=== PATIENT | male | born 1990 | race Caucasian/White ===

== ENCOUNTER 2017-03-06 11:57 | Inpatient (IN) | payer OTHER ==
[~2017-03-06] VITALS: Ht 200.7 cm; Wt 78.2 kg
[2017-03-06] VITALS (8 sets, daily range): BP systolic 107–143; BP diastolic 66–80; PULSE 58–114; RESP 14–22; O2SAT 94–100
--- NOTE | 2017-03-06 13:01 | ED.REPORT ---
HPI-General Illness Date of Service Mar 06, 2017 ED Provider: Nathan Paz DO 27 y/o male with no pertinent hx presents to the ED complaining of 3 episodes of hematemesis about a week ago. The pt was seen at the urgent care for the same complaint and was discharged with antacids, iron and muscle relaxers. Associated sx include melena for a couple of days that gradually resolved, epigastric pain, lower extremity edema, dizziness and fatigue. The pt has been taking Ibuprofen due to his "aggravated back".The pt states "I feel like I'm missing blood. I lost a lot of it and I need a blood transfusion". Nursing Notes Stated Complaint: VOMITING BLOOD/BLOOD IN STOOL Chief Complaint: Male Abdominal Pain Nursing Notes Reviewed: Yes Allergies: Coded Allergies: No Known Allergies (Unverified , 03/06/17) General Time Seen by MD: 13:00 Chief Complaint Vomiting (hematemesis) Hx Obtained From: Patient Arrived By: Walk-in Sudden in Onset?: Yes Onset Occurred: 1 week ago Symptom Duration: 1 day Location: : Abdomen Quality: Painful Radiation: : Does not radiate Severity: Current: Mild Severity: Maximum: Mild Recent Healthcare: Recent doctor visit Similar Sx Previous: No Past Medical History Past Medical History none reported Past Surgical History none reported Smoking History Never Smoker Social History Alcohol Use: Denies alcohol use Drug Use: Denies drug use Ambulatory Status Independent Review of Systems Full Review of Systems Constitutional: Reports: Fatigue Cardiovascular: Reports: Edema GI: Reports: Abdominal pain (epigastric pain), Hematemesis (resolved), Melena ( resolved) Musculoskeletal: Reports: Back pain Neurologic: Reports: Dizziness Complete sys rev & neg: except as marked. Physical Exam Vital Signs Vital Signs Date Time Temp Pulse Resp B/P Pulse Ox O2 Delivery O2 Flow Rate FiO2 03/06/17 13:47 143/67 03/06/17 13:47 136/76 03/06/17 13:47 126/69 03/06/17 13:46 94 22 118/77 100 Room Air 03/06/17 12:03 36.8 114 18 116/72 100 Room Air Initial VS: Reviewed Head / Eyes: Atraumatic, Normocephalic Neck: Supple, Non-tender, Full range of motion Respiratory: Breath sounds normal, Clear to auscultation, No respiratory distress Abdomen / GI: Soft, Non-tender Extremities: Vascular intact, Neuro intact, No swelling, No tenderness Skin: Warm, Dry, No cyanosis Neurologic: Alert, Oriented, Nonfocal General/Constitutional: Awake, Alert Thin Cardiovascular: Heart rate NL, Regular rhythm, Heart sounds NL, No gallop, No murmurs, No rubs Upper Ext Edema: Positive: Bilateral 1+ Rectum / Perineum: Atraumatic Stool is light brown Guaiac positive Interpretation & Diagnostics Lab Results Interpretation Result Diagram: 03/06/17 1451 03/06/17 1320 Test 03/06/17 13:20 03/06/17 14:40 03/06/17 14:51 White Blood Count 9.8th/mm3 (3.8-10.1) Red Blood Count 3.07mil/mm3 (4.40-5.80) Mean Corpuscular Volume 76.9fL (81-100) Mean Corpuscular Hemoglobin 23.8pg (27.0-35.0) Mean Corpuscular Hemoglobin Concent 30.9% (32.0-37.0) Red Cell Distribution Width 14.9% (12.3-15.4) Platelet Count 333bil/L (150-400) Neutrophils (%) (Auto) 76.2% (40-74) Lymphocytes (%) (Auto) 12.7% (14-46) Monocytes (%) (Auto) 9.1% (4-12) Eosinophils (%) (Auto) 1.4% (0-5) Basophils (%) (Auto) 0.2% (0-3) Prothrombin Time 11.7sec (8.1-12.5) Prothromb Time International Ratio 1.09ratio Sodium Level 137mEq/L (134-144) Potassium Level 4.4mEq/L (3.5-5.2) Chloride Level 94mEq/L (97-108) Carbon Dioxide Level 29mmol/L (18-29) Blood Urea Nitrogen 14mg/dL (6-20) Creatinine 0.67mg/dL (0.76-1.27) Estimat Glomerular Filtration Rate 151mL/min (>59) Glucose Level 116mg/dL (60-99) Calcium Level 9.0mg/dL (8.5-10.1) Total Bilirubin 0.2mg/dL (0.0-1.2) Aspartate Amino Transf (AST/SGOT) 65U/L (0-50) Alanine Aminotransferase (ALT/SGPT) 77U/L (0-44) Alkaline Phosphatase 377U/L (25-150) Total Protein 6.1g/dL (6.4-8.4) Albumin 3.1g/dL (3.4-5.0) Hepatitis C Comment . Hemoglobin 6.8g/dL (13.8-17.2) Hematocrit 22.0% (41.0-50.0) X-Ray Chest Interpretation Chest Xray Interpretation: IMPRESSION: No acute cardiopulmonary abnormality Dictated by: David Greer M.D. on 03/06/2017 at 13:24 Approved by: David Greer M.D. on 03/06/2017 at 13:26 View: Portable, 1 view Interpretation / Wet Read by: Interpret - Radiologist Re-Eval/Medical Decision Med Decision/Clinical Course Symptomatic anemia likely due to upper GI bleeding although the patient does not seem to be actively hemorrhaging at this point. We will plan to transfuse in the ER, IV Protonix given, will admit. Time of Eval: 13:50 Re-Evaluation/Progress Note: Rechecked pt. Discussed lab results, imaging results, diagnosis and plan to admit. Pt understands and agrees with the plan for admission. All questions addressed. Consultation #1: Referral / Consult Name: Wild Green MD Call Returned at: 14:01 Orthodontic Treatment Coordinator: Will see patient, Agrees with eval, Agrees with plan Note: Dr. Green will scope the pt tomorrow morning. Consultation #2: Referral / Consult Name: Sravan Marina MD Consulted With: Hospitalist Call Returned at: 14:19 Orthodontic Treatment Coordinator: Will see patient, Agrees with eval, Agrees with plan, Accepts admit Counseled Regarding: Diagnosis, Lab results, Need for admission Discharge & Departure Primary Impression: GI bleed Additional Impression: Symptomatic anemia Disposition: ADMITTED TO HOSPITAL Discharge Condition All VS Reviewed: Yes Referrals: NOPCP (PCP) Crit Care Except Billable Proc Time Spent: 30-74 minutes Services Performed: Patient management by me, Time spent at bedside, Reviewing test results Critical Care Notes: See MDM Scribe Attestation Portions of this note were transcribed by Soni Davison. I,, personally performed the history, physical exam and medical decision-making;I reviewed and confirmed the accuracy of the information in the transcribed note. Signed by Arabella Pinto. 03/06/17 15:54 Nathan Paz DO Mar 06, 2017 13:01 Soni Davison Mar 06, 2017 13:28
[2017-03-06] MEDS ORDERED: 0.9% Sodium Chloride 1,000 ML IV ONE (13:05)
--- NOTE | 2017-03-06 13:28 | DRSVH ---
PROCEDURE: X-RAY CHEST ONE VIEW, PORTABLE ([id number]) INDICATIONS: sob TECHNIQUE: One view of the chest was acquired. COMPARISON: None. FINDINGS: Surgical changes and devices: None. Lungs and pleura: No pleural effusions or pneumothorax. Lungs are clear. Mediastinum: Mediastinal contours appear normal. Heart size is normal. Bones and chest wall: No suspicious bony lesions. Right first rib is mildly hypoplastic. Healed rib fractures left seventh, eighth, ninth and 10th. Overlying soft tissues appear unremarkable. IMPRESSION: No acute cardiopulmonary abnormality Dictated by: David Greer M.D. on 03/06/2017 at 13:24 Approved by: David Greer M.D. on 03/06/2017 at 13:26
[2017-03-06] MEDS ORDERED: LidocaineVisc 2%:Antacid 1:1 10 mL Syringe PO ONE (13:30)
[2017-03-06 13:36] LABS: BASOPHILS % (AUTO) 0.2 % (0-3); EOSINOPHILS % (AUTO) 1.4 % (0-5); MONOCYTES % (AUTO) 9.1 % (4-12); Mean Corpuscular Hemoglobin 23.8 pg (27.0-35.0); Mean Corpuscular Volume 76.9 fL (81-100); NEUTROPHILS % (AUTO) 76.2 % (40-74); Platelet Count 333 bil/L (150-400)
[2017-03-06] MEDS ORDERED: Pantoprazole 4 mg/mL 10 mL Inj IVPUSH ONE (13:55)
[2017-03-06 14:10] LABS: INR 1.09 ratio
[2017-03-06] MEDS ORDERED: Alum-Mag Hydrox-Simeth 30 mL Suspension PO PRN (15:00)
[2017-03-06] MEDS ORDERED: Polyethylene Glycol (PEG) 17 Gm Powder PO PRN (15:00)
[2017-03-06] MEDS ORDERED: Ondansetron 2 mg/mL 2 mL Inj IVPUSH PRN (15:00)
--- NOTE | 2017-03-06 15:25 | PCM.HPMED ---
Subjective Date of Service Mar 06, 2017 Primary Provider: Admitting Physician: Primary Care Physician: Griselda Attending Physician: Chief Complaint: Vomiting blood History of Present Illness: Curtis Malloy is a 27-year-old man without significant past medical history who presented to the [facility] emergency department today due to 3 episodes of hematemesis on Sunday. Patient also notes that he passed some "maki pie filling" appearing stools. The patient has not had any further episodes of hematemesis or melena or hematochezia since Sunday however he has noted that he is quite fatigued and becomes very tachycardic with any exertion. Patient also noticed lower extremity edema for the last 2 days. Patient states that his hematemesis was abrupt in onset and was not preceded by any retching or other emesis. He has previously had a gastric ulcer which was attributed to stress. The patient apparently was seen at urgent care for this complaint and was discharged home with some antacids iron and muscle relaxants. The patient has also noted some epigastric pain. The patient does admit to taking some ibuprofen recently however he states that he took about 600 mg maybe every third day the last several weeks due to back pain. Patient does note that he feels very fatigued and previously in this situation did receive blood and felt significant better. She denies any fevers, chills, nausea. In the emergency department his vital signs were notable for a heart rate of 119 and a blood pressure 116/72. His stool was guaiac positive but brown in appearance per ER documentation. A blood transfusion is pending at this time. Dr. Green of gastroenterology was consulted and has agreed to see the patient. Patient will likely undergo EGD tomorrow morning. Review of Systems: A comprehensive review of systems was performed and is negative except as noted above in history present illness. Allergies Coded Allergies: No Known Allergies (Unverified , 03/06/17) Home Medications Patient denies taking any medications chronically. PMH Patient denies any chronic health problems. Surgical History Patient denies any surgeries. Family History No family history of gastrointestinal problems. Social History Hx Alcohol Use: No Hx Substance Use: Yes (occasional marijuana) Hx Tobacco Use: No Smoking Status: Never Smoker Exam Vital Signs Vital Sign - Last Date Time Temp Pulse Resp B/P Pulse Ox O2 Delivery O2 Flow Rate FiO2 03/06/17 13:47 143/67 03/06/17 13:46 94 22 100 Room Air 03/06/17 12:03 36.8 Exam General: No acute distress, well-developed, well-nourished, appropriately interactive. Marfanoid in appearance. HEENT: Normocephalic, atraumatic. External ears without defect. Pupils equal, round, and reactive to light and accommodation. Anicteric sclerae, moist conjunctivae, and no lid lag. Oropharynx free of erythema and cobble stoning with moist mucosa. Neck: Supple with full range of motion. No jugular venous distension. No lymphadenopathy or thyromegaly. Cardiovascular: Regular rate and rhythm with no murmurs, rubs, or gallops appreciated Pulmonary: Clear to auscultation bilaterally with no crackles, wheezes, or rhonchi. Normal respiratory effort with no use of accessory muscles. Abdomen: Bowel tones present. Soft, mild epigastric tenderness, nondistended. No hepatosplenomegaly or masses appreciated. Extremities: No clubbing, cyanosis. Bilateral nonpitting edema of feet and ankles. Skin: Normal temperature, turgor, and texture; no rash, ulcers, or subcutaneous nodules appreciated. Neurological: Cranial nerves grossly intact. Normal muscle strength, tone, and bulk. Reflexes, coordination, and sensory function within normal limits. No known gait impairment. Psychiatric: Normal mood and affect. Alert and oriented to person, place, and time. Lab and Diagnostics Result Diagram: 03/06/17 1320 03/06/17 1320 X-Rays, CTs and MRIs X-RAY CHEST ONE VIEW, PORTABLE IMPRESSION: No acute cardiopulmonary abnormality Dictated by: David Greer M.D. on 03/06/2017 at 13:24 Assessment & Plan Curtis Malloy is a 27-year-old man without significant past medical history who presented to the [facility] emergency department today due to 3 episodes of hematemesis on Sunday. Patient also notes that he passed some "maki pie filling" appearing stools. The patient has not had any further episodes of hematemesis or melena or hematochezia since Sunday however he has noted that he is quite fatigued and becomes very tachycardic with any exertion. Acute gastrointestinal bleed, likely upper, with associated acute blood loss anemia, present on admission, active - Etiology of gastric chest no bleed is unclear at this time. Patient has had prior EGDs however these were not performed here and no records are available. - Patient does admit to using some NSAIDs however this is not seen to be a very significant amount. - Differential includes AVM associated with connective tissue disorder - Patient has been initiated on a Protonix drip will continue. - Nothing by mouth - IV fluid resuscitation - We will track H&H - Blood transfusion as ordered in the emergency department. - Telemetry monitoring - Gastroneurology consulted, appreciate time and recommendations. Patient will likely undergo EGD tomorrow. Elevated LFTs, hepatocellular patern, present on admission, active -Patient denies any alcohol use or IV drug use -Hepatitis panel pending Marfinoid appearance -Recommend outpatient workup Code Status: Full code Patient is admitted under inpatient status with expected length of stay greater than 2 midnights due to severity of presenting symptoms, risk of adverse event, and complexity of treatment plan. VTE Prophylaxis: SCDs Resuscitation Status: CPR: Attempt Resuscitation Ankita Mariano DO Mar 06, 2017 15:02
[2017-03-06] MEDS ORDERED: Heparin 5,000 Unit/mL Inj SUBQ SCH (16:30)
[2017-03-06] MEDS: 0.9% Sodium Chloride 1,000 ML IV SCH (16:55)
[2017-03-06] MEDS: Pantoprazole 8 mg/Hr Infusion IV SCH ×2 (16:56)
--- NOTE | 2017-03-06 23:11 | CONS ---
[address] [address] CONSULTATION REPORT PATIENT: DREA PELAYO : 1990 MR#: [id number] ADMIT: 03/06/2017 JOB ID: [id number] DATE OF SERVICE: 03/06/2017 REQUESTING PROVIDER: Nathan Paz MD. REASON FOR CONSULTATION: Anemia and GI bleeding. HISTORY OF PRESENT ILLNESS: This is a 27-year-old male who was basically in his usual state of health up until about nine or 10 days ago. He had been taking ibuprofen regularly but not every day for a number of musculoskeletal issues. He developed both hematemesis and melena several times for a short period of time, going from Sunday night through Sunday. Since then, he has not had any further GI bleeding but has been quite pale and felt fatigued and weak. He was seen in urgent care a few days ago, and they recommended he use a little omeprazole, iron and gave him a muscle relaxer. He started to have some symptoms of lower extremity edema along with a little bit of epigastric discomfort and has really had, in essence, early satiety. He came in for further evaluation and was found to be profoundly anemic. ALLERGIES: No known medical allergies MEDICATIONS: Ibuprofen PRN PAST MEDICAL HISTORY: Unremarkable. PAST SURGICAL HISTORY: Unremarkable. FAMILY HISTORY: No GI issues. SOCIAL HISTORY: Denies any substance abuse. Does not use alcohol or tobacco. He is very active and enjoys long boarding. REVIEW OF SYSTEMS: The patient believes that he has probably lost around 30 pounds although he does not really know just how long it has taken for him to drop weight. He denies any problems with dysphagia, heartburn, and currently has no problems with nausea, has not vomited, although weak, as mentioned above. He did have an element of some night sweats but that was around 9-10 days ago and was very short-lived. Otherwise, his review is as per HPI. PHYSICAL EXAMINATION: Blood pressure 121/80, pulse 58, breathing 16, temperature 36.8, 94% on room air. The patient is in no distress. Alert, oriented, appropriate, cooperative, conversational. Family members were at the bedside with him. Lungs clear bilaterally. Good respiratory effort. Heart regular. No significant peripheral pitting edema, perhaps trace bilaterally. Abdomen was soft. There was a minimal amount of discomfort right at the xiphoid process region. No guarding. LABORATORIES: Hemoglobin this morning was 7.3, on the recheck 6.8, white count is normal at 9.8, low MCV at 76.9, platelet count was 333. His INR was 1.09. He has an elevated alkaline phosphatase of 377. AST was 65, ALT 77, bilirubin 0.2, albumin is 3.1. Sodium 137, potassium 4.4, chloride 94, bicarb 29, BUN 14, creatinine 0.67, glucose 116. Hepatitis serologies are pending. IMAGING: Chest x-ray shows no acute cardiopulmonary abnormality. ASSESSMENT AND RECOMMENDATIONS: This is a 27-year-old male with severe anemia and a very brief period of upper gastrointestinal bleeding. He has had weight loss and presentation demonstrates a microcytic picture concerning for a much more chronic underlying GI blood loss. He has been using NSAIDs frequently over the last months. Liver chemistry abnormalities are certainly concerning as well. I think the patient can be on a clear liquid diet this evening, n.p.o. after 9-10 in the morning and we plan to proceed with a diagnostic upper endoscopy. I agree with the proton pump inhibitor placed on as of admission. I agree with hepatitis serology, but in light of his liver chemistries and his presentation with weight loss, I think that abdominal imaging would be appropriate as well and would recommended at least starting out with an abdominal ultrasound. EMIR
[2017-03-07] VITALS (11 sets, daily range): BP systolic 109–127; BP diastolic 67–83; PULSE 62–99; RESP 14–18; O2SAT 96–100
[2017-03-07] MEDS: 0.9% Sodium Chloride 1,000 ML IV SCH ×3 (02:31→23:40)
[2017-03-07] MEDS: Pantoprazole 8 mg/Hr Infusion IV SCH ×4 (02:47→11:56)
[2017-03-07 03:09] LABS: Hepatitis A Antibody IgM Negative (Negative); Hepatitis B Core Antibody IgM Negative (Negative)
--- NOTE | 2017-03-07 04:06 | NUR ---
Comfort At the beginning of shift, patient stated he was having difficulty getting comfortable in his bed because he is fairly tall. Patient asked if it would be possible to get a larger bed. Patient was given a bed that extended out and stated it was much more comfortable for him. Patient has no complaints of pain but states he has difficulty sleeping baseline, because he has a hard time getting comfortable even when he has more options at home. Patient was asked if he would be interested in trying to take medication to help him sleep, but the patient stated he was not interested. Patient A&OX3. Order's for patient to be NPO after 10am on 03/07. Care continues.
[2017-03-07 06:15] LABS: BASOPHILS % (AUTO) 0.2 % (0-3); MONOCYTES % (AUTO) 9.4 % (4-12); Mean Corpuscular Hemoglobin 24.5 pg (27.0-35.0); Mean Corpuscular Volume 78.2 fL (81-100); NEUTROPHILS % (AUTO) 75.2 % (40-74); Platelet Count 328 bil/L (150-400)
[2017-03-07] MEDS ORDERED: Propofol 10,000 mCg/mL 20 mL Inj ONE (09:24)
--- NOTE | 2017-03-07 11:56 | DRSVH ---
PROCEDURE: US ABDOMEN INDICATIONS: ABNORMAL LIVER FUNCTION TEST TECHNIQUE: Real-time scanning was performed of the abdominal and retroperitoneal organs, with image documentatio n. COMPARISON: None. FINDINGS: Liver length: 19.69 cm Gallbladder Wall Thickness: 2-3 mm CHD: Nonvisualized CBD: Nonvisualized Spleen length: 11.86 cm Right kidney length: 14.33 cm Left kidney length: Nonvisualized Aorta(Proximal): 1.98 cm Aorta(Mid): 2.12 cm Aorta(Distal): 1.81 cm RCIA: Nonvisualized LCIA: Nonvisualized Liver: Multiple hypoechoic masses measuring up to 3.6 x 2.8 x 2.4 CM in the left hepatic lobe and 3. 6 x 2.7 x 2.8 CM in the right hepatic lobe.. Gallbladder: Normal gallbladder wall thickness. No cholelithiasis. Biliary ducts: Intrahepatic bile ducts are non-dilated. Extrahepatic bile duct caliber is not well seen. Pancreas: Visualized portions of the pancreas are sonographically normal. Spleen: Spleen is normal in size and homogeneous in echotexture. Kidneys: Right kidney measures 14.3 CM with mildly increased echogenicity. No hydronephrosis. No leah d masses. The left kidney is not identified and cannot be evaluated. Aorta: Visualized aorta is normal in caliber at less than 3 cm. Iliacs: Proximal common iliac arteries are normal in caliber at less than 2.5 cm. IVC: Intrahepatic inferior vena cava is patent. Miscellaneous: No free abdominal fluid. IMPRESSION: 1. Multiple hepatic masses are indeterminate. Recommend CT or MRI with and without contrast for furth er evaluation. 2. The left kidney is not identified. Please correlate with clinical history. Dictated by: New Powers M.D. on 03/07/2017 at 11:49 Approved by: New Powers M.D. on 03/07/2017 at 11:54
[2017-03-07] MEDS ORDERED: Lactated Ringer's 1,000 ML IV ONE (14:34)
[2017-03-07] MEDS: Lactated Ringer's 1,000 ML IV SCH ×3 (15:32→16:14)
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
[2017-03-07] MEDS ORDERED: Ondansetron 2 mg/mL 2 mL Inj IVPUSH PRN (15:35)
[2017-03-07] MEDS ORDERED: MetoCLOpramide 5 mg/mL 2 mL Inj IVPUSH PRN (15:35)
--- NOTE | 2017-03-07 16:15 | PCM.ANEP1 ---
Post Anesthesia PACU Phase 1 Assessment Date of Service: Mar 07, 2017 Vital Signs Vital Signs Date Time Temp Pulse Resp B/P Pulse Ox O2 Delivery O2 Flow Rate FiO2 03/07/17 16:12 36.7 99 16 109/83 100 Room Air 03/07/17 14:08 36.4 73 16 127/76 98 Room Air 03/07/17 12:30 36.5 62 18 124/75 97 Room Air 03/07/17 10:43 86 Anesthetic Administered: GA Level of Alertness: Sleeping, hard to arouse RAHMAN's with Equal Strength: Yes Pain: No Nausea or Vomiting: No CV Function & Hydration Stable: Yes Airway Device: Oxygen Delivery: Room Air Lungs: Normal Air Movement Dermatome Level: Full Sensation PACU Phase 2 Assessment Complications: No Follow up Care: N/A Patient Instructions Provided: N/A Ronald Moore MD Mar 07, 2017 16:15
--- NOTE | 2017-03-07 17:23 | ENDO ---
[address] [address] ENDOSCOPY PROCEDURE PATIENT: DREA PELAYO : 1990 MR#: [id number] ADMIT: 03/06/2017 JOB ID: [id number] DATE OF SERVICE: 03/07/2017 PROCEDURE: Esophagogastroduodenoscopy with biopsies. INDICATIONS: A 27-year-old male with microcytic severe anemia and subacute upper GI bleeding from about 10 or 11 days ago. He has stabilized since then but has lost 30 pounds over an unknown period of time. He had an ultrasound today for abnormal liver chemistries and there were several mass lesions seen. Diagnostic EGD is pursued. EQUIPMENT: [id number]-180J SEDATION: Monitored anesthesia as provided by Dr. Ronald Moore. COMPLICATIONS: None identified. PROCEDURE INFORMATION: After the risks and benefits were explained, written and verbal informed consent was obtained. The patient was brought into the endoscopy suite and placed into the left lateral decubitus position. Sedation was achieved using the above-stated medications with the addition of oxygen via nasal cannula. The scope was introduced into the mouth through the bite block, and advanced under direct visualization ultimately to the second portion of the duodenum. The scope was slowly withdrawn to carefully examine the mucosa for any defects or lesions. Retroflexed views were accomplished in the stomach. The stomach was decompressed. The scope removed from the patient who tolerated the procedure well. FINDINGS: 1. Esophagus: The squamocolumnar junction correlated with the top of the gastric folds. The GEJ was at 46 cm from the incisors. Right at the GE junction was evidence of irregular polypoid structures that prolapsed up and down into the distal esophagus. One of these areas was targeted for biopsy. 2. Stomach: The patient had diffuse gastric polyposis and a large well excavated mass that was quite polypoid in the mid body of the stomach. Multiple photographs were taken of the deep well excavated ulcer with surrounding polypoid appearing mucosa. This was targeted for biopsy. A separate biopsy was taken from more proximal gastric polyp. I was able to navigate the scope past the ulcerated mass effect into the antrum. The pyloric channel appeared to be wide open. 3. Duodenum: There were some scattered diminutive polypoid structures in the duodenum. One of these was sampled for histopathology as well. ENDOSCOPIC DIAGNOSES: 1. Ulcerated highly polypoid mass effect in the gastric body - biopsied. 2. Gastric and duodenal polyposis - biopsied. RECOMMENDATIONS: 1. Await histopathology. 2. Full liquid diet can be commenced today. 3. Continue PPI drip for now. 4. Hepatic protocol MRI is ordered. 5. I would recommend Oncology consultation. Obviously will see what the histopathology reveals but I am concerned about the possibility of some form of gastric lymphoma. 6. If Helicobacter is found, it will certainly need to be eradicated with standard triple therapy.
--- NOTE | 2017-03-07 18:01 | PCM.PNMED ---
Subjective Date of Service Mar 07, 2017 Subjective Patient denies any continued hematemesis or melena. Denies any current abdominal pain. Exam Vital Signs Vital Sign - Last Date Time Temp Pulse Resp B/P Pulse Ox O2 Delivery O2 Flow Rate FiO2 03/07/17 17:03 36.8 63 16 125/79 98 Room Air Intake and Output 03/06/17 03/06/17 03/07/17 Cumulative From/Thru 15:00 23:00 07:00 03/06/17 12:03 - 03/07/17 06:41 Intake Total 1000 ml 1000 ml 1761 ml 3761 ml Balance 1000 ml 1000 ml 1761 ml 3761 ml Intake Oral 440 ml 440 ml IV Total 1000 ml 1000 ml 1321 ml 3321 ml # Voids 6 6 # Bowel Movements 0 0 Exam General: No acute distress, well-developed, well-nourished, appropriately interactive. Marfanoid in appearance. HEENT: Normocephalic, atraumatic. External ears without defect. Pupils equal, round, and reactive to light and accommodation. Anicteric sclerae, moist conjunctivae, and no lid lag. Oropharynx free of erythema and cobble stoning with moist mucosa. Neck: Supple with full range of motion. No jugular venous distension. No lymphadenopathy or thyromegaly. Cardiovascular: Regular rate and rhythm with no murmurs, rubs, or gallops appreciated Pulmonary: Clear to auscultation bilaterally with no crackles, wheezes, or rhonchi. Normal respiratory effort with no use of accessory muscles. Abdomen: Bowel tones present. Soft, mild epigastric tenderness, nondistended. No hepatosplenomegaly or masses appreciated. Extremities: No clubbing, cyanosis. Bilateral nonpitting edema of feet and ankles. Skin: Normal temperature, turgor, and texture; no rash, ulcers, or subcutaneous nodules appreciated. Neurological: Cranial nerves grossly intact. Normal muscle strength, tone, and bulk. Reflexes, coordination, and sensory function within normal limits. No known gait impairment. Psychiatric: Alert and oriented to person, place, and time. Agitated and anxious IVs and Medications Medications Reviewed: Medications were reviewed in detail Lab and Diagnostics Laboratory Tests Test 03/07/17 05:35 White Blood Count 10.3th/mm3 (3.8-10.1) Red Blood Count 3.35mil/mm3 (4.40-5.80) Hemoglobin 8.2g/dL (13.8-17.2) Hematocrit 26.2% (41.0-50.0) Mean Corpuscular Volume 78.2fL (81-100) Mean Corpuscular Hemoglobin 24.5pg (27.0-35.0) Mean Corpuscular Hemoglobin Concent 31.3% (32.0-37.0) Red Cell Distribution Width 15.0% (12.3-15.4) Platelet Count 328bil/L (150-400) Neutrophils (%) (Auto) 75.2% (40-74) Lymphocytes (%) (Auto) 12.8% (14-46) Monocytes (%) (Auto) 9.4% (4-12) Eosinophils (%) (Auto) 2.0% (0-5) Basophils (%) (Auto) 0.2% (0-3) Sodium Level 139mEq/L (134-144) Potassium Level 4.2mEq/L (3.5-5.2) Chloride Level 98mEq/L (97-108) Carbon Dioxide Level 27mmol/L (18-29) Blood Urea Nitrogen 10mg/dL (6-20) Creatinine 0.69mg/dL (0.76-1.27) Estimat Glomerular Filtration Rate 146mL/min (>59) Glucose Level 108mg/dL (60-99) Calcium Level 9.1mg/dL (8.5-10.1) Total Bilirubin 0.5mg/dL (0.0-1.2) Aspartate Amino Transf (AST/SGOT) 58U/L (0-50) Alanine Aminotransferase (ALT/SGPT) 73U/L (0-44) Alkaline Phosphatase 381U/L (25-150) Total Protein 5.7g/dL (6.4-8.4) Albumin 3.2g/dL (3.4-5.0) Result Diagram: 03/07/17 0535 03/07/17 0535 X-Rays, CTs and MRIs X-RAY CHEST ONE VIEW, PORTABLE IMPRESSION: No acute cardiopulmonary abnormality Dictated by: David Greer M.D. on 03/06/2017 at 13:24 Date of Service: 03/07/17 0859 US ABDOMEN IMPRESSION: 1. Multiple hepatic masses are indeterminate. Recommend CT or MRI with and without contrast for further evaluation. 2. The left kidney is not identified. Please correlate with clinical history. Additional Diagnostics DATE OF SERVICE: 03/07/2017 PROCEDURE: Esophagogastroduodenoscopy with biopsies. FINDINGS: 1. Esophagus: The squamocolumnar junction correlated with the top of the gastric folds. The GEJ was at 46 cm from the incisors. Right at the GE junction was evidence of irregular polypoid structures that prolapsed up and down into the distal esophagus. One of these areas was targeted for biopsy. 2. Stomach: The patient had diffuse gastric polyposis and a large well excavated mass that was quite polypoid in the mid body of the stomach. Multiple photographs were taken of the deep well excavated ulcer with surrounding polypoid appearing mucosa. This was targeted for biopsy. A separate biopsy was taken from more proximal gastric polyp. I was able to navigate the scope past the ulcerated mass effect into the antrum. The pyloric channel appeared to be wide open. 3. Duodenum: There were some scattered diminutive polypoid structures in the duodenum. One of these was sampled for histopathology as well. ENDOSCOPIC DIAGNOSES: 1. Ulcerated highly polypoid mass effect in the gastric body - biopsied. 2. Gastric and duodenal polyposis - biopsied. Assessment & Plan Curtis Malloy is a 27-year-old man without significant past medical history who presented to the [facility] emergency department today due to 3 episodes of hematemesis on Sunday. Patient also notes that he passed some "maki pie filling" appearing stools. The patient has not had any further episodes of hematemesis or melena or hematochezia since Sunday however he has noted that he is quite fatigued and becomes very tachycardic with any exertion. 03/07-EGD Findings of Ulcerated highly polypoid mass effect in the gastric body and Gastric and duodenal polyposis #Acute Upper gastrointestinal bleed with associated acute blood loss anemia, present on admission, active - 03/07-EGD Findings of Ulcerated highly polypoid mass effect in the gastric body and Gastric and duodenal polyposis. NSAID use may have contributed. Last episode of melena or hematemesis was over 1 week ago. - Patient has been initiated on a Protonix drip will continue. - IV fluid resuscitation - We will track H&H - Blood transfusion with hemoglobin transfusion threshold of less than 7. #Ulcerated highly polypoid mass effect in the gastric body and Gastric and duodenal polyposis found on EGD 03/07. Concern for Malignancy. - Gastroenterology Following- Dr. [place]. appreciate time and recommendations. Performed EGD with above findings. Multiple indeterminate hepatic masses found on US. GI Recs- - Await histopathology. - Full liquid diet can be commenced today. - Continue PPI drip for now. - Hepatic protocol MRI is ordered. - If Helicobacter is found treat with standard triple therapy. -consult to oncology. # Elevated LFTs, present on admission, active. Multiple indeterminate hepatic masses found on US. Concern for Malignancy given EGD findings. -Patient denies any alcohol use or IV drug use -Hepatitis panel was negative -GI Following, will consult Oncology. - Hepatic MRI is ordered. #Marfinoid appearance -Recommend outpatient workup Code Status: Full code Patient is admitted under inpatient status with expected length of stay greater than 2 midnights due to severity of presenting symptoms, risk of adverse event, and complexity of treatment plan. Pain Evaluation: Adequate Pain Control GI Prophylaxis: Proton Pump Inhibitor VTE Prophylaxis: SCDs VTE Mechanical Devices: Intermittant Pneumatic CD Resuscitation Status: CPR: Attempt Resuscitation Nadeem Richards MD Mar 07, 2017 17:44
--- NOTE | 2017-03-07 18:29 | NUR ---
Heart Rate, Activity Patient alert and oriented this shift. 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 Patient denies nausea, pain, emesis or blood in stool. Care is ongoing.
[2017-03-08] VITALS (8 sets, daily range): BP systolic 102–127; BP diastolic 60–85; PULSE 66–100; RESP 16–19; O2SAT 95–100
[2017-03-08] MEDS: Pantoprazole 8 mg/Hr Infusion IV SCH ×6 (00:54→17:35)
--- NOTE | 2017-03-08 04:52 | NUR ---
Pain/anxiety Pt reports some generalized body pain but has a difficult time communicating the exact nature of his discomfort or what can be done to relieve it. Also has a difficult time sleeping, has been anxious per family report although pt is appropriate and calm with all staff. Obtained new order for pain medication and sleep aid. Pt reports still only sleeping a limited amount but states it is adequate. Tolerating full liquid diet without nausea. Hourly rounding ongoing.
--- NOTE | 2017-03-08 08:37 | DRSVH ---
PROCEDURE: MRI ABDOMEN WITH AND WITHOUT CONTRAST ([id number]) INDICATIONS: Abnormal u/s. Needs to be hepatic protocol. TECHNIQUE: Coronal HASTE, axial 2D FLASH in- and [id number]; axial breath-hold T2 FSE. Dynamic axial VIBE dur ing the administration of contrast; post-contrast coronal VIBE or 2D FLASH with fat saturation from t he hepatic dome to the iliac crests. Optional diffusion weighted imaging and ADC may be performed. COMPARISON: [facility], CR, XR CHEST 1VW (PORTABLE), 03/06/2017, 12:58. [facility], US, US ABDOMEN, 03/07/2017, 9:38. FINDINGS: Image quality: Excellent. Lung bases: No basal pleural effusions. Heart size is normal. Solid organs: There are innumerable hepatic masses demonstrating hypointense T1 and hyperintense T2 signal. On Eovist enhanced images, hepatic lesions demonstrate hypointense signal compared to liver o n arterial, portal venous and delayed (hepatocellular phase) images. A physician relations representative lesion in the p osterior segment of the right hepatic lobe (segment 5) measures 3.6 cm (series 4 image 37). A represe ntative lesion in the left hepatic lobe (segment 2) measures 3.0 cm. There is no intrahepatic biliary dilation. Portal vein is patent. Spleen is normal in size and enhancement. Gallbladder is normal. Biliary system is non dilated. Pa ncreas is normal in morphology. No adrenal nodules. The left kidney is absent. There is compensatory hypertrophy of the right kidney. No hydronephrosis. Nodes and vessels: There is a 1.5 cm periportal lymph node. Aorta is normal in size. Inferior vena cava is left of the aorta below the renal vein. Bowel and peritoneum: Unenhanced bowel loops are normal in caliber. No free fluid. Bones and soft tissues: No ventral hernias. Bone marrow is normal in overall signal. IMPRESSION: 1. Innumerable hepatic masses highly suspicious for malignant neoplasms such as lymphoma or metastase s. CT of the chest, abdomen and pelvis is recommended if clinically indicated. Percutaneous biopsy m ay be feasible under ultrasound guidance. 2. Mild periportal lymphadenopathy. 3. Absence of left kidney. There is compensatory hypertrophy of right kidney. 4. Left IVC. Dictated by: Paul Nieves M.D. on 03/08/2017 at 8:11 Transcribed by: RAMO on 03/08/2017 at 8:35 Approved by: Paul Nieves M.D. on 03/08/2017 at 22:34
[2017-03-08] MEDS: 0.9% Sodium Chloride 1,000 ML IV SCH ×2 (09:41→19:55)
[2017-03-08 11:23] LABS: BASOPHILS % (AUTO) 0.3 % (0-3); EOSINOPHILS % (AUTO) 1.8 % (0-5); MONOCYTES % (AUTO) 9.5 % (4-12); Mean Corpuscular Volume 78.5 fL (81-100); NEUTROPHILS % (AUTO) 77.8 % (40-74); Platelet Count 351 bil/L (150-400)
--- NOTE | 2017-03-08 12:44 | PCM.PNMED ---
Subjective Date of Service Mar 08, 2017 Subjective Patient currently has no pain. Tolerated diet well. Overnight events. Exam Vital Signs Vital Sign - Last Date Time Temp Pulse Resp B/P Pulse Ox O2 Delivery O2 Flow Rate FiO2 03/08/17 10:52 36.7 82 19 102/62 100 Room Air Intake and Output 03/07/17 03/07/17 03/08/17 Cumulative From/Thru 15:00 23:00 07:00 03/06/17 12:03 - 03/08/17 06:03 Intake Total 1896 ml 2992 ml 8649 ml Output Total 2200 ml 2240 ml 4440 ml Balance -304 ml 752 ml 4209 ml Intake Oral 1896 ml 826 ml 3162 ml IV Total 0 ml 2166 ml 5487 ml Output Urine Total 2200 ml 2240 ml 4440 ml # Voids 6 # Bowel Movements 2 0 2 Exam General: No acute distress, well-developed, well-nourished, appropriately interactive. Marfanoid in appearance. HEENT: Normocephalic, atraumatic. External ears without defect. Pupils equal, round, and reactive to light and accommodation. Anicteric sclerae, moist conjunctivae, and no lid lag. Oropharynx free of erythema and cobble stoning with moist mucosa. Neck: Supple with full range of motion. No jugular venous distension. No lymphadenopathy or thyromegaly. Cardiovascular: Regular rate and rhythm with no murmurs, rubs, or gallops appreciated Pulmonary: Clear to auscultation bilaterally with no crackles, wheezes, or rhonchi. Normal respiratory effort with no use of accessory muscles. Abdomen: Bowel tones present. Soft, mild epigastric tenderness, nondistended. No hepatosplenomegaly or masses appreciated. Extremities: No clubbing, cyanosis. Bilateral nonpitting edema of feet and ankles. Skin: Normal temperature, turgor, and texture; no rash, ulcers, or subcutaneous nodules appreciated. Neurological: Cranial nerves grossly intact. Normal muscle strength, tone, and bulk. Reflexes, coordination, and sensory function within normal limits. No known gait impairment. Psychiatric: Alert and oriented to person, place, and time. Pleasant IVs and Medications Medications Reviewed: Medications were reviewed in detail Lab and Diagnostics Result Diagram: 03/08/17 0725 03/08/17 0725 X-Rays, CTs and MRIs 02/18-MRI ABDOMEN WITH AND WITHOUT CONTRAST ([id number]) Solid organs: There are innumerable hepatic masses demonstrating hypointense T1 and hyperintense T2 signal. On Eovist enhanced images, hepatic lesions demonstrate hypointense signal compared to liver on arterial, portal venous and delayed (hepatocellular phase) images. A wire rope sales representative lesion in the posterior segment of the right hepatic lobe (segment 5) measures 3.6 cm (series 4 image 37 ). A wire rope sales representative lesion in the left hepatic lobe (segment 2) measures 3.0 cm. There is no intrahepatic biliary dilation. Portal vein is patent. Spleen is normal in size and enhancement. Gallbladder is normal. Biliary system is non dilated. Pancreas is normal in morphology. No adrenal nodules. The left kidney is absent. There is compensatory hypertrophy of the right kidney. No hydronephrosis. Nodes and vessels: No retroperitoneal or mesenteric adenopathy by size criteria. Aorta is normal in size. Inferior vena cava is left of the aorta below the renal vein. Bowel and peritoneum: Unenhanced bowel loops are normal in caliber. No free fluid. Bones and soft tissues: No ventral hernias. Bone marrow is normal in overall signal. IMPRESSION: 1. Innumerable hepatic masses highly suspicious for malignant neoplasm such as lymphoma or metastases. CT of the chest, abdomen and pelvis is recommended if clinically indicated. Percutaneous biopsy may be feasible under ultrasound guidance. 2. Absence of left kidney. There is compensatory hypertrophy of right kidney. 3. Left IVC. US ABDOMEN IMPRESSION: 1. Multiple hepatic masses are indeterminate. Recommend CT or MRI with and without contrast for further evaluation. 2. The left kidney is not identified. Please correlate with clinical history. X-RAY CHEST ONE VIEW, PORTABLE IMPRESSION: No acute cardiopulmonary abnormality Dictated by: David Greer M.D. on 03/06/2017 at 13:24 Date of Service: 03/07/17 0859 Additional Diagnostics DATE OF SERVICE: 03/07/2017 PROCEDURE: Esophagogastroduodenoscopy with biopsies. FINDINGS: 1. Esophagus: The squamocolumnar junction correlated with the top of the gastric folds. The GEJ was at 46 cm from the incisors. Right at the GE junction was evidence of irregular polypoid structures that prolapsed up and down into the distal esophagus. One of these areas was targeted for biopsy. 2. Stomach: The patient had diffuse gastric polyposis and a large well excavated mass that was quite polypoid in the mid body of the stomach. Multiple photographs were taken of the deep well excavated ulcer with surrounding polypoid appearing mucosa. This was targeted for biopsy. A separate biopsy was taken from more proximal gastric polyp. I was able to navigate the scope past the ulcerated mass effect into the antrum. The pyloric channel appeared to be wide open. 3. Duodenum: There were some scattered diminutive polypoid structures in the duodenum. One of these was sampled for histopathology as well. ENDOSCOPIC DIAGNOSES: 1. Ulcerated highly polypoid mass effect in the gastric body - biopsied. 2. Gastric and duodenal polyposis - biopsied. Assessment & Plan Curtis Malloy is a 27-year-old man without significant past medical history who presented to the [facility] emergency department today due to 3 episodes of hematemesis on Sunday. Patient also notes that he passed some "maki pie filling" appearing stools. The patient has not had any further episodes of hematemesis or melena or hematochezia since Sunday however he has noted that he is quite fatigued and becomes very tachycardic with any exertion. 03/07-EGD Findings of Ulcerated highly polypoid mass effect in the gastric body and Gastric and duodenal polyposis #Acute Upper gastrointestinal bleed with associated acute blood loss anemia, present on admission, active - 03/07-EGD Findings of Ulcerated highly polypoid mass effect in the gastric body and Gastric and duodenal polyposis. Last episode of melena or hematemesis was over 1 week ago. -Continue with IV fluids. Continue with Protonix drip. -Hemoglobin has been stable climbing since transfusion on 03/06. -Blood transfusion with hemoglobin transfusion threshold of less than 7. -Follow-up GI recommendations. #Ulcerated highly polypoid mass effect in the gastric body and Gastric and duodenal polyposis found on EGD 03/07. Concern for Malignancy. EGD with above findings. 03/08 MRI Abd- Innumerable hepatic masses highly suspicious for malignant neoplasm such as lymphoma or metastases. family history polyps-mother, brother , grandmother. Gastroenterology Following- Dr. Wild Green. appreciate time and recommendations. - Await histopathology. - Full liquid diet can be commenced today. - Continue PPI drip for now. - If Helicobacter is found treat with standard triple therapy. - He malignancy, patient will need further staging. Oncology consulted- appreciate time and recommendations. Will follow-up recommendations. Chronic Issues- #Absence of left kidney. Per MRI There is compensatory hypertrophy of right kidney. No hx of known Nephrectomy or injuries. 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 Renal function appears to be normal with Scr is 0.67 and GFR 151. - Will avoid nephrotoxic agents. #Marfinoid appearance -Recommend outpatient workup, likely related to single kidney and left IVC. Code Status: Full code Patient is admitted under inpatient status with expected length of stay greater than 2 midnights due to severity of presenting symptoms, risk of adverse event, and complexity of treatment plan. GI Prophylaxis: Proton Pump Inhibitor VTE Prophylaxis: SCDs VTE Mechanical Devices: Intermittant Pneumatic CD Resuscitation Status: CPR: Attempt Resuscitation Nadeem Richards MD Mar 08, 2017 12:44
--- NOTE | 2017-03-08 14:18 | NUR ---
Social Work: Initial Assessment/Multi-Disciplinary Rounds D: EMR reviewed. Please see initial assessment linked to this note for additional details. Pt has a readmit risk score of 1. Pt is a 27 y/o male admitted inpatient for GI bleed symptomatic anemia per H&P. SAMI met with pt and at bedside to conduct initial assessment. Pt was alert and oriented x3. SW explained role and wrote phone number on white board. SW provided "Your Discharge Planning Checklist" and encouraged pt to contact SW for any discharge planning needs that may arise after review of checklist. Pt screened in because he does not have insurance. Per RCA review, pt was seen by RCA and approved for Medicaid. SW met with pt to update pt on Medicaid coverage and discussed PCP. Pt does not have a PCP but would like to schedule a new PCP at [facility]. SW to update MD regarding PCP and will schedule PCP appointment once SW receives PCP order. Pt stated that he lives in a hammock outside. Per MD in rounds, pt's EGD showed multiple polyps and MD has consulted oncology to review for malignancy. Based on rounds, SW discussed pt's housing. Pt stated he chooses to live outside in a hammock because he would rather save money for other more important things. Pt states he has money to have housing but likes to live outside. Pt stated he bathes at his parents, friends, or the gym. Pt states he can go to his parents to live with them at any time. SW asked if pt would be willing to stay with his father (listed as NOK) for continued/safe care after he discharges. Pt agreeable and stated "if I am sick, I will do whatever the doctor recommends." SW asked pt if it was okay to discuss pt's discharge plan/health care with pt's father. Pt agreeable. SW will contact pt's father to determine if he can provide transportation and continued care once pt discharges from the hospital. Pt is independent with all ADLS and self-care at baseline. Pt has a license but does not drive because he would rather use public transportation. Pt does not own or use any DME. Pt's father lives in a single-story, level home in [facility]. Pt states he can go there if needed. Pt's capacity for self-care assessed - SW will contact pt's father to determine if he is able to provide transportation and housing when pt discharges. A: Pt who is independent at baseline. Pt's capacity for self-care assessed - SW to follow-up with pt's father. Pt gave verbal consent for SW to discuss pt's care with his father. P: SW to contact pt's father to determine if he can provide pt transport and temporary housing after pt discharges. Pt to be seen by oncology - SW will continue to follow. MILAGROS Montgomery Addendum: 03/08/17 at 1431 by PENELOPE JOSHI Amended: Links added.
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
--- NOTE | 2017-03-08 22:10 | PCM.PNMED ---
Subjective Date of Service Mar 08, 2017 Subjective patient is feeling well today. He has occasional sharp epigastric pain that is worse with food. He has general abdominal discomfort as well. no headache, fever , chills, nausea, vomiting. Exam Vital Signs Vital Sign - Last Date Time Temp Pulse Resp B/P Pulse Ox O2 Delivery O2 Flow Rate FiO2 03/08/17 10:52 36.7 82 19 102/62 100 Room Air Intake and Output 03/07/17 03/07/17 03/08/17 Cumulative From/Thru 15:00 23:00 07:00 03/06/17 12:03 - 03/08/17 06:03 Intake Total 1896 ml 2992 ml 8649 ml Output Total 2200 ml 2240 ml 4440 ml Balance -304 ml 752 ml 4209 ml Intake Oral 1896 ml 826 ml 3162 ml IV Total 0 ml 2166 ml 5487 ml Output Urine Total 2200 ml 2240 ml 4440 ml # Voids 6 # Bowel Movements 2 0 2 Exam General: No acute distress, well-developed, appropriately interactive, marfanoid in appearance HEENT: Normocephalic, atraumatic. External ears without defect. Pupils equal, round, and reactive to light and accommodation. Anicteric sclerae, moist conjunctivae, and no lid lag. Oropharynx free of erythema with moist mucosa. Neck: Supple with full range of motion.No lymphadenopathy or thyromegaly. Cardiovascular: Regular rate and rhythm with no murmurs, rubs, or gallops appreciated Pulmonary: Clear to auscultation bilaterally with no crackles, wheezes, or rhonchi. Normal respiratory effort with no use of accessory muscles. Abdomen: Bowel tones present. Soft, mildly tender in epigastric area, nondistended. Mild pectus excavatum Extremities: No clubbing, cyanosis, edema, or lymphadenopathy appreciated. Skin: Normal temperature, turgor, and texture; no rash, ulcers, or subcutaneous nodules appreciated. Neurological: Cranial nerves grossly intact. No known gait impairment. Psychiatric: Normal mood and affect. Alert and oriented to person, place, and time. Lab and Diagnostics AST 62, ALT 75, alkaline phosphatase increasing to 435 INR is 1.09 Result Diagram: 03/08/17 0725 03/08/17724 X-Rays, CTs and MRIs 02/18-MRI ABDOMEN WITH AND WITHOUT CONTRAST ([id number]) Solid organs: There are innumerable hepatic masses demonstrating hypointense T1 and hyperintense T2 signal. On Eovist enhanced images, hepatic lesions demonstrate hypointense signal compared to liver on arterial, portal venous and delayed (hepatocellular phase) images. A hospital sales representative lesion in the posterior segment of the right hepatic lobe (segment 5) measures 3.6 cm (series 4 image 37 ). A hospital sales representative lesion in the left hepatic lobe (segment 2) measures 3.0 cm. There is no intrahepatic biliary dilation. Portal vein is patent. Spleen is normal in size and enhancement. Gallbladder is normal. Biliary system is non dilated. Pancreas is normal in morphology. No adrenal nodules. The left kidney is absent. There is compensatory hypertrophy of the right kidney. No hydronephrosis. Nodes and vessels: No retroperitoneal or mesenteric adenopathy by size criteria. Aorta is normal in size. Inferior vena cava is left of the aorta below the renal vein. Bowel and peritoneum: Unenhanced bowel loops are normal in caliber. No free fluid. Bones and soft tissues: No ventral hernias. Bone marrow is normal in overall signal. IMPRESSION: 1. Innumerable hepatic masses highly suspicious for malignant neoplasm such as lymphoma or metastases. CT of the chest, abdomen and pelvis is recommended if clinically indicated. Percutaneous biopsy may be feasible under ultrasound guidance. 2. Absence of left kidney. There is compensatory hypertrophy of right kidney. 3. Left IVC. US ABDOMEN IMPRESSION: 1. Multiple hepatic masses are indeterminate. Recommend CT or MRI with and without contrast for further evaluation. 2. The left kidney is not identified. Please correlate with clinical history. X-RAY CHEST ONE VIEW, PORTABLE IMPRESSION: No acute cardiopulmonary abnormality Dictated by: David Greer M.D. on 03/06/2017 at 13:24 Date of Service: 03/07/17 0859 Additional Diagnostics DATE OF SERVICE: 03/07/2017 PROCEDURE: Esophagogastroduodenoscopy with biopsies. FINDINGS: 1. Esophagus: The squamocolumnar junction correlated with the top of the gastric folds. The GEJ was at 46 cm from the incisors. Right at the GE junction was evidence of irregular polypoid structures that prolapsed up and down into the distal esophagus. One of these areas was targeted for biopsy. 2. Stomach: The patient had diffuse gastric polyposis and a large well excavated mass that was quite polypoid in the mid body of the stomach. Multiple photographs were taken of the deep well excavated ulcer with surrounding polypoid appearing mucosa. This was targeted for biopsy. A separate biopsy was taken from more proximal gastric polyp. I was able to navigate the scope past the ulcerated mass effect into the antrum. The pyloric channel appeared to be wide open. 3. Duodenum: There were some scattered diminutive polypoid structures in the duodenum. One of these was sampled for histopathology as well. ENDOSCOPIC DIAGNOSES: 1. Ulcerated highly polypoid mass effect in the gastric body - biopsied. 2. Gastric and duodenal polyposis - biopsied. Assessment & Plan Curtis Malloy is a 27-year-old man without significant past medical history who presented to the [facility] emergency department today due to 3 episodes of hematemesis on Sunday. Patient also notes that he passed some "maki pie filling" appearing stools. The patient has not had any further episodes of hematemesis or melena or hematochezia since Sunday however he has noted that he is quite fatigued and becomes very tachycardic with any exertion. 03/07-EGD Findings of Ulcerated highly polypoid mass effect in the gastric body and Gastric and duodenal polyposis. Patient has family history of PeutzJeghers syndrome which is associated with intestinal polyposis, predisposition for gastric cancers, and hyperpigmented macules on the lips and oral mucosa which do not appear present in this patient. RECOMMENDATIONS: 1. Await histopathology from endoscopy. 2. Soft diet as tolerated 3. Continue PPI drip for now. 4. Oncology has consulted, we appreciate their care and expertise for this patient 5. If Helicobacter is found, it will certainly need to be eradicated with standard triple therapy. We will continue to follow GI Prophylaxis: Proton Pump Inhibitor VTE Prophylaxis: SCDs VTE Mechanical Devices: Intermittant Pneumatic CD Resuscitation Status: CPR: Attempt Resuscitation Attending Statement Patient seen and examined. Agree with assessment and plan as described by Dr Piña. Starting on soft diet this evening. I think he can be converted over to oral PPI tomorrow. copies to: Wild Green MD, Erika R DO Mar 08, 2017 14:00 Wild Green MD Mar 08, 2017 22:39
[2017-03-09] VITALS (8 sets, daily range): BP systolic 108–132; BP diastolic 48–88; PULSE 74–98; RESP 16–18; O2SAT 98–99
--- NOTE | 2017-03-09 02:16 | NUR ---
Pain Patient c/o generalized abdomen pain at HS, rating it about 8/10. Requesting Trazodone and Tylenol for comfort and to help sleep. Noted to be resting with eyes closed upon reassessment. No further c/o pain or discomfort. Will continue hourly rounding.
[2017-03-09] MEDS: Pantoprazole 8 mg/Hr Infusion IV SCH ×4 (04:14→16:21)
[2017-03-09] MEDS: 0.9% Sodium Chloride 1,000 ML IV SCH ×2 (05:38→16:21)
[2017-03-09 05:49] LABS: BASOPHILS % (AUTO) 0.3 % (0-3); EOSINOPHILS % (AUTO) 1.9 % (0-5); MONOCYTES % (AUTO) 11.1 % (4-12); Mean Corpuscular Hemoglobin 24.3 pg (27.0-35.0); Mean Corpuscular Volume 77.5 fL (81-100); NEUTROPHILS % (AUTO) 71.7 % (40-74); Platelet Count 348 bil/L (150-400)
--- NOTE | 2017-03-09 14:27 | PCM.PNMED ---
Subjective Date of Service Mar 09, 2017 Subjective Patient is feeling well today, he continues to have intermittent abdominal pain. He feels best when he is full but his pain is aggrivated when he starts to eat. He is having no nausea, vomiting, fever, or chills. Exam Vital Signs Vital Sign - Last Date Time Temp Pulse Resp B/P Pulse Ox O2 Delivery O2 Flow Rate FiO2 03/09/17 06:22 36.4 74 16 119/77 98 Room Air Intake and Output 03/08/17 03/08/17 03/09/17 Cumulative From/Thru 14:59 22:59 06:59 03/06/17 12:03 - 03/09/17 06:22 Intake Total 2758 ml 3251 ml 53058 ml Output Total 1200 ml 3650 ml 9290 ml Balance 1558 ml -399 ml 5368 ml Intake Oral 1400 ml 2000 ml 6562 ml IV Total 1358 ml 1251 ml 8096 ml Output Urine Total 1200 ml 3650 ml 9290 ml # Voids 6 # Bowel Movements 1 3 Exam General: No acute distress, well-developed, appropriately interactive, marfanoid in appearance HEENT: Normocephalic, atraumatic. External ears without defect. Pupils equal, round, and reactive to light and accommodation. Anicteric sclerae, moist conjunctivae, and no lid lag. Oropharynx free of erythema or lesions with moist mucosa. Neck: Supple with full range of motion.No lymphadenopathy or thyromegaly. Cardiovascular: Regular rate and rhythm with no murmurs, rubs, or gallops appreciated Pulmonary: Clear to auscultation bilaterally with no crackles, wheezes, or rhonchi. Normal respiratory effort with no use of accessory muscles. Abdomen: Bowel tones present. Soft, mildly tender in epigastric area, nondistended. Mild pectus excavatum Extremities: No clubbing, cyanosis, edema, or lymphadenopathy appreciated. Skin: Normal temperature, turgor, and texture; no rash, ulcers, or subcutaneous nodules appreciated. Neurological: Cranial nerves grossly intact. No known gait impairment. Psychiatric: Normal mood and affect. Alert and oriented to person, place, and time. Lab and Diagnostics Result Diagram: 03/09/17 0529 03/09/17 0529 X-Rays, CTs and MRIs 02/18-MRI ABDOMEN WITH AND WITHOUT CONTRAST ([id number]) Solid organs: There are innumerable hepatic masses demonstrating hypointense T1 and hyperintense T2 signal. On Eovist enhanced images, hepatic lesions demonstrate hypointense signal compared to liver on arterial, portal venous and delayed (hepatocellular phase) images. A sales representative supervisor lesion in the posterior segment of the right hepatic lobe (segment 5) measures 3.6 cm (series 4 image 37 ). A sales representative supervisor lesion in the left hepatic lobe (segment 2) measures 3.0 cm. There is no intrahepatic biliary dilation. Portal vein is patent. Spleen is normal in size and enhancement. Gallbladder is normal. Biliary system is non dilated. Pancreas is normal in morphology. No adrenal nodules. The left kidney is absent. There is compensatory hypertrophy of the right kidney. No hydronephrosis. Nodes and vessels: No retroperitoneal or mesenteric adenopathy by size criteria. Aorta is normal in size. Inferior vena cava is left of the aorta below the renal vein. Bowel and peritoneum: Unenhanced bowel loops are normal in caliber. No free fluid. Bones and soft tissues: No ventral hernias. Bone marrow is normal in overall signal. IMPRESSION: 1. Innumerable hepatic masses highly suspicious for malignant neoplasm such as lymphoma or metastases. CT of the chest, abdomen and pelvis is recommended if clinically indicated. Percutaneous biopsy may be feasible under ultrasound guidance. 2. Absence of left kidney. There is compensatory hypertrophy of right kidney. 3. Left IVC. US ABDOMEN IMPRESSION: 1. Multiple hepatic masses are indeterminate. Recommend CT or MRI with and without contrast for further evaluation. 2. The left kidney is not identified. Please correlate with clinical history. X-RAY CHEST ONE VIEW, PORTABLE IMPRESSION: No acute cardiopulmonary abnormality Dictated by: David Greer M.D. on 03/06/2017 at 13:24 Date of Service: 03/07/17 0859 Additional Diagnostics DATE OF SERVICE: 03/07/2017 PROCEDURE: Esophagogastroduodenoscopy with biopsies. FINDINGS: 1. Esophagus: The squamocolumnar junction correlated with the top of the gastric folds. The GEJ was at 46 cm from the incisors. Right at the GE junction was evidence of irregular polypoid structures that prolapsed up and down into the distal esophagus. One of these areas was targeted for biopsy. 2. Stomach: The patient had diffuse gastric polyposis and a large well excavated mass that was quite polypoid in the mid body of the stomach. Multiple photographs were taken of the deep well excavated ulcer with surrounding polypoid appearing mucosa. This was targeted for biopsy. A separate biopsy was taken from more proximal gastric polyp. I was able to navigate the scope past the ulcerated mass effect into the antrum. The pyloric channel appeared to be wide open. 3. Duodenum: There were some scattered diminutive polypoid structures in the duodenum. One of these was sampled for histopathology as well. ENDOSCOPIC DIAGNOSES: 1. Ulcerated highly polypoid mass effect in the gastric body - biopsied. 2. Gastric and duodenal polyposis - biopsied. Assessment & Plan Curtis Malloy is a 27-year-old man without significant past medical history who presented to the emergency department today due to 3 episodes of hematemesis on Sunday. Patient also notes that he passed some "maki pie filling" appearing stools. The patient has not had any further episodes of hematemesis or melena or hematochezia since Sunday however he has noted that he is quite fatigued and becomes very tachycardic with any exertion. 03/07-EGD Findings of Ulcerated highly polypoid mass effect in the gastric body and Gastric and duodenal polyposis. Patient has family history of PeutzJeghers syndrome which is associated with intestinal polyposis, predisposition for gastric cancers, and hyperpigmented macules on the lips and oral mucosa which do not appear present in this patient. RECOMMENDATIONS: 1. Await histopathology from endoscopy. 2. General diet as tolerated 3. Switch to oral PPI 40mg BID, discontinue drip 4. Oncology has consulted, we appreciate their care and expertise for this patient 5. Sucralfate TID We will continue to follow while in hospital, from a GI perspective he is okay to discharge home once patient is medically stable. GI Prophylaxis: Proton Pump Inhibitor VTE Prophylaxis: SCDs VTE Mechanical Devices: Intermittant Pneumatic CD Resuscitation Status: CPR: Attempt Resuscitation Attending Statement Patient seen and examined. Agree with assessment and plan as described by Dr Piña. copies to: Wild Green MD, Erika R DO Mar 09, 2017 09:04 Wild Green MD Mar 09, 2017 19:31
--- NOTE | 2017-03-09 15:49 | NUR ---
Social Work: Multi-Disciplinary Rounds Per rounds, oncology to follow pt. Possible malignancy. Pt will remain at least one more day, pending results from biopsy. MILAGROS Montgomery
[2017-03-09] MEDS: Pantoprazole 40 mg ER24 Tablet PO SCH (16:59)
[2017-03-09] MEDS: Sucralfate 1,000 mg Tablet PO SCH (16:59)
--- NOTE | 2017-03-09 18:14 | PCM.PNMED ---
Subjective Date of Service Mar 09, 2017 Subjective Patient tolerated advanced diet today. Denied any pain. Exam Vital Signs Vital Sign - Last Date Time Temp Pulse Resp B/P Pulse Ox O2 Delivery O2 Flow Rate FiO2 03/09/17 17:04 36.7 95 16 132/88 98 Room Air Intake and Output 03/08/17 03/08/17 03/09/17 Cumulative From/Thru 15:00 23:00 07:00 03/06/17 12:03 - 03/09/17 06:22 Intake Total 2758 ml 3251 ml 36978 ml Output Total 1200 ml 3650 ml 9290 ml Balance 1558 ml -399 ml 5368 ml Intake Oral 1400 ml 2000 ml 6562 ml IV Total 1358 ml 1251 ml 8096 ml Output Urine Total 1200 ml 3650 ml 9290 ml # Voids 6 # Bowel Movements 1 3 Exam General: No acute distress, well-developed, well-nourished, appropriately interactive. Marfanoid in appearance. HEENT: Normocephalic, atraumatic. External ears without defect. Pupils equal, round, and reactive to light and accommodation. Anicteric sclerae, moist conjunctivae, and no lid lag. Oropharynx free of erythema and cobble stoning with moist mucosa. Neck: Supple with full range of motion. No jugular venous distension. No lymphadenopathy or thyromegaly. Cardiovascular: Regular rate and rhythm with no murmurs, rubs, or gallops appreciated Pulmonary: Clear to auscultation bilaterally with no crackles, wheezes, or rhonchi. Normal respiratory effort with no use of accessory muscles. Abdomen: Bowel tones present. Soft, mild epigastric tenderness, nondistended. No hepatosplenomegaly or masses appreciated. Extremities: No clubbing, cyanosis. Bilateral nonpitting edema of feet and ankles. Skin: Normal temperature, turgor, and texture; no rash, ulcers, or subcutaneous nodules appreciated. Neurological: Cranial nerves grossly intact. Normal muscle strength, tone, and bulk. Reflexes, coordination, and sensory function within normal limits. No known gait impairment. Psychiatric: Alert and oriented to person, place, and time. Pleasant Lab and Diagnostics Result Diagram: 03/09/17 0529 03/09/17 0529 X-Rays, CTs and MRIs 02/18-MRI ABDOMEN WITH AND WITHOUT CONTRAST ([id number]) Solid organs: There are innumerable hepatic masses demonstrating hypointense T1 and hyperintense T2 signal. On Eovist enhanced images, hepatic lesions demonstrate hypointense signal compared to liver on arterial, portal venous and delayed (hepatocellular phase) images. A floor representative lesion in the posterior segment of the right hepatic lobe (segment 5) measures 3.6 cm (series 4 image 37 ). A floor representative lesion in the left hepatic lobe (segment 2) measures 3.0 cm. There is no intrahepatic biliary dilation. Portal vein is patent. Spleen is normal in size and enhancement. Gallbladder is normal. Biliary system is non dilated. Pancreas is normal in morphology. No adrenal nodules. The left kidney is absent. There is compensatory hypertrophy of the right kidney. No hydronephrosis. Nodes and vessels: No retroperitoneal or mesenteric adenopathy by size criteria. Aorta is normal in size. Inferior vena cava is left of the aorta below the renal vein. Bowel and peritoneum: Unenhanced bowel loops are normal in caliber. No free fluid. Bones and soft tissues: No ventral hernias. Bone marrow is normal in overall signal. IMPRESSION: 1. Innumerable hepatic masses highly suspicious for malignant neoplasm such as lymphoma or metastases. CT of the chest, abdomen and pelvis is recommended if clinically indicated. Percutaneous biopsy may be feasible under ultrasound guidance. 2. Absence of left kidney. There is compensatory hypertrophy of right kidney. 3. Left IVC. US ABDOMEN IMPRESSION: 1. Multiple hepatic masses are indeterminate. Recommend CT or MRI with and without contrast for further evaluation. 2. The left kidney is not identified. Please correlate with clinical history. X-RAY CHEST ONE VIEW, PORTABLE IMPRESSION: No acute cardiopulmonary abnormality Dictated by: David Greer M.D. on 03/06/2017 at 13:24 Date of Service: 03/07/17 0859 Additional Diagnostics DATE OF SERVICE: 03/07/2017 PROCEDURE: Esophagogastroduodenoscopy with biopsies. FINDINGS: 1. Esophagus: The squamocolumnar junction correlated with the top of the gastric folds. The GEJ was at 46 cm from the incisors. Right at the GE junction was evidence of irregular polypoid structures that prolapsed up and down into the distal esophagus. One of these areas was targeted for biopsy. 2. Stomach: The patient had diffuse gastric polyposis and a large well excavated mass that was quite polypoid in the mid body of the stomach. Multiple photographs were taken of the deep well excavated ulcer with surrounding polypoid appearing mucosa. This was targeted for biopsy. A separate biopsy was taken from more proximal gastric polyp. I was able to navigate the scope past the ulcerated mass effect into the antrum. The pyloric channel appeared to be wide open. 3. Duodenum: There were some scattered diminutive polypoid structures in the duodenum. One of these was sampled for histopathology as well. ENDOSCOPIC DIAGNOSES: 1. Ulcerated highly polypoid mass effect in the gastric body - biopsied. 2. Gastric and duodenal polyposis - biopsied. Assessment & Plan Curtis Malloy is a 27-year-old man without significant past medical history who presented to the [facility] emergency department today due to 3 episodes of hematemesis on Sunday. Patient also notes that he passed some "maki pie filling" appearing stools. The patient has not had any further episodes of hematemesis or melena or hematochezia since Sunday however he has noted that he is quite fatigued and becomes very tachycardic with any exertion. 03/07-EGD Findings of Ulcerated highly polypoid mass effect in the gastric body and Gastric and duodenal polyposis #Acute Upper gastrointestinal bleed with associated acute blood loss anemia, present on admission, active - 03/07-EGD Findings of Ulcerated highly polypoid mass effect in the gastric body and Gastric and duodenal polyposis. Last episode of melena or hematemesis was over 1 week ago. -Continue with IV fluids. Change Protonix to 40 mg by mouth twice a day -Hemoglobin has been stable since transfusion #Ulcerated highly polypoid mass effect in the gastric body and Gastric and duodenal polyposis found on EGD 03/07. Concern for Malignancy. EGD with above findings. 03/08 MRI Abd- Innumerable hepatic masses highly suspicious for malignant neoplasm such as lymphoma or metastases. family history polyps-mother, brother , grandmother. Gastroenterology Following- Dr. Wild Green. appreciate time and recommendations. - Await histopathology. - Full liquid diet can be commenced today. - Continue PPI drip for now. - If Helicobacter is found treat with standard triple therapy. - Likely malignancy, patient will need further staging. -Oncology consulted- appreciate time and recommendations. Recommend liver biopsy and will aid in locating the path results from the EGD. Will follow recommendations. Chronic Issues- #Absence of left kidney. Per MRI There is compensatory hypertrophy of right kidney. No hx of known Nephrectomy or injuries. 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 Renal function appears to be normal with Scr is 0.67 and GFR 151. - Will avoid nephrotoxic agents. #Marfinoid appearance -Recommend outpatient workup, likely related to single kidney and left IVC. Pain Evaluation: Adequate Pain Control GI Prophylaxis: Proton Pump Inhibitor VTE Prophylaxis: SCDs VTE Mechanical Devices: Intermittant Pneumatic CD Resuscitation Status: CPR: Attempt Resuscitation Nadeem Richards MD Mar 09, 2017 18:14
--- NOTE | 2017-03-09 18:18 | NUR ---
Activity/Heart Pt in bed or chair for most of day, stating he has back pain 8/10 at one point, Tylenol given. Pt is agreeable and declines offers for additional care, wanting his door closed and is independent in room. Pt was in junctional rhythm per telemetry and stat EKG done, but pt was SR at that time. Strips from telemetry when pt was in junctional rhythm obtained and are in chart. Pt was asymptomatic during this time. Per tele pt's heart rate was up into 150's with activity.
[2017-03-10] VITALS: BP 124/78; PULSE 91; RESP 15; O2SAT 97
[2017-03-10] MEDS: 0.9% Sodium Chloride 1,000 ML IV SCH ×2 (01:20→08:58)
--- NOTE | 2017-03-10 03:13 | NUR ---
Diet/Appetite/Pain Patient currently has a soft diet ordered, but signed a dietary waiver to eat a general diet a couple days ago. No complaints of N/V. Tolerates his current diet well. Patient states he is to be NPO at midnight in preparation for a liver biopsy later today. No orders/notes in chart stating biopsy will happen today, but patient made NPO @ midnight per his request, "just in case". Remains pleasant and cooperative with care. Received 650 mg of Acetaminophen for c/o neck and back pain. Results effective- resting with eyes closed upon reassessment.
[2017-03-10 05:50] VITALS: PULSE 91
[2017-03-10 06:02] VITALS: BP 148/62; PULSE 98; RESP 16; O2SAT 97
[2017-03-10 06:26] LABS: BASOPHILS % (AUTO) 0.3 % (0-3); EOSINOPHILS % (AUTO) 1.8 % (0-5); Mean Corpuscular Hemoglobin 24.1 pg (27.0-35.0); Mean Corpuscular Volume 77.5 fL (81-100); NEUTROPHILS % (AUTO) 74.8 % (40-74); Platelet Count 360 bil/L (150-400)
[2017-03-10 08:40] VITALS: BP 150/91; PULSE 81; RESP 18; O2SAT 98
[2017-03-10 08:46] VITALS: PULSE 123
[2017-03-10] MEDS: Pantoprazole 40 mg ER24 Tablet PO SCH (09:06)
[2017-03-10] MEDS: Sucralfate 1,000 mg Tablet PO SCH (09:06)
--- NOTE | 2017-03-10 11:01 | PROG NOTE ---
[address] [address] PROGRESS NOTE PATIENT: DREA PELAYO : 1990 MR#: [id number] ADMIT: 03/06/2017 JOB ID: [id number] DATE: 03/10/2017 SUBJECTIVE: The patient is ambulatory, doing well, seems to be tolerating nutrition. He is on oral Protonix and sucralfate. Histology is still pending. OBJECTIVE: Vital signs stable this morning. Temperature 36.6, pulse 81, breathing 18, blood pressure 150/91, 98% on room air. The patient was in no distress. Alert, oriented, appropriate, cooperative, conversational. LABORATORIES: Hemoglobin 9.5, hematocrit 30.6, white count 10.7, platelets 360. Hepatitis serology negative. ASSESSMENT AND RECOMMENDATIONS: A 27-year-old male with an ulcerated, excavated gastric mass affect in the context of gastric polyposis. This would appear to possibly be a metastatic process based on subsequent abdominal imaging including the most recent hepatic protocol MR. From a GI perspective at present, the patient appears stable to be allowed discharge home and continue outpatient oncology evaluation and therapy this week. I see that Dr. Suazo is interested in pursuing a liver biopsy and I see no reason why this could not be accomplished urgently as an outpatient this week at his discretion after the pathology is (hopefully) finalized on Sunday. I will sign off for now from an inpatient perspective. COMMENT: This is a no charge physician visit today. Today is the Sabbath. Please do not submit a physician charge for this particular note.
--- NOTE | 2017-03-10 11:42 | PCM.PNMED ---
Subjective Date of Service Mar 10, 2017 Subjective Pt tolerated diet well. No abd pain. No fevers. No melena. Exam Vital Signs Vital Sign - Last Date Time Temp Pulse Resp B/P Pulse Ox O2 Delivery O2 Flow Rate FiO2 03/10/17 08:46 123 03/10/17 08:40 36.6 18 150/91 98 Room Air Intake and Output 03/09/17 03/09/17 03/10/17 Cumulative From/Thru 15:00 23:00 07:00 03/06/17 12:03 - 03/10/17 06:02 Intake Total 1120 ml 2394 ml 45711 ml Output Total 1670 ml 3800 ml 64314 ml Balance -550 ml -1406 ml 3412 ml Intake Oral 1120 ml 1272 ml 8954 ml IV Total 1122 ml 9218 ml Output Urine Total 1670 ml 3800 ml 76709 ml # Voids 6 # Bowel Movements 0 3 Exam General: No acute distress, well-developed, well-nourished, appropriately interactive. Marfanoid in appearance. HEENT: Normocephalic, atraumatic. External ears without defect. Pupils equal, round, and reactive to light and accommodation. Anicteric sclerae, moist conjunctivae, and no lid lag. Oropharynx free of erythema and cobble stoning with moist mucosa. Neck: Supple with full range of motion. No jugular venous distension. No lymphadenopathy or thyromegaly. Cardiovascular: Regular rate and rhythm with no murmurs, rubs, or gallops appreciated Pulmonary: Clear to auscultation bilaterally with no crackles, wheezes, or rhonchi. Normal respiratory effort with no use of accessory muscles. Abdomen: Bowel tones present. Soft, mild epigastric tenderness, nondistended. No hepatosplenomegaly or masses appreciated. Extremities: No clubbing, cyanosis. Bilateral nonpitting edema of feet and ankles. Skin: Normal temperature, turgor, and texture; no rash, ulcers, or subcutaneous nodules appreciated. Neurological: Cranial nerves grossly intact. Normal muscle strength, tone, and bulk. Reflexes, coordination, and sensory function within normal limits. No known gait impairment. Psychiatric: Alert and oriented to person, place, and time. Pleasant IVs and Medications Medications Reviewed: Medications were reviewed in detail Lab and Diagnostics Result Diagram: 03/10/17 0530 03/09/17 8184 X-Rays, CTs and MRIs 02/18-MRI ABDOMEN WITH AND WITHOUT CONTRAST ([id number]) Solid organs: There are innumerable hepatic masses demonstrating hypointense T1 and hyperintense T2 signal. On Eovist enhanced images, hepatic lesions demonstrate hypointense signal compared to liver on arterial, portal venous and delayed (hepatocellular phase) images. A sales representative rural power lesion in the posterior segment of the right hepatic lobe (segment 5) measures 3.6 cm (series 4 image 37 ). A sales representative rural power lesion in the left hepatic lobe (segment 2) measures 3.0 cm. There is no intrahepatic biliary dilation. Portal vein is patent. Spleen is normal in size and enhancement. Gallbladder is normal. Biliary system is non dilated. Pancreas is normal in morphology. No adrenal nodules. The left kidney is absent. There is compensatory hypertrophy of the right kidney. No hydronephrosis. Nodes and vessels: No retroperitoneal or mesenteric adenopathy by size criteria. Aorta is normal in size. Inferior vena cava is left of the aorta below the renal vein. Bowel and peritoneum: Unenhanced bowel loops are normal in caliber. No free fluid. Bones and soft tissues: No ventral hernias. Bone marrow is normal in overall signal. IMPRESSION: 1. Innumerable hepatic masses highly suspicious for malignant neoplasm such as lymphoma or metastases. CT of the chest, abdomen and pelvis is recommended if clinically indicated. Percutaneous biopsy may be feasible under ultrasound guidance. 2. Absence of left kidney. There is compensatory hypertrophy of right kidney. 3. Left IVC. US ABDOMEN IMPRESSION: 1. Multiple hepatic masses are indeterminate. Recommend CT or MRI with and without contrast for further evaluation. 2. The left kidney is not identified. Please correlate with clinical history. X-RAY CHEST ONE VIEW, PORTABLE IMPRESSION: No acute cardiopulmonary abnormality Dictated by: David Greer M.D. on 03/06/2017 at 13:24 Date of Service: 03/07/17 0859 Additional Diagnostics DATE OF SERVICE: 03/07/2017 PROCEDURE: Esophagogastroduodenoscopy with biopsies. FINDINGS: 1. Esophagus: The squamocolumnar junction correlated with the top of the gastric folds. The GEJ was at 46 cm from the incisors. Right at the GE junction was evidence of irregular polypoid structures that prolapsed up and down into the distal esophagus. One of these areas was targeted for biopsy. 2. Stomach: The patient had diffuse gastric polyposis and a large well excavated mass that was quite polypoid in the mid body of the stomach. Multiple photographs were taken of the deep well excavated ulcer with surrounding polypoid appearing mucosa. This was targeted for biopsy. A separate biopsy was taken from more proximal gastric polyp. I was able to navigate the scope past the ulcerated mass effect into the antrum. The pyloric channel appeared to be wide open. 3. Duodenum: There were some scattered diminutive polypoid structures in the duodenum. One of these was sampled for histopathology as well. ENDOSCOPIC DIAGNOSES: 1. Ulcerated highly polypoid mass effect in the gastric body - biopsied. 2. Gastric and duodenal polyposis - biopsied. Assessment & Plan Curtis Malloy is a 27-year-old man without significant past medical history who presented to the [facility] emergency department today due to 3 episodes of hematemesis on Sunday. Patient also notes that he passed some "maki pie filling" appearing stools. The patient has not had any further episodes of hematemesis or melena or hematochezia since Sunday however he has noted that he is quite fatigued and becomes very tachycardic with any exertion. 03/07-EGD Findings of Ulcerated highly polypoid mass effect in the gastric body and Gastric and duodenal polyposis #Acute Upper gastrointestinal bleed with associated acute blood loss anemia, present on admission, active - 03/07-EGD Findings of Ulcerated highly polypoid mass effect in the gastric body and Gastric and duodenal polyposis. Last episode of melena or hematemesis was over 1 week ago. -Continue with IV fluids. Change Protonix to 40 mg by mouth twice a day -Hemoglobin has been stable since transfusion #Ulcerated highly polypoid mass effect in the gastric body and Gastric and duodenal polyposis found on EGD 03/07. Concern for Malignancy. EGD with above findings. 03/08 MRI Abd- Innumerable hepatic masses highly suspicious for malignant neoplasm such as lymphoma or metastases. family history polyps-mother, brother , grandmother. Gastroenterology Following- Dr. Wild Green. appreciate time and recommendations. - Await histopathology. - Full liquid diet can be commenced today. - Continue PPI drip for now. - If Helicobacter is found treat with standard triple therapy. - Likely malignancy, patient will need further staging. -Oncology consulted Dr. Suazo- appreciate time and recommendations. Recommend liver biopsy to confirm EGD biopsy path results oncae back. Pt wishes to do this as outpatient. He will follow up with Dr. Suazo's office this week to arrange the Liver Biopsy once initial path results from EGD are back. Chronic Issues- #Absence of left kidney. Per MRI There is compensatory hypertrophy of right kidney. No hx of known Nephrectomy or injuries. 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 Renal function appears to be normal with Scr is 0.67 and GFR 151. - Will avoid nephrotoxic agents. #Marfinoid appearance -Recommend outpatient workup, likely related to single kidney and left IVC. Dispo- discharge to . - Dr. Suazo-Oncology Consulted- Recommend liver biopsy to confirm EGD biopsy path results oncae back. Pt wishes to do this as outpatient. He will follow up with Dr. Suazo's office this week to arrange the Liver Biopsy once initial path results from EGD are back likely Sunday. - Take Protonix twice daily for ulcer. Pain Evaluation: Adequate Pain Control GI Prophylaxis: Proton Pump Inhibitor VTE Prophylaxis: SCDs VTE Mechanical Devices: Intermittant Pneumatic CD Resuscitation Status: CPR: Attempt Resuscitation Nadeem Richards MD Mar 10, 2017 11:42
--- NOTE | 2017-03-10 11:45 | PCM.DIMED ---
Discharge Instructions Date of Service Mar 10, 2017 Dates of Hospitalization Mar 06, 2017 at 17:59 Discharge Diagnosis Discharge Diagnosis #Acute Upper gastrointestinal bleed with associated acute blood loss anemia, present on admission, active #Ulcerated highly polypoid mass effect in the gastric body and Gastric and duodenal polyposis found on EGD 03/07. # Innumerable hepatic masses highly suspicious for malignant neoplasm such as lymphoma or metastases. #Absence of left kidney, likely congenital #Marfinoid appearance Medication Instructions Additional med instructions - Take Protonix twice daily for ulcer. Diet Discharge Diet: No restrictions, Other (GI Soft ) Activity Discharge Activity: No restrictions Call your provider Call your provider for: Bleeding, Vomitting Patient Instructions Patient Instructions - Dr. Suazo-Oncology Consulted- Recommend liver biopsy to confirm EGD biopsy path results oncae back. Pt wishes to do this as outpatient. He will follow up with Dr. Suazo's office this week to arrange the Liver Biopsy once initial path results from EGD are back likely Sunday. Provider: Wilmar Suazo MD Follow-up in: 1 week Nadeem Richards MD Mar 10, 2017 11:45
[2017-03-10] MEDS ORDERED: PANT40TA3 PO (11:46)
[2017-03-10] MEDS ORDERED: SUCR1TAB30 PO (11:46)
[2017-03-10] MEDS ORDERED: Al Hydrox/Mg Hydrox/Simeth PO (11:46)
--- NOTE | 2017-03-10 11:49 | NUR ---
Social Work- Readiness for Discharge/Multidisciplinary Rounds Data: EMR reviewed. Pt discussed in rounds, pt is likely to discharge today if pt is able to obtain his biopsy as an outpt. SW placed T/C to pt's father to confirm discharge plan and safe housing. Pt's father was seen in pt's room and [employer] spoke with him at bedside. Pt and father confirmed that pt is able to stay with his father at discharge and father will provide transportation home. No discharge concerns identified. SW will continue to follow. Assessment: Pt who is independent at baseline. Plan: Pt will stay with his father at discharge, father to transport via POV. No discharge needs identified. SW will continue to follow. MILAGROS Jiménez
--- NOTE | 2017-03-10 11:49 | PCM.DC.MED ---
Discharge Summary Date of Service Mar 10, 2017 Dates of Hospitalization Date of Hospital Admission Mar 06, 2017 at 17:59 Date of Discharge: Mar 10, 2017 Providers: Admitting Physician: Ankita Mariano DO Primary Care Physician: Griselda Attending Physician: Linh Richards MD Diagnosis at Time of Discharge Diagnosis at Time of Discharge #Acute Upper gastrointestinal bleed with associated acute blood loss anemia, present on admission, active #Ulcerated highly polypoid mass effect in the gastric body and Gastric and duodenal polyposis found on EGD 03/07. # Innumerable hepatic masses highly suspicious for malignant neoplasm such as lymphoma or metastases. #Absence of left kidney, likely congenital #Marfinoid appearance Consultations Dr. Suazo-Oncology GI- Dr. Green Procedures XRay, CTs & MRIs 02/18-MRI ABDOMEN WITH AND WITHOUT CONTRAST ([id number]) Solid organs: There are innumerable hepatic masses demonstrating hypointense T1 and hyperintense T2 signal. On Eovist enhanced images, hepatic lesions demonstrate hypointense signal compared to liver on arterial, portal venous and delayed (hepatocellular phase) images. A abrasives sales representative lesion in the posterior segment of the right hepatic lobe (segment 5) measures 3.6 cm (series 4 image 37 ). A abrasives sales representative lesion in the left hepatic lobe (segment 2) measures 3.0 cm. There is no intrahepatic biliary dilation. Portal vein is patent. Spleen is normal in size and enhancement. Gallbladder is normal. Biliary system is non dilated. Pancreas is normal in morphology. No adrenal nodules. The left kidney is absent. There is compensatory hypertrophy of the right kidney. No hydronephrosis. Nodes and vessels: No retroperitoneal or mesenteric adenopathy by size criteria. Aorta is normal in size. Inferior vena cava is left of the aorta below the renal vein. Bowel and peritoneum: Unenhanced bowel loops are normal in caliber. No free fluid. Bones and soft tissues: No ventral hernias. Bone marrow is normal in overall signal. IMPRESSION: 1. Innumerable hepatic masses highly suspicious for malignant neoplasm such as lymphoma or metastases. CT of the chest, abdomen and pelvis is recommended if clinically indicated. Percutaneous biopsy may be feasible under ultrasound guidance. 2. Absence of left kidney. There is compensatory hypertrophy of right kidney. 3. Left IVC. US ABDOMEN IMPRESSION: 1. Multiple hepatic masses are indeterminate. Recommend CT or MRI with and without contrast for further evaluation. 2. The left kidney is not identified. Please correlate with clinical history. X-RAY CHEST ONE VIEW, PORTABLE IMPRESSION: No acute cardiopulmonary abnormality Dictated by: David Greer M.D. on 03/06/2017 at 13:24 Date of Service: 03/07/17 0859 Other Diagnostics DATE OF SERVICE: 03/07/2017 PROCEDURE: Esophagogastroduodenoscopy with biopsies. FINDINGS: 1. Esophagus: The squamocolumnar junction correlated with the top of the gastric folds. The GEJ was at 46 cm from the incisors. Right at the GE junction was evidence of irregular polypoid structures that prolapsed up and down into the distal esophagus. One of these areas was targeted for biopsy. 2. Stomach: The patient had diffuse gastric polyposis and a large well excavated mass that was quite polypoid in the mid body of the stomach. Multiple photographs were taken of the deep well excavated ulcer with surrounding polypoid appearing mucosa. This was targeted for biopsy. A separate biopsy was taken from more proximal gastric polyp. I was able to navigate the scope past the ulcerated mass effect into the antrum. The pyloric channel appeared to be wide open. 3. Duodenum: There were some scattered diminutive polypoid structures in the duodenum. One of these was sampled for histopathology as well. ENDOSCOPIC DIAGNOSES: 1. Ulcerated highly polypoid mass effect in the gastric body - biopsied. 2. Gastric and duodenal polyposis - biopsied. Brief History Per admission HPI below Curtis Malloy is a 27-year-old man without significant past medical history who presented to the [facility] emergency department today due to 3 episodes of hematemesis on Sunday. Patient also notes that he passed some "maki pie filling" appearing stools. The patient has not had any further episodes of hematemesis or melena or hematochezia since Sunday however he has noted that he is quite fatigued and becomes very tachycardic with any exertion. Patient also noticed lower extremity edema for the last 2 days. Patient states that his hematemesis was abrupt in onset and was not preceded by any retching or other emesis. He has previously had a gastric ulcer which was attributed to stress. The patient apparently was seen at urgent care for this complaint and was discharged home with some antacids iron and muscle relaxants. The patient has also noted some epigastric pain. The patient does admit to taking some ibuprofen recently however he states that he took about 600 mg maybe every third day the last several weeks due to back pain. Patient does note that he feels very fatigued and previously in this situation did receive blood and felt significant better. She denies any fevers, chills, nausea. In the emergency department his vital signs were notable for a heart rate of 119 and a blood pressure 116/72. His stool was guaiac positive but brown in appearance per ER documentation. A blood transfusion is pending at this time. Dr. Green of gastroenterology was consulted and has agreed to see the patient. Patient will likely undergo EGD tomorrow morning. Hospital Course Curtis Malloy is a 27-year-old man without significant past medical history who presented to the [facility] emergency department today due to 3 episodes of hematemesis on Sunday. Patient also notes that he passed some "maki pie filling" appearing stools. The patient has not had any further episodes of hematemesis or melena or hematochezia since Sunday however he has noted that he is quite fatigued and becomes very tachycardic with any exertion. 03/07-EGD Findings of Ulcerated highly polypoid mass effect in the gastric body and Gastric and duodenal polyposis #Acute Upper gastrointestinal bleed with associated acute blood loss anemia, present on admission, active - 03/07-EGD Findings of Ulcerated highly polypoid mass effect in the gastric body and Gastric and duodenal polyposis. Last episode of melena or hematemesis was over 1 week ago. -Continue with IV fluids. Change Protonix to 40 mg by mouth twice a day -Hemoglobin has been stable since transfusion #Ulcerated highly polypoid mass effect in the gastric body and Gastric and duodenal polyposis found on EGD 03/07. Concern for Malignancy. EGD with above findings. 03/08 MRI Abd- Innumerable hepatic masses highly suspicious for malignant neoplasm such as lymphoma or metastases. family history polyps-mother, brother , grandmother. Gastroenterology Following- Dr. Wild Green. appreciate time and recommendations. - Await histopathology. - Full liquid diet can be commenced today. - Continue PPI drip for now. - If Helicobacter is found treat with standard triple therapy. - Likely malignancy, patient will need further staging. -Oncology consulted Dr. Suazo- appreciate time and recommendations. Recommend liver biopsy to confirm EGD biopsy path results oncae back. Pt wishes to do this as outpatient. He will follow up with Dr. Suazo's office this week to arrange the Liver Biopsy once initial path results from EGD are back. Chronic Issues- #Absence of left kidney. Per MRI There is compensatory hypertrophy of right kidney. No hx of known Nephrectomy or injuries. 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 Renal function appears to be normal with Scr is 0.67 and GFR 151. - Will avoid nephrotoxic agents. #Marfinoid appearance -Recommend outpatient workup, likely related to single kidney and left IVC. Dispo- discharge to . - Dr. Suazo-Oncology Consulted- Recommend liver biopsy to confirm EGD biopsy path results oncae back. Pt wishes to do this as outpatient. He will follow up with Dr. Suazo's office this week to arrange the Liver Biopsy once initial path results from EGD are back likely Sunday. - Take Protonix twice daily for ulcer. Exam Vital Signs (Last) Date Time Temp Pulse Resp B/P Pulse Ox O2 Delivery O2 Flow Rate FiO2 03/10/17 08:46 123 03/10/17 08:40 36.6 18 150/91 98 Room Air Test 03/06/17 13:20 03/06/17 14:40 03/09/17 05:29 03/10/17 05:30 Prothrombin Time 11.7sec (8.1-12.5) Prothromb Time International Ratio 1.09ratio Hepatitis A IgM Antibody Negative (Negative) Hepatitis B Surface Antigen Negative (Negative) Hepatitis B Core IgM Antibody Negative (Negative) Hepatitis C Antibody <0.1s/co ratio (0.0-0.9) Hepatitis C Comment Comment (.) Sodium Level 138mEq/L (134-144) Potassium Level 4.6mEq/L (3.5-5.2) Chloride Level 100mEq/L (97-108) Carbon Dioxide Level 25mmol/L (18-29) Blood Urea Nitrogen 9mg/dL (6-20) Creatinine 0.73mg/dL (0.76-1.27) Estimat Glomerular Filtration Rate 137mL/min (>59) Glucose Level 107mg/dL (60-99) Calcium Level 9.1mg/dL (8.5-10.1) Total Bilirubin 0.4mg/dL (0.0-1.2) Aspartate Amino Transf (AST/SGOT) 88U/L (0-50) Alanine Aminotransferase (ALT/SGPT) 85U/L (0-44) Alkaline Phosphatase 452U/L (25-150) Total Protein 5.9g/dL (6.4-8.4) Albumin 3.1g/dL (3.4-5.0) White Blood Count 10.7th/mm3 (3.8-10.1) Red Blood Count 3.95mil/mm3 (4.40-5.80) Hemoglobin 9.5g/dL (13.8-17.2) Hematocrit 30.6% (41.0-50.0) Mean Corpuscular Volume 77.5fL (81-100) Mean Corpuscular Hemoglobin 24.1pg (27.0-35.0) Mean Corpuscular Hemoglobin Concent 31.0% (32.0-37.0) Red Cell Distribution Width 15.8% (12.3-15.4) Platelet Count 360bil/L (150-400) Neutrophils (%) (Auto) 74.8% (40-74) Lymphocytes (%) (Auto) 13.7% (14-46) Monocytes (%) (Auto) 9.0% (4-12) Eosinophils (%) (Auto) 1.8% (0-5) Basophils (%) (Auto) 0.3% (0-3) Discharge Medications Discharge Medications Pantoprazole DR (Pantoprazole DR) 40 Mg Tablet.dr 40 MG PO BIDAC Prescribed by: LINH RICHARDS MD Sucralfate (Carafate) 1 Gm Tablet 1,000 MG PO TIDAC Prescribed by: LINH RICHARDS MD As needed ([Al Hydrox/Mg Hydrox/Simeth]) 30 ML SUSP 30 ML PO Q6H PRN PRN For Dyspepsia or Heartburn Prescribed by: LINH RICHARDS MD Additional med instructions - Take Protonix twice daily for ulcer. Followup Plan Disposition: Dispo- discharge to . - Dr. Suazo-Oncology Consulted- Recommend liver biopsy to confirm EGD biopsy path results oncae back. Pt wishes to do this as outpatient. He will follow up with Dr. Suazo's office this week to arrange the Liver Biopsy once initial path results from EGD are back likely Sunday. - Take Protonix twice daily for ulcer. Discharge Diet: No restrictions, Other (GI Soft ) Discharge Activity: No restrictions Patient Instructions - Dr. Suazo-Oncology Consulted- Recommend liver biopsy to confirm EGD biopsy path results oncae back. Pt wishes to do this as outpatient. He will follow up with Dr. Suazo's office this week to arrange the Liver Biopsy once initial path results from EGD are back likely Sunday. Provider: Wilmar Suazo MD Follow-up in: 1 week Linh Richards MD Mar 10, 2017 11:49
--- NOTE | 2017-03-10 15:43 | NUR ---
Discharge Patient discharged home. IV DC'd and intact. Discharge instructions given with no questions. RX sent with patient. Patient educated on new medications and to follow up with oncology this week. Patient gathered all belongings. SECOND FLOOR OPERATOR escorted patient out via walking.
--- NOTE | 2017-03-13 15:14 | PATH ---
SURGICAL PATHOLOGY Attending Physician:Joan Weinstein CASE STATUS: Signed Out PATIENT NAME: DREA PELAYO PID: [id number] : 1990 DATE COLLECTED:03/07/2017 00:00 SPECIMEN: 1: Duodenum, Biopsy 2: Gastric, Biopsy 3: Stomach, Polyp, Biopsy 4: Esophagus, Biopsy CLINICAL HISTORY: 1). DUODENAL POLYP BIOPSY 2). GASTRIC MASS BIOPSY 3). GASTRIC POLYP BIOPSY 4). GASTRO-ESOPHAGEAL JUNCTION BIOPSY FINAL DIAGNOSIS: 1. Duodenum, Polyp, Biopsy: Polypoid duodenal mucosa with no significant diagnostic abnormality. Negative for intraepithelial lymphocytosis or villous blunting. Negative for dysplasia and malignancy. 2. Stomach, Mass, Biopsy: Gastric hyperplastic polyp. See comment. Negative for Helicobacter organisms. Negative for intestinal metaplasia. Negative for dysplasia and malignancy. 3. Stomach, Polyp, Biopsy: Gastric hyperplastic polyp. See comment. Negative for Helicobacter organisms. Negative for intestinal metaplasia. Negative for dysplasia and malignancy. 4. Gastroesophageal Junction, Biopsy: Hyperplastic polyp. See comment. Negative for intestinal metaplasia. Negative for dysplasia and malignancy. ICD10: R11 NOTE: The endoscopic appearance of multiple polyps and possible mass are noted as well as the family history of Peutz-Jeghers syndrome. The current biopsies show predominantly hyperplastic polyps without hamartomatous features; however, typical arborizing smooth muscle in polyps is not always seen in the gastric polyps in patients with Peutz-Jeghers. Overall the features are not sufficient for a diagnosis of Peutz-Jeghers syndrome by major or minor criterion. Correlation with other stigmata of Peutz-Jeghers syndrome is recommended. As part of routine air quality technician, Dr. Luis also reviewed part 2 and agrees with the diagnosis. GROSS DESCRIPTION: Received are four formalin-filled containers, each labeled with the patient' s name. 1. Received in formalin, labeled with the patient' s name and "duodenal polyp", is one fragment of sandoval, soft tissue measuring 0.2 x 0.2 x 0.2 cm. The fragment is totally submitted in cassette 1A. 2. Received in formalin, labeled with the patient' s name and "gastric mass BX", are multiple fragments of sandoval, soft tissue ranging in size from less than 0.1 cm by less than 0.1 cm by less than 0.1 cm to 0.2 x 0.2 x 0.1 cm. All fragments are totally submitted in cassette 2A. 3. Received in formalin, labeled with the patient' s name and "gastric polyp BX", are two fragments of sandoval, soft tissue ranging in size from 0.1 x 0.1 x 0.1 cm to 0.2 x 0.1 x 0.1 cm. All fragments are totally submitted in cassette 3A. 4. Received in formalin, labeled with the patient' s name and "GE junction BX", is one fragment of sandoval, soft tissue measuring 0.3 x 0.2 x 0.2 cm. The fragment is totally submitted in cassette 4A. ([id number]) MICRO DESCRIPTION: See diagnosis. ICD-9 CODES: CPT CODES: 1: 99620 2: 60736 3: 04877 4: 41099 Electronically Signed Out Alisia Thibodeaux MD [facility] Pathology [facility] [address], [place] [address] Technical component performed at [employer], [facility] [address], [place], [address]
[2017-03-15] MEDS ORDERED: ACET-2605 PO (15:54)
== END 2017-03-10 12:50 | disposition home or self-care (01) | DRG 378 ==
LOC: SED 11:57 → OSC 17:59
PROVIDERS: ADMIT Internal Medicine; ATTEND Internal Medicine
PROC: 0DB98ZX Excision of Duodenum, Via Natural or Artificial Opening Endoscopic, Diagnostic (ICD-10-PCS; 2017-03-07)
PROC: 0DB68ZX Excision of Stomach, Via Natural or Artificial Opening Endoscopic, Diagnostic (ICD-10-PCS; 2017-03-07)
PROC: 0DB38ZX Excision of Lower Esophagus, Via Natural or Artificial Opening Endoscopic, Diagnostic (ICD-10-PCS; principal; 2017-03-07 14:30)
DX: K92.2 Gastrointestinal hemorrhage, unspecified (principal); C22.9 Malignant neoplasm of liver, not specified as primary or secondary; Q87.43 Marfan syndrome with skeletal manifestation; K22.8 Other specified diseases of esophagus; K31.7 Polyp of stomach and duodenum; Z90.5 Acquired absence of kidney

== ENCOUNTER 2017-03-23 01:32 | Day surgery (SDC) | payer OTHER ==
[~2017-03-23 01:32] MED LIST: ACET-2605 PO; Al Hydrox/Mg Hydrox/Simeth PO; IRON PO; MUSCLE RELAXER PO; OXYC5CAP4 PO; PANT40TA3 PO; SUCR1TAB30 PO
[2017-03-23] MEDS ORDERED: HYDROmorphone 1 mg/mL Inj ONE (01:33)
[2017-03-23] MEDS ORDERED: Propofol 10,000 mCg/mL 20 mL Inj ONE (01:33)
[2017-03-23 10:47] VITALS: BP 109/74; PULSE 108; RESP 12; O2SAT 98
[2017-03-23 11:05] VITALS: O2SAT 100
[2017-03-23] MEDS ORDERED: Lactated Ringer's 500 ML IV PRN (12:23)
[2017-03-23] MEDS ORDERED: Lactated Ringer's 1,000 ML IV SCH (12:23)
[2017-03-23] MEDS ORDERED: HYDROmorphone 1 mg/mL Inj IVPUSH PRN (12:25)
[2017-03-23] MEDS ORDERED: fentaNYL-PF 50 mCg/mL 2 mL Inj IVPUSH PRN (12:25)
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
[2017-03-23 13:30] VITALS: BP 128/85; PULSE 99; RESP 16; O2SAT 100
--- NOTE | 2017-03-23 13:30 | DRSVH ---
PROCEDURE: US-GUIDED LIVER BIOPSY ([id number]) INDICATIONS: LIVER MASS TECHNIQUE: The indications, alternatives, benefits, risks, and complications of the procedure were e xplained to the patient. Written informed consent was obtained and placed in the chart. Continuous EKG and hemodynamic monitoring was started by trained personnel. Real-time sonography was utilized to choose the site for percutaneous hepatic biopsy. The skin was p repped and draped in the usual sterile fashion. 1% lidocaine was infiltrated down to the hepatic cap nasra. A coaxial needle was then advanced into the liver under direct sonographic visualization. A b iopsy apparatus was then utilized, and core biopsies were obtained. The needle was then withdrawn; a bandage and overlying weight were applied to the biopsy site. The attending physician was present, and personally performed the procedure. COMPARISON: [facility], US, US ABDOMEN, 03/07/2017, 9:38. FINDINGS: Biopsy site(s): Predominant left hepatic lobe mass. Needle: Pressino biopsy needle set. Number of passes: 3 Medications: 1% lidocaine for local anaesthesia. Complications: None. IMPRESSION: Successful ultrasound-guided liver biopsy, with pathology results pending. Dictated by: Jak JOHNSON Interpreted: Louisa Jones MD on 03/23/2017 at 13:27 Transcribed by: REVA on 03/23/2017 at 13:29 Approved by: Louisa Jones MD, PhD on 03/23/2017 at 13:49
[2017-03-23 13:45] VITALS: BP 124/80; PULSE 105; RESP 16; O2SAT 100
[2017-03-23 14:00] VITALS: BP 125/83; PULSE 94; RESP 16; O2SAT 100
[2017-03-23 14:02] VITALS: BP 124/80; PULSE 94; O2SAT 100
[2017-03-23] MEDS ORDERED: PANT40TA3 PO (14:29)
[2017-03-23] MEDS ORDERED: SUCR1TAB PO (14:29)
[2017-03-23] MEDS ORDERED: ENOX40DI8 SUBQ (14:31)
--- NOTE | 2017-03-23 15:09 | NUR ---
Liver Biopsy recovery Pt VSS and WNL on RA, puncture site soft non tender. orthostatics negative for significant changes, HCT didn't show a significant changes per MD. Pt and family stated verbal understanding of discharge instructions regarding use of home medications and signs of worsening condition. Pt left with personal belongings, discharge paperwork, IV dc'd intact at approximately 1510.
--- NOTE | 2017-03-27 15:42 | PATH ---
SURGICAL PATHOLOGY Attending Physician:Wilmar Suazo M.D. CASE STATUS: Signed Out PATIENT NAME: DREA PELAYO PID: [id number] : 1990 DATE COLLECTED:03/23/2017 20:50 SPECIMEN: Liver, Needle Biopsy CLINICAL HISTORY: PEUTZ-JEGHERS SYNDROME, LIVER MASSES 1). FOCAL MASS LEFT LIVER FINAL DIAGNOSIS: 1.LIVER, LEFT MASS, CORE NEEDLE BIOPSIES: POORLY-DIFFERENTIATED ADENOCARCINOMA, SEE COMMENT. [id number] NOTE: Poorly-differentiated adenocarcinoma involves 5 of 5 core biopsy fragments. Minimal residual groups of hepatocytes are present in the background tissue. Immunohistochemical stains were performed and show a nonspecific immunophenotype with uniform cytokeratin 7 expression and rare cells expressing cytokeratin 20. CDX-2, villin, TTF-1, ALEXANDRE-3, and Hep-Par1 are negative. The differential diagnosis includes gastrointestinal malignancy, favor upper gastrointestinal/pancreaticobiliary. A lung adenocarcinoma with an enteric phenotype cannot be completely excluded. A SATB2 immunohistochemical stain is pending, and the results will be reported as an addendum. Correlation with radiographic findings is the best way to determine the primary site of malignancy in this patient. Dr. Thibodeaux discussed preliminary findings with Dr. Suazo on 03/27/17. As part of a routine quality control microbiologist, Dr. Marilu Montesinos and Dr. Josue Luis have also reviewed this case and agree with the diagnosis of adenocarcinoma. GROSS DESCRIPTION: The specimen is received in one formalin filled container labeled with the patient's name, sublabeled "focal mass L. liver" and consists of 3 cylindrical shaped portions of tissue which aggregate to 0.9 x 0.2 x 0.1 CM. The specimen is entirely submitted in one cassette. 03/23/2017DC MICRO DESCRIPTION: Immunohistochemical stains were performed to characterize the cells of interest. Control stains showed appropriate reactivity. Results CK7:Strongly uniformly positive CK20:Rare positive cells TTF-1:Negative CDX-2:Negative ALEXANDRE-3:Negative Hep-Par1:Negative Villin:Negative Interpretation: The overall immunophenotype is nonspecific, but favors an upper gastrointestinal/pancreaticobiliary phenotype. A primary lung adenocarcinoma with an enteric phenotype cannot be completely excluded. This test was developed and its performance characteristics determined by [facility]. It has not been cleared or approved by the U. S. Food and Drug Administration. The FDA has determined that such clearance or approval is not necessary. This test is used for clinical purposes. It should not be regarded as investigational or for research. ICD-9 CODES: CPT CODES: 1: 18901, 09576, 29624, 71463, 78237, 51918, 53719 PROCEDURE/ADDENDA: Immunohistochemistry SPI Interpretation {Not Entered} Results-Comments This is an addendum to report the results of additional immunohistochemistry. An immunohistochemical stain for SATB-2 was performed. A control stain showed appropriate reactivity. Results: Variable moderate staining of neoplastic cells. Interpretation: SATB-2 has a high sensitivity and moderate specificity in determining colorectal carcinoma, but upper gastrointestinal and pancreaticobiliary carcinoma still can not be completely excluded. Correlation with radiology and colonoscopy, if clinically indicated, is recommended. *This test was developed and its performance characteristics determined by [facility]. It has not been cleared or approved by the [place]. S. Food and Drug Administration. The FDA has determined that such clearance or approval is not necessary. This test is used for clinical purposes. It should not be regarded as investigational or for research. Electronically Signed Out Alisia Thibodeaux MD Electronically Signed Out Alisia Thibodeaux MD [facility] Pathology [facility] [address], [place] [address] Technical component performed at [facility], [facility] [address], [address]
== END 2017-03-23 23:59 | disposition home or self-care (01) ==
LOC: ORA 01:32 → SOUO 23:59
PROVIDERS: ATTEND Radiology Diagnostic Radiology
DX: C22.7 Other specified carcinomas of liver (principal)
CPT/HCPCS: 36415; 47000; 76942; 85014; 88307; 88341; 88342; J1170; J2250; J2704

== ENCOUNTER 2017-04-03 07:23 | Inpatient (IN) | payer OTHER ==
[~2017-04-03] VITALS: Ht 200.7 cm; Wt 76.9 kg
[2017-04-03] VITALS (14 sets, daily range): BP systolic 84–104; BP diastolic 43–68; PULSE 114–128; RESP 16–31; O2SAT 93–100
[~2017-04-03 07:23] MED LIST changes: +ENOX40DI8 SUBQ; +SUCR1TAB PO; -SUCR1TAB30 PO
--- NOTE | 2017-04-03 07:31 | ED.REPORT ---
HPI-Dyspnea / Wheezing Date of Service Apr 03, 2017 ED Provider: Dr. 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 Associated symptoms include palpitations, dyspnea on minimal exertion and chest pain. Denies fever, cough, sputum, vomiting, hematemesis, or bloody diarrhea. Pt has not been taking his Lovenox for 2 days because has was scheduled for liver biopsies. Nursing Notes Stated Complaint: SOB/ RAPID HEART Chief Complaint: SOB Nursing Notes Reviewed: Yes Allergies: Coded Allergies: No Known Allergies (Unverified , 03/23/17) Scheduled ([Iron]) 150 MG PO BID PT UNSURE OF DOSE ([Muscle Relaxer]) PO DAILY PT UNSURE OF DOSE Acetaminophen/Diphenhydramine (Tylenol Pm Ex-Strength Caplet) 500 Mg-25 Mg Tablet 1 EACH PO HS Enoxaparin Sodium (Enoxaparin Sodium) 40 Mg/0.4 Ml Syringe 40 MG SUBQ DAILY Pantoprazole DR (Pantoprazole DR) 40 Mg Tablet.dr 40 MG PO BID Sucralfate (Sucralfate) 1 Gm Tablet 1 GM PO TIDAC Scheduled PRN ([Al Hydrox/Mg Hydrox/Simeth]) 30 ML SUSP 30 ML PO Q6H PRN PRN For Dyspepsia or Heartburn oxyCODONE (oxyCODONE) 5 Mg Capsule 10 MG PO BID PRN PRN For Pain General Time Seen by MD: 07:36 Chief Complaint Shortness of breath Hx Obtained From: Patient Arrived By: Wheelchair Sudden in Onset?: Yes Onset Occurred: Yesterday Symptom Duration: Since onset Quality: Painful Severity: Current: Moderate Severity: Maximum: Severe Recent Healthcare: Recent doctor visit, Recent hospitalization Similar Sx Previous: No Past Medical History Past Medical History Metastatic gastric cancer Adenocarcinoma DVT bilateral knees GI bleed February 2017 Past Surgical History none reported Smoking History Never Smoker Social History Alcohol Use: Denies alcohol use Drug Use: Denies drug use Ambulatory Status Independent Review of Systems Constitutional: Denies: Fever Respiratory: Reports: Shortness of breath, Denies: Non-productive cough, Prod cough, clear Cardiovascular: Reports: Chest pain, Dyspnea on exertion, Palpitations Complete sys rev & neg: except as marked. GI: Denies: Bloody/tarry stool, Diarrhea, Hematemesis, Hematochezia, Nausea, Vomiting Physical Exam Initial Vital Signs Vital Signs (First) Date Time Temp Pulse Resp B/P Pulse Ox O2 Delivery O2 Flow Rate FiO2 04/03/17 07:34 128 21 93/66 94 Room Air 04/03/17 08:08 4 Initial VS: Reviewed Head / Eyes: Atraumatic, Normocephalic, PERRL ENT: Mucous membranes moist, Conjunctiva normal, No scleral icterus Abdomen / GI: Soft, Non-tender, No guarding, No rebound, No distention Extremities: Vascular intact, Neuro intact, No tenderness Neurologic: Alert, Oriented, Nonfocal Psychiatric: Mood/affect normal, Behavior normal, Normal thought content General/Constitutional: Awake, Alert Distress / Hydration: Positive: Distress moderate Appearance / Presentation: Positive: Pale Respiratory / Chest: Atraumatic, Breath sounds NL, Breath sounds = bilat Resp Distress / Stridor: Positive: Resp distress mild Cardiovascular: Regular rhythm Heart Rate / Rhythm: Positive: Tachycardia BP borderline low Lower Extremity / Pelvis / MS: Atraumatic, No deformity, Neurologic intact, Vascular intact Bilateral LE edema Interpretation & Diagnostics Lab Results Interpretation Result Diagram: 04/03/17 0745 04/03/17 0745 Test 04/03/17 07:45 White Blood Count 20.8th/mm3 (3.8-10.1) Red Blood Count 5.00mil/mm3 (4.40-5.80) Hemoglobin 11.7g/dL (13.8-17.2) Hematocrit 35.0% (41.0-50.0) Mean Corpuscular Volume 70.0fL (81-100) Mean Corpuscular Hemoglobin 23.4pg (27.0-35.0) Mean Corpuscular Hemoglobin Concent 33.4% (32.0-37.0) Red Cell Distribution Width 19.6% (12.3-15.4) Platelet Count 290bil/L (150-400) Neutrophils (%) (Auto) 86.1% (40-74) Lymphocytes (%) (Auto) 6.1% (14-46) Monocytes (%) (Auto) 7.0% (4-12) Eosinophils (%) (Auto) 0.1% (0-5) Basophils (%) (Auto) 0.1% (0-3) Prothrombin Time 14.9sec (8.1-12.5) Prothromb Time International Ratio 1.38ratio Activated Partial Thromboplast Time 29.9sec (22.8-33.0) D-Dimer 14.76mg/L FEU (<0.50) Sodium Level 124mEq/L (134-144) Potassium Level 5.0mEq/L (3.5-5.2) Chloride Level 82mEq/L (97-108) Carbon Dioxide Level 23mmol/L (18-29) Blood Urea Nitrogen 22mg/dL (6-20) Creatinine 0.78mg/dL (0.76-1.27) Estimat Glomerular Filtration Rate 127mL/min (>59) Glucose Level 115mg/dL (60-99) Calcium Level 9.1mg/dL (8.5-10.1) Magnesium Level 2.4mg/dL (1.6-2.6) Total Bilirubin 2.2mg/dL (0.0-1.2) Aspartate Amino Transf (AST/SGOT) 251U/L (0-50) Alanine Aminotransferase (ALT/SGPT) 99U/L (0-44) Alkaline Phosphatase 543U/L (25-150) Troponin T 0.010ug/L (0.0-0.011) Total Protein 6.5g/dL (6.4-8.4) Albumin 3.4g/dL (3.4-5.0) Procalcitonin 5.22ng/mL (0.00-0.08) ECG Interpretation ECG Interpretation: Sinus tachycardia with a rate of 123. Otherwise normal. Time: 08:34 Interpreted by: ED physician X-Ray Chest Interpretation Chest Xray Interpretation: IMPRESSION: Stable pulmonary venous engorgement and support devices. Dictated by: New Powers M.D. on 04/03/2017 at 11:01 IMPRESSION: 1. Endotracheal tube and nasogastric tube positioned as described. 2. Mild cardiomegaly and moderate vascular congestion. Dictated by: Tristin Mckenzie M.D. on 04/03/2017 at 9:55 IMPRESSION: 1. Endotracheal tube is positioned at the thoracic inlet. 2. Mild cardiomegaly and vascular congestion is similar to the prior study. Dictated by: Tristin Mckenzie M.D. on 04/03/2017 at 10:03 View: Portable, 1 view Interpretation / Wet Read by: Interpret - Radiologist CT Chest Interpretation IMPRESSION: 1. Multiple, bilateral large pulmonary emboli. 2. Flattening of the cardiac interventricular septum suggesting right heart strain. 3. Hepatic metastatic disease. 4. Findings telephoned to Dr. Nathan Paz on 04/03/17 at 0817 hrs. Dictated by: Louisa Jones MD, PhD on 04/03/2017 at 8:13 Study type: CT pulm angiogram Interpretation / Wet Read by: Interpret - Radiologist Procedures Intubation Time: 10:22 Procedure Performed by: ED physician Consent / Setup / Site Prep: Informed consent provided, Time-out performed, Oxygen administered, Pulse oximeter applied, environmental monitoring specialist applied, Hand hygiene observed, Stand sterile technique Patient Position: Neutral position Blade / ET Tube / Route: [place] scope Procedural Sedation/Analgesia: Sedation: Etomidate (20) Neuromuscular Agent: Succinylcholine ET Confirmation: Direct visualization, BS equal, End tidal CO2 device, CXR, Rising O2 sat Secured / Marked: ET tube device, Adhesive tape, Tube marked at ___ cm (27) , Tube marked at teeth (27) Complications: None Post-Procedure: Condition improved, Tolerated procedure well, Patient stable Re-Eval/Medical Decision Med Decision/Clinical Course Patient presents to the ER tachycardic hypoxic with a borderline blood pressure, known history of active cancer, known history of bilateral lower extremity DVTs, not currently on anticoagulation due to a recent biopsy. Sudden onset of shortness of breath. This presentation is highly suspicious for PE. Upon initial examination, IV access, supplemental oxygen, and close monitoring is initiated. Patient is sent almost immediately over to the CT scanner for confirmation of suspected pulmonary embolism. Upon my personal review of the CT, heparin was initiated and interventional cardiology was contacted for catheter directed TPA. Given his history of GI bleeding in the last month as well as active cancer, it is felt that at this time catheter directed TPA would be overall less risk than systemic TPA. Additionally it is felt that given the instability of his vital signs and requirement of supplemental oxygen at such young age, IV heparin would be inadequate at this time. Patient is stabilized with IV morphine and supplemental IV fluids. He is made more comfortable with supplemental oxygen. Unfortunately, because of the severity of his clinical status he is unable to lie flat. He is intubated in order to adequately secure adequate ventilation and ability to perform invasive procedures. Once intubated given the patient's large size it was rather difficult to ultimately appropriately sedate him. He was given a combination of IV Versed, IV fentanyl, IV rocuronium, and IV ketamine. Propofol was held given the concern for hemodynamic instability. The patient was in the emergency department approximately 2 hours after intubation awaiting transfer to the [facility]. During the course of his ER stay he required multiple re-evaluations of his hemodynamics, oxygenation, and subsequently once he was intubated evaluation of his sedation. He required titration of multiple IV sedative medications. Re-Evaluation/Progress #1: Time of Eval: 07:43 Patient Status: Condition improved Re-Evaluation/Progress Note: Discussed plan for CT. Spoke to pt's father about likely diagnosis of PE. Pt last took Lovenox 2 days ago. Re-Evaluation/Progress #2: Time of Eval: 08:10 Patient Status: Condition improved Re-Evaluation/Progress Note: Discussed CT results and diagnosis of multiple PEs. Discussed plan for consultation with cardiology. Pt understands and agrees with plan. Re-Evaluation/Progress #3: Time of Eval: 08:17 Patient Status: Condition improved Re-Evaluation/Progress Note: Discussed CT results and plan for admission. Pt understands and agrees with plan. Re-Evaluation/Progress #4: Time of Eval: 08:26 Patient Status: Condition improved Re-Evaluation/Progress Note: Discussed plan for echo. Pt reports that a week and a half ago he had blood transfusion for anemia. Re-Evaluation/Progress #5: Time of Eval: 10:18 Patient Status: Condition unchanged Re-Evaluation/Progress Note: Discussed plan for intubation. Pt understands and consents. Re-Evaluation/Progress #6: Time of Eval: 10:22 Patient Status: Condition improved Re-Evaluation/Progress Note: Performed intubation. Pt tolerated procedure well. Re-Evaluation/Progress #7: Time of Eval: 10:35 Patient Status: Condition improved Re-Evaluation/Progress Note: All family questions addressed. X ray in the room. Advanced the tube 1 cm. X ray shows well aerated lungs. Re-Evaluation/Progress #8: Time of Eval: 10:40 Patient Status: Condition improved Re-Evaluation/Progress Note: Advanced the tube 1 more centimeter to 27 at the teeth. Re-Evaluation/Progress #9: Time of Eval: 10:50 Patient Status: Condition improved Re-Evaluation/Progress Note: BP 119. Resp rate 15. O2 100. BP 138/104. CO2 22. Re-Evaluation/Progress #10: Time of Eval: 11:02 Patient Status: Condition improved Re-Evaluation/Progress Note: Pt seems adequately sedated. HR: 115. BP: 93/57. O2: 100 on the ventilator. Re-Evaluation/Progress #11: Time of Eval: 12:18 Patient Status: Condition improved Re-Evaluation/Progress Note: Pt is getting packaged to go the the cathode maker. Consultation #1: Referral / Consult Name: Karishma Lundberg MD Consulted With: Cardiology Call Returned at: 08:17 Surface Room Shop Optician: Will see patient Note: Discussed possibility of catheter and TPA for PEs. He will come see the patient and get a stat echo. Consultation #2: Referral / Consult Name: Corey Sheffield MD Consulted With: Hospitalist Call Returned at: 08:51 Surface Room Shop Optician: Will see patient, Agrees with plan, Accepts admit Consultation #3: Referral / Consult Name: Karishma Lundberg MD Consulted With: Cardiology Call Returned at: 10:14 Note: Intubate the pt and then take to cathode maker. Consultation #4: Referral / Consult Name: Karishma Lundberg MD Consulted With: Cardiology Call Returned at: 10:52 Note: 45 minutes until the pt will go to cathode maker. Counseled Regarding: Diagnosis, Lab results, Need for admission Discharge & Departure Impression: Primary Impression: Pulmonary emboli Pulmonary embolism type: other Chronicity: acute Acute cor pulmonale presence: without acute cor pulmonale Qualified Code: I26.99 - Other pulmonary embolism without acute cor pulmonale Additional Impression: Respiratory failure Disposition: ADMITTED TO HOSPITAL Discharge Condition All VS Reviewed: Yes Condition: Improved Referrals: Wilmar Suazo MD Crit Care Except Billable Proc Time Spent: 105-134 minutes Services Performed: Patient management by me, Time spent at bedside, Reviewing test results, Reviewing imaging, Discussing patient care, Documentation in record, Time with fam/surrogate Critical Care Notes: 120 minutes, See MDM Scribe Attestation Portions of this note were transcribed by Grace Lantigua. I, Dr. Paz personally performed the history, physical exam and medical decision-making; I reviewed and confirmed the accuracy of the information in the transcribed note. Signed by: Arabella Patricia, 04/03/2017. copies to: Wilmar Suazo MD, Timothy S DO Apr 03, 2017 07:31 GRACE LANTIGUA Apr 03, 2017 07:39
[2017-04-03] MEDS ORDERED: 0.9% Sodium Chloride 1,000 ML IV ONE (07:38)
[2017-04-03] MEDS ORDERED: Ondansetron 2 mg/mL 2 mL Inj IVPUSH ONE (07:40)
[2017-04-03 08:01] LABS: BASOPHILS % (AUTO) 0.1 % (0-3); EOSINOPHILS % (AUTO) 0.1 % (0-5); Mean Corpuscular Hemoglobin 23.4 pg (27.0-35.0); NEUTROPHILS % (AUTO) 86.1 % (40-74); Platelet Count 290 bil/L (150-400)
[2017-04-03] MEDS ORDERED: Heparin 5,000 Unit/mL Inj IVPUSH ONE (08:15)
[2017-04-03] MEDS ORDERED: Heparin 25K Unit/500mL 0.45 NS 25,000 UNIT in IV Premix 1 EACH IV ONE (08:15)
[2017-04-03 08:20] LABS: INR 1.38 ratio
[2017-04-03 08:25] LABS: TROPONIN T 0.01 ug/L (0.0-0.011)
--- NOTE | 2017-04-03 08:27 | DRSVH ---
PROCEDURE: CT ANGIO CHEST PULMONARY EMBOLISM ([id number]) INDICATIONS: h/o dvt, CA, sudden SOB TECHNIQUE: After the administration of intravenous contrast, 2 mm thick sections acquired from the pulmonary api mao to the posterior costophrenic angles. 3-dimensional maximum intensity projection (MIP) coronal a nd sagittal reformats were then acquired through the thorax. For radiation dose reduction, the follo wing was used: automated exposure control, adjustment of mA and/or kV according to patient size. COMPARISON: [facility], [place], US GUIDED BX LIVER, 03/23/2017, 11:45. FINDINGS: Image quality: Excellent. Pulmonary arteries: Multiple, large central and peripheral pulmonary emboli are noted involving the m ain pulmonary arteries, upper lower and middle lobe segmental arteries as well as subsegmental arteri es. Lungs and pleura: Lungs are clear. No pleural effusions or pneumothorax. Central and peripheral ai rways are patent. Mediastinum: Heart size is normal, without pericardial effusion. There is flattening of the cardiac interventricular septum suggesting right heart strain. No mediastinal or hilar adenopathy. Thoracic aorta is normal in caliber and enhancement. Esophagus is normal in caliber, without hiatal hernia. Bones and chest wall: No suspicious bony lesions. Ribs and thoracic spine appear intact throughout. Thyroid gland is within normal limits. No axillary or supraclavicular adenopathy. Abdomen: Numerous heterogeneous enhancing masses scattered throughout the liver compatible with know n adenocarcinoma metastatic disease. Visualized upper abdominal solid organs appear normal in the ear ly arterial phase of enhancement. IMPRESSION: 1. Multiple, bilateral large pulmonary emboli. 2. Flattening of the cardiac interventricular septum suggesting right heart strain. 3. Hepatic metastatic disease. 4. Findings telephoned to Dr. Nathan Paz on 04/03/17 at 0817 hrs. Dictated by: Louisa Jones MD, PhD on 04/03/2017 at 8:13 Approved by: Louisa Jones MD, PhD on 04/03/2017 at 8:26
[2017-04-03 08:28] LABS: D-Dimer 14.76 mg/L FEU (<0.50)
[2017-04-03 08:36] LABS: Magnesium 2.3 mg/dL (1.6-2.6)
[2017-04-03] MEDS ORDERED: Heparin 10,000 Unit/1,000 mL NS Premix IV ONE (09:36)
[2017-04-03] MEDS ORDERED: Heparin 1,000 Unit/mL 10 mL Inj ONE ×3 (09:36→12:46)
[2017-04-03] MEDS ORDERED: 0.9% Sodium Chloride 2,000 ML ONE (09:36)
[2017-04-03] MEDS ORDERED: Heparin 1,000 Units/500 mL NS Premix IV ONE ×3 (09:36→12:38)
--- NOTE | 2017-04-03 10:09 | DRSVH ---
[facility] [address] [place] [address] Echocardiogram Report Name: DREA PELAYO WStudy Chuy e: 04/03/2017 Height: 79 in Hospital Exam Location: [facility] Weight: 175 lb Gender: Male BSA: 2.2 m2 : 1990 Age: 27 yrs BP: 104/66 mmHg Reason For Study: Pulmonary Embolism Ordering Physician: HOSPITALIST [facility] Performed By: Rhoda Mcmullen Referring Physician: HOSPITALIST [facility] Interpretation Summary Normal left ventricle size with ejection fraction 50-55%. Flattened septum is consistent with RV pressure/volume overload. Severely dilated right ventricle with moderate to severely reduced systolic function. Severely dilated right atrium. Right ventricle thrombus visualized. No valvular abnormality. Procedure: A two-dimensional transthoracic echocardiogram with color flow and Doppler was performed. The study quality was technically limited. There is no prior echocardiogram noted for this patient. The patient was imaged in an upright position. The patient was in sinus tachycardia with heart rates between 120-122 bpm during the exam. Left Ventricle: The left ventricle is normal in size. There is normal left ventricular wall thickness. The ejection fraction is estimated to be 50-55%. Flattened septum is consistent with RV pressure/volume overload. There are no other obvious focal wall motion abnormalities. Right Ventricle: The right ventricle is severely dilated. RV thrombus visualized. Right ventricular systolic function is moderate to severely reduced. Atria: The left atrial size is normal. The right atrium is severely dilated. Mitral Valve: The mitral valve leaflets appear mildly thickened, but open well. There is trace mitral regurgitation. Aortic Valve: The aortic valve is trileaflet. The aortic valve opens well. No aortic regurgitation is present. Tricuspid Valve: Tricuspid leaflets are thickened. Pulmonic Valve: The pulmonic valve is normal in structure and function. Great Vessels: The aortic root is normal size. The ascending aorta could not be visualized. Pericardium/ Pleura There is a small pericardial effusion noted. There is no pleural effusion. MMode/2D Measurements & Calculations LVIDd: 4.3 cm LVOT diam: 2.3 cm LV mena. diameter/BSA (cm/m^2): 2.0 IVSd: 1.0 cm LVPWd: 0.72 cm Electronically signed by: Karishma Morrow on Reading Physician:04/03/2017 10:08 AM
[2017-04-03] MEDS ORDERED: Senna-Docusate 8.6-50 mg Tablet PO PRN (10:15)
[2017-04-03] MEDS ORDERED: Alum-Mag Hydrox-Simeth 30 mL Suspension PO PRN (10:15)
[2017-04-03] MEDS ORDERED: Polyethylene Glycol (PEG) 17 Gm Powder PO PRN (10:15)
--- NOTE | 2017-04-03 10:22 | CONS ---
[address] [address] CONSULTATION REPORT PATIENT: DREA PELAYO : 1990 MR#: [id number] ADMIT: 04/03/2017 JOB ID: [id number] DATE OF SERVICE: 04/03/2017 CARDIOLOGY CONSULTATION: REQUESTED BY: Nathan Lau D.O. and Jak Sheffield M.D. REASON FOR EVALUATION: Massive bilateral pulmonary emboli. HISTORY: The patient is a 27-year-old male who was in his usual state of health until six weeks ago when he had bleeding peptic ulcer. Endoscopy was performed and show ulcerated polyps. Biopsy was done with an ultrasound of the abdomen which showed liver metastasis. He had liver biopsy done 1-1/2 weeks ago. The patient was diagnosed with metastatic gastric cancer. He has blood clot to his knees three weeks ago and he was started on Lovenox. The Lovenox was withheld temporarily for liver biopsy. The patient developed sudden onset shortness of breath two days ago. He denies coughing, orthopnea or PND. The patient presented to [facility]. CT scan showed massive bilateral pulmonary emboli with evidence of right heart strain. A stat echocardiogram showed markedly dilated right ventricle with depressed right ventricular function. PAST MEDICAL HISTORY: 1. Metastatic gastric cancer. 2. Upper GI bleed 6 weeks ago. 3. Liver biopsy 1-1/2 weeks ago. 4. Peutz-Jeghers syndrome. 5. Deep venous thrombosis of the lower extremities. CURRENT MEDICATION: Oxycodone and cyclobenzaprine. ALLERGIES: No known allergies. SOCIAL HISTORY: The patient smokes weed. He denies cigarettes or alcohol. FAMILY HISTORY: His mother had breast cancer. REVIEW OF SYSTEMS: All 10 systems are reviewed and pertinent for rib fracture on December 02, 2016 from [employer]. Dislocated right hip on January 05, 2017. He lost 20 pounds in the past year. PHYSICAL EXAMINATION: Reveals a thin young male, appearing in acute respiratory distress. Temperature is 36.4. Blood pressure is 102/60. Pulse 122. Respiration is 26. Skin is warm and dry. Head and face have normal configuration. Anicteric sclerae. Dry mucosa. Neck supple. No jugular venous distention or carotid bruits. Chest normal expansion. Lungs: Diminished breath sounds. Heart: The first heart sound is normal. P2 is prominent. No murmur. Abdomen: Soft. Nontender. Extremities: No clubbing, cyanosis or edema. Muscle wasting. Neurologic: Grossly intact. EKG shows sinus tachycardia. Nonspecific ST abnormality. CT scan and echocardiogram were reviewed. IMPRESSION: 1. Acute massive bilateral pulmonary emboli with right heart strain. 2. Metastatic gastric cancer. 3. History of gastrointestinal bleed six weeks ago. 4. Liver biopsy 1-1/2 weeks ago. 5. Deep venous thrombosis of the lower extremity. PLAN: I discussed with the patient, his father and his sister. His risk of dying is quite high with conservative management with heparin and warfarin. However, he has contraindication to systemic thrombolysis with recent GI bleed and liver biopsy. The patient's only option would be catheter directed thrombolysis. The risk of bleeding is there but would be lower than systemic thrombolysis. The risks and benefits of the procedure have been explained to the patient. He understands and agreed to proceed with the procedure. EMIR
[2017-04-03] MEDS ORDERED: Etomidate 2 mg/mL 20 mL Inj IV ONE (10:30)
[2017-04-03] MEDS ORDERED: Succinylcholine Chloride 20 mg/mL 5 mL Inj ONE (10:30)
[2017-04-03] MEDS ORDERED: Rocuronium 10 mg/mL 5 mL Inj ONE (10:30)
[2017-04-03] MEDS ORDERED: fentaNYL-PF 50 mCg/mL 2 mL Inj IVPUSH ONE (10:40)
[2017-04-03 10:41] LABS: Magnesium 2.4 mg/dL (1.6-2.6)
[2017-04-03] MEDS ORDERED: fentaNYL-PF 50 mCg/mL 2 mL Inj ONE (10:41)
--- NOTE | 2017-04-03 10:59 | DRSVH ---
PROCEDURE: X-RAY CHEST ONE VIEW, PORTABLE ([id number]) INDICATIONS: intubation TECHNIQUE: One view of the chest was acquired. COMPARISON: [facility], CR, XR CHEST 1VW (PORTABLE), 03/06/2017, 12:58. FINDINGS: Surgical changes and devices: An endotracheal tube is identified with the tip positioned approximatel y 5-6 cm above the level of the alen. A nasogastric tube is seen extending below the diaphragm. Lungs and pleura: The pulmonary vasculature is increased, particularly within the perihilar regions. No lobar consolidation, effusion, or definite pneumothorax is evident. Mediastinum: Mediastinal contours appear normal. The heart appears to be enlarged. Bones and chest wall: No suspicious bony lesions. Overlying soft tissues appear unremarkable. IMPRESSION: 1. Endotracheal tube and nasogastric tube positioned as described. 2. Mild cardiomegaly and moderate vascular congestion. Dictated by: Tristin Mckenzie M.D. on 04/03/2017 at 9:55 Approved by: Tristin Mckenzie M.D. on 04/03/2017 at 9:56
--- NOTE | 2017-04-03 11:04 | DRSVH ---
PROCEDURE: X-RAY CHEST ONE VIEW, PORTABLE ([id number]) INDICATIONS: ET TUBE PLACEMENT TECHNIQUE: One view of the chest was acquired. COMPARISON: [facility], CR, XR CHEST 1VW (PORTABLE), 03/06/2017, 12:58. FINDINGS: Surgical changes and devices: New ET tube with tip 5 single the alen. Enteric tube with tip below t he diaphragm. Lungs and pleura: No pleural effusions or pneumothorax. Mild perihilar pulmonary opacities most cons istent with vascular engorgement. Otherwise lungs are clear. Mediastinum: Mediastinal contours appear normal. Heart size is normal. Bones and chest wall: No suspicious bony lesions. Overlying soft tissues appear unremarkable. IMPRESSION: Stable pulmonary venous engorgement and support devices. Dictated by: New Powers M.D. on 04/03/2017 at 11:01 Approved by: New Powers M.D. on 04/03/2017 at 11:03
--- NOTE | 2017-04-03 11:05 | DRSVH ---
PROCEDURE: X-RAY CHEST ONE VIEW, PORTABLE ([id number]) INDICATIONS: ET TUBE PLACEMENT TECHNIQUE: One view of the chest was acquired. COMPARISON: [facility], CR, XR CHEST 1VW (PORTABLE), 04/03/2017, 10:25. FINDINGS: Surgical changes and devices: The endotracheal tube has been advanced in the interim and now is posit ioned approximately 3 or 4 cm above the level of the alen at the level of the thoracic inlet. The nasogastric tube is again seen extending below the diaphragm. Lungs and pleura: Aeration of the lungs is similar to the prior study with moderate increased vascula rity within the perihilar regions. No lobar consolidation, large effusion, or pneumothorax is eviden t. Mediastinum: Mediastinal contours appear normal. Heart size is mildly enlarged. Bones and chest wall: No suspicious bony lesions. Overlying soft tissues appear unremarkable. IMPRESSION: 1. Endotracheal tube is positioned at the thoracic inlet. 2. Mild cardiomegaly and vascular congestion is similar to the prior study. Dictated by: Tristin Mckenzie M.D. on 04/03/2017 at 10:03 Approved by: Tristin Mckenzie M.D. on 04/03/2017 at 10:04
[2017-04-03] MEDS ORDERED: Midazolam Inj 100 MG in IV Premix 1 EACH IV SCH (11:09)
[2017-04-03] MEDS: fentaNYL 2,500 mCg/250 mL 2,500 MCG in IV Premix 1 EACH IV SCH (11:31)
[2017-04-03 11:46] LABS: APPEARANCE,URINE CLEAR (CLEAR,HAZY); COLOR,URINE STRAW (YELLOW); OCCULT BLOOD,URINE NEGATIVE (NEGATIVE); UROBILINOGEN,URINE NORMAL (NORMAL)
[2017-04-03] MEDS ORDERED: Ketamine 10 mg/mL 20 mL Inj IV ONE (11:55)
--- NOTE | 2017-04-03 12:02 | ABG ---
DateTimeAnalyzed 11:55:00 -_ pH ____7.426 - 7.350 7.450 pCO2 ___35.0__ -mmHg 35.0 45.0 pO2 207 -mmHg 69.0 116 HCO3- ___22.6__ -mmol/L 22.0 26.0 ABE ___-0.9__ -mmol/L -2.0 2.0 tHb ____9.4__ -g/dL 12.0 18.0 O2Hb ___97.6__ -% COHb ____1.4__ -% 0.0 1.5 MetHb ____0.7__ -% 0.4 1.5 sO2 ___99.7__ -% 25.0 FIO2 ___50.0__ -% PRVC 650 - PEEP ____5.0__ -cmH2O Set_RR ___16.0__ -b/min Drawn By JJ - Date/Time Notified____ 12:01:00 -_ Spontaneous_RR ___18.0__ -b/min Oxygen Device 1 VENTILATOR - Notified By JJ - Notified Whom DR OKELLEY - B 757 -mmHg tO2 ___13.4__ -Vol% Yaakov test _Positive -
[2017-04-03] MEDS: Alteplase (Cathflo) Inj 10 MG in 0.9% Sodium Chloride 250 ML IV SCH (12:45)
[2017-04-03] MEDS ORDERED: Alteplase (Cathflo) Inj 10 MG in 0.9% Sodium Chloride 250 ML IV SCH (12:45)
[2017-04-03] MEDS ORDERED: HYDROmorphone 1 mg/mL Inj IV PRN (13:05)
[2017-04-03] MEDS ORDERED: LORazepam 0.5 mg Tablet PO PRN (13:05)
[2017-04-03] MEDS ORDERED: Heparin 25K Unit/500mL 0.45 NS 25,000 UNIT in IV Premix 1 EACH IV SCH (13:05)
--- NOTE | 2017-04-03 13:27 | DI96 ---
[address] [address] PERIPHERAL CATHETERIZATION/INTERVENTION REPORT PATIENT: DREA PELAYO : 1990 MR#: [id number] ADMIT: 04/03/2017 JOB ID: [id number] DATE: 04/03/2017 PATIENT PROFILE: The patient is a 27-year-old male with history of metastatic gastric cancer, upper GI bleed and deep venous thromboses. He presented with massive bilateral pulmonary emboli. There is right ventricle thrombus. PROCEDURE: 1. Conscious sedation for 24 minutes. 2. Central venous access from the right groin under ultrasound guidance. 3. EKOS catheter placement in the left lower lobe branch under fluoroscopy. 4. Catheter-directed thrombolysis to the right ventricle and left pulmonary artery. COMPLICATION: None. METHOD: Conscious sedation was achieved with IV Versed, IV fentanyl and ketamine. Central venous access was obtained from the right groin under 1% lidocaine local anesthesia using a 6-[place] sheath. This was performed under ultrasound guidance. A 5-[place] 3DRC catheter was used to direct a Glidewire into the left main pulmonary artery. It was exchanged to a [place] Advantage wire. An EKOS catheter with a treatment length of 18 cm was then placed in the left lower lobe branch. This was secured in situ. The patient was then transferred to intensive care unit in stable condition. TPA will be infused at 1 mg/hour for 10 hours. FLUOROSCOPY TIME: 1.1 minutes. RESULTS: 1. Successful EKOS catheter placement in the left lower lobe branch. 2. Catheter-directed thrombolysis to the right ventricle and left pulmonary artery initiated. It will be infused at 1 mg/hour for 10 hours. MTDD
[2017-04-03] MEDS ORDERED: Norepineph 8,000 mCg/250 mL NS 8,000 MCG in IV Premix 1 EACH IV SCH (13:35)
--- NOTE | 2017-04-03 13:55 | NUR ---
Patient intubated in the ER at 1030. Patient placed on a Servo I. VT 650 patient exhaled VT was 778. Rate set at 16 patient rate was 12. 50% saturation was 99% on this. Trip to quality assurance qa lab technician time spent 1hour. Patient now in room 2010
[2017-04-03] MEDS: Propofol Inj 1,000,000 MCG in IV Premix 1 EACH IV PRN (14:10)
[2017-04-03] MEDS ORDERED: Sodium Chloride LOK Flush 10 mL Syringe IVFLUSH PRN ×2 (15:25)
[2017-04-03] MEDS ORDERED: 0.9% Sodium Chloride 250 ML IV ONE (15:35)
[2017-04-03] MEDS ORDERED: Pantoprazole Inj 80 MG in 0.9% Sodium Chloride 100 ML IV STA (16:20)
[2017-04-03] MEDS ORDERED: ALTEPLASE INTRACATH ONE ×3 (16:30)
[2017-04-03] MEDS ORDERED: SODIUM CHLORIDE 0.9% INTRACATH ONE ×3 (16:30)
[2017-04-03] MEDS ORDERED: Pantoprazole 4 mg/mL 10 mL Inj IVPUSH ONE (16:40)
--- NOTE | 2017-04-03 16:45 | DRSVH ---
PROCEDURE: X-RAY PICC LINE PLACEMENT BY NURSE ([id number]) INDICATIONS: hypotension COMPARISON: None. FINDINGS: PICC was placed by the intravenous therapy team from the left side. Fluoroscopic spot monica m demonstrates tip of PICC projected over the cavoatrial junction. IMPRESSION: Tip of PICC is projected over the cavoatrial junction. Dictated by: Mayela Chavez M.D. on 04/03/2017 at 16:43 Approved by: Mayela Chavez M.D. on 04/03/2017 at 16:44
[2017-04-03] MEDS: Pantoprazole Inj 80 MG in 0.9% Sodium Chloride 80 ML IV STA ×2 (17:00→17:07)
--- NOTE | 2017-04-03 17:18 | PCM.HPMED ---
Subjective Date of Service Apr 03, 2017 Primary Provider: Admitting Physician: Corey Sheffield MD Primary Care Physician: Noplelo Attending Physician: Corey Sheffield MD Chief Complaint: Shortness of breath History of Present Illness: Unfortunate 27-year-old male with a family history of Peutz-Jeghers syndrome with recent GI bleed and metastatic adenocarcinoma to the liver who presents to the emergency department today due to shortness of breath that began yesterday afternoon. History is obtained from the family who report that the patient has had a steady decline over the last couple of months. Yesterday, while they were out shopping, the patient became very short of breath, diaphoretic, stated that he felt like he was going to . He has to come to the hospital and on approach the patient stated he began to feel better and was to just go home. Prior to going to sleep the patient had an additional episode and stated that if his breathing did not improve by the morning he would come to the emergency department. On presentation the patient underwent CT of the chest was diagnosed with bilateral pulmonary embolisms and a flattened interventricular septum, likely due to recent occlusive DVTs.. Follow-up echo showed severe dilation of the right ventricle and atrium, with flattening of the intraventricular septum, consistent with severe right heart strain. Patient was taken to the [facility] and underwent EKOS with Dr. Olguin. Patient was intubated and sedated on Versed and fentanyl. He arrived to the floor with a map of 65. Patient's blood pressure dropped nearly 10 points with the initiation of propofol and this was immediately discontinued. The patient received 500 mL of normal saline and PRBCs were ordered. After the fluid cessation of propofol the patient's blood pressures rebounded to a map of proximally 60. Discussion was had with Dr. Yuki muro and Dr. Olguin on the best course of action to sustain the patient's vitals. Additional 5 mg TPA was given by push through the EKOS catheter by Dr. Olguin. Currently awaiting transfusion. Patient's recent history: Demonstrates a back in July the patient started complaining of abdominal pain but was stable until March 06 when he had a upper GI bleed. The patient underwent EGD which identified ulcerated and highly polyploid mass effect in the gastric body which was biopsied. Initial biopsies revealed gastric hyperplastic polyp negative for dysplasia or malignancy. Due to the concern for Peutz-Jeghers syndrome the patient underwent MRI which demonstrated innumerable hepatic metastases with high suspicion for malignancy. Patient was started on Lovenox after ultrasound identified bilateral occlusive DVTs in the popliteal veins on March 20. Patient had been taking this up until the time of the biopsy and it is unclear whether the patient was on Lovenox when he presented today. Patient followed up with Dr. Suazo who ordered a CT-guided biopsy of the liver. Biopsy of the liver mass on March 27 revealed poorly differentiated adenocarcinoma in 5 of 5 core biopsies. Review of Systems: Complete review of systems performed was discussed with family and are included in the history of present illness Allergies Coded Allergies: lactose-reduced food (Verified Allergy, Severe, Throat swelling , 04/04/17) Pt sister reports pt was given Ensure supplements to trial, pt noted throat swelling/tightening with ensure intake. Dietary notified. nutritional supplement,special formulas (Verified Allergy, Severe, Throat swelling , 04/04/17) Pt sister reports pt was given Ensure supplements to trial, pt noted throat swelling/tightening with ensure intake. Dietary notified. Home Medications Acetaminophen/Diphenhydramine (Tylenol Pm Ex-Strength Caplet) 500 Mg-25 Mg Tablet 1 EACH PO HS Enoxaparin Sodium (Enoxaparin Sodium) 40 Mg/0.4 Ml Syringe 40 MG SUBQ DAILY Pantoprazole DR (Pantoprazole DR) 40 Mg Tablet.dr 40 MG PO BID Sucralfate (Sucralfate) 1 Gm Tablet 1 GM PO TIDAC ([Al Hydrox/Mg Hydrox/Simeth]) 30 ML SUSP 30 ML PO Q6H PRN PRN For Dyspepsia or Heartburn oxyCODONE (oxyCODONE) 5 Mg Capsule 10 MG PO BID PRN PRN For Pain PMH Metastatic gastric cancer Adenocarcinoma DVT bilateral knees GI bleed February 2017 Surgical History Liver biopsy Family History Mother's family has confirmed Peutz-Jeghers syndrome Social History Hx Alcohol Use: No Hx Substance Use: Yes (smokes pot) Hx Tobacco Use: No Smoking Status: Never Smoker Living Arrangement: with Family Exam Vital Signs Vital Sign - Last Date Time Temp Pulse Resp B/P Pulse Ox O2 Delivery O2 Flow Rate FiO2 04/03/17 15:58 114 97 30 04/03/17 15:26 36.8 16 100/58 Mechanical Ventilator 04/03/17 10:17 4 Exam General: Sedated age-appropriate male HEENT: JVD noted with patient lying flat Lymph: No lymphadenopathy Cardio: Tachycardia with regular rhythm no murmurs rubs or gallops Respiratory: CTA bilaterally Abdomen: Soft, positive bowel sounds, no injection sites identified Extremities: Bilateral pitting edema, dorsal pulses intact Psych: Sedated Neuro: Sedated Skin: No rash Lab and Diagnostics Result Diagram: 04/03/17 1631 04/03/17 0745 X-Rays, CTs and MRIs Chest x-ray Stable pulmonary venous engorgement and support devices. Dictated by: New Powers M.D. on 04/03/2017 at 11:01 CT angiogram 1. Multiple, bilateral large pulmonary emboli. 2. Flattening of the cardiac interventricular septum suggesting right heart strain. 3. Hepatic metastatic disease. 4. Findings telephoned to Dr. Nahtan Paz on 04/03/17 at 0817 hrs. Dictated by: Louisa Jones MD, PhD on 04/03/2017 at 8:13 Chest x-ray 1. Endotracheal tube and nasogastric tube positioned as described. 2. Mild cardiomegaly and moderate vascular congestion. Dictated by: Tristin Mckenzie M.D. on 04/03/2017 at 9:55 Chest x-ray 1. Endotracheal tube is positioned at the thoracic inlet. 2. Mild cardiomegaly and vascular congestion is similar to the prior study. Dictated by: Tristin Mckenzie M.D. 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 Obstructive shock secondary to pulmonary embolism from bilateral popliteal DVT' s with high clot burden and right ventricular failure; present on admission; ongoing -Recent ultrasound shows bilateral popliteal DVTs which are the likely primary source; unsure patient was on Lovenox prior to his shortness of breath -Echo demonstrated right ventricular and atrial dilation -EKOS initiated by Dr. Olguin; additional 5 mg TPA push given through a catheter -We will consider additional TPA -[facility] was contacted for possible transfer for surgical clot removal -Continue on heparin at current settings; cardiology will change if necessary -Patient given 500 mL bolus without much effect -PRBC 1 unit pending transfusion -We will not use propofol as this previously decreased his blood pressure -The patient declines may consider use of dopamine 5mcg/kg/min infusion through PICC line or phenylephrine -Some discussion about cardiology re-situating in the catheter tomorrow; currently catheter is in the left pulmonary artery -If any decline overnight pulmonology and cardiology are to be contacted immediately -Currently sedated on Ativan and fentanyl Acute hypoxic respiratory failure; present on admission; ongoing -Patient is currently intubated and then will be managed by pulmonology -Initial blood gas showed mixed alkalosis Acute blood loss anemia with possible GI bleed; present on admission; ongoing -Patient's hematocrit dropped 10 points and 7 hours -Recent GI bleed second to gastric ulceration -Patient started on protonics drip -Hemoccult ordered -H&H every 4 hour through the night and CBC in a.m. -Pending transfusion -4 units PRBCs on hold Acute leukocytosis; present on admission; ongoing -There is no recent complaints per family of infectious symptoms -White count was elevated greater than 20,000 and elevation of procalcitonin to 5.22 -In this setting unsure what to make of the procalcitonin, a white count could be due to stress reactions from above -Monitor for fevers or other signs of infection -We will withhold antibiotics at this time Stage IV poorly differentiated adenocarcinoma; present admission; ongoing -Peripheral reports the patient's activity has declined severely -Patient is on high-dose opiates to control severe pain -Patient was to have a port placed this is obviously being deferred for the moment -Dr. Suazo's office was contacted Disposition: Patient is being admitted to inpatient status with expected length of stay greater than two midnights due to to severity of presentation, duration of treatment, and risks of adverse events disposition Full code Pain Evaluation: Adequate Pain Control Resuscitation Status: CPR: Attempt Resuscitation Time spent 65 minutes Attending Statement I examined the patient at time of admission. Personally reviewed imaging data. Review dated with consultants. Counseled family at bedside. I agree with the assessment and plan as stated above. Adrian Qiu DO Apr 03, 2017 17:18 Corey Sheffield MD Apr 05, 2017 07:42
[2017-04-03] MEDS ORDERED: LORazepam 100 mg/100 mL Drip IV PRN ×2 (17:35)
--- NOTE | 2017-04-03 17:35 | CONS ---
[address] [address] CONSULTATION REPORT PATIENT: DREA PELAYO : 1990 MR#: [id number] ADMIT: 04/03/2017 JOB ID: [id number] PULMONARY CRITICAL CARE CONSULTATION: DATE OF SERVICE: 04/03/2017 REASON FOR CONSULTATION: This patient is a 27-year-old man with recently diagnosed gastric adenocarcinoma, GI bleed, liver metastases, status post recent liver biopsy, presenting with massive pulmonary emboli. He is seen in consultation at the request of Dr. Jak Sheffield for acute respiratory failure and massive PE. The patient was seen and evaluated with resident physician, Chavez Mahajan DO. Please refer to separate detailed note for additional information. HISTORY OF PRESENT ILLNESS: The patient is currently intubated and therefore all of the history is obtained per review of medical records. He is a 27-year-old who had no prior medical history or problems before a recent hospitalization on March 06, 2017, for a GI bleed when he presented with hematemesis. The workup during that hospitalization revealed a gastric mass, biopsies confirming adenocarcinoma with evidence of liver lesions most likely consistent with metastases. During this presentation, he was also diagnosed with bilateral lower extremity popliteal DVTs that were occlusive. He was started on Lovenox during this admission. Following discharge, he has been followed by Dr. Suazo in Oncology and had his Lovenox held for two days for a liver biopsy on March 23. This was uneventful, and the biopsy confirmed adenocarcinoma and he resumed Lovenox subsequently. He was asked to hold his Lovenox for one dose prior to placement of a PICC line on April 04, but according to his family, he held dose since yesterday, i.e., April 02. He presented to the hospital today in the morning with acute onset shortness of breath, palpitations and chest pain. Workup in the ER included a chest CT which revealed massive pulmonary embolism involving the main pulmonary arteries. He was taken immediately for EKOS catheter directed thrombolytic therapy. Because of his recent liver biopsy and GI bleed, he would not be considered a candidate for systemic thrombolytics or higher dose thrombolytics via EKOS and has been getting 1 mg of alteplase per hour without a bolus dosing. He remains borderline with regards to the blood pressure and intermittently hypotensive. We attempted a fluid challenge and with this his blood pressure did not show any improvement. He is currently sedated with midazolam and fentanyl, and trying to switch to propofol understandably resulted in hypotension, so the propofol as been stopped as well. He is not currently on any pressors and these are not really expected to help anyway. PAST MEDICAL HISTORY: 1. Metastatic gastric adenocarcinoma diagnosed following a GI bleed in February 2017 - polypoid gastric mass, liver lesions confirmed adenocarcinoma based on liver biopsy March 23. 2. Bilateral popliteal DVTs diagnosed on March 20, 2017 on ultrasound, on Lovenox except for brief interruption for the liver biopsy and plan for PICC line placement tomorrow. 3. Diagnosis of Peutz-Jeghers syndrome. SOCIAL HISTORY, FAMILY HISTORY, REVIEW OF SYSTEMS: Could not be obtained since patient is intubated. PHYSICAL EXAMINATION: Complete physical examination is per resident's separate note. He is afebrile, pulse 114, respirations 16, BP 100/58, sats 96% on 30% FiO2 and 5 cm of PEEP. General: Thin, tall young man. Neck: No cervical lymphadenopathy. Pupils small 2-3 mm and symmetric. Chest clear to auscultation bilaterally but he has pectus excavatum. Heart: Regular rate, rhythm. No murmurs. Abdomen is soft, nontender. No organomegaly. Extremities: No cyanosis or clubbing but bilateral lower extremities have significant 2+ symmetric edema. Skin: No rashes. LABORATORY AND IMAGING DATA: Labs reviewed. WBC 20.8, hemoglobin 11.7, platelets 290. Chemistry reviewed. Sodium 124, potassium 5.0, chloride 82, bicarb 23, BUN 22, and creatinine 0.78. LFTs reviewed. Bilirubin 2.2, AST 251, ALT 99, alk phos is 543. Procalcitonin is 5.2. CT of the chest, PE protocol, was reviewed and shows massive clot burden with pulmonary emboli most notably in the right main pulmonary artery as well as bilateral lobar pulmonary arteries. Flattening of interventricular septum consistent with right heart strain, evidence of mets in the liver as seen before. Arterial blood gas: Most recent gas on the ventilator shows pH of 7.42, pCO2 of 35, pO2 of 207 and bicarb 22.6. ASSESSMENT AND RECOMMENDATIONS: 1. Massive/submassive pulmonary emboli. 2. Metastatic gastric adenocarcinoma diagnosed February 2017 with liver mets. 3. Bilateral popliteal deep vein thrombosis. 4. Peutz-Jeghers syndrome. 5. Acute hypoxic respiratory failure. 6. Hypotension/cardiogenic shock. 7. Acute anemia -? blood loss. This unfortunate 27-year-old man with very recent diagnosis of metastatic adenocarcinoma is presenting with submassive to massive bilateral pulmonary emboli in the setting of a brief hiatus in anticoagulation for PICC line placement. He underwent EKOS catheter directed therapy. The catheter is currently in his right main pulmonary artery and he is receiving 1 mg of tPA an hour without a bolus. His blood pressure is alternating between MAP of 50s to MAP of 60s. Fluid bolus did not result in any significant improvement in hemodynamics. We are trying to minimize sedation as much as possible. His hemoglobin has dropped significantly and whether this is due to fluid resuscitation is not clear. There is no active sign of bleeding at this time but we are going to go ahead and transfuse him and have additional blood in-house. We are also going to start a proton pump inhibitor drip given his recent history of gastrointestinal bleed and now thrombolytics being added to the picture. Will continue to the follow his hemoglobins closely. After discussion with Dr. Lundberg, we decided to go ahead with a bolus of tPA through the EKOS catheter and he has just received 5 mg. Systemic tPA obviously carries a much higher risk of bleeding in him with his GI and recent hepatic biopsy, so I would like to hold off on this if possible. If he continues to be unstable, I think another option to consider is pulmonary thrombectomy and I have a call out to the [facility] Department to further discuss this possibility especially if he worsens. I also spoke with Dr. Lundberg about putting in an IVC filter to prevent any further life-threatening clots given that he still has his lower extremity deep vein thrombosis. He has a heparin drip going as well for what that is worth. He is a FULL CODE. Family has been updated. CRITICAL CARE TIME: 100 minutes.
--- NOTE | 2017-04-03 17:42 | ABG ---
DateTimeAnalyzed 17:33:30 -_ pH ____7.456 - 7.350 7.450 pCO2 ___37.0__ -mmHg 35.0 45.0 pO2 ___89.7__ -mmHg 69.0 116 HCO3- ___26.0__ -mmol/L 22.0 26.0 ABE ____1.9__ -mmol/L -2.0 2.0 tHb ____9.0__ -g/dL 12.0 18.0 O2Hb ___96.5__ -% COHb ____2.3__ -% 0.0 1.5 MetHb ____0.0__ -% 0.4 1.5 sO2 ___98.4__ -% FIO2 ___30.0__ -% Drawn By rs - Date/Time Notified____ 17:41:00 -_ Notified By rs - Notified Whom Qiu, Adrian - K+ ____4.6__ -mmol/L 3.5 5.0 tO2 ___12.3__ -Vol%
[2017-04-03] MEDS: LORazepam 100 mg/100 mL NS 100 MG in IV Premix 1 EACH IV SCH (17:55)
--- NOTE | 2017-04-03 18:18 | NUR ---
P: Hypotension I: Went to the cardiac cath lab radiology technologist after pt arrived from ED. Pt was hard to sedate and versed gtt 6mg/hr and fentanyl 200mcqs/hr. Pt received Ketamine and NIYA in ED in cardiac cath lab radiology technologist. Pt brought back with venous sheath and EKOS started. Propofol gtt started but BP too low. NS 250cc x2 given but BP did not respond to fluid bolus. Protonix bolus given and gtt started at 10cc/hr. PICC placed left arm. Norepinephrine on stand by at this time. consulted and he doesn't feel that norepinephrine will help. Heparin gtt infusing peripherally at 1000 units/hr set rate. H & H done and one unit PRBC's infusing via PICC without difficulty. Lowery patent and drained 1500 akin urine. OGT with brown fluid 150cc. Rt venous sheath site without any signs of bleeding. Pedal pulses 1+ palpable and feet warm. Groin check Q 1 hour. at bedside and an extra dose TPA infused by through TPA catheter. No BM's. Family was at bedside and updated on pt's condition and plan of care. Pt will wake up and does not yes and no appropriately. Pt was using a lot of opiods at home for the last couple of months due to severe back pain. NPO. Observing for any signs of bleeding. E: Guarded. S: Restraints on for pt safety. Frequent rounding.
--- NOTE | 2017-04-03 18:37 | PCM.CHPMED ---
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 He also reports palpitations and chest pain. He denies fever, cough, sputum production, N/V/D, hematemesis, orthopnea, or PND. He had been in his usual state of health until 6 weeks ago when he had a bleeding peptic ulcer. Endoscopy showed ulcerated polyps. A biopsy of the polyps showed hamartoma, and an ultrasound of his liver showed numerous metastases. During this time, he was placed on Lovenox due to bilateral DVTs. His Lovenox was held for 2 days for a liver biopsy about 2 weeks ago, and again yesterday for PICC line placement for chemotherapy. On admission, CT scan showed massive bilateral pulmonary emboli. A stat echocardiogram showed markedly dilated right ventricle with depressed right ventricular function. The patient was intubated for acute respiratory failure and all history was obtained from medical records. He was immediately taken for EKOS catheter directed thrombolytic therapy. Review of Systems: ROS could not be completed due to patient status. PMH Past Medical History Metastatic gastric cancer Adenocarcinoma DVT bilateral knees GI bleed February 2017 Surgical History None reported Allergies: Coded Allergies: No Known Allergies (Unverified , 04/03/17) Family History Family History Peutz-Jeger syndrome Social History Hx Alcohol Use: NoHx Substance Use: Yes (marijuana)Hx Tobacco Use: No Smoking Status: Never Smoker Exam Vital Signs Vital Sign - Last Date Time Temp Pulse Resp B/P Pulse Ox O2 Delivery O2 Flow Rate FiO2 04/03/17 15:58 114 97 30 04/03/17 15:26 36.8 16 100/58 Mechanical Ventilator 04/03/17 10:17 4 Additional Information: General: Sedated and intubated. No acute distress Head: Normocephalic, atraumatic. External ears normal. Eyes: PERRLA, EOMI. Anicteric sclerae. Mouth: Mouth normal, Mucous membranes moist/pink Neck: Neck supple with full range of motion. Chest& Lungs: Regular rate and rhythm. No murmurs, rubs, gallops. Cardiovascular: Clear to auscultation bilaterally. No wheezes, rales, rhonchi. Abdomen: Nontender, Non-distended, No masses, Normoactive bowel tones, Soft Extremities: Bilateral lower extremity moderate-severe edema. Neuro: Sedated and intubated. 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 Massive bilateral pulmonary emboli, acute. - Patient presents with massive bilateral PE in the context of metastatic gastric cancer and bilateral DVTs, on Lovenox for 3 weeks. He had only had 2 instances that family was aware of where he held Lovenox, both for 2 days. His pulmonary emboli are causing significant right heart strain, with flatting of the interventricular septum on echo, as well as hemodynamic instability. He is at significant risk for acute GI bleed given his recent history of GI bleed from malignant ulcers. For these reasons, he is not a candidate for systemic thrombolytic therapy, so we will proceed with localized thrombolytic therapy via EKOS. - Continue thrombolytic therapy via EKOS. - Continue heparin gtt - Dr. Lundberg is following. We appreciate his expertise. - Discussed possible pulmonary thrombectomy with [facility] Cardiothoracic Surgery Department Acute hypoxic respiratory failure. - Secondary to PE. Patient is sedated and intubated. - Continue mechanical ventilation. - Sedation with fentanyl and midazolam. Avoid propofol due to hypotension. Hypotension, acute. - His blood pressure is borderline hypotensive with intermittently worsening hypotension, due to acute right heart failure from massive PE. He worsened with a fluid challenge. Per Dr. Lundberg, he would not benefit from further fluids given the nature of his heart failure. - Will consider inotropic support with dopamine if his blood pressure does not improve. - Minimize sedation as much as possible Acute iron deficiency anemia. - Secondary to hemodilution from aggressive fluid resuscitation. Possibly secondary to GI bleed from malignant gastric ulcers, but no sign of acute bleed at this time. He is at risk for further bleeding as he is receiving alteplase via EKOS. Hb dropped from 11.7 to 9 on admission. - PRBCs 5 U on hold. Transfuse for HB <8. - Check H&H q4h - PPI drip - Monitor for signs of acute bleeding Bilateral popliteal DVT - Pt diagnosed with bilateral large DVTs 3 weeks ago, placed on Lovenox. Whether his bilateral PEs on Lovenox should be considered failure of Lovenox is uncertain, as he had held Lovenox twice during the 3 weeks. Will discuss anticoagulation options with Dr. Suazo - Consult Dr. Suazo of Oncology - Continue heparin gtt Problems: Attending Statement I have seen and examined this patient with the resident physician. Vital signs , labs, imaging have been reviewed. I agree with the assessment and plan above. Please refer to my separately dictated progress note for any modifications to above. Rosa Mirza M.D. Pulmonary and Critical Care medicine Pager [phone] Chavez Mahajan Apr 03, 2017 17:24 Rosa Mirza MD Apr 04, 2017 07:31
--- NOTE | 2017-04-03 23:45 | NUR ---
Cardiac Pt has ekos to rt fem with tpa, heparin (1000 units/ml concentration) and NS coolant infusing, RT DP pulse faint, palpable, no s/s of bleeding, heparin gtt @ 600 units/hr infusing via PIV. HR 122 ST slowly going up to 128-130 ST, sbp mid 80's, Map>59. Dr. Ortiz notified of low BP with no new order. Report given to incoming RN (Daniel Lincoln) at midnight.
[2017-04-04] VITALS (15 sets, daily range): BP systolic 73–110; BP diastolic 40–67; PULSE 117–127; RESP 13–25; O2SAT 92–99
[2017-04-04] MEDS: fentaNYL 2,500 mCg/250 mL 2,500 MCG in IV Premix 1 EACH IV SCH ×3 (00:24→23:13)
[2017-04-04] MEDS: Alteplase (Cathflo) Inj 10 MG in 0.9% Sodium Chloride 250 ML IV SCH (00:34)
--- NOTE | 2017-04-04 01:10 | PROG NOTE ---
[address] [address] PROGRESS NOTE PATIENT: DREA PELAYO : 1990 MR#: [id number] ADMIT: 04/03/2017 JOB ID: [id number] DATE: 04/03/2017 HOSPITAL ROUNDS: This is a 27-year-old man who has been under evaluation by Oncology for the unusual development of multiple liver metastases from presumed primary gastric cancer and possibly associated with Peutz-Jeghers syndrome. He had been slated to start chemotherapy on . He had been under treatment with Lovenox for bilateral DVTs and unfortunately developed severe bilateral pulmonary emboli requiring the current hospitalization which happened this morning. Dr. Lundberg performed a procedure including an EKOS catheter placement in left lower lobe branch under fluoroscopy and catheter directed thrombolysis. It was considered too unsafe to do systemic thrombolysis as he has had a history of GI bleed and liver metastases, and considered the current method the most appropriate approach. The patient has not had an IVC filter placed. The thrombosis may be related to the fact the patient had held his Lovenox in anticipation of placement of a PICC line. IMAGING: CT angio today showing multiple large bilateral pulmonary emboli, flattening of the cardiac intraventricular septum suggesting right heart strain, and hepatic metastatic disease. Dr. Lundberg reports that a stat echocardiogram showed a markedly dilated right ventricle with depressed right ventricular function. Previous venous duplex on March 20, 2017, showed occlusive bilateral deep venous thrombosis involving the popliteal vein. The timeline for his original diagnosis of malignancy is as follows: Hospitalized March 06, 2017, for three episodes of hematemesis and some "maki pie filling appearing stools." He reported a previous history of a gastric ulcer and was previously seen at Urgent Care as noted in the H and P. At the time of hospitalization, he had hemoglobin 7.3 and hematocrit 23.6. EGD with biopsies on March 07, 2017, by Dr. Green showed an ulcerated highly polypoid mass in the gastric body and gastric and duodenal polyposis. There were irregular polypoid structures starting right at the GE junction that prolapsed up and down into the distal esophagus. Elevated liver enzymes led to an ultrasound on March 07 showing multiple hypoechoic masses in the liver, and hepatic protocol MRI on March 16 showed innumerable hepatic masses consistent with malignant neoplasm. Patient reported a family history of Peutz-Jeghers disease. He states his mother, with whom he is not in contact, has the condition, and that a maternal uncle also has the condition. We do not know whether they have been genetically tested, however. An STK11 genetic test was also ordered to test for Peutz-Jeghers and this is not back yet. On exam the patient did not have any of the typical melanotic lesions around the mouth or gingicva that would be seen with Peutz-Jeghers syndrome. The pathology from the EGD showed four separate lesions, none of which showed malignancy and none of which looked like the typical Peutz-Jeghers polyps as well. These were predominately hyperplastic polyps without any hematomatous features, but it was commented that the typical changes in polyps are not always seen in gastric polyps in patients with Peutz-Jeghers, but they felt that the features were not sufficient to make a diagnosis of Peutz-Jeghers. Subsequent to this hospitalization, the patient was stabilized and additional workup was attempted. He had significant pain making it difficult to perform procedures, and ultimately was able to have a liver biopsy but only under anesthesia because of his inability to lie flat. The liver biopsy was performed on March 23 under ultrasound guidance and showed poorly differentiated adenocarcinoma. Uniform cytokeratin 7 with rare cells cytokeratin 20 positive. CDX2, villin, TTF-1, ALEXANDRE-3 and Hep Par 1 were negative, so the differential diagnosis favored upper gastrointestinal or pancreatobiliary carcinoma, and SATB2 immunochemical stain was pending. The patient developed DVT of both lower extremities with edema. This was confirmed by Doppler on March 20, 2017, and he was placed on Lovenox without a filter being placed. A PET-CT scan was requested but not yet authorized by insurance; a CT was ultimately authorized to further characterize the chest, abdomen and pelvis for metastatic disease and this was to be performed the day before admission, but he was too sick to go to the CT scan. The patient is being consulted on by Dr. Michelle at [facility]. He was to go to that appointment at 08:30 this morning but was too sick having developed PE. I spoke with Dr. Michelle and indicated to her the events of the day and she is happy to see him when he is stabilized. The purpose of having a consultation at [facility] is that this is a very unusual case and even for Peutz-Jeghers, if that is what he has, developing cancer and metastatic cancer at this early age would be unusual. The consensus was that the patient should be started on systemic chemotherapy with oxaliplatin based regimen and he was to start on FOLFOX chemotherapy in two days. Subjectively, the patient is intubated now having developed respiratory failure due to his pulmonary emboli and is sedated. Further physical exam is also not performed. Some of this 30 minute visit was engaged in review of his case with Dr. Lundberg and conversation with his father who has been following the patient. The patient had refused to go to the hospital yesterday despite the fact the imploring by both his father and his sister who is a nurse. OBJECTIVE: His vital signs are stable with a temp of 37.2, pulse 121, respiratory rate 16, blood pressure 84/50, pulse ox 97%. LABORATORY VALUES: Show a white count of 20.8 with 86% neutrophils, hemoglobin 11.7, hematocrit 35.0, MCV 70, the patient has been on iron replacement, and platelets of 90. His chemistries show a sodium 124, potassium 5.0, chloride 82, CO2 22, BUN 22, creatinine 0.8, glucose 115. Bilirubin is 2.2, AST 251, ALT 99, alkaline phosphatase 543. These have been elevated since presentation and presumably related to his liver metastases. The CEA is elevated at 9.3 and CA19-9 is elevated at 71, normal being 35. Procalcitonin is elevated at 5.22 and the prealbumin is very low at 4. ASSESSMENT AND RECOMMENDATIONS: This is a 27-year-old man with metastatic adenocarcinoma presumably from stomach, who has developed a critical illness related to multiple bilateral pulmonary emboli, he is hypotensive with right heart strain, and he is currently under Dr. Lundberg's care for lysis by catheterization of bilateral emboli. It is likely that Dr. Lundberg will be successful and that the patient will improve, but he has severe illness related to his metastatic cancer. In terms of Peutz-Jeghers, it is not certain that he has this autosomal dominant condition. He does not have the typical hyperpigmented lesions that are seen in Peutz-Jeghers and the polyps were not pathognomonic of Peutz-Jeghers so we are waiting for the STK11 genetic testing to see if he has this condition. Even if he has this condition, the rate of cancer in patients with Peutz-Jeghers syndrome by age 40 is only about 20% and is very unusual to develop primary cancer, let alone metastatic cancer in the 20s, particularly with very little prior history except for possibility of a prior gastric ulcer. I did consult with Dr. Michlele and she indicated that as far as she knows that the response rates to chemotherapy and the type of chemotherapy that are used for metastatic adenocarcinoma in Peutz-Jeghers are not any different than that for other patients; and therefore, we elected to initiate chemotherapy with FOLFOX. We would certainly have to wait until the patient becomes stable and the patient will be presented to Tumor Board in the morning for further multidisciplinary input. I think that as sick as he is, he is young and very strong and he will recover from this event, and that the bigger issue is whether or not we can provide him with a meaningful treatment plan for his metastatic cancer that would afford him quality of life and a response. There is a clinical trial at [facility] which initiates with FOLFOX chemotherapy; it is called the Eligio (sic)ADDENDUM: trial and then randomizes patients to continue FOLFOX versus immune therapy. He is not eligible to initiate that now because he needs to start therapy sooner than would be appropriate for waiting for entering into that trial. I will follow this patient closely. ADDENDUM: patient was discussed at Tumor Board this morning, The pathologic specimens from the stomach and liver are being revciewed by Hematopathology. We also discussed the prois and cons of a filter; Dr. Rosa Mirza indicated that he only stopped one dose of lovenox, not four doses, and thus he is an anticoagulation failure and it would make sense to have a filter temporarily placed. [facility]
[2017-04-04] MEDS: Pantoprazole Inj 80 MG, Pharmacy To Mix 1 EA in 0.9% Sodium Chloride 80 ML IV SCH ×6 (03:00→23:13)
--- NOTE | 2017-04-04 05:09 | ABG ---
DateTimeAnalyzed 05:01:00 -_ pH ____7.431 - 7.350 7.450 pCO2 ___36.7__ -mmHg 35.0 45.0 pO2 ___71.5__ -mmHg 69.0 116 HCO3- ___24.0__ -mmol/L 22.0 26.0 ABE ____0.3__ -mmol/L -2.0 2.0 tHb ___10.2__ -g/dL 12.0 18.0 O2Hb ___91.3__ -% COHb ____1.5__ -% 0.0 1.5 MetHb ____1.0__ -% 0.4 1.5 sO2 ___93.6__ -% 25.0 FIO2 ___30.0__ -% PEEP ____5.0__ -cmH2O Set_RR ___12.0__ -b/min Vt __650.0__ -L Drawn By MK - Date/Time Notified____ 05:09:00 -_ Spontaneous_RR ___17.0__ -b/min Oxygen Device 1 VENTILATOR - Notified Whom DR BEUNING - B 759 -mmHg tO2 ___13.1__ -Vol% Yaakov test N/A -
[2017-04-04 05:54] LABS: BASOPHILS % (AUTO) 0.1 % (0-3); EOSINOPHILS % (AUTO) 0.1 % (0-5); MONOCYTES % (AUTO) 9.4 % (4-12); Mean Corpuscular Hemoglobin 23.2 pg (27.0-35.0); Mean Corpuscular Volume 72.9 fL (81-100); NEUTROPHILS % (AUTO) 83.4 % (40-74); Platelet Count 254 bil/L (150-400)
[2017-04-04 06:23] LABS: Magnesium 2.3 mg/dL (1.6-2.6); Phosphorus 2.6 mg/dL (2.5-4.9)
--- NOTE | 2017-04-04 07:16 | NUR ---
Sedation Assumed care of patient at 0015 from Zora Whiting RN. Pt anxious/agitated, sitting up in bed and moving legs around. Pt started on Propofol gtt at 15mcg/kg/minute for sedation. Ativan decreased from 5 to 4mg/hour. Fentanyl remains on at 200mcg/hour. Pt's RASS score -1 to -2 after adding propofol. Pt is still able to shake his head that yes he is in pain but that no it is not too much pain. Safe patient bedside RN-RN handoff performed.
--- NOTE | 2017-04-04 07:25 | OP ---
[address] [address] OPERATIVE REPORT PATIENT: DREA PELAYO : 1990 MR#: [id number] ADMIT: 04/03/2017 JOB ID: [id number] DATE OF SURGERY: 04/03/2017 SURGEON: Karishma Lundberg MD PREOPERATIVE DIAGNOSIS(ES): Massive bilateral pulmonary emboli with persistent hypotension. POSTOPERATIVE DIAGNOSIS(ES): Massive bilateral pulmonary emboli with persistent hypotension. PROCEDURE: Intrapulmonary artery thrombolysis via EKOS catheter. The patient remains hypotensive despite receiving catheter-directed thrombolysis to his left lung. tPA 5 mg bolus was then given via the EKOS catheter into the left pulmonary artery. MTDD
--- NOTE | 2017-04-04 08:57 | DRSVH ---
PROCEDURE: X-RAY CHEST ONE VIEW, PORTABLE ([id number]) INDICATIONS: intubated TECHNIQUE: One view of the chest was acquired. COMPARISON: [facility], CR, XR CHEST 1VW (PORTABLE), 04/03/2017, 10:25. FINDINGS: Surgical changes and devices: Left PICC tip at the RA/SVC junction. Stable ET and enteric tubes. Lungs and pleura: No pleural effusions or pneumothorax. Improving mild perihilar interstitial pulmon estefany opacities. Otherwise the lungs are clear. Mediastinum: Mediastinal contours appear normal. Heart size is normal. Bones and chest wall: No suspicious bony lesions. Overlying soft tissues appear unremarkable. IMPRESSION: Improving mild perihilar opacities. Stable support devices. Dictated by: New Powers M.D. on 04/04/2017 at 8:55 Approved by: New Powers M.D. on 04/04/2017 at 8:56
[2017-04-04 10:11] LABS: BASOPHILS % (AUTO) 0.2 % (0-3); EOSINOPHILS % (AUTO) 0.3 % (0-5); MONOCYTES % (AUTO) 9.6 % (4-12); Mean Corpuscular Hemoglobin 23.5 pg (27.0-35.0); Mean Corpuscular Volume 73.1 fL (81-100); Platelet Count 236 bil/L (150-400)
[2017-04-04] MEDS: Heparin 25K Unit/500mL 0.45 NS 25,000 UNIT in IV Premix 1 EACH IV SCH (10:13)
[2017-04-04] MEDS: Heparin Protocol Boluses IVPUSH PRN (10:14)
[2017-04-04] MEDS: Propofol Inj 1,000,000 MCG in IV Premix 1 EACH IV PRN ×3 (10:40→23:14)
--- NOTE | 2017-04-04 10:55 | PCM.PNMED ---
Subjective Date of Service Apr 04, 2017 Subjective ICU Progress Note Pt is a 27 year old male with a hx of metastatic gastric cancer with family history of Peutz-Jeghers syndrome, and adenocarcinoma of the stomach, bilateral DVTs and GI bleed 1 month ago who presented to the ED complaining of sudden onset shortness of breath with minimal exertion onset yesterday. Admitted for bilateral massive PE. Overnight, he maintained MAP in high 50s-60s without requiring further fluid or pressor support. Continued to receive TPA through EKOS and heparin gtt. Today he is sedated and intubated, on ativan gtt @ 4, fentanyl gtt @ 200. Exam Vital Signs Vital Sign - Last Date Time Temp Pulse Resp B/P Pulse Ox O2 Delivery O2 Flow Rate FiO2 04/04/17 08:28 Ventilator 04/04/17 07:22 37.1 122 18 104/65 96 30 04/04/17 04:23 4.00 Intake and Output 04/03/17 04/03/17 04/04/17 Cumulative From/Thru 15:00 23:00 07:00 04/03/17 07:34 - 04/04/17 06:00 Intake Total 2000 ml 2050 ml 1357 ml 5407 ml Output Total 1650 ml 1000 ml 2650 ml Balance 2000 ml 400 ml 357 ml 2757 ml Intake Oral 0 ml 0 ml IV Total 2000 ml 1699 ml 1357 ml 5056 ml Packed Cells 351 ml 351 ml Output Urine Total 1500 ml 750 ml 2250 ml Gastric Drainage Total 150 ml 250 ml 400 ml # Bowel Movements 0 0 Exam General: Sedated and intubated. No acute distress Head: Normocephalic, atraumatic. External ears normal. Eyes: PERRLA, EOMI. Anicteric sclerae. Mouth: Mouth normal, Mucous membranes moist/pink Neck: Neck supple with full range of motion. Chest& Lungs: Tachycardic. No murmurs, rubs, gallops. Cardiovascular: Clear to auscultation bilaterally. No wheezes, rales, rhonchi. Abdomen: Nontender, Somewhat firm but non-distended and not rigid, No masses, hypoactive bowel tones, Soft Extremities: Bilateral lower extremity moderate-severe edema. Neuro: Sedated and intubated. Lab and Diagnostics Result Diagram: 04/04/17 0938 04/04/17 0545 X-Rays, CTs and MRIs Chest x-ray Stable pulmonary venous engorgement and support devices. Dictated by: New Powers M.D. on 04/03/2017 at 11:01 CT angiogram 1. Multiple, bilateral large pulmonary emboli. 2. Flattening of the cardiac interventricular septum suggesting right heart strain. 3. Hepatic metastatic disease. 4. Findings telephoned to Dr. Nathan Paz on 04/03/17 at 0817 hrs. Dictated by: Louisa Jones MD, PhD on 04/03/2017 at 8:13 Chest x-ray 1. Endotracheal tube and nasogastric tube positioned as described. 2. Mild cardiomegaly and moderate vascular congestion. Dictated by: Tristin Mckenzie M.D. on 04/03/2017 at 9:55 Chest x-ray 1. Endotracheal tube is positioned at the thoracic inlet. 2. Mild cardiomegaly and vascular congestion is similar to the prior study. Dictated by: Tristin Mckenzie M.D. on 04/03/2017 at 10:03 Assessment & Plan Pt is a 27 year old male with a hx of metastatic gastric cancer with family history of Peutz-Jeghers syndrome, and adenocarcinoma of the stomach, bilateral DVTs and GI bleed 1 month ago who presented to the ED complaining of sudden onset shortness of breath with minimal exertion onset yesterday. Admitted for bilateral massive PE. Massive bilateral pulmonary emboli, acute. - Patient presents with massive bilateral PE in the context of metastatic gastric cancer and bilateral DVTs, on Lovenox for 3 weeks. His pulmonary emboli are causing significant right heart strain, with flatting of the interventricular septum on echo, as well as hemodynamic instability. He is at significant risk for acute GI bleed given his recent history of GI bleed from malignant ulcers. For these reasons, he is not a candidate for systemic thrombolytic therapy, so we will proceed with localized thrombolytic therapy via EKOS. He had only had 2 instances that family was aware of where he held Lovenox, both for 2 days, and is on a lower dose of Lovenox than would be considered a full prophylactic dose. Thus, this should not be considered a failure of Lovenox at this point. He will likely require a full dose of Lovenox on discharge. He may still benefit from an IVC given the large emboli that he has been throwing, but discussion of the risks and benefits is still in progress with Dr. Lundberg. - Continue thrombolytic therapy via EKOS. - Continue heparin gtt - Dr. Lundberg is following. We appreciate his expertise. - Pt taken to bottle labeler to switch EKOS to right pulmonary artery. - Considering possible IVC filter - will discuss with Dr. Lundberg - Will likely need to increase dose of Lovenox by discharge Obstructive shock secondary to right heart strain, acute. - Secondary to bilateral PE. He is hypotensive due to acute right heart failure from massive PE. He worsened with a fluid challenge. Per Dr. Lundberg, he would not benefit from further fluids given the nature of his heart failure. BP initially dropped on propofol, but then tolerated restarting propofol later in the night. - Will consider inotropic support with dopamine if his blood pressure does not improve. - Minimize sedation as much as possible Acute hypoxic respiratory failure. - Secondary to PE. Patient is sedated and intubated. Midazolam in short supply. Sedated with fentanyl and propofol, but previously became hypotensive with propofol. If hypotension is a further issue, wean off propofol. - Continue mechanical ventilation. - Sedation with fentanyl and propofol. Acute iron deficiency anemia. Stable. - Secondary to hemodilution from aggressive fluid resuscitation. Possibly secondary to GI bleed from malignant gastric ulcers, but no sign of acute bleed at this time. He is at risk for further bleeding as he is receiving alteplase via EKOS, but Hb has been stable at around 10 overnight. - PRBCs 5 U on hold. Transfuse for HB <8. - Check H&H q6h - PPI drip - Monitor for signs of acute bleeding Bilateral popliteal DVT - Pt diagnosed with bilateral large DVTs 3 weeks ago, placed on Lovenox. See above discussion on Lovenox. - Continue heparin gtt Metastatic liver cancer due to poorly differentiated adenocarcinoma. - Diagnosed 6 weeks ago. Biopsy of liver mets revealed poorly differentiated adenocarcinoma. Likely secondary to gastric carcinoma vs pancreatobiliary carcinoma. Possibly related to family history of Peutz-Jeghers syndrome, although less likely given pathology, per Dr. Suazo. - Dr. Suazo of Oncology Resuscitation Status: CPR: Attempt Resuscitation Attending Statement I have seen and examined this patient with the resident physician. Vital signs , labs, imaging have been reviewed. I agree with the assessment and plan above. Please refer to my separately dictated progress note for any modifications to above. Rosa Mirza M.D. Pulmonary and Critical Care medicine Pager [phone] Chavez Mahajan Apr 04, 2017 10:55 Rosa Mirza MD Apr 06, 2017 08:10
--- NOTE | 2017-04-04 11:32 | NUR ---
NUTRITION ASSESSMENT: ASSESS:27 YO male with a hx of metastatic gastric cancer with family history of Peutz-Jeghers syndrome, and adenocarcinoma of the stomach, bilateral DVTs and GI bleed 1 month ago presented to the ED complaining of sudden onset shortness of breath with minimal exertion onset yesterday. Admitted to CCU with bilateral massive PE. Overnight, he maintained MAP in high 50s-60s without requiring further fluid or pressor support. Continued to receive TPA through EKOS and heparin gtt. Today he is sedated and intubated, on ativan, fentanyl and propofol. PMHx:Metastatic gastric cancer, upper GI bleed 6 weeks ago, liver biopsy 1-1/2 weeks ago, Peutz-Jeghers syndrome, deep venous thrombosis of the lower extremities. DIET:NPO. LABS: Reviewed. Na 131, chloride 95, Cr 0.73, Glu 108, Ca 7.8, Total Bili 2.2, AST 196, ALT 85, Alk Phos 454, PAB 4, Procalcitonin 3.98. MEDICATIONS: Reviewed. TPA, ativan, fentanyl. Propofol restarted this morning related to agitation. NUTRITION FOCUSED PHYSICAL ASSESSMENT: GI symptoms / stool: No stool reported.Karlos: 13. Skin Integrity: No issues reported. ANTHROPOMETRICS: Current Wt: 81.0 kgBMI: 20.0 kg/m2. There has been no weight since his diagnosis was verified. IBW: 100 kg (81% IBW) ESTIMATED NEEDS (CANCER, UNDERWEIGHT): Calories: 2835 - 3240 kcal (30 - 35 kcal / kg BW) Protein: 122 - 146 g protein (1.5 - 1.8 g / kg BW) Fluid: Approx. 2835 mL (35 mL / kg BW) NUTRITION DIAGNOSIS: 1)Inadequate oral intake related to inability to consume sufficient energy, as evidenced by NPO / vent status. 2)Increased nutrient needs related to cancer and underweight status, as evidenced by 81% IBW. INTERVENTION: 1) In the event pt. unable to be extubated today, strongly recommend initiation of nutrition support. I am unable to ascertain from progress notes GI status due to gastric cancer; unable to recommend route of nutrition support until this information is documented. MONITOR/EVALUATE: NPO / vent status, labs, weight, nutritional status. Follow up per high nutrition risk guidelines. Addendum: 04/04/17 at [address] Mirza recommending initiation of enteral feeding. RN mentioned that patient's sister reported that the patient had throat swelling after supplementation with Ensure dietary supplement that he received from the [facility]. She reported that he is lactose intolerant; Ensure is generally suitable for patients with lactose intolerance. Other ingredients include CaHMB, plant based omega-3 ALA, vitamins C, E and selenium, prebiotic, vitamin D, calcium. Enteral formula recommendation is Jevity 1.5, which includes prebiotic but not the other ingredients mentioned above. In addition, it is suitable for patients with lactose intolerance. Recommend trophic feeding only for the first 24 hours, with close monitoring for signs of anaphylaxis. Recommend Jevity 1.5 at 10 mL/hr x 24 hr. Once tolerance and safety established, recommend advance 5 ml every 4 hr. to goal rate 85 mL/hr. Goal rate enteral feeding will provide 2805 kcal, 119 g protein, sufficient to meet approx. 100% kcal / 92% protein needs. Once enteral feeding tolerated, recommend add 1 packet ProSource liquid protein two times per day to meet 100% protein needs.
[2017-04-04] MEDS ORDERED: Heparin 10,000 Unit/1,000 mL NS Premix IV ONE (11:53)
[2017-04-04] MEDS ORDERED: 0.9% Sodium Chloride 1,000 ML ONE (11:55)
[2017-04-04] MEDS ORDERED: Heparin 1,000 Units/500 mL NS Premix IV ONE (11:55)
[2017-04-04] MEDS ORDERED: SODIUM CHLORIDE 0.9% IV SCH ×2 (12:05→12:40)
[2017-04-04] MEDS ORDERED: ALTEPLASE IV SCH ×2 (12:05→12:40)
--- NOTE | 2017-04-04 12:14 | NUR ---
Pt to powerhouse laborer for EKOS procedure. ST per court monitor. Pressure stable, MAP >65.
--- NOTE | 2017-04-04 12:26 | NUR ---
Inpatient Wound Nurse Patient seen for Pressure Injury Protocol. Patient was active, ambulatory prior to admit with no active wounds. Patient's primary nurse stated that no posterior open areas or evidence of skin breakdown noted. Mild erythema of lateral heels is blanchable. CWON floated heels and will reassess posterior planes and sacrum when patient is stable for turning. He is on P500. CWON will follow.
[2017-04-04] MEDS ORDERED: Heparin 1,000 Unit/mL 10 mL Inj ONE (12:36)
--- NOTE | 2017-04-04 12:50 | PROG NOTE ---
[address] [address] PROGRESS NOTE PATIENT: DREA PELAYO : 1990 MR#: [id number] ADMIT: 04/03/2017 JOB ID: [id number] DATE: 04/04/2017 PULMONARY CRITICAL CARE PROGRESS NOTE: The patient is a 27-year-old man with recently diagnosed metastatic gastric adenocarcinoma, bilateral lower extremity DVT, presenting with submassive pulmonary emboli. The patient was seen and evaluated with resident physician Chavez Mahajan DO. Please refer to his separate detailed note for additional information. The following is an attending note. INTERVAL HISTORY: Hemodynamically stable overnight, but agitated and difficult to sedate, so propofol was added to his current regimen of lorazepam and fentanyl for sedation. REVIEW OF SYSTEMS: Could not be obtained. PHYSICAL EXAMINATION: Vital signs reviewed. He is on minimal vent settings FiO2 of 35%, PEEP is 5. No fevers. General: Intubated sedated. Tall thin young man in no acute distress. Chest: Clear to auscultation. Heart: Regular rate, rhythm. Lower extremities have bilateral 2+ edema that is symmetric. LABORATORIES: Reviewed. WBC down to 14.9 from 16.4, hemoglobin 10.4, platelets 236. Chemistry also reviewed. Chest x-ray is normal. Arterial blood gas this morning shows pH of 7.43, pCO2 of 36, pO2 of 71, bicarb is 24. ASSESSMENT: 1. Acute submassive pulmonary emboli. 2. Acute hypoxic respiratory failure on mechanical ventilation since April 03. 3. Cardiogenic shock -- resolved. 4. Gastric adenocarcinoma stage 4 with liver metastases diagnosed February 2017, not yet on treatment. 5. Bilateral popliteal deep venous thrombosis. 6. A family history of Peutz-Jeghers syndrome. 7. History of GI bleed February 2017. RECOMMENDATIONS: This complex 27-year-old man with recent diagnosis of multiple medical issues as listed above presented with acute submassive pulmonary emboli yesterday for which he underwent EKOS catheter infusion of tPA yesterday. He had a period of hypotension yesterday evening which fortunately stabilized after an additional 5 mg of tPA was administered as a bolus. From a hemodynamic standpoint, he seems okay today. He is on three separate medications for sedation -- fentanyl, lorazepam, and propofol infusions, and I would like to get him off lorazepam and on propofol alone if his blood pressure tolerates this. He is going to have repeat EKOS procedure today with the catheter to the other pulmonary artery. I was informed by Dr. Lundberg that the catheter has multiple proximal ports which allow infusion directly into the right ventricle, so they will also be addressing the right ventricular thrombus. I did discuss this case with Dr. Bhagat at the [facility], who recommended against pulmonary embolectomy and continuing current therapy with EKOS, and considering systemic lytics if necessary if the patient becomes hypotensive again. With regards to the etiology of this pulmonary embolism, the best we can tell is that he was receiving 40 mg of Lovenox twice daily for his DVT. Likely this dose was reduced from therapeutic dose because of his recent GI bleed. Also there is some history of the patient being noncompliant with his Lovenox. All this might have resulted in his massive PE despite supposedly being on therapeutic anticoagulation. We need to discuss whether an IVC filter is appropriate before leaving the hospital as well. He is currently on heparin drip, PPI drip to prevent GI bleed while on anticoagulation, and lytics. CRITICAL CARE TIME: 50 minutes.
--- NOTE | 2017-04-04 13:43 | NUR ---
EKOS/cardiac/respiratory Pt returned from procedure. Continues in ST per extractor filler, HR 120s. Pressure stable, MAP maintained >65. Rt groin catheter secure, no sign of bleeding or hematoma. TPA verified with second RN at bedside. EKOS treatment initiated. TPA, heparin (1000 units/500cc) and NS coolant infsuing into rt groin site. Palpable, but weak bilateral pedal pulses. Heparin gtt infusing at 600 units/hr into left PICC line. Lowery to DD with pink tinged urine output. OG to CWS with clear green output. PRVC with 30% fi02 and peep of 5. Sp02 >92%. Will continue to monitor.
--- NOTE | 2017-04-04 14:03 | DI96 ---
[address] [address] PERIPHERAL CATHETERIZATION/INTERVENTION REPORT PATIENT: DREA PELAYO : 1990 MR#: [id number] ADMIT: 04/03/2017 JOB ID: [id number] PATIENT PROFILE: The patient is a 27-year-old male who has stage 4 metastatic gastric cancer. He presented with massive bilateral pulmonary emboli. PROCEDURE: EKOS catheter placement in the right main pulmonary artery. VASCULAR CLOSURE DEVICE: None. COMPLICATIONS: None. METHOD: The right groin was prepped and draped under standard sterile technique. The venous sheath was exchanged to a new sheath. A 5-German 3DRC catheter was used to direct a Glidewire into the main pulmonary artery. It was then exchanged to a [employer] Advantage wire and this wire was directed into the right main pulmonary artery. It was exchanged to an EKOS catheter with a treatment length of 12 cm. This was secured in situ. The patient was transferred to the intensive care unit in stable condition. FLUOROSCOPY TIME: 2.4 minutes. RESULTS: 1. Successful EKOS catheter placement in the right main pulmonary artery. 2. Catheter-directed thrombolysis to the right coronary artery was initiated.
[2017-04-04] MEDS: LORazepam 100 mg/100 mL NS 100 MG in IV Premix 1 EACH IV SCH (14:38)
--- NOTE | 2017-04-04 16:23 | PCM.PNMED ---
Subjective Date of Service Apr 04, 2017 Subjective Overnight the patient stabilized with 1 unit of PRBCs. His map remained in the 60-70 region. Versed was taken off as we are out of this medication in the hospital. It is temporally switched to Ativan which did not sedate the patient sufficiently. He was then switched to propofol remains on this morning along with fentanyl. Exam Vital Signs Vital Sign - Last Date Time Temp Pulse Resp B/P Pulse Ox O2 Delivery O2 Flow Rate FiO2 04/04/17 15:57 Ventilator 04/04/17 15:55 37.5 118 18 100/52 95 04/04/17 15:15 30 04/04/17 04:23 4.00 Intake and Output 04/03/17 04/03/17 04/04/17 Cumulative From/Thru 15:00 23:00 07:00 04/03/17 07:34 - 04/04/17 06:00 Intake Total 2000 ml 2050 ml 1357 ml 5407 ml Output Total 1650 ml 1000 ml 2650 ml Balance 2000 ml 400 ml 357 ml 2757 ml Intake Oral 0 ml 0 ml IV Total 2000 ml 1699 ml 1357 ml 5056 ml Packed Cells 351 ml 351 ml Output Urine Total 1500 ml 750 ml 2250 ml Gastric Drainage Total 150 ml 250 ml 400 ml # Bowel Movements 0 0 Exam General: Sedated age-appropriate male HEENT: JVD noted with patient lying flat Lymph: No lymphadenopathy Cardio: Tachycardia with regular rhythm no murmurs rubs or gallops Respiratory: CTA bilaterally Abdomen: Soft, positive bowel sounds, no injection sites identified Extremities: Bilateral pitting edema, dorsal pulses intact Psych: Sedated Neuro: Sedated Skin: No rash IVs and Medications Medications Reviewed: Medications were reviewed in detail Lab and Diagnostics Result Diagram: 04/04/17 1430 04/04/17 0545 X-Rays, CTs and MRIs Chest x-ray Stable pulmonary venous engorgement and support devices. Dictated by: New Powers M.D. on 04/03/2017 at 11:01 CT angiogram 1. Multiple, bilateral large pulmonary emboli. 2. Flattening of the cardiac interventricular septum suggesting right heart strain. 3. Hepatic metastatic disease. 4. Findings telephoned to Dr. Nathan Paz on 04/03/17 at 0817 hrs. Dictated by: Louisa Jones MD, PhD on 04/03/2017 at 8:13 Chest x-ray 1. Endotracheal tube and nasogastric tube positioned as described. 2. Mild cardiomegaly and moderate vascular congestion. Dictated by: Tristin Mckenzie M.D. on 04/03/2017 at 9:55 Chest x-ray 1. Endotracheal tube is positioned at the thoracic inlet. 2. Mild cardiomegaly and vascular congestion is similar to the prior study. Dictated by: Tristin Mckenzie M.D. 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 pulmonary embolism from bilateral popliteal DVT's with high clot burden and right ventricular failure; present on admission; ongoing -Recent ultrasound shows bilateral popliteal DVTs which are the likely primary source; unsure patient was on Lovenox prior to his shortness of breath -Echo demonstrated right ventricular and atrial dilation -EKOS initiated by Dr. Olguin; additional 5 mg TPA push given through a catheter on 04/03/17 -Heparin increased PE treatment -Catheter will be re-situated into the right pulmonary artery -Currently sedated on Ativan and fentanyl Obstructive shock; stable -Patient is currently stable -We will likely improve as the clot was broken up by EKOS -Patient initially given 500 mL bolus without much effect and 1 unit PRBC -The patient declines may consider use of dopamine 5mcg/kg/min infusion through PICC line or phenylephrine Acute hypoxic respiratory failure; present on admission; ongoing -Patient is currently intubated and then will be managed by pulmonology -Initial blood gas showed mixed alkalosis; resolved Acute blood loss anemia with possible GI bleed; present on admission; ongoing -Patient's hematocrit dropped 10 points and 7 hours -Recent GI bleed second to gastric ulceration -Patient started on protonics drip -H/H holding steady with a crit of greater than 30 -4 units PRBCs on hold Acute leukocytosis; present on admission; resolving -There is no recent complaints per family of infectious symptoms -White count was elevated greater than 20,000 and elevation of procalcitonin to 5.22 -White count and focal stone or trending down without antibiotics Stage IV poorly differentiated adenocarcinoma; present admission; ongoing -Peripheral reports the patient's activity has declined severely -Patient is on high-dose opiates to control severe pain -Patient was to have a port placed this is obviously being deferred for the moment -Dr. Suazo's office has seen the patient and left a very detailed and informed of note -After patient is discharged he will likely be placed on FOLFOX Status: pt is stable for most of the day and undergoing additional EKOS treatment for his PE. There was a question about lovenox compliance as well as being subtherapeutic.This will all be worked out prior to discharge. For the current time, it is anticipated that the patient will remain sedated until EKOS is completed., Full code Pain Evaluation: Adequate Pain Control Resuscitation Status: CPR: Attempt Resuscitation Attending Statement The patient was seen and examined together with on April 04 and I agree with the history, exam findings, and plan as outlined in the note above. I did participate in all aspects of the services provided today, including documentation and the plan of care. The patient continues EKOS today. We will then resume a heparin drip per protocol after EKOS infusion is complete. Met with patient's father explaining the situation. We will also confirm his outpatient dose of Lovenox which appears to be unclear at this time. Adrian Qiu DO Apr 04, 2017 16:23 Yaakov Fabian MD Apr 05, 2017 13:32
--- NOTE | 2017-04-04 17:23 | NUR ---
Cardiac/sedation Ativan off, Propofol infusing at 15mcg/
--- NOTE | 2017-04-04 17:24 | NUR ---
Cardiac/sedation Ativan off. Propofol infusing at 10mcg/kg/min and fentanyl 175mcg/hr for pain management and ventilator tolerance. Blood pressure trending down despite decrease in sedation, MAPs low 60s. ST per equipment monitor phototypesetting, HR 120s. Lowery to DD with approx 500cc out this shift. EKOS procedure continued. No sign of active bleeding at groin site. Trickle tube feedings initiated, Jevity 1.5 running at 10cc/hr with 40cc H20 flushes q 4hrs. Dr Qiu notified of patient pressure and urine output, awaiting new orders.
[2017-04-04] MEDS ORDERED: Chlorhexidine 0.12% 15 mL Oral Solution MT PRN (17:45)
[2017-04-04] MEDS ORDERED: 0.9% Sodium Chloride 250 ML IV ONE (17:50)
[2017-04-04 21:39] LABS: APPEARANCE,URINE TURBID (CLEAR,HAZY); COLOR,URINE DARK YELLOW (YELLOW); OCCULT BLOOD,URINE NEGATIVE (NEGATIVE); PH,URINE 5.5 (5.0-8.0); UROBILINOGEN,URINE NORMAL (NORMAL)
[2017-04-04 21:40] LABS: ICTOTEST,URINE POSITIVE (Negative)
[2017-04-05] VITALS (16 sets, daily range): BP systolic 81–110; BP diastolic 38–64; PULSE 114–123; RESP 21–29; O2SAT 92–100
--- NOTE | 2017-04-05 00:01 | PROG NOTE ---
[address] [address] PROGRESS NOTE PATIENT: DREA PELAYO : 1990 MR#: [id number] ADMIT: 04/03/2017 JOB ID: [id number] DATE: 04/04/2017 HOSPITAL ROUNDS: This is a 27-year-old man in the hospital for bilateral pulmonary emboli with cardiogenic shock, now improved after EKOS catheter treatment; the treatment on the left side was completed and the catheter was repositioned in the right pulmonary artery, and he is being treated today with local catheter directed thrombolysis. I note that Dr. Mirza also saw the patient and his managing his pulmonary status, and indicated that in the conversation with Dr. Bhagat at [facility] that if the patient goes back into cardiogenic shock he may need systemic thrombolysis, but that the current plan is in place for the time being. Two important points are that his father reports that the patient had missed a whole day of Lovenox on Sunday, the day before he developed a pulmonary embolism. In other words, his last dose of Lovenox was Sunday. On Sunday, he did not take Lovenox, and in the early hours of Sunday morning he was admitted for his pulmonary embolism. The other issue is that he was only on 40 mg twice daily of Lovenox, this was half the dose that I had originally prescribed him, and we I will have to find out when he changed the dose. This was presumably reduced due to his GI bleeding, but it should be noted that between the time he started Lovenox on March 20 and the time he was admitted, he did do reasonably well maintaining hematocrit, although likely continuing to have low-grade GI bleeding. His underlying disease is multiple liver metastases, biopsy proven adenocarcinoma likely from a stomach primary. The full extent of his disease has not been identified, but he clearly has a hypercoagulable state. Due to his own patient issues he has been unable to have a CT or PET-CT scan to define the extent of his disease. Subjectively, he is appearing comfortable on the respirator. He does understand what the conversation between myself and his father is about; for example, when I mentioned PET-CT scan he shook his hand in disapproval, understandably because he has severe back and side pain when he has to lie down for a scan, and had to be anesthetized for the scan for liver biopsy. Other than that, he appears reasonably comfortable, opens his eyes periodically, seemingly understanding conversation, and seemingly reasonably comfortable. OBJECTIVE: His ventilator settings are said be minimal by Dr. Mirza. His vital signs show a temperature of 37.5, pulse 118, respiratory rate 18, blood pressure 100/52 which is improved, pulse ox 95% on mechanical ventilator with FiO2 to 30%. Head and neck: He has no obvious oral mucosal lesions. He has no conjunctivitis. No icterus. Lung irwin are clear, auscultated anteriorly. Cardiac: Somewhat bounding precordium. Regular rate and rhythm. Abdomen: Soft, nontender with active bowel sounds. Extremities: 2 to 3+ edema. IMAGING: Chest x-ray shows improving mild perihilar opacities. LABORATORY VALUES: White count is improved to 14.9 with a neutrophilic leukocytosis with 82%, hemoglobin 10.4, hematocrit 32.4, MCV still microcytic at 73.1, platelets 236. BUN and creatinine are 18 and 0.73, sodium 131 improved, potassium 4.5, chloride 95, CO2 23, calcium 7.8, albumin 2.5, prealbumin of 4 extremely low. ALT is slightly improved at 85, AST slightly improved at 196, alkaline phosphatase slightly improved at 454, bilirubin stable at 2.2. ASSESSMENT AND RECOMMENDATIONS: Clearly this is a very complicated patient with major cardiovascular and pulmonary complications that are being managed by Dr. Lundberg and Dr. Mirza. From an Oncology standpoint, the goal of initiating him on systemic therapy for metastatic adenocarcinoma will have to wait until he is more stable; as long as he has extensive metastatic disease, which is apparently aggressive disease, he will continue to be hypercoagulable. The issue of a filter was discussed at [facility] this morning; the argument for a filter is that there is probably very little downside if it can be removed as long as it can be placed safely after the thrombolysis catheter is removed. Dr. Chavez indicated that she prefers to introduce it through the jugular vein rather than through the groin. The downside is that the patient was not therapeutically anticoagulated with Lovenox, at some point he changed his dose from 80, which was the original dose that I recommended and prescribed, to 40 mg twice daily, so it was not a full therapeutic doses, and he was off Lovenox for more than 24 hours, no doses since Sunday according to his father whom I discussed with him today. So the pulmonary embolism occurred in the setting of stopping Lovenox and having been on a 40 rather than 80 mg dose for at least several days. Nonetheless, he has a large fungating GI lesion which bled significantly and he is likely to bleed again. Nonetheless, given the fact that he was relatively stable on Lovenox initially and the fact that he also has extensive peripheral edema which will simply be worsened with a filter, I think that we need to be very cautious about my previous recommendation to introduce a filter, and I think that Dr. Mirza's and Dr. Lundberg's opinions are important in this, but at this point, I would be very cautious about introducing a filter given that history. I will follow him on a daily basis. Hopefully, he will reach a point of stability where he can receive cancer treatments. This is a very young individual who has never been treated for cancer and has the potential of a significant response to treatment.
--- NOTE | 2017-04-05 01:00 | NUR ---
Walked toward patient room I heard the vent alarm start to go off, the nursed stepped out before i reached the room and said the patient was breathing "weird". I notice the patient was disconnected and immediately reconnected the patient. His sats did not drop his RR went down to 20 from 28. No distress was noted. Patient restraints were tied tighter so he was unable to reach the tubing. Addendum: 04/06/17 at 0101 by BALWINDER MONTES [facility] Late entry for 04/05/2017. Amend
--- NOTE | 2017-04-05 01:54 | ABG ---
DateTimeAnalyzed 01:45:45 -_ pH ____7.483 - 7.350 7.450 pCO2 ___33.1__ -mmHg 35.0 45.0 pO2 ___52.0__ -mmHg 69.0 116 HCO3- ___24.8__ -mmol/L 22.0 26.0 ABE ____1.2__ -mmol/L -2.0 2.0 tHb ___10.3__ -g/dL 12.0 18.0 O2Hb ___86.7__ -% COHb ____2.4__ -% 0.0 1.5 MetHb ____0.0__ -% 0.4 1.5 sO2 ___88.7__ -% FIO2 ___30.0__ -% PEEP ____5.0__ -cmH2O Set_RR 12 -b/min Vt __600.0__ -L Drawn By MK - Date/Time Notified____ 01:54:00 -_ Spontaneous_RR 16 -b/min Oxygen Device 1 VENTILATOR - Notified By MK - Notified Whom Daniel Luna RN - K+ ____4.5__ -mmol/L 3.5 5.0 tO2 ___12.5__ -Vol% Yaakov test _Positive -
--- NOTE | 2017-04-05 04:33 | ABG ---
DateTimeAnalyzed 04:25:23 -_ pH ____7.473 - 7.350 7.450 pCO2 ___34.1__ -mmHg 35.0 45.0 pO2 ___71.3__ -mmHg 69.0 116 HCO3- ___25.0__ -mmol/L 22.0 26.0 ABE ____1.3__ -mmol/L -2.0 2.0 tHb ___10.0__ -g/dL 12.0 18.0 O2Hb ___93.9__ -% COHb ____1.7__ -% 0.0 1.5 MetHb ____0.0__ -% 0.4 1.5 sO2 ___95.2__ -% FIO2 ___50.0__ -% PEEP ____8.0__ -cmH2O Set_RR 12 -b/min Vt __580.0__ -L Drawn By AF - Date/Time Notified____ 04:33:00 -_ Oxygen Device 1 VENTILATOR - K+ ____4.5__ -mmol/L 3.5 5.0 tO2 ___13.2__ -Vol% Yaakov test _Positive -
[2017-04-05 04:43] LABS: BASOPHILS % (AUTO) 0.3 % (0-3); EOSINOPHILS % (AUTO) 0.3 % (0-5); MONOCYTES % (AUTO) 8.8 % (4-12); Mean Corpuscular Hemoglobin 23.8 pg (27.0-35.0); NEUTROPHILS % (AUTO) 82.1 % (40-74); Platelet Count 212 bil/L (150-400)
--- NOTE | 2017-04-05 06:13 | NUR ---
Sedation/Vent Settings Pt continues to be difficult to maintain a RASS of -1 to -2. Propofol at 13mcg/kg/minute, and Fentanyl at 250mcg/hour. Pt's BP has been borderline between a MAP of 55 and 65. Pt maintained a SpO2 of 87-89% for a few hours during the night; ABG ordered/done showing low pO2. Order received from Dr. Ortiz to increase FiO2 to 50%, increase Peep from +5 to +8, and to decrease vT from 600 to 580. Repeat ABG showed improvement. SpO2 maintaining at 93%. The patient's father (Roberto) stayed at the bedside the entire night. Roberto increasingly anxious everytime the patient moves, coughs, the ventilator chimes or a pump beeps.
--- NOTE | 2017-04-05 07:29 | NUR ---
Status/cardiac/respiratory Rt venous sheath secure, no sign of active bleeding. Pulses intact. Heparin gtt infusing per DVT protocol. 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 MAP > 60. Pt nodding to questions asked. Restless, moving BLE in bed. Propofol and fentanyl gtt continued for sedation and pain management. Continues on PRVC. Sp02 93 to 95%. Overbreathing ventilator, RR mid 20s. Family remains at bedside. Will continue to monitor.
[2017-04-05 08:24] LABS: INR 1.16 ratio
[2017-04-05] MEDS ORDERED: Albumin 25% 25 GM in IV Premix 1 EACH IV ONE ×2 (08:25→15:25)
--- NOTE | 2017-04-05 08:58 | DRSVH ---
PROCEDURE: X-RAY CHEST ONE VIEW, PORTABLE ([id number]) INDICATIONS: intubated TECHNIQUE: One view of the chest was acquired. COMPARISON: [facility], CR, XR CHEST 1VW (PORTABLE), 04/04/2017, 3:59. [facility], CR, XR CHEST 1VW (PORTABLE), 04/03/2017, 10:25. [facility], CR, XR CHEST 1VW (PORT ABLE), 04/03/2017, 10:25. FINDINGS: Surgical changes and devices: Tubes and catheters are in stable and expected position. Lungs and pleura: No pleural effusions or pneumothorax. Increased mild patchy bibasilar opacity is p resent. Mediastinum: Mediastinal contours appear normal. Heart size is normal. Bones and chest wall: No suspicious bony lesions. Overlying soft tissues appear unremarkable. IMPRESSION: Increased bibasilar atelectasis versus pneumonia. Dictated by: Landon Noel M.D. on 04/05/2017 at 8:56 Approved by: Landon Noel M.D. on 04/05/2017 at 8:56
[2017-04-05] MEDS ORDERED: Chlorhexidine 0.12% 473 mL Oral Solution MUC_MEMBRM PRN (09:30)
--- NOTE | 2017-04-05 09:40 | ABG ---
DateTimeAnalyzed 09:30:39 -_ pH ____7.374 - 7.320 7.420 pCO2 ___43.4__ -mmHg 41.0 51.0 pO2 ___33.2__ -mmHg 24.0 40.0 HCO3- ___25.3__ -mmol/L 22.0 26.0 ABE ____0.1__ -mmol/L -2.0 2.0 tHb ____9.7__ -g/dL 12.0 18.0 O2Hb ___55.9__ -% COHb ____1.7__ -% 0.0 1.5 MetHb ____0.4__ -% 0.4 1.5 sO2 ___57.1__ -% FIO2 ___80.0__ -% Drawn By NSG - Date/Time Notified____ 09:40:00 -_ Spontaneous_RR 25 -b/min Oxygen Device 1 VENTILATOR - Notified By RC - Notified Whom ___PARIMI - K+ ____4.2__ -mmol/L 3.5 5.0 tO2 ____7.6__ -Vol% Yaakov test N/A -
--- NOTE | 2017-04-05 09:54 | NUR ---
NUTRITION FOLLOW-UP: ASSESS:27 YO male with a recent hx of metastatic gastric cancer with family history of Peutz-Jeghers syndrome, and adenocarcinoma of the stomach, bilateral DVTs and GI bleed 1 month ago presented to the ED complaining of sudden onset shortness of breath with minimal exertion onset yesterday. Admitted to CCU with bilateral submassive PE. Today he remains sedated and intubated, on fentanyl and propofol, status post EKOS. He was briefly hypotensive, which resolved without pressor support. Trophic enteral feeding initiated yesterday, with no issues reported; advancement will begin late morning. PMHx:Metastatic gastric cancer, upper GI bleed 6 weeks ago, liver biopsy 1-1/2 weeks ago, Peutz-Jeghers syndrome, deep venous thrombosis of the lower extremities. DIET:NPO. ENTERAL FEEDING: Jevity 1.5 rate currently 10 mL/hr; will be advanced late morning 5 ml every 4 hr. to goal rate 85 mL/hr. Goal rate enteral feeding will provide 2805 kcal, 119 g protein, sufficient to meet approx. 100% kcal / 92% protein needs. Once enteral feeding tolerated, recommend add 1 packet [employer] liquid protein two times per day to meet 100% protein needs. LABS: Reviewed. Na 133, Cr 0.62, Glu 108, A1c 5.5, Ca 7.7, Total Bili 2.5, AST 343, ALT 113, Alk Phos 434, PAB 4. MEDICATIONS: Reviewed. Albumin, fentanyl. Propofol rate currently 7.3 mL/hr, providing 193 lipid kcal. NUTRITION FOCUSED PHYSICAL ASSESSMENT: GI symptoms / stool: No stool reported.Karlos: 13. Skin Integrity: No issues reported. ANTHROPOMETRICS: Current Wt: 81.0 kgBMI: 20.0 kg/m2. Pt. has not been reweighed since admission. There has been no weight loss since his diagnosis was verified. IBW: 100 kg (81% IBW) ESTIMATED NEEDS (CANCER, UNDERWEIGHT): Calories: 2835 - 3240 kcal (30 - 35 kcal / kg BW) Protein: 122 - 146 g protein (1.5 - 1.8 g / kg BW) Fluid: Approx. 2835 mL (35 mL / kg BW) NUTRITION DIAGNOSIS: 1)Inadequate oral intake related to inability to consume sufficient energy, as evidenced by NPO / vent status - PERSISTS. 2)Increased nutrient needs related to cancer and underweight status, as evidenced by 81% IBW - PERSISTS. INTERVENTION: 1) No further interventions at this time. MONITOR/EVALUATE: NPO / vent status, enteral feeding tolerance, labs, weight, nutritional status. Follow up per high nutrition risk guidelines.
--- NOTE | 2017-04-05 10:55 | PCM.PNMED ---
Subjective Date of Service Apr 05, 2017 Subjective ICU Progress Note Pt is a 27 year old male with a hx of metastatic gastric cancer with family history of Peutz-Jeghers syndrome, and adenocarcinoma of the stomach, bilateral DVTs and GI bleed 1 month ago who presented to the ED complaining of sudden onset shortness of breath with minimal exertion onset yesterday. Admitted for bilateral massive PE. Overnight he was hypotensive, with MAP 55-65. pO2 decreased to about 88% overnight, but improved to low 90s once FiO2 and PEEP were increased. Today he is awake, follows, commands, and answers questions, although he keeps his eyes closed. He does not have any complaints at this time. Exam Vital Signs Vital Sign - Last Date Time Temp Pulse Resp B/P Pulse Ox O2 Delivery O2 Flow Rate FiO2 04/05/17 07:41 37.1 123 23 97/63 93 50 04/05/17 04:47 Mechanical Ventilator 04/04/17 04:23 4.00 Intake and Output 04/04/17 04/04/17 04/05/17 Cumulative From/Thru 15:00 23:00 07:00 04/03/17 07:34 - 04/05/17 06:00 Intake Total 1033 ml 1661 ml 8101 ml Output Total 750 ml 450 ml 3850 ml Balance 283 ml 1211 ml 4251 ml Intake Oral 0 ml 0 ml IV Total 1033 ml 1403 ml 7492 ml Tube Feeding 138 ml 138 ml Packed Cells 351 ml Tube Irrigant 120 ml 120 ml Output Urine Total 550 ml 450 ml 3250 ml Gastric Drainage Total 200 ml 600 ml # Bowel Movements 0 0 Exam General: Alert and oriented. No acute distress Head: Normocephalic, atraumatic. External ears normal. Eyes: PERRLA, EOMI. Anicteric sclerae. Mouth: Mouth normal, Mucous membranes moist/pink Neck: Neck supple with full range of motion. Chest& Lungs: Tachycardic. No murmurs, rubs, gallops. Cardiovascular: Clear to auscultation bilaterally. No wheezes, rales, rhonchi. Abdomen: Nontender, Somewhat firm but non-distended and not rigid, No masses, hypoactive bowel tones, Soft Extremities: Bilateral lower extremity moderate-severe edema. Neuro: Alert and oriented. Does not open eyes but responds appropriately by nodding his head. Lab and Diagnostics Result Diagram: 04/05/17 0815 04/05/17 0430 X-Rays, CTs and MRIs Chest x-ray Stable pulmonary venous engorgement and support devices. Dictated by: New Powers M.D. on 04/03/2017 at 11:01 CT angiogram 1. Multiple, bilateral large pulmonary emboli. 2. Flattening of the cardiac interventricular septum suggesting right heart strain. 3. Hepatic metastatic disease. 4. Findings telephoned to Dr. Nathan Paz on 04/03/17 at 0817 hrs. Dictated by: Louisa Jones MD, PhD on 04/03/2017 at 8:13 Chest x-ray 1. Endotracheal tube and nasogastric tube positioned as described. 2. Mild cardiomegaly and moderate vascular congestion. Dictated by: Tristin Mckenzie M.D. on 04/03/2017 at 9:55 Chest x-ray 1. Endotracheal tube is positioned at the thoracic inlet. 2. Mild cardiomegaly and vascular congestion is similar to the prior study. Dictated by: Tristin Mckenzie M.D. on 04/03/2017 at 10:03 Assessment & Plan Pt is a 27 year old male with a hx of metastatic gastric cancer with family history of Peutz-Jeghers syndrome, and adenocarcinoma of the stomach, bilateral DVTs and GI bleed 1 month ago who presented to the ED complaining of sudden onset shortness of breath with minimal exertion onset yesterday. Admitted for bilateral massive PE. Massive bilateral pulmonary emboli with obstructive shock, acute. Improving. - Patient presents with massive bilateral PE in the context of metastatic gastric cancer and bilateral DVTs, on subtherapeutic Lovenox for 3 weeks. He was hypotensive due to acute right heart failure from massive PE. He is no longer hemodynamically unstable, although he has been somewhat hypotensive overnight. Will repeat echo s/p EKOS to evaluate for change in RV strain. - Treatment with EKOS complete - Continue heparin gtt - switching to PE/DVT protocol - Echocardiogram ordered - Will consider inotropic support with dopamine if his blood pressure does not improve. - Minimize sedation as much as possible - Considering possible IVC filter - will discuss with Dr. Lundberg - Will eventually transition to full dose (80 mg BID) Lovenox - Dr. Lundberg is following. We appreciate his expertise. Acute hypoxic respiratory failure. - Secondary to PE. Sedated with fentanyl and propofol. If hypotension is a further issue, wean off propofol. Anxiety is a significant issue at this time, so it is difficult to wean from sedation. His oxygen requirements increased overnight, which may be due to evolving V/Q mismatch with lysis of the pulmonary emboli and movement of clot into smaller vessels. Will continue to monitor. - Continue mechanical ventilation. - Sedation with fentanyl and propofol. Acute iron deficiency anemia. Stable. - Secondary to hemodilution from aggressive fluid resuscitation. Possibly secondary to GI bleed from malignant gastric ulcers, but no sign of acute bleed at this time. Hb has been stable, so will switch from PPI drip to BID. - PRBCs on hold. Transfuse for HB <8. - Check H&H daily - Protonix 40 mg IV BID - Monitor for signs of acute bleeding Bilateral popliteal DVT - Pt diagnosed with bilateral large DVTs 3 weeks ago, placed on Lovenox. See above discussion on Lovenox. - Continue heparin gtt Metastatic liver cancer due to poorly differentiated adenocarcinoma. - Diagnosed 6 weeks ago. Biopsy of liver mets revealed poorly differentiated adenocarcinoma. Likely secondary to gastric carcinoma vs pancreatobiliary carcinoma. Possibly related to family history of Peutz-Jeghers syndrome, although less likely given pathology, per Dr. Suazo. - Dr. Suazo of Oncology is following. We appreciate his input. Chronic back pain - Patient has severe cancer-related back pain that is exacerbated with laying flat. His family reports it is to the point that he becomes severely agitated and combative if forced into a flat supine position without adequate pain coverage, and as such he would have severe difficulty with any procedure without adequate sedation. The family's main concern is adequate opiate coverage when the patient is weaned off of fentanyl gtt and extubated eventually. We assured the family that we would continue to update them closely with any changes in care. He will need larger doses of opiates given his tolerance. Per his sister, he requires at least 10-15 morphine equivalents to control his pain (eg Dilaudid 1-2 mg). - Will need to treat pain aggressively after weaning fentanyl - Continue to update family regularly regarding medical plan. Resuscitation Status: CPR: Attempt Resuscitation Attending Statement I have seen and examined this patient with the resident physician. Vital signs , labs, imaging have been reviewed. I agree with the assessment and plan above. Please refer to my separately dictated progress note for any modifications to above. Rosa Mirza M.D. Pulmonary and Critical Care medicine Pager [phone] Chavez Mahajan Apr 05, 2017 10:55 Rosa Mirza MD Apr 06, 2017 08:16
[2017-04-05] MEDS: Polyethylene Glycol (PEG) 17 Gm Powder PO SCH (11:04)
[2017-04-05] MEDS: fentaNYL 2,500 mCg/250 mL 2,500 MCG in IV Premix 1 EACH IV SCH ×2 (11:44→19:50)
[2017-04-05] MEDS: Propofol Inj 1,000,000 MCG in IV Premix 1 EACH IV PRN ×2 (11:45→19:53)
[2017-04-05] MEDS ORDERED: 0.9% Sodium Chloride 500 ML IV ONE (11:55)
--- NOTE | 2017-04-05 12:03 | PROG NOTE ---
[address] [address] PROGRESS NOTE PATIENT: DREA PELAYO : 1990 MR#: [id number] ADMIT: 04/03/2017 JOB ID: [id number] DATE: 04/05/2017 PULMONARY CRITICAL CARE PROGRESS NOTE: The patient is a 27-year-old man with recently diagnosed metastatic gastric adenocarcinoma, bilateral lower extremity DVT presenting with submassive pulmonary emboli. The patient was seen and evaluated with resident physician, Chavez Mahajan. Please refer to his separate detailed note for additional information. The following is a brief attending note. INTERVAL HISTORY: He had finished a second round of EKOS with lytic therapy last night. His PTT has been subtherapeutic in the 30s despite ongoing heparin drip. REVIEW OF SYSTEMS: Unable to obtain since he is intubated. PHYSICAL EXAMINATION: Vital signs reviewed. T-max 38. Oxygenation worsened overnight and he is currently on 80% FiO2 and 10 cm of PEEP. General: Intubated, sedated moving a little but not following commands. Chest clear to auscultation. LABORATORIES: Reviewed. WBC 13.8, down from 14.9, hemoglobin stable. Chemistry also reviewed. LFTs continue to rise. Chest x-ray relatively clear pulmonary parenchyma. ET tube is in appropriate position. Arterial blood gas shows pH of 7.47, pCO2 of 34, pO2 of 71, bicarbonate 25. ASSESSMENT AND RECOMMENDATIONS: 1. Acute submassive pulmonary emboli status post EKOS therapy x2. 2. Acute hypoxic respiratory failure on mechanical ventilation since April 03. 3. Cardiogenic shock -- resolved. 4. Gastric adenocarcinoma stage IV with liver metastases diagnosed February 2017, not yet on treatment. 5. Bilateral popliteal deep venous thrombosis diagnosed February 2017. 6. Family history of Peutz-Jeghers syndrome. 7. History of GI bleed February 2017. A complex 27-year-old man with recently diagnosed metastatic gastric adenocarcinoma, with liver lesions who initially presented in February with a GI bleed and bilateral DVTs, now readmitted with submassive pulmonary emboli. He is intubated and has received two days of EKOS therapy and the plan is to take him back for a third day now with Dr. Olguin. He remains intubated on propofol and very high dose fentanyl 275 mcg. On speaking with his family today, it appears he was having significant issues with pain management for some time and lying down seems to make his pain significantly worse so he will probably continue to need a lot of fentanyl as long as he is intubated. With regards to his hypoxia, chest x-ray certainly shows no acute worsening but it is possible that the lytic therapy has led to breakdown of the large clots with further distal smaller pulmonary emboli. This could explain the worsening hypoxia. He is on heparin drip which is subtherapeutic. So, we will need to be more aggressive about getting this therapeutic today. He is getting PPI drip which we switched to PPI b.i.d. today. I spoke extensively with his parents and sister at the bedside and updated them. CRITICAL CARE TIME: 45 minutes.
[2017-04-05] MEDS ORDERED: Heparin 1,000 Units/500 mL NS Premix IV ONE (12:25)
[2017-04-05] MEDS ORDERED: Heparin 10,000 Unit/1,000 mL NS Premix IV ONE (12:25)
[2017-04-05] MEDS ORDERED: 0.9% Sodium Chloride 500 ML ONE (12:25)
--- NOTE | 2017-04-05 13:12 | DRSVH ---
PROCEDURE: X-RAY CHEST ONE VIEW, PORTABLE ([id number]) INDICATIONS: TUBE PLACEMENT TECHNIQUE: One view of the chest was acquired. COMPARISON: [facility], CR, XR CHEST 1VW (PORTABLE), 04/05/2017, 5:23. [facility], CR, XR CHEST 1VW (PORTABLE), 04/04/2017, 3:59. [facility], CR, XR CHEST 1VW (DUC BLE), 04/03/2017, 10:25. FINDINGS: Surgical changes and devices: NGT is present. ETT is present, tip of which is roughly 7 cm above the alen. Lungs and pleura: No pleural effusions or pneumothorax. Dense opacification within the left medial l agapito base is present. Mild patchy opacity at the right lung base is present, new since the prior exami nation. Mediastinum: Leftward cardiomediastinal shift is present. Mediastinal contours otherwise appear norm al. Heart size is normal. Bones and chest wall: No suspicious bony lesions. Overlying soft tissues appear unremarkable. IMPRESSION: 1. Increased left lower lobe pneumonia with left lower lobe volume loss. 2. Increased right basilar pneumonia. 3. Continued plain film surveillance of the left and right lower lobe opacification is recommended to ensure resolution, and to exclude underlying or central malignancy. Dictated by: Landon Noel M.D. on 04/05/2017 at 13:07 Approved by: Landon Noel M.D. on 04/05/2017 at 13:10
[2017-04-05] MEDS ORDERED: Heparin 1,000 Unit/mL 10 mL Inj ONE (13:37)
[2017-04-05] MEDS ORDERED: ALTEPLASE IV ONE (13:45)
[2017-04-05] MEDS ORDERED: SODIUM CHLORIDE 0.9% IV ONE (13:45)
[2017-04-05] MEDS ORDERED: HYDROmorphone 1 mg/mL Inj IV PRN (13:50)
[2017-04-05] MEDS ORDERED: LORazepam 0.5 mg Tablet PO PRN (13:50)
--- NOTE | 2017-04-05 14:03 | DRSVH ---
[facility] [address] [place] [address] Echocardiogram Report Name: DREA PELAYO WStudy Chyu e: 04/05/2017 Height: 79 in Hospital Exam Location: [facility] Weight: 178 lb Gender: Male BSA: 2.2 m2 : 1990 Age: 27 yrs BP: 97/6 3 mmHg Reason For Study: RV Thrombus Ordering Physician: Performed By: Rhoda Mcmullen Referring Physician: MELISSA CLEARY Interpretation Summary Severely dilated right ventricle with moderate to severely reduced systolic function. Thrombus is visualized in the right ventricle. There is a catheter seen in the right atrium. Comparison is made with the echocardiogram of 04/03/2017, right ventricle size has decreased slightly. Procedure: A two-dimensional transthoracic echocardiogram with color flow and Doppler was performed. Images were not obtained from all of the standard acoustic windows due to the limited scope of the study. Comparison is made with the echocardiogram of 04/03/2017. The patient was in a tachycardic rhythm during the exam. Left Ventricle: The left ventricle is normal in size. Flattened septum is consistent with RV pressure/volume overload. Right Ventricle: The right ventricle is severely dilated. Thrombus is visualized in the right ventricle. Right ventricular systolic function is moderate to severely reduced. Atria: There is a catheter/pacemaker lead seen in the right atrium. Great Vessels: Inspiratory collapse cannot be assessed because of mechanical ventilation, thus CVP cannot be estimated.. Pericardium/ Pleura There is a small pericardial effusion noted. There is no pleural effusion. Electronically signed by: Melissa Morrow on Reading Physician:04/05/2017 02:03 PM
--- NOTE | 2017-04-05 14:10 | DI96 ---
[address] [address] PERIPHERAL CATHETERIZATION/INTERVENTION REPORT PATIENT: DREA PELAYO : 1990 MR#: [id number] ADMIT: 04/03/2017 JOB ID: [id number] PATIENT PROFILE: The patient is a 27 years old male with metastatic gastric carcinoma. He presented with massive bilateral pulmonary emboli. He received catheter-directed thrombolysis for the past two days. Echocardiogram showed residual right ventricular thrombus. PROCEDURE: 1. Central venous access from the right groin under ultrasound guidance. 2. Right external iliac and inferior vena cavogram. 3. Right ventricular angiogram. 4. EKOS catheter placement in the right ventricle. 5. Catheter-directed thrombolysis initiated. VASCULAR CLOSURE DEVICE: None. COMPLICATION: None. METHOD: The right groin was prepped and draped under standard sterile technique. Central venous access was obtained from the right groin under 1% lidocaine local anesthesia using a 6-Lao sheath. This was performed under ultrasound guidance. Right external iliac venogram was performed via the venous sheath. It demonstrated no thrombus in the external iliac vein, common iliac vein and inferior vena cava. A 3DRC catheter was then directed into the right atrium. Angiogram of the right atrium was performed in the AP view. It demonstrated no clot in the right atrium. A Glidewire was then used to direct this catheter into the right ventricle. It was exchanged over a [place] Advantage wire into an EKOS catheter with a treatment length of 6 cm. This was secured in situ. Catheter-directed thrombolysis was initiated. The patient was transferred to the intensive care unit in stable condition. TOTAL CONTRAST USED: 40 cc. FLUOROSCOPY TIME: 1 minute. RESULTS: 1. No deep venous thrombosis in the right iliac vein and inferior vena cava. 2. Successful EKOS catheter placement in the right ventricle. 3. Catheter-directed thrombolysis to the right ventricle was initiated. It will be infused at 1.5 mg/h for 10 hours.
--- NOTE | 2017-04-05 14:29 | NUR ---
EKOS/cardiac Patient returned from procedure. Right venous groin site secure, no sign of active bleeding at site. Pulses intact. ST per director cardiac. MAP>55. TPA verified at bedside. EKOS treatment initiated at 14:21. TPA, NS coolant and heparin (1000 units/500cc) infusing into rt groin site. Heparin gtt rate changed to 600 units/hr at initiation of EKOS treatment, resume DVT heparin orders once EKOS catheter removed. laboratory animal care veterinarian RN to return at completion of EKOS tx and remove catheter, plan to leave rt groin sheath in place till AM.
--- NOTE | 2017-04-05 14:56 | NUR ---
Inpatient Wound Nurse Per patient's primary CCU RN, patient is not stable for turning for posterior skin assessment at this time. Staff following pressure injury prevention protocol and patient is on appropriate surface. CWON available if any pressure ulcers or other wounds are identified.
--- NOTE | 2017-04-05 15:33 | PCM.PNMED ---
Subjective Date of Service Apr 05, 2017 Subjective Patient's blood pressures was tenuous overnight maintaining between 55 and 65 map. Patient is having a little bit more agitation and fentanyl and propofol but needs to sedate him. Was one episode this morning of large desaturation in the low 80s and patient had to be temporarily put on pressure support as he seemed to be more responsive to the setting. Dr. Suazo dysphonic patient daily. The patient has been taking 40 mg of Lovenox at home, and oncology reports that he was prescribed 80 mg. His father also states that he did not take any on Sunday. Discussed with [facility] states that the patient was scheduled to refill his 80 mg Lovenox on the but never did. Potentially this could mean that he was uncovered for 2 days prior to presentation. However, he did have a recent biopsy which he reports he did not take Lovenox for 2 days. Exam Vital Signs Vital Sign - Last Date Time Temp Pulse Resp B/P Pulse Ox O2 Delivery O2 Flow Rate FiO2 04/05/17 14:15 115 85/45 95 80 04/05/17 11:20 Ventilator 04/05/17 11:07 38.0 24 04/04/17 04:23 4.00 Intake and Output 04/04/17 04/04/17 04/05/17 Cumulative From/Thru 15:00 23:00 07:00 04/03/17 07:34 - 04/05/17 06:00 Intake Total 1033 ml 1661 ml 8101 ml Output Total 750 ml 450 ml 3850 ml Balance 283 ml 1211 ml 4251 ml Intake Oral 0 ml 0 ml IV Total 1033 ml 1403 ml 7492 ml Tube Feeding 138 ml 138 ml Packed Cells 351 ml Tube Irrigant 120 ml 120 ml Output Urine Total 550 ml 450 ml 3250 ml Gastric Drainage Total 200 ml 600 ml # Bowel Movements 0 0 Exam General: Sedated age-appropriate male HEENT: JVD noted with patient lying flat Lymph: No lymphadenopathy Cardio: Tachycardia with regular rhythm no murmurs rubs or gallops Respiratory: CTA bilaterally Abdomen: Soft, positive bowel sounds, no injection sites identified Extremities: Bilateral pitting edema, dorsal pulses intact Psych: Sedated Neuro: Sedated Skin: No rash IVs and Medications Medications Reviewed: Medications were reviewed in detail Lab and Diagnostics Result Diagram: 04/05/17 1420 04/05/17 0430 X-Rays, CTs and MRIs Chest x-ray Stable pulmonary venous engorgement and support devices. Dictated by: New Powers M.D. on 04/03/2017 at 11:01 CT angiogram 1. Multiple, bilateral large pulmonary emboli. 2. Flattening of the cardiac interventricular septum suggesting right heart strain. 3. Hepatic metastatic disease. 4. Findings telephoned to Dr. Nathan Paz on 04/03/17 at 0817 hrs. Dictated by: Louisa Jones MD, PhD on 04/03/2017 at 8:13 Chest x-ray 1. Endotracheal tube and nasogastric tube positioned as described. 2. Mild cardiomegaly and moderate vascular congestion. Dictated by: Tristin Mckenzie M.D. on 04/03/2017 at 9:55 Chest x-ray 1. Endotracheal tube is positioned at the thoracic inlet. 2. Mild cardiomegaly and vascular congestion is similar to the prior study. Dictated by: Tristin Mckenzie M.D. 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 Pulmonary embolism from bilateral popliteal DVT's with high clot burden and right ventricular failure; present on admission; ongoing -Patient has had 2 rounds of EKOS with an additional round today aimed at the thrombus in the right ventricle -Repeat echo today shows mild improvement in right ventricular dilation -Patient has also been intermittently hypoxic and is currently on FiO2 of 1.0 -Discussed with pharmacy today and the patient has a potential of having 2 days without coverage of 80 mg Lovenox. He does report holding his Lovenox around the time of his liver biopsy and if this is the case patient may have had one day where he was not covered. Obstructive shock; ongoing -Patient maintaining maps in the mid 50s to mid 60s -Hopefully this will improve as the clots continue to resolve -500 mL bolus had transient effect in patients albumin is low; will replace with 25 mg today -Currently debating whether norepinephrine and dopamine would be of use in this case. Acute hypoxic respiratory failure; present on admission; ongoing -Patient is currently intubated and then will be managed by pulmonology -Intermittent episodes of hypoxia improved with placing the patient on pressure support -Agitation as making for difficult vent management Acute blood loss anemia with possible GI bleed; present on admission; ongoing stable -Recent GI bleed second to gastric ulceration -Patient started on protonics drip -H/H holding steady with a crit of greater than 30 -4 units PRBCs on hold Acute leukocytosis; present on admission; resolving -There is no recent complaints per family of infectious symptoms -White count was elevated greater than 20,000 and elevation of procalcitonin to 5.22 -Likely due to stress reaction. We will continue to monitor for signs of infection Stage IV poorly differentiated adenocarcinoma; present admission; ongoing -Peripheral reports the patient's activity has declined severely -Patient is on high-dose opiates to control severe pain -Patient was to have a port placed this is obviously being deferred for the moment -Dr. Suazo's is following with us daily -After patient is discharged he will likely be placed on FOLFOX Status: No timeline for extubation Full code Pain Evaluation: Adequate Pain Control GI Prophylaxis: Proton Pump Inhibitor Resuscitation Status: CPR: Attempt Resuscitation Attending Statement The patient was seen and examined together with on April 05 and I agree with the history, exam findings, and plan as outlined in the note above. I did participate in all aspects of the services provided today, including documentation and the plan of care. We will continue to treat this patient for massive bilateral pulmonary embolism with heparin drip after the dose has been completed. He also is evidence of left lower lobe lung collapse. We will continue chest physiotherapy. The patient will also start empiric Avelox for possible pneumonia given lung collapse as well as more copious sandoval mucus secretions. Adrian Qiu DO Apr 05, 2017 15:33 Yaakov Fabian MD Apr 06, 2017 14:05
[2017-04-05] MEDS: Pantoprazole 4 mg/mL 10 mL Inj IVPUSH SCH (15:50)
[2017-04-05] MEDS ORDERED: 0.9% Sodium Chloride 1,000 ML IV ONE (16:10)
[2017-04-05] MEDS ORDERED: Piperacillin-Tazo 3.375 Gm Inj 3.375 GM in Dextrose 5% Minibag Plus 50 ML IV ONE (16:30)
--- NOTE | 2017-04-05 16:38 | ABG ---
DateTimeAnalyzed 16:26:54 -_ pH ____7.386 - 7.350 7.450 pCO2 ___41.6__ -mmHg 35.0 45.0 pO2 ___94.4__ -mmHg 69.0 116 HCO3- ___24.9__ -mmol/L 22.0 26.0 ABE ___-0.1__ -mmol/L -2.0 2.0 tHb ____9.4__ -g/dL 12.0 18.0 O2Hb ___96.9__ -% COHb ____2.1__ -% 0.0 1.5 MetHb ____0.0__ -% 0.4 1.5 sO2 ___98.7__ -% FIO2 __100.0__ -% PEEP ____8.0__ -cmH2O Vt __600.0__ -L Drawn By RC - Date/Time Notified____ 16:37:00 -_ Oxygen Device 1 VENTILATOR - Notified By RC - Notified Whom FRY - K+ ____4.4__ -mmol/L 3.5 5.0 tO2 ___13.0__ -Vol% Yaakov test _Positive -
--- NOTE | 2017-04-05 17:33 | NUR ---
Social Work: Initial Assessment/Multidisciplinary Rounds D: Per EMR review, pt is a 27 year old male admitted for bilateral PE, Adenocarcinoma. Pt is [employer] insurance; pt has no LTC or VA benefits. PCP is not listed. NOK is Sravan Malloy, father, . Advanced directives not completed, per father. Readmit score is high, 3/8. Pt discussed in multidisciplinary rounds; pt remains in CCU on [facility]. vent. Anticipate possible extubation in several days. SCHOOL STANDARDS COACH met with the patient's father at bedside. Sw role explained, contact information and discharge planning checklist provided. Pt lives in [place] with his father. pt is I at baseline, uses no DME and has never had HH or skilled rehab. In the days leading up to the patients admission, the patient was experiencing increased weakness requiring the use of a wheelchair the family is borrowing. At this time, they are unsure whether the patient will require this at discharge and are receptive to discharge planning from SCHOOL STANDARDS COACH when the pt's needs are known. A: Pt who was previously Independent. P: Evolving; SCHOOL STANDARDS COACH to continue to follow to assess for pt's discharge needs and assist with safe discharge planning. MILAGROS Magana Addendum: 04/05/17 at 1740 by HELDER LAIRD Amended: Links added.
--- NOTE | 2017-04-05 17:42 | NUR ---
Pt escorted to CT.
--- NOTE | 2017-04-05 18:10 | NUR ---
Pt returned from CT.
--- NOTE | 2017-04-05 18:30 | DRSVH ---
PROCEDURE: CT ANGIO CHEST PULMONARY EMBOLISM ([id number]) INDICATIONS: hypoxia TECHNIQUE: After the administration of intravenous contrast, 2 mm thick sections acquired from the pulmonary api mao to the posterior costophrenic angles. 3-dimensional maximum intensity projection (MIP) coronal a nd sagittal reformats were then acquired through the thorax. For radiation dose reduction, the follo wing was used: automated exposure control, adjustment of mA and/or kV according to patient size. COMPARISON: [facility], CT, CT ANGIO CHEST PE, 04/03/2017, 7:58. FINDINGS: Image quality: Excellent. Pulmonary arteries: Pulmonary arteries are normal in size, and demonstrate, again, multiple moderate and large intraluminal filling defects diagnostic of central pulmonary embolism within the upper and lower lobes bilaterally. Lungs and pleura: Lungs are worsening in appearance, with a greater degree of alveolar consolidation at the right lung base posteriorly and areas fed by pulmonary arteries with internal embolus, and al so in significantly worsened with dense consolidation without much volume loss at the left lower lobe , with adjacent bilateral pleural effusions slightly greater on the right than the left. No pleural effusions or pneumothorax. Central and peripheral airways are patent. Mediastinum: Heart size is normal, without pericardial effusion. No mediastinal or hilar adenopathy . Thoracic aorta is normal in caliber and enhancement. Esophagus is normal in caliber, without hiat al hernia. Nasogastric tube in normal position. Bones and chest wall: No suspicious bony lesions. Ribs and thoracic spine appear intact throughout. Thyroid gland appears normal where well visualized. No axillary or supraclavicular adenopathy. Abdomen: Extensive hepatic metastatic disease.. IMPRESSION: Bilateral pleural effusions, worsening bibasilar pneumonia pattern, greater on the left t ross the right. Multiple bilateral pulmonary emboli are again seen, without appreciable improvement, involving the up per and lower lungs. The extensive overall embolic disease is large. No definite worsening, however from 2 days ago. Extensive hepatic metastatic disease. Nasogastric tube in normal position. Dictated by: Donnie Harrington M.D. on 04/05/2017 at 18:20 Approved by: Donnie Harrington M.D. on 04/05/2017 at 18:29
[2017-04-05] MEDS: Heparin 25K Unit/500mL 0.45 NS 25,000 UNIT in IV Premix 1 EACH IV SCH (19:52)
--- NOTE | 2017-04-05 21:32 | ABG ---
DateTimeAnalyzed 21:24:07 -_ pH ____7.417 - 7.350 7.450 pCO2 ___38.1__ -mmHg 35.0 45.0 pO2 ___80.1__ -mmHg 69.0 116 HCO3- ___24.6__ -mmol/L 22.0 26.0 ABE ____0.0__ -mmol/L -2.0 2.0 tHb ____9.3__ -g/dL 12.0 18.0 O2Hb ___95.6__ -% COHb ____2.2__ -% 0.0 1.5 MetHb ____0.0__ -% 0.4 1.5 sO2 ___97.5__ -% FIO2 ___21.0__ -% PEEP ___10.0__ -cmH2O Set_RR 12 -b/min Vt __600.0__ -L Drawn By MD - Date/Time Notified____ 21:32:00 -_ Spontaneous_RR 26 -b/min Oxygen Device 1 VENTILATOR - Notified By MD - Notified Whom RN K.SWAN - K+ ____4.4__ -mmol/L 3.5 5.0 tO2 ___12.6__ -Vol% Yaakov test N/A -
[2017-04-05] MEDS: Piperacillin-Tazo 3.375 Gm Inj 3.375 GM in Dextrose 5% Minibag Plus 50 ML IV SCH (23:30)
[2017-04-05] MEDS: Chlorhexidine 0.12% 15 mL Oral Solution MT SCH (23:33)
[2017-04-06] VITALS (15 sets, daily range): BP systolic 87–117; BP diastolic 34–60; PULSE 110–122; RESP 17–26; O2SAT 92–100
[2017-04-06 02:18] LABS: BASOPHILS % (AUTO) 0.2 % (0-3); MONOCYTES % (AUTO) 7.3 % (4-12); Mean Corpuscular Hemoglobin 23.2 pg (27.0-35.0); Mean Corpuscular Volume 73.3 fL (81-100); NEUTROPHILS % (AUTO) 84.7 % (40-74); Platelet Count 222 bil/L (150-400)
[2017-04-06] MEDS: Chlorhexidine 0.12% 15 mL Oral Solution MT SCH ×6 (03:32→23:31)
[2017-04-06] MEDS: Propofol Inj 1,000,000 MCG in IV Premix 1 EACH IV PRN ×4 (03:32→23:31)
--- NOTE | 2017-04-06 04:29 | ABG ---
DateTimeAnalyzed 04:19:08 -_ pH ____7.432 - 7.350 7.450 pCO2 ___36.4__ -mmHg 35.0 45.0 pO2 ___64.4__ -mmHg 69.0 116 HCO3- ___24.3__ -mmol/L 22.0 26.0 ABE ____0.0__ -mmol/L -2.0 2.0 tHb ____9.4__ -g/dL 12.0 18.0 O2Hb ___92.4__ -% COHb ____2.2__ -% 0.0 1.5 MetHb ____0.0__ -% 0.4 1.5 sO2 ___94.3__ -% FIO2 ___21.0__ -% PEEP ___10.0__ -cmH2O Set_RR 12 -b/min Vt __600.0__ -L Drawn By MD - Date/Time Notified____ 04:27:00 -_ Spontaneous_RR 28 -b/min Oxygen Device 1 VENTILATOR - Notified By MD - Notified Whom RN K.SWAN - K+ ____4.4__ -mmol/L 3.5 5.0 tO2 ___12.3__ -Vol% Yaakov test N/A -
[2017-04-06] MEDS: fentaNYL 2,500 mCg/250 mL 2,500 MCG in IV Premix 1 EACH IV SCH ×3 (04:46→21:17)
--- NOTE | 2017-04-06 05:53 | NUR ---
Heparin TPA stopped just after midnight. Heparin remains TKO through sheath. Heparin fixed dose of 600 units/hr changed to DVT/PE protocol. Updated MD who clarified no bolus until next PTT draw, dose transferred to kg base amount based on ml/hr patient previously receiving. MD updated on dose. See flow chart and intervention charting for further details. Plan to turn TKO heparin through sheath off at 0700. No orders to stop Heparin gtt for PE/DVT protocol, MD called and clarified to keep it infusing.
--- NOTE | 2017-04-06 06:13 | PCM.PNMED ---
Subjective Date of Service Apr 06, 2017 Subjective Overnight patient completed EKOS and was switched to DVT/PE protocol with first bolus pending PTT which was subtherapeutic. Pt remained tachycardic and tachypneic overnight. BP is low but stable. Yesterday the patient was sent to CT for assessment of his hypoxia with resultant study showing persistent clot burden in the pulmonary arteries and left lower lung atelectasis. Echo revealed only very mild improvement in RV function. Exam Vital Signs Vital Sign - Last Date Time Temp Pulse Resp B/P Pulse Ox O2 Delivery O2 Flow Rate FiO2 04/06/17 04:50 94 100 04/06/17 03:32 37.4 121 26 97/50 04/06/17 03:30 Ventilator 04/04/17 04:23 4.00 Intake and Output 04/05/17 04/05/17 04/06/17 Cumulative From/Thru 15:00 23:00 07:00 04/03/17 07:34 - 04/06/17 05:35 Intake Total 2147 ml 997 ml 88955 ml Output Total 500 ml 550 ml 4900 ml Balance 1647 ml 447 ml 6345 ml Intake Oral 0 ml IV Total 2018 ml 997 ml 01371 ml Tube Feeding 89 ml 227 ml Packed Cells 351 ml Tube Irrigant 40 ml 160 ml Output Urine Total 500 ml 550 ml 4300 ml Gastric Drainage Total 600 ml # Bowel Movements 0 Exam General: Sedated age-appropriate male Cardio: Tachycardia with regular rhythm no murmurs rubs or gallops Respiratory: CTA bilaterally and tachypneic Abdomen: Soft Extremities: Bilateral pitting edema, dorsal pulses intact Psych: Sedated Neuro: Sedated Skin: No rash IVs and Medications Medications Reviewed: Medications were reviewed in detail Lab and Diagnostics Result Diagram: 04/06/1721404/06/17214 X-Rays, CTs and MRIs Chest x-ray Stable pulmonary venous engorgement and support devices. Dictated by: New Powers M.D. on 04/03/2017 at 11:01 CT angiogram 1. Multiple, bilateral large pulmonary emboli. 2. Flattening of the cardiac interventricular septum suggesting right heart strain. 3. Hepatic metastatic disease. 4. Findings telephoned to Dr. Nathan Paz on 04/03/17 at 0817 hrs. Dictated by: Louisa Jones MD, PhD on 04/03/2017 at 8:13 Chest x-ray 1. Endotracheal tube and nasogastric tube positioned as described. 2. Mild cardiomegaly and moderate vascular congestion. Dictated by: Tristin Mckenzie M.D. on 04/03/2017 at 9:55 Chest x-ray 1. Endotracheal tube is positioned at the thoracic inlet. 2. Mild cardiomegaly and vascular congestion is similar to the prior study. Dictated by: Tristin Mckenzie M.D. 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 Pulmonary embolism from bilateral popliteal DVT's with high clot burden and right ventricular failure; present on admission; ongoing -Discussed with pharmacy today and the patient has a potential of having 2 days without coverage of 80 mg Lovenox. He does report holding his Lovenox around the time of his liver biopsy and if this is the case patient may have had one day where he was not covered. -Patient has had 3 rounds of EKOS with last ending around midnight last night -Repeat echo 04/05/17 shows mild improvement in right ventricular dilation -Continue supportive treatment today -Will discuss with ICU team and Dr. Olguin about next steps going forward Obstructive shock; ongoing -Patient maintaining maps in the mid 50s to mid 60s -Hopefully this will improve as the clots continue to resolve -Will use pressors (likely norepi or dopamine) if MAP drops below 55 consistently Acute hypoxic respiratory failure; present on admission; ongoing -Patient is currently intubated and then will be managed by pulmonology; CT shows severe atelectasis in Left lower lobe -Intermittent episodes of hypoxia improved with placing the patient on pressure support; will continue -Pulmonary toilet and physio therapy today Acute blood loss anemia with possible GI bleed; present on admission; ongoing stable -Recent GI bleed second to gastric ulceration -Patient started on protonics drip -H/H holding steady with a crit of greater than 30 -4 units PRBCs on hold Sepsis with likely pulmonary source; present on admission; resolving -There is no recent complaints per family of infectious symptoms, however, pt has wide pulse pressure and remains tachycardic/tachypneic -White count was elevated greater than 20,000 and elevation of procalcitonin to 5.22; trend fluctuates -Started on Zosyn 04/05/17 Stage IV poorly differentiated adenocarcinoma; present admission; ongoing -Peripheral reports the patient's activity has declined severely -Patient is on high-dose opiates to control severe pain -Dr. Suazo's is following with us daily -After patient is discharged he will likely be placed on FOLFOX -LDH is elevated > 1000 Status: No timeline for extubation Full code GI Prophylaxis: Proton Pump Inhibitor Resuscitation Status: CPR: Attempt Resuscitation Attending Statement The patient was seen and examined together with on April 06 and I agree with the history, exam findings, and plan as outlined in the note above. I did participate in all aspects of the services provided today, including documentation and the plan of care. The patient continues to do poorly with significant pulmonary embolism clot burden as illustrated in repeat CT angiogram. We will continue to treat with unfractionated heparin per the DVT PE protocol. The patient is also covered for him. Pneumonia and will undergo bronchoscopy later today for left lower lobe lung collapse. Adrian Qiu DO Apr 06, 2017 06:13 Yaakov Fabian MD Apr 06, 2017 14:15
[2017-04-06] MEDS: Piperacillin-Tazo 3.375 Gm Inj 3.375 GM in Dextrose 5% Minibag Plus 50 ML IV SCH ×3 (07:59→23:32)
[2017-04-06] MEDS: Pantoprazole 4 mg/mL 10 mL Inj IVPUSH SCH ×2 (08:03→17:57)
[2017-04-06] MEDS: Polyethylene Glycol (PEG) 17 Gm Powder PO SCH (08:04)
--- NOTE | 2017-04-06 08:18 | DRSVH ---
PROCEDURE: X-RAY CHEST ONE VIEW, PORTABLE ([id number]) INDICATIONS: hypoxia TECHNIQUE: One view of the chest was acquired. COMPARISON: [facility], CR, XR CHEST 1VW (PORTABLE), 04/05/2017, 12:18. FINDINGS: Surgical changes and devices: Stable ET tube with tip 8 CM above the alen and enteric tube with tip below the diaphragm. Left PICC tip in the low SVC. Lungs and pleura: Minimal enlargement of a small left pleural effusion with dense left lower lobe vol ume loss. Right basilar volume loss progressed since the previous study. Mediastinum: Mediastinal contours appear normal. Heart size is normal. Bones and chest wall: No suspicious bony lesions. Overlying soft tissues appear unremarkable. IMPRESSION: 1. Worsening bibasilar opacities greatest in left lower lobe with enlarged but still small left pleur al effusion. 2. Stable support devices. Dictated by: New Powers M.D. on 04/06/2017 at 8:13 Approved by: New Powers M.D. on 04/06/2017 at 8:16
--- NOTE | 2017-04-06 09:13 | NUR ---
NUTRITION FOLLOW-UP: ASSESS:27 YO male with a recent diagnosis of metastatic gastric cancer with family history of Peutz-Jeghers syndrome, and adenocarcinoma of the stomach, bilateral DVTs and GI bleed 1 month ago presented to the ED complaining of sudden onset shortness of breath with minimal exertion onset. He was admitted to CCU with bilateral submassive PE. Today he remains sedated and intubated, on fentanyl and propofol, status post EKOS x 3. Unfortunately, the clot burden remains largely unchanged. Per RN, patient appears more alert today, giving thumbs up and responding to commands. He has become septic due to pneumonia. His left lung has collapsed. Enteral feeding rate currently 30 mL/hr, advancing toward goal rate 85 mL/hr, with no issues reported. His latest residual was 40 mL. PMHx:Metastatic gastric cancer, upper GI bleed 6 weeks ago, liver biopsy 1-1/2 weeks ago, Peutz-Jeghers syndrome, deep venous thrombosis of the lower extremities. DIET:NPO. ENTERAL FEEDING: Jevity 1.5 rate currently 30 mL/hr; advancing 5 ml every 4 hr. to goal rate 85 mL/hr. Goal rate enteral feeding will provide 2805 kcal, 119 g protein, sufficient to meet approx. 100% kcal / 92% protein needs. LABS: Reviewed. Cr 0.62, Glu 103, Ca 8.0, Totalk Biuli 3.3, AST 296, ALT 107, Alk Phos 386, LD 1168, PAB < 3.0, Procal 8.30. MEDICATIONS: Reviewed. Fentanyl, dulcolax, miralax, senna. Propofol rate currently 12.2 mL/hr, providing 272 lipid kcal. NUTRITION FOCUSED PHYSICAL ASSESSMENT: GI symptoms / stool: No stool reported.Karlos: 10. Skin Integrity: No issues reported. ANTHROPOMETRICS: Current Wt: 79.9 kg, BMI 19.0 kg/m2. Admit weight: 81.0, BMI: 20.0 kg/m2. There has been no weight change since his diagnosis was verified. IBW: 100 kg (81% IBW) ESTIMATED NEEDS (CANCER, UNDERWEIGHT): Calories: 2835 - 3240 kcal (30 - 35 kcal / kg BW) Protein: 122 - 146 g protein (1.5 - 1.8 g / kg BW) Fluid: Approx. 2835 mL (35 mL / kg BW) NUTRITION DIAGNOSIS: 1)Inadequate oral intake related to inability to consume sufficient energy, as evidenced by NPO / vent status - PERSISTS. 2)Increased nutrient needs related to cancer and underweight status, as evidenced by 81% IBW - PERSISTS. INTERVENTION: 1) Will add 1 packet ProSource liquid protein two times per day via enteral route to meet 100% protein needs. MONITOR/EVALUATE: NPO / vent status, enteral feeding / ProSource tolerance / advance, labs, weight, nutritional status. Follow up per high nutrition risk guidelines.
[2017-04-06] MEDS ORDERED: Heparin 5,000 Unit/mL Inj IVPUSH ONE (09:20)
[2017-04-06] MEDS: Heparin Protocol Boluses IVPUSH PRN ×3 (09:25→21:20)
--- NOTE | 2017-04-06 09:48 | PCM.PNMED ---
Subjective Date of Service Apr 06, 2017 Subjective ICU Progress Note Pt is a 27 year old male with a hx of metastatic gastric cancer with family history of Peutz-Jeghers syndrome, and adenocarcinoma of the stomach, bilateral DVTs and GI bleed 1 month ago who presented to the ED complaining of sudden onset shortness of breath with minimal exertion onset yesterday. Admitted for bilateral massive PE. Overnight, TPA completed around midnight and heparin PE protocol continued. Following TPA, chest physiotherapy was initiated. During his second treatment with chest PT, he became tachypneic and tachycardic, and the treatment was terminated. Exam Vital Signs Vital Sign - Last Date Time Temp Pulse Resp B/P Pulse Ox O2 Delivery O2 Flow Rate FiO2 04/06/17 07:38 117 95/49 98 100 04/06/17 03:32 37.4 26 04/06/17 03:30 Ventilator 04/04/17 04:23 4.00 Intake and Output 04/05/17 04/05/17 04/06/17 Cumulative From/Thru 15:00 23:00 07:00 04/03/17 07:34 - 04/06/17 05:35 Intake Total 2147 ml 997 ml 25267 ml Output Total 500 ml 550 ml 4900 ml Balance 1647 ml 447 ml 6345 ml Intake Oral 0 ml IV Total 2018 ml 997 ml 91268 ml Tube Feeding 89 ml 227 ml Packed Cells 351 ml Tube Irrigant 40 ml 160 ml Output Urine Total 500 ml 550 ml 4300 ml Gastric Drainage Total 600 ml # Bowel Movements 0 Exam General: Alert and oriented. No acute distress Head: Normocephalic, atraumatic. External ears normal. Eyes: PERRLA, EOMI. Anicteric sclerae. Mouth: Mouth normal, Mucous membranes moist/pink Neck: Neck supple with full range of motion. Chest& Lungs: Tachycardic. No murmurs, rubs, gallops. Cardiovascular: Clear to auscultation bilaterally. No wheezes, rales, rhonchi. Abdomen: Nontender, Somewhat firm but non-distended and not rigid, No masses, hypoactive bowel tones, Soft Extremities: Bilateral lower extremity moderate-severe edema. Neuro: Alert and oriented. Does not open eyes but responds appropriately by nodding his head. Lab and Diagnostics Result Diagram: 04/06/17 0825 04/06/17 0215 X-Rays, CTs and MRIs Chest x-ray Stable pulmonary venous engorgement and support devices. Dictated by: New Powers M.D. on 04/03/2017 at 11:01 CT angiogram 1. Multiple, bilateral large pulmonary emboli. 2. Flattening of the cardiac interventricular septum suggesting right heart strain. 3. Hepatic metastatic disease. 4. Findings telephoned to Dr. Nathan Paz on 04/03/17 at 0817 hrs. Dictated by: Louisa Jones MD, PhD on 04/03/2017 at 8:13 Chest x-ray 1. Endotracheal tube and nasogastric tube positioned as described. 2. Mild cardiomegaly and moderate vascular congestion. Dictated by: Tristin Mckenzie M.D. on 04/03/2017 at 9:55 Chest x-ray 1. Endotracheal tube is positioned at the thoracic inlet. 2. Mild cardiomegaly and vascular congestion is similar to the prior study. Dictated by: Tristin Mckenzie M.D. on 04/03/2017 at 10:03 Assessment & Plan Pt is a 27 year old male with a hx of metastatic gastric cancer with family history of Peutz-Jeghers syndrome, and adenocarcinoma of the stomach, bilateral DVTs and GI bleed 1 month ago who presented to the ED complaining of sudden onset shortness of breath with minimal exertion onset yesterday. Admitted for bilateral massive PE. Massive bilateral pulmonary emboli with obstructive shock, acute. Not improving. - Discussed with family today, who confirmed he was in fact on Lovenox 80 mg daily. He was known to have held treatment for 2 days x2 for procedures. The family will go through his Lovenox stores and try to discern if there were any missed doses. It is unlikely that he developed PEs of this size by simply missing 4 doses, unless he actually missed more. Whether he should continue on Lovenox after this hospitalization likely depends on whether he skipped other doses. He continues to be hypotensive due to acute right heart failure from massive PE. Repeat CT shows unchanged clot burden despite treatment with tPA. Repeat echo is mostly unchanged. MAP remains between 50s - 60s for most of the night. Dr. Olguin is out of town and Dr. Polo will be following. Will discuss case with him and possibility of systemic tPA. - Treatment with EKOS complete - Continue heparin gtt PE/DVT protocol - Will consider inotropic support with dopamine if his blood pressure does not improve. - Minimize sedation as much as possible - Considering possible IVC filter - will discuss with Dr. Polo - Discuss systemic thrombolytics with Dr. Polo - Dr. Polo is following. We appreciate his expertise. Acute hypoxic respiratory failure. - Secondary to PE and collapsed lung. His oxygen requirements increased overnight, which may be due to evolving V/Q mismatch with lysis of the pulmonary emboli and movement of clot into smaller vessels. Also due to collapsed left lower lobe, seen on CXR on 04/05. Possibly due to obstructing mucous plug. Discussed options with family and decided to proceed with bronchoscopy. - Continue mechanical ventilation. - Continue chest physiotherapy as tolerated. - Will proceed with bronchoscopy today Sepsis secondary to HCAP. Acute. - CT angio showed bilateral pleural effusions, worsening bibasilar pneumonia pattern, greater on the left than the right. Worsening leukocytosis, procalcitonin, intermittent fevers. - Continue Zosyn IV - Monitor procalcitonin, CBC Acute iron deficiency anemia. Stable. - Secondary to hemodilution from aggressive fluid resuscitation. Possibly secondary to GI bleed from malignant gastric ulcers, but no sign of acute bleed at this time. Hb has been stable, so will switch from PPI drip to BID. - PRBCs on hold. Transfuse for HB <8. - Check H&H daily - Protonix 40 mg IV BID - Monitor for signs of acute bleeding Bilateral popliteal DVT - Pt diagnosed with bilateral large DVTs 3 weeks ago, placed on Lovenox. See above discussion on Lovenox. - Continue heparin gtt Metastatic liver cancer due to poorly differentiated adenocarcinoma. - Diagnosed 6 weeks ago. Biopsy of liver mets revealed poorly differentiated adenocarcinoma. Likely secondary to gastric carcinoma vs pancreatobiliary carcinoma. Possibly related to family history of Peutz-Jeghers syndrome, although less likely given pathology, per Dr. Suazo. - Dr. Suazo of Oncology is following. We appreciate his input. Chronic back pain - Patient has severe cancer-related back pain that is exacerbated with laying flat. His family reports it is to the point that he becomes severely agitated and combative if forced into a flat supine position without adequate pain coverage, and as such he would have severe difficulty with any procedure without adequate sedation. The family's main concern is adequate opiate coverage when the patient is weaned off of fentanyl gtt and extubated eventually. We assured the family that we would continue to update them closely with any changes in care. He will need larger doses of opiates given his tolerance. Per his sister, he requires at least 10-15 morphine equivalents to control his pain (eg Dilaudid 1-2 mg). - Will need to treat pain aggressively after weaning fentanyl - Continue to update family regularly regarding medical plan. GI Prophylaxis: Proton Pump Inhibitor Resuscitation Status: CPR: Attempt Resuscitation Attending Statement I have seen and examined this patient with the resident physician. Vital signs , labs, imaging have been reviewed. I agree with the assessment and plan above. Please refer to my separately dictated progress note for any modifications to above. Rosa Mirza M.D. Pulmonary and Critical Care medicine Pager [phone] Chavez Mahajan Apr 06, 2017 09:47 Rosa Mirza MD Apr 08, 2017 14:49
[2017-04-06] MEDS ORDERED: Lidocaine Topical 2% 30 mL Jelly ONE (12:13)
[2017-04-06] MEDS ORDERED: Lidocaine PF 2% 10 mL Inj ONE (12:13)
--- NOTE | 2017-04-06 12:30 | NUR ---
Inpatient Wound Nurse Patient seen for posterior skin assessment. A bordered foam sacral dressing has been applied for erythema noted on noc shift. Due to patient's pain when laid flat and difficulty with positioning, dressing was not removed for visual assessment. Since patient's edema is increased, he is at risk for pressure injury and extensive pitting edema is noted around trunk, hips, and thighs. Despite pedal edema, heels are pink and cool, no bogginess or evidence of stage 1s or deep tissue injuries. Patient's primary CCU RN is following all pressure injury protocols and he is on P500 surface. CWON will remain available for any specific pressure injuries if they occur.
--- NOTE | 2017-04-06 12:55 | PROG NOTE ---
[address] [address] PROGRESS NOTE PATIENT: DREA PELAYO : 1990 MR#: [id number] ADMIT: 04/03/2017 JOB ID: [id number] DATE: 04/06/2017 PULMONARY CRITICAL CARE PROGRESS NOTE: The patient is a 27-year-old man with recently diagnosed metastatic gastric adenocarcinoma, bilateral lower extremity DVT, presenting with submassive pulmonary emboli. The patient was seen and evaluated with resident physician Chavez Mahajan DO. Please refer to his separate detailed note for additional information. The following is a brief attending note. INTERVAL HISTORY: Chest PT was initiated late last night. He tolerated the 1st round well but after the 2nd round had tachycardia, tachypnea, and some respiratory distress, because of which it was stopped. Blood pressure has been low normal but no additional episodes of hypotension. He remains on 100% FiO2. REVIEW OF SYSTEMS: Could not be obtained since he is intubated. PHYSICAL EXAMINATION: Vital signs reviewed. T-max of 37.8. He is on 100% FiO2 with sats of 98%, PEEP of 8 cm, pressure control of 20. Assessment plan. General: Intubated, sedated. Currently unresponsive. Chest: Clear to auscultation bilaterally. Heart: Regular rate, rhythm. Bilateral 2+ lower extremity edema is unchanged. LABORATORY: Reviewed. WBC 15.3 from 13.8 yesterday. Chemistry reviewed. Procalcitonin is 10.8 today from 4.1. PTT still 34.5. CT chest, PE protocol, done last night shows no change in saddle pulmonary emboli and clot burden. There is complete left lower lobe collapse. There is some tree-in-bud and nodular consolidation at the right base. ASSESSMENT: 1. Acute submassive pulmonary emboli status post EKOS therapy x3 with tPA.. 2. Sepsis due to pneumonia. 3. Left lower lobe collapse/atelectasis. 4. Shock/hypotension, intermittent. 5. Acute hypoxic respiratory failure on mechanical ventilation since April 03. 6. Bilateral popliteal deep venous thrombosis diagnosed February 2017. 7. Family history of Peutz-Delfina syndrome. 8. Status post liver biopsy for diagnosis of metastatic gastric adenocarcinoma on March 23. 9. History of GI bleed February 2017. RECOMMENDATIONS: A 27-year-old man with recent diagnosis of gastric adenocarcinoma metastatic to the liver that was discovered a month ago, presenting initially with GI bleed, subsequently complicated by bilateral DVT. He presented with submassive to massive pulmonary embolism on April 03 after holding maybe one or two doses of his Lovenox for a PICC line placement. As described previously he has had three days of EKOS therapy with alteplase infusion. Repeat imaging was done yesterday because of an episode of worsening hypoxia and hypotension. This showed no change in clot burden at all and in fact new left lower lobe collapse with basilar consolidation. We started IV antibiotics yesterday, Zosyn, and also gave him fluid for resuscitation. I am hoping that the changes yesterday evening are due to sepsis and left lower lobe collapse rather than hemodynamic effects of his pulmonary embolism. He has been relatively stable overnight. He remains on 100% oxygen and 8 cm of PEEP but did not tolerate the 2nd round of chest physiotherapy. For this reason, I would like to proceed with a bronchoscopy to try to open up the left lower lobe and relieve any mucus plug that may be present. We will also obtain samples for culture at the same time. Continue Zosyn in the meantime. With regards to his pulmonary embolism, his heparin drip is still subtherapeutic. We are going to try to be more aggressive with this again today and repeat a bolus and increase the drip rate. It is not clear to me that he is truly a failure of outpatient Lovenox therapy or if this was just inadequate dosing. He is getting PPI b.i.d. which we will continue. At present there is no sign of bleeding. Based on review of the literature, there was a study of 110 patients published a few years ago which showed good response to reduced-dose systemic thrombolytics at 50 mg infused over 2 hours instead of the usual dose of 100 mg. This lower dose was associated with less bleeding and may be a good option in his case if he were to show hemodynamic compromise overnight. My recommendation if he would have worsening hypotension overnight which we attribute to his PEs would be to give him 50 mg of tPA over 2 hours. I do not think further EKOS would be helpful since he has now had 3 rounds with no change in clot burden and appearance on imaging. I spoke with his sister, who is his power of assistant attorney general, and mother at the bedside today and updated them. They agreed with proceeding with bronchoscopy. TIME: Critical care time 60 minutes.
--- NOTE | 2017-04-06 13:31 | PROCED ---
[address] [address] PROCEDURE NOTE PATIENT: DREA PELAYO : 1990 MR#: [id number] ADMIT: 04/03/2017 JOB ID: [id number] DATE OF SERVICE: 04/05/2017 POSTOPERATIVE DIAGNOSIS(ES): PREOPERATIVE DIAGNOSIS(ES): SURGEON: Rosa Mirza MD, pulmonary critical care medicine. PROCEDURE: Right radial arterial catheter placement under ultrasound guidance. INDICATION: Hypotension. The patient is a 27-year-old man with bilateral pulmonary emboli who was hypotensive. An arterial catheter was placed for monitoring of blood pressure. Informed consent was obtained from the patient's sister, who is his power of immigration attorney, after risks and benefits were explained. Ultrasound guidance was used to locate the radial artery on the right and location marked. The right wrist was cleaned with chlorhexidine swab and the sterile drape applied. I then proceeded to place the 21-gauge right radial arterial catheter without difficulty. A flash of blood was obtained after which guidewire was passed and catheter was passed easily. The catheter was connected and a good pressure waveform obtained. Catheter was secured with Tegaderm. COMPLICATIONS: None.
[2017-04-06 15:27] LABS: APPEARANCE,URINE TURBID (CLEAR,HAZY); COLOR,URINE ORANGE (YELLOW); OCCULT BLOOD,URINE NEGATIVE (NEGATIVE)
--- NOTE | 2017-04-06 15:27 | ENDO ---
[address] [address] ENDOSCOPY PROCEDURE PATIENT: DREA PELAYO : 1990 MR#: [id number] ADMIT: 04/03/2017 JOB ID: [id number] DATE: 04/06/2017 PROCEDURE: Bronchoscopy. PERFORMED BY: Rosa Mirza M.D., Pulmonary Medicine. INDICATION: Left lower lobe collapse, severe hypoxia. DESCRIPTION OF PROCEDURE: Informed consent was obtained from the patient's sister who is his power of civil attorney after risks and benefits of the procedure were discussed. The patient was already intubated prior to the procedure, on fentanyl and propofol. Additional medication was given IV for sedation. Lidocaine was pushed through the ET tube. The patient was already on 100% oxygen. The scope was passed through the endotracheal tube. Trachea was visualized. The mucosa was inflamed, erythematous, covered in thick yellow purulent-appearing secretions. A complete right and left-sided airway inspection was performed. This was most notable for diffusely erythematous, irritated, inflamed looking mucosa throughout. This was in many areas covered with similarly thick, purulent, yellowish secretions which were all suctioned out. There were secretions in the left lower lobe although not a thick plug per se, but definitely filling the entire airway. All of this was suctioned out. We then proceeded to do a bronchoalveolar lavage in the left lower lobe. 120 cc of fluid was administered with about 40 cc return obtained. The fluid was pale pink in color. COMPLICATIONS: None. FINDINGS: Diffusely erythematous, inflamed appearing airways bilaterally with thick yellowish purulent secretions filling the airways, more so in the left lower lobe. All of this was suctioned out and airways were clear prior to removal of the scope. SAMPLES: BAL left lower lobe about 30-40 mL sent for bacterial and fungal cultures.
[2017-04-06 15:38] LABS: ICTOTEST,URINE POS (Negative)
[2017-04-06] MEDS: Heparin 25K Unit/500mL 0.45 NS 25,000 UNIT in IV Premix 1 EACH IV SCH (19:36)
--- NOTE | 2017-04-06 19:40 | NUR ---
Neuro: Nods yes and no appropriately. Assists with range of motion. Pain controlled on fentanyl gtt at 275mcg, sedation adequate on propofol at 25mc. Resp: Tolerated bronch without incident. Saturations improved, FiO2 weaned to 60% from 100%. Continues on pressure control, rates 18-24, volumes 680-700's. Suctioning for moderate amounts yellow secretions via ETT. Air leak present, RT here to evaluate- able to resolve with advancing tube 2cm, Dr Mirza updated. GI/: Abd distended, UAP done and is 16-17mmHg, MD updated at AM rounds, no new orders. No stool. Tolerates TF, residual 140ml at 0800. TF interrupted and OG placed to suction prior to bronch, orders to advance resumed after procedure. Tmax 37.7 today. Heparin infusion per DVT protocol with PTT's still 35+/- despite bolus and increase in gtt. Dr Mirza aware, plan to monitor for now. Dr Suazo plans to consult specialist in [place] regarding hypercoagulable state. Care explained before given, questions answered for family as able.
--- NOTE | 2017-04-06 21:51 | ABG ---
DateTimeAnalyzed 21:43:17 -_ pH ____7.437 - 7.350 7.450 pCO2 ___37.6__ -mmHg 35.0 45.0 pO2 ___67.5__ -mmHg 69.0 116 HCO3- ___25.3__ -mmol/L 22.0 26.0 ABE ____1.0__ -mmol/L -2.0 2.0 tHb ____9.4__ -g/dL 12.0 18.0 O2Hb ___93.4__ -% COHb ____2.1__ -% 0.0 1.5 MetHb ____0.0__ -% 0.4 1.5 sO2 ___95.2__ -% FIO2 ___21.0__ -% PEEP ____8.0__ -cmH2O Set_RR 12 -b/min Vt __600.0__ -L Drawn By MD - Date/Time Notified____ 21:51:00 -_ Spontaneous_RR 17 -b/min Oxygen Device 1 VENTILATOR - Notified By MD - Notified Whom RN K.SWAN - K+ ____4.3__ -mmol/L 3.5 5.0 tO2 ___12.4__ -Vol% Yaakov test N/A -
[2017-04-07] VITALS (13 sets, daily range): BP systolic 95–118; BP diastolic 45–62; PULSE 114–124; RESP 19–23; O2SAT 60–97
[2017-04-07 03:06] LABS: BASOPHILS % (AUTO) 0.2 % (0-3); EOSINOPHILS % (AUTO) 1.6 % (0-5); MONOCYTES % (AUTO) 6.9 % (4-12); Mean Corpuscular Hemoglobin 23.6 pg (27.0-35.0); Mean Corpuscular Volume 73.8 fL (81-100); NEUTROPHILS % (AUTO) 85.4 % (40-74); Platelet Count 262 bil/L (150-400)
[2017-04-07] MEDS: Heparin Protocol Boluses IVPUSH PRN ×2 (04:47→09:26)
[2017-04-07] MEDS: Chlorhexidine 0.12% 15 mL Oral Solution MT SCH ×5 (04:47→21:27)
--- NOTE | 2017-04-07 05:42 | ABG ---
DateTimeAnalyzed 05:33:48 -_ pH ____7.448 - 7.350 7.450 pCO2 ___36.0__ -mmHg 35.0 45.0 pO2 ___68.7__ -mmHg 69.0 116 HCO3- ___24.9__ -mmol/L 22.0 26.0 ABE ____0.8__ -mmol/L -2.0 2.0 tHb ____9.0__ -g/dL 12.0 18.0 O2Hb ___94.1__ -% COHb ____2.2__ -% 0.0 1.5 MetHb ____0.0__ -% 0.4 1.5 sO2 ___96.1__ -% FIO2 ___21.0__ -% PEEP ____8.0__ -cmH2O Set_RR 12 -b/min Vt __739.0__ -L Drawn By MD - Date/Time Notified____ 05:42:00 -_ Spontaneous_RR 23 -b/min Oxygen Device 1 VENTILATOR - Notified By MD - Notified Whom RN K.SWAN - K+ ____4.3__ -mmol/L 3.5 5.0 tO2 ___11.9__ -Vol% Yaakov test N/A -
[2017-04-07] MEDS: fentaNYL 2,500 mCg/250 mL 2,500 MCG in IV Premix 1 EACH IV SCH ×2 (05:56→14:46)
[2017-04-07] MEDS: Propofol Inj 1,000,000 MCG in IV Premix 1 EACH IV PRN ×3 (05:57→21:27)
[2017-04-07] MEDS: Heparin 25K Unit/500mL 0.45 NS 25,000 UNIT in IV Premix 1 EACH IV SCH (05:57)
--- NOTE | 2017-04-07 06:31 | NUR ---
Resp / GI No changes made to vent this shift, ABGs x2 with minimal changes. Patient has small amount of yellow secretions. TF increased as ordered. Currently at 50ml/hr. Residual 125-270ml. Protein administered once overnight. Patient continues to have distended abdomen. IAP 16. No BM.
[2017-04-07] MEDS: Pantoprazole 4 mg/mL 10 mL Inj IVPUSH SCH ×2 (08:15→17:31)
[2017-04-07] MEDS: Polyethylene Glycol (PEG) 17 Gm Powder PO SCH (08:16)
--- NOTE | 2017-04-07 08:16 | DRSVH ---
PROCEDURE: X-RAY CHEST ONE VIEW, PORTABLE ([id number]) INDICATIONS: SHORTNESS OF BREATH TECHNIQUE: One view of the chest was acquired. COMPARISON: [facility], CR, XR CHEST 1VW (PORTABLE), 04/07/2017, 5:02. [facility], CR, XR CHEST 1VW (PORTABLE), 04/06/2017, 5:04. FINDINGS: Surgical changes and devices: Endotracheal and nasogastric tube positioning normal. PICC line from l eft-sided approach in normal position crossing the midline, extending at least into the area of the a zygos arch of the superior vena cava. Lungs and pleura: No pleural effusions or pneumothorax. Lungs are mildly edematous, and there does appear to be a retrocardiac left lower lobe dense pneumonia previous and present.. Mediastinum: Mediastinal contours appear normal. Heart size is normal. Bones and chest wall: No suspicious bony lesions. Overlying soft tissues appear unremarkable. IMPRESSION: Stable over time, dense pneumonia retrocardiac left lung base, mild pulmonary edema. Red uced inspiratory volume. Dictated by: Donnie Harrington M.D. on 04/07/2017 at 8:14 Approved by: Donnie Harrington M.D. on 04/07/2017 at 8:15
--- NOTE | 2017-04-07 08:29 | DRSVH ---
PROCEDURE: X-RAY CHEST ONE VIEW, PORTABLE ([id number]) INDICATIONS: Intubated TECHNIQUE: One view of the chest was acquired. COMPARISON: [facility], CR, XR CHEST 1VW (PORTABLE), 04/06/2017, 5:04. [facility], CR, XR CHEST 1VW (PORTABLE), 04/05/2017, 12:18. FINDINGS: Surgical changes and devices: Endotracheal and nasogastric tube positioning normal. A PICC line from left-sided approach extends at least into the atrial caval junction, but is not well-visualized belo w that point. Lungs and pleura: No pleural effusions or pneumothorax. Lungs are abnormal with a dense retrocardia c left lower lobe pneumonia pattern. Mediastinum: Mediastinal contours appear normal. Heart size is normal. Bones and chest wall: No suspicious bony lesions. Overlying soft tissues appear unremarkable. IMPRESSION: Dense retrocardiac left lower lobe pneumonia pattern. Lines and tubes as discussed-PICC line appears to extend at least to the atrial caval junction if not more inferiorly but is obscured b y overlying radiodensity and cardiac motion below that point Dictated by: Donnie Harrington M.D. on 04/07/2017 at 8:27 Approved by: Donnie Harrington M.D. on 04/07/2017 at 8:28
[2017-04-07] MEDS: Piperacillin-Tazo 3.375 Gm Inj 3.375 GM in Dextrose 5% Minibag Plus 50 ML IV SCH ×2 (09:06→16:07)
[2017-04-07] MEDS: Vancomycin Dose per Pharmacist XX SCH (09:50)
[2017-04-07] MEDS: MetoCLOpramide 5 mg/mL 2 mL Inj IVPUSH PRN ×2 (09:59→17:56)
--- NOTE | 2017-04-07 10:29 | NUR ---
NUTRITION FOLLOW-UP: ASSESS:27 YO male with a recent diagnosis of metastatic gastric cancer with family history of Peutz-Jeghers syndrome, and adenocarcinoma of the stomach, bilateral DVTs and GI bleed 1 month ago presented to the ED complaining of sudden onset shortness of breath with minimal exertion onset. He was admitted to CCU with bilateral submassive PE. Today he remains sedated and intubated, on fentanyl and propofol, status post EKOS x 3. Unfortunately, the clot burden remains largely unchanged. He has become septic due to pneumonia. His left lung has collapsed. Enteral feeding rate recently advanced to 60 mL/hr; however, nursing and family reporting that abdomen becoming more distended, which I witnessed, and residuals appear to be increasing. I asked nursing to hold the enteral feeding rate at 50 mL/hr until POC can be revised. PMHx:Metastatic gastric cancer, upper GI bleed 6 weeks ago, liver biopsy 1-1/2 weeks ago, Peutz-Jeghers syndrome, deep venous thrombosis of the lower extremities. DIET:NPO. ENTERAL FEEDING: Jevity 1.5 rate currently held at 50 mL/hr; goal rate 85 mL/hr. Goal rate enteral feeding will provide 2805 kcal, 119 g protein, sufficient to meet approx. 100% kcal / 92% protein needs. LABS: Reviewed. Cr 0.49, Glu 124, Ca 7.8, Total Bili 3.2, AST 160, ALT 75, Alk Phos 319, PAB < 3.0, Procalc 10.14. MEDICATIONS: Reviewed. Fentanyl, reglan, dulcolax, miralax, senna. Propofol rate currently 17.0 mL/hr, providing 449 lipid kcal. NUTRITION FOCUSED PHYSICAL ASSESSMENT: GI symptoms / stool: No stool reported, with recent hx of constipation related to pain medication regimen.Karlos: 11. Skin Integrity: No issues reported. ANTHROPOMETRICS: Current Wt: 80.8 kg, BMI 20.0 kg/m2. Admit weight: 81.0, BMI: 20.0 kg/m2. There has been no weight change since his diagnosis was verified. IBW: 100 kg (81% IBW) ESTIMATED NEEDS (CANCER, UNDERWEIGHT): Calories: 2835 - 3240 kcal (30 - 35 kcal / kg BW) Protein: 122 - 146 g protein (1.5 - 1.8 g / kg BW) Fluid: Approx. 2835 mL (35 mL / kg BW) NUTRITION DIAGNOSIS: 1)Inadequate oral intake related to altered GI function, as evidenced by NPO / vent status, enteral feeding at 50 mL/hr due to increasing residuals - PERSISTS. 2)Increased nutrient needs related to cancer and underweight status, as evidenced by 81% IBW - PERSISTS. INTERVENTION: 1) Will change enteral formula to Vital 1.5, calorically dense, peptide-based formula for patients experiencing malabsorption, maldigestion, or impaired GI function and/or symptoms of GI intolerance. Will initiate Vital 1.5 at 30 mL/hr x 12 hr. Once tolerance established, will advance 5 ml every 4 hr. to goal rate 75 mL/hr, providing 2475 kcal (2924 kcal with Propofol), 112 g protein (134 with 1 packet ProSource liquid protein 2 times per day), meeting approx. 100% nutrient needs. MONITOR/EVALUATE: NPO / vent status, enteral feeding / ProSource tolerance / advance, labs, weight, nutritional status. Follow up per high nutrition risk guidelines.
[2017-04-07] MEDS ORDERED: Vancomycin Inj 1,750 MG in 0.9% Sodium Chloride 500 ML IV ONE (10:45)
--- NOTE | 2017-04-07 11:36 | PROG NOTE ---
[address] [address] PROGRESS NOTE PATIENT: DREA PELAYO : 1990 MR#: [id number] ADMIT: 04/03/2017 JOB ID: [id number] DATE: 04/07/2017 PULMONARY CRITICAL CARE PROGRESS NOTE: The patient is a 27-year-old man with gastric adenocarcinoma, metastatic to the liver, bilateral DVTs, presenting with submassive pulmonary embolism and respiratory failure. INTERVAL HISTORY: He was hemodynamically stable overnight. Had a temperature to 38.3. FiO2 improved to 60% but this morning he had an event where he desaturated once again and had to be on 100% for some time. REVIEW OF SYSTEMS: Could not be obtained. PHYSICAL EXAMINATION: Vital signs reviewed. T-max 38.4, pulse 120s, respirations 20, BP 104/51, sats 94% on 60% FiO2 and 8 cm of PEEP on pressure control of 20. General: Intubated, sedated, currently unresponsive. Chest: Clear bilaterally. Abdomen: Firm, somewhat distended. LABORATORIES: Reviewed. WBC up to 17.9 from 15.3 yesterday, hemoglobin 9 from 9.5, platelets 262. Chemistry reviewed. Procalcitonin is stable at 10.1 compared to 10.8 yesterday. Culture of bronchial washing is growing Staph aureus, susceptibilities to follow. IMAGING: Shows persistent retrocardiac atelectasis. ASSESSMENT: 1. Acute submassive pulmonary emboli, status post EKOS therapy x3 with tPA. 2. Sepsis due to Staphylococcus aureus pneumonia. 3. Left lower lobe collapse/atelectasis. 4. Shock/hypotension. 5. Acute hypoxic respiratory failure, on mechanical ventilation since April 03. 6. Bilateral popliteal deep venous thromboses diagnosed in February 2017. 7. Metastatic gastric adenocarcinoma, status post liver biopsies on March 23. 8. Family history of Peutz-Jeghers syndrome. 9. History of gastrointestinal bleed in February 2017. RECOMMENDATIONS: This complex 27-year-old man with recent diagnosis of metastatic gastric adenocarcinoma presented with a month of pulmonary emboli on April 03. He was intubated for EKOS thrombolytic therapy and has received three rounds of that since. Followup imaging with CT scan on April 05 showed no change in his saddle pulmonary embolism and large clot burden despite the amount of thrombolytics and EKOS he has received. He has also developed worsening oxygenation with left lower lobe collapse and underwent a bronchoscopy yesterday on April 06 which showed diffuse mucosal erythema and inflammation with purulent secretions. Oxygenation improved post bronchoscopy, and he is down to FiO2 of 60% from 100% yesterday but chest x-ray still shows retrocardiac atelectasis. In addition, his BAL fluid is now growing Staph aureus. He has been on Zosyn for a couple of days but given his persistent elevated white blood cell count, elevated procalcitonin, fever and now Staph aureus on the sputum, I would like to start him on vancomycin. His MRSA nasal swab was negative. Of concern also is the fact that he is still not therapeutic on heparin despite heparin drip and multiple boluses since yesterday. For this reason, after discussion with Pharmacy and Dr. Suazo with medical oncology, I am going to switch him to argatroban, which we can monitor with PTT levels for efficacy. I am more comfortable with this since it is a drug that we can actually monitor the effect of rather than alternatives, which we would not be able to as easily monitor such as Pradaxa. This may be a good option for outpatient therapy; however, per discussion with Pharmacy. Spoke with his sister and mother at the bedside and updated them regarding all of the above. Of note, he is having increasing residuals and increasing gastric distention with no bowel movement now for a week. This is despite his bowel regimen, and I suspect the large dose of IV fentanyl he is receiving is contributing. We are going to add Reglan scheduled and also consider an enema later this afternoon if that is not effective. We may want to consider Relistor tomorrow, if needed. He is on PPI b.i.d. for GI prophylaxis, and he is being switched to argatroban drip. He is a FULL CODE. CRITICAL CARE TIME: 90 minutes.
[2017-04-07] MEDS: SODIUM CHLORIDE IV SCH ×2 (12:33)
[2017-04-07] MEDS: ARGATROBAN IV SCH ×2 (12:33)
--- NOTE | 2017-04-07 14:46 | PCM.PNMED ---
Subjective Date of Service Apr 07, 2017 Subjective Patient is sedated and sedated. No ROS and subjective. No overnight events. Exam Vital Signs Vital Sign - Last Date Time Temp Pulse Resp B/P Pulse Ox O2 Delivery O2 Flow Rate FiO2 04/07/17 11:33 Ventilator 04/07/17 11:32 37.6 117 22 104/52 97 60 04/04/17 04:23 4.00 Intake and Output 04/06/17 04/06/17 04/07/17 Cumulative From/Thru 15:00 23:00 07:00 04/03/17 07:34 - 04/07/17 06:09 Intake Total 1617 ml 1531 ml 46871 ml Output Total 550 ml 475 ml 5925 ml Balance 1067 ml 1056 ml 8468 ml Intake Oral 0 ml IV Total 1099 ml 1067 ml 25721 ml Tube Feeding 338 ml 464 ml 1029 ml Packed Cells 351 ml Tube Irrigant 180 ml 340 ml Output Urine Total 550 ml 475 ml 5325 ml Gastric Drainage Total 600 ml # Bowel Movements 0 0 Exam Intubated and sedated. OG tube in place. Anicteric sclera. Lungs are clear with normal rate and effort Heart is regular without murmur gallop or rub Abdomen more tense and distended. Extremities are with 3+ edema. Skin is free of rash or lesions. IVs and Medications Medications Reviewed: Medications were reviewed in detail Lab and Diagnostics Result Diagram: 04/07/17 0814 04/07/17 0255 X-Rays, CTs and MRIs Chest x-ray Stable pulmonary venous engorgement and support devices. Dictated by: New Powers M.D. on 04/03/2017 at 11:01 CT angiogram 1. Multiple, bilateral large pulmonary emboli. 2. Flattening of the cardiac interventricular septum suggesting right heart strain. 3. Hepatic metastatic disease. 4. Findings telephoned to Dr. Nathan Paz on 04/03/17 at 0817 hrs. Dictated by: Louisa Jones MD, PhD on 04/03/2017 at 8:13 Chest x-ray 1. Endotracheal tube and nasogastric tube positioned as described. 2. Mild cardiomegaly and moderate vascular congestion. Dictated by: Tristin Mckenzie M.D. on 04/03/2017 at 9:55 Chest x-ray 1. Endotracheal tube is positioned at the thoracic inlet. 2. Mild cardiomegaly and vascular congestion is similar to the prior study. Dictated by: Tristin Mckenzie M.D. on 04/03/2017 at 10:03 Assessment & Plan Pt is a 27 year old male with a hx of metastatic gastric cancer with family history of Peutz-Jeghers syndrome, and adenocarcinoma of the stomach, bilateral DVTs and GI bleed 1 month ago who presented to the ED complaining of sudden onset shortness of breath with minimal exertion onset yesterday. Admitted for bilateral massive PE. #. Massive bilateral pulmonary emboli with obstructive shock, acute. Slowly improving. - Discussed with family today, who confirmed he was in fact on Lovenox 80 mg daily. He was known to have held treatment for 2 days x2 for procedures. The family will go through his Lovenox stores and try to discern if there were any missed doses. It is unlikely that he developed PEs of this size by simply missing 4 doses, unless he actually missed more. Whether he should continue on Lovenox after this hospitalization likely depends on whether he skipped other doses. He continues to be hypotensive due to acute right heart failure from massive PE. Repeat CT shows unchanged clot burden despite treatment with tPA. Repeat echo is mostly unchanged. MAP remains between 50s - 60s for most of the night. Dr. Olguin is out of town and Dr. Polo will be following. Will discuss case with him and possibility of systemic tPA. - Treatment with EKOS complete The patient has had very slow response to heparin and we will be switching to our argatroban infusion starting today. This will be monitored with the APTT per protocol. He is showing some clinical improvement with regards to her decreased FiO2 now at 0.60 as well as a more stable blood pressure not requiring vasopressors. His map is currently 75. #. Acute hypoxic respiratory failure, POA and improving. - Secondary to PE and collapsed lung. His oxygen requirements increased overnight, which may be due to evolving V/Q mismatch with lysis of the pulmonary emboli and movement of clot into smaller vessels. Also due to collapsed left lower lobe, seen on CXR on 04/05. Possibly due to obstructing mucous plug. Discussed options with family and decided to proceed with bronchoscopy. - Continue mechanical ventilation. - Continue chest physiotherapy as tolerated. - Will proceed with bronchoscopy today #. Pneumonia, new and active. The patient appears to have developed a pneumonia over the last several days. The patient is currently treated with Zosyn and linezolid. She was from bronchoscopy indicated staph aureus with sensitivities pending. The patient also has evidence of left lower lobe collapse likely from secretions. We will continue current antibiotic therapy. The patient's currently on a PEEP of 8. #. Sepsis secondary to HCAP. Acute and improving. - CT angio showed bilateral pleural effusions, worsening bibasilar pneumonia pattern, greater on the left than the right. Worsening leukocytosis, procalcitonin, intermittent fevers. - Continue Zosyn IV, add linezolid - Monitor procalcitonin, CBC. The patient is not requiring vasopressors. #. Anasarca, new and active. The patient has significant volume overload from resuscitation. We will continue to monitor and diuresis as able. #. Acute iron deficiency anemia. Stable. - Secondary to hemodilution from aggressive fluid resuscitation. Possibly secondary to GI bleed from malignant gastric ulcers, but no sign of acute bleed at this time. Hb has been stable, so will switch from PPI drip to BID. - PRBCs on hold. Transfuse for HB <8. - Check H&H daily - Protonix 40 mg IV BID - Monitor for signs of acute bleeding #. Bilateral popliteal DVT, POA and active. - Pt diagnosed with bilateral large DVTs 3 weeks ago, placed on Lovenox. See above discussion on Lovenox. - Argatroban #. Metastatic liver cancer due to poorly differentiated adenocarcinoma. - Diagnosed 6 weeks ago. Biopsy of liver mets revealed poorly differentiated adenocarcinoma. Likely secondary to gastric carcinoma vs pancreatobiliary carcinoma. Possibly related to family history of Peutz-Jeghers syndrome, although less likely given pathology, per Dr. Suazo. - Dr. Suazo of Oncology is following. We appreciate his input. Dangerous meds include fentanyl drip and propofol. GI Prophylaxis: Proton Pump Inhibitor Resuscitation Status: CPR: Attempt Resuscitation Yaakov Fabian MD Apr 07, 2017 14:46
--- NOTE | 2017-04-07 16:01 | PROG NOTE ---
[address] [address] PROGRESS NOTE PATIENT: DREA PELAYO : 1990 MR#: [id number] ADMIT: 04/03/2017 JOB ID: [id number] DATE: 04/06/2017 This is a 27-year-old man with metastatic probable gastric cancer involving the liver with a hypercoagulable state and multiple medical complications including DVT, pulmonary embolism, with hemodynamic compromise, recent identification of Staph pneumonia and sepsis. The original intent had been to treat him last week with FOLFOX chemotherapy but this was truncated due to the development of severe pulmonary embolism. Additionally, heparinization has not been effective with high dose of heparin and achieving a PTT only maximum in the 40s. It is likely that he either has an antithrombin III deficiency related to his liver disease, or effect of his circulating procoagulant from his cancer, or other causes such as high Factor VIII level, which is an acute phase reaction. In any case, Dr. Mirza has already switched the patient to argatroban and he is an excellent choice based on the difficulty of anticoagulation with heparin and multiple possible reasons why that may have been unsuccessful. Subjectively, the patient does appear to be cognizant of speech and conversation around him and can respond with hand motions. He is intubated and sedated, however. He appears comfortable at this time. Head and neck: No obvious mucosal lesions. No icterus. Lung irwin show some mildly coarse rhonchi bilaterally. Cardiac rhythm is regular without the bounding precordium previously evident. Abdomen soft and nontender with some bowel sounds present. Extremities: The peripheral edema is worse than it was on the previous day. LABORATORY VALUES: The white cell count is 15.3 with 84.7 segs, 6.2 lymphocytes, no bands. Hemoglobin 9.5, hematocrit 30.0 and platelets 222. The BUN 14, creatinine 0.62. Electrolytes normal. Calcium 8. Albumin 2.8. Pre-albumin is less than 3. AST 296, ALT 107, alk phos a little bit better at 386. LDH 1168. Bilirubin has risen to 3.3. IMAGING: CT angio performed on April 05 showed multiple bilateral PEs without appreciable improvement compared to the previous angiography of April 03 with bilateral pleural effusions and worsening bibasilar pneumonia. I understand from verbal report that the cardiac echo is unchanged. Bronchoscopy performed by Dr. Mirza for left lower lobe collapse and hypoxia showed inflamed bilateral airways with thick yellowish purulent secretions filling the airways, more in the left lower lobe with bronchial washings showing Staph aureus. Susceptibility testing to follow. ASSESSMENT AND RECOMMENDATIONS: This is a 27-year-old man with a very aggressive metastatic cancer, most likely from gastric origin. This, in and of itself, is very unusual and also carries an adverse prognosis. The family understands this already. Had he been clinically stable and had time allowed, he could have been placed on FOLFOX chemotherapy and one could hope for some improvement as this an effective regimen in this type of cancer. The improvement would be reduction in his tumor burden and possibly reversal of some of his complications including hypercoagulable state. Overall though the long-term outcome is likely to be relapse and increasing difficulty treatment. Unfortunately in the intervening days showed a progressive complicated course with hypercoagulability, pulmonary emboli, DVT, respiratory and cardiovascular compromise and now infection with Staph pneumonia. In addition, anticoagulation has not been successful possibly due to multiple causes including antithrombin deficiency related to his liver disease, possible elevated factor H related to acute phase, and Dr. Mirza's decision to place him on argatroban makes excellent sense. I did consult with Dr. Bonilla at [facility] regarding his hypercoagulability state and he certainly agreed with switching to a thrombin inhibitor. I also consulted with Dr. Pace of Medical Oncology regarding other conversations he had with the family about possibly transferring the patient to [facility] and we both agreed that there would not be a specific new or different treatment that would be offered at [facility] compared to locally and that it would not be in the best interest of the patient to transfer him in this condition. Dr. Pace also agreed that in his current condition, placing him on systemic chemotherapy would be dangerous and could possibly result in fatal complications including tumor lysis syndrome, DIC and further infection, and therefore, we are not anticipating starting chemotherapy. Regarding the goals of care I am sure that the team has briefed the family at length on the prognosis regarding his medical complications, including hypercoagulability, circulatory compromise and now infection. However, it is easy for family to develop false hopes based on the expectation that he will get better from these complications and possibly be able go onto chemotherapy. Currently, it is very uncertain as to whether he will ever get enough recovery to go on to the next phase of treatment and it would be helpful for each of us, including myself, to chemical dependency counselor the family (that includes the patient's father, mother and sister) regarding the potential that the patient will not recover. I have spoken at length with his father more than anyone and he understands this but also understands that it is reasonable at this time to be heroic with our efforts and make an attempt to reverse this process. They also need to understand that even if the patient were in good condition and able to take chemotherapy that it could take months to see a response and that response is likely to be temporary. I think the family is clear on the risks and the situation at present and it is very reasonable to continue the aggressive approach in hopes that he will turn around and stabilize. I will continue to try to present a realistic perspective to the patient's family and to the patient if and when he is able to participate in that kind of conversation.
--- NOTE | 2017-04-07 16:23 | PCM.CONPHA ---
Subjective Date of Service: Apr 07, 2017 VANCOMYCIN Reason for Pharmacy Consult: Vancomycin Dosing Assessment/Plan Assessment/Plan Patient is a 27 y.o. male receiving vancomycin for staph growing in sputum. WBC count is 17.9 and the patient is febrile. Patient is 80 kg, 79 inches tall with a SCr of 0.49 mg/dL-- estimated CrCl of > 120 mL/min. Based on patient parameters vancomycin will be loaded with 1750mg then dosed at 1250mg q8h with a target trough of 15-20 mcg/mL. Trough will be drawn prior to the 5th dose on 04/08 @ 1900. Pharmacy will follow daily and adjust as appropriate. Thank you for the consult in the care of this patient. RWP Sravan Pena Apr 07, 2017 16:23
--- NOTE | 2017-04-07 18:35 | NUR ---
Respiratory/nutrition/sedation Respiratory: Lungs diminished, intermittently coarse. Unable to trigger pt gag, or initiated cough. Suctioning scant amount of thick yellow secretions with ET suction. Shortly after 18:00, pt suddenly desaturated down to low 80s, fi02 increased to 100% and attempted to suction patient. Recovered quickly,oxygen saturation now stable on 80% fi02. Chest physiotherapy ordered for q 4hrs and attempting to lighten sedation to trigger cough. Nutrition/GI: Vital 1.5 tubefeeding ordered at 30cc/hr with 40cc free water flushes q 4hrs. Residuals remain high, > 200cc. Abdomen firm, bowel sounds present. PRN reglan and suppository administered. MD notified of high residuals, tube feedings placed on hold. Plan to readdress nutrition in AM. Sedation/pain: RASS -2 to -3. Fentanyl decreased to 200mcg/hr, plan to attempted to keep continual fentanyl at lower dose and bolus as needed to maintain patient comfort. If able decrease fentanyl to 150mcg/hr overnight. Cardiac: ST per satellite project site monitor. Pressure stable.
[2017-04-07] MEDS: Vancomycin Inj 1,250 MG in 0.9% Sodium Chloride 250 ML IV SCH (19:39)
[2017-04-07] MEDS: Sodium Biphos-Phos 133 mL Enema RECTAL PRN (22:36)
--- NOTE | 2017-04-07 22:39 | PCM.PHAPRO ---
Progress Date of Service: Apr 07, 2017 VANCOMYCIN ARGATROBAN MANAGEMENT A\ 27YO M ADMITTED WITH A METASTATIC POSSIBLY GASTRIC CANCER. THE PATIENT'S CANCER MAY ALSO BE GENERATING A HYPERCOAGULABLE STATE WHICH HAS LEAD TO BILATERAL PE. A HEPARIN INFUSION WAS STARTED BUT DID NOT APPEAR TO BE PROVIDING ADEQUATE ANTICOAGULATION AND SO CHANGED TO AN ARGATROBAN INFUSION. ARGATROBAN WAS STARTED APPROXIMATELY 1230 04/07 AND CURRENTLY THE PT IS ON ARGATROBAN 0.5MCG/KG/MIN APPROXIMATELY 2.4ML/HR. THE FIRST APTT DRAWN 4HRS AFTER THE START FOR IMPAIRED HEPATIC FUNCTION WAS APTT =55SEC. GOAL APTT 42 - 84 SECS. THE ARGATROBAN INFUSION WAS CONTINUE AND THE 2ND APTT DRAWN IN 4HRS WAS APTT= 61.3 SECS P\ PER THE ARGATROBAN PROTOCOL WITH TWO APTTs IN GOAL RANGE WILL CONTINUE THE ARGATROBAN AT 0.5MCG/KG/MIN AND MOVE TO DAILY LEVELS WITH AM LABS. Nelson Barrow [facility] Apr 07, 2017 22:39
[2017-04-08] VITALS (11 sets, daily range): BP systolic 101–113; BP diastolic 53–65; PULSE 112–124; RESP 20–25; O2SAT 86–97
[2017-04-08] MEDS: Piperacillin-Tazo 3.375 Gm Inj 3.375 GM in Dextrose 5% Minibag Plus 50 ML IV SCH ×3 (00:22→15:30)
[2017-04-08] MEDS: Propofol Inj 1,000,000 MCG in IV Premix 1 EACH IV PRN ×7 (00:54→22:54)
[2017-04-08] MEDS: MetoCLOpramide 5 mg/mL 2 mL Inj IVPUSH PRN ×2 (00:54→06:26)
[2017-04-08] MEDS: Chlorhexidine 0.12% 15 mL Oral Solution MT SCH ×6 (00:55→20:27)
[2017-04-08] MEDS: fentaNYL 2,500 mCg/250 mL 2,500 MCG in IV Premix 1 EACH IV SCH ×2 (00:55→14:29)
[2017-04-08] MEDS: Vancomycin Inj 1,250 MG in 0.9% Sodium Chloride 250 ML IV SCH (03:00)
--- NOTE | 2017-04-08 03:13 | NUR ---
respiratory/desats, .60 fio2 per vent, pt desat to upper 80's couple times during evening portion of shift, sx mod amt of thick yellow sputum per ett, hob up, resp rate low 20's, sats mid to upper 90's on .60 fio2, at appox 0130 after CPT, pt's sats dropped to 82%, increased vent to 100%, aggressive lavage done, still difficult to get sats back up, able to wean pt down from 100% to 80% then 60% fio2, sats=95%, ls-left side course rhonchi, right side few faint rhonchi /decreased, oral care done, md aware of desats/resp status, minimal cough noted with sx, day shift rn made md aware of pt's cough status, ogt placement=wnl, lcs, no bm, fleets enema given per family request, abd round/distended/firm, hypoactive bt's initially, now no bt's, md notified, uap=13-14, pitting edema to le's, turn q2hrs, clrt, noted that pt desats on left side, perrla, pt moves arms/feet with stimulation, right radial neida intact, left picc intact, fentanyl gtt 150-175mcg/hr and propofol gtt up from 35-45mcg/kg/min, md wanting fentanyl gtt decreased and propofol gtt increased per report, argatroban gtt per pharmacy dosing and ptt results, see ccu flow sheet, plan:resp support, am labs/cxr/abg's,
[2017-04-08 04:55] LABS: Mean Corpuscular Hemoglobin 23.3 pg (27.0-35.0); Mean Corpuscular Volume 73.2 fL (81-100); Platelet Count 286 bil/L (150-400)
[2017-04-08 05:16] LABS: BASOPHILS % (AUTO) 1 % (0-3); EOSINOPHILS % (AUTO) 0 % (0-5); MONOCYTES % (AUTO) 3 % (4-12); NEUTROPHILS % (AUTO) 84 % (40-74)
--- NOTE | 2017-04-08 07:20 | NUR ---
air leak this am pt noted to have sig air leak, aware, rt called and saw pt, er md in to see pt, sats remained in mid 90's during this time, volumes ok per vent, pt not reintubated per er md, ett moved from 23cm to 27cm per RT, follow up cxr done, md paged that cxr done,sats wnl, good bilateral lung sounds, Dr. Miraz called hospital this am and given update on pt's resp status t/o night-about desats and air leak and CPT held off by RT later on during shift, Dr. Mirza was in agreement with that,
[2017-04-08] MEDS: Polyethylene Glycol (PEG) 17 Gm Powder PO SCH (08:14)
[2017-04-08] MEDS: Pantoprazole 4 mg/mL 10 mL Inj IVPUSH SCH ×2 (08:16→15:30)
[2017-04-08] MEDS: [UNRECOGNIZED DRUG - REMARK] XX SCH (08:16)
--- NOTE | 2017-04-08 08:19 | DRSVH ---
PROCEDURE: X-RAY CHEST ONE VIEW, PORTABLE ([id number]) INDICATIONS: tube placement TECHNIQUE: One view of the chest was acquired. COMPARISON: [facility], CR, XR CHEST 1VW (PORTABLE), 04/08/2017, 4:44. [facility], CR, XR CHEST 1VW (PORTABLE), 04/07/2017, 7:51. FINDINGS: Surgical changes and devices: A left PICC is present, the tip of which is likely in the right atrium. An endotracheal tube is present, the tip of which is 2.4 cm above the alen. An NG tube is present, the tip of which is not visualized. Lungs and pleura: No pleural effusions or pneumothorax. Lungs are clear. Mediastinum: Mediastinal contours appear normal. Heart size is normal. Bones and chest wall: No suspicious bony lesions. Overlying soft tissues appear unremarkable. IMPRESSION: 1. No acute cardiopulmonary findings. 2. Left PICC, the tip of which may be in the right atrium. Consider retracting 1-2 cm. 3. Endotracheal tube 2.4 cm above the alen. Dictated by: Mayela Chavez M.D. on 04/08/2017 at 8:16 Approved by: Mayela Chavez M.D. on 04/08/2017 at 8:17
[2017-04-08] MEDS: Vancomycin Dose per Pharmacist XX SCH (08:29)
--- NOTE | 2017-04-08 08:54 | DRSVH ---
PROCEDURE: X-RAY CHEST ONE VIEW, PORTABLE ([id number]) INDICATIONS: Intubated TECHNIQUE: One view of the chest was acquired. COMPARISON: [facility], CR, XR CHEST 1VW (PORTABLE), 04/07/2017, 7:51. FINDINGS: Surgical changes and devices: An endotracheal tube is present at the thoracic inlet. An NG tube is pr esent with the tip in the gastric fundus. A right PICC is present with the tip projected over the rig ht atrium. Lungs and pleura: Patchy opacities and probable effusion are present at the left lung base, unchanged . Mediastinum: Mediastinal contours appear normal. Heart size is normal. Bones and chest wall: No suspicious bony lesions. Overlying soft tissues appear unremarkable. IMPRESSION: Stable chest. Dictated by: Mayela Chavez M.D. on 04/08/2017 at 8:51 Approved by: Mayela Chavez M.D. on 04/08/2017 at 8:52
[2017-04-08] MEDS ORDERED: Methylnaltrexone 12 mg/0.6 mL Inj SUBQ ONE (09:55)
[2017-04-08] MEDS: ARGATROBAN IV SCH ×2 (12:30)
[2017-04-08] MEDS: SODIUM CHLORIDE IV SCH ×2 (12:30)
[2017-04-08] MEDS ORDERED: Furosemide 10 mg/mL 2 mL Inj IVPUSH ONE (13:10)
--- NOTE | 2017-04-08 13:36 | PROG NOTE ---
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 INTERVAL HISTORY: He continued to have episodes of desaturation overnight acutely which resolved with suctioning. He was briefly on 100%, back down to 60% this morning. No further fever overnight and hemodynamically stable without any episodes of hypotension. He has tolerated the argatroban infusion well and has been therapeutic on his PTT. REVIEW OF SYSTEMS: Could not be obtained. PHYSICAL EXAMINATION: Vital signs reviewed. Temperature 36.6, pulse 117, respirations 22, BP 112/63, sats 96% on 60% FiO2 and 10 cm of PEEP on pressure control with 20 cm. General: Intubated, sedated, but is moving a little bit more. Not opening eyes or following commands for me. Chest: Clear to auscultation. LABORATORIES: Reviewed. WBC has gone up further to 21.3 from 17.9, hemoglobin 9.3, platelets 286. Coags show PTT has been therapeutic since noon yesterday. Chemistry panel reviewed. Procalcitonin is down to 8.9 from 10.1 yesterday. Cultures showed BAL is growing Staph aureus which is not MSSA, i.e. methicillin sensitive Staph aureus. Chest x-ray reviewed and shows retrocardiac atelectasis but really improved compared to prior. ET tube was high on initial x-ray but has been advanced since and is in appropriate position now. There is no ABG this morning. ASSESSMENT AND RECOMMENDATIONS: 1. Acute submassive saddle pulmonary emboli, status post EKOS therapy x3 with tPA infusion. 2. Gastric adenocarcinoma with liver metastases status post liver biopsies on March 23. 3. Sepsis due to MSSA pneumonia confirmed by bronchoscopy. 4. Left lower lobe collapse/atelectasis--improving. 5. Shock/hypotension--improved. 6. Acute hypoxic respiratory failure on mechanical ventilation since April 03. 7. Family history of Peutz-Jeghers syndrome. 8. Bilateral popliteal DVTs, diagnosed February 2017. 9. History of GI bleed in February 2017. A 27-year-old critically ill man with recent diagnosis of metastatic gastric adenocarcinoma. Presented with saddle pulmonary embolism associated with intermittent episodes of hypotension. He was treated with EKOS catheter directed thrombolytic therapy for three days after presentation and despite that, a followup CT shows no change in massive clot burden. He has also developed what appears to be a pneumonia with Staph aureus, methicillin sensitive, confirmed by bronchoscopy and lavage. He had left lower lobe collapse which causes significant decline in oxygenation that improved after bronchoscopy but continues to have intermittent episodes of atelectasis and hypoxia that resolve usually with suctioning. Currently he is on 60% FiO2 and 10 cm of PEEP and we turned him down again this morning to 50%. Will continue weaning down as tolerated for sats above 95% and also try to bring the PEEP down to 5 cm. We did attempt chest PT intermittently but it is not clear really how much of this is helping so I do not feel strongly about aggressively continuing this. If he gets to 40% FiO2 or less, I would like to put him on a spontaneous breathing trial/ pressure support trial. We have also tried to come down on his sedation and pain medication significantly because his sedation seemed too deep to me. He was on as much as 275 mcg of fentanyl yesterday and is now down to 150-175 mcg with boluses as needed. If needed we need to go down further. He has not moved his bowels in a week and his abdomen is progressively more distended and firm despite aggressively trying to have this move with a bowel regimen, enema, Reglan. We are going to go ahead and give him a dose of Relistor today and I am hoping this will help. His tube feeds are on hold since last night because of increasing abdominal distention and high residuals. He is on PPI b.i.d. for GI prophylaxis. He is on argatroban drip for his PE which is therapeutic. Updated his mom and sister at the bedside today. CRITICAL CARE TIME: 60 minutes.
--- NOTE | 2017-04-08 13:58 | PCM.PNMED ---
Subjective Date of Service Apr 08, 2017 Subjective Patient is intubated and sedated. Subjective and review of systems are not obtainable. No overnight events. Long discussion with patient's mother and sister at bedside. He is slowly improving clinically. He continues to be constipated and is having his fentanyl drip weaned now down from 275-175. Exam Vital Signs Vital Sign - Last Date Time Temp Pulse Resp B/P Pulse Ox O2 Delivery O2 Flow Rate FiO2 04/08/17 12:00 37.5 117 20 101/57 96 Mechanical Ventilator 50 04/04/17 04:23 4.00 Intake and Output 04/07/17 04/07/17 04/08/17 Cumulative From/Thru 15:00 23:00 07:00 04/03/17 07:34 - 04/08/17 06:38 Intake Total 2086 ml 1508 ml 93240 ml Output Total 500 ml 700 ml 7125 ml Balance 1586 ml 808 ml 89483 ml Intake Oral 0 ml IV Total 1628 ml 1508 ml 36510 ml Tube Feeding 378 ml 1407 ml Packed Cells 351 ml Tube Irrigant 80 ml 420 ml Output Urine Total 500 ml 600 ml 6425 ml Gastric Drainage Total 100 ml 700 ml # Bowel Movements 0 0 Exam Today and sedated. He does have spontaneous movement of his head. Pupils are conjugate. ET and OG tube are in place. Icteric sclera. Lungs are clear with normal rate and effort him as some coarse sounds but no wheezing. Good air movement. Heart is regular without murmur gallop or rub Abdomen is tense and distended. Hypotympanic bowel tones. Extremities are with gross edema. Hands are also edematous. Skin is free of rash or lesions. IVs and Medications Medications Reviewed: Medications were reviewed in detail Lab and Diagnostics Result Diagram: 04/08/17 0430 04/08/17 0430 X-Rays, CTs and MRIs Chest x-ray Stable pulmonary venous engorgement and support devices. Dictated by: New Powers M.D. on 04/03/2017 at 11:01 CT angiogram 1. Multiple, bilateral large pulmonary emboli. 2. Flattening of the cardiac interventricular septum suggesting right heart strain. 3. Hepatic metastatic disease. 4. Findings telephoned to Dr. Nathan Paz on 04/03/17 at 0817 hrs. Dictated by: Louisa Jones MD, PhD on 04/03/2017 at 8:13 Chest x-ray 1. Endotracheal tube and nasogastric tube positioned as described. 2. Mild cardiomegaly and moderate vascular congestion. Dictated by: Tristin Mckenzie M.D. on 04/03/2017 at 9:55 Chest x-ray 1. Endotracheal tube is positioned at the thoracic inlet. 2. Mild cardiomegaly and vascular congestion is similar to the prior study. Dictated by: Tristin Mckenzie M.D. on 04/03/2017 at 10:03 Assessment & Plan Pt is a 27 year old male with a hx of metastatic gastric cancer with family history of Peutz-Jeghers syndrome, and adenocarcinoma of the stomach, bilateral DVTs and GI bleed 1 month ago who presented to the ED complaining of sudden onset shortness of breath with minimal exertion onset yesterday. Admitted for bilateral massive PE. #. Massive bilateral pulmonary emboli with obstructive shock, acute. Slowly improving. Switched from heparin drip to Argatroban drip. PTT responding better. - Discussed with family today, who confirmed he was in fact on Lovenox 80 mg daily. He was known to have held treatment for 2 days x2 for procedures. The family will go through his Lovenox stores and try to discern if there were any missed doses. It is unlikely that he developed PEs of this size by simply missing 4 doses, unless he actually missed more. Whether he should continue on Lovenox after this hospitalization likely depends on whether he skipped other doses. He continues to be hypotensive due to acute right heart failure from massive PE. Repeat CT shows unchanged clot burden despite treatment with tPA. Repeat echo is mostly unchanged. MAP remains between 50s - 60s for most of the night. Dr. Olguin is out of town and Dr. Polo will be following. Will discuss case with him and possibility of systemic tPA. - Treatment with EKOS complete The patient has had very slow response to heparin and we switched to an argatroban infusion starting yesterday. This will be monitored with the APTT per protocol. He is showing some clinical improvement with regards to her decreased FiO2 now at 0.60 as well as a more stable blood pressure not requiring vasopressors. He continues to maintain a good blood pressure and was down to 50% FiO2 for 2 hours today. #. Acute hypoxic respiratory failure, POA and improving. - Secondary to PE and collapsed lung. His oxygen requirements increased overnight, which may be due to evolving V/Q mismatch with lysis of the pulmonary emboli and movement of clot into smaller vessels. Also due to collapsed left lower lobe, seen on CXR on 04/05. Possibly due to obstructing mucous plug. Discussed options with family and decided to proceed with bronchoscopy. - Continue mechanical ventilation. - Continue chest physiotherapy as tolerated. - He continues to show some improvement with regards to decreasing his FiO2. #. Pneumonia, new and active. The patient appears to have developed a pneumonia over the last several days. The patient is currently treated with Zosyn and linezolid. She was from bronchoscopy indicated staph aureus with sensitivities pending. The patient also has evidence of left lower lobe collapse likely from secretions. We will continue current antibiotic therapy. Continue current antibiotics. #. Sepsis secondary to HCAP. Acute and improving. - CT angio showed bilateral pleural effusions, worsening bibasilar pneumonia pattern, greater on the left than the right. Worsening leukocytosis, procalcitonin, intermittent fevers. - Continue Zosyn IV, add linezolid - Monitor procalcitonin, CBC. The patient is not requiring vasopressors. #. Anasarca, new and active. The patient has significant volume overload from resuscitation. We will continue to monitor and diuresis as able. Lasix 20 mg IV 1 given today. #. Acute iron deficiency anemia. Stable. - Secondary to hemodilution from aggressive fluid resuscitation. Possibly secondary to GI bleed from malignant gastric ulcers, but no sign of acute bleed at this time. Hb has been stable, so will switch from PPI drip to BID. - PRBCs on hold. Transfuse for HB <8. - Check H&H daily - Protonix 40 mg IV BID - Monitor for signs of acute bleeding #. Bilateral popliteal DVT, POA and active. - Pt diagnosed with bilateral large DVTs 3 weeks ago, placed on Lovenox. See above discussion on Lovenox. - Argatroban #. Metastatic liver cancer due to poorly differentiated adenocarcinoma. - Diagnosed 6 weeks ago. Biopsy of liver mets revealed poorly differentiated adenocarcinoma. Likely secondary to gastric carcinoma vs pancreatobiliary carcinoma. Possibly related to family history of Peutz-Jeghers syndrome, although less likely given pathology, per Dr. Suazo. - Dr. Suazo of Oncology is following. We appreciate his input. Dangerous meds include fentanyl drip and propofol. GI Prophylaxis: Proton Pump Inhibitor Resuscitation Status: CPR: Attempt Resuscitation Yaakov Fabian MD Apr 08, 2017 13:58
--- NOTE | 2017-04-08 16:13 | NUR ---
Social Work: Update/Multidisciplinary Rounds D: Per EMR review, pt is a 27 year old male admitted for bilateral PE, Adenocarcinoma on day 5 of hospitalization. Pt discussed in multidisciplinary rounds; pt remains in CCU intubated and sedated. At this time, pt's family are receptive to d/c planning from [employer] when needs are known. No SW needs identified in rounds at this time as pt remains clinically complex. A: Pt who was previously independent. P: Evolving; [employer] to continue to follow to assess for pt's discharge needs and assist with safe discharge planning. Tammy Wilson [employer]
[2017-04-08] MEDS ORDERED: Vancomycin Serum Trough XX ONE (19:00)
[2017-04-09] VITALS (15 sets, daily range): BP systolic 105–118; BP diastolic 57–71; PULSE 118–133; RESP 15–28; O2SAT 91–96
[2017-04-09] MEDS: Piperacillin-Tazo 3.375 Gm Inj 3.375 GM in Dextrose 5% Minibag Plus 50 ML IV SCH ×2 (00:28→08:30)
[2017-04-09] MEDS: Chlorhexidine 0.12% 15 mL Oral Solution MT SCH ×7 (00:29→23:31)
--- NOTE | 2017-04-09 02:05 | NUR ---
family disposition pt's father expressing fustration to pt's sister at beginning of shift that he does not know specifics of pt's care and specific lab results, pt's sister works at [employer] in family , she has been explaining to pt's father (Roberto) over last couple of days what has been happening with pt care during the day when he is at work, pt's father Roberto expressed fustration that he is gone during the day and has not spoken directly with the doctors about his sons care, staff noted that he is much more anxious and upset tonight with what he sees as lack of progress vs last night, he was fustrated that pt had desated during day shift and that the fio2 on the vent had been left at .80 instead of back down to .60 where it had been last night, he wanted more aggressive weaning, he was concerned that pt is not getting nutrition and that pt had not yet had a bm, he was stating that pt should be treated much more aggressively to get pt to have a bm, he was concerned with placement of the ett ventura, over all he would like to see much more 24 hour aggressive treatment to help his son get better, fathers questions about pt's status and treatment were also answered per nursing staff, Dr. Tucker paged and aware of pt's father's concerns and paged again when he asked if he could speak with Dr. Garrett Walker in to see pt and to speak with his father and sister, some anxiety appeared to be relieved, Dr. Tucker states she will pass on to am doctor that 10:00 am is a good time for family to have family conference with doctors to discuss care, pt's father is requesting everyone to "look at the whole picture" in regards to his son's care, pt's father thanked nursing staff after being able to speak with md and went to sleep on pull out couch, charge nurse for ccu also stopped by pt's room to speak with the father to see if there were any more questions or concerns, father appeared satisfied with answers from , nursing staff spoke with pharmacy about possible nutrition for pt besides tf due to abd distention/high tf residuals yesterday and no bt's/no bm, pharmacy states, if ordered, tpn not available until 2100, 04/09/17, spoke with pharmacy and md about any other meds to give pt to help facilitate a bm, pharmacy suggested maybe magnesium sulfate 15ml bid, stated that she did not want any more meds at this time and to give relistor time to work,
[2017-04-09] MEDS: Propofol Inj 1,000,000 MCG in IV Premix 1 EACH IV PRN ×6 (02:29→22:39)
--- NOTE | 2017-04-09 02:58 | NUR ---
respiratory/abdomen fio2 on vent titrated down from .80 to .60, sats= 94-97%, mostly 94-95%, hob up, resp rate=low 20's /12, when pt stimulated resp rate increased to low 30's, 3ml propofol bolus effective in helping with distress, ls=minimally course /decreased, air movement heard t/o, sx sml amount of thick creamy sputum per ett, oral care done, pt's father requesting more aggressive fio2 weaning, Dr. Mirza's note states sat goal of 95%, pt shakes head "no"' when asked if in pain, intermittent movement of extremities seen, pt moves head back and forth with stimulation, pt sedated on fentanyl gtt at 175mcg/hr, propofol gtt at 50mcg/kg/min, effective, pt desats when turned to left side, pt turned to back and right and bed set to clrt, tele- st, hr 115-120, bp stable, temp=37.3 ax, warm to touch, abd round/firm/distended, no bt's, no bm, ogt placement=wnl, intra abd pressure=15, right a line intact left picc intact, pitting le edema, akin uop per f/c see ccu flow sheet, plan: resp support, comfort, hopefully family conference today per family request to discuss pt's plan of care,
[2017-04-09] MEDS: fentaNYL 2,500 mCg/250 mL 2,500 MCG in IV Premix 1 EACH IV SCH ×2 (03:35→13:23)
--- NOTE | 2017-04-09 04:31 | ABG ---
DateTimeAnalyzed 04:23:00 -_ pH ____7.446 - 7.350 7.450 pCO2 ___33.3__ -mmHg 35.0 45.0 pO2 ___75.1__ -mmHg 69.0 116 HCO3- ___22.6__ -mmol/L 22.0 26.0 ABE ___-0.6__ -mmol/L -2.0 2.0 tHb ____9.9__ -g/dL 12.0 18.0 O2Hb ___92.7__ -% COHb ____1.2__ -% 0.0 1.5 MetHb ____1.1__ -% 0.4 1.5 sO2 ___94.9__ -% 25.0 FIO2 ___60.0__ -% PEEP ___10.0__ -cmH2O Vt __710.0__ -L Drawn By LT - Date/Time Notified____ 04:30:00 -_ Spontaneous_RR ___24.0__ -b/min Oxygen Device 1 VENTILATOR - Notified By LT - Notified Whom KUNNY, RN - B 760 -mmHg tO2 ___13.0__ -Vol% Yaakov test N/A -
[2017-04-09 04:37] LABS: Mean Corpuscular Volume 71.7 fL (81-100); Platelet Count 379 bil/L (150-400)
[2017-04-09 05:02] LABS: BASOPHILS % (AUTO) 0 % (0-3); EOSINOPHILS % (AUTO) 0 % (0-5); MONOCYTES % (AUTO) 6 % (4-12); Magnesium 2.2 mg/dL (1.6-2.6); NEUTROPHILS % (AUTO) 82 % (40-74); Phosphorus 2.6 mg/dL (2.5-4.9)
--- NOTE | 2017-04-09 07:02 | NUR ---
this am pt's cxr done this am, front bath done, sats on .60 fio2 down to 91-92%, sx done per rt, minimal amount of thick yellow sputum out, hob up, fio2 increased to .70, ls more rhonchorous this am, aware of increase in fio2 and lung sounds, no new orders, abg's done this am also,
[2017-04-09] MEDS: Pantoprazole 4 mg/mL 10 mL Inj IVPUSH SCH ×2 (08:28→16:23)
[2017-04-09] MEDS: Polyethylene Glycol (PEG) 17 Gm Powder PO SCH ×2 (08:29→19:52)
[2017-04-09] MEDS: [UNRECOGNIZED DRUG - REMARK] XX SCH (08:30)
[2017-04-09] MEDS ORDERED: Furosemide 10 mg/mL 2 mL Inj IVPUSH ONE (09:20)
[2017-04-09] MEDS ORDERED: TPN Per Pharmacist XX ONE (09:40)
--- NOTE | 2017-04-09 10:21 | NUR ---
NUTRITION FOLLOW-UP: ASSESS: 27 YO male with a recent diagnosis of metastatic gastric cancer with family history of Peutz-Jeghers syndrome admitted to CCU for bilateral DVTs and sudden onset shortness of breath. Pt remains intubated. He has become septic due to pneumonia. TF on hold due to high residuals and lack of bowel movement. TPN to start today. Family meeting planned this morning. PMHx: Metastatic gastric cancer, upper GI bleed, liver biopsy, Peutz-Jeghers syndrome, LE DVTs. DIET: NPO. ENTERAL FEEDING: (ON HOLD) Vital 1.5 with goal 75 mL/hr. LABS: Reviewed. Cr 0.50, Glu 112, CA 8.2, AST 84, ALT 46, Alk Phos 430, Alb 2.5 MEDICATIONS: Reviewed. Fentanyl, reglan, Dulcolax, miralax, senna. Propofol rate currently 24.0 mL/hr, providing 634 lipid kcal. GI: No stool reported, with recent hx of constipation related to pain medication regimen. SKIN: No issues reported. ANTHROPOMETRICS: Current Wt: 80.8 kg, BMI 20.0 kg/m2. Admit weight: 81.0, IBW: 100 kg (81% IBW) ESTIMATED NEEDS (CANCER): Calories: 2534-5503 kcal/day (30-35 kcal/kg BW) Protein: 122-146 g/day (1.5-1.8 g/kg BW) Fluid: Approx. 2835 mL (35 mL/kg BW) NUTRITION DIAGNOSIS: 1) Inadequate oral intake related to altered GI function, as evidenced by NPO/vent status, enteral feeding on hold - PERSISTS. 2) Increased nutrient needs related to cancer and underweight status, as evidenced by 81% IBW - PERSISTS. INTERVENTION: 1) Recommend starting at Dex 200 g, AA 85 g, lipids 30 g to provide 1150 kcal (1784 TPN+Propofol), 90 g protein meeting 1340 kcal, 90 g protein; meeting 63% calorie, 74% protein needs. Recommendations given to Pharmacy. 2) Once TPN tolerance established, advance to eventual goal TPN of Dex 470 g, AA 145 g, Lipids 70 g to provide 2878 kcal, 145 g protein; meeting 100% of calorie/protein needs. (56% CHO, 20% PROTEIN, 24% LIPIDS). Adjust goal rate based on Propofol rate, current goal is without Propofol included. 3) If able restart TF of Vital 1.5 at 10 ml/hr, once tolerance established, will advance 5 ml every 4 hr. to goal rate 75 mL/hr, providing 2475 kcal (3109 kcal with Propofol), 112 g protein (134 with 1 packet [employer] liquid protein 2 times per day), meeting approx. 100% nutrient needs. MONITOR/EVALUATE: NPO/vent status, TPN start, labs, weight, POC, GI/nutrition status. Follow per high nutrition risk guidelines.
[2017-04-09] MEDS: Sodium Biphos-Phos 133 mL Enema RECTAL PRN (11:10)
[2017-04-09] MEDS: ARGATROBAN IV SCH ×2 (12:14)
[2017-04-09] MEDS: SODIUM CHLORIDE IV SCH ×2 (12:14)
[2017-04-09] MEDS: NAFCILLIN IV SCH ×8 (12:17→23:30)
--- NOTE | 2017-04-09 12:42 | PCM.PHAPRO ---
Progress TPN Patient ID: I. Fluid Status II. Chem III. Glycemic control IV. Macronutrients Todays TPN PARENTERAL NUTRITION ORDERS 1 - Standard Hang Time: 2100 Substrates Total kcal: 1320 AMINO ACIDS 85 g DEXTROSE 200 g Total Volume (mL): 2400 LIPIDS 30 g Sterile Water for Injection mL To Infuse Over (hrs): 24 Total Volume 2400 mL At at a rate of (mL/hr): 100 Additives Sodium Chloride 80 mEq "typical" daily requirements Sodium Acetate 40 mEq Sodium 50-120mEq Potassium Chloride 50 mEq Potassium 60-120mEq Potassium Phosphate 40 mEq Phosphate 20-40mEq Calcium Gluconate 9.3 mEq Magnesium 8-32mEq Magnesium Sulfate 12 mEq Calcium 9-22mEq Acetate* 80-120mEq Chloride* 80-120mEq Regular Insulin units *Depending on acid-base status Famotidine mg Multivitamins 1 std dose Insulin Regimen Trace Elements 1 std dose none Thiamine mg Regular Low Intensity Subcut Folic Acid mg Regular Medium Intensity Subcut Ascorbic Acid mg Regular High Intensity Subcut Regular Insulin Infusion Other: Special Instructions: To be infused via central line only. For delay or inturruption of TPN contact the pharmacist for alternative replacement solution. Signature Date: DREA PELAYO [address] [place] [address] Joshua Floyd Pharm D Apr 09, 2017 12:42
--- NOTE | 2017-04-09 14:44 | DRSVH ---
PROCEDURE: X-RAY CHEST ONE VIEW, PORTABLE ([id number]) INDICATIONS: intubated TECHNIQUE: One view of the chest was acquired. COMPARISON: [facility], CR, XR CHEST 1VW (PORTABLE), 04/06/2017, 5:04. [facility], CR, XR CHEST 1VW (PORTABLE), 04/08/2017, 5:49. FINDINGS: Surgical changes and devices: ETT tip projected 5 cm above the alen. Nasogastric tube tip traverse s the GE junction. Left PICC present tip projected over the lower SVC. Lungs and pleura: No pleural effusions or pneumothorax. Retrocardiac airspace opacity redemonstrate d and small left pleural effusion. Mediastinum: Mediastinal contours appear normal. Heart size is normal. Bones and chest wall: No suspicious bony lesions. Overlying soft tissues appear unremarkable. IMPRESSION: 1. Stable support lines and tubes. 2. Small left pleural effusion and retrocardiac consolidation consistent with compressive atelectasis versus aspiration/infection. Dictated by: Jak Ortiz [facility] Interpreted: Donnie Harrington MD on 04/09/2017 at 10:49 Approved by: Donnie Harrington M.D. on 04/09/2017 at 14:42
[2017-04-09] MEDS: Acetaminophen IV 1,000 MG in IV Premix 1 EACH IV PRN ×2 (16:35→22:39)
--- NOTE | 2017-04-09 16:50 | PCM.PNMED ---
Subjective Date of Service Apr 09, 2017 Subjective Remains intubated and sedated, intra-abdominal pressures running approximately 15. Still has not had a bowel movement, given additional enema with no effect. FiO2 attempt to wean with resultant desensitization. Long discussion with patient's mother and father and sister regarding current treatment plan, goals of care and overall prognosis. Exam Vital Signs Vital Sign - Last Date Time Temp Pulse Resp B/P Pulse Ox O2 Delivery O2 Flow Rate FiO2 04/09/17 16:32 130 116/70 94 100 04/09/17 15:47 Ventilator 04/09/17 15:47 37.7 26 04/04/17 04:23 4.00 Intake and Output 04/08/17 04/08/17 04/09/17 Cumulative From/Thru 15:00 23:00 07:00 04/03/17 07:34 - 04/09/17 04:00 Intake Total 934 ml 44826 ml Output Total 850 ml 7975 ml Balance 84 ml 92185 ml Intake Oral 0 ml IV Total 934 ml 36241 ml Tube Feeding 1407 ml Packed Cells 351 ml Tube Irrigant 420 ml Output Urine Total 850 ml 7275 ml Gastric Drainage Total 700 ml # Bowel Movements 0 Exam General: Intubated and sedated. Spontaneous movement of his head, responsive to painful stimuli. HEENT: Normocephalic, atraumatic. Scleral icterus Cardiovascular: Regular rate and rhythm with no murmurs, rubs, or gallops appreciated Pulmonary: Clear to auscultation bilaterally with no crackles, wheezes, or rhonchi. Abdomen: Distended and tense to palpation. Extremities: Lower extremity pitting edema to mid tibia. Bilateral upper extremity hand edema Skin: Warm to palpation, normal turgor Neurological: Intubated and sedated IVs and Medications Medications Reviewed: Medications were reviewed in detail Lab and Diagnostics Result Diagram: 04/09/1741904/09/17 042 X-Rays, CTs and MRIs Chest x-ray Stable pulmonary venous engorgement and support devices. Dictated by: New Powers M.D. on 04/03/2017 at 11:01 CT angiogram 1. Multiple, bilateral large pulmonary emboli. 2. Flattening of the cardiac interventricular septum suggesting right heart strain. 3. Hepatic metastatic disease. 4. Findings telephoned to Dr. Nathan Paz on 04/03/17 at 0817 hrs. Dictated by: Louisa Jones MD, PhD on 04/03/2017 at 8:13 Chest x-ray 1. Endotracheal tube and nasogastric tube positioned as described. 2. Mild cardiomegaly and moderate vascular congestion. Dictated by: Tristin Mckenzie M.D. on 04/03/2017 at 9:55 Chest x-ray 1. Endotracheal tube is positioned at the thoracic inlet. 2. Mild cardiomegaly and vascular congestion is similar to the prior study. Dictated by: Tristin Mckenzie M.D. on 04/03/2017 at 10:03 Assessment & Plan Pt is a 27 year old male with a hx of metastatic gastric cancer with family history of Peutz-Jeghers syndrome, and adenocarcinoma of the stomach, bilateral DVTs and GI bleed 1 month ago. Admitted for bilateral massive PE and acute hypoxic respiratory failure #. Massive bilateral pulmonary emboli with obstructive shock, acute. Slowly improving. -Confirmed home dose of Lovenox 80 mg daily, most likely missing intermittent dosing prior to admission -Repeat CT shows unchanged clot burden despite treatment with tPA and EKOS 3. -Switched from heparin drip to Argatroban drip. PTT responding better. -Continue to attempt to wean FiO2 #. Acute hypoxic respiratory failure, POA ongoing. - Secondary to PE and collapsed lung. Unable to successfully decreased FiO2 for prolonged periods, which may be due to evolving V/Q mismatch with lysis of the pulmonary emboli and movement of clot into smaller vessels. Also due to collapsed left lower lobe, seen on CXR on 04/05. Possibly due to obstructing mucous plug. - Additional bronchoscopy today 04/09/2017 - Continue mechanical ventilation. - Continue chest physiotherapy as tolerated. #. Pneumonia, new and active. The patient appears to have developed a pneumonia over the last several days. Bronchial washing showed staph aureus She was from bronchoscopy indicated staph aureus resistant to erythromycin. The patient also has evidence of left lower lobe collapse likely from secretions. -Discontinue Zosyn -Continue nafcillin -Pro calcitonin continues to trend down -Bronchoscopy as above #. Sepsis secondary to HCAP. Acute and improving. - CT angio showed bilateral pleural effusions, worsening bibasilar pneumonia pattern, greater on the left than the right. Worsening leukocytosis, procalcitonin, intermittent fevers. - Continue nafcillin - Monitor procalcitonin, CBC. The patient is not requiring vasopressors. #. Anasarca, new and active. The patient has significant volume overload from resuscitation. We will continue to monitor and diuresis as able. Additional Lasix 20 mg IV 1 #. Acute iron deficiency anemia. Stable. - Secondary to hemodilution from aggressive fluid resuscitation. Possibly secondary to GI bleed from malignant gastric ulcers, but no sign of acute bleed at this time. Hb has been stable, so will switch from PPI drip to BID. - PRBCs on hold. Transfuse for HB <8. - Check H&H daily - Protonix 40 mg IV BID - Monitor for signs of acute bleeding #. Bilateral popliteal DVT, POA and active. - Pt diagnosed with bilateral large DVTs 3 weeks ago, placed on Lovenox. See above discussion on Lovenox. - Argatroban #. Metastatic liver cancer due to poorly differentiated adenocarcinoma. - Diagnosed 6 weeks ago. Biopsy of liver mets revealed poorly differentiated adenocarcinoma. Likely secondary to gastric carcinoma vs pancreatobiliary carcinoma. Possibly related to family history of Peutz-Jeghers syndrome, although less likely given pathology, per Dr. Suazo. - Dr. Suazo of Oncology is following. We appreciate his input. Dangerous meds include fentanyl drip and propofol. GI Prophylaxis: Proton Pump Inhibitor Resuscitation Status: CPR: Attempt Resuscitation Attending Statement The patient was seen and examined together with Dr. Huizar on April 10 and I agree with the history, exam findings, and plan as outlined in the note above. I did participate in all aspects of the services provided today, including documentation and the plan of care. We will continue to support the patient on mechanical ventilator for acute respiratory failure from pulmonary emboli and pneumonia, MSSA. The patient remains anasarca from his right failure. We will continue to have discussions regarding level of care with the family. At this point patient remains too tenuous for chemotherapy. BRICE HUIZAR DO Apr 09, 2017 16:50 Yaakov Fabian MD Apr 19, 2017 15:42 - Dr. Suazo of Oncology is following. We appreciate his input. Dangerous meds include fentanyl drip and propofol. GI Prophylaxis: Proton Pump Inhibitor Resuscitation Status: CPR: Attempt Resuscitation BRICE HUIZAR DO Apr 09, 2017 16:50
[2017-04-09] MEDS ORDERED: Lidocaine PF 2% 10 mL Inj ONE (17:18)
[2017-04-09] MEDS ORDERED: Lidocaine 2% 5 mL Topical Jelly ONE (17:18)
--- NOTE | 2017-04-09 18:42 | NUR ---
Note Family conference this morning- family asked to lower sedation/pain medication to see if patient is able to wake up and interact with family. Prior to decreasing pain/sedation meds family was educated about patients possible response to this action. Patient was already over-breathing ventilator rate of 12 breaths per min by10-15 breaths and was showing some anxiety increased respiratory rate and increase in heart rate -gloriae stimulated. At 1230 propofol was decreased from 50mcg/kg/min to 40mcg/kg/min and fentanyl drip to 150mcg/h from 175/mcg/h. within 15 min patient appeared to be anxious. His respiratory rate increased to 35-45 breathes per min, heart rate increased to 140-145 ranges. Patient was re-sedated with increasing medication/drips to previous levels- patient was able to relax. Patient received multiple medications to facilitate a bowel movement since he has not have one not have since before his admit to the hospital per family stating. Abdomen remained distended and thought with no audible bowel sounds trough all abdominal irwin. OG to low continues suction with minimal amount of green/brown gastric output- DM aware. It seemed patients father has been focusing on this issue bowel evacuation and nutrition primary. Fleets enema was given per FMS tube and FMS was clamped fro about 2h to facilitate bowel evacuation- patient was not retaining enema without this action- No result so far. Patients father brought to the room an eclectic circular back/muscle massager and used this instrument on patients abdomen. The potential consequences of using this massaging implement such as causing additional discomfort to the patient by pressing on already distended and painful abdomen were explained to the family but patients father insisted on continuing this exercise. Patient responded by increased heart rate and respiratory rate with some head trashing- family did not use this implement again during my shift so far- was notified about this incident. Bronchoscope procedure with lavage this evening patient tolerated the procedure well. In addition to his sedation medications described above he required 2ml-=20mg X2 boluses of propofol IV for comfort/sedation. Respiratory rate 22-30 during procedure with heart rate 125-130. Oxygen saturation 96-97% on 100 FIO2 per ventilator for procedure purposes- please see RT documentation for ventilator changes.
--- NOTE | 2017-04-09 20:19 | PROG NOTE ---
[address] [address] PROGRESS NOTE PATIENT: DREA PELAYO : 1990 MR#: [id number] ADMIT: 04/03/2017 JOB ID: [id number] DATE: 04/09/2017 PROBLEM LIST: 1. Gastric adenocarcinoma with hepatic metastases. 2. Saddle pulmonary embolism with acute respiratory failure. 3. Left lower lobe pneumonia. 4. Mucus plugging. SUBJECTIVE: None. Patient sedated on ventilator. OBJECTIVE: Temperature 37.7 which is T-max. Pulse of 120-130, respiratory rate 24-28, blood pressure 111/63, O2 sat on FiO2 of 70%, PEEP of 10, is 93%-94%. I and O shows 2.4 L in, 1.5 L out. Eyes: Conjunctivae are pink. Pupils 3 mm in diameter and reactive. Nose and throat could not be examined. Chest: Good breath sounds on the right and left. Maybe somewhat diminished in the left lower lung field with a few ill-defined inspiratory and possibly expiratory pulmonary adventitial sounds. Heart: Regular rhythm. Rapid rate. Heart tones seem normal. Abdomen: A little bit distended. Quiet. Extremities: 2 to 3+ pretibial edema. Chest x-ray shows a retrocardiac airspace density unchanged from previous film. LABORATORY DATA: Shows a white count of 22,600 with 82 polymorphonuclears,9 bands, 3 lymphs, 6 monos. Hemoglobin 10. Platelet count 379,000 and rising. Sodium 140, potassium 4.7, chloride 103, CO2 is 20, BUN 18, creatinine 0.5, glucose 112, calcium is 8.2 with an albumin of 2.5, phosphorus is normal at 2.6, magnesium normal at 2.2, total bilirubin stable after an initial rise at 3.4, AST falling at 84, ALT falling at 46, alkaline phos rising at 430. A procalcitonin unchanging at 7.41. PTT 68.3 seconds on argatroban. Arterial blood gases on an FiO2 of 60%, PEEP of 10, shows pO2 75, pCO2 33, pH 7.44. Bronchoscopy performed. Mucous plugs removed from the basilar segments of the left lower lobe. Endotracheal tube identified 1 cm above the main alen and RT notified to pull the endotracheal tube back 1 to 2 cm. Current antibiotics changed to nafcillin because of an SSA identified in the lung. ASSESSMENT: 1. Left lower lobe pneumonia. Appears to be methicillin-sensitive Staphylococcus aureus. Switched to nafcillin. Oxygenation a bit variable. Suspect it is due to the mucous plugs. Bronchoscopy performed today was somewhat helpful though I do not think the defining intervention. 2. Pulmonary embolism. Argatroban seems to be effective with therapeutic PTT levels. 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 3. Hypoxemic respiratory failure. Some deterioration today. Hopefully, will improve after the bronchoscopy. Currently on pressure control ventilation. Acid base status is fine with mild ventilatory alkalosis. Still with a wide (A-a) DO2 gradient. Likely is multifactorial with the pneumonia, pulmonary embolism and mucous plugging. 4. Malnutrition. Patient is now day eight without nutrition. Discussed on rounds and it was decided that TPN might be warranted. The patient discussed with primary care team as well as Oncology. Views shared. Family conference attended earlier today lasting 1 hour. A number of issues broached with the family. Apparently, father has been feeling he is left out of the loop to some extent. Maybe not getting definitive communication from the daughter and mother (ex-) that the primary care team has been dealing with on a regular more than once a day basis. Subsequently, had a 2nd conversation with the patient's father. Aired some of his feelings about prognosis and wishing that we were not doing procedures just at their behest and explored somewhat when interventions might be felt futile. TIME: Time spent so far in critical care: 45 minutes with the patient, 20 minutes discussing with various physicians, 1 hour and a family conference and 30 additional minutes with the patient's father discussing some exploratory issues.
[2017-04-09] MEDS: Total Parenteral Nutrition 1 BAG IV SCH (20:58)
--- NOTE | 2017-04-09 22:17 | ENDO ---
[address] [address] ENDOSCOPY PROCEDURE PATIENT: DREA PELAYO : 1990 MR#: [id number] ADMIT: 04/03/2017 JOB ID: [id number] DATE OF PROCEDURE: 04/09/2017 PROCEDURE: Flexible fiberoptic bronchoscopy. SURGEON: Cornell Funk MD. PREOPERATIVE DIAGNOSIS: Mucous plugging left lower lobe bronchus. POSTOPERATIVE DIAGNOSIS: Mucous plugging left lower lobe bronchus. FINDINGS: 1. Mucous plugging of left lower lobe bronchus with lavage productive of small plugs. 2. Patches of mucoid material on anterior wall of the trachea. 3. Endotracheal tube tip about 1 cm from the main alen. 4. Note should be made of minimal erythema and edema of the lower lobe airways.. INDICATIONS FOR PROCEDURE: The patient is a 27-year-old male with left lower lobe pneumonia, pulmonary embolism, and gastric carcinoma with hepatic metastases, currently with hypoxic respiratory failure. Lung exam shows some decreased breath sounds and a few pulmonary adventitial sounds anterior aspect of the left lower chest. Chest x-ray shows retrocardiac density. Previous bronchoscopy has shown copious thick mucous plugs. Bronchoscopy was felt to be warranted due to his slight decrease in oxygen requiring FiO2 of 0.7 and 0.6, as well as a previous findings on bronchoscopy. PROCEDURE: After informed consent, the patient was given FiO2 of 1.0. Also received bolus of 20 mcg fentanyl IV. The Olympus bronchoscope was passed through the endotracheal tube. The tip of the endotracheal tube was identified about 1 cm above main alen. There was a patch of mucoid material adherent to the left anterior wall of the trachea. This was removed easily with underlying mucosa being minimally erythematous. Left mainstem bronchus had mild erythema. Left upper lobe is patent. Left lower lobe had mucous plugs. These were removed relatively easily, being somewhat whitish in color. Lavage of left lower lobe revealed mucous plugs further out in the bronchial tree. A total of 100 mL of saline were used and lavaged with about 60 mL returned. At the termination of lavage, lavage did not produce any further plugs and airways were patent. There was minimal to no edema with very mild erythema of the basilar segments. Right mainstem bronchus was patent, as was the right upper lobe, bronchus intermedius and right lower lobe. At the termination of procedure the tip of the endotracheal tube was identified 1 cm above the main alen. Respiratory therapy was aware and will pull out the tracheal tube back 1-2 cm. Throughout the bronchoscopy there was no evidence of arrhythmias or O2 desaturation. Hemodynamics remained stable throughout. SPECIMENS OBTAINED: Bronchial lavage was sent for Gram stain, C and S, fungal smear and culture, as well as viral respiratory panel. Family was present for the entire bronchoscopy and findings explained.
[2017-04-10] VITALS (11 sets, daily range): BP systolic 102–127; BP diastolic 58–83; PULSE 118–129; RESP 16–21; O2SAT 92–99
[2017-04-10] MEDS: fentaNYL 2,500 mCg/250 mL 2,500 MCG in IV Premix 1 EACH IV SCH ×2 (02:54→14:20)
[2017-04-10] MEDS: Propofol Inj 1,000,000 MCG in IV Premix 1 EACH IV PRN ×5 (02:56→21:18)
[2017-04-10 04:17] LABS: Mean Corpuscular Hemoglobin 22.9 pg (27.0-35.0); Platelet Count 397 bil/L (150-400)
[2017-04-10] MEDS: Chlorhexidine 0.12% 15 mL Oral Solution MT SCH ×6 (05:01→23:23)
[2017-04-10] MEDS: NAFCILLIN IV SCH ×6 (05:01→12:32)
[2017-04-10 05:04] LABS: Magnesium 2.4 mg/dL (1.6-2.6)
[2017-04-10 05:12] LABS: BASOPHILS % (AUTO) 2 % (0-3); EOSINOPHILS % (AUTO) 0 % (0-5); MONOCYTES % (AUTO) 6 % (4-12); NEUTROPHILS % (AUTO) 84 % (40-74)
--- NOTE | 2017-04-10 05:17 | ABG ---
DateTimeAnalyzed 05:07:00 -_ pH ____7.372 - 7.350 7.450 pCO2 ___39.4__ -mmHg 35.0 45.0 pO2 ___95.1__ -mmHg 69.0 116 HCO3- ___22.3__ -mmol/L 22.0 26.0 ABE ___-2.1__ -mmol/L -2.0 2.0 tHb ___10.1__ -g/dL 12.0 18.0 O2Hb ___95.5__ -% COHb ____0.9__ -% 0.0 1.5 MetHb ____1.1__ -% 0.4 1.5 sO2 ___97.4__ -% 25.0 FIO2 ___70.0__ -% PEEP ___10.0__ -cmH2O Set_RR ___12.0__ -b/min Vt __810.0__ -L Drawn By LT - Oxygen Device 2 PRESSURE CONTROL -____ Date/Time Notified____ 05:17:00 -_ Spontaneous_RR ___20.0__ -b/min Notified By LT - Notified Whom BARBRA SWAN, RN - B 757 -mmHg tO2 ___13.7__ -Vol% OrderingPhysicianInitials bak - Yaakov test N/A -
--- NOTE | 2017-04-10 06:20 | NUR ---
Resp /temp Patient tolerating vent settings, AM ABGs drawn and FiO2 now down to 60%. Minimal secretions overnight. Patient currently tolerating CLRT. Per MD and RT, Pt is no longer on Chest physiotherapy. Tmax 38.2 over night. Tylenol given. Temp normothermic again.
[2017-04-10] MEDS: Pantoprazole 4 mg/mL 10 mL Inj IVPUSH SCH ×2 (08:13→16:46)
[2017-04-10] MEDS: [UNRECOGNIZED DRUG - REMARK] XX SCH (08:30)
[2017-04-10] MEDS: Polyethylene Glycol (PEG) 17 Gm Powder PO SCH ×2 (08:30→19:22)
[2017-04-10] MEDS ORDERED: Glucose 40% Oral Gel 15 Gm Tube PO PRN (10:00)
--- NOTE | 2017-04-10 10:36 | NUR ---
NUTRITION FOLLOW-UP: ASSESS: 27 YO male with a recent diagnosis of metastatic gastric cancer with family history of Peutz-Jeghers syndrome admitted to CCU for bilateral DVTs and sudden onset shortness of breath. Pt remains intubated. He has become septic due to pneumonia. TF off due to high residuals and lack of bowel movement. TPN started 04/09. PMHx: Metastatic gastric cancer, upper GI bleed, liver biopsy, Peutz-Jeghers syndrome, LE DVTs. DIET: NPO. ENTERAL FEEDING: OFF LABS: Reviewed. Bun 31, cook room supervisor .71, Glu 158, Ca 8.3, T.bili 5.2, AST 75, ALT 38, Alk phos 485, Alb 2.3 MEDICATIONS: Reviewed. Fentanyl, reglan, Dulcolax, miralax, senna. Propofol rate currently 21.9ml/hr 578kcal/day GI: No stool reported, with recent hx of constipation related to pain medication regimen. SKIN: No issues reported. ANTHROPOMETRICS: Current Wt: 80.8 kg, BMI 20.1 kg/m2. Admit weight: 81.0, IBW: 100 kg (81% IBW) ESTIMATED NEEDS (CANCER/VENT ): Calories: 1780-2425kcal/day (22-30kcal/kg BW) Protein: 120-145 g/day (1.5-1.8 g/kg BW) Fluid: Approx. 2425mL (30mL/kg BW) NUTRITION DIAGNOSIS: 1) Inadequate oral intake related to altered GI function, as evidenced by NPO/vent status, enteral feeding on hold - PERSISTS. 2) Increased nutrient needs related to cancer and underweight status, as evidenced by 81% IBW - PERSISTS. INTERVENTION: 1) Recommend continue TPN at current macronutrients of Dex 200 g, AA 85 g, lipids 30 g to provide 1150 kcal (1728kcal TPN+Propofol), 85 g protein. 95% kcal and 70% protein needs. Recommendations given to Pharmacy. 2) Once TPN tolerance established, advance to eventual goal TPN of Dex 300 g, AA 120 g, Lipids 30g to provide 1800 kcal, 120g protein; meeting 100% of calorie/protein needs. ( 2378kcal TPN+Propofol). Adjust goal rate based on Propofol rate. If pt's Alk phos continues to be high, recommend consider cycling lipids. 3) If able restart TF of Vital 1.5 at 10 ml/hr, once tolerance established, will advance 5 ml every 4 hr. to goal rate 55 mL/hr, providing 1815 kcal (2393 kcal with Propofol), 73 g protein meeting approx. 100% kcal and 62% pro needs. MONITOR/EVALUATE: NPO/vent status, TPN kev, labs, weight, POC, GI/nutrition status. Follow per high nutrition risk guidelines.
--- NOTE | 2017-04-10 10:56 | DRSVH ---
PROCEDURE: X-RAY CHEST ONE VIEW, PORTABLE ([id number]) INDICATIONS: fu intubated pneumonia TECHNIQUE: One view of the chest was acquired. COMPARISON: [facility], CR, XR CHEST 1VW (PORTABLE), 04/08/2017, 5:49. [facility], CR, XR CHEST 1VW (PORTABLE), 04/08/2017, 4:44. [facility], CR, XR CHEST 1VW (DUC BLE), 04/07/2017, 7:51. [facility], CR, XR CHEST 1VW (PORTABLE), 04/07/2017, 5:02. [facility], CR, XR CHEST 1VW (PORTABLE), 04/06/2017, 5:04. [facility], CT, CT ANGIO CHEST PE, 04/05/2017, 17:44. [facility], CR, XR CHEST 1VW (PORTABLE), 04/09/2017, 3:58. FINDINGS: Surgical changes and devices: No change in position of ETT, nasogastric tube and left PICC. Lungs and pleura: No pleural effusions or pneumothorax. Persistent retrocardiac airspace opacity pr esent with air bronchograms. Right lung is clear. Mediastinum: Mediastinal contours appear normal. Heart size is normal. Bones and chest wall: No suspicious bony lesions. Overlying soft tissues appear unremarkable. IMPRESSION: 1. Stable support lines and tubes. 2. Persistent retrocardiac air space opacity with air bronchogram indicating consolidation rather yue n atelectasis, not significantly changed. Dictated by: Jak Ortiz A Interpreted: Kenyon Spear MD on 04/10/2017 at 9:39 Approved by: Kenyon Spear M.D. on 04/10/2017 at 10:54
--- NOTE | 2017-04-10 11:11 | DRSVH ---
PROCEDURE: US ABDOMEN ([id number]) INDICATIONS: Intra ABD Pressure 22, unable to tolerate CT TECHNIQUE: Real-time scanning was performed of the abdominal and retroperitoneal organs, with image documentatio n. COMPARISON: [facility], US, US ABDOMEN, 03/07/2017, 9:38. FINDINGS: Liver: Liver is enlarged in size and heterogeneous in echotexture with multiple hepatic mass lesions previously identified again seen, having enlarged in size from the comparison ultrasound 03/07/17 and the largest measures up to 5.5 x 5.0 x 4.3 cm. Gallbladder: The gallbladder watts just above the upper limits of normal at 3.1 mm, and appears to co ntain sludge. A small amount of adjacent free fluid can be seen. Biliary ducts: Intrahepatic bile ducts are non-dilated. Extrahepatic bile duct caliber measures 3.5 mm. Normal is 6-7 mm or less in diameter, or 10 mm or less post-cholecystectomy. Pancreas: Visualized portions of the pancreas are sonographically normal. Spleen: Spleen is normal in size and homogeneous in echotexture. Kidneys: The right kidney is normal in size and echotexture. Right kidney measures 16.3 cm long; lef t kidney could not be seen. No solid masses. Aorta: Visualized aorta is normal in caliber at less than 3 cm. Iliacs: Proximal common iliac arteries are normal in caliber at less than 2.5 cm. IVC: Intrahepatic inferior vena cava is patent. Miscellaneous: There is mild for quadrant abdominal free fluid. IMPRESSION: 4 quadrant mild ascites noted, growing mass lesions throughout the liver parenchyma. Nonvisualization of the left kidney due to overlying bowel gas and inability of the patient to fully cooperate with positioning and breath holding. Dictated by: Donnie Harrington M.D. on 04/10/2017 at 11:07 Approved by: Donnie Harrington M.D. on 04/10/2017 at 11:10
[2017-04-10] MEDS: Insulin LISPRO 300 Unit/3 mL Inj SUBQ SCH ×3 (12:00→21:03)
--- NOTE | 2017-04-10 12:03 | PCM.PHAPRO ---
Progress TPN TPN#2 I. Fluid state Ascites, anasarca, albumin 2.3, with flat weight trend. Likely intravascularly dry. p/ Consider concentrating TPN II. Chem Lytes WNL, without concerning trends BUN/Scr ratio noted III. Glucose Remains <150 w/o exogenous insulin IV. Macronutrients Continue at ~2/3 estimated needs per radioactivity technician recs P/ Discuss concentrating TPN to allow for finer fluid support. PARENTERAL NUTRITION ORDERS 2 - Standard Hang Time: 2100 Substrates Total kcal: 1320 AMINO ACIDS 85 g DEXTROSE 200 g Total Volume (mL): 2400 LIPIDS 30 g Sterile Water for Injection mL To Infuse Over (hrs): 24 Total Volume 2400 mL At at a rate of (mL/hr): 100 Additives Sodium Chloride 80 mEq "typical" daily requirements Sodium Acetate 40 mEq Sodium 50-120mEq Potassium Chloride 50 mEq Potassium 60-120mEq Potassium Phosphate 40 mEq Phosphate 20-40mEq Calcium Gluconate 9.3 mEq Magnesium 8-32mEq Magnesium Sulfate 12 mEq Calcium 9-22mEq Acetate* 80-120mEq Chloride* 80-120mEq Regular Insulin units *Depending on acid-base status Famotidine mg Multivitamins 1 std dose Insulin Regimen Trace Elements 1 std dose none Thiamine mg Regular Low Intensity Subcut Folic Acid mg Regular Medium Intensity Subcut Ascorbic Acid mg Regular High Intensity Subcut Regular Insulin Infusion Other: Joshua Floyd S Pharm D Apr 10, 2017 12:03
[2017-04-10] MEDS: ARGATROBAN IV SCH ×4 (12:50→21:03)
[2017-04-10] MEDS: SODIUM CHLORIDE IV SCH ×4 (12:50→21:03)
--- NOTE | 2017-04-10 13:03 | PCM.PNMED ---
Subjective Date of Service Apr 10, 2017 Subjective Curtis Malloy is a 27 yo man with recent diagnosis of gastric adenocarcinoma with hepatic metastases who presented to the hospital with saddle pulmonary embolism and acute respiratory failure. He was treated with EKOS catheter directed thrombolytic therapy x 3 with no change in massive clot burden on repeat CT. Heparin gtt was ineffective and was switched to Argatroban ggt. He also got bronchoscopy twice to remove the mucus plugs, which seems to help his respiratory status. Overnight, patient tolerating vent settings, FiO2 now down to 60% and 10cm of PEEP. Tmax 38.2 over night, resolved with Tylenol. Otherwise, he has been hemodynamically stable without any episodes of hypotension. He has been tolerated the Argatroban infusion well and has been therapeutic on his PTT. Patient is on Fentanyl 200mcg and Propofol 45mg. He is not requiring vasopressor. TPN initiated last night. Today, his family reports that he has been more responsive and is happy with his slight progress. His intra-abdominal pressure trends up to 22 from 15 and his abdomen becomes increasingly rigid to palpation. Patient still has not had a BM in spite of multiple medications to facilitate a bowel movement, including Fleets enema per FMS tube. Exam Vital Signs Vital Sign - Last Date Time Temp Pulse Resp B/P Pulse Ox O2 Delivery O2 Flow Rate FiO2 04/10/17 07:35 128 119/74 92 60 04/10/17 04:00 Ventilator 04/10/17 03:01 36.9 16 04/04/17 04:23 4.00 Intake and Output 04/09/17 04/09/17 04/10/17 Cumulative From/Thru 15:00 23:00 07:00 04/03/17 07:34 - 04/10/17 05:04 Intake Total 1146 ml 20513 ml Output Total 725 ml 8700 ml Balance 421 ml 54955 ml Intake Oral 0 ml IV Total 1086 ml 41586 ml Tube Feeding 1407 ml Packed Cells 351 ml Tube Irrigant 60 ml 480 ml Output Urine Total 700 ml 7975 ml Gastric Drainage Total 25 ml 725 ml # Bowel Movements 0 Exam Gen: Intubated and sedated young man, pale, cachetic, minimally responsive to external stimuli, not following commands for me. HEENT: ET tube in place and appears patent, scleral icterus noted bilaterally, mucous membranes moist. Cardio: Regular rhythm, tachycardia with no murmurs rubs or gallops Resp: relatively clear to auscultation bilaterally and somewhat diminished in the left lower lung field with a few crackles. Abdomen: distended and rigid to palpation, abdominal wall somewhat edematous, fluid wave noted, hypoactive bowel sound, appears nontender to palpation. Extremities: Warm to the touch, moderate pitting edema in the bilateral lower extremities up to mid tibia. Skin: pale, slight jaundice, dry and intact. Neuro: CN difficult to assess in this intubated and sedated patient, no focal neurologic deficit IVs and Medications IV Fluids TPN Medications Reviewed: Medications were reviewed in detail Medications High risk meds include IV Fentanyl and Propofol. Lab and Diagnostics Result Diagram: 04/10/1740404/10/17 040 X-Rays, CTs and MRIs Chest XR: 1. Stable support lines and tubes. 2. Persistent retrocardiac air space opacity with air bronchogram indicating consolidation rather than atelectasis, not significantly changed. Dictated by: Jak Ortiz RRA Interpreted: Kenyon Spear MD on 04/10/2017 at 9:39 Chest x-ray Stable pulmonary venous engorgement and support devices. Dictated by: New Powers M.D. on 04/03/2017 at 11:01 CT angiogram 1. Multiple, bilateral large pulmonary emboli. 2. Flattening of the cardiac interventricular septum suggesting right heart strain. 3. Hepatic metastatic disease. 4. Findings telephoned to Dr. Nathan Paz on 04/03/17 at 0817 hrs. Dictated by: Louisa Jones MD, PhD on 04/03/2017 at 8:13 Chest x-ray 1. Endotracheal tube and nasogastric tube positioned as described. 2. Mild cardiomegaly and moderate vascular congestion. Dictated by: Tristin Mckenzie M.D. on 04/03/2017 at 9:55 Chest x-ray 1. Endotracheal tube is positioned at the thoracic inlet. 2. Mild cardiomegaly and vascular congestion is similar to the prior study. Dictated by: Tristin Mckenzie M.D. on 04/03/2017 at 10:03 Additional Diagnostics PROCEDURE: US ABDOMEN FINDINGS: Liver: Liver is enlarged in size and heterogeneous in echotexture with multiple hepatic mass lesions previously identified again seen, having enlarged in size from the comparison ultrasound 03/07/17 and the largest measures up to 5.5 x 5.0 x 4.3 cm. Gallbladder: The gallbladder watts just above the upper limits of normal at 3.1 mm, and appears to contain sludge. A small amount of adjacent free fluid can be seen. Biliary ducts: Intrahepatic bile ducts are non-dilated. Extrahepatic bile duct caliber measures 3.5 mm. Normal is 6-7 mm or less in diameter, or 10 mm or less post-cholecystectomy. Pancreas: Visualized portions of the pancreas are sonographically normal. Spleen: Spleen is normal in size and homogeneous in echotexture. Kidneys: The right kidney is normal in size and echotexture. Right kidney measures 16.3 cm long; left kidney could not be seen. No solid masses. Aorta: Visualized aorta is normal in caliber at less than 3 cm. Iliacs: Proximal common iliac arteries are normal in caliber at less than 2.5 cm. IVC: Intrahepatic inferior vena cava is patent. Miscellaneous: There is mild for quadrant abdominal free fluid. IMPRESSION: 4 quadrant mild ascites noted, growing mass lesions throughout the liver parenchyma. Nonvisualization of the left kidney due to overlying bowel gas and inability of the patient to fully cooperate with positioning and breath holding. Dictated by: Donnie Harrington M.D. 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 #. Sepsis due to left lower lobe MSSA pneumonia, new and active. - Appears to be methicillin-sensitive Staphylococcus aureus, confirmed by bronchoscopy and lavage. - Recent bronchial washing on 04/09/17 was negative for viral PCR. - Unclear if this was community or healthcare acquired. - He received 5 days of Zosyn, which was switched to nafcillin yesterday . - WBC and procalcitonin trend up today with bandemia of 14. - Will consult Dr. Goldberg of infectious disease for further antibiotic guidance. Will need to look for other source of infection, including urine and peritoneal fluid. - Oxygenation a bit variable. Patient had left lower lobe mucus plugs which causes significant decline in oxygenation and improved after bronchoscopy. #. Acute submassive pulmonary embolism with obstructive shock, POA, active. - s/p EKOS therapy x 3 with tPA infusion. - Repeat CT showed no change in massive clot burden on 04/05/17. - Will repeat CT chest angiogram tomorrow morning. - Argatroban seems to be effective with therapeutic PTT levels. 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 - Continue with Argatroban drip. PTT is currently therapeutic (70.2). #. Abdominal ascites, new and active. - Intra-abdominal pressure increases to 22 today with worsening abdominal rigidity and distention. Fluid wave noted on exam. - Abdominal U/S showed 4 quadrant mild ascites noted and growing mass lesions throughout the liver parenchyma. Gallbladder watts is just above the upper limits of normal at 3.1 mm, and appears to contain sludge. - U/S- guided diagnostic and therapeutic paracentesis performed today and removed 1600ml of clear amniotic fluid, which was sent for cytology and gram stain/culture. Results pending. #. Acute Hypoxemic respiratory failure, on mechanical ventilation since April 03, active. - Likely is multifactorial with the pneumonia, pulmonary embolism, and mucous plugging. S/p bronchoscopy x2. - Slight improved respiratory status after the bronchoscopy yesterday. Repeat CXR today shows persistent retrocardiac air space opacity with air bronchogram indicating consolidation rather than atelectasis, not significantly changed. - Currently on pressure control ventilation. Unable to successfully decreased FiO2 for prolonged periods, which may be due to evolving V/Q mismatch with lysis of the pulmonary emboli and movement of clot into smaller vessels. Will continue weaning down as tolerated for sats above 92% and also try to bring the PEEP down to 5cm. - If his FiO2 requirement is 40% or less, we will try a spontaneous breathing trial/pressure support trial. - Chest physiology did not seem to help much so this was discontinued yesterday. #. Hyperbilirubinemia, new and active. - Bilirubin and Alkaline phos trending up; scleral icterus on exam; likely secondary to hepatic metastases. - Abdominal U/S today showed growing mass lesions throughout the liver parenchyma. - Will check abdominal and pelvis CT in the morning to rule out pancreatobiliary carcinoma and check the progression of his cancer. Other medical issues will be managed by the primary care team: #. Constipation. #. Malnutrition. #. Gastric adenocarcinoma with liver metastases status post liver biopsies on March 23. #. Anasarca, new and active. #. Acute iron deficiency anemia. #. Bilateral popliteal DVT, POA and active. #. Metastatic liver cancer due to poorly differentiated adenocarcinoma. Patient is on PPO BID for GI prophylaxis. He is on Argatroban ggt for PE, which is therapeutic. Pain Evaluation: Adequate Pain Control GI Prophylaxis: Proton Pump Inhibitor Resuscitation Status: CPR: Attempt Resuscitation Mary Bourgeois DO Apr 10, 2017 08:35 - Diagnosed 6 weeks ago. Biopsy of liver mets revealed poorly differentiated adenocarcinoma. Likely secondary to gastric carcinoma vs pancreatobiliary carcinoma. Possibly related to family history of Peutz-Jeghers syndrome, although less likely given pathology, per Dr. Suazo. - Dr. Suazo of Oncology is following. We appreciate his input. Pain Evaluation: Adequate Pain Control GI Prophylaxis: Proton Pump Inhibitor Resuscitation Status: CPR: Attempt Resuscitation Mary Bourgeois DO Apr 10, 2017 08:35 GI Prophylaxis: Proton Pump Inhibitor Resuscitation Status: CPR: Attempt Resuscitation Mary Bourgeois DO Apr 10, 2017 08:35
[2017-04-10 13:39] LABS: BFWBC 343 /mm3
[2017-04-10 13:40] LABS: MONOCYTES,BODY FLUID 13 %; OTHER CELLS,BODY FLUID 0
--- NOTE | 2017-04-10 14:20 | CONS ---
[address] [address] CONSULTATION REPORT PATIENT: DREA PELAYO : 1990 MR#: [id number] ADMIT: 04/03/2017 JOB ID: [id number] DATE OF SERVICE: 04/10/[address] Vega for this timely consult. REASON FOR CONSULTATION: Respiratory failure and possible nosocomial pneumonia in an unfortunate 27-year-old gentleman with metastatic gastric adenocarcinoma. HISTORY OF PRESENT ILLNESS: The patient is a 27-year-old gentleman who was experiencing some GI bleeding and abdominal issues back in February. Endoscopy at that time showed polyps. Biopsies were negative for malignancy. It was subsequently discovered that he had what appeared to be liver mets, and on March 23, he underwent a needle biopsy which proved that he had gastric adenocarcinoma with extensive liver metastases. The presumptive diagnosis of Peutz-Jeghers syndrome with secondary gastric malignancy was made at that time. The patient was being evaluated as an outpatient and there were plans to get a PET scan and get him started on FOLFOX chemotherapy as soon as possible, but unfortunately, he developed progressive shortness of breath with air hunger and was admitted to this facility on April 03. Shortly after admission, the patient was intubated and has remained on the ventilator now for basically one week secondary to extensive bilateral pulmonary emboli on the basis of bilateral lower extremity DVTs. All of this hypercoagulability is undoubtedly secondary to his metastatic adenocarcinoma. When first admitted, the patient had leukocytosis with some left shift, but he had no fever. Approximately three days ago, on or about April 05 or , he started to develop low-grade fevers, and there was increased concern about increased respiratory secretions. At that time, appropriate samples were done including bronchoscopic samples. These yielded MSSA. The patient was started on Zosyn empirically and continued on that from April 06 to , and was subsequently switched yesterday to nafcillin as the sputum from the sputum samples and bronch wash had yielded MSSA. A repeat bronch wash was done yesterday, April 09, and that is also starting to grow what appears to be Staph aureus, raising the possibility that he has a Staph aureus pneumonia for which, as I mentioned, he has already been switched from Zosyn to nafcillin. The patient is currently intubated and sedated as he really has been throughout his hospital stay and so there is no additional history from him. We did discuss his situation with his mother. He has not had any personal history of Peutz-Jeghers syndrome though the mother herself was apparently diagnosed previously as have been other members of her family. This case was discussed extensively during ICU rounds and at the bedside with the ICU attending as well as the nurse. PAST MEDICAL HISTORY: 1. 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 2. Gastric adenocarcinoma with extensive liver mets, as well as ascites and peripheral edema. 3. Bilateral pulmonary DVT with bilateral lower extremity DVT and respiratory failure. SOCIAL HISTORY: The patient is a nonsmoker of cigarettes, though he occasionally smokes marijuana. He is a nondrinker. FAMILY HISTORY: Includes his mother and uncle and perhaps other family members with Peutz-Jeghers syndrome. REVIEW OF SYSTEMS: Not possible in this intubated, sedated young man. PHYSICAL EXAMINATION: Reveals a gentleman who is currently afebrile. Temp 37.5, pulse 128, and that is a sinus tach. Respiratory rate 18, blood pressure 117/61. He is saturating reasonably well on 60% FiO2 and 10 of PEEP. Note that he was afebrile his first two days in the hospital. Then, about noon on the April 05, started to have low-grade fevers. By April 07, he was having temperatures to 38.4, and these relatively low-grade fevers have persisted through yesterday evening. Examination the patient's head reveals no trauma. There are no apparent abnormalities of the eye. No scleral icterus or conjunctivitis. Nose appears normal. He does not have an NG tube. Oral gastric tube, oral endotracheal tube in good position. He does not have any classic mucocutaneous lesions of Peutz-Jeghers syndrome around his mouth, and his mother tells us that he never has. His neck is without notable adenopathy or JVD. His lungs are notable for a few crackles at the left base but relatively good air flow bilaterally. As noted, there is no wheezing and no rub. Cardiac tones are tachycardic and regular. One cannot discern a murmur at this rate or at least I cannot. The abdomen is grossly distended and note that this is after a couple hours after the patient had a 1.5 L paracentesis because of increasingly tense ascites. It is difficult to palpate within the abdomen, but there is certainly a hint of hepatomegaly. I do not appreciate any splenomegaly. He still has some residual ascites undoubtedly. He does not have edema of the scrotum. His scrotum and penis appear normal. There is a Lowery catheter present. There is no inguinal adenopathy. His extremities below the knee have 3+ pitting edema. There is no evidence of hypoperfusion. He has good peripheral pulses. No evidence of cellulitis. Neurologic exam cannot be done in this intubated, sedated gentleman. LABORATORIES: Include white count 21,000 when he came in, now 24,000, so really has not changed. His neutrophil percentage 85% basically throughout his hospital stay; that has never changed. Platelets are currently reasonable at 397,000. He has 14% band forms at this time. Urinalysis: No white cells. Peritoneal fluid was just obtained and we actually do have back the result which shows peritoneal fluid LDH 938, peritoneal fluid glucose 115. We are waiting on albumin as well as other studies on the cell counts and cultures on the peritoneal fluid. Blood cultures on the when he was admitted were negative as was a nasal PCR. Bronch wash fluid from the grew Staph aureus and moderate growth. This is resistant to erythromycin, sensitive to clindamycin and all other standard MSSA agents. A repeat bronch wash was done yesterday. PCR studies on that were negative, but the bronch wash fluid is already growing Staph aureus. Again, we wait for those susceptibilities. As mentioned, ascitic fluid was obtained on the and we are waiting for those studies. IMAGING: On admission included a CT angio of the chest, which showed multiple large pulmonary emboli, right heart strain, and extensive mets throughout the liver. On the he underwent another CT scan which showed unchanged large pulmonary emboli and extensive liver mets as before. Yesterday, a chest x-ray showed possible retrocardiac consolidation consistent with atelectasis or aspiration. I compared that on the computer screen to today's. If anything, today's might be slightly better but really little change in the subtle left lower lobe infiltrate and small effusion. An abdominal ultrasound was also done just today which shows ascites. IMPRESSION: This is an extraordinarily unfortunate 27-year-old gentleman with underlying Peutz-Jeghers syndrome, who over the past few weeks, has been worked up and evaluated for gastrointestinal symptoms and has been found to have gastric malignancy with extensive liver metastases. He was admitted for respiratory failure which is clearly on the basis of massive bilateral pulmonary emboli. He is currently still ventilator dependent on the basis of these pulmonary emboli. Whether or not he has any infection is extremely unclear to me. The patient has had a persistent leukocytosis at about 20,000 since admission and every differential has about 85% bands. His procalcitonin is consistently elevated but liver metastases, in and of themselves, can produce elevated procalcitonin, so I am not sure what to make with that piece of data. His cultures have been negative except for the bronch wash on Sunday, which yielded the methicillin-sensitive Staphylococcus aureus , which was treated with three days of Zosyn. Zosyn was subsequently switched by the team to nafcillin yesterday because of the discovery of methicillin-sensitive Staphylococcus aureus, but I am not certain whether or not the patient actually has methicillin-sensitive Staphylococcus aureus pneumonia, which I tend to doubt, or whether he is colonized with methicillin-sensitive Staphylococcus aureus in the setting of his dramatic bilateral pulmonary emboli syndrome and some left lower lobe atelectasis. Because of the critical nature of the patient's illness, I think we are obliged to treat him for what could be possible infection even as I think it is more likely that this is actually noninfectious at this point. RECOMMENDATIONS: 1. I would discontinue the nafcillin because if he does have an infiltrate it is likely there is some anaerobic type of aspiration or hospital-acquired microbiologic component to this and I would prefer broader coverage. 2. Will substitute ertapenem 1 g once a day which is excellent for MSSA and will provide broad gram-negative as well as anaerobic coverage. 3. Will continue to closely follow this patient with you. This case discussed at the bedside with the ICU team as well as the nurse and the patient's mother.
--- NOTE | 2017-04-10 14:47 | PCM.PNMED ---
Subjective Date of Service Apr 10, 2017 Subjective Last night patient received bronchoscopy with removal of approximately 60 mL of mucous secretions. Patient tolerated vent settings throughout the night was able to decrease FiO2 to 60%, minimal mucousy secretions after bronchoscopy. Enema with FMS was unsuccessful yesterday. This a.m. found intra-abdominal pressure B 22, subglottic suction reportedly was undone and a good amount of purulent secretions were recorded. Abdominal ultrasound showed a good amount of abdominal fluid, approximately 1.5 L later drained. her calcitonin elevated to 14 today white count continues to trend upwards. Exam Vital Signs Vital Sign - Last Date Time Temp Pulse Resp B/P Pulse Ox O2 Delivery O2 Flow Rate FiO2 04/10/17 07:35 128 119/74 92 60 04/10/17 04:00 Ventilator 04/10/17 03:01 36.9 16 04/04/17 04:23 4.00 Intake and Output 04/09/17 04/09/17 04/10/17 Cumulative From/Thru 15:00 23:00 07:00 04/03/17 07:34 - 04/10/17 05:04 Intake Total 1146 ml 62554 ml Output Total 725 ml 8700 ml Balance 421 ml 46606 ml Intake Oral 0 ml IV Total 1086 ml 29735 ml Tube Feeding 1407 ml Packed Cells 351 ml Tube Irrigant 60 ml 480 ml Output Urine Total 700 ml 7975 ml Gastric Drainage Total 25 ml 725 ml # Bowel Movements 0 Exam General: Intubated and sedated. Frequent spontaneous movement of his head, responsive to painful stimuli. HEENT: Normocephalic, atraumatic. Scleral icterus Cardiovascular: Regular rate and rhythm with no murmurs, rubs, or gallops appreciated Pulmonary: Clear to auscultation bilaterally with no crackles, wheezes, or rhonchi. Abdomen: Still distended and tense to palpation though markedly decreased after paracentesis Extremities: Lower extremity pitting edema to mid tibia. Bilateral upper extremity hand edema Skin: Warm to palpation, normal turgor Neurological: Intubated and sedated IVs and Medications Medications Reviewed: Medications were reviewed in detail Lab and Diagnostics Result Diagram: 04/10/1740404/10/17404 X-Rays, CTs and MRIs Chest x-ray Stable pulmonary venous engorgement and support devices. Dictated by: New Powers M.D. on 04/03/2017 at 11:01 CT angiogram 1. Multiple, bilateral large pulmonary emboli. 2. Flattening of the cardiac interventricular septum suggesting right heart strain. 3. Hepatic metastatic disease. 4. Findings telephoned to Dr. Nathan Paz on 04/03/17 at 0817 hrs. Dictated by: Louisa Jones MD, PhD on 04/03/2017 at 8:13 Chest x-ray 1. Endotracheal tube and nasogastric tube positioned as described. 2. Mild cardiomegaly and moderate vascular congestion. Dictated by: Tristin Mckenzie M.D. on 04/03/2017 at 9:55 Chest x-ray 1. Endotracheal tube is positioned at the thoracic inlet. 2. Mild cardiomegaly and vascular congestion is similar to the prior study. Dictated by: Tristin Mckenzie M.D. on 04/03/2017 at 10:03 US ABDOMEN IMPRESSION: 4 quadrant mild ascites noted, growing mass lesions throughout the liver parenchyma. Nonvisualization of the left kidney due to overlying bowel gas and inability of the patient to fully cooperate with positioning and breath holding. Dictated by: Donnie Harrington M.D. on 04/10/2017 Assessment & Plan Pt is a 27 year old male with a hx of metastatic gastric cancer with family history of Peutz-Jeghers syndrome, and adenocarcinoma of the stomach, bilateral DVTs and GI bleed 1 month ago. Admitted for bilateral massive PE and acute hypoxic respiratory failure #. Massive bilateral pulmonary emboli with obstructive shock, acute. Slowly improving. -Confirmed home dose of Lovenox 80 mg daily, most likely missing intermittent dosing prior to admission -Repeat CT shows unchanged clot burden despite treatment with tPA and EKOS 3. -Continue with Argatroban drip. -Continue to attempt to wean FiO2 -Additional CT imaging scheduled for today or tomorrow #. Acute hypoxic respiratory failure, POA ongoing. - Secondary to PE and collapsed lung. Minimal success with decreasing FiO2 for prolonged periods, possibly due to VQ mismatch from lysis of the pulmonary emboli resulting in subsequent showering. Also history of collapsed left lower lobe which seems to be improved, and mucous plug removed 04/09/2017 - Additional bronchoscopy 04/09/2017 removed approximately 60 mL of dense mucous - Continue mechanical ventilation. - Continue chest physiotherapy when necessary -We will attempt to wean off propofol and begin Precedex tomorrow 04/11/2017 #. Pneumonia, new and active. The patient appears to have developed a pneumonia over the last several days. Bronchial washing showed staph aureus, resistant to erythromycin. The patient also has had evidence of left lower lobe collapse likely from secretions. -Discontinued Zosyn, switched to nafcillin - also discontinued -Pro calcitonin and WBC trending up -ID following, recommendations appreciated -Ertapenem started 04/10/2017 -Bronchoscopy as above -Continue to monitor #. Sepsis secondary to HCAP. Acute and improving. -CT angio showed bilateral pleural effusions, worsening bibasilar pneumonia pattern, greater on the left than the right. Worsening leukocytosis, procalcitonin, intermittent fevers. -Infectious disease following -Antibiotics as above -Monitor procalcitonin, CBC. -No vasopressor requirements #. Anasarca, new and active. The patient has significant volume overload from resuscitation. We will continue to monitor and diuresis as able. -1.5 L peritoneal fluid taken off today -Urinary output remains adequate -Continue to monitor #. Acute iron deficiency anemia. Stable. - Secondary to hemodilution from aggressive fluid resuscitation. Possibly secondary to GI bleed from malignant gastric ulcers, but no sign of acute bleed at this time. Hb has been stable, so will switch from PPI drip to BID. - PRBCs on hold. Transfuse for HB <8. - Check H&H daily - Protonix 40 mg IV BID - Monitor for signs of acute bleeding #. Bilateral popliteal DVT, POA and active. - Pt diagnosed with bilateral large DVTs 3 weeks ago, placed on Lovenox at home with possible missed doses - Currently therapeutic on Argatroban #. Metastatic liver cancer due to poorly differentiated adenocarcinoma. - Diagnosed 6 weeks ago. Biopsy of liver mets revealed poorly differentiated adenocarcinoma. Likely secondary to gastric carcinoma vs pancreatobiliary carcinoma. Possibly related to family history of Peutz-Jeghers syndrome, although less likely given pathology, per Dr. Suazo. - Dr. Suazo of Oncology is following. We appreciate his input. Dangerous meds include fentanyl drip and propofol. Disposition: Patient remains intubated and sedated in ICU status. GI Prophylaxis: Proton Pump Inhibitor Resuscitation Status: CPR: Attempt Resuscitation Attending Statement The patient was seen and examined together with Dr. Huizar on April 10 and I agree with the history, exam findings, and plan as outlined in the note above. I did participate in all aspects of the services provided today, including documentation and the plan of care. Continue antibiotics for pneumonia, will consult with infectious disease when available. The patient continues to require mechanical ventilator and slowly weaning down his FiO2. BRICE HUIZAR DO Apr 10, 2017 07:41 Yaakov Fabian MD Apr 19, 2017 15:44
[2017-04-10] MEDS: Ertapenem Inj 1,000 MG in 0.9% Sodium Chloride 50 ML IV SCH (14:57)
--- NOTE | 2017-04-10 14:57 | PCM.PNMED ---
Subjective Date of Service Apr 10, 2017 Subjective 27 yo man with recent diagnosis of gastric adeno CA admitted with massive PE and respiratory failure. Has had trial of EKOS but repeat CTPA showed no resolution of his bilat PE's. Overnight, his FiO2 has weaned to 0.6 following a bronchoscopy yesterday by Dr. Funk. Family at bedside. Slightly more responsive compared to yesterday. Exam Vital Signs Vital Sign - Last Date Time Temp Pulse Resp B/P Pulse Ox O2 Delivery O2 Flow Rate FiO2 04/10/17 12:13 128 117/61 96 60 04/10/17 12:00 37.5 18 Mechanical Ventilator 04/04/17 04:23 4.00 Intake and Output 04/09/17 04/09/17 04/10/17 Cumulative From/Thru 15:00 23:00 07:00 04/03/17 07:34 - 04/10/17 05:04 Intake Total 1146 ml 89963 ml Output Total 725 ml 8700 ml Balance 421 ml 41953 ml Intake Oral 0 ml IV Total 1086 ml 37690 ml Tube Feeding 1407 ml Packed Cells 351 ml Tube Irrigant 60 ml 480 ml Output Urine Total 700 ml 7975 ml Gastric Drainage Total 25 ml 725 ml # Bowel Movements 0 Exam Tall, cachectic man with anasarca orally intubated on vent Skin Jaundice Lungs Good air movement. coarse crackles at Lt base. No rhonchi, wheezes CV RRR, variable early systolic murmur over LUSB ABD Firm, distended, quiet, Not obviously tender Ext Warm, 2+ pedal edema extending to mid thigh Lab and Diagnostics Result Diagram: 04/10/17 0405 04/10/17 0405 X-Rays, CTs and MRIs Chest x-ray Stable pulmonary venous engorgement and support devices. Dictated by: New Powers M.D. on 04/03/2017 at 11:01 CT angiogram 1. Multiple, bilateral large pulmonary emboli. 2. Flattening of the cardiac interventricular septum suggesting right heart strain. 3. Hepatic metastatic disease. 4. Findings telephoned to Dr. Nathan Paz on 04/03/17 at 0817 hrs. Dictated by: Louisa Jones MD, PhD on 04/03/2017 at 8:13 Chest x-ray 1. Endotracheal tube and nasogastric tube positioned as described. 2. Mild cardiomegaly and moderate vascular congestion. Dictated by: Tristin Mckenzie M.D. on 04/03/2017 at 9:55 Chest x-ray 1. Endotracheal tube is positioned at the thoracic inlet. 2. Mild cardiomegaly and vascular congestion is similar to the prior study. Dictated by: Tristin Mckenzie M.D. on 04/03/2017 at 10:03 Additional Diagnostics PROCEDURE: US ABDOMEN FINDINGS: Liver: Liver is enlarged in size and heterogeneous in echotexture with multiple hepatic mass lesions previously identified again seen, having enlarged in size from the comparison ultrasound 03/07/17 and the largest measures up to 5.5 x 5.0 x 4.3 cm. Gallbladder: The gallbladder watts just above the upper limits of normal at 3.1 mm, and appears to contain sludge. A small amount of adjacent free fluid can be seen. Biliary ducts: Intrahepatic bile ducts are non-dilated. Extrahepatic bile duct caliber measures 3.5 mm. Normal is 6-7 mm or less in diameter, or 10 mm or less post-cholecystectomy. Pancreas: Visualized portions of the pancreas are sonographically normal. Spleen: Spleen is normal in size and homogeneous in echotexture. Kidneys: The right kidney is normal in size and echotexture. Right kidney measures 16.3 cm long; left kidney could not be seen. No solid masses. Aorta: Visualized aorta is normal in caliber at less than 3 cm. Iliacs: Proximal common iliac arteries are normal in caliber at less than 2.5 cm. IVC: Intrahepatic inferior vena cava is patent. Miscellaneous: There is mild for quadrant abdominal free fluid. IMPRESSION: 4 quadrant mild ascites noted, growing mass lesions throughout the liver parenchyma. Nonvisualization of the left kidney due to overlying bowel gas and inability of the patient to fully cooperate with positioning and breath holding. Dictated by: Donnie Harrington M.D. 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 IMP Resp failure Multifactorial with massive PE, LLL PNA and marked abdominal distension all contributing. Repeat imaging will help to determine degree of resolution of PE's. ID consult requested to guide empiric abx choice. Further treatment of his PNA, sepsis, ascites and PE will improve his chance for successful weaning from ventilation PE Bilat Massive PE. Had RV pressure overload on echo but no improvement after EKOS on followup CT. Possible this is not all thrombosis but instead some degree of tumor emboli given extent of hepatic involvement. Gastric CA Discussed during multidisciplinary rounds the timing of his chemo, probably FOLFOX. I expressed my opinion that the risk of chemo outweighs the potential benefit at this time due to concerns for 1) bleeding into liver or gut due to tumor necrosis while anticoagulated, 2) severe sepsis in the face of underlying partially treated bacterial infection, 3) tumor lysis syndrome Ascites A reflection of his elevated RV pressure and hypoalbuminemia along with his tumor involvement. We performed a diagnostic/therapeutic paracentesis of 1600 ml today but may need to repeat in order to give him the best chance at vent liberation once control of his infection and some resolution of his PE has occurred REC Paracentesis for culture, cytology ID consult Repeat CTPA and Abd/Pelvic CT in am Weaning trial tomorrow TPN ICU prophylaxis GI Prophylaxis: Proton Pump Inhibitor Resuscitation Status: CPR: Attempt Resuscitation Time spent 45 minutes spent in critical care exclusive of shared time and procedures Dony Vega MD Apr 10, 2017 14:57
--- NOTE | 2017-04-10 15:15 | NUR ---
Neuro: Sedated on Propofol at 35mcg with fentanyl 200mcg. Nods appropriately ~50% of the time when asked about pain or comfort. Some movement of upper extremities but not really purposeful, moves hand toward face/tube but does not grasp or reach for tube specifically. Dr Huizar considering sedation alternatives to allow more wakefulness yet remain calm. Ativan 0.5mg given for restlessness rather than bolus or increase propofol. Resp: Stable on current vent support. RR upper teens to 20's on vent rate of 12, volumes ~780ml. Suctioning for small amounts of creamy yellow secretions. Saturations mid to upper 90's on .60 FiO2. GI/: No BM, suppository given, no stool in rectal vault. No bowel tones. IAP 22 this morning and 12 this afternoon after paracentesis with 1600ml removed. Active order for CT chest and abdomen, awaiting CT availability. NPO, on TPN for now. PO/OG bowel meds held. Mother at bedside throughout day. Care explained as given, questions answered as able.
--- NOTE | 2017-04-10 15:22 | OP ---
[address] [address] OPERATIVE REPORT PATIENT: DREA PELAYO : 1990 MR#: [id number] ADMIT: 04/03/2017 JOB ID: [id number] DATE OF SURGERY: 04/10/2017 SURGEON: Dony Vega M.D. PROCEDURE: Diagnostic/therapeutic paracentesis. PREOPERATIVE DIAGNOSIS(ES): Tense ascites. POSTOPERATIVE DIAGNOSIS(ES): Tense ascites. PROCEDURE SUMMARY: After written informed consent from the patient's adult sister, ultrasound-guided paracentesis was performed. Following a time-out Real time two dimensional ultrasound was used to guide the advancement of a 5-Slovak catheter under continuous imaging into the peritoneal space in the right lower quadrant. Full barrier precautions and Sterile conditions were used. A total of 1600 mL of clear light yellow fluid was withdrawn. SPECIMENS: Were submitted in sterile Vacutainer tubes and blood culture vials for Peritoneal fluid for cytology. Bacterial culture, aerobic and anaerobic. Cell count and differential. Chemistries including LDH, protein and glucose. Patient condition The patient's condition following procedure critically ill as before. MTDD
--- NOTE | 2017-04-10 16:07 | NUR ---
Social Work: Continued Discharge Planning/Multidisciplinary Rounds D: Pt discussed in multidisciplinary rounds; the patient remains in CCU, vented. Multiple specialities following the patient including pulmonology, ID, oncology and the CCU team. [employer] briefly met with the patient's family to check in and provide support. At this time, they decline any social work needs or support. A: Pt who remains in CCU status. P: Evolving; [employer] to continue to follow to assess for d/c needs and provide support to the family as needed through the course of pt's hospitalization. MILAGROS Magana
[2017-04-10] MEDS ORDERED: Acetaminophen IV 1,000 mg IV ONE (16:35)
--- NOTE | 2017-04-10 17:49 | PROG NOTE ---
[address] [address] PROGRESS NOTE PATIENT: DREA PELAYO : 1990 MR#: [id number] ADMIT: 04/03/2017 JOB ID: [id number] DATE: 04/09/2017 IDENTIFICATION: This is a 27-year-old man with metastatic gastric type carcinoma involving the liver who has had progressive problems with pulmonary embolism, difficulty in managing anticoagulation, pneumonia and sepsis, and progressive liver failure. He remains on the respirator. The visit tonight was mainly intended to go over issues relating to prognosis and our management options with his family, which included the patient's three sisters and his father and his mother. SUBJECTIVE: The patient is still not able to communicate and is apparently reasonably comfortable now and is not requiring ventilator triggering. OBJECTIVE: He is febrile with a temperature of 38.2, pulse 127, respiratory rate 15, blood pressure 105/61, pulse ox 96%, FiO2 90%. He is about one hour out from a 2nd bronchoscopy. He is not further examined; the entirety of this 20 minute visit was engaged in [id number] patient and family counseling and coordination. IMAGING: Most recent imaging was a chest x-ray today showing stable support lines and tubes and small left pleural effusion and retrocardiac consolidation consistent with compressive atelectasis versus aspiration or infection. The bronchoscopy report from Dr. Funk demonstrates mucous plugging of the left lower lobe bronchus, with lavage productive of small plugs and patches of mucoid material on the anterior wall of the trachea, and minimal erythema and edema of the lower lobe airways. Most recent angiography CT was on April 05, 2017 showing multiple bilateral pulmonary embolism without appreciable improvement compared with April 03, 2017. LABORATORY VALUES: The white count is 22.6 with 80% segs, 9 bands, hemoglobin 10.0, hematocrit 31.2, MCV 71.7 consistent with his iron deficiency and history of GI bleeding, and platelets 379. The PTT has been in the 60s and 70s, consistent with the management of his argatroban therapy. The BUN and creatinine are 18 and 0.5. Calcium 8.2. Bilirubin has risen to 3.4; it was normal before admission. Alk phos is stable at 430. AST and ALT have dropped a little bit at 84 and 46. The CA19-9 was run on March 27 was 71. His liver biopsy confirming metastatic cancer was reported on March 27 and showed poorly differentiated adenocarcinoma with features consistent with but not diagnostic of upper GI primary. 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 He has confirmed metastatic disease to his liver and the working diagnosis is that this is metastatic gastric type malignancy and he was originally to be treated as such. Unfortunately his clinical condition deteriorated after development of a DVT and subsequent pulmonary emboli. The pulmonary emboli developed while he was anticoagulated with Lovenox and suggests that he is resistant to heparin or Lovenox. In fact, he was unable to be adequately anticoagulated on heparin and is now likely adequately anticoagulated on the argatroban drip which was started by Dr. Mirza. He has multiple medical complications which prevent treatment for his cancer. I spoke with the patient's father and family about this and indicated that we may never get to the point of being able to treat his cancer, that logic being that chemotherapy could precipitate a catastrophic event including worsening liver failure, tumor lysis syndrome, or worsening sepsis. The major hope is that he will stabilize from his critical care illnesses and be able to get out of the hospital, and be able to take chemotherapy, but at this point this is very uncertain. His family understands that. We do not wish to precipitate his demise by administering chemotherapy simply because we think it is the last chance we have to do that. As a result, I have suggested to the patient that we make a decision about his fitness for chemotherapy within this week's time period and that we not proceed forward unless there is a sign of stabilization. The progression of the liver disease is of course a major impediment to treatment and as his bilirubin rises the danger of complications from particularly 5-FU treatment becomes greater. I think the patient's family understands the difficulty of this situation and the fact that we have no good solution right now, but that it is also reasonable to wait a few more days before making a decision to allow us time to see if the current anticoagulation has afford any improvement in his cardiopulmonary function and to see if the antibiotic treatment has been able to manage his infection adequately.
--- NOTE | 2017-04-10 17:59 | PROG NOTE ---
[address] [address] PROGRESS NOTE PATIENT: DREA PELAYO : 1990 MR#: [id number] ADMIT: 04/03/2017 JOB ID: [id number] DATE: 04/10/2017 SUBJECTIVE: This is a 27-year-old man who is now in hospital day number eight, being hospitalized April 03 for massive bilateral pulmonary emboli, associated with metastatic gastric-type adenocarcinoma involving extensive liver metastases. He had been slated for initiation of chemotherapy with FOLFOX but became critically ill with pulmonary emboli. He was under treatment with enoxaparin for bilateral popliteal DVTs which were discovered on March 20; he had discontinued Lovenox for one day prior to admission, however, subsequently he has been in adequately anticoagulated with heparin and appears to be heparin resistant and is now on argatroban. His complicating features include GI bleed related to a large ulcerated lesion, probably also ulcerated hamartomatous polyp related to his underlying disease which is presumed to be PeutzJeghers disease. He also has progressive liver failure related to his liver metastases. The patient has been stable to slightly improved including his oxygenation and has been brought twice recently by Dr. Mirza and Dr. Green to open up the airways, but still has signs of sepsis and is being treated for MSSA sepsis. My role has been mainly a supportive role since the interventions that are being conducted now mainly relate to maintaining hemodynamic stability, treating his infection, treating his thromboses and now maintaining nutrition. After participating in rounds, I did speak with the family which included his father, mother and sister about the oncology approach to this patient which is certainly in complete agreement with the hospitalist, Infectious Disease, and Pulmonary approach. It is clear that he has major obstacles to any cancer treatment. These include rising hyperbilirubinemia with evidence of progressive liver failure, and ascites, with the attendant risks of administering chemotherapy, particularly 5-FU, sepsis with pulmonary infection, intended risks of worsening sepsis and shock related to chemotherapy even though FOLFOX is not a myelosuppressive regimen as most. Additional obstacles to treatment of his cancer include his bowel or his ileus which could result in risk for septicemia, his continued thromboses with at least a lack of improvement between age 15 and age 17, now hopefully improved on argatroban, treatment was not successful. Finally, the patient may develop tumor lysis syndrome and major fluid and electrolyte abnormalities if he is treated with chemotherapy. I suggested yesterday to the family that a decision should be made as to whether he is a chemotherapy candidate within this week's period of time in order that we may be realistic about his prognosis; currently, we understand that he will progress and if his cancer is not treated, but that the treatment may simply accelerate his demise. So, we, the family and the patient are in an extremely difficult position. What has been agreed on is that we will observe him for another few days, see what Dr. Goldberg has to add in his consultation, and if the patient becomes stable enough, he certainly can be treated with chemotherapy in an attempt to alleviate some of the complications of his cancer. Will continue to follow and provide support.
[2017-04-10] MEDS: Total Parenteral Nutrition 1 BAG IV SCH (21:02)
[2017-04-11] VITALS (12 sets, daily range): BP systolic 100–136; BP diastolic 45–81; PULSE 84–121; RESP 14–22; O2SAT 93–98
[2017-04-11] MEDS: fentaNYL 2,500 mCg/250 mL 2,500 MCG in IV Premix 1 EACH IV SCH ×3 (01:04→21:14)
[2017-04-11] MEDS: Propofol Inj 1,000,000 MCG in IV Premix 1 EACH IV PRN ×4 (01:53→20:32)
[2017-04-11] MEDS: Chlorhexidine 0.12% 15 mL Oral Solution MT SCH ×5 (03:22→20:31)
[2017-04-11 03:48] LABS: BASOPHILS % (AUTO) 0.4 % (0-3); EOSINOPHILS % (AUTO) 0.4 % (0-5); MONOCYTES % (AUTO) 7.5 % (4-12); Mean Corpuscular Hemoglobin 23.2 pg (27.0-35.0); Mean Corpuscular Volume 72.5 fL (81-100)
[2017-04-11 04:16] LABS: Magnesium 2.3 mg/dL (1.6-2.6); Phosphorus 3.2 mg/dL (2.5-4.9)
--- NOTE | 2017-04-11 05:16 | ABG ---
DateTimeAnalyzed 05:07:00 -_ pH ____7.360 - 7.350 7.450 pCO2 ___36.6__ -mmHg 35.0 45.0 pO2 102 -mmHg 69.0 116 HCO3- ___20.2__ -mmol/L 22.0 26.0 ABE ___-4.2__ -mmol/L -2.0 2.0 tHb ____9.4__ -g/dL 12.0 18.0 O2Hb ___96.0__ -% COHb ____1.0__ -% 0.0 1.5 MetHb ____1.2__ -% 0.4 1.5 sO2 ___98.2__ -% 25.0 FIO2 ___40.0__ -% PEEP ___10.0__ -cmH2O Set_RR ___12.0__ -b/min Vt __810.0__ -L Drawn By TLA - Oxygen Device 2 PRESSURE CONTROL -____ Date/Time Notified____ 05:15:00 -_ Spontaneous_RR ___20.0__ -b/min Notified By TLA\\ - Notified Whom BARBRA- RN - B 758 -mmHg tO2 ___12.8__ -Vol% Yaakov test N/A -
--- NOTE | 2017-04-11 05:56 | NUR ---
Sedation / resp / cardiac Patient increasingly restless over night, Propofol and Fentanyl titrated up. PRN Ativan dose given x1. Patient opening eyes, pulling against restraints, moving legs, moving head from side to side. RT titrated FiO2 from 60% to 40% overnight. SpO2 high 90s. AM ABGs stable after these changes. MD updated. Patient mostly had just small amounts of creamy, yellowish secretions. Moderate amount of secretions on one particular suction. Patient's telemetry shows ST 115-130. Patient had an 11 beat run of vtach. Rare PVCs also noted. MD notified of these changes. BP stable.
[2017-04-11 07:45] LABS: Bilirubin, Direct 4.5 mg/dL (0.0-0.3)
[2017-04-11] MEDS: Pantoprazole 4 mg/mL 10 mL Inj IVPUSH SCH ×2 (07:52→17:05)
[2017-04-11] MEDS: Ertapenem Inj 1,000 MG in 0.9% Sodium Chloride 50 ML IV SCH (07:52)
[2017-04-11] MEDS: Insulin LISPRO 300 Unit/3 mL Inj SUBQ SCH ×4 (08:00→20:45)
--- NOTE | 2017-04-11 08:18 | PCM.PNMED ---
Subjective Date of Service Apr 11, 2017 Subjective Curtis Malloy is a 27 yo man with recent diagnosis of gastric adenocarcinoma with hepatic metastases who presented to the hospital with saddle pulmonary embolism and acute respiratory failure. He was treated with EKOS catheter directed thrombolytic therapy x 3 with no change in massive clot burden on repeat CT. Heparin gtt was ineffective and was switched to Argatroban ggt. He also got bronchoscopy twice to remove the mucus plugs, which seems to help his respiratory status. Overnight, patient tolerating vent settings, FiO2 has weaned down to 40% and 10cm of PEEP. Patient continues to have intermittent fever at night, Tmax 38.2 over night, resolved with Tylenol. He also had a run of 11 beats of Vtach last night, HR in the 110s-130s. Otherwise, he has been hemodynamically stable without any episodes of hypotension. Nursing reports increasing restlessness that required up-titrating of Fentanyl 225mcg and Propofol 50 currently. PTT has been therapeutic on Argatroban. The patient's intra-abdominal pressure decreased to 14 following the paracentesis, but increases back to 20 this morning. In spite of different bowel regimen, patient has no BM since admission. He is scheduled for CT angiogram chest and CT abd/pelvis this morning. He has had a few desaturation episodes down to 87% so FiO2 increases up to 50%. Exam Vital Signs Vital Sign - Last Date Time Temp Pulse Resp B/P Pulse Ox O2 Delivery O2 Flow Rate FiO2 04/11/17 04:20 116 104/59 96 40 04/11/17 03:21 Ventilator 04/11/17 03:20 36.8 18 Intake and Output 04/10/17 04/10/17 04/11/17 Cumulative From/Thru 14:59 22:59 06:59 04/03/17 07:34 - 04/11/17 06:24 Intake Total 2228 ml 2055 ml 28652 ml Output Total 570 ml 775 ml 46692 ml Balance 1658 ml 1280 ml 34906 ml Intake Oral 0 ml IV Total 1079 ml 838 ml 55052 ml Tube Feeding 1407 ml TPN/PPN 1149 ml 1217 ml 2366 ml Packed Cells 351 ml Tube Irrigant 480 ml Output Urine Total 570 ml 675 ml 9220 ml Gastric Drainage Total 100 ml 825 ml # Bowel Movements 0 0 Exam Gen: Intubated and sedated young man, pale, cachetic, minimally responsive to external stimuli, not following commands for me. HEENT: ET tube in place and appears patent, scleral icterus noted bilaterally. Cardio: Regular rhythm, tachycardia with no murmurs rubs or gallops Resp: relatively clear to auscultation bilaterally and somewhat diminished in bilateral lower lung irwin with a few crackles. Abdomen: distended and rigid to palpation, abdominal wall somewhat edematous, fluid wave noted, hypoactive bowel sound, appears nontender to palpation. Extremities: Warm to the touch, moderate pitting edema in the bilateral lower extremities up to mid tibia. Skin: pale, slight jaundice, dry and intact. Neuro: CN difficult to assess in this intubated and sedated patient. IVs and Medications Medications Reviewed: Medications were reviewed in detail Medications High-risk medications include Fentanyl and Propofol. Lab and Diagnostics Result Diagram: 04/11/1733404/11/17334 X-Rays, CTs and MRIs CT ANGIO CHEST PULMONARY EMBOLISM 1. Slight decrease in severe pulmonary embolic disease with resolution of the previously seen saddle embolus spanning the main pulmonary artery bifurcation. However, significant embolic burden remains bilaterally. 2. Improved aeration of the left lower lobe. Decreased right lower lobe pneumonia. 3. Moderate ascites and severe hepatic metastatic disease. 4. Healing left rib fractures. 5. Gastroesophageal reflux. Dictated by: Landon Noel M.D. on 04/11/2017 at 10:12 CT ABDOMEN AND PELVIS WITH CONTRAST 1. Interval increased amount of large abdominal and pelvic ascites, presumably from peritoneal carcinomatosis. 2. Numerous variably sized hepatic metastases again noted, most confluent in the left hepatic lobe. 3. 6.4 x 5.5 x 3.5 cm left pelvic cystic lesion appears to arise from the left seminal vesicle. 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 4. Small bibasilar mobile pleural effusions, with associated compressive atelectasis. Dictated by: Moisés Brasher M.D. on 04/11/2017 at 10:32 Chest x-ray Stable pulmonary venous engorgement and support devices. Dictated by: New Powers M.D. on 04/03/2017 at 11:01 CT angiogram 1. Multiple, bilateral large pulmonary emboli. 2. Flattening of the cardiac interventricular septum suggesting right heart strain. 3. Hepatic metastatic disease. 4. Findings telephoned to Dr. Nathan Paz on 04/03/17 at 0817 hrs. Dictated by: Louisa Jones MD, PhD on 04/03/2017 at 8:13 Chest x-ray 1. Endotracheal tube and nasogastric tube positioned as described. 2. Mild cardiomegaly and moderate vascular congestion. Dictated by: Tristin Mckenzie M.D. on 04/03/2017 at 9:55 Chest x-ray 1. Endotracheal tube is positioned at the thoracic inlet. 2. Mild cardiomegaly and vascular congestion is similar to the prior study. Dictated by: Tristin Mckenzie M.D. on 04/03/2017 at 10:03 US ABDOMEN IMPRESSION: 4 quadrant mild ascites noted, growing mass lesions throughout the liver parenchyma. Nonvisualization of the left kidney due to overlying bowel gas and inability of the patient to fully cooperate with positioning and breath holding. Dictated by: Donnie Harrington M.D. on 04/10/2017 Additional Diagnostics PROCEDURE: US ABDOMEN FINDINGS: Liver: Liver is enlarged in size and heterogeneous in echotexture with multiple hepatic mass lesions previously identified again seen, having enlarged in size from the comparison ultrasound 03/07/17 and the largest measures up to 5.5 x 5.0 x 4.3 cm. Gallbladder: The gallbladder watts just above the upper limits of normal at 3.1 mm, and appears to contain sludge. A small amount of adjacent free fluid can be seen. Biliary ducts: Intrahepatic bile ducts are non-dilated. Extrahepatic bile duct caliber measures 3.5 mm. Normal is 6-7 mm or less in diameter, or 10 mm or less post-cholecystectomy. Pancreas: Visualized portions of the pancreas are sonographically normal. Spleen: Spleen is normal in size and homogeneous in echotexture. Kidneys: The right kidney is normal in size and echotexture. Right kidney measures 16.3 cm long; left kidney could not be seen. No solid masses. Aorta: Visualized aorta is normal in caliber at less than 3 cm. Iliacs: Proximal common iliac arteries are normal in caliber at less than 2.5 cm. IVC: Intrahepatic inferior vena cava is patent. Miscellaneous: There is mild for quadrant abdominal free fluid. IMPRESSION: 4 quadrant mild ascites noted, growing mass lesions throughout the liver parenchyma. Nonvisualization of the left kidney due to overlying bowel gas and inability of the patient to fully cooperate with positioning and breath holding. Dictated by: Donnie Harrington M.D. 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 Hospital Day 9. #. Sepsis due to left lower lobe MSSA pneumonia, new and active. - Appears to be methicillin-sensitive Staphylococcus aureus, confirmed by bronchoscopy and lavage on 04/06. The bronch wash from the also grows Staph aureus, pending susceptibilities. - Appreciate Dr. Goldberg's input. It is unclear if the patient has significant infection. His WBC trends down slightly today, but has been persistent at about 20,000 since admission - Per Dr. Goldberg's recommendations, will continue with ertapenem, which has good activity against MSSA and provides some broader spectrum coverage for aspiration type pneumonia. Day 2 on Ertapenem. - Studies of the ascitic fluid from yesterday show that the abdominal albumin, the SAAG, is 0.8, consistent with an exudative type ascites. There was 343 white cells in the peritoneal fluid, 50% were polys, so this does not meet the standard criteria for bacterial peritonitis. Culture is pending. - His procalcitonin is consistently elevated but liver metastases can produce elevated procalcitoninb per Dr. Goldberg; so we will stop checking Procalcitonin at this point. - Will check UA today for any new infection. Urine culture on 04/06 was negative. #. Acute bilateral massive pulmonary embolism with obstructive shock, POA, active. - RV pressure overload on echo but no improvement after EKOS x [address]. - Possible this is not all thrombosis but instead some degree of tumor emboli given extent of hepatic involvement. - Today CT showed Slight decrease in severe pulmonary embolic disease with resolution of the previously seen saddle embolus spanning the main pulmonary artery bifurcation. However, significant embolic burden remains bilaterally. - Argatroban seems to be effective with therapeutic PTT levels. 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 - Continue with Argatroban drip. #. Abdominal ascites, new and active. - Likley a reflection of his elevated RV pressure and hypoalbuminemia along with his tumor involvement. - Intra-abdominal pressure improved following paracentesis with 1600ml of fluid removal, but increases back to 20 this morning. - May need to repeat paracentesis today or tomorrow in order to give him the best chance at vent liberation. #. Acute Hypoxemic respiratory failure, on mechanical ventilation since April 03, active. - Likely is multifactorial with the pneumonia, pulmonary embolism, and mucous plugging. S/p bronchoscopy x2. - Currently on pressure control ventilation. Slight improvement of respiratory status after the bronchoscopy yesterday, but is still unable to successfully decreased FiO2 for prolonged periods, which may be due to evolving V/Q mismatch with lysis of the pulmonary emboli and movement of clot into smaller vessels. - Will continue weaning down as tolerated for sats above 95% and also try to bring the PEEP down to 5cm if patient can tolerate it. - Will wean off propofol and begin Precedex today 04/11/2017. #. Hyperbilirubinemia, new and active. - Bilirubin and Alkaline phos trending up; scleral icterus on exam; likely secondary to hepatic metastases. - Abdominal U/S today showed growing mass lesions throughout the liver parenchyma. - Will check abdominal and pelvis CT in the morning to rule out pancreatobiliary carcinoma and check the progression of his cancer. #. Metastatic liver cancer due to poorly differentiated adenocarcinoma. - CT abd/pelvis today reveals numerous variably sized hepatic metastases, most confluent in the left hepatic lobe. - Given the rapid progression of his adenocarcinoma, it is reasonable to proceed with chemotherapy if his family choose to go that route. However, we discussed the risk of chemo with the family, includin) bleeding into liver or gut due to tumor necrosis while anticoagulated, 2) severe sepsis in the face of underlying partially treated bacterial infection, 3) tumor lysis syndrome. - Discussed the timing of his chemo, probably FOLFOX, with Dr. Suazo. In addition to FOLFOX, we will soon get the results of other markers including HER- 2 to determine whether or not the patient could benefit from additional therapy. - Plan to have another family conference sometime this evening or tomorrow morning with Dr. Suazo. Other medical issues will be managed by the primary care team: #. Constipation. #. Malnutrition. #. Gastric adenocarcinoma with liver metastases status post liver biopsies on March 23. #. Anasarca, new and active. #. Acute iron deficiency anemia. #. Bilateral popliteal DVT, POA and active. Patient is on PPO BID for GI prophylaxis. He is on Argatroban ggt for PE, which is therapeutic. Pain Evaluation: Adequate Pain Control GI Prophylaxis: Proton Pump Inhibitor VTE Prophylaxis: Other (Argatroban ggt) Resuscitation Status: CPR: Attempt Resuscitation BourgeoisMary griffin [facility] Apr 11, 2017 08:18 GI Prophylaxis: Proton Pump Inhibitor VTE Prophylaxis: Other (Argatroban ggt) Resuscitation Status: CPR: Attempt Resuscitation [facility] Apr 11, 2017 08:18
[2017-04-11] MEDS: Polyethylene Glycol (PEG) 17 Gm Powder PO SCH ×2 (08:30→20:30)
--- NOTE | 2017-04-11 08:31 | NUR ---
MD aware restraints continued
[2017-04-11] MEDS: [UNRECOGNIZED DRUG - REMARK] XX SCH (08:56)
--- NOTE | 2017-04-11 09:04 | PROG NOTE ---
[address] [address] PROGRESS NOTE PATIENT: DREA PELAYO : 1990 MR#: [id number] ADMIT: 04/03/2017 JOB ID: [id number] DATE: 04/11/2017 REASON FOR FOLLOW UP: Leukocytosis with elevated procalcitonin in a patient with underlying metastatic gastric carcinoma. INTERVAL HISTORY: Overnight, the patient has been relatively stable and, in fact, perhaps slightly better, though he remains ventilator dependent. His ventilator has been weaned down to FiO2 of 40 and 10 of PEEP, and he has been off vasopressors. He continues to have reasonable urine output and he has been hemodynamically stable, albeit tachycardic. Yesterday, he underwent a 1.5 L paracentesis which showed that he had a low-gradient ascites consistent with malignancy. This morning, the case was discussed extensively at the bedside with Dr. Suazo of Hematology/Oncology, as well as with the patient's family and the bedside nurse. PHYSICAL EXAMINATION: Reveals an intubated, sedated, though somewhat restless gentleman. The patient is moving around on the ventilator and does not follow commands but is clearly much more awake than he was yesterday despite fairly aggressive sedation. His current vital signs include temp 36.8, and he was febrile to 38.2 around midnight. His pulse is around 120 with sinus tachycardia. Blood pressure 104/59, and as mentioned, his vent settings 40% FiO2, 10 of PEEP. Urine output continues to be reasonable. Examination of the eyes reveals they are closed and the patient will not open them even though he is moving around. Oral endotracheal tube, oral gastric tube in good position. No JVD is noted. The patient's lungs are notable for basically clear breath sounds bilaterally. Cardiac tones regular rate and rhythm but quite tachycardic, 120 or so as a rate. No murmurs are heard. The abdomen is tense, distended and with rising intra-abdominal pressures despite removal of 1.5 L yesterday. The patient's penis and scrotum are unremarkable. Lowery catheter is present. Minimal peripheral edema. No skin rash noted. LABORATORIES: Include white count 20,000, platelet count 397 yesterday. Today's is not yet available due to platelet clumping. Differential 86% segs, which is little changed. Creatinine 0.94. Bilirubin 4.5, alk phos 395, AST 146, albumin 2.4. Procalcitonin was 15 yesterday, today 16. I do not see any real significance to continue these numbers and I would try stop checking procalcitonin in this case. Studies of the ascitic fluid from yesterday show that the abdominal albumin, the SAAG, is 0.8, consistent with an exudative type ascites. There was 343 white cells in the peritoneal fluid, 50% were polys, so this does not meet the standard criteria for bacterial peritonitis. The other microbiologic data includes the fact that the ascitic fluid is at this point culture negative and it was properly incubated in blood culture bottles. The bronch wash from the is growing Staph aureus, and we await susceptibilities. Bronch wash from the grew Staph aureus which was MSSA. Blood cultures are negative. IMAGING: Was again reviewed. We looked at yesterday's chest x-ray. Again, I think is basically clear, though there may be a bit of retrocardiac infiltrate. The abdominal ultrasound done yesterday, unfortunately, shows progressive liver mets. IMPRESSION: It remains unclear to me if this patient has any significant infection. Two bronch washes have grown Staph aureus in moderate concentrations which could represent colonization, so called Staphylococcal tracheobronchitis, or conceivably, Staph aureus pneumonia, methicillin-sensitive Staphylococcus aureus (MSSA) pneumonia, but I think that is unlikely based on his chest x-ray and overall clinical picture. Given that his tumor mass is extensive and rapidly progressing, I think that time is of the essence with respect to his chemotherapy. Given the absence of overwhelming infection and the questionable evidence that he has any infection at all, I think it is reasonable to proceed with chemotherapy at this time. RECOMMENDATIONS: 1. Will continue with ertapenem as a single drug as it has good activity against MSSA, and also provide some broader spectrum coverage for aspiration type pneumonia in this critically ill gentleman. 2. I see no infectious disease reason not to start chemo as early as today. 3. I have discussed this case in detail with Dr. Suazo, and I understand that there will be intrinsic risks including increased immunosuppression secondary to chemotherapy, but I think those are perhaps acceptable risks under these extraordinary circumstances.
[2017-04-11] MEDS ORDERED: Dexmedetomidine Inj 400 MCG in 0.9% Sodium Chloride 100 ML IV SCH (09:10)
--- NOTE | 2017-04-11 10:22 | DRSVH ---
PROCEDURE: CT ANGIO CHEST PULMONARY EMBOLISM ([id number]) INDICATIONS: Saddle PE TECHNIQUE: After the administration of intravenous contrast, 2 mm thick sections acquired from the pulmonary api mao to the posterior costophrenic angles. 3-dimensional maximum intensity projection (MIP) coronal a nd sagittal reformats were then acquired through the thorax. For radiation dose reduction, the follo wing was used: automated exposure control, adjustment of mA and/or kV according to patient size. COMPARISON: [facility], CT, CT ANGIO CHEST PE, 04/05/2017, 17:44. [facility] , CT, CT ANGIO CHEST PE, 04/03/2017, 7:58. FINDINGS: Image quality: Excellent. Pulmonary arteries: Pulmonary arteries are normal in size. The previously seen saddle embolus spanni ng the main pulmonary artery bifurcation is no longer present. Filling defects remain within the dist al aspects of the right and left pulmonary arteries at their bifurcation points. Filling defects darius in within the lobar, segmental, and subsegmental branches of the right upper, right middle, right low er, left upper, and left lower lobe pulmonary artery branches. Lungs and pleura: No pneumothorax. Small bilateral pleural effusions are present, as before. There is decreased air space opacity within the left lower lobe, with improved aeration of the left lower lob e bronchus. There is decreased, mild patchy airspace opacity within the right lower lobe diffusely. M ild groundglass density within the right apex is present, new since the prior examination. Central ai rways are patent. Mediastinum: Heart size is enlarged, without pericardial effusion. No mediastinal or hilar adenopat hy. Thoracic aorta is normal in caliber and enhancement. Esophagus is normal in caliber, without hi atal hernia. There is reflux of gastric contents into the esophagus. Bones and chest wall: No suspicious bony lesions. Healing mildly displaced left posterolateral 7th, 8th, 9th, 10th, and 11th rib fractures are present. There appears to be congenital variation in ster nal segmentation as before. Thyroid gland is not well-seen, but is grossly unremarkable as visualized . No axillary or supraclavicular adenopathy. Abdomen: Visualized portions of the upper abdomen demonstrates moderate ascites and multiple hepatic masses, as before. IMPRESSION: 1. Slight decrease in severe pulmonary embolic disease with resolution of the previously seen saddle embolus spanning the main pulmonary artery bifurcation. However, significant embolic burden remains b ilaterally. 2. Improved aeration of the left lower lobe. Decreased right lower lobe pneumonia. 3. Moderate ascites and severe hepatic metastatic disease. 4. Healing left rib fractures. 5. Gastroesophageal reflux. Dictated by: Landon Noel M.D. on 04/11/2017 at 10:12 Approved by: Landon Noel M.D. on 04/11/2017 at 10:21
--- NOTE | 2017-04-11 10:39 | ABG ---
DateTimeAnalyzed 10:32:00 -_ pH ____7.381 - 7.350 7.450 pCO2 ___34.2__ -mmHg 35.0 45.0 pO2 ___55.1__ -mmHg 69.0 116 HCO3- ___19.8__ -mmol/L 22.0 26.0 ABE ___-4.2__ -mmol/L -2.0 2.0 tHb ____9.5__ -g/dL 12.0 18.0 O2Hb ___86.9__ -% COHb ____1.2__ -% 0.0 1.5 MetHb ____0.9__ -% 0.4 1.5 sO2 ___88.8__ -% 25.0 FIO2 ___40.0__ -% PEEP ___10.0__ -cmH2O Set_RR ___12.0__ -b/min Vt __738.0__ -L Drawn By jmw - Oxygen Device 2 PRESSURE CONTROL -____ Date/Time Notified____ 10:39:00 -_ Spontaneous_RR ___20.0__ -b/min Notified By jmw - Notified Whom DR RAMIRES - B 758 -mmHg tO2 ___11.6__ -Vol% Yaakov test N/A -
--- NOTE | 2017-04-11 10:45 | DRSVH ---
PROCEDURE: CT ABDOMEN AND PELVIS WITH CONTRAST ([id number]) INDICATIONS: 27 year-old male with hepatic metastases. TECHNIQUE: After the administration of intravenous contrast, 5 mm thick sections acquired from the diaphragm to the symphysis. 5 mm coronal and sagittal reformats were acquired. For radiation dose reduction, the following was used: automated exposure control, adjustment of mA and/or kV according to patient siz e. COMPARISON: [facility], CT, CT ANGIO CHEST PE, 04/11/2017, 9:37. [facility], US, US ABDOMEN, 04/10/2017, 9:08. [facility], CT, CT ANGIO CHEST PE, 04/05/2017, 17:44. [facility], US, US GUIDED BX LIVER, 03/23/2017, 11:45. [facility], MR, MR ABD W&WO CON, 03/07/2017, 20:27. FINDINGS: Image quality: Excellent. ABDOMEN: Lung bases: Small bibasilar mobile pleural effusions are again noted, along with bibasilar compressiv e atelectasis. Heart size is normal. Solid organs: Numerous hepatic hypoenhancing mass lesions are again noted, most confluent in the lef t hepatic lobe. Spleen is normal in size. Gallbladder wall thickness is normal. Biliary system is no n dilated. Pancreas enhances normally. No adrenal nodules. Right kidney demonstrates normal size an d enhancement, without hydronephrosis. 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 Peritoneum and bowel: Nasogastric tube is present, with small amount of oral contrast within the gas tric lumen. Bowel loops demonstrate normal wall thickness and caliber. Large abdominal and pelvic asc ites has increased in amount since April 05, 2017. No free air. Nodes and vessels: No retroperitoneal or mesenteric adenopathy by size criteria. Aorta and inferior vena cava are normal in size. Miscellaneous: No ventral hernias. PELVIS: Genitourinary: The bladder is decompressed by a Lowery catheter, with small nondependent intraluminal gas. Prostate gland is small in overall size. Left pelvic cystic lesion measures 6.4 x 5.5 x 3.5 cm, and may arise from the left seminal vesicle. Miscellaneous: No inguinal hernias or adenopathy. Bones: No suspicious bony lesions. No vertebral body compression fractures. IMPRESSION: 1. Interval increased amount of large abdominal and pelvic ascites, presumably from peritoneal carcin omatosis. 2. Numerous variably sized hepatic metastases again noted, most confluent in the left hepatic lobe. 3. 6.4 x 5.5 x 3.5 cm left pelvic cystic lesion appears to arise from the left seminal vesicle. 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 4. Small bibasilar mobile pleural effusions, with associated compressive atelectasis. Dictated by: Moisés Brasher M.D. on 04/11/2017 at 10:32 Approved by: Moisés Brasher M.D. on 04/11/2017 at 10:43
--- NOTE | 2017-04-11 11:00 | NUR ---
NUTRITION FOLLOW-UP: ASSESS: 27 YO male with a recent diagnosis of metastatic gastric cancer with family history of Peutz-Jeghers syndrome admitted to CCU for bilateral DVTs and sudden onset shortness of breath. Pt remains intubated. He has become septic due to pneumonia. TF off due to high residuals and lack of bowel movement. TPN started 04/09, tolerated well. TPN to be advanced to goal today. Pt had increased agitation overnight so propofol was increased. Pharmacy aware of TPN advancement. Pt had paracentesis 04/10 w/ 1600ml removed. PMHx: Metastatic gastric cancer, upper GI bleed, liver biopsy, Peutz-Jeghers syndrome, LE DVTs. DIET: NPO. ENTERAL FEEDING: OFF LABS: Reviewed. Bun 39, Glu 150, lactic acid 2.1, Ca 8.3, T.bili 5.2, AST 146, ALT 45, alk phos 395, Alb 2.1 MEDICATIONS: Reviewed. Fentanyl, reglan, Propofol rate currently 24.3ml/hr 641.52kcal/day GI: No stool reported, with recent hx of constipation related to pain medication regimen. SKIN: No issues reported. ANTHROPOMETRICS: Current Wt: 81.8 kg, BMI 20.3 kg/m2. Admit weight: 81.0, IBW: 100 kg (81% IBW) ESTIMATED NEEDS (CANCER/VENT ): Calories: 1780-2425kcal/day (22-30kcal/kg BW) Protein: 120-145 g/day (1.5-1.8 g/kg BW) Fluid: Approx. 2425mL (30mL/kg BW) NUTRITION DIAGNOSIS: 1) Inadequate oral intake related to altered GI function, as evidenced by NPO/vent status, enteral feeding on hold - PERSISTS. 2) Increased nutrient needs related to cancer and underweight status, as evidenced by 81% IBW - PERSISTS. INTERVENTION: 1) Recommend advance to goal TPN of Dex 300 g, AA 120 g, Lipids 10g to provide 1600 kcal, 120g protein (2241kcal TPN+Propofol), meeting 100% estimated needs. Adjust goal rate based on Propofol rate. Will continue to monitor lab trends closely MONITOR/EVALUATE: NPO/vent status, TPN kev/advc, labs, weight, POC, GI/nutrition status. Follow per high nutrition risk guidelines.
[2017-04-11] MEDS: Dexmedetomidine 400 mCg/100 mL 400 MCG in IV Premix 1 EACH IV PRN ×2 (11:11→18:19)
--- NOTE | 2017-04-11 12:04 | NUR ---
Palliative Care Palliative Care received verbal order from Dr Michel 04/11/17 to assist with goals of care. Patient admitted 04/03/17. Sravan Malloy ([facility]) [phone] Palliative Care to follow. Rebecca Onofre
--- NOTE | 2017-04-11 12:45 | NUR ---
Decrease in sats this am. Trip to CT this am. UAP elevated Pt continues on the vent, he was at 40% FIO2 but de sat'ing to 88% despite suctioning and re positioning. FIO2 was increased to 50% and his sats are now 95-96%. Peep remains at 10. Pt was taken to CT this am and he tolerated this well with additional bolus doses of fentanyl and propofol. He had been quite restless, moving his head back and forward, pulling at restraints and trying to sit up. Precedex was added and I have titrated this up to .5mcg. He is less restless this afternoon and is resting comfortably at this time. UAP this am was 20 and at noon was 25, was notified.
--- NOTE | 2017-04-11 16:19 | PCM.PNMED ---
Subjective Date of Service Apr 11, 2017 Subjective Overnight: FiO2 weaned to 40 remains off vasopressors. Good urine output and mostly hemodynamically stable, still tachycardic fever spike 38.2 overnight. Received paracentesis with 1.5 L fluid removal. Sedation weaned with increasing purposeful movement. CT scan this morning showed return of abdominal /pelvic ascites, redemonstration of hepatic metastases reported to be increasing in size. CT angios showed a slight decrease in PE though still with significant embolic presence. Improved aeration of left lower lobe and decreased right lower lobe pneumonia. Still without bowel movement Exam Vital Signs Vital Sign - Last Date Time Temp Pulse Resp B/P Pulse Ox O2 Delivery O2 Flow Rate FiO2 04/11/17 10:52 125 136/81 93 40 04/11/17 08:21 Ventilator 04/11/17 08:21 37.3 16 Intake and Output 04/10/17 04/10/17 04/11/17 Cumulative From/Thru 15:00 23:00 07:00 04/03/17 07:34 - 04/11/17 06:24 Intake Total 2228 ml 2055 ml 83580 ml Output Total 570 ml 775 ml 62745 ml Balance 1658 ml 1280 ml 21208 ml Intake Oral 0 ml IV Total 1079 ml 838 ml 46145 ml Tube Feeding 1407 ml TPN/PPN 1149 ml 1217 ml 2366 ml Packed Cells 351 ml Tube Irrigant 480 ml Output Urine Total 570 ml 675 ml 9220 ml Gastric Drainage Total 100 ml 825 ml # Bowel Movements 0 0 Exam General: Intubated and sedated. Frequent spontaneous movement of his head, possibly some purposeful movement HEENT: Normocephalic, atraumatic. Scleral icterus Cardiovascular: Regular rate and rhythm Pulmonary: Clear to auscultation bilaterally with no crackles, wheezes, or rhonchi. Abdomen: Distended and tense to palpation Extremities: Lower extremity pitting edema to mid tibia. Bilateral upper extremity hand edema Skin: Warm to palpation, normal turgor Neurological: Intubated and sedated IVs and Medications Medications Reviewed: Medications were reviewed in detail Lab and Diagnostics Result Diagram: 04/11/1733404/11/17334 X-Rays, CTs and MRIs CT ANGIO CHEST PULMONARY EMBOLISM 1. Slight decrease in severe pulmonary embolic disease with resolution of the previously seen saddle embolus spanning the main pulmonary artery bifurcation. However, significant embolic burden remains bilaterally. 2. Improved aeration of the left lower lobe. Decreased right lower lobe pneumonia. 3. Moderate ascites and severe hepatic metastatic disease. 4. Healing left rib fractures. 5. Gastroesophageal reflux. Dictated by: Landon Noel M.D. on 04/11/2017 at 10:12 CT ABDOMEN AND PELVIS WITH CONTRAST 1. Interval increased amount of large abdominal and pelvic ascites, presumably from peritoneal carcinomatosis. 2. Numerous variably sized hepatic metastases again noted, most confluent in the left hepatic lobe. 3. 6.4 x 5.5 x 3.5 cm left pelvic cystic lesion appears to arise from the left seminal vesicle. 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 4. Small bibasilar mobile pleural effusions, with associated compressive atelectasis. Dictated by: Moisés Brasher M.D. on 04/11/2017 at 10:32 Chest x-ray Stable pulmonary venous engorgement and support devices. Dictated by: New Powers M.D. on 04/03/2017 at 11:01 CT angiogram 1. Multiple, bilateral large pulmonary emboli. 2. Flattening of the cardiac interventricular septum suggesting right heart strain. 3. Hepatic metastatic disease. 4. Findings telephoned to Dr. Nathan Paz on 04/03/17 at 0817 hrs. Dictated by: Louisa Jones MD, PhD on 04/03/2017 at 8:13 Chest x-ray 1. Endotracheal tube and nasogastric tube positioned as described. 2. Mild cardiomegaly and moderate vascular congestion. Dictated by: Tristin Mckenzie M.D. on 04/03/2017 at 9:55 Chest x-ray 1. Endotracheal tube is positioned at the thoracic inlet. 2. Mild cardiomegaly and vascular congestion is similar to the prior study. Dictated by: Tristin Mckenzie M.D. on 04/03/2017 at 10:03 US ABDOMEN IMPRESSION: 4 quadrant mild ascites noted, growing mass lesions throughout the liver parenchyma. Nonvisualization of the left kidney due to overlying bowel gas and inability of the patient to fully cooperate with positioning and breath holding. Dictated by: Donnie Harrington M.D. on 04/10/2017 CT ANGIO CHEST PULMONARY EMBOLISM IMPRESSION: 1. Slight decrease in severe pulmonary embolic disease with resolution of the previously seen saddle embolus spanning the main pulmonary artery bifurcation. However, significant embolic burden remains bilaterally. 2. Improved aeration of the left lower lobe. Decreased right lower lobe pneumonia. 3. Moderate ascites and severe hepatic metastatic disease. 4. Healing left rib fractures. 5. Gastroesophageal reflux. Dictated by: Landon Noel M.D. on 04/11/2017 CT ABDOMEN AND PELVIS WITH CONTRAST IMPRESSION: 1. Interval increased amount of large abdominal and pelvic ascites, presumably from peritoneal carcinomatosis. 2. Numerous variably sized hepatic metastases again noted, most confluent in the left hepatic lobe. 3. 6.4 x 5.5 x 3.5 cm left pelvic cystic lesion appears to arise from the left seminal vesicle. 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 4. Small bibasilar mobile pleural effusions, with associated compressive atelectasis. Dictated by: Moisés Brasher M.D. on 04/11/2017 Additional Diagnostics PROCEDURE: US ABDOMEN FINDINGS: Liver: Liver is enlarged in size and heterogeneous in echotexture with multiple hepatic mass lesions previously identified again seen, having enlarged in size from the comparison ultrasound 03/07/17 and the largest measures up to 5.5 x 5.0 x 4.3 cm. Gallbladder: The gallbladder watts just above the upper limits of normal at 3.1 mm, and appears to contain sludge. A small amount of adjacent free fluid can be seen. Biliary ducts: Intrahepatic bile ducts are non-dilated. Extrahepatic bile duct caliber measures 3.5 mm. Normal is 6-7 mm or less in diameter, or 10 mm or less post-cholecystectomy. Pancreas: Visualized portions of the pancreas are sonographically normal. Spleen: Spleen is normal in size and homogeneous in echotexture. Kidneys: The right kidney is normal in size and echotexture. Right kidney measures 16.3 cm long; left kidney could not be seen. No solid masses. Aorta: Visualized aorta is normal in caliber at less than 3 cm. Iliacs: Proximal common iliac arteries are normal in caliber at less than 2.5 cm. IVC: Intrahepatic inferior vena cava is patent. Miscellaneous: There is mild for quadrant abdominal free fluid. IMPRESSION: 4 quadrant mild ascites noted, growing mass lesions throughout the liver parenchyma. Nonvisualization of the left kidney due to overlying bowel gas and inability of the patient to fully cooperate with positioning and breath holding. Dictated by: Donnie Harrington M.D. 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 Hospital Day 9. #. Massive bilateral pulmonary emboli with obstructive shock, acute. Slowly improving. -Confirmed home dose of Lovenox 80 mg daily, most likely missing intermittent dosing prior to admission -Repeat CT shows unchanged clot burden despite treatment with tPA and EKOS 3. -Continue with Argatroban drip. -Continue to attempt to wean FiO2 -Additional CT imaging today shows slight improvement in emboli burdened though still significant #. Acute hypoxic respiratory failure, POA ongoing. - Secondary to PE and collapsed lung. Minimal success with decreasing FiO2 for prolonged periods, possibly due to VQ mismatch from lysis of the pulmonary emboli resulting in subsequent showering. Also history of collapsed left lower lobe which seems to be improved, and mucous plug removed 04/09/2017 - Additional bronchoscopy 04/09/2017 removed approximately 60 mL of dense mucous - Continue mechanical ventilation. - Continue chest physiotherapy when necessary -We will attempt to wean off propofol and begin Precedex #. Pneumonia, not present on admission, improving. -Bronchial washing showed staph aureus, resistant to erythromycin. The patient also has had evidence of left lower lobe collapse likely from secretions. -Discontinued Zosyn, switched to nafcillin - also discontinued -Pro calcitonin continues to trend up though in the setting of liver metastasis unreliable -WBC trending down -ID following, recommendations appreciated -Ertapenem started 04/10/2017 -Bronchoscopy as above -Continue to monitor #. Sepsis secondary to HCAP. Acute and improving. -CT angio showed bilateral pleural effusions, worsening bibasilar pneumonia pattern, greater on the left than the right. Worsening leukocytosis, procalcitonin, intermittent fevers. -Infectious disease following -Antibiotics as above -Monitor procalcitonin, CBC. -No vasopressor requirements #. Anasarca, new and active. The patient has significant volume overload from resuscitation. We will continue to monitor and diuresis as able. -1.5 L peritoneal fluid taken off yesterday -Urinary output remains adequate -Consider repeat paracentesis -Continue to monitor #. Acute iron deficiency anemia. Stable. - Secondary to hemodilution from aggressive fluid resuscitation. Possibly secondary to GI bleed from malignant gastric ulcers, but no sign of acute bleed at this time. Hb has been stable, so will switch from PPI drip to BID. - PRBCs on hold. Transfuse for HB <8. - Check H&H daily - Protonix 40 mg IV BID - Monitor for signs of acute bleeding #. Bilateral popliteal DVT, POA and active. - Pt diagnosed with bilateral large DVTs 3 weeks ago, placed on Lovenox at home with possible missed doses - Currently therapeutic on Argatroban #. Metastatic liver cancer due to poorly differentiated adenocarcinoma. - Diagnosed 6 weeks ago. Biopsy of liver mets revealed poorly differentiated adenocarcinoma. Likely secondary to gastric carcinoma vs pancreatobiliary carcinoma. Possibly related to family history of Peutz-Jeghers syndrome, although less likely given pathology, per Dr. Suazo. - Dr. Suazo of Oncology is following. We appreciate his input. -Considering initiation of chemotherapy #. Hyperbilirubinemia, new and active. - Bilirubin and Alkaline phos trending up; scleral icterus on exam; likely secondary to hepatic metastases. - Abdominal U/S today showed growing mass lesions throughout the liver parenchyma. - Will check abdominal and pelvis CT in the morning to rule out pancreatobiliary carcinoma and check the progression of his cancer. #. Constipation. Present on admission Ongoing -Refractory to all multiple enemas including enema with with FMS -Refractory to suppository -Continue aggressive bowel regimen #. Malnutrition. Ongoing -Nutrition following, TPN started with concentrated formula Dangerous meds include fentanyl drip and propofol. Disposition: Remains intubated sedated ICU status Patient is on PPO BID for GI prophylaxis. He is on Argatroban ggt for PE, which is therapeutic. GI Prophylaxis: Proton Pump Inhibitor VTE Prophylaxis: Other (Argatroban ggt) Resuscitation Status: CPR: Attempt Resuscitation Time spent 30 minutes Attending Statement Patient has been seen and examined by myself with medical director occupational health and agree with above history, physical, assessment and plan. BRICE BROWN DO Apr 11, 2017 16:01 Anna Marino MD Apr 11, 2017 17:36
[2017-04-11 16:34] LABS: APPEARANCE,URINE CLOUDY (CLEAR,HAZY); COLOR,URINE DARK YELLOW (YELLOW); OCCULT BLOOD,URINE TRACE (NEGATIVE)
--- NOTE | 2017-04-11 16:37 | PCM.PNMED ---
Subjective Date of Service Apr 11, 2017 Subjective 27 yo man with recent diagnosis of gastric adeno CA admitted with massive PE and respiratory failure. Has had trial of EKOS 04/03 but repeat CTPA 04/05showed no resolution of his bilat PE's. Overnight required increase in sedation to maintain vent synchrony. His FiO2 has been weaned to 0.4 from 0.6. Had repeat CTPA and CT of Abd/Pelvis today which was personally reviewed and showed NO resolution of extensive thrombus in both main Pulmonary arteries and nearly all branches, especially those in the RLL and RML. In addition there appears to be progressive disease in his liver with near total replacement of the left lobe with masses. I spoke at length with Curtis's mother, sister, and father about the results of today's CT's and the events of the last 24 hours. We discussed possible options for going forward and I essentially presented 3 different paths. First, I offered that we could continue fully aggressive support, as we are currently, with the expectation that he will eventually of his rapidly growing tumor, possibly within days or a couple weeks. The next option centers on administration of chemotherapy directed at his disseminated tumor along with a jermaine description of the multiple catastrophic complications that could occur as a result and, for which, we would have no effective treatment. These include gastric rupture, hepatic failure, severe GI hemorrhage, tumor lysis, renal failure, ARDS, sepsis, etc. Finally, we discussed withdrawal of Curtis's ventilator and shifting focus to comfort care with the expectation that he would within hours to a few days. I've spoken with Curtis's oncologist, Dr. Suazo, who has offered to meet with me and the family later today to give them a full understanding of the choices and likely outcomes. Palliative Care has kindly agreed to take part in the discussion as well. I also offered to seek transfer of Curtis to a tertiary center such as if the family wishes to explore that however I told them that I doubted that could offer any additional options that might alter the final outcome. Exam Vital Signs Vital Sign - Last Date Time Temp Pulse Resp B/P Pulse Ox O2 Delivery O2 Flow Rate FiO2 04/11/17 10:52 125 136/81 93 40 04/11/17 08:21 Ventilator 04/11/17 08:21 37.3 16 Intake and Output 04/10/17 04/10/17 04/11/17 Cumulative From/Thru 15:00 23:00 07:00 04/03/17 07:34 - 04/11/17 06:24 Intake Total 2228 ml 2055 ml 11144 ml Output Total 570 ml 775 ml 32967 ml Balance 1658 ml 1280 ml 60682 ml Intake Oral 0 ml IV Total 1079 ml 838 ml 67470 ml Tube Feeding 1407 ml TPN/PPN 1149 ml 1217 ml 2366 ml Packed Cells 351 ml Tube Irrigant 480 ml Output Urine Total 570 ml 675 ml 9220 ml Gastric Drainage Total 100 ml 825 ml # Bowel Movements 0 0 Exam Pale, chronically ill cachectic young man orally intubated, appear comfortable on vent Lungs Decreased BS, scattered crackles, NO wheezes CV RRR, soft S1S2, no gallop/rub, II/ early systolic murmur LUSB Abd Firm, distended, NO BTs Ext Warm, 2-3+ edema arms and legs Neuro grimaces to light touch on chest wall and abdomen. follows no commands on sedation Lab and Diagnostics Result Diagram: 04/11/17 0335 04/11/17 0335 X-Rays, CTs and MRIs CT ANGIO CHEST PULMONARY EMBOLISM 1. Slight decrease in severe pulmonary embolic disease with resolution of the previously seen saddle embolus spanning the main pulmonary artery bifurcation. However, significant embolic burden remains bilaterally. 2. Improved aeration of the left lower lobe. Decreased right lower lobe pneumonia. 3. Moderate ascites and severe hepatic metastatic disease. 4. Healing left rib fractures. 5. Gastroesophageal reflux. Dictated by: Landon Noel M.D. on 04/11/2017 at 10:12 CT ABDOMEN AND PELVIS WITH CONTRAST 1. Interval increased amount of large abdominal and pelvic ascites, presumably from peritoneal carcinomatosis. 2. Numerous variably sized hepatic metastases again noted, most confluent in the left hepatic lobe. 3. 6.4 x 5.5 x 3.5 cm left pelvic cystic lesion appears to arise from the left seminal vesicle. 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 4. Small bibasilar mobile pleural effusions, with associated compressive atelectasis. Dictated by: Moisés Brasher M.D. on 04/11/2017 at 10:32 Chest x-ray Stable pulmonary venous engorgement and support devices. Dictated by: New Powers M.D. on 04/03/2017 at 11:01 CT angiogram 1. Multiple, bilateral large pulmonary emboli. 2. Flattening of the cardiac interventricular septum suggesting right heart strain. 3. Hepatic metastatic disease. 4. Findings telephoned to Dr. Nathan Paz on 04/03/17 at 0817 hrs. Dictated by: Louisa Jones MD, PhD on 04/03/2017 at 8:13 Chest x-ray 1. Endotracheal tube and nasogastric tube positioned as described. 2. Mild cardiomegaly and moderate vascular congestion. Dictated by: Tristin Mckenzie M.D. on 04/03/2017 at 9:55 Chest x-ray 1. Endotracheal tube is positioned at the thoracic inlet. 2. Mild cardiomegaly and vascular congestion is similar to the prior study. Dictated by: Tristin Mckenzie M.D. on 04/03/2017 at 10:03 US ABDOMEN IMPRESSION: 4 quadrant mild ascites noted, growing mass lesions throughout the liver parenchyma. Nonvisualization of the left kidney due to overlying bowel gas and inability of the patient to fully cooperate with positioning and breath holding. Dictated by: Donnei Harrington M.D. on 04/10/2017 Additional Diagnostics PROCEDURE: US ABDOMEN FINDINGS: Liver: Liver is enlarged in size and heterogeneous in echotexture with multiple hepatic mass lesions previously identified again seen, having enlarged in size from the comparison ultrasound 03/07/17 and the largest measures up to 5.5 x 5.0 x 4.3 cm. Gallbladder: The gallbladder watts just above the upper limits of normal at 3.1 mm, and appears to contain sludge. A small amount of adjacent free fluid can be seen. Biliary ducts: Intrahepatic bile ducts are non-dilated. Extrahepatic bile duct caliber measures 3.5 mm. Normal is 6-7 mm or less in diameter, or 10 mm or less post-cholecystectomy. Pancreas: Visualized portions of the pancreas are sonographically normal. Spleen: Spleen is normal in size and homogeneous in echotexture. Kidneys: The right kidney is normal in size and echotexture. Right kidney measures 16.3 cm long; left kidney could not be seen. No solid masses. Aorta: Visualized aorta is normal in caliber at less than 3 cm. Iliacs: Proximal common iliac arteries are normal in caliber at less than 2.5 cm. IVC: Intrahepatic inferior vena cava is patent. Miscellaneous: There is mild for quadrant abdominal free fluid. IMPRESSION: 4 quadrant mild ascites noted, growing mass lesions throughout the liver parenchyma. Nonvisualization of the left kidney due to overlying bowel gas and inability of the patient to fully cooperate with positioning and breath holding. Dictated by: Donnie Harrington M.D. 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 IMP Resp failure Multifactorial with massive PE, LLL PNA and marked abdominal distension all contributing. There has been NO radiographic resolution of his extensive bilateral PE's despite EKOS and systemic anticoagulation with heparin and argatroban now. His tense ascites has rapidly reaccumulated and while his FiO2 has been decreased over night I doubt he would survive more than a few hours once extubated as he is so weak, septic, hypoxemic and would require large doses of opiates and probably benzodiazepines to maintain comfort. Day #2 empiric ertapenem for LLL PNA PE Bilat Massive PE. Had RV pressure overload on echo but no improvement after EKOS and anticoagulation on followup CTs. Possible this is not all thrombosis but instead some degree of tumor emboli given extent of hepatic involvement. He is undoubtably thrombophilic due to his advance gastric cancer. Systemic thrombolysis not an option given his history of Gastric tumor and recent GI bleeds requiring transfusion. An attempt at catheter directed therapy with EKOS has failed and surgical thrombectomy is not a consideration given his primary diagnosis and exceeding grim prognosis based on that. Gastric CA Oncology is waiting for HER 2 status in order to determine whether Herceptin would be an option along with FOLFOX. Treatment would be largely palliative and fraught with multiple potential catastrophic complications. Ascites A reflection of his elevated RV pressure and hypoalbuminemia along with his hepatic tumor involvement. We performed a diagnostic/therapeutic paracentesis of 1600 ml today but may need to repeat as a palliative measure before vent liberation if his family decides to take that course REC Multidisciplinary meeting with Oncology and Palliative Care to define goals of care Abx per ID Repeat therapeutic large volume paracentesis prior to vent liberation if family decides on this course Continuous sedation with fentanyl, precedex and propofol TPN GI prophylaxis Pain Evaluation: Adequate Pain Control GI Prophylaxis: Proton Pump Inhibitor VTE Prophylaxis: Other (Argatroban ggt) Resuscitation Status: CPR: Attempt Resuscitation Time spent 80 minutes critical care was spent in direct patient care and meeting with surrogate decision makers an other involved physicians exclusive of shared time and procedures Dony Vega MD Apr 11, 2017 16:37 - Will wean off propofol and begin Precedex today 04/11/2017. #. Hyperbilirubinemia, new and active. - Bilirubin and Alkaline phos trending up; scleral icterus on exam; likely secondary to hepatic metastases. - Abdominal U/S today showed growing mass lesions throughout the liver parenchyma. - Will check abdominal and pelvis CT in the morning to rule out pancreatobiliary carcinoma and check the progression of his cancer. #. Metastatic liver cancer due to poorly differentiated adenocarcinoma. - CT abd/pelvis today reveals numerous variably sized hepatic metastases, most confluent in the left hepatic lobe. - Given the rapid progression of his adenocarcinoma, it is reasonable to proceed with chemotherapy if his family choose to go that route. However, we discussed the risk of chemo with the family, includin) bleeding into liver or gut due to tumor necrosis while anticoagulated, 2) severe sepsis in the face of underlying partially treated bacterial infection, 3) tumor lysis syndrome. - Discussed the timing of his chemo, probably FOLFOX, with Dr. Suazo. In addition to FOLFOX, we will soon get the results of other markers including HER- 2 to determine whether or not the patient could benefit from additional therapy. - Plan to have another family conference sometime this evening or tomorrow morning with Dr. Suazo. Other medical issues will be managed by the primary care team: #. Constipation. #. Malnutrition. #. Gastric adenocarcinoma with liver metastases status post liver biopsies on March 23. #. Anasarca, new and active. #. Acute iron deficiency anemia. #. Bilateral popliteal DVT, POA and active. Patient is on PPO BID for GI prophylaxis. He is on Argatroban ggt for PE, which is therapeutic. GI Prophylaxis: Proton Pump Inhibitor VTE Prophylaxis: Other (Argatroban ggt) Resuscitation Status: CPR: Attempt Resuscitation Dony Vega MD Apr 11, 2017 16:37
--- NOTE | 2017-04-11 17:22 | NUR ---
P: Resp, Hemodynamics, Neuro, Social I,E: Pt remains on the vent, sats are improved this afternoon and are sitting 96-97% on 50%. Secretions have decreased. Pt has been mostly tachycardic today in the 100's to 110's. BP 100's to 120's sys. UOP adequate, but dark akin in color. Pt was quite restless this morning and precedex was added. I have titrated this up to .7mcg and it has helped, but he continues to require propofol as well. I have titrated this down to 45mcg but since doing this he has been a little more restless. Family have also indicated they want comfort to be a priority. Family are very supportive and remain in the room with the pt and are great advocates for the pt.
[2017-04-11] MEDS: Total Parenteral Nutrition 1 BAG IV SCH (20:32)
[2017-04-12] VITALS (13 sets, daily range): BP systolic 90–126; BP diastolic 43–74; PULSE 80–107; RESP 15–21; O2SAT 92–98
[2017-04-12] MEDS: Propofol Inj 1,000,000 MCG in IV Premix 1 EACH IV PRN ×6 (00:17→20:54)
[2017-04-12] MEDS: Dexmedetomidine 400 mCg/100 mL 400 MCG in IV Premix 1 EACH IV PRN ×5 (00:17→23:53)
[2017-04-12] MEDS: Chlorhexidine 0.12% 15 mL Oral Solution MT SCH ×7 (00:17→23:54)
--- NOTE | 2017-04-12 04:56 | ABG ---
DateTimeAnalyzed 04:47:00 -_ pH ____7.339 - 7.350 7.450 pCO2 ___37.0__ -mmHg 35.0 45.0 pO2 ___61.8__ -mmHg 69.0 116 HCO3- ___19.4__ -mmol/L 22.0 26.0 ABE ___-5.3__ -mmol/L -2.0 2.0 tHb ___10.0__ -g/dL 12.0 18.0 O2Hb ___88.6__ -% COHb ____1.0__ -% 0.0 1.5 MetHb ____1.1__ -% 0.4 1.5 sO2 ___90.5__ -% 25.0 FIO2 ___60.0__ -% PEEP ___10.0__ -cmH2O Set_RR ___12.0__ -b/min Vt __816.0__ -L Drawn By TLA - Oxygen Device 2 PRESSURE CONTROL -____ Date/Time Notified____ 04:56:00 -_ Spontaneous_RR ___23.0__ -b/min Notified Whom _Karla-RN - B 758 -mmHg tO2 ___12.5__ -Vol% Yaakov test N/A -
[2017-04-12 04:59] LABS: Mean Corpuscular Hemoglobin 22.9 pg (27.0-35.0); Mean Corpuscular Volume 71.2 fL (81-100); Platelet Count 393 bil/L (150-400)
[2017-04-12 05:14] LABS: BASOPHILS % (AUTO) 0 % (0-3); EOSINOPHILS % (AUTO) 0 % (0-5); MONOCYTES % (AUTO) 8 % (4-12); NEUTROPHILS % (AUTO) 89 % (40-74)
[2017-04-12 05:34] LABS: Magnesium 2.6 mg/dL (1.6-2.6); Phosphorus 3.6 mg/dL (2.5-4.9)
[2017-04-12] MEDS: fentaNYL 2,500 mCg/250 mL 2,500 MCG in IV Premix 1 EACH IV SCH ×3 (05:56→21:58)
--- NOTE | 2017-04-12 06:13 | NUR ---
Sedation Precedex remains on at 0.7 mcg/kg/hr, Fentanyl slowly titrated up to 275 mcg/hr after patient nods 'yes' to pain on multiple occasions. Patient denies pain with Fentanyl at this level. Propofol down to 40mcgs/kg/min. Attempted to wean this lower but patient becomes restless and anxious. RASS between -1 and -2 overnight. HR 80-110. BP stable. Patient pulls up against restraints, moves legs, follows simple commands, and seems to be nodding 'yes' appropriately to questions.
[2017-04-12] MEDS ORDERED: TPN Per Pharmacist XX ONE (07:15)
[2017-04-12] MEDS: Insulin LISPRO 300 Unit/3 mL Inj SUBQ SCH ×4 (08:00→20:51)
[2017-04-12] MEDS: Pantoprazole 4 mg/mL 10 mL Inj IVPUSH SCH ×2 (08:08→15:33)
[2017-04-12] MEDS: [UNRECOGNIZED DRUG - REMARK] XX SCH (08:13)
--- NOTE | 2017-04-12 08:30 | PROG NOTE ---
[address] [address] PROGRESS NOTE PATIENT: DREA PELAYO : 1990 MR#: [id number] ADMIT: 04/03/2017 JOB ID: [id number] DATE: 04/12/2017 REASON FOR FOLLOWUP: Metastatic gastric adenocarcinoma with extensive liver mets, and peritoneal carcinomatosis complicated by ventilatory dependent failure respiratory failure secondary to multiple pulmonary emboli. INTERVAL HISTORY: Overnight, the patient has remained critically ill, intubated in the ICU. He remained sedated, though is slightly more awake today and can follow some commands apparently, though when we examined the patient he was not fully interactive. The case was discussed at the bedside with the ICU nursing team as well as with the patient's parents. The patient's FiO2 had to be increased overnight from 40% to 60%. He remains on 10 of PEEP, but he is not receiving any vasopressors and has adequate urine output. Recall that about 48 hours ago there was a paracentesis, which yielded 1.5 L of exudative peritoneal fluid. Overnight, the patient has continued to have minimal to moderate amounts of respiratory secretions. PHYSICAL EXAMINATION: Reveals a gentleman who is groggy and opens his eyes intermittently, but does not seem completely communicative. He has been afebrile for 36 hours. His last temperature 38.2 late on April 10. His current temp 36.3, pulse 110 sinus, blood pressure 126/74 without vasopressor agents. He is on 60% and 10 of PEEP and saturating well. His eyes without conjunctivitis. Oral endotracheal tube and oral gastric tube in good position. No herpetic lesions around the mouth. No obvious mucosal lesions. His lungs are notable for dramatically decreased breath sounds at both bases with scattered rales and rhonchi throughout the lung irwin. Cardiac tones regular rate and rhythm tachycardic without overt murmur. Abdomen extremely distended firm and apparently nontender. One cannot appreciate any possible organomegaly. Lowery catheter is present draining clear yellow urine. He has progressive edema of the lower extremities approaching 4+ below the knees bilaterally at this point. No skin rash noted. The patient does have a right radial A line, left upper extremity PICC and a peripheral IV. All of which appear uninfected at this point. LABORATORIES: Include a white count which is stable at 20,000 with left shift. Creatinine is stable at 1.04 LFTs continue to slowly rise in a cholestatic pattern. Alk phos 471, AST 132, albumin 2.5 procalcitonin was done yesterday and was 16 which I think is uninterpretable in view of these extensive liver mets, and I do not see reason to continue ordering. The peritoneal fluid had 343 white cells, very high LDH 938, and a low SAAG. Cultures include two bronch washes which have grown Staph aureus, this is MSSA. These bronchs were on the and the . Respiratory viral PCR panel on the bronch wash was negative. Other cultures including blood cultures have been negative. The peritoneal fluid is culture negative. In terms of path report, I do not yet see a path available from the peritoneal fluid. IMAGING: Includes an abdominal CT done yesterday, which shows increased abdominal and pelvic ascites and the extensive crop of hepatic metastases, which we have known about previously. In addition it is thought to be a large seminal vessel vesicle which was noted on this film. In terms of the chest CT which was done yesterday it is noted that there has been a slight decrease in the severe pulmonary embolic disease as well as improved aeration of the left lower lobe and decreased right-sided infiltrate whether that right-sided infiltrate represents atelectasis or pneumonia cannot be discerned on these films. IMPRESSION: As was my opinion yesterday, I think that the patient is either uninfected or has an infection which is under reasonable control. He does not in any way appear septic at this time as he is afebrile with a reasonable blood pressure without any vasopressor support, and he has relatively minimal respiratory secretions. He is clearly colonized in his airway with methicillin sensitive Staphylococcus aureus and there may be some degree of methicillin sensitive Staphylococcus aureus tracheal bronchitis, but I do not think he has an methicillin sensitive Staphylococcus aureus pneumonia at this time. His white blood count and procalcitonin are unreliable markers of infection given his tremendous tumor burden, critical illness, and liver metastasis. Overall, the patient is clearly dying as a result of progressive and metastatic disease complicated by pulmonary emboli and ventilatory dependent respiratory failure. While I am not sanguine about his chances even if he were given chemotherapy, it is clear that without chemotherapy that his survival will be extremely limited, and I can see no plausible path to survival without chemotherapeutic agents. That said, I agree with Dr. Vega that giving chemotherapy in this situation could precipitate a devastating series of complications which might lead to an even more rapid demise than lack of treatment. RECOMMENDATIONS: 1. Will continue with ertapenem as a single drug for MSSA. 2. I see no Infectious Disease reason to withhold chemotherapy. 3. I agree with the plans for a family meeting at noon with the jermaine discussion of the risks and benefits of chemotherapy versus continued supportive care or even conceivably withdrawal of care if there are no plans to administer chemotherapy as it would seem to be a hopeless case without chemotherapy . MTDD
[2017-04-12] MEDS: Ertapenem Inj 1,000 MG in 0.9% Sodium Chloride 50 ML IV SCH (08:49)
[2017-04-12] MEDS: Polyethylene Glycol (PEG) 17 Gm Powder PO SCH ×2 (09:05→20:54)
[2017-04-12] MEDS ORDERED: Albumin 25% 50 GM in IV Premix 1 EACH IV ONE (10:35)
[2017-04-12] MEDS ORDERED: Dextrose 5% 0.9% NaCl 1,000 ML IV SCH (10:35)
--- NOTE | 2017-04-12 10:43 | PCM.PNMED ---
Subjective Date of Service Apr 12, 2017 Subjective ICU NOTE: Curtis Malloy is a 27 yo man with recent diagnosis of gastric adenocarcinoma with hepatic metastases who presented to the hospital with saddle pulmonary embolism and acute respiratory failure. He was treated with EKOS catheter directed thrombolytic therapy x 3 with no change in massive clot burden on repeat CTs. Heparin gtt was ineffective and was switched to Argatroban ggt. CT abdomen/pelvis on 04/11/2017 showed progression of the liver tumors. Overnight, unable to wean down FiO2, which has remained at 60%. No fever for 36 hours. Otherwise, he has been hemodynamically stable without any episodes of hypotension. Patient nods "yes" to pain and thus Fentanyl was tirated up to 275mcg/hr. Precedex remains on at 0.7 mcg/kg/hr, Propofol down to 40mcgs/kg/ min. Patient is able to follow simple commands and seems to be nodding 'yes' appropriately to questions. Today, patient appears more responsive to questions and commands. His ascites worsens and his intra-abdominal pressure increases up to 25. Plan for family conference at noon today to discuss goal of care and code status. Exam Vital Signs Vital Sign - Last Date Time Temp Pulse Resp B/P Pulse Ox O2 Delivery O2 Flow Rate FiO2 04/12/17 08:58 92 106/52 92 60 04/12/17 08:00 Ventilator 04/12/17 07:39 36.7 19 Intake and Output 04/11/17 04/11/17 04/12/17 Cumulative From/Thru 15:00 23:00 07:00 04/03/17 07:34 - 04/12/17 06:02 Intake Total 1499 ml 2137 ml 12091 ml Output Total 610 ml 550 ml 80129 ml Balance 889 ml 1587 ml 85208 ml Intake Oral 0 ml IV Total 861 ml 952 ml 15420 ml Tube Feeding 1407 ml TPN/PPN 638 ml 1185 ml 4189 ml Packed Cells 351 ml Tube Irrigant 480 ml Output Urine Total 600 ml 450 ml 82690 ml Gastric Drainage Total 10 ml 100 ml 935 ml # Bowel Movements 0 Exam Gen: Intubated and sedated young man, pale, cachetic, opens his eyes intermittently and nods his head appropriate to yes/no questions. HEENT: Oral endotracheal tube and oral gastric tube in place and appear patent. Cardio: Regular rhythm, tachycardia with no murmurs rubs or gallops. Resp: diminished in bilateral lower lung irwin with rales. Abdomen: distended and rigid to palpation, abdominal wall somewhat edematous, fluid wave noted, hypoactive bowel sound, appears nontender to palpation. Extremities: Warm to the touch, moderate pitting edema in the bilateral lower extremities up to mid tibia. Skin: pale, dry and intact. No skin rash noted. Neuro: CN difficult to assess in this intubated and sedated patient. IVs and Medications Medications Reviewed: Medications were reviewed in detail Medications High risk medications include Fentanyl, Propofol, and Precedex. Lab and Diagnostics Result Diagram: 04/12/1744404/12/17 044 X-Rays, CTs and MRIs CT ANGIO CHEST PULMONARY EMBOLISM 1. Slight decrease in severe pulmonary embolic disease with resolution of the previously seen saddle embolus spanning the main pulmonary artery bifurcation. However, significant embolic burden remains bilaterally. 2. Improved aeration of the left lower lobe. Decreased right lower lobe pneumonia. 3. Moderate ascites and severe hepatic metastatic disease. 4. Healing left rib fractures. 5. Gastroesophageal reflux. Dictated by: Landon Noel M.D. on 04/11/2017 at 10:12 CT ABDOMEN AND PELVIS WITH CONTRAST 1. Interval increased amount of large abdominal and pelvic ascites, presumably from peritoneal carcinomatosis. 2. Numerous variably sized hepatic metastases again noted, most confluent in the left hepatic lobe. 3. 6.4 x 5.5 x 3.5 cm left pelvic cystic lesion appears to arise from the left seminal vesicle. 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 4. Small bibasilar mobile pleural effusions, with associated compressive atelectasis. Dictated by: Moisés Brasher M.D. on 04/11/2017 at 10:32 Chest x-ray Stable pulmonary venous engorgement and support devices. Dictated by: New Powers M.D. on 04/03/2017 at 11:01 CT angiogram 1. Multiple, bilateral large pulmonary emboli. 2. Flattening of the cardiac interventricular septum suggesting right heart strain. 3. Hepatic metastatic disease. 4. Findings telephoned to Dr. Nathan Paz on 04/03/17 at 0817 hrs. Dictated by: Louisa Jones MD, PhD on 04/03/2017 at 8:13 Chest x-ray 1. Endotracheal tube and nasogastric tube positioned as described. 2. Mild cardiomegaly and moderate vascular congestion. Dictated by: Tristin Mckenzie M.D. on 04/03/2017 at 9:55 Chest x-ray 1. Endotracheal tube is positioned at the thoracic inlet. 2. Mild cardiomegaly and vascular congestion is similar to the prior study. Dictated by: Tristin Mckenzie M.D. on 04/03/2017 at 10:03 US ABDOMEN IMPRESSION: 4 quadrant mild ascites noted, growing mass lesions throughout the liver parenchyma. Nonvisualization of the left kidney due to overlying bowel gas and inability of the patient to fully cooperate with positioning and breath holding. Dictated by: Donnie Harrington M.D. on 04/10/2017 CT ANGIO CHEST PULMONARY EMBOLISM IMPRESSION: 1. Slight decrease in severe pulmonary embolic disease with resolution of the previously seen saddle embolus spanning the main pulmonary artery bifurcation. However, significant embolic burden remains bilaterally. 2. Improved aeration of the left lower lobe. Decreased right lower lobe pneumonia. 3. Moderate ascites and severe hepatic metastatic disease. 4. Healing left rib fractures. 5. Gastroesophageal reflux. Dictated by: Landon Noel M.D. on 04/11/2017 CT ABDOMEN AND PELVIS WITH CONTRAST IMPRESSION: 1. Interval increased amount of large abdominal and pelvic ascites, presumably from peritoneal carcinomatosis. 2. Numerous variably sized hepatic metastases again noted, most confluent in the left hepatic lobe. 3. 6.4 x 5.5 x 3.5 cm left pelvic cystic lesion appears to arise from the left seminal vesicle. 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 4. Small bibasilar mobile pleural effusions, with associated compressive atelectasis. Dictated by: Moisés Brasher M.D. on 04/11/2017 Additional Diagnostics PROCEDURE: US ABDOMEN FINDINGS: Liver: Liver is enlarged in size and heterogeneous in echotexture with multiple hepatic mass lesions previously identified again seen, having enlarged in size from the comparison ultrasound 03/07/17 and the largest measures up to 5.5 x 5.0 x 4.3 cm. Gallbladder: The gallbladder watts just above the upper limits of normal at 3.1 mm, and appears to contain sludge. A small amount of adjacent free fluid can be seen. Biliary ducts: Intrahepatic bile ducts are non-dilated. Extrahepatic bile duct caliber measures 3.5 mm. Normal is 6-7 mm or less in diameter, or 10 mm or less post-cholecystectomy. Pancreas: Visualized portions of the pancreas are sonographically normal. Spleen: Spleen is normal in size and homogeneous in echotexture. Kidneys: The right kidney is normal in size and echotexture. Right kidney measures 16.3 cm long; left kidney could not be seen. No solid masses. Aorta: Visualized aorta is normal in caliber at less than 3 cm. Iliacs: Proximal common iliac arteries are normal in caliber at less than 2.5 cm. IVC: Intrahepatic inferior vena cava is patent. Miscellaneous: There is mild for quadrant abdominal free fluid. IMPRESSION: 4 quadrant mild ascites noted, growing mass lesions throughout the liver parenchyma. Nonvisualization of the left kidney due to overlying bowel gas and inability of the patient to fully cooperate with positioning and breath holding. Dictated by: Donnie Harrington M.D. 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 Hospital Day 10. #. Acute Hypoxemic respiratory failure, on mechanical ventilation since April 03. - Likely is multifactorial with the pneumonia, pulmonary embolism, and mucous plugging. S/p bronchoscopy x2. - Currently on pressure control ventilation. Unable to successfully decreased FiO2 for prolonged periods, which may be due to evolving V/Q mismatch with lysis of the pulmonary emboli and movement of clot into smaller vessels. - Will continue with the current vent setting. Patient will likely not survive once extubated given his critically ill condition and would require large doses of opioids to maintain comfort. Will follow up with family for the final decision to continue full aggressive support vs. comfort care route. - Will continue with Precedex and gradually wean off propofol. #. Sepsis due to left lower lobe MSSA pneumonia, new and improved. - Appears to be methicillin-sensitive Staphylococcus aureus, confirmed by bronchoscopy and lavage on 04/06. The bronch wash from the also grows Staph aureus, pending susceptibilities. - WBC trending down and no fever for over 36 hours. - Appreciate Dr. Goldberg's input. Per ID, patient is clearly colonized in his airway with methicillin sensitive Staphylococcus aureus and there may be some degree of MSSA tracheal bronchitis, but not MSSA pneumonia at this time - Per Dr. Goldberg's recommendations, will continue with empirical antibiotic with Ertapenem, which has good activity against MSSA and provides some broader spectrum coverage for aspiration type pneumonia. Day 3 on Ertapenem. - No other apparent source of infection. The first ascitic fluid analysis showed 343 white cells in the peritoneal fluid, 50% were polys, so this does not meet the standard criteria for bacterial peritonitis. Culture shows no growth so far. - UA on 04/11/17 was negative for infection. #. Acute bilateral massive pulmonary embolism with obstructive shock, POA, active. - RV pressure overload on echo but no radiographic resolution of his extensive bilateral PE's despite EKOS and systemic anticoagulation with heparin and now argatroba. - Possible this is not all thrombosis but might have some degree of tumor emboli given extent of hepatic involvement. - Systemic thrombolysis not an option given his history of Gastric tumor and recent GI bleeds requiring transfusion. Surgical thrombectomy is also not a consideration given his grim primary diagnosis. - Continue with Argatroban drip and monitor PTT level. #. Abdominal ascites, new and active. - Likely a reflection of his elevated RV pressure and hypoalbuminemia along with his tumor involvement. - First paracentesis removed 1600ml on 04/10/17. Given his rapidly raising intra- abdominal pressure, a second paracentesis was performed this morning and removed over 6500ml. Patient tolerated both procedures well. - Albumin replacement given today due large volume paracentesis. Continue to monitor BP. - Studies of the ascitic fluid from the first paracentesis on 04/10/17 showed that the SAAG is 0.8, consistent with an exudative type ascites. #. Hyperbilirubinemia, new and active. - Bilirubin and Alkaline phos are elevated but stable; likely secondary to hepatic metastases. - Abdominal U/S and abdominal/pelvis CT showed growing mass lesions throughout the liver parenchyma. #. Metastatic liver cancer due to poorly differentiated adenocarcinoma. - CT abd/pelvis on 04/11/17 revealed numerous variably sized hepatic metastases, most confluent in the left hepatic lobe. - Given the rapid progression of his adenocarcinoma, it is reasonable to proceed with chemotherapy if his family chooses to go that route. However, we discussed the risk of chemo with the family, include but not limited to: 1) bleeding into liver or gut due to tumor necrosis while anticoagulated, 2) severe sepsis in the face of underlying partially treated bacterial infection, 3 ) tumor lysis syndrome, 4) Perforated bowel/stomach - Oncology is waiting for HER 2 status in order to determine whether Herceptin would be an option along with FOLFOX. Treatment would be largely palliative and fraught with multiple potential catastrophic complications. - Multidisciplinary meeting with Oncology and Palliative Care to define goals of care and code status. Other medical issues will be managed by the primary care team: #. Constipation. #. Malnutrition. #. Anasarca, new and active. #. Acute iron deficiency anemia. #. Bilateral popliteal DVT, POA and active. Patient is on PPO BID for GI prophylaxis. He is on Argatroban ggt for PE, which is therapeutic. Pain Evaluation: Adequate Pain Control GI Prophylaxis: Proton Pump Inhibitor VTE Prophylaxis: Other (Argatroban ggt) Resuscitation Status: CPR: Attempt Resuscitation Mary Bourgeois DO Apr 12, 2017 10:43 #. Bilateral popliteal DVT, POA and active. Patient is on PPO BID for GI prophylaxis. He is on Argatroban ggt for PE, which is therapeutic. PE Bilat Massive PE. Had RV pressure overload on echo but no improvement after EKOS and anticoagulation on followup CTs. Possible this is not all thrombosis but instead some degree of tumor emboli given extent of hepatic involvement. He is undoubtably thrombophilic due to his advance gastric cancer. Systemic thrombolysis not an option given his history of Gastric tumor and recent GI bleeds requiring transfusion. An attempt at catheter directed therapy with EKOS has failed and surgical thrombectomy is not a consideration given his primary diagnosis and exceeding grim prognosis based on that. Gastric CA Oncology is waiting for HER 2 status in order to determine whether Herceptin would be an option along with FOLFOX. Treatment would be largely palliative and fraught with multiple potential catastrophic complications. Ascites A reflection of his elevated RV pressure and hypoalbuminemia along with his hepatic tumor involvement. We performed a diagnostic/therapeutic paracentesis of 1600 ml today but may need to repeat as a palliative measure before vent liberation if his family decides to take that course REC Multidisciplinary meeting with Oncology and Palliative Care to define goals of care Abx per ID Repeat therapeutic large volume paracentesis prior to vent liberation if family decides on this course Continuous sedation with fentanyl, precedex and propofol TPN GI prophylaxis Pain Evaluation: Adequate Pain Control GI Prophylaxis: Proton Pump Inhibitor VTE Prophylaxis: Other (Argatroban ggt) Resuscitation Status: CPR: Attempt Resuscitation Mary Bourgeois DO Apr 12, 2017 10:43
--- NOTE | 2017-04-12 11:54 | PCM.PHAPRO ---
Progress TPN PARENTERAL NUTRITION ORDERS 4 12-Apr-17 Standard Hang Time: 2100 Substrates Total kcal: 1600 AMINO ACIDS 120 g DEXTROSE 300 g Total Volume (mL): 1600 LIPIDS 10 g Sterile Water for Injection mL To Infuse Over (hrs): 24 Total Volume 1600 mL At at a rate of (mL/hr): 67 Additives Sodium Chloride 80 mEq "typical" daily requirements Sodium Acetate 40 mEq Sodium 50-120mEq Potassium Chloride 50 mEq Potassium 60-120mEq Potassium Phosphate 40 mEq Phosphate 20-40mEq Calcium Gluconate 9.3 mEq Magnesium 8-32mEq Magnesium Sulfate 12 mEq Calcium 9-22mEq Acetate* 80-120mEq Chloride* 80-120mEq Regular Insulin units *Depending on acid-base status Famotidine mg Multivitamins 1 std dose Insulin Regimen Trace Elements 1 std dose none Thiamine mg Regular Low Intensity Subcut Folic Acid mg Regular Medium Intensity Subcut Ascorbic Acid mg Regular High Intensity Subcut Regular Insulin Infusion Other: Special Instructions: To be infused via central line only. For delay or interruption of TPN contact the pharmacist for alternative replacement solution. Signature Date: DREA PELAYO [address] [facility] Per nursing: TPN rate was not updated and was running on a faster rate than ordered. TPN will run out midday and D10 will be initiated to cover until this evening's bag is started. D10 should be stopped once TPN is restarted. -Danilo Briones, PharmD Danilo Briones Apr 12, 2017 11:54
--- NOTE | 2017-04-12 12:06 | NUR ---
Paracentesis performed by MD this morning Pt had paracentesis this am and approx 6600cc of fluid was removed. Pt was given 20mg of propofol and 100mcg of fentanyl for pain and sedation for the procedure per MD. Pt tolerated the procedure well, although, his sats dropped to 88% and FIO2 was increased to 100% for the procedure. We have been able to titrated him down since then and he is currently back to 60% where he started. BP dropped to the high 80's sys. Albumin was ordered and is infusing now, BP currently 94/50. Family are in the room and are asking great questions, and are very supportive.
--- NOTE | 2017-04-12 12:13 | NUR ---
aware restraints continued to protect tubes/lines
--- NOTE | 2017-04-12 13:04 | NUR ---
NUTRITION FOLLOW-UP: ASSESS: 27 YO male with a recent diagnosis of metastatic gastric cancer with family history of Peutz-Jeghers syndrome admitted to CCU for bilateral DVTs and sudden onset shortness of breath. Pt remains intubated. TF off due to high residuals and lack of bowel movement. TPN started 04/09, tolerated. TPN is running at goal. Elevated AST, ALT, Alk Phos related to liver tumors. Pt had another paracentesis today with ~6600ml removed per RN note. Family care mtg today to review goals of care. Palliative care is involved. PMHx: Metastatic gastric cancer, upper GI bleed, liver biopsy, Peutz-Jeghers syndrome, LE DVTs. DIET: NPO. ENTERAL FEEDING: OFF TPN: 300g Dex, 120g AA, 10g lipids LABS: Reviewed. CO2 17, Bun 56, Glu 175, Ca 8.3, T.bili 4.7, AST 132, ALT 48, Alk Phos 471, alb 2.5 MEDICATIONS: Reviewed. Fentanyl, reglan, Precedex, Propofol rate currently 20ml/hr providing 528kcal/day GI: No stool reported, with recent hx of constipation related to pain medication regimen. SKIN: No issues reported. ANTHROPOMETRICS: Current Wt: 85.1 kg, BMI 21.1 kg/m2. Admit weight: 81.0, IBW: 100 kg (81% IBW) ESTIMATED NEEDS (CANCER/VENT): Calories: 1780-2425kcal/day (22-30kcal/kg BW) Protein: 120-145 g/day (1.5-1.8 g/kg BW) Fluid: Approx. 2425mL (30mL/kg BW) NUTRITION DIAGNOSIS: 1) Inadequate oral intake related to altered GI function, as evidenced by NPO/vent status, enteral feeding on hold - PERSISTS. 2) Increased nutrient needs related to cancer and underweight status, as evidenced by 81% IBW - PERSISTS. INTERVENTION: 1) Recommend continue TPN of Dex 300 g, AA 120 g, Lipids 10g to provide 1600 kcal, 120g protein (2128kcal TPN+Propofol), meeting 100% estimated needs. Adjust goal rate/lipids based on Propofol rate. Will continue to monitor lab trends closely MONITOR/EVALUATE: NPO/vent status, TPN kev, labs, weight, POC, GI/nutrition status. Follow per high nutrition risk guidelines.
--- NOTE | 2017-04-12 13:11 | PCM.CONPAL ---
Date of Service Apr 12, 2017 Date of Hospital Admission: Apr 03, 2017 at 10:29 Date of Palliative Consult: Apr 12, 2017 Requesting Provider: Dony Vega MD Comment: oncologist- Dr. Suazo Reason Palliative Care Consult: Goals of Care Discussion Hospital Unit @time of consult: Critical Care Palliative Care Recommendation Summary of palliative recommendations: -Symptom management (Pain/other) Unable to determine due to sedation Meeting with father, mom and 2 sisters. Later with mom and youngest sister. Mother indicated that after meeting and their private family meeting decision was to proceed with chemo. Dr. Vega had requested decision on code status--ie close to max support and poor prognosis if he deteriorates. Mother indicated request for DNR but with maintenance of aggressive interventions up to that level. Dr. Vega was going to confirm. -DPOA/Advanced Directives/POLST Reviewed code status and after conference family was comfortable with DNR status if he deteriorates. -Family/emotional support -Spiritual support Patient Goals: 1. Patient wants to be told the truth about his/her illness, even if it is unpleasant. 2. Patient would like to be told prognosis when it can be predicted, to better guide treatment decisions. 3. Patient would choose quality of life over quantity of life, and defines quality as [ ]. 4. Patient would request that comfort care take priority over cognitive/mental confusion. Additional Medical Diagnoses with primary management by Hospitalist team include : Problems: End of Life Preferences DNR-- based on discussion with family. 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 He also reports palpitations and chest pain. He denies fever, cough, sputum production, N/V/D, hematemesis, orthopnea, or PND. He had been in his usual state of health until 6 weeks ago when he had a bleeding peptic ulcer. Endoscopy showed ulcerated polyps. A biopsy of the polyps showed hamartoma, and an ultrasound of his liver showed numerous metastases. During this time, he was placed on Lovenox due to bilateral DVTs. His Lovenox was held for 2 days for a liver biopsy about 2 weeks ago, and again yesterday for PICC line placement for chemotherapy. On admission, CT scan showed massive bilateral pulmonary emboli. A stat echocardiogram showed markedly dilated right ventricle with depressed right ventricular function. The patient was intubated for acute respiratory failure and all history was obtained from medical records. He was immediately taken for EKOS catheter directed thrombolytic therapy. PALLIATIVE CARE CONSULTATION Reason: discussion on goals of care Historians- family and review of chart, hospital team. 27 yo patient with massive PE with RHF, hypoxia intubated with driving cause of adenocarcinoma of the stomach metastatic to his liver. He has massive ascites, ileus and a hx of hematemesis.See above. Per family, his start of chemo was delayed by 3 weeks due to port placement etc and he had recurrence of PE with the resultant hospitalization and treatment for respiratory failure. He has been treated with EKOS cath thrombolysis and vent support. He has been evaluated by ID and is on antibiotics due to MSSA in bronch washings and leukocytosis. Complicating issues include massive tense ascites, RHF, ileus and he is on TPN for nutritional support. Repeat CT scan notes decrease in clot burden with resolution of saddle emboli but significant distal and continued massive ascites and extensive liver mets ds. Note of congenitally absent kidney. Prior to this illness he was an athletic healthy individual. His symptoms began around 6 months ago. He had mentioned increasing back pain in the few months prior to admission.He had also lost about 15-20#. His presenting sx was dyspnea. Past Medical History Significant PMH Noted: PMH Metastatic gastric cancer Adenocarcinoma DVT bilateral knees GI bleed February 2017 Surgical History Liver biopsy Family History Mother's family has confirmed Peutz-Jeghers syndrome Social History Hx Alcohol Use: No Hx Substance Use: Yes (smokes pot) Hx Tobacco Use: No Smoking Status: Never Smoker Living Arrangement: with Family Social History Family Members Issues: Strong family with 3 sisters and parents involved. His oldest sister is an RN at the [facility] [employer]. She is his [facility] Living Situation: living with his father Spiritual Support Spiritual Support not reviewed Allergy Allergies Reviewed: Yes Medications Current Medications: Current Medications Ertapenem 1000 mg/ Sodium Chloride 50 ml @ 100 mls/hr Q24 IV Last administered on 04/12/17 08:49; Admin Dose 100 MLS/HR; Start 04/10/17 at 13:30 Dexmedetomidine HCl 400 mcg/ Sodium Chloride 104 ml @ 4.25 mls/hr Q24H IV; Start 04/11/17 at 09:10; Status Cancel Dexmedetomidine/ Sodium Chloride/ Premix 100 ml @ 0 mls/hr Q0M PRN IV Last administered on 04/12/17 12:26; Admin Dose 16 MLS/HR; Start 04/11/17 at 09:35 Miscellaneous Medication 1 ea 1 ea DAILY@21 XX; Start 04/12/17 at 21:00 Dextrose/Sodium Chloride 1,000 ml @ 50 mls/hr Q20H IV; Start 04/12/17 at 10:35 ; Stop 04/12/17 at 11:26; Status DC Dextrose/Water 1,000 ml @ 50 mls/hr Q20H IV; Start 04/12/17 at 11:25 Scheduled ([Iron]) 150 MG PO BID PT UNSURE OF DOSE ([Muscle Relaxer]) PO DAILY PT UNSURE OF DOSE Acetaminophen/Diphenhydramine (Tylenol Pm Ex-Strength Caplet) 500 Mg-25 Mg Tablet 1 EACH PO HS Enoxaparin Sodium (Enoxaparin Sodium) 40 Mg/0.4 Ml Syringe 40 MG SUBQ DAILY Pantoprazole DR (Pantoprazole DR) 40 Mg Tablet.dr 40 MG PO BID Sucralfate (Sucralfate) 1 Gm Tablet 1 GM PO TIDAC Scheduled PRN ([Al Hydrox/Mg Hydrox/Simeth]) 30 ML SUSP 30 ML PO Q6H PRN PRN For Dyspepsia or Heartburn oxyCODONE (oxyCODONE) 5 Mg Capsule 10 MG PO BID PRN PRN For Pain Objective Findings Exam Vital Sign - Last Date Time Temp Pulse Resp B/P Pulse Ox O2 Delivery O2 Flow Rate FiO2 04/12/17 12:57 87 97/43 97 60 04/12/17 11:50 Ventilator 04/12/17 11:50 37.2 21 Intake and Output 04/11/17 04/11/17 04/12/17 Cumulative From/Thru 15:00 23:00 07:00 04/03/17 07:34 - 04/12/17 06:02 Intake Total 1499 ml 2137 ml 41653 ml Output Total 610 ml 550 ml 65033 ml Balance 889 ml 1587 ml 63959 ml Intake Oral 0 ml IV Total 861 ml 952 ml 50153 ml Tube Feeding 1407 ml TPN/PPN 638 ml 1185 ml 4189 ml Packed Cells 351 ml Tube Irrigant 480 ml Output Urine Total 600 ml 450 ml 30705 ml Gastric Drainage Total 10 ml 100 ml 935 ml # Bowel Movements 0 General: Unresponsive, Chemically sedated Heart: Regular Rate/Rhythm Lungs: Other (intubated) Abdomen: Distended (tap for increased intraabd pressure completed during part of interview with family) Lab/Diagnostics Lab and Imaging results reviewed in detail in EMR. Patient/Family Conference Members Present Family Members Present 3 sisters, mother and father Medical Team Members Present? [facility], Dr. Vega park activities coordinator, residents Dr. Schulz and Christelle-, Orlando Alator[facility] and Dr. Suazo oncology, Lead RN Discussion/Goals of Care Discussion FAMILY UNDERSTANDING OF DISEASE: Understand severity of illness-able to verbalize questions and fear. Issues: chemo and severity of illness-critical options of continued aggressive treatment vs withdrawal of care and comfort measures. GOC should further potentially catastrophic complications develop--ie code vs no code. High risk of complications Antibiotics changes upon Dr. Joan Goldberg's recommendation Prognosis- poor DISEASE PROGRESSION/EVIDENCE OF DECLINE: rapidly progressive gastric adenoCA SYMPTOM BURDEN: overwhelming-critically ill GOALS: Family has a strong goal to get him off vent so he can verbalize his opinion and also so they can communicate their love HOPES/WORRIES: family with many concerns re chemo-These are reviewed in detail but put in context of all treatments with this severity of illness are high risk but other option is w/d of care. FAMILY WISHES/VALUES: Do you want to be told truth about his illness, even if unpleasant? Yes Does family want to know prognosis when it can be predicted, to better guide treatment decisions? yes Would patient choose quality of life over quantity of life? Family describes pt as "fighter", "survivor" but also not likely to be comfortable with debility Would comfort care be more important than being awake and alert? Family focused on getting him off vent/off sedation. Reviewed need for sedation on vent. Palliative Care counselled: [place] of surrogacy/decision making Challenges of prognostication--family with many questions re: "what if" Recognizing terminal nature of his malignancy--Dr. Suazo and Dr. Vega reiterated this. Dr. Suazo indicated treatment likely to buy some time but in matter of months Time spent Total time 110 minutes; >50% face to face with patient and/or family, providing counselling regarding plans and recommendations, and in care coordination with his/her medical teams. Time spent primarily with family conference but also pre and post review with family and review of chart/coordination with staff I also spent an additional [ ] minutes counseling for advanced care planning with the patient/the patients family/the surrogate decision maker. copies to: Wilmar Suazo MD, Deborah A MD Apr 12, 2017 13:11
--- NOTE | 2017-04-12 14:15 | NUR ---
Palliative care note [facility] D/A: Met with pt father, mother , two sisters as well as Devorah MURRY and larger medical team including Dr. Suazo. Discussed at length pt current condition as well as possibility of chemotherapy. Also noted was need to make a decision regarding code status. Pt two sisters expressed that they are not sure that pt would wish for chemo should he be aware of current situation. However, it was also pointed out that pt had seen [facility] providers and in fact had arranged to begin chemo. Per family, he evidently showed up for his first chemo session and was told that he could not obtain it as he did not have an access line. Shortly thereafter, pt was hospitalized for this admission. Mo points out that perhaps pt would wish for chemo at this time. Hope is that with chemo, pt would have a chance at discharge and home. Medical team feels fairly certain that without chemo, he may not be able to be discharged from hospital and may only make it off the vent in more of a compassionate extubation type situation. Left family alone to address questions of if to have pt start chemo as well as code status. P: Palliative care to follow. Asia VALDERRAMA, [facility]
[2017-04-12] MEDS: Dextrose 10% 1,000 ML IV SCH ×2 (15:25→23:54)
[2017-04-12] MEDS: ARGATROBAN IV SCH ×2 (15:26)
[2017-04-12] MEDS: SODIUM CHLORIDE IV SCH ×2 (15:26)
--- NOTE | 2017-04-12 16:15 | NUR ---
P: Resp, Hemodynamics, Neuro, Social I,E: Pt continues on the vent, FIO2 was up to 100% during the paracentesis but has now been titrated down to 50% and pt's sats are 95%. Small to scant secretions suctioned today. BP has been stable after it dropped transiently post paracentesis. albumin was given as ordered. UOP is down this shift. approx 400cc in bowles at this time. Pt is sedated with propofol and fentanyl, but does open his eyes and nod and shake his head to simple questions. Pt's family continue to support pt and each other. They were able to meet with multiple members of pt's care team today at noon for a family conference.
--- NOTE | 2017-04-12 16:27 | PCM.PNMED ---
Subjective Date of Service Apr 12, 2017 Subjective Mr Malloy is a 27 yo male recently diagnosed with gastric and no carcinoma with metastases to the liver, presented to hospital with saddle pulmonary embolism and respiratory failure. Overnight, FiO2 remains at 60. Afebrile. Hemodynamically stable. Will respond minimally to commands by nodding yes to some questions. Exam Vital Signs Vital Sign - Last Date Time Temp Pulse Resp B/P Pulse Ox O2 Delivery O2 Flow Rate FiO2 04/12/17 07:39 36.7 107 19 96/51 94 Mechanical Ventilator 04/12/17 04:39 60 Intake and Output 04/11/17 04/11/17 04/12/17 Cumulative From/Thru 15:00 23:00 07:00 04/03/17 07:34 - 04/12/17 06:02 Intake Total 1499 ml 2137 ml 97576 ml Output Total 610 ml 550 ml 76869 ml Balance 889 ml 1587 ml 82049 ml Intake Oral 0 ml IV Total 861 ml 952 ml 06859 ml Tube Feeding 1407 ml TPN/PPN 638 ml 1185 ml 4189 ml Packed Cells 351 ml Tube Irrigant 480 ml Output Urine Total 600 ml 450 ml 01985 ml Gastric Drainage Total 10 ml 100 ml 935 ml # Bowel Movements 0 Exam No physical exam today secondary to patient's family wishes IVs and Medications Medications Reviewed: Medications were reviewed in detail Lab and Diagnostics Result Diagram: 04/12/1744404/12/17 044 X-Rays, CTs and MRIs CT ANGIO CHEST PULMONARY EMBOLISM 1. Slight decrease in severe pulmonary embolic disease with resolution of the previously seen saddle embolus spanning the main pulmonary artery bifurcation. However, significant embolic burden remains bilaterally. 2. Improved aeration of the left lower lobe. Decreased right lower lobe pneumonia. 3. Moderate ascites and severe hepatic metastatic disease. 4. Healing left rib fractures. 5. Gastroesophageal reflux. Dictated by: Landon Noel M.D. on 04/11/2017 at 10:12 CT ABDOMEN AND PELVIS WITH CONTRAST 1. Interval increased amount of large abdominal and pelvic ascites, presumably from peritoneal carcinomatosis. 2. Numerous variably sized hepatic metastases again noted, most confluent in the left hepatic lobe. 3. 6.4 x 5.5 x 3.5 cm left pelvic cystic lesion appears to arise from the left seminal vesicle. 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 4. Small bibasilar mobile pleural effusions, with associated compressive atelectasis. Dictated by: Moisés Brasher M.D. on 04/11/2017 at 10:32 Chest x-ray Stable pulmonary venous engorgement and support devices. Dictated by: New Powers M.D. on 04/03/2017 at 11:01 CT angiogram 1. Multiple, bilateral large pulmonary emboli. 2. Flattening of the cardiac interventricular septum suggesting right heart strain. 3. Hepatic metastatic disease. 4. Findings telephoned to Dr. Nathan Paz on 04/03/17 at 0817 hrs. Dictated by: Louisa Jones MD, PhD on 04/03/2017 at 8:13 Chest x-ray 1. Endotracheal tube and nasogastric tube positioned as described. 2. Mild cardiomegaly and moderate vascular congestion. Dictated by: Tristin Mckenzie M.D. on 04/03/2017 at 9:55 Chest x-ray 1. Endotracheal tube is positioned at the thoracic inlet. 2. Mild cardiomegaly and vascular congestion is similar to the prior study. Dictated by: Tristin Mckenzie M.D. on 04/03/2017 at 10:03 US ABDOMEN IMPRESSION: 4 quadrant mild ascites noted, growing mass lesions throughout the liver parenchyma. Nonvisualization of the left kidney due to overlying bowel gas and inability of the patient to fully cooperate with positioning and breath holding. Dictated by: Donnie Harrington M.D. on 04/10/2017 CT ANGIO CHEST PULMONARY EMBOLISM IMPRESSION: 1. Slight decrease in severe pulmonary embolic disease with resolution of the previously seen saddle embolus spanning the main pulmonary artery bifurcation. However, significant embolic burden remains bilaterally. 2. Improved aeration of the left lower lobe. Decreased right lower lobe pneumonia. 3. Moderate ascites and severe hepatic metastatic disease. 4. Healing left rib fractures. 5. Gastroesophageal reflux. Dictated by: Landon Noel M.D. on 04/11/2017 CT ABDOMEN AND PELVIS WITH CONTRAST IMPRESSION: 1. Interval increased amount of large abdominal and pelvic ascites, presumably from peritoneal carcinomatosis. 2. Numerous variably sized hepatic metastases again noted, most confluent in the left hepatic lobe. 3. 6.4 x 5.5 x 3.5 cm left pelvic cystic lesion appears to arise from the left seminal vesicle. 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 4. Small bibasilar mobile pleural effusions, with associated compressive atelectasis. Dictated by: Moisés Brasher M.D. on 04/11/2017 Additional Diagnostics PROCEDURE: US ABDOMEN FINDINGS: Liver: Liver is enlarged in size and heterogeneous in echotexture with multiple hepatic mass lesions previously identified again seen, having enlarged in size from the comparison ultrasound 03/07/17 and the largest measures up to 5.5 x 5.0 x 4.3 cm. Gallbladder: The gallbladder watts just above the upper limits of normal at 3.1 mm, and appears to contain sludge. A small amount of adjacent free fluid can be seen. Biliary ducts: Intrahepatic bile ducts are non-dilated. Extrahepatic bile duct caliber measures 3.5 mm. Normal is 6-7 mm or less in diameter, or 10 mm or less post-cholecystectomy. Pancreas: Visualized portions of the pancreas are sonographically normal. Spleen: Spleen is normal in size and homogeneous in echotexture. Kidneys: The right kidney is normal in size and echotexture. Right kidney measures 16.3 cm long; left kidney could not be seen. No solid masses. Aorta: Visualized aorta is normal in caliber at less than 3 cm. Iliacs: Proximal common iliac arteries are normal in caliber at less than 2.5 cm. IVC: Intrahepatic inferior vena cava is patent. Miscellaneous: There is mild for quadrant abdominal free fluid. IMPRESSION: 4 quadrant mild ascites noted, growing mass lesions throughout the liver parenchyma. Nonvisualization of the left kidney due to overlying bowel gas and inability of the patient to fully cooperate with positioning and breath holding. Dictated by: Donnie Harrington M.D. 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 Hospital Day 10. #. Massive bilateral pulmonary emboli with obstructive shock, acute. Slowly improving. -Confirmed home dose of Lovenox 80 mg daily, most likely missing intermittent dosing prior to admission -Repeat CT shows unchanged clot burden despite treatment with tPA and EKOS 3. -Continue with Argatroban drip. -Continue to attempt to wean FiO2 -Additional CT imaging today shows slight improvement in emboli burdened though still significant #. Acute hypoxic respiratory failure, POA ongoing. -ICU/pulmonology team following greatly appreciated recommendations and treatment direction. - Secondary to PE and collapsed lung. Minimal success with decreasing FiO2 for prolonged periods, possibly due to VQ mismatch from lysis of the pulmonary emboli resulting in subsequent showering. Also history of collapsed left lower lobe which seems to be improved, and mucous plug removed 04/09/2017 - Additional bronchoscopy 04/09/2017 removed approximately 60 mL of dense mucous - Continue pressure control mechanical ventilation. Continue to attempt to wean FiO2 - Continue chest physiotherapy when necessary - Continue with Precedex, temp to wean off propofol #. Pneumonia, not present on admission, improving. -Bronchial washing showed staph aureus, resistant to erythromycin. The patient also has had evidence of left lower lobe collapse likely from secretions. -Discontinued Zosyn, switched to nafcillin - also discontinued -Pro calcitonin continues to trend up though in the setting of liver metastasis unreliable -WBC trending down -ID following, recommendations appreciated -Ertapenem started 04/10/2017 -Bronchoscopy as above -Continue to monitor #. Sepsis secondary to HCAP. Acute and improving. -Most likely MSSA pneumonia, confirmed by bronchoscopy and lavage -CT angio showed bilateral pleural effusions, worsening bibasilar pneumonia pattern, greater on the left than the right. -WBC trending down, afebrile 2 days -No longer following Pro calcitonin in the setting of hepatic metastases -Infectious disease following -Antibiotics as above -No vasopressor requirements #. Anasarca, new and active. The patient has significant volume overload from resuscitation. We will continue to monitor and diuresis as able. -1.5 L peritoneal fluid taken off 04/10/2017, additional paracentesis 2016 with 6.5 L taken off -Albumin replacement -Ascitic fluid shows exudate -Urinary output remains adequate -Continue to monitor #. Acute iron deficiency anemia. Stable. - Secondary to hemodilution from aggressive fluid resuscitation. Possibly secondary to GI bleed from malignant gastric ulcers, but no sign of acute bleed at this time. Hb has been stable, so will switch from PPI drip to BID. - PRBCs on hold. Transfuse for HB <8. - Check H&H daily - Protonix 40 mg IV BID - Monitor for signs of acute bleeding #. Bilateral popliteal DVT, POA and active. - Pt diagnosed with bilateral large DVTs 3 weeks ago, placed on Lovenox at home with possible missed doses - Currently therapeutic on Argatroban #. Metastatic liver cancer due to poorly differentiated adenocarcinoma. - Per ICU team - CT abd/pelvis on 04/11/17 revealed numerous variably sized hepatic metastases, most confluent in the left hepatic lobe. - Given the rapid progression of his adenocarcinoma, it is reasonable to proceed with chemotherapy if his family chooses to go that route. However, we discussed the risk of chemo with the family, include but not limited to: 1) bleeding into liver or gut due to tumor necrosis while anticoagulated, 2) severe sepsis in the face of underlying partially treated bacterial infection, 3 ) tumor lysis syndrome, 4) Perforated bowel/stomach - Oncology is waiting for HER 2 status in order to determine whether Herceptin would be an option along with FOLFOX. Treatment would be largely palliative and fraught with multiple potential catastrophic complications. - Multidisciplinary meeting with Oncology and Palliative Care to define goals of care and code status. #. Hyperbilirubinemia, new and active. - Bilirubin and Alkaline phos trending up; scleral icterus on exam; likely secondary to hepatic metastases. - Abdominal and pelvis CT shows growing mass lesions throughout liver parenchyma #. Constipation. Present on admission Ongoing -Refractory to all multiple enemas including enema with with FMS -Refractory to suppository -Continue aggressive bowel regimen #. Malnutrition. Ongoing -Nutrition following, TPN started with concentrated formula Dangerous meds include fentanyl drip and propofol. Disposition: Remains intubated sedated ICU status Patient is on PPO BID for GI prophylaxis. He is on Argatroban ggt for PE, which is therapeutic. GI Prophylaxis: Proton Pump Inhibitor VTE Prophylaxis: Other (Argatroban ggt) Resuscitation Status: CPR: Attempt Resuscitation Time spent 30 minutes Attending Statement Agree with above assessment and plan as outlined above. BRICE BROWN DO Apr 12, 2017 08:34 Anna Marino MD Apr 13, 2017 07:06
--- NOTE | 2017-04-12 17:08 | PCM.PNMED ---
Subjective Date of Service Apr 12, 2017 Subjective 27 yo man with recent diagnosis of gastric adeno CA admitted with massive PE and respiratory failure. Has had trial of EKOS 04/03 but repeat CTPA 04/05showed no resolution of his bilat PE's. Overnight required increase in sedation to maintain vent synchrony. His FiO2 has been weaned to 0.4 from 0.6. Had repeat CTPA and CT of Abd/Pelvis today which was personally reviewed and showed NO resolution of extensive thrombus in both main Pulmonary arteries and nearly all branches, especially those in the RLL and RML. In addition there appears to be progressive disease in his liver with near total replacement of the left lobe with masses. Yesterday on 04/11, I spoke at length with Curtis's mother, sister, and father about the results of the CT's and the events of the last 24 hours. We discussed possible options for going forward and I essentially presented 3 different paths. First, I offered that we could continue fully aggressive support, as we are currently, with the expectation that he will eventually of his rapidly growing tumor, possibly within days or a couple weeks. The next option centers on administration of chemotherapy directed at his disseminated tumor along with a jermaine description of the multiple catastrophic complications that could occur as a result and, for which, we would have no effective treatment. These include gastric rupture, hepatic failure, severe GI hemorrhage, tumor lysis, renal failure, ARDS, sepsis, etc. Finally, we discussed withdrawal of Curtis's ventilator and shifting focus to comfort care with the expectation that he would within hours to a few days. I've spoken with Curtis's oncologist, Dr. Suazo, who has offered to meet with me and the family later today to give them a full understanding of the choices and likely outcomes. Palliative Care has kindly agreed to take part in the discussion as well. I also offered to seek transfer of Curtis to a tertiary center such as if the family wishes to explore that however I told them that I doubted that could offer any additional options that might alter the final outcome. Today, we had another family meeting to discuss prognosis and formulate a plan. Dr. Suazo, Dr. Calvo, Dr. Bourgeois met with the family along with nursing staff. We again presented the above 3 options and answered all questions. In addition, we asked the family to consider whether it was appropriate for Curtis to continue on Full Code status. After several hours deliberation, the family reported to me, Dr. Calvo, Dr. Bourgeois and staff that they had decided that 1) they would like for Curtis to begin chemo and 2) his code status should change to DNAR. We repeated the large volume therapeutic paracentesis today and removed 6 L thin bile stained ascitic fluid without complications. Exam Vital Signs Vital Sign - Last Date Time Temp Pulse Resp B/P Pulse Ox O2 Delivery O2 Flow Rate FiO2 04/12/17 15:52 Ventilator 04/12/17 15:52 37.3 86 20 97/48 95 50 Intake and Output 04/11/17 04/11/17 04/12/17 Cumulative From/Thru 14:59 22:59 06:59 04/03/17 07:34 - 04/12/17 06:02 Intake Total 1499 ml 2137 ml 87307 ml Output Total 610 ml 550 ml 46079 ml Balance 889 ml 1587 ml 01192 ml Intake Oral 0 ml IV Total 861 ml 952 ml 13345 ml Tube Feeding 1407 ml TPN/PPN 638 ml 1185 ml 4189 ml Packed Cells 351 ml Tube Irrigant 480 ml Output Urine Total 600 ml 450 ml 28474 ml Gastric Drainage Total 10 ml 100 ml 935 ml # Bowel Movements 0 Exam Pale, jaundiced, cachectic young man orally intubated Lungs decreased BS, scattered coarse crackles, NO wheezes CV RRR, no m/g/r today Abd Softer after paracentesis, NO BTs, Ext Warm, 1+ edema both UE and LE's Neuro Purposeful movements of all 4, Opens eyes to loud voice and nox stim IVs and Medications Medications Reviewed: Medications were reviewed in detail Lab and Diagnostics Result Diagram: 04/12/1744404/12/17444 X-Rays, CTs and MRIs CT ANGIO CHEST PULMONARY EMBOLISM 1. Slight decrease in severe pulmonary embolic disease with resolution of the previously seen saddle embolus spanning the main pulmonary artery bifurcation. However, significant embolic burden remains bilaterally. 2. Improved aeration of the left lower lobe. Decreased right lower lobe pneumonia. 3. Moderate ascites and severe hepatic metastatic disease. 4. Healing left rib fractures. 5. Gastroesophageal reflux. Dictated by: Landon Noel M.D. on 04/11/2017 at 10:12 CT ABDOMEN AND PELVIS WITH CONTRAST 1. Interval increased amount of large abdominal and pelvic ascites, presumably from peritoneal carcinomatosis. 2. Numerous variably sized hepatic metastases again noted, most confluent in the left hepatic lobe. 3. 6.4 x 5.5 x 3.5 cm left pelvic cystic lesion appears to arise from the left seminal vesicle. 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 4. Small bibasilar mobile pleural effusions, with associated compressive atelectasis. Dictated by: Moisés Brasher M.D. on 04/11/2017 at 10:32 Chest x-ray Stable pulmonary venous engorgement and support devices. Dictated by: New Powers M.D. on 04/03/2017 at 11:01 CT angiogram 1. Multiple, bilateral large pulmonary emboli. 2. Flattening of the cardiac interventricular septum suggesting right heart strain. 3. Hepatic metastatic disease. 4. Findings telephoned to Dr. Nathan Paz on 04/03/17 at 0817 hrs. Dictated by: Louisa Jones MD, PhD on 04/03/2017 at 8:13 Chest x-ray 1. Endotracheal tube and nasogastric tube positioned as described. 2. Mild cardiomegaly and moderate vascular congestion. Dictated by: Tristin Mckenzie M.D. on 04/03/2017 at 9:55 Chest x-ray 1. Endotracheal tube is positioned at the thoracic inlet. 2. Mild cardiomegaly and vascular congestion is similar to the prior study. Dictated by: Tristin Mckenzie M.D. on 04/03/2017 at 10:03 US ABDOMEN IMPRESSION: 4 quadrant mild ascites noted, growing mass lesions throughout the liver parenchyma. Nonvisualization of the left kidney due to overlying bowel gas and inability of the patient to fully cooperate with positioning and breath holding. Dictated by: Donnie Harrington M.D. on 04/10/2017 CT ANGIO CHEST PULMONARY EMBOLISM IMPRESSION: 1. Slight decrease in severe pulmonary embolic disease with resolution of the previously seen saddle embolus spanning the main pulmonary artery bifurcation. However, significant embolic burden remains bilaterally. 2. Improved aeration of the left lower lobe. Decreased right lower lobe pneumonia. 3. Moderate ascites and severe hepatic metastatic disease. 4. Healing left rib fractures. 5. Gastroesophageal reflux. Dictated by: Landon Noel M.D. on 04/11/2017 CT ABDOMEN AND PELVIS WITH CONTRAST IMPRESSION: 1. Interval increased amount of large abdominal and pelvic ascites, presumably from peritoneal carcinomatosis. 2. Numerous variably sized hepatic metastases again noted, most confluent in the left hepatic lobe. 3. 6.4 x 5.5 x 3.5 cm left pelvic cystic lesion appears to arise from the left seminal vesicle. 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 4. Small bibasilar mobile pleural effusions, with associated compressive atelectasis. Dictated by: Moisés Brasher M.D. on 04/11/2017 Additional Diagnostics PROCEDURE: US ABDOMEN FINDINGS: Liver: Liver is enlarged in size and heterogeneous in echotexture with multiple hepatic mass lesions previously identified again seen, having enlarged in size from the comparison ultrasound 03/07/17 and the largest measures up to 5.5 x 5.0 x 4.3 cm. Gallbladder: The gallbladder watts just above the upper limits of normal at 3.1 mm, and appears to contain sludge. A small amount of adjacent free fluid can be seen. Biliary ducts: Intrahepatic bile ducts are non-dilated. Extrahepatic bile duct caliber measures 3.5 mm. Normal is 6-7 mm or less in diameter, or 10 mm or less post-cholecystectomy. Pancreas: Visualized portions of the pancreas are sonographically normal. Spleen: Spleen is normal in size and homogeneous in echotexture. Kidneys: The right kidney is normal in size and echotexture. Right kidney measures 16.3 cm long; left kidney could not be seen. No solid masses. Aorta: Visualized aorta is normal in caliber at less than 3 cm. Iliacs: Proximal common iliac arteries are normal in caliber at less than 2.5 cm. IVC: Intrahepatic inferior vena cava is patent. Miscellaneous: There is mild for quadrant abdominal free fluid. IMPRESSION: 4 quadrant mild ascites noted, growing mass lesions throughout the liver parenchyma. Nonvisualization of the left kidney due to overlying bowel gas and inability of the patient to fully cooperate with positioning and breath holding. Dictated by: Donnie Harrington M.D. 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 IMP Resp failure Multifactorial with massive PE, LLL PNA and marked abdominal distension all contributing. There has been NO radiographic resolution of his extensive bilateral PE's despite EKOS and systemic anticoagulation with heparin and argatroban now. His tense ascites has rapidly reaccumulated and while his FiO2 has been decreased over night I doubt he would survive more than a few hours once extubated as he is so weak, septic, hypoxemic and would require large doses of opiates and probably benzodiazepines to maintain comfort. Day #3 empiric ertapenem for LLL PNA. Following the removal of 6 L ascitic fluid today , his O2 requirements have decreased and he appears more comfortable. Will continue to assess daily for vent liberation. PE Bilat Massive PE. Had RV pressure overload on echo but no improvement after EKOS and anticoagulation on followup CTs. Possible this is not all thrombosis but instead some degree of tumor emboli given extent of hepatic involvement. He is undoubtably thrombophilic due to his advance gastric cancer. Systemic thrombolysis not an option given his history of Gastric tumor and recent GI bleeds requiring transfusion. An attempt at catheter directed therapy with EKOS has failed and surgical thrombectomy is not a consideration given his primary diagnosis and exceeding grim prognosis based on that. Gastric CA Oncology is waiting for HER 2 status in order to determine whether Herceptin would be an option along with FOLFOX. His family has decided to begin chemotherapy and have been full and repeatedly informed of the significant risks for catastrophic complications for which there may be no effective treatment. In the event of a cardiac arrest, he is now DNAR. Ascites A reflection of his elevated RV pressure and hypoalbuminemia along with his hepatic tumor involvement. Improved after 6 L removed today. Given 25 gms albumin REC FOLFOX +/- Herceptin per Oncology Abx per ID Repeat therapeutic large volume paracentesis repeated as needed Continuous sedation with fentanyl, precedex and propofol with daily awakening trial and SBT TPN Argatroban GI prophylaxis Pain Evaluation: Adequate Pain Control GI Prophylaxis: Proton Pump Inhibitor VTE Prophylaxis: Other (Argatroban ggt) Resuscitation Status: CPR: Attempt Resuscitation Time spent One hour and 20 minutes critical care today including direct care, documentation , and meeting with other physicians to coordinate care and meeting with surrogates for decision making. This is exclusive of shared time and procedures. Dony Vega MD Apr 12, 2017 17:08 secondary to GI bleed from malignant gastric ulcers, but no sign of acute bleed at this time. Hb has been stable, so will switch from PPI drip to BID. - PRBCs on hold. Transfuse for HB <8. - Check H&H daily - Protonix 40 mg IV BID - Monitor for signs of acute bleeding #. Bilateral popliteal DVT, POA and active. - Pt diagnosed with bilateral large DVTs 3 weeks ago, placed on Lovenox at home with possible missed doses - Currently therapeutic on Argatroban #. Metastatic liver cancer due to poorly differentiated adenocarcinoma. - Per ICU team - CT abd/pelvis on 04/11/17 revealed numerous variably sized hepatic metastases, most confluent in the left hepatic lobe. - Given the rapid progression of his adenocarcinoma, it is reasonable to proceed with chemotherapy if his family chooses to go that route. However, we discussed the risk of chemo with the family, include but not limited to: 1) bleeding into liver or gut due to tumor necrosis while anticoagulated, 2) severe sepsis in the face of underlying partially treated bacterial infection, 3 ) tumor lysis syndrome, 4) Perforated bowel/stomach - Oncology is waiting for HER 2 status in order to determine whether Herceptin would be an option along with FOLFOX. Treatment would be largely palliative and fraught with multiple potential catastrophic complications. - Multidisciplinary meeting with Oncology and Palliative Care to define goals of care and code status. #. Hyperbilirubinemia, new and active. - Bilirubin and Alkaline phos trending up; scleral icterus on exam; likely secondary to hepatic metastases. - Abdominal and pelvis CT shows growing mass lesions throughout liver parenchyma #. Constipation. Present on admission Ongoing -Refractory to all multiple enemas including enema with with FMS -Refractory to suppository -Continue aggressive bowel regimen #. Malnutrition. Ongoing -Nutrition following, TPN started with concentrated formula Dangerous meds include fentanyl drip and propofol. Disposition: Remains intubated sedated ICU status Patient is on PPO BID for GI prophylaxis. He is on Argatroban ggt for PE, which is therapeutic. GI Prophylaxis: Proton Pump Inhibitor VTE Prophylaxis: Other (Argatroban ggt) Resuscitation Status: CPR: Attempt Resuscitation Dony Vega MD Apr 12, 2017 17:08
--- NOTE | 2017-04-12 18:38 | NUR ---
Vent settings have been adjusted by RT titrating Peep and FIO2 down Pt has been able to go down to 40% FIO2 on the vent and peep was titrated down to 5.
--- NOTE | 2017-04-12 21:15 | ABG ---
DateTimeAnalyzed 21:07:00 -_ pH ____7.395 - 7.350 7.450 pCO2 ___30.9__ -mmHg 35.0 45.0 pO2 ___63.0__ -mmHg 69.0 116 HCO3- ___18.5__ -mmol/L 22.0 26.0 ABE ___-5.1__ -mmol/L -2.0 2.0 tHb ____9.0__ -g/dL 12.0 18.0 O2Hb ___90.0__ -% COHb ____1.4__ -% 0.0 1.5 MetHb ____0.8__ -% 0.4 1.5 sO2 ___92.0__ -% 25.0 FIO2 ___40.0__ -% PEEP ____5.0__ -cmH2O Set_RR ___12.0__ -b/min Drawn By TLA - Date/Time Notified____ 21:15:00 -_ Spontaneous_RR ___13.0__ -b/min Oxygen Device 1 VENTILATOR - Notified By TLA - Notified Whom Erica R- RN - B 759 -mmHg tO2 ___11.5__ -Vol% Yaakov test N/A -
[2017-04-12] MEDS: TPN Per Pharmacist XX SCH (21:58)
[2017-04-12] MEDS: Total Parenteral Nutrition 1 BAG IV SCH (21:58)
--- NOTE | 2017-04-12 23:30 | NUR ---
BP Pt BP trending low with MAPs in 50s and DBP 30s. MD notified. Orders for 250cc bolus, IV albumin x 1. CVP 6-7. Pt BP responded well to bolus. Currently stable. Care ongoing
[2017-04-12] MEDS ORDERED: 0.9% Sodium Chloride 250 ML IV ONE (23:40)
[2017-04-12] MEDS ORDERED: Albumin 25% 25 GM in IV Premix 1 EACH IV ONE (23:40)
[2017-04-13] VITALS (15 sets, daily range): BP systolic 92–122; BP diastolic 33–76; PULSE 73–94; RESP 14–30; O2SAT 86–98
[2017-04-13] MEDS: Propofol Inj 1,000,000 MCG in IV Premix 1 EACH IV PRN ×6 (02:40→23:04)
--- NOTE | 2017-04-13 04:09 | ABG ---
DateTimeAnalyzed 04:00:00 -_ pH ____7.401 - 7.350 7.450 pCO2 ___32.4__ -mmHg 35.0 45.0 pO2 ___68.4__ -mmHg 69.0 116 HCO3- ___19.7__ -mmol/L 22.0 26.0 ABE ___-3.9__ -mmol/L -2.0 2.0 tHb ____8.9__ -g/dL 12.0 18.0 O2Hb ___92.1__ -% COHb ____1.2__ -% 0.0 1.5 MetHb ____0.8__ -% 0.4 1.5 sO2 ___94.0__ -% 25.0 FIO2 ___40.0__ -% PEEP ____5.0__ -cmH2O Set_RR ___12.0__ -b/min Drawn By TLA - Date/Time Notified____ 04:08:00 -_ Spontaneous_RR ___13.0__ -b/min Oxygen Device 1 VENTILATOR - Notified By TLA - Notified Whom Mica R.- RN - B 759 -mmHg tO2 ___11.5__ -Vol% Yaakov test N/A -
[2017-04-13 04:28] LABS: BASOPHILS % (AUTO) 0.5 % (0-3); EOSINOPHILS % (AUTO) 0.9 % (0-5); MONOCYTES % (AUTO) 5.5 % (4-12); Mean Corpuscular Hemoglobin 22.9 pg (27.0-35.0); Mean Corpuscular Volume 70.7 fL (81-100); Platelet Count 435 bil/L (150-400)
[2017-04-13] MEDS: Chlorhexidine 0.12% 15 mL Oral Solution MT SCH ×5 (05:20→20:33)
[2017-04-13] MEDS: Dexmedetomidine 400 mCg/100 mL 400 MCG in IV Premix 1 EACH IV PRN ×6 (05:20→23:04)
--- NOTE | 2017-04-13 05:21 | NUR ---
Chemo check Brisk blood return confirmed at 8 hour intervals. Chemo infusing without concerns.
--- NOTE | 2017-04-13 05:35 | NUR ---
Neuro/Vent Attempting to titrate off Propofol. Pt seemingly more alert and oriented. He was able to nod his head yes/no seemingly appropriately. Was able to follow commands most of time when awake. Pt was fairly clear he did not want breathing tube and would not head vehemently "yes" when asked if he wanted "that breathing tube out". Labs/ABGs/CXR ordered and implemented. Weaned pt as much as tolerated. he would still have episodes of panic/distress after longer periods of being awake, but this may be from not like ET tube and from pain. MD notified of above. Choice to wait for any potential pressure support trial until day shift team arrives to physically see how pt tolerates, and so pt does not become fatigued. Pt father Roberto would also like to speak with MD team before any administration of chemo etc
[2017-04-13 05:37] LABS: Magnesium 2.6 mg/dL (1.6-2.6)
--- NOTE | 2017-04-13 05:57 | NUR ---
Desat Pt turned on L side. After several minutes started to desaturate into high 80s. RR increased despite appearance that pt is asleep/sedated. No lungs sounds heard on R side but both myself and RT. When pt was sat up for CXR there was immediate increase is saturation to mid/high 90s. CXR did not show evidence on pneumothorax or obvious lung distress. Pt remains sitting for optimal SpO2 monitoring. Lung sounds diminshed but heard in R lung. Father aware. notified. Care ongoing
--- NOTE | 2017-04-13 06:02 | NUR ---
Chemotherapy Call to pharmacy regarding plans for chemo. Per pharmacist, they have orders and meds, just need time of administration. Medication will need ~30minutes to 1 hour to prepare. Also need to coordinate administration schedule with [facility] nurse. Environmental Health Safety Manager aware
--- NOTE | 2017-04-13 07:59 | DRSVH ---
PROCEDURE: X-RAY CHEST ONE VIEW, PORTABLE ([id number]) INDICATIONS: INC OXYGEN NEED, DECREASED BREATH SOUNDS RIGHT SIDE TECHNIQUE: One view of the chest was acquired. COMPARISON: 04/10/2017 FINDINGS: Surgical changes and devices: Endotracheal tube with tip above the alen. Nasogastric tube with tip in the stomach. Left-sided PICC line with tip overlying the right atrium. Lungs and pleura: Small left pleural effusions, no pneumothorax. Left lower lobe consolidation medial ly appears unchanged. Minimal accentuated markings at the right lung base. Mediastinum: Mediastinal contours appear normal. Heart size is normal. Bones and chest wall: No suspicious bony lesions. Overlying soft tissues appear unremarkable. IMPRESSION: 1. Support tubes appear in place. PICC line appears to be in the atrium 2. Mild right lower lobe interstitial infiltrate. Persistent left lower lobe consolidation. Small lef t pleural effusion. Findings compatible with pneumonia/aspiration. Dictated by: David Greer M.D. on 04/13/2017 at 7:55 Approved by: David Greer M.D. on 04/13/2017 at 7:57
[2017-04-13] MEDS: Insulin LISPRO 300 Unit/3 mL Inj SUBQ SCH ×4 (08:00→20:35)
--- NOTE | 2017-04-13 08:49 | PROG NOTE ---
[address] [address] PROGRESS NOTE PATIENT: DREA PELAYO : 1990 MR#: [id number] ADMIT: 04/03/2017 JOB ID: [id number] DATE: 04/13/2017 INFECTIOUS DISEASE FOLLOWUP NOTE: REASON FOR FOLLOWUP: MSSA colonization and/or infection in a patient with metastatic gastric adenocarcinoma. INTERVAL HISTORY: Overnight, the patient has remained relatively stable on the ventilator. A discussion held yesterday ended with the conclusion that the patient would be a candidate for chemotherapy starting today even though such therapy will likely be quite hazardous. The patient has been more awake overnight and has been following some commands. He becomes agitated when all the sedation is removed, however, as he really wants to be extubated. The patient is currently off vasopressor agents, producing good amounts of urine, his ventilatory status has improved overnight and he has now been weaned down to 40% FiO2 and 5 of PEEP. This morning he would open his eyes and move his hands when requested but was otherwise little else in the way of history I could obtain from him given his intubated and somewhat sedated status. This case was discussed at the bedside with Respiratory Therapy, Nursing and the patient's mother. PHYSICAL EXAMINATION: Reveals an afebrile gentleman, temp 36.8, pulse 76, respiratory rate is ventilator dependent. Blood pressure 93/33 according to the latest notes in the chart but prior to that consistently about 110/40. He is on 40% FiO2 and 5 of PEEP. He does not appear to be in any acute distress. Eyes without conjunctivitis but with clear scleral icterus. Oral endotracheal tube and oral gastric tube in good position. Neck without adenopathy. Lungs with scattered rales bilaterally. The respiratory therapist reports there have been minimal yellow secretions from the endotracheal tube. Cardiac tones mildly tachycardic without murmur. Abdomen is much less distended but he did have a 6 L paracentesis yesterday. No appreciable abdominal tenderness or hepatosplenomegaly today. Lowery catheter is present, and there is some degree of scrotal edema. His legs below the knees are quite edematous, 3+ bilaterally. No skin rashes noted. LABORATORIES: Include white blood count 18,700, platelet count 435,000. Creatinine 0.75, which is markedly improved. Bilirubin 5.8. AST 247 and ALT 68; those are both increased somewhat. Alk phos stable at 448. Micro studies of interest include the ascitic fluid from the which is culture negative. Yesterday's ascitic fluid apparently was not cultured. The two bronch wash cultures from the and both grew MSSA. IMAGING: Reviewed, and I compared today's chest x-ray to prior films. It shows a new subtle right lower lobe infiltrate, which is interstitial in appearance. There is still a bit of consolidation perhaps at the left base which is fairly subtle. IMPRESSION: This patient remains critically ill, though his ventilatory status has improved somewhat since yesterday and he is more awake. Additionally, he seems more comfortable following the withdrawal of 6 L of probably malignant peritoneal fluid. His overall condition remains, of course, overall extremely critical. I agree with the plans to give chemo as would seem there has been no chance whatsoever of survival beyond another week or two without chemotherapy. Chemotherapy, of course, comes with a great risk in this patient but I agree with starting it. RECOMMENDATIONS: 1. Will continue with ertapenem for possible aspiration and/or MSSA respiratory tract infection, though his improving ventilatory situation, minimal respiratory secretions and clear lungs on auscultation all argue against significant pulmonary infection. 2. Will continue to closely watch this patient with you as he receives cytotoxic chemotherapy. 3. This case discussed at the bedside with Nursing and Respiratory Therapy as indicated.
--- NOTE | 2017-04-13 09:06 | PROG NOTE ---
[address] [address] PROGRESS NOTE PATIENT: CURTIS PELAYO : 1990 MR#: [id number] ADMIT: 04/03/2017 JOB ID: [id number] DATE: 04/13/2017 HOSPITAL ROUNDS AND FAMILY CONFERENCE: This is a 27-year-old man who has been in the hospital since April 03, nine days, after presenting with massive pulmonary embolism and respiratory failure. Since then he has had three CT angiograms and has switched from heparin to argatroban. The anti thrombin III came back at 39%, normal 70-124, explaining his heparin resistance. It is hoped that the argatroban will continue to afford improvement. However, the reading on the CT scan was at best stable to minimally encouraging. This is because there was reportedly a slight decrease in severe pulmonary embolic disease with resolution of the previous saddle embolus but significant embolic burden remaining. The importance of this from the standpoint of his overall management is that the longer he remains intubated without recovery of his respiratory status, the more progression of his cancer and the greater risk for multiple other complications. His current medical problems and complications include: 1. 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 He has innumerable liver metastases which have grown during the sequential imaging studies, with the risk of progressive liver failure. 2. Massive PE with circulatory compromise and right heart failure resulting in among other things ascites and peripheral edema; the pressure from ascites has compromised bowel function. He has had multiple taps, most recently with removal of 6000 cc with improvement but he remains with an ileus. 3. The liver disease is contributing to his ascites and ileus and it will compromise his nutritional status. 4. The patient is on TPN. The efficacy of this will depend on his liver status. 5. The patient has had multiple bronchoscopies with removal of bacteria, which showed MSSA for which he is being treated; he is being managed also by Dr. Goldberg. 6. Gastrointestinal bleed with iron deficiency anemia. 7. Malnutrition now on TPN. 8. Not mentioned above, bilateral popliteal DVT. 9. Severe pain. This is likely related to liver metastases, but he has also had severe back pain without evidence of skeletal metastases on CT. He is sedated and treated with pain medications as well contributing to his ileus and difficulty in achieving progress toward weaning. Subjectively, he is able to communicate a bit. He is able to wave his hand to say no to certain questions. He did open his eyes and look at me but it is not clear whether he was interacting. He appears to be comfortable now and his family states that he does respond when asked if he is in pain, which he was not at the last questioning. Objectively, his respiratory parameters remained stable. At this time, he was on 40% FiO2 and breathing approximately 17 per minute; the ventilator was set at 12. His vital signs showed a temperature of 37.3, pulse 86, respiratory rate 20, blood pressure 97/48, pulse ox was 95% on 50% at that time. When I examined him, he was at 40%. There was no temperature recorded at that time at 1701, otherwise V/S stable. His weight 81.8 kg, had 1699 mL of IV fluid and 2422 mL of TPN. Head and neck: The patient appears well cared for. Oral mucosa is clean. His conjunctivae are clean and without erythema. His lung irwin are clear to auscultation anteriorly and laterally. Cardiac rhythm is regular without murmur. Abdomen: No appreciable bowel sounds, less distended. The patient has had 6000 cc of ascitic fluid removed. Extremities show 3+ peripheral edema. LABORATORY VALUES: The white count is 19.2 with 89% segs, 3% lymphs, hemoglobin 10.0, hematocrit 31.1. MCV remains low at 71.2 and platelets 393. The BUN and creatinine 56 and 1.04. CO2 17. Calcium 8.3. Bilirubin is down a little bit to 4.7 from 5.2, and the alk phos is a little higher at 471 compared to 395. Transaminases remain similar at 132 for AST and 48 for ALT. Albumin is 2.5. The patient's ATIII was low as noted above. . ASSESSMENT/RECOMMENDATIONS: Earlier in the day the patient was discussed at the half hour family conference. I believe the conference lasted longer but I had to go back to clinic. In that conference, we again discussed the fact that the patient is really in a stagnating state at this point, since the cancer is growing, his liver failure is becoming more imminent and without any cancer treatment, he will eventually succumb to complications of liver failure. Whether he will be able to get off the respirator and go home with some level of comfort is uncertain. We discussed at length the complications that can occur during hospitalization with the intensive supportive care he is now receiving and we discussed the potential complications of adding chemotherapy. My position was that chemotherapy is one of many of the aggressive and high-risk interventions he has undergone and not fundamentally different from the other interventions and therefore, needs to be considered at its face value and for its potential complications. I also explained that FOLFOX chemotherapy tends not to be fraught with some of the major complications of other chemotherapy regimens such as cytopenias, but in his condition and with the large tumor burden, he could still undergo some level of tumor lysis and develop other complications including more thrombosis, even portal vein thrombosis and worsening of his respiratory failure as well as infectious and bleeding complications. The family was faced with the challenge that it is highly unpredictable how he would respond to chemotherapy and that his response would really depend on his ability to survive his current events for more than a few weeks. I explained and I think the team explained that this is a situation in which there is no good answer and that if he wishes to initiate chemotherapy we will do that with extreme caution and monitor him closely for correctable side effects. I also indicated that I agreed that he should be no CPR but that all efforts up to that point should be kept open. I explained that should he develop major life threatening complications to chemotherapy we would probably not be able to fix those and that would include progressive liver failure, increasing thrombotic disease, DIC, tumor lysis syndrome, infection and bleeding and that we would support him but that if complication that was irreversible developed, we would have to be very jermaine with the family and indicate that at that point we could not correct the problem. With this in mind, the family was left with the challenge of deciding between continuing the current treatment without chemotherapy, continuing it with chemotherapy, or going onto palliative care with the eventual transfer to hospice. When I left the meeting, that decision was not made but I was informed when I returned that the family had decided to go forward with chemotherapy. I have discussed this case with several of the GI oncologists at [facility] and there has been a consistent agreement that if the patient's medical condition allows, he is entitled to an attempt at chemotherapy. It would be considered palliative at this point. I most recently spoke with Dr. Huyen Garrison, of GI Oncology, who recommended a modification of the FOLFOX regimen to 80% of all meds with deletion of the 5-FU bolus and this has been placed in the orders. This is a very difficult decision both for the family and for the team that is caring for him and without the superb efforts of pulmonary and critical care team this point would never have even been reached and this decision would not have been needed. Chemotherapy counselling and consent was conducted with Curtis's father. Dr. Boubacar Santos will be cotton broker over the weekend and he is aware of the details of this case. The time spent on this case including family conference, patient evaluation and chemotherapy counselling was over one hour. EMIR
[2017-04-13] MEDS: [UNRECOGNIZED DRUG - REMARK] XX SCH (09:23)
[2017-04-13] MEDS: Pantoprazole 4 mg/mL 10 mL Inj IVPUSH SCH ×2 (09:23→16:35)
[2017-04-13] MEDS: Ertapenem Inj 1,000 MG in 0.9% Sodium Chloride 50 ML IV SCH (09:23)
[2017-04-13] MEDS: Polyethylene Glycol (PEG) 17 Gm Powder PO SCH ×2 (09:23→20:33)
--- NOTE | 2017-04-13 09:49 | NUR ---
NUTRITION FOLLOW-UP: ASSESS: 27 YO male with a recent diagnosis of metastatic gastric cancer with family history of Peutz-Jeghers syndrome admitted to CCU for bilateral DVTs and sudden onset shortness of breath. Pt remains intubated, with an apparent ileus, as evidenced by lack of any stool since admission x 10 D. Enteral feeding was discontinued due to high residuals. TPN was initiated 04/09, and rate is currently meeting macronutrient goals. Labs remain concerning, as Total Bili, AST, ALT, and Alk Phos remain elevated, likely related to liver status. Paracentesis yesterday removed ~6600 ml malignant fluid. Following extensive multidisciplinary family meeting yesterday, the plan is to initiate palliative chemotherapy today; code status changed to DNR. He is to remain intubated, with increased sedation for comfort. His respiratory status is improved. He appears agitated with the ET tube; however, he is following commands. PMHx: Metastatic gastric cancer, upper GI bleed, liver biopsy, Peutz-Jeghers syndrome, LE DVTs. DIET: NPO. ENTERAL FEEDING: OFF TPN: 300 g Dex, 120 g AA, 10 g lipids LABS: Reviewed. BUN 60, Cr 0.75, Glu 132, Ca 8.1, Total Bili 5.8, AST 247, ALT 68, Alk Phos 448, alb 2.5, Triglycerides 360. MEDICATIONS: Reviewed. Bowel regimen, insulin, fentanyl, precedex. Propofol rate currently 21.9 ml/hr providing 578 lipid kcal. GI: No stool reported, with recent hx of constipation related to pain medication regimen. SKIN: No issues reported. ANTHROPOMETRICS: Current Wt: 85.1 kg, BMI 21.1 kg/m2. Admit weight: 81.0, IBW: 100 kg (81% IBW) ESTIMATED NEEDS (CANCER/VENT): Calories: 1780-2425kcal/day (22-30kcal/kg BW) Protein: 120-145 g/day (1.5-1.8 g/kg BW) Fluid: Approx. 2425mL (30mL/kg BW) NUTRITION DIAGNOSIS: 1) Inadequate oral intake related to altered GI function, as evidenced by NPO/vent status, enteral feeding on hold - PERSISTS. 2) Increased nutrient needs related to cancer and underweight status, as evidenced by 81% IBW - PERSISTS. INTERVENTION: 1) Recommend continue TPN of Dex 300 g, AA 120 g, Lipids 10 g to provide 1600 kcal, 120 g protein (2178 kcal TPN+Propofol), meeting 100% estimated needs. Will adjust goal rate/lipids based on Propofol rate. Will continue to monitor lab trends closely. MONITOR/EVALUATE: NPO/vent status, TPN kev., labs, weight, POC, GI/nutrition status. Follow per high nutrition risk guidelines.
[2017-04-13] MEDS: fentaNYL 2,500 mCg/250 mL 2,500 MCG in IV Premix 1 EACH IV SCH ×2 (10:00→16:47)
--- NOTE | 2017-04-13 10:02 | PCM.PNMED ---
Subjective Date of Service Apr 13, 2017 Subjective Pulmonary Critical Care Progress Note: Curtis Malloy is a 27 yo man with recent diagnosis of gastric adenocarcinoma with hepatic metastases who presented to the hospital with saddle pulmonary embolism and acute respiratory failure. He was treated with EKOS catheter directed thrombolytic therapy x 3 with no change in massive clot burden on repeat CTs. Heparin gtt was ineffective and was switched to Argatroban ggt. CT abdomen/pelvis on 04/11/2017 showed progression of the liver tumors and family decided to start chemo therapy today 04/13/2016. Overnight, the patient has remained relatively stable on the ventilator and has been weaned down to 40% FiO2 and 5cm of PEEP. Per nursing report, he has been more awake overnight and has been following some commands. However, he became agitated and expressed the wish to be extubated. In addition, his BP was low with MAPs in 50s and DBP 30s. He was given 25gms of IV albumin and 250cc NS bolus. His BP has been stable since. This morning, his parents express concerns of extubation as he was suffering tremendously prior to the hospital admission and they do not want to see him go through that experience again. We reassure them that we will keep him on the ventilator and continue with sedation medications to keep him comfortable. Precedex increases to 0.9 mcg/kg/hr and Propofol to 40mcgs/kg/min with boluses as needed. Fentanyl continues at 250mcg/hr. Patient is able to follow simple commands and seems to be nodding 'yes' appropriately to questions. Plan for starting chemotherapy today. Exam Vital Signs Vital Sign - Last Date Time Temp Pulse Resp B/P Pulse Ox O2 Delivery O2 Flow Rate FiO2 04/13/17 04:21 76 95/33 90 40 04/13/17 03:39 36.8 14 Mechanical Ventilator Intake and Output 04/12/17 04/12/17 04/13/17 Cumulative From/Thru 15:00 23:00 07:00 04/03/17 07:34 - 04/12/17 18:32 Intake Total 1819 ml 29090 ml Output Total 7330 ml 45120 ml Balance -5511 ml 32834 ml Intake Oral 0 ml IV Total 1010 ml 20002 ml Tube Feeding 1407 ml TPN/PPN 809 ml 5565 ml Packed Cells 351 ml Tube Irrigant 480 ml Output Urine Total 650 ml 18582 ml Gastric Drainage Total 80 ml 1015 ml Drainage Total 6600 ml 6600 ml # Bowel Movements 0 Exam Gen: Intubated and sedated young man, pale, cachetic, opens his eyes intermittently and nods his head appropriate to yes/no questions. No acute distress. HEENT: Oral endotracheal tube and oral gastric tube in place and appear patent. Cardio: Regular rate and rhythm with no murmurs rubs or gallops. Resp: diminished in bilateral lower lung irwin with scattered rales. Abdomen: moderately distended and firm to palpation compared to exam after the paracentesis yesterday, hypoactive bowel sound, no appreciable tenderness to palpation. Extremities: Warm to the touch, moderate pitting edema in the bilateral lower extremities up to mid tibia. Skin: pale, dry and intact. No skin rash noted. Moderate serosanguineous drainage from the right inguinal access. No drainage noted at the paracentesis sites. Neuro: CN difficult to assess in this intubated and sedated patient. IVs and Medications Medications Reviewed: Medications were reviewed in detail Lab and Diagnostics Result Diagram: 04/13/17 0415 04/13/17 0415 X-Rays, CTs and MRIs CT ANGIO CHEST PULMONARY EMBOLISM 1. Slight decrease in severe pulmonary embolic disease with resolution of the previously seen saddle embolus spanning the main pulmonary artery bifurcation. However, significant embolic burden remains bilaterally. 2. Improved aeration of the left lower lobe. Decreased right lower lobe pneumonia. 3. Moderate ascites and severe hepatic metastatic disease. 4. Healing left rib fractures. 5. Gastroesophageal reflux. Dictated by: Landon Noel M.D. on 04/11/2017 at 10:12 CT ABDOMEN AND PELVIS WITH CONTRAST 1. Interval increased amount of large abdominal and pelvic ascites, presumably from peritoneal carcinomatosis. 2. Numerous variably sized hepatic metastases again noted, most confluent in the left hepatic lobe. 3. 6.4 x 5.5 x 3.5 cm left pelvic cystic lesion appears to arise from the left seminal vesicle. 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 4. Small bibasilar mobile pleural effusions, with associated compressive atelectasis. Dictated by: Moisés Brasher M.D. on 04/11/2017 at 10:32 Chest x-ray Stable pulmonary venous engorgement and support devices. Dictated by: New Powers M.D. on 04/03/2017 at 11:01 CT angiogram 1. Multiple, bilateral large pulmonary emboli. 2. Flattening of the cardiac interventricular septum suggesting right heart strain. 3. Hepatic metastatic disease. 4. Findings telephoned to Dr. Nathan Paz on 04/03/17 at 0817 hrs. Dictated by: Louisa Jones MD, PhD on 04/03/2017 at 8:13 Chest x-ray 1. Endotracheal tube and nasogastric tube positioned as described. 2. Mild cardiomegaly and moderate vascular congestion. Dictated by: Tristin Mckenzie M.D. on 04/03/2017 at 9:55 Chest x-ray 1. Endotracheal tube is positioned at the thoracic inlet. 2. Mild cardiomegaly and vascular congestion is similar to the prior study. Dictated by: Tristin Mckenzie M.D. on 04/03/2017 at 10:03 US ABDOMEN IMPRESSION: 4 quadrant mild ascites noted, growing mass lesions throughout the liver parenchyma. Nonvisualization of the left kidney due to overlying bowel gas and inability of the patient to fully cooperate with positioning and breath holding. Dictated by: Donnie Harrington M.D. on 04/10/2017 CT ANGIO CHEST PULMONARY EMBOLISM IMPRESSION: 1. Slight decrease in severe pulmonary embolic disease with resolution of the previously seen saddle embolus spanning the main pulmonary artery bifurcation. However, significant embolic burden remains bilaterally. 2. Improved aeration of the left lower lobe. Decreased right lower lobe pneumonia. 3. Moderate ascites and severe hepatic metastatic disease. 4. Healing left rib fractures. 5. Gastroesophageal reflux. Dictated by: Landon Noel M.D. on 04/11/2017 CT ABDOMEN AND PELVIS WITH CONTRAST IMPRESSION: 1. Interval increased amount of large abdominal and pelvic ascites, presumably from peritoneal carcinomatosis. 2. Numerous variably sized hepatic metastases again noted, most confluent in the left hepatic lobe. 3. 6.4 x 5.5 x 3.5 cm left pelvic cystic lesion appears to arise from the left seminal vesicle. 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 4. Small bibasilar mobile pleural effusions, with associated compressive atelectasis. Dictated by: Moisés Brasher M.D. on 04/11/2017 Additional Diagnostics PROCEDURE: US ABDOMEN FINDINGS: Liver: Liver is enlarged in size and heterogeneous in echotexture with multiple hepatic mass lesions previously identified again seen, having enlarged in size from the comparison ultrasound 03/07/17 and the largest measures up to 5.5 x 5.0 x 4.3 cm. Gallbladder: The gallbladder watts just above the upper limits of normal at 3.1 mm, and appears to contain sludge. A small amount of adjacent free fluid can be seen. Biliary ducts: Intrahepatic bile ducts are non-dilated. Extrahepatic bile duct caliber measures 3.5 mm. Normal is 6-7 mm or less in diameter, or 10 mm or less post-cholecystectomy. Pancreas: Visualized portions of the pancreas are sonographically normal. Spleen: Spleen is normal in size and homogeneous in echotexture. Kidneys: The right kidney is normal in size and echotexture. Right kidney measures 16.3 cm long; left kidney could not be seen. No solid masses. Aorta: Visualized aorta is normal in caliber at less than 3 cm. Iliacs: Proximal common iliac arteries are normal in caliber at less than 2.5 cm. IVC: Intrahepatic inferior vena cava is patent. Miscellaneous: There is mild for quadrant abdominal free fluid. IMPRESSION: 4 quadrant mild ascites noted, growing mass lesions throughout the liver parenchyma. Nonvisualization of the left kidney due to overlying bowel gas and inability of the patient to fully cooperate with positioning and breath holding. Dictated by: Donnie Harrington M.D. 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 Hospital Day 11. #. Acute Hypoxemic respiratory failure, on mechanical ventilation since April 03. - Likely is multifactorial with the pneumonia, pulmonary embolism, and mucous plugging. S/p bronchoscopy x2. - Currently on pressure control ventilation. - Following the removal of 6 L ascitic fluid yesterday, his O2 requirements have decreased and he appears more comfortable. Will continue to assess daily for vent liberation.Will continue with the current vent setting while starting chemotherapy. Patient will likely not survive once extubated given his critically ill condition and would require large doses of opioids to maintain comfort. - Continuous sedation with fentanyl, precedex and propofol with daily awakening trial and SBT. We need to keep him sedated so he can tolerate the ventilation. #. Sepsis due to left lower lobe MSSA pneumonia, new and improved. - Appears to be methicillin-sensitive Staphylococcus aureus, confirmed by bronch washing x2. - WBC trending down and no fever for 2 days. - Appreciate Dr. Goldberg's input. - Per Dr. Goldberg's recommendations, will continue with empirical antibiotic with Ertapenem, which has good activity against MSSA and provides some broader spectrum coverage for aspiration type pneumonia. Day #4 on Ertapenem. - No other apparent source of infection. The first ascitic fluid analysis showed 343 white cells in the peritoneal fluid, 50% were polys, so this does not meet the standard criteria for bacterial peritonitis. Culture shows no growth x48 hours. - UA on 04/11/17 was negative for infection. #. Acute bilateral massive pulmonary embolism with obstructive shock, POA, active. - RV pressure overload on echo but no radiographic resolution of his extensive bilateral PE's despite EKOS and systemic anticoagulation with heparin and now argatroba. - Possible this is not all thrombosis but might have some degree of tumor emboli given extent of hepatic involvement. - Systemic thrombolysis not an option given his history of Gastric tumor and recent GI bleeds requiring transfusion. Surgical thrombectomy is also not a consideration given his grim primary diagnosis. - Continue with Argatroban drip and monitor PTT level. #. Abdominal ascites, new and active. - Likely a reflection of his elevated RV pressure and hypoalbuminemia along with his tumor involvement. - First paracentesis removed 1600ml on 04/10/17 and second one removed 6500ml on 04/12/17. Intra-abdominal pressure is 14 today. - 50gms Albumin replacement given yesterday and 25gms last night to support BP after large volume paracentesis. Continue to monitor BP. - Studies of the ascitic fluid from the first paracentesis on 04/10/17 showed that the SAAG is 0.8, consistent with an exudative type ascites. - Will consider repeating therapeutic large volume paracentesis repeated as needed #. Hyperbilirubinemia, new and active. - LFTs continue to be elevated, likely secondary to hepatic metastases. - Abdominal U/S and abdominal/pelvis CT showed growing mass lesions throughout the liver parenchyma. #. Metastatic liver cancer due to poorly differentiated adenocarcinoma, active. - CT abd/pelvis on 04/11/17 revealed numerous variably sized hepatic metastases, most confluent in the left hepatic lobe. - Given the rapid progression of his adenocarcinoma, it is reasonable to proceed with chemotherapy. His family has decided to begin chemotherapy and have been full and repeatedly informed of the significant risks for catastrophic complications for which there may be no effective treatment. In the event of a cardiac arrest, he is now DNAR. - Starting FOLFOX today per Oncology. Treatment would be largely palliative and fraught with multiple potential catastrophic complications. Will continue to monitor him closely on the ventilator. - We discussed with Palliative Care about adjunct pain medication to the opioids , including Decadron. Patient will get 10mg of Decadron as a part of his chemo antiemetics today and we will monitor his symptoms. Will consider daily doses of Decadron if he tolerates it well. Other medical issues will be managed by the primary care team: #. Constipation. #. Malnutrition. #. Anasarca, new and active. #. Acute iron deficiency anemia. #. Bilateral popliteal DVT, POA and active. Patient is on PPO BID for GI prophylaxis. He is on Argatroban ggt for PE, which is therapeutic. Pain Evaluation: Adequate Pain Control GI Prophylaxis: Proton Pump Inhibitor VTE Prophylaxis: Other (Argatroban ggt) Resuscitation Status: DNR/DNI:Do Not Resuscitate/Intubate (max support but DNR) Mary Bourgeois DO Apr 13, 2017 08:21
--- NOTE | 2017-04-13 10:27 | PCM.PHAPRO ---
Progress TPN I. Fluid state Ascites, anasarca, albumin 2.3, with flat weight trend. Likely intravascularly dry. p/ Consider concentrating TPN II. Chem Lytes WNL, without concerning trends BUN/Scr ratio noted III. Glucose Remains <150 w/o exogenous insulin IV. 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 PARENTERAL NUTRITION ORDERS 01 11- Standard Hang Time: 2100 Substrates Total kcal: 1600 AMINO ACIDS 120 g DEXTROSE 300 g Total Volume (mL): 1600 LIPIDS 10 g Sterile Water for Injection mL To Infuse Over (hrs): 24 Total Volume 1600 mL At at a rate of (mL/hr): 67 Additives Sodium Chloride 80 mEq "typical" daily requirements Sodium Acetate 40 mEq Sodium 50-120mEq Potassium Chloride 50 mEq Potassium 60-120mEq Potassium Phosphate 40 mEq Phosphate 20-40mEq Calcium Gluconate 9.3 mEq Magnesium 8-32mEq Magnesium Sulfate 12 mEq Calcium 9-22mEq Acetate* 80-120mEq Chloride* 80-120mEq Regular Insulin units *Depending on acid-base status Famotidine mg Multivitamins 1 std dose Insulin Regimen Trace Elements 1 std dose none Thiamine mg Regular Low Intensity Subcut Folic Acid mg Regular Medium Intensity Subcut Ascorbic Acid mg Regular High Intensity Subcut Regular Insulin Infusion Other: Special Instructions: To be infused via central line only. Joshua Floyd Pharm D Apr 13, 2017 10:27
[2017-04-13] MEDS ORDERED: Dexamethasone 10 mg/mL Inj IV ONE (10:30)
[2017-04-13] MEDS ORDERED: Ondansetron 2 mg/mL 2 mL Inj IVPUSH ONE (11:15)
[2017-04-13] MEDS ORDERED: OXALIPLATIN IV ONE (11:30)
[2017-04-13] MEDS ORDERED: DEXTROSE 5% IV ONE ×2 (11:30)
[2017-04-13] MEDS ORDERED: LEUCOVORIN IV ONE (11:30)
--- NOTE | 2017-04-13 12:07 | PCM.PALLBR ---
Palliative Care Recommendation Summary: DISEASE PROGRESSION/EVIDENCE OF DECLINE: rapidly progressive gastric adenoCA SYMPTOM BURDEN: overwhelming-critically ill FAMILY GOALS: 1. Family wants to know all facts about his illness and prognosis to better guide their decisions. After detailed discussion with oncologist/pulmonary patient safety tech and [facility] on 04/12, family elected to proceed with chemotherapy now, rather than w/d of care. 2. Family describes pt as "fighter", "survivor" but also not likely to be comfortable with debility 3. Would comfort care be more important than being awake and alert? Family has a strong goal to get him off vent so he can verbalize his opinion and also so they can communicate their love. Family focused on getting him off vent/off sedation. PALLIATIVE CARE COUNSELIN. on 04/12 reviewed need for sedation on vent. 2. [place]ing of surrogacy/decision making 3. Challenges of prognostication--family with many questions re: "what if" 4. Recognizing terminal nature of his malignancy--Dr. Suazo and Dr. Vega reiterated this. 5. Prognosis: Dr. Suazo indicated treatment likely to buy some time but in matter of months DPOA/Advanced Directives/POLST: Reviewed code status and after conference family agreed to DNR but with maintenance of aggressive interventions up to that level. On 04/13, Pulmonary Team asked [facility] to advise on use of dexamethasone and/ or any other non-opiate medications that can be used to help pt with pain and being more awake as they get ready to try to extubate him. Recommendations: 1. Following chemotherapy, give 8mg dexamethasone IV q AM. Goal: to alleviate liver capsule tension, edema of throat/tracheal area. Help with wakefulness in preparation for extubation. Watch for increased agitation/hallucination due to steroids. 2. Consider ketamine, starting dose 5-10mg po QID. Monitor BPs, should be normal range before starting ketamine. Record baseline pain score, sedation rating, blood pressure, heart rate and respiratory rate before the first dose of ketamine is given. Record pain score, sedation rating, blood pressure, heart rate and respiratory rate one hour after the first dose (or any dose increase) of ketamine is given then every 2 hours x 2 and then every 4 hours until stable dose is achieved. Contact the prescriber if blood pressure increases to 30 mmHg above baseline, if pulse increases to 20 bpm above baseline or rises above 100 bpm, if respiratory rate decreases to less than 10 breaths per minute or if excessive drowsiness develops. Ketamine may restore a patients opioid sensitivity and lead to opioid toxicity (respiratory depression). The palliative care provider may choose to reduce the opioid dose and/or change from long-acting to short-acting dosage forms when ketamine is started. Common side effect is dysphoria/hallucinations. Use low dose haldol to manage. Additional Medical Diagnoses with primary management by Hospitalist team include : #. Acute Hypoxemic respiratory failure, on mechanical ventilation since April 03 active. - Continuous sedation with fentanyl, precedex and propofol with daily awakening trial and SBT. We need to keep him sedated so he can tolerate the ventilation. #. Sepsis due to left lower lobe MSSA pneumonia, new and improved. - Appears to be methicillin-sensitive Staphylococcus aureus, confirmed by bronch washing x2. - Per Dr. Goldberg's recommendations, will continue with empirical antibiotic with Ertapenem, which has good activity against MSSA and provides some broader spectrum coverage for aspiration type pneumonia. Day #4 on Ertapenem. - No other apparent source of infection. #. Acute bilateral massive pulmonary embolism with obstructive shock, POA, active. - Systemic thrombolysis not an option given his history of Gastric tumor and recent GI bleeds requiring transfusion. Surgical thrombectomy is also not a consideration given his grim primary diagnosis. - Continue with Argatroban drip and monitor PTT level. #. Abdominal ascites, new and active. - Likely a reflection of his elevated RV pressure and hypoalbuminemia along with his tumor involvement. - First paracentesis removed 1600ml on 04/10/17 and second one removed 6500ml on 04/12/17. Intra-abdominal pressure is 14 today. - 50gms Albumin replacement given yesterday and 25gms last night to support BP after large volume paracentesis. Continue to monitor BP. - Studies of the ascitic fluid from the first paracentesis on 04/10/17 showed that the SAAG is 0.8, consistent with an exudative type ascites. - Will consider repeating therapeutic large volume paracentesis repeated as needed #. Hyperbilirubinemia, new and active. - LFTs continue to be elevated, likely secondary to hepatic metastases. - Abdominal U/S and abdominal/pelvis CT showed growing mass lesions throughout the liver parenchyma. #. Metastatic liver cancer due to poorly differentiated adenocarcinoma, active. - CT abd/pelvis on 04/11/17 revealed numerous variably sized hepatic metastases, most confluent in the left hepatic lobe. - Given the rapid progression of his adenocarcinoma, it is reasonable to proceed with chemotherapy. His family has decided to begin chemotherapy and have been full and repeatedly informed of the significant risks for catastrophic complications for which there may be no effective treatment. In the event of a cardiac arrest, he is now DNAR. - Starting FOLFOX today per Oncology. Treatment would be largely palliative and fraught with multiple potential catastrophic complications. Will continue to monitor him closely on the ventilator. - We discussed with Palliative Care about adjunct pain medication to the opioids , including Decadron. Patient will get 10mg of Decadron as a part of his chemo antiemetics today and we will monitor his symptoms. Will consider daily doses of Decadron if he tolerates it well. Patient is on PPO BID for GI prophylaxis. He is on Argatroban ggt for PE, which is therapeutic. Problems: End of Life Preferences DNR-- based on discussion with family. --severity of illness Goals of Care Decision to give chemo a try/continue aggressive intervention Resuscitation Status Resuscitation Status: DNR/DNI:Do Not Resuscitate/Intubate (max support but DNR) Total time 35 minutes; >50% face to face with patient and/or family, providing counselling regarding plans and recommendations, and in care coordination with his/her medical teams. Palliative Brief Note Date of Service Apr 13, 2017 . 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 When his DVTs were discovered earlier, he was placed on Lovenox due to but it was held for 2 days for a liver biopsy about 2 weeks ago, and again on DOA (04/03) for PICC line placement for chemotherapy. On admission, a stat echocardiogram showed markedly dilated right ventricle with depressed right ventricular function. The patient was intubated for acute respiratory failure and he was immediately taken for EKOS catheter directed thrombolytic therapy. Hospital Course: Has been difficult with ongoing ventilation and critical care support in the CCU subsequently. He has been evaluated by ID and is on antibiotics due to MSSA in bronch washings and leukocytosis. Complicating issues include massive tense ascites, RHF, ileus and he is on TPN for nutritional support. Repeat CT (04/11) scan found decreased in clot burden with resolution of saddle emboli but significant distal massive ascites and extensive liver metastases. Palliative Care asked to meet with family, oncologist Dr. Suazo and Pulmonary Supervisor Bonding Dr. Vega to review options in a conference together on 04/12. Prior to this illness he was an athletic healthy individual. His symptoms began around 6 months ago. He had mentioned increasing back pain in the few months prior to admission.He had also lost about 15-20#. Dr. Lo met with mother and daughter of pt at bedside to offer support, and explain use of dexamethasone. She also met with Pulmonary Supervisor Bonding and his team to discuss use of both dexamethasone and ketamine. Ketamine to be considered post-extubation. Dexamethasone may be started over the weekend at the discretion of the Hospitalist and pulmonary teams. EXAM: Gen: Intubated and sedated young man, pale, cachetic, opens his eyes intermittently and nods his head appropriate to yes/no questions per nursing notes and family. Currently sedated per this exam. No acute distress. HEENT: Oral endotracheal tube and oral gastric tube in place and appear patent. Cardio: Regular rate and rhythm with no murmurs rubs or gallops. Resp: diminished in bilateral lower lung irwin with scattered rales. Abdomen: moderately distended and firm to palpation compared to exam after the paracentesis yesterday, hypoactive bowel sound, no appreciable tenderness to palpation. Extremities: Warm to the touch, moderate pitting edema in the bilateral lower extremities up to mid tibia. Skin: pale, dry and intact. No skin rash noted. Neuro: sedated currently Lab and Diagnostics 04/13/17 0415 Tamie Lo MD Apr 13, 2017 12:07 Tamie Lo MD Apr 13, 2017 12:07
--- NOTE | 2017-04-13 12:32 | NUR ---
chemo admin: All pre-meds administered per orders. Pt family educated regarding chemo precautions and information given regarding chemo medications to family. Blue lumen of 3l picc checked for blood return, and this was confirmed. Leucovorin and Oxalaplatin started concurrently per orders after dosing calculations confirmed. No immediate side effects noted. Primary RN told of side effects to monitor for. Primary nurse to monitor until chemo to be taken down in approx 2 hours.
--- NOTE | 2017-04-13 12:41 | PROG NOTE ---
[address] [address] PROGRESS NOTE PATIENT: DREA PELAYO : 1990 MR#: [id number] ADMIT: 04/03/2017 JOB ID: [id number] DATE: 04/13/2017 SUBJECTIVE: This patient is a 27-year-old gentleman with metastatic adenocarcinoma, likely gastric in origin, hospitalized since April 03 with massive pulmonary embolism and respiratory failure. He had heparin resistance and is now on argatroban. CT imaging, in addition to showing severe pulmonary embolic disease, also showed severe hepatic metastatic disease, moderate ascites, and peritoneal carcinomatosis. There was also a 6.4 cm left pelvic cystic lesion arising from the left seminal vesicle. He remains intubated, currently on 40% FiO2. He is sedated. His mother was present at the bedside today. He has had cultures positive for Staphylococcus aureus, and is now on ertapenem 1000 mg IV daily. He is also on nutritional support with TPN. OBJECTIVE: Vitals: T 36.7, P 73, R 20, BP 101/38, O2 saturation 93% on FiO2 40% on mechanical ventilator. HEENT: Conjunctivae slightly pale. Mucous membranes slightly dry. He is intubated and sedated. Nodes: No adenopathy in the neck or axilla. Chest: Coarse rhonchi bilaterally. Slightly decreased at the left base. Cardiac: Regular rate and rhythm with normal S1, S2. Abdomen: Soft. Active bowel tones. Extremities: 2-3+ bilateral lower extremity edema. Trace distal pulses. LABORATORY DATA: WBC 18.7 with 87% neutrophils, hemoglobin 9.0, hematocrit 27.8%, platelets 435,000. Sodium 143, potassium 4.5, BUN 60, creatinine 0.75, glucose 132. AST 247, ALT 68, alkaline phosphatase 448, total bilirubin 5.8, total protein 4.8, albumin 2.5. CEA 9.3. CA 19-9 of 71. ASSESSMENT AND PLAN: Metastatic adenocarcinoma, likely gastric in origin: Testing was negative for HER2. After extensive discussion with Dr. Suazo, the family has agreed to treatment with FOLFOX chemotherapy. He will receive his initial FOLFOX today, which will include oxaliplatin 85 mg/m2 for a total dose of 140 mg oxaliplatin IV over 2 hours concurrent with leucovorin 665 mg IV over 2 hours. Bolus 5-fluorouracil will be held, but he will receive infusional 5-fluorouracil at a dose of 2500 mg/m2 for a dose-reduced total of 4000 mg 5- fluorouracil IV continuous infusion over 46 hours. Disconnect infusion in two days, 24 hours later, I would recommend beginning a course of G-CSF 480 mcg subcutaneously to reduce risk of neutropenia, which could further complicate his infection. The patient's testing for Peutz-Jeghers syndrome is still pending. We will continue to monitor through his course of treatment. His condition remains critical. cc: Arvin Huizar DO
[2017-04-13] MEDS: SODIUM CHLORIDE IV SCH ×2 (13:14)
[2017-04-13] MEDS: ARGATROBAN IV SCH ×2 (13:14)
[2017-04-13] MEDS: OLANZapine Zydis ODT 5 mg Tablet PO SCH ×2 (14:35→20:32)
[2017-04-13] MEDS: FLUOROURACIL IV SCH (14:52)
[2017-04-13] MEDS: DEXTROSE 5% IV SCH (14:52)
--- NOTE | 2017-04-13 15:01 | PCM.PNMED ---
Subjective Date of Service Apr 13, 2017 Subjective 27 yo man with recent diagnosis of gastric adeno CA admitted with massive PE and respiratory failure. Has had trial of EKOS 04/03 but repeat CTPA 04/05showed no resolution of his bilat PE's. Restless over night with attempts to sit up and fling his legs out of bed. Now well sedated afer bolus of propofol in addition to precedex and fentanyl. His FiO2 has been weaned to 0.4 from 0.6. Had repeat CTPA and CT of Abd/Pelvis 04/11 which was personally reviewed showed NO resolution of extensive thrombus in both main Pulmonary arteries and nearly all branches, especially those in the RLL and RML. In addition there appears to be progressive disease in his liver with near total replacement of the left lobe with masses. There was increased ascites and evidence for peritioneal carcinomatosis. On 04/11, I spoke at length with Curtis's mother, sister, and father about the results of the CT's and the events of the last 24 hours. We discussed possible options for going forward and I essentially presented 3 different paths. First, I offered that we could continue fully aggressive support, as we are currently, with the expectation that he will eventually of his rapidly growing tumor, possibly within days or a couple weeks. The next option centers on administration of chemotherapy directed at his disseminated tumor along with a jermaine description of the multiple catastrophic complications that could occur as a result and, for which, we would have no effective treatment. These include gastric rupture, hepatic failure, severe GI hemorrhage, tumor lysis, renal failure, ARDS, sepsis, etc. Finally, we discussed withdrawal of Curtis's ventilator and shifting focus to comfort care with the expectation that he would within hours to a few days. I've spoken with Curtis's oncologist, Dr. Suazo, who has offered to meet with me and the family later today to give them a full understanding of the choices and likely outcomes. Palliative Care has kindly agreed to take part in the discussion as well. I also offered to seek transfer of Curtis to a tertiary center such as if the family wishes to explore that however I told them that I doubted that could offer any additional options that might alter the final outcome. On 04/12, we had another family meeting to discuss prognosis and formulate a plan. Dr. Suazo, Dr. Dr. Christelle Calvo met with the family along with nursing staff. We again presented the above 3 options and answered all questions. In addition, we asked the family to consider whether it was appropriate for Curtis to continue on Full Code status. After several hours deliberation, the family reported to me, Dr. Calvo, Dr. Bourgeois and staff that they had decided that 1) they would like for Curtis to begin chemo and 2) his code status should change to DNAR. We repeated the large volume therapeutic paracentesis and removed 6 L thin bile stained ascitic fluid without complications. Today he is well sedated. I spoke with father and mother at Curtis's bedside and reviewed the plan of care which includes adequate sedation such that he will tolerate intubation for as long as it is required. FOLFOX with 5-FU infusion has been begun. Exam Vital Signs Vital Sign - Last Date Time Temp Pulse Resp B/P Pulse Ox O2 Delivery O2 Flow Rate FiO2 04/13/17 12:07 76 115/76 96 40 04/13/17 12:00 36.7 21 Mechanical Ventilator Intake and Output 04/12/17 04/12/17 04/13/17 Cumulative From/Thru 15:00 23:00 07:00 04/03/17 07:34 - 04/12/17 18:32 Intake Total 1819 ml 01735 ml Output Total 7330 ml 01326 ml Balance -5511 ml 75939 ml Intake Oral 0 ml IV Total 1010 ml 83780 ml Tube Feeding 1407 ml TPN/PPN 809 ml 5565 ml Packed Cells 351 ml Tube Irrigant 480 ml Output Urine Total 650 ml 67455 ml Gastric Drainage Total 80 ml 1015 ml Drainage Total 6600 ml 6600 ml # Bowel Movements 0 Exam Cachectic young man resting comfortably on vent Lungs Good air movement anteriorly, crackles at both posterior bases. NO wheezes CV RRR, no m/g/r Abd Slightly distended, NO BTs, not apparently tender Ext Severe muscle wasting, 3+ LE edema to knee Skin Jaundice Neuro Moves all 4 purposefully, Opens eyes to loud voice. Nods to questions. IVs and Medications Medications Reviewed: Medications were reviewed in detail Lab and Diagnostics Result Diagram: 04/13/175 04/13/17414 X-Rays, CTs and MRIs CT ANGIO CHEST PULMONARY EMBOLISM 1. Slight decrease in severe pulmonary embolic disease with resolution of the previously seen saddle embolus spanning the main pulmonary artery bifurcation. However, significant embolic burden remains bilaterally. 2. Improved aeration of the left lower lobe. Decreased right lower lobe pneumonia. 3. Moderate ascites and severe hepatic metastatic disease. 4. Healing left rib fractures. 5. Gastroesophageal reflux. Dictated by: Landon Noel M.D. on 04/11/2017 at 10:12 CT ABDOMEN AND PELVIS WITH CONTRAST 1. Interval increased amount of large abdominal and pelvic ascites, presumably from peritoneal carcinomatosis. 2. Numerous variably sized hepatic metastases again noted, most confluent in the left hepatic lobe. 3. 6.4 x 5.5 x 3.5 cm left pelvic cystic lesion appears to arise from the left seminal vesicle. 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 4. Small bibasilar mobile pleural effusions, with associated compressive atelectasis. Dictated by: Moisés Brasher M.D. on 04/11/2017 at 10:32 Chest x-ray Stable pulmonary venous engorgement and support devices. Dictated by: New Powers M.D. on 04/03/2017 at 11:01 CT angiogram 1. Multiple, bilateral large pulmonary emboli. 2. Flattening of the cardiac interventricular septum suggesting right heart strain. 3. Hepatic metastatic disease. 4. Findings telephoned to Dr. Nathan Paz on 04/03/17 at 0817 hrs. Dictated by: Louisa Jones MD, PhD on 04/03/2017 at 8:13 Chest x-ray 1. Endotracheal tube and nasogastric tube positioned as described. 2. Mild cardiomegaly and moderate vascular congestion. Dictated by: Tristin Mckenzie M.D. on 04/03/2017 at 9:55 Chest x-ray 1. Endotracheal tube is positioned at the thoracic inlet. 2. Mild cardiomegaly and vascular congestion is similar to the prior study. Dictated by: Tristin Mckenzie M.D. on 04/03/2017 at 10:03 US ABDOMEN IMPRESSION: 4 quadrant mild ascites noted, growing mass lesions throughout the liver parenchyma. Nonvisualization of the left kidney due to overlying bowel gas and inability of the patient to fully cooperate with positioning and breath holding. Dictated by: Donnie Harrington M.D. on 04/10/2017 CT ANGIO CHEST PULMONARY EMBOLISM IMPRESSION: 1. Slight decrease in severe pulmonary embolic disease with resolution of the previously seen saddle embolus spanning the main pulmonary artery bifurcation. However, significant embolic burden remains bilaterally. 2. Improved aeration of the left lower lobe. Decreased right lower lobe pneumonia. 3. Moderate ascites and severe hepatic metastatic disease. 4. Healing left rib fractures. 5. Gastroesophageal reflux. Dictated by: Landon Noel M.D. on 04/11/2017 CT ABDOMEN AND PELVIS WITH CONTRAST IMPRESSION: 1. Interval increased amount of large abdominal and pelvic ascites, presumably from peritoneal carcinomatosis. 2. Numerous variably sized hepatic metastases again noted, most confluent in the left hepatic lobe. 3. 6.4 x 5.5 x 3.5 cm left pelvic cystic lesion appears to arise from the left seminal vesicle. 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 4. Small bibasilar mobile pleural effusions, with associated compressive atelectasis. Dictated by: Moisés Brasher M.D. on 04/11/2017 Additional Diagnostics PROCEDURE: US ABDOMEN FINDINGS: Liver: Liver is enlarged in size and heterogeneous in echotexture with multiple hepatic mass lesions previously identified again seen, having enlarged in size from the comparison ultrasound 03/07/17 and the largest measures up to 5.5 x 5.0 x 4.3 cm. Gallbladder: The gallbladder watts just above the upper limits of normal at 3.1 mm, and appears to contain sludge. A small amount of adjacent free fluid can be seen. Biliary ducts: Intrahepatic bile ducts are non-dilated. Extrahepatic bile duct caliber measures 3.5 mm. Normal is 6-7 mm or less in diameter, or 10 mm or less post-cholecystectomy. Pancreas: Visualized portions of the pancreas are sonographically normal. Spleen: Spleen is normal in size and homogeneous in echotexture. Kidneys: The right kidney is normal in size and echotexture. Right kidney measures 16.3 cm long; left kidney could not be seen. No solid masses. Aorta: Visualized aorta is normal in caliber at less than 3 cm. Iliacs: Proximal common iliac arteries are normal in caliber at less than 2.5 cm. IVC: Intrahepatic inferior vena cava is patent. Miscellaneous: There is mild for quadrant abdominal free fluid. IMPRESSION: 4 quadrant mild ascites noted, growing mass lesions throughout the liver parenchyma. Nonvisualization of the left kidney due to overlying bowel gas and inability of the patient to fully cooperate with positioning and breath holding. Dictated by: Donnie Harrington M.D. 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 IMP Resp failure Multifactorial with massive PE, LLL PNA and marked abdominal distension all contributing. There has been NO radiographic resolution of his extensive bilateral PE's despite EKOS and systemic anticoagulation with heparin and argatroban now. His tense ascites has rapidly reaccumulated and while his FiO2 has been decreased over night I doubt he would survive more than a few hours once extubated as he is so weak, septic, hypoxemic and would require large doses of opiates and probably benzodiazepines to maintain comfort. Day #4 empiric ertapenem for LLL PNA. Following the removal of 6 L ascitic fluid 04/12 , his O2 requirements decreased and he appears more comfortable. Will continue to assess daily for vent liberation. PE Bilat Massive PE. Had RV pressure overload on echo but no improvement after EKOS and anticoagulation on followup CTs. Possible this is not all thrombosis but instead some degree of tumor emboli given extent of hepatic involvement. He is undoubtably thrombophilic due to his advance gastric cancer. Systemic thrombolysis not an option given his history of Gastric tumor and recent GI bleeds requiring transfusion. An attempt at catheter directed therapy with EKOS has failed and surgical thrombectomy is not a consideration given his primary diagnosis and exceeding grim prognosis based on that. Gastric CA Oncology is waiting for HER 2 status in order to determine whether Herceptin would be an option along with FOLFOX. His family has decided to begin chemotherapy and have been full and repeatedly informed of the significant risks for catastrophic complications for which there may be no effective treatment. In the event of a cardiac arrest, he is now DNAR. Ascites A reflection of his elevated RV pressure and hypoalbuminemia along with tumor involvement. Improved after 6 L removed 04/12. Given total 75 gms albumin over night. REC FOLFOX per Oncology, will complete 5-FU infusion 04/15 Filgrastim per Oncology once chemo completed Abx per ID Repeat therapeutic large volume paracentesis repeated as needed Continuous sedation with fentanyl, precedex and propofol with daily awakening trial and SBT. Will add Zydis 5 q 12 for additional sedation Decadron for antiemesis and adjunctive pain treatment TPN Argatroban GI prophylaxis GI Prophylaxis: Proton Pump Inhibitor VTE Prophylaxis: Other (Argatroban ggt) Resuscitation Status: DNR/DNI:Do Not Resuscitate/Intubate (max support but DNR) Time spent 45 minutes critical care exclusive of shared time and procedures Dony Vega MD Apr 13, 2017 15:01 #. Hyperbilirubinemia, new and active. - LFTs continue to be elevated, likely secondary to hepatic metastases. - Abdominal U/S and abdominal/pelvis CT showed growing mass lesions throughout the liver parenchyma. #. Metastatic liver cancer due to poorly differentiated adenocarcinoma, active. - CT abd/pelvis on 04/11/17 revealed numerous variably sized hepatic metastases, most confluent in the left hepatic lobe. - Given the rapid progression of his adenocarcinoma, it is reasonable to proceed with chemotherapy. His family has decided to begin chemotherapy and have been full and repeatedly informed of the significant risks for catastrophic complications for which there may be no effective treatment. In the event of a cardiac arrest, he is now DNAR. - Starting FOLFOX today per Oncology. Treatment would be largely palliative and fraught with multiple potential catastrophic complications. Will continue to monitor him closely on the ventilator. - We discussed with Palliative Care about adjunct pain medication to the opioids , including Decadron. Patient will get 10mg of Decadron as a part of his chemo antiemetics today and we will monitor his symptoms. Will consider daily doses of Decadron if he tolerates it well. Other medical issues will be managed by the primary care team: #. Constipation. #. Malnutrition. #. Anasarca, new and active. #. Acute iron deficiency anemia. #. Bilateral popliteal DVT, POA and active. Patient is on PPO BID for GI prophylaxis. He is on Argatroban ggt for PE, which is therapeutic. GI Prophylaxis: Proton Pump Inhibitor VTE Prophylaxis: Other (Argatroban ggt) Resuscitation Status: DNR/DNI:Do Not Resuscitate/Intubate (max support but DNR) Time spent 45 minutes critical care exclusive of shared time and procedures Dony Vega MD Apr 13, 2017 15:01
--- NOTE | 2017-04-13 15:04 | PROCED ---
[address] [address] PROCEDURE NOTE PATIENT: DREA PELAYO : 1990 MR#: [id number] ADMIT: 04/03/2017 JOB ID: [id number] DATE OF SERVICE: 04/12/2017 PULMONARY CRITICAL CARE PROCEDURE NOTE: PROCEDURE: Large volume therapeutic paracentesis. SURGEON: Dony Vega M.D. PREOPERATIVE DIAGNOSIS(ES): Tense malignant ascites. POSTOPERATIVE DIAGNOSIS(ES): Tense malignant ascites. PROCEDURE SUMMARY: After written informed consent from the patient's adult designated medical power of railroad track repair supervisor, ultrasound-guided paracentesis was performed. A time-out was held. Boat Cleaning Supervisor view of the right lower quadrant was obtained with real time two dimensional ultrasound. A large area of fluid was identified and marked. This area was heavily scrubbed with chlorhexidine solution for more than 1 minute and then sterilely draped. Using full barrier precautions and sterile conditions, 5-Bangladeshi catheter was placed through the abdominal wall into a pocket of fluid and the needle withdrawn. The catheter was then attached to fluid collection system and suction. This was used to remove 6 L of darkly bilirubin stained thin fluid. A total of 6 L was removed without difficulty or complication. Fluid was not sent for analysis. The catheter was then withdrawn and a sterile dressing applied. The patient's condition following procedure critically ill on mechanical ventilation as before but he appeared to tolerate the specific procedure itself quite well. SPECIMENS: None.
--- NOTE | 2017-04-13 16:47 | NUR ---
Social Work: Continued Discharge Planning/Multidisciplinary Rounds D: Pt discussed in multidisciplinary rounds; the patient remains in CCU, vented. Multiple specialities following the patient including pulmonology, ID, oncology and the CCU team. Pt to begin chemotherapy. Pt continues on TPN, dietary following. No plans to extubate at this time. A: Pt who remains in CCU status. P: Evolving; [employer] to continue to follow to assess for d/c needs and provide support to the family as needed through the course of pt's hospitalization. Tammy Wilson, [employer]
--- NOTE | 2017-04-13 17:21 | PCM.PNMED ---
Subjective Date of Service Apr 13, 2017 Subjective Mr Malloy is a 27 yo male recently diagnosed with gastric and no carcinoma with metastases to the liver, presented to hospital with saddle pulmonary embolism and respiratory failure. Overnight, FiO2 weaned to 40% with 5 of PEEP. Is able to follow some commands from nursing staff. Appears to be agitated pointing to his endotracheal tube clearly desiring its removal. Blood pressure became hypotensive requiring 25 g of albumin and normal saline boluses with stabilization of hemodynamics. Today he will remain on the ventilator with increase in his sedation to keep him comfortable. Chemotherapy initiation scheduled for today. Exam Vital Signs Vital Sign - Last Date Time Temp Pulse Resp B/P Pulse Ox O2 Delivery O2 Flow Rate FiO2 04/13/17 16:39 75 122/46 95 40 04/13/17 16:00 36.8 20 Mechanical Ventilator Intake and Output 04/12/17 04/12/17 04/13/17 Cumulative From/Thru 15:00 23:00 07:00 04/03/17 07:34 - 04/12/17 18:32 Intake Total 1819 ml 27920 ml Output Total 7330 ml 65929 ml Balance -5511 ml 67362 ml Intake Oral 0 ml IV Total 1010 ml 47572 ml Tube Feeding 1407 ml TPN/PPN 809 ml 5565 ml Packed Cells 351 ml Tube Irrigant 480 ml Output Urine Total 650 ml 21670 ml Gastric Drainage Total 80 ml 1015 ml Drainage Total 6600 ml 6600 ml # Bowel Movements 0 Exam General: Intubated and sedated. Purposeful movement, responding to commands indicating desire to be extubated. HEENT: Normocephalic, atraumatic. Scleral icterus Cardiovascular: Regular rate and rhythm Pulmonary: Bilateral inspiratory/expiratory crackles Abdomen: Distended and tense to palpation Extremities: Lower extremity pitting edema to mid tibia. Bilateral upper extremity hand edema Skin: Warm to palpation, normal turgor Neurological: Intubated and sedated Lab and Diagnostics Result Diagram: 04/13/1741404/13/17414 X-Rays, CTs and MRIs CT ANGIO CHEST PULMONARY EMBOLISM 1. Slight decrease in severe pulmonary embolic disease with resolution of the previously seen saddle embolus spanning the main pulmonary artery bifurcation. However, significant embolic burden remains bilaterally. 2. Improved aeration of the left lower lobe. Decreased right lower lobe pneumonia. 3. Moderate ascites and severe hepatic metastatic disease. 4. Healing left rib fractures. 5. Gastroesophageal reflux. Dictated by: Landon Noel M.D. on 04/11/2017 at 10:12 CT ABDOMEN AND PELVIS WITH CONTRAST 1. Interval increased amount of large abdominal and pelvic ascites, presumably from peritoneal carcinomatosis. 2. Numerous variably sized hepatic metastases again noted, most confluent in the left hepatic lobe. 3. 6.4 x 5.5 x 3.5 cm left pelvic cystic lesion appears to arise from the left seminal vesicle. 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 4. Small bibasilar mobile pleural effusions, with associated compressive atelectasis. Dictated by: Moisés Brasher M.D. on 04/11/2017 at 10:32 Chest x-ray Stable pulmonary venous engorgement and support devices. Dictated by: New Powers M.D. on 04/03/2017 at 11:01 CT angiogram 1. Multiple, bilateral large pulmonary emboli. 2. Flattening of the cardiac interventricular septum suggesting right heart strain. 3. Hepatic metastatic disease. 4. Findings telephoned to Dr. Nathan Paz on 04/03/17 at 0817 hrs. Dictated by: Louisa Jones MD, PhD on 04/03/2017 at 8:13 Chest x-ray 1. Endotracheal tube and nasogastric tube positioned as described. 2. Mild cardiomegaly and moderate vascular congestion. Dictated by: Tritsin Mckenzie M.D. on 04/03/2017 at 9:55 Chest x-ray 1. Endotracheal tube is positioned at the thoracic inlet. 2. Mild cardiomegaly and vascular congestion is similar to the prior study. Dictated by: Tristin Mckenzie M.D. on 04/03/2017 at 10:03 US ABDOMEN IMPRESSION: 4 quadrant mild ascites noted, growing mass lesions throughout the liver parenchyma. Nonvisualization of the left kidney due to overlying bowel gas and inability of the patient to fully cooperate with positioning and breath holding. Dictated by: Donnie Harrington M.D. on 04/10/2017 CT ANGIO CHEST PULMONARY EMBOLISM IMPRESSION: 1. Slight decrease in severe pulmonary embolic disease with resolution of the previously seen saddle embolus spanning the main pulmonary artery bifurcation. However, significant embolic burden remains bilaterally. 2. Improved aeration of the left lower lobe. Decreased right lower lobe pneumonia. 3. Moderate ascites and severe hepatic metastatic disease. 4. Healing left rib fractures. 5. Gastroesophageal reflux. Dictated by: Landon Noel M.D. on 04/11/2017 CT ABDOMEN AND PELVIS WITH CONTRAST IMPRESSION: 1. Interval increased amount of large abdominal and pelvic ascites, presumably from peritoneal carcinomatosis. 2. Numerous variably sized hepatic metastases again noted, most confluent in the left hepatic lobe. 3. 6.4 x 5.5 x 3.5 cm left pelvic cystic lesion appears to arise from the left seminal vesicle. 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 4. Small bibasilar mobile pleural effusions, with associated compressive atelectasis. Dictated by: Moisés Brasher M.D. on 04/11/2017 Additional Diagnostics PROCEDURE: US ABDOMEN FINDINGS: Liver: Liver is enlarged in size and heterogeneous in echotexture with multiple hepatic mass lesions previously identified again seen, having enlarged in size from the comparison ultrasound 03/07/17 and the largest measures up to 5.5 x 5.0 x 4.3 cm. Gallbladder: The gallbladder watts just above the upper limits of normal at 3.1 mm, and appears to contain sludge. A small amount of adjacent free fluid can be seen. Biliary ducts: Intrahepatic bile ducts are non-dilated. Extrahepatic bile duct caliber measures 3.5 mm. Normal is 6-7 mm or less in diameter, or 10 mm or less post-cholecystectomy. Pancreas: Visualized portions of the pancreas are sonographically normal. Spleen: Spleen is normal in size and homogeneous in echotexture. Kidneys: The right kidney is normal in size and echotexture. Right kidney measures 16.3 cm long; left kidney could not be seen. No solid masses. Aorta: Visualized aorta is normal in caliber at less than 3 cm. Iliacs: Proximal common iliac arteries are normal in caliber at less than 2.5 cm. IVC: Intrahepatic inferior vena cava is patent. Miscellaneous: There is mild for quadrant abdominal free fluid. IMPRESSION: 4 quadrant mild ascites noted, growing mass lesions throughout the liver parenchyma. Nonvisualization of the left kidney due to overlying bowel gas and inability of the patient to fully cooperate with positioning and breath holding. Dictated by: Donnie Harrington M.D. 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 Hospital Day 11. #. Massive bilateral pulmonary emboli with obstructive shock, acute. Slowly improving. -Confirmed home dose of Lovenox 80 mg daily, most likely missing intermittent dosing prior to admission -Repeat CT shows unchanged clot burden despite treatment with tPA and EKOS 3, possible this is secondary to tumor emboli -Probable lysis not an option secondary to primary diagnosis of gastric tumor and prognosis -Continue with Argatroban drip, monitor PTT level -Continue to attempt to wean FiO2 #. Acute hypoxic respiratory failure, POA ongoing. -ICU/pulmonology team following greatly appreciated recommendations and treatment direction. - Multiple possibilities including pneumonia, PE, tumor emboli, mucous plugging - Bronchoscopy 2 with removal of mucous plug - Continue pressure control mechanical ventilation. Continue to attempt to wean FiO2 - Continue chest physiotherapy when necessary - Continue with Precedex, attempt to wean off propofol - Sedation vacation successful, though became agitated after being intubated so sedation was increased again #. Pneumonia, not present on admission, improving. -Bronchial washing showed staph aureus, resistant to erythromycin. The patient also has had evidence of left lower lobe collapse likely from secretions. -Discontinued Zosyn, switched to nafcillin - also discontinued -Pro calcitonin continues to trend up though in the setting of liver metastasis unreliable, we will stop following this value -WBC continues to trend down, remains afebrile -ID following, recommendations appreciated -Ertapenem started 04/10/2017 -Bronchoscopy as above -Continue to monitor #. Sepsis secondary to HCAP. Acute and improving. -Most likely MSSA pneumonia, confirmed by bronchoscopy and lavage -CT angio showed bilateral pleural effusions, worsening bibasilar pneumonia pattern, greater on the left than the right. -WBC trending down, afebrile -No longer following Pro calcitonin in the setting of hepatic metastases -Infectious disease following -Antibiotics as above -No vasopressor requirements #. Anasarca, new and active. The patient has significant volume overload from resuscitation. We will continue to monitor and diuresis as able. -1.5 L peritoneal fluid taken off 04/10/2017, additional paracentesis 2016 with 6.5 L taken off -Albumin replacement -Ascitic fluid shows exudate -Urinary output remains adequate -Continue to monitor #. Acute iron deficiency anemia. Stable. - Secondary to hemodilution from aggressive fluid resuscitation. Possibly secondary to GI bleed from malignant gastric ulcers, but no sign of acute bleed at this time. Hb has been stable, so will switch from PPI drip to BID. - PRBCs on hold. Transfuse for HB <8. - Check H&H daily - Protonix 40 mg IV BID - Monitor for signs of acute bleeding #. Bilateral popliteal DVT, POA and active. - Pt diagnosed with bilateral large DVTs 3 weeks ago, placed on Lovenox at home with possible missed doses - Currently therapeutic on Argatroban #. Metastatic liver cancer due to poorly differentiated adenocarcinoma. - Per ICU team - CT abd/pelvis on 04/11/17 revealed numerous variably sized hepatic metastases, most confluent in the left hepatic lobe. - Given the rapid progression of his adenocarcinoma, it is reasonable to proceed with chemotherapy if his family chooses to go that route. However, we discussed the risk of chemo with the family, include but not limited to: 1) bleeding into liver or gut due to tumor necrosis while anticoagulated, 2) severe sepsis in the face of underlying partially treated bacterial infection, 3 ) tumor lysis syndrome, 4) Perforated bowel/stomach - Oncology is waiting for HER 2 status in order to determine whether Herceptin would be an option along with FOLFOX. Treatment would be largely palliative and fraught with multiple potential catastrophic complications. - Multidisciplinary meeting with Oncology and Palliative Care to define goals of care and code status. #. Hyperbilirubinemia, new and active. - Bilirubin and Alkaline phos trending up; scleral icterus on exam; likely secondary to hepatic metastases. - Abdominal and pelvis CT shows growing mass lesions throughout liver parenchyma #. Constipation. Present on admission Ongoing -Refractory to all multiple enemas including enema with with FMS -Refractory to suppository -Continue aggressive bowel regimen #. Malnutrition. Ongoing -Nutrition following, TPN started with concentrated formula Dangerous meds include fentanyl drip and propofol. Disposition: Remains intubated sedated ICU status Patient is on PPO BID for GI prophylaxis. He is on Argatroban ggt for PE, which is therapeutic. GI Prophylaxis: Proton Pump Inhibitor VTE Prophylaxis: Other (Argatroban ggt) Resuscitation Status: DNR/DNI:Do Not Resuscitate/Intubate (max support but DNR) Time spent 30 minute Attending Statement Patient has been seen and examined by myself with senior medical writer and agree with above history, physical, assessment and plan. BRICE BROWN DO Apr 13, 2017 17:21 Anna Marino MD Apr 14, 2017 07:09
[2017-04-13] MEDS: TPN Per Pharmacist XX SCH (20:58)
[2017-04-13] MEDS: Total Parenteral Nutrition 1 BAG IV SCH (20:58)
[2017-04-14] VITALS (15 sets, daily range): BP systolic 99–145; BP diastolic 40–84; PULSE 72–88; RESP 17–34; O2SAT 87–99
[2017-04-14] MEDS: Dexmedetomidine 400 mCg/100 mL 400 MCG in IV Premix 1 EACH IV PRN ×5 (01:33→23:58)
[2017-04-14] MEDS: Chlorhexidine 0.12% 15 mL Oral Solution MT SCH ×6 (02:04→20:08)
[2017-04-14] MEDS: fentaNYL 2,500 mCg/250 mL 2,500 MCG in IV Premix 1 EACH IV SCH ×3 (02:05→20:09)
[2017-04-14] MEDS: Propofol Inj 1,000,000 MCG in IV Premix 1 EACH IV PRN ×3 (02:06→22:05)
[2017-04-14] MEDS: Dextrose 10% 1,000 ML IV SCH ×2 (02:06→20:08)
[2017-04-14 04:01] LABS: BASOPHILS % (AUTO) 0.2 % (0-3); EOSINOPHILS % (AUTO) 0 % (0-5); MONOCYTES % (AUTO) 4.8 % (4-12); Mean Corpuscular Hemoglobin 22.9 pg (27.0-35.0); Mean Corpuscular Volume 70.3 fL (81-100); NEUTROPHILS % (AUTO) 90.7 % (40-74); Platelet Count 517 bil/L (150-400)
[2017-04-14 05:06] LABS: Magnesium 2.7 mg/dL (1.6-2.6); Phosphorus 3.7 mg/dL (2.5-4.9)
--- NOTE | 2017-04-14 05:15 | NUR ---
Respiratory/Agitation At beginning of shift, pt desats to 84% on fio2 0.45, pc 20 above peep 5, tachypneic RR 28-32, suctioned prn (thin, small secretions from ETT), RT at bedside, increased fio2 to 0.75, sp02 improved through the night to 96-98%, pt had intermittent restlessness, given prn IV ativan 0.5 mg x 2, on top of current sedation (fentanyl, propofol and precedex gtts) BP stable, TPN ongoing, tmax 38.0 this am, applied cooling measures. argatroban gtt infusing, no s/s of bleeding. bilateral soft wrist restraints on. Father at bedside updated with care for noc.
--- NOTE | 2017-04-14 06:30 | NUR ---
MD Notification Paged Dr. Tucker re: K+ 5.4, awaiting for return call.
[2017-04-14] MEDS: Pantoprazole 4 mg/mL 10 mL Inj IVPUSH SCH ×2 (07:30→16:30)
[2017-04-14] MEDS: OLANZapine Zydis ODT 5 mg Tablet PO SCH ×2 (08:30→21:27)
[2017-04-14] MEDS: [UNRECOGNIZED DRUG - REMARK] XX SCH ×2 (08:30→11:00)
--- NOTE | 2017-04-14 08:33 | PROG NOTE ---
[address] [address] PROGRESS NOTE PATIENT: DREA PELAYO : 1990 MR#: [id number] ADMIT: 04/03/2017 JOB ID: [id number] DATE: 04/14/2017 SUBJECTIVE: The patient is a 27-year-old gentleman with metastatic adenocarcinoma, likely gastric in origin, hospitalized since April 03 with massive pulmonary embolism and respiratory failure. He had heparin resistance and is now on argatroban. CT imaging showed pulmonary emboli, but also severe hepatic metastatic disease, moderate ascites and peritoneal carcinomatosis. He has started chemotherapy with FOLFOX with infusional 5-fluorouracil infusing at this time. He remains intubated, currently on 60% FiO2. He has had blood cultures positive for Staphylococcus aureus, and is on ertapenem 1000 mg IV daily. He had low grade fever over night. He remains on nutritional support with TPN. OBJECTIVE: Vitals: T-max 38.0, P 78, R 17, BP 145/84, O2 saturation 99% on 60% FiO2. HEENT: Conjunctivae pale. Mucous membranes slightly dry. He is intubated. Chest: Clear. No wheezes or crackles at this time. Cardiac exam: Regular rate and rhythm with normal S1, S2. Abdomen is soft. Active bowel tones. Extremities: 3+ bilateral lower extremity edema. Trace distal pulses. LABORATORIES: WBC 25.5 with 91% neutrophils. Hemoglobin 9.1, hematocrit 27.9%, MCV 70, platelets 517,000. Sodium 141, potassium 5.4, BUN 60, creatinine 0.71, glucose 176. AST 196, ALT 76, alkaline phosphatase 505. ASSESSMENT AND PLAN: Metastatic adenocarcinoma, likely gastric in origin: HER-2 testing was negative. Based on the prior discussions with Dr. Suazo, he is being treated with course one FOLFOX chemotherapy. He received oxaliplatin and leucovorin yesterday. He is on infusional 5- fluorouracil, which will continue until tomorrow afternoon. Approximately 24 hours following that, recommend a course of G-CSF 480 mcg subcutaneously to reduce risk of neutropenia, which could complicate his infection. We still await results of Peutz-Jeghers syndrome testing. Defer to Infectious Disease for antibiotic coverage. Monitor electrolytes closely and adjust TPN formula appropriately. His condition remains critical. Cc: Dr. Toby Huizar
--- NOTE | 2017-04-14 08:56 | PCM.PNMED ---
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 Has had trial of EKOS 04/03 but repeat CTPA 04/05showed no resolution of his bilat PE's. Had repeat CTPA and CT of Abd/Pelvis 04/11 which was personally reviewed showed NO resolution of extensive thrombus in both main Pulmonary arteries and nearly all branches, especially those in the RLL and RML. In addition there appears to be progressive disease in his liver with near total replacement of the left lobe with masses. There was increased ascites and evidence for peritioneal carcinomatosis. On 04/11, I spoke at length with Curtis's mother, sister, and father about the results of the CT's and the events of the last 24 hours. We discussed possible options for going forward and I essentially presented 3 different paths. First, I offered that we could continue fully aggressive support, as we are currently, with the expectation that he will eventually of his rapidly growing tumor, possibly within days or a couple weeks. The next option centers on administration of chemotherapy directed at his disseminated tumor along with a jermaine description of the multiple catastrophic complications that could occur as a result and, for which, we would have no effective treatment. These include gastric rupture, hepatic failure, severe GI hemorrhage, tumor lysis, renal failure, ARDS, sepsis, etc. Finally, we discussed withdrawal of Curtis's ventilator and shifting focus to comfort care with the expectation that he would within hours to a few days. I've spoken with Curtis's oncologist, Dr. Suazo, who offered to meet with me and the family later today to give them a full understanding of the choices and likely outcomes. [facility] agreed to take part in the discussion as well. I also offered to seek transfer of Curtis to a tertiary center such as if the family wishes to explore that however I told them that I doubted that could offer any additional options that might alter the final outcome. On 04/12, we had another family meeting to discuss prognosis and formulate a plan. Dr. Suazo, Dr. Calvo, Dr. Bourgeois and I met with the family along with nursing staff. We again presented the above 3 options and answered all questions. In addition, we asked the family to consider whether it was appropriate for Curtis to continue on Full Code status. After several hours deliberation, the family reported to me, Dr. Calvo, Dr. Bourgeois and staff that they had decided that 1) they would like for Curtis to begin chemo and 2) his code status should change to DNAR. We repeated the large volume therapeutic paracentesis and removed 6 L thin bile stained ascitic fluid without complications. He began FOLFOX 04/13 and is receiving continuous infusion of 5-FU which should complete tomorrow for a total dose of 4,000 mg. Morning chemistries show new hyperkalemia and a decline in his serum bicarbonate. STAT repeat labs are pending. Mother at bedside updated as to condition and plan. I explained to her my concern for early tumor lysis based on morning labs. Exam Vital Signs Vital Sign - Last Date Time Temp Pulse Resp B/P Pulse Ox O2 Delivery O2 Flow Rate FiO2 04/14/17 04:44 78 145/84 99 60 04/14/17 04:00 38.0 17 Mechanical Ventilator Intake and Output 04/13/17 04/13/17 04/14/17 Cumulative From/Thru 15:00 23:00 07:00 04/03/17 07:34 - 04/14/17 06:10 Intake Total 2080 ml 1624 ml 1775 ml 23453 ml Output Total 1000 ml 900 ml 1060 ml 64622 ml Balance 1080 ml 724 ml 715 ml 34420 ml Intake Oral 0 ml IV Total 1462 ml 1624 ml 950 ml 23292 ml Tube Feeding 1407 ml TPN/PPN 618 ml 825 ml 7008 ml Packed Cells 351 ml Tube Irrigant 480 ml Output Urine Total 1000 ml 850 ml 800 ml 82247 ml Gastric Drainage Total 0 ml 50 ml 10 ml 1075 ml Drainage Total 6600 ml Other 250 ml 250 ml # Bowel Movements 0 0 0 Exam Pale gaunt young man orally intubated on vent SpO2 96% on 0.5 Tm 38 Lungs coarse crackles Lt base, Rt lung clear CV RRR, soft S1S2, no m/g/r Abd Slightly more distended today, NO BTs, Dressing over site of previous paracenteses dry. Ext 2+ LE edema Neuro No response to voice or light touch. IVs and Medications Medications Reviewed: Medications were reviewed in detail Lab and Diagnostics Result Diagram: 04/14/17 0355 04/14/17 0355 X-Rays, CTs and MRIs CT ANGIO CHEST PULMONARY EMBOLISM 1. Slight decrease in severe pulmonary embolic disease with resolution of the previously seen saddle embolus spanning the main pulmonary artery bifurcation. However, significant embolic burden remains bilaterally. 2. Improved aeration of the left lower lobe. Decreased right lower lobe pneumonia. 3. Moderate ascites and severe hepatic metastatic disease. 4. Healing left rib fractures. 5. Gastroesophageal reflux. Dictated by: Landon Noel M.D. on 04/11/2017 at 10:12 CT ABDOMEN AND PELVIS WITH CONTRAST 1. Interval increased amount of large abdominal and pelvic ascites, presumably from peritoneal carcinomatosis. 2. Numerous variably sized hepatic metastases again noted, most confluent in the left hepatic lobe. 3. 6.4 x 5.5 x 3.5 cm left pelvic cystic lesion appears to arise from the left seminal vesicle. 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 4. Small bibasilar mobile pleural effusions, with associated compressive atelectasis. Dictated by: Moisés Brasher M.D. on 04/11/2017 at 10:32 Chest x-ray Stable pulmonary venous engorgement and support devices. Dictated by: New Powers M.D. on 04/03/2017 at 11:01 CT angiogram 1. Multiple, bilateral large pulmonary emboli. 2. Flattening of the cardiac interventricular septum suggesting right heart strain. 3. Hepatic metastatic disease. 4. Findings telephoned to Dr. Nathan Paz on 04/03/17 at 0817 hrs. Dictated by: Louisa Jones MD, PhD on 04/03/2017 at 8:13 Chest x-ray 1. Endotracheal tube and nasogastric tube positioned as described. 2. Mild cardiomegaly and moderate vascular congestion. Dictated by: Tristin Mckenzie M.D. on 04/03/2017 at 9:55 Chest x-ray 1. Endotracheal tube is positioned at the thoracic inlet. 2. Mild cardiomegaly and vascular congestion is similar to the prior study. Dictated by: Tristin Mckenzie M.D. on 04/03/2017 at 10:03 US ABDOMEN IMPRESSION: 4 quadrant mild ascites noted, growing mass lesions throughout the liver parenchyma. Nonvisualization of the left kidney due to overlying bowel gas and inability of the patient to fully cooperate with positioning and breath holding. Dictated by: Donnie Harrington M.D. on 04/10/2017 CT ANGIO CHEST PULMONARY EMBOLISM IMPRESSION: 1. Slight decrease in severe pulmonary embolic disease with resolution of the previously seen saddle embolus spanning the main pulmonary artery bifurcation. However, significant embolic burden remains bilaterally. 2. Improved aeration of the left lower lobe. Decreased right lower lobe pneumonia. 3. Moderate ascites and severe hepatic metastatic disease. 4. Healing left rib fractures. 5. Gastroesophageal reflux. Dictated by: Landon Noel M.D. on 04/11/2017 CT ABDOMEN AND PELVIS WITH CONTRAST IMPRESSION: 1. Interval increased amount of large abdominal and pelvic ascites, presumably from peritoneal carcinomatosis. 2. Numerous variably sized hepatic metastases again noted, most confluent in the left hepatic lobe. 3. 6.4 x 5.5 x 3.5 cm left pelvic cystic lesion appears to arise from the left seminal vesicle. 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 4. Small bibasilar mobile pleural effusions, with associated compressive atelectasis. Dictated by: Moisés Brasher M.D. on 04/11/2017 Additional Diagnostics PROCEDURE: US ABDOMEN FINDINGS: Liver: Liver is enlarged in size and heterogeneous in echotexture with multiple hepatic mass lesions previously identified again seen, having enlarged in size from the comparison ultrasound 03/07/17 and the largest measures up to 5.5 x 5.0 x 4.3 cm. Gallbladder: The gallbladder watts just above the upper limits of normal at 3.1 mm, and appears to contain sludge. A small amount of adjacent free fluid can be seen. Biliary ducts: Intrahepatic bile ducts are non-dilated. Extrahepatic bile duct caliber measures 3.5 mm. Normal is 6-7 mm or less in diameter, or 10 mm or less post-cholecystectomy. Pancreas: Visualized portions of the pancreas are sonographically normal. Spleen: Spleen is normal in size and homogeneous in echotexture. Kidneys: The right kidney is normal in size and echotexture. Right kidney measures 16.3 cm long; left kidney could not be seen. No solid masses. Aorta: Visualized aorta is normal in caliber at less than 3 cm. Iliacs: Proximal common iliac arteries are normal in caliber at less than 2.5 cm. IVC: Intrahepatic inferior vena cava is patent. Miscellaneous: There is mild for quadrant abdominal free fluid. IMPRESSION: 4 quadrant mild ascites noted, growing mass lesions throughout the liver parenchyma. Nonvisualization of the left kidney due to overlying bowel gas and inability of the patient to fully cooperate with positioning and breath holding. Dictated by: Donnie Harrington M.D. 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 He is receiving Ertapenem for a MSSA pneumonia and as empiric coverage for intrabdominal sepsis. He began FOLFOX 04/13. IMP Resp failure Multifactorial with massive PE, LLL PNA and marked abdominal distension all contributing. There has been NO radiographic resolution of his extensive bilateral PE's despite EKOS and systemic anticoagulation with heparin and argatroban now. His tense ascites has been drained x2 but is reaccumulating as anticipated. His FiO2 has been increased over night. I doubt he would survive more than a few hours if extubated today as he is so weak, septic, hypoxemic and would require large doses of opiates and probably benzodiazepines to maintain comfort. Will continue to reevaluate daily for vent liberation but not likely until he has completed chemo. Day #5 empiric ertapenem for LLL PNA. Following the removal of 6 L ascitic fluid 04/12, his O2 requirements decreased and he appears more comfortable. PE Bilat Massive PE. Had RV pressure overload on echo but no improvement after EKOS and anticoagulation on followup CTs. Possible this is not all thrombosis but instead some degree of tumor emboli given extent of hepatic involvement. He is undoubtably thrombophilic due to his advance gastric cancer. Systemic thrombolysis not an option given his history of Gastric tumor and recent GI bleeds requiring transfusion. An attempt at catheter directed therapy with EKOS has failed and surgical thrombectomy is not a consideration given his primary diagnosis and exceeding grim prognosis based on that. Gastric CA HER 2 negative and he has started FOLFOX. His new hyperkalemia and decline in HCO3 raise suspicion for early tumor lysis. STAT uric acid, K+, and ABG ordered. Will likely need to hold his TPN as it contains 50 mEq of KCL as well as some phosphate. His family decided to begin chemotherapy and have been fully and repeatedly informed of the significant risks for catastrophic complications for which there may be no effective treatment. In the event of a cardiac arrest, he is now DNAR. Ascites A reflection of his elevated RV pressure and hypoalbuminemia along with tumor involvement. Improved after 6 L removed 04/12. Given total 75 gms albumin following the last proceduret. REC FOLFOX per Oncology, will complete 5-FU infusion 04/15 Filgrastim per Oncology once chemo completed STAT repeat K+, Uric acid, ABG, Serial labs, Aggressive hydration. Rasburicase if urate > 7.5 Abx per ID Repeat therapeutic large volume paracentesis repeated as needed Continuous sedation with fentanyl, precedex and propofol with daily awakening trial and SBT. Added Zydis 5 q 12 for additional sedation Decadron for antiemesis and adjunctive pain treatment TPN Argatroban GI prophylaxis Pain Evaluation: Adequate Pain Control GI Prophylaxis: Proton Pump Inhibitor VTE Prophylaxis: Other (Argatroban ggt) Resuscitation Status: DNR/DNI:Do Not Resuscitate/Intubate (max support but DNR) Time spent 55 minutes critical care exclusive of shared time and procedures. Dony Vega MD Apr 14, 2017 08:39
--- NOTE | 2017-04-14 08:57 | ABG ---
DateTimeAnalyzed 08:48:00 -_ pH ____7.369 - 7.350 7.450 pCO2 ___32.7__ -mmHg 35.0 45.0 pO2 ___76.5__ -mmHg 69.0 116 HCO3- ___18.4__ -mmol/L 22.0 26.0 ABE ___-5.7__ -mmol/L -2.0 2.0 tHb ____9.0__ -g/dL 12.0 18.0 O2Hb ___94.2__ -% COHb ____1.1__ -% 0.0 1.5 MetHb ____1.0__ -% 0.4 1.5 sO2 ___96.2__ -% 25.0 FIO2 ___60.0__ -% PEEP ____5.0__ -cmH2O Set_RR ___12.0__ -b/min Vt __780.0__ -L Drawn By NB - Date/Time Notified____ 08:56:00 -_ Spontaneous_RR ___20.0__ -b/min Oxygen Device 1 VENTILATOR - Notified By nb - Notified Whom DR Vega - B 762 -mmHg tO2 ___12.1__ -Vol% Yaakov test N/A -
[2017-04-14] MEDS ORDERED: 0.9% Sodium Chloride 1,000 ML IV ONE (09:00)
[2017-04-14] MEDS ORDERED: Dextrose 10% 1,000 ML IV SCH (09:00)
[2017-04-14] MEDS: Ertapenem Inj 1,000 MG in 0.9% Sodium Chloride 50 ML IV SCH (09:27)
[2017-04-14] MEDS: Polyethylene Glycol (PEG) 17 Gm Powder PO SCH ×2 (09:29→21:15)
[2017-04-14] MEDS: Insulin LISPRO 300 Unit/3 mL Inj SUBQ SCH ×4 (09:35→21:27)
[2017-04-14] MEDS: 0.9% Sodium Chloride 1,000 ML IV SCH ×3 (09:40→20:08)
--- NOTE | 2017-04-14 09:40 | NUR ---
TPN stopped per order
[2017-04-14 10:07] LABS: Phosphorus 3.7 mg/dL (2.5-4.9)
[2017-04-14] MEDS: ARGATROBAN IV SCH ×2 (11:30)
[2017-04-14] MEDS: SODIUM CHLORIDE IV SCH ×2 (11:30)
--- NOTE | 2017-04-14 12:31 | DRSVH ---
PROCEDURE: X-RAY CHEST ONE VIEW, PORTABLE ([id number]) INDICATIONS: resiratory failure TECHNIQUE: One view of the chest was acquired. COMPARISON: [facility], CT, CT ANGIO CHEST PE, 04/11/2017, 9:37. [facility], CR, XR CHEST 1VW (PORTABLE), 04/13/2017, 4:38. FINDINGS: Surgical changes and devices: The endotracheal tube is 3 cm above alen. There is a nasogastric in the stomach. Lungs and pleura: Bilateral perihilar infiltrates are unchanged. There is persistent left basilar co nsolidation and small left pleural effusion. No pneumothorax. Mediastinum: Mediastinal contours appear normal. Bones and chest wall: No suspicious bony lesions. Overlying soft tissues appear unremarkable. IMPRESSION: Stable chest. Dictated by: Paul Nieves M.D. on 04/14/2017 at 12:27 Approved by: Paul Nieves M.D. on 04/14/2017 at 12:30
--- NOTE | 2017-04-14 12:50 | PCM.PHAPRO ---
Progress TPN TPN Per Pharmacy A: Due to pt's morning labs, possible risk of tumor lysis syndrome. Discussed with MD and taken K and Phos out of TPN for the new bag tonight PARENTERAL NUTRITION ORDERS 14-Apr-17 Standard Hang Time: 2100 Substrates Total kcal: 1600 AMINO ACIDS 120 g DEXTROSE 300 g Total Volume (mL): 1600 LIPIDS 10 g Sterile Water for Injection mL To Infuse Over (hrs): 24 Total Volume 1600 mL At at a rate of (mL/hr): 67 Additives Sodium Chloride 80 mEq "typical" daily requirements Sodium Acetate 40 mEq Sodium 50-120mEq Potassium Chloride 0 mEq Potassium 60-120mEq Potassium Phosphate 0 mEq Phosphate 20-40mEq Calcium Gluconate 9.3 mEq Magnesium 8-32mEq Magnesium Sulfate 12 mEq Calcium 9-22mEq Acetate* 80-120mEq Chloride* 80-120mEq Regular Insulin units *Depending on acid-base status Famotidine mg Multivitamins 1 std dose Insulin Regimen Trace Elements 1 std dose none Thiamine mg Regular Low Intensity Subcut Folic Acid mg Regular Medium Intensity Subcut Ascorbic Acid mg Regular High Intensity Subcut Regular Insulin Infusion Other: Special Instructions: To be infused via central line only. For delay or inturruption of TPN contact the pharmacist for alternative replacement solution. Signature Date: DREA PELAYO [address] [facility] Pharmacy will continue to follow Constanza Juares PharmD Apr 14, 2017 12:50
--- NOTE | 2017-04-14 12:51 | PCM.PNMED ---
Subjective Date of Service Apr 14, 2017 Subjective Pt currently initiated FOLFOX therapy on April 13. He is receiving continuous infusion of 5-FU which should complete tomorrow for total dose of 4000 mg. Exam Vital Signs Vital Sign - Last Date Time Temp Pulse Resp B/P Pulse Ox O2 Delivery O2 Flow Rate FiO2 04/14/17 09:03 78 125/63 97 60 04/14/17 04:00 38.0 17 Mechanical Ventilator Intake and Output 04/13/17 04/13/17 04/14/17 Cumulative From/Thru 15:00 23:00 07:00 04/03/17 07:34 - 04/14/17 06:10 Intake Total 2080 ml 1624 ml 1775 ml 72572 ml Output Total 1000 ml 900 ml 1060 ml 40287 ml Balance 1080 ml 724 ml 715 ml 70968 ml Intake Oral 0 ml IV Total 1462 ml 1624 ml 950 ml 83288 ml Tube Feeding 1407 ml TPN/PPN 618 ml 825 ml 7008 ml Packed Cells 351 ml Tube Irrigant 480 ml Output Urine Total 1000 ml 850 ml 800 ml 90934 ml Gastric Drainage Total 0 ml 50 ml 10 ml 1075 ml Drainage Total 6600 ml Other 250 ml 250 ml # Bowel Movements 0 0 0 Exam Exam deferred secondary to multiple providers and family concern regarding mixed messages from providers. Lab and Diagnostics Laboratory Tests 72 Hours Test 04/11/17 15:55 04/12/17 04:45 04/13/17 04:15 04/14/17 03:55 Urine Color Dark yellow (YELLOW) Urine Appearance Cloudy (CLEAR,HAZY) Urine pH 5.0 (5.0-8.0) Urine Specific [place] 1.020 (1.003-1.035) Urine Protein 30mg/dL (NEG,TRACE) Urine Glucose (UA) Negativemg/dL (NEGATIVE) Urine Ketones Negativemg/dL (NEGATIVE) Urine Occult Blood Trace (NEGATIVE) Urine Nitrite Negative (NEGATIVE) Urine Bilirubin Negative (NEGATIVE) Urine Urobilinogen 2.0mg/dL (NORMAL) Urine Leukocyte Esterase Negative (NEGATIVE) Urine RBC 0-2/hpf (0-2) Urine WBC 0-5/hpf (0-5) Urine Epithelial Cells Few/hpf (NONE-MOD) Urine Crystals None seen (NONE SEEN) Urine Bacteria Few/hpf (NONE-FEW) Urine Hyaline Casts None/lpf (NONE) Urine Granular Casts None seen (NONE SEEN) Urine Waxy Casts None seen (NONE SEEN) Urine Red Blood Cell Casts None seen (NONE SEEN) Urine White Blood Cell Casts None seen (NONE SEEN) Urine Mucus None seen (None Seen) Urine Trichomonas None seen (NONE SEEN) Urine Yeast None (NONE SEEN) Urinalysis Comment None Urine Culture Reflexed Not indicated White Blood Count 19.2th/mm3 (3.8-10.1) 18.7th/mm3 (3.8-10.1) 25.5th/mm3 (3.8-10.1) Red Blood Count 4.37mil/mm3 (4.40-5.80) 3.93mil/mm3 (4.40-5.80) 3.97mil/mm3 (4.40-5.80) Hemoglobin 10.0g/dL (13.8-17.2) 9.0g/dL (13.8-17.2) 9.1g/dL (13.8-17.2) Hematocrit 31.1% (41.0-50.0) 27.8% (41.0-50.0) 27.9% (41.0-50.0) Mean Corpuscular Volume 71.2fL (81-100) 70.7fL (81-100) 70.3fL (81-100) Mean Corpuscular Hemoglobin 22.9pg (27.0-35.0) 22.9pg (27.0-35.0) 22.9pg (27.0-35.0) Mean Corpuscular Hemoglobin Concent 32.2% (32.0-37.0) 32.4% (32.0-37.0) 32.6% (32.0-37.0) Red Cell Distribution Width 21.3% (12.3-15.4) 20.9% (12.3-15.4) 21.6% (12.3-15.4) Platelet Count 393bil/L (150-400) 435bil/L (150-400) 517bil/L (150-400) Neutrophils (%) (Auto) 89% (40-74) 87.0% (40-74) 90.7% (40-74) Lymphocytes (%) (Auto) 3% (14-46) 4.6% (14-46) 3.0% (14-46) Monocytes (%) (Auto) 8% (4-12) 5.5% (4-12) 4.8% (4-12) Eosinophils (%) (Auto) 0% (0-5) 0.9% (0-5) 0% (0-5) Basophils (%) (Auto) 0% (0-3) 0.5% (0-3) 0.2% (0-3) Nucleated Red Blood Cells 1/100 WBC (0-24) Hematology Comments Activated Partial Thromboplast Time 68.6sec (22.8-33.0) 72.7sec (22.8-33.0) 73.5sec (22.8-33.0) Sodium Level 137mEq/L (134-144) 143mEq/L (134-144) 141mEq/L (134-144) Potassium Level 4.7mEq/L (3.5-5.2) 4.5mEq/L (3.5-5.2) 5.4mEq/L (3.5-5.2) Chloride Level 102mEq/L (97-108) 108mEq/L (97-108) 109mEq/L (97-108) Carbon Dioxide Level 17mmol/L (18-29) 18mmol/L (18-29) 16mmol/L (18-29) Blood Urea Nitrogen 56mg/dL (6-20) 60mg/dL (6-20) 60mg/dL (6-20) Creatinine 1.04mg/dL (0.76-1.27) 0.75mg/dL (0.76-1.27) 0.71mg/dL (0.76-1.27) Estimat Glomerular Filtration Rate 91mL/min (>59) 133mL/min (>59) 141mL/min (>59) Glucose Level 175mg/dL (60-99) 132mg/dL (60-99) 176mg/dL (60-99) Lactic Acid Level 1.9mmol/L (0.4-2.0) Calcium Level 8.3mg/dL (8.5-10.1) 8.1mg/dL (8.5-10.1) 8.2mg/dL (8.5-10.1) Phosphorus Level 3.6mg/dL (2.5-4.9) 3.0mg/dL (2.5-4.9) 3.7mg/dL (2.5-4.9) Magnesium Level 2.6mg/dL (1.6-2.6) 2.6mg/dL (1.6-2.6) 2.7mg/dL (1.6-2.6) Total Bilirubin 4.7mg/dL (0.0-1.2) 5.8mg/dL (0.0-1.2) 5.7mg/dL (0.0-1.2) Direct Bilirubin 4.0mg/dL (0.0-0.3) Aspartate Amino Transf (AST/SGOT) 132U/L (0-50) 247U/L (0-50) 196U/L (0-50) Alanine Aminotransferase (ALT/SGPT) 48U/L (0-44) 68U/L (0-44) 76U/L (0-44) Alkaline Phosphatase 471U/L (25-150) 448U/L (25-150) 505U/L (25-150) Total Protein 5.7g/dL (6.4-8.4) 4.8g/dL (6.4-8.4) 4.6g/dL (6.4-8.4) Albumin 2.5g/dL (3.4-5.0) 2.5g/dL (3.4-5.0) 2.1g/dL (3.4-5.0) Triglycerides Level 360mg/dL (0-149) Test 04/14/17 09:10 Hold Purple Top Tube Received (Received) Hold Blue Top Tube Received (Received) Sodium Level 142mEq/L (134-144) Potassium Level 5.2mEq/L (3.5-5.2) Chloride Level 109mEq/L (97-108) Carbon Dioxide Level 17mmol/L (18-29) Blood Urea Nitrogen 65mg/dL (6-20) Creatinine 0.79mg/dL (0.76-1.27) Estimat Glomerular Filtration Rate 125mL/min (>59) Glucose Level 173mg/dL (60-99) Uric Acid 5.6mg/dL (2.6-7.2) Calcium Level 8.2mg/dL (8.5-10.1) Phosphorus Level 3.7mg/dL (2.5-4.9) Lactate Dehydrogenase 808U/L (100-190) Triglycerides Level 252mg/dL (0-149) Hold [place] Top Tube Received (Received) Result Diagram: 04/14/17 0355 04/14/17 0910 X-Rays, CTs and MRIs CT ANGIO CHEST PULMONARY EMBOLISM 1. Slight decrease in severe pulmonary embolic disease with resolution of the previously seen saddle embolus spanning the main pulmonary artery bifurcation. However, significant embolic burden remains bilaterally. 2. Improved aeration of the left lower lobe. Decreased right lower lobe pneumonia. 3. Moderate ascites and severe hepatic metastatic disease. 4. Healing left rib fractures. 5. Gastroesophageal reflux. Dictated by: Landon Noel M.D. on 04/11/2017 at 10:12 CT ABDOMEN AND PELVIS WITH CONTRAST 1. Interval increased amount of large abdominal and pelvic ascites, presumably from peritoneal carcinomatosis. 2. Numerous variably sized hepatic metastases again noted, most confluent in the left hepatic lobe. 3. 6.4 x 5.5 x 3.5 cm left pelvic cystic lesion appears to arise from the left seminal vesicle. 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 4. Small bibasilar mobile pleural effusions, with associated compressive atelectasis. Dictated by: Moisés Brasher M.D. on 04/11/2017 at 10:32 Chest x-ray Stable pulmonary venous engorgement and support devices. Dictated by: New Powers M.D. on 04/03/2017 at 11:01 CT angiogram 1. Multiple, bilateral large pulmonary emboli. 2. Flattening of the cardiac interventricular septum suggesting right heart strain. 3. Hepatic metastatic disease. 4. Findings telephoned to Dr. Nathan Paz on 04/03/17 at 0817 hrs. Dictated by: Louisa Jones MD, PhD on 04/03/2017 at 8:13 Chest x-ray 1. Endotracheal tube and nasogastric tube positioned as described. 2. Mild cardiomegaly and moderate vascular congestion. Dictated by: Trsitin Mckenzie M.D. on 04/03/2017 at 9:55 Chest x-ray 1. Endotracheal tube is positioned at the thoracic inlet. 2. Mild cardiomegaly and vascular congestion is similar to the prior study. Dictated by: Tristin Mckenzie M.D. on 04/03/2017 at 10:03 US ABDOMEN IMPRESSION: 4 quadrant mild ascites noted, growing mass lesions throughout the liver parenchyma. Nonvisualization of the left kidney due to overlying bowel gas and inability of the patient to fully cooperate with positioning and breath holding. Dictated by: Donnie Harrington M.D. on 04/10/2017 CT ANGIO CHEST PULMONARY EMBOLISM IMPRESSION: 1. Slight decrease in severe pulmonary embolic disease with resolution of the previously seen saddle embolus spanning the main pulmonary artery bifurcation. However, significant embolic burden remains bilaterally. 2. Improved aeration of the left lower lobe. Decreased right lower lobe pneumonia. 3. Moderate ascites and severe hepatic metastatic disease. 4. Healing left rib fractures. 5. Gastroesophageal reflux. Dictated by: Landon Noel M.D. on 04/11/2017 CT ABDOMEN AND PELVIS WITH CONTRAST IMPRESSION: 1. Interval increased amount of large abdominal and pelvic ascites, presumably from peritoneal carcinomatosis. 2. Numerous variably sized hepatic metastases again noted, most confluent in the left hepatic lobe. 3. 6.4 x 5.5 x 3.5 cm left pelvic cystic lesion appears to arise from the left seminal vesicle. 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 4. Small bibasilar mobile pleural effusions, with associated compressive atelectasis. Dictated by: Moisés Brasher M.D. on 04/11/2017 Additional Diagnostics PROCEDURE: US ABDOMEN FINDINGS: Liver: Liver is enlarged in size and heterogeneous in echotexture with multiple hepatic mass lesions previously identified again seen, having enlarged in size from the comparison ultrasound 03/07/17 and the largest measures up to 5.5 x 5.0 x 4.3 cm. Gallbladder: The gallbladder watts just above the upper limits of normal at 3.1 mm, and appears to contain sludge. A small amount of adjacent free fluid can be seen. Biliary ducts: Intrahepatic bile ducts are non-dilated. Extrahepatic bile duct caliber measures 3.5 mm. Normal is 6-7 mm or less in diameter, or 10 mm or less post-cholecystectomy. Pancreas: Visualized portions of the pancreas are sonographically normal. Spleen: Spleen is normal in size and homogeneous in echotexture. Kidneys: The right kidney is normal in size and echotexture. Right kidney measures 16.3 cm long; left kidney could not be seen. No solid masses. Aorta: Visualized aorta is normal in caliber at less than 3 cm. Iliacs: Proximal common iliac arteries are normal in caliber at less than 2.5 cm. IVC: Intrahepatic inferior vena cava is patent. Miscellaneous: There is mild for quadrant abdominal free fluid. IMPRESSION: 4 quadrant mild ascites noted, growing mass lesions throughout the liver parenchyma. Nonvisualization of the left kidney due to overlying bowel gas and inability of the patient to fully cooperate with positioning and breath holding. Dictated by: Donnie Harrington M.D. 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 Hospital Day 12. #. Massive bilateral pulmonary emboli with obstructive shock, acute. Slowly improving. -Confirmed home dose of Lovenox 80 mg daily, most likely missing intermittent dosing prior to admission -Repeat CT shows unchanged clot burden despite treatment with tPA and EKOS 3, possible this is secondary to tumor emboli -Probable lysis not an option secondary to primary diagnosis of gastric tumor and prognosis -Continue with Argatroban drip, monitor PTT level -Continue to attempt to wean FiO2 #. Acute hypoxic respiratory failure, POA ongoing. -ICU/pulmonology team following greatly appreciated recommendations and treatment direction. - Multiple possibilities including pneumonia, PE, tumor emboli, mucous plugging - Bronchoscopy 2 with removal of mucous plug - Continue pressure control mechanical ventilation. Continue to attempt to wean FiO2 - Continue chest physiotherapy when necessary - Continue with Precedex, attempt to wean off propofol - Sedation vacation successful, though became agitated after being intubated so sedation was increased again #. Pneumonia, not present on admission, improving. -Bronchial washing showed staph aureus, resistant to erythromycin. The patient also has had evidence of left lower lobe collapse likely from secretions. -Discontinued Zosyn, switched to nafcillin - also discontinued -Pro calcitonin continues to trend up though in the setting of liver metastasis unreliable, we will stop following this value -WBC continues to trend down, remains afebrile -ID following, recommendations appreciated -Ertapenem started 04/10/2017 -Bronchoscopy as above -Continue to monitor #. Sepsis secondary to HCAP. Acute and improving. -Most likely MSSA pneumonia, confirmed by bronchoscopy and lavage -CT angio showed bilateral pleural effusions, worsening bibasilar pneumonia pattern, greater on the left than the right. -WBC trending down, afebrile -No longer following Pro calcitonin in the setting of hepatic metastases -Infectious disease following -Antibiotics as above -No vasopressor requirements #. Anasarca, new and active. The patient has significant volume overload from resuscitation. We will continue to monitor and diuresis as able. -1.5 L peritoneal fluid taken off 04/10/2017, additional paracentesis 2016 with 6.5 L taken off -Albumin replacement -Ascitic fluid shows exudate -Urinary output remains adequate -Continue to monitor #. Acute iron deficiency anemia. Stable. - Secondary to hemodilution from aggressive fluid resuscitation. Possibly secondary to GI bleed from malignant gastric ulcers, but no sign of acute bleed at this time. Hb has been stable, so will switch from PPI drip to BID. - PRBCs on hold. Transfuse for HB <8. - Check H&H daily - Protonix 40 mg IV BID - Monitor for signs of acute bleeding #. Bilateral popliteal DVT, POA and active. - Pt diagnosed with bilateral large DVTs 3 weeks ago, placed on Lovenox at home with possible missed doses - Currently therapeutic on Argatroban #. Metastatic liver cancer due to poorly differentiated adenocarcinoma. - Per ICU team - CT abd/pelvis on 04/11/17 revealed numerous variably sized hepatic metastases, most confluent in the left hepatic lobe. - Given the rapid progression of his adenocarcinoma, it is reasonable to proceed with chemotherapy if his family chooses to go that route. However, we discussed the risk of chemo with the family, include but not limited to: 1) bleeding into liver or gut due to tumor necrosis while anticoagulated, 2) severe sepsis in the face of underlying partially treated bacterial infection, 3 ) tumor lysis syndrome, 4) Perforated bowel/stomach - Initiate chemotherapy as noted above -Some concern by pharmacy buyer regarding possible tumor lysis syndrome as Hyperkalemia and a decline in serum bicarbonate noticed on labs today. #. Hyperbilirubinemia, new and active. - Bilirubin and Alkaline phos trending up; scleral icterus on exam; likely secondary to hepatic metastases. - Abdominal and pelvis CT shows growing mass lesions throughout liver parenchyma #. Constipation. Present on admission Ongoing -Refractory to all multiple enemas including enema with with FMS -Refractory to suppository -Continue aggressive bowel regimen #. Malnutrition. Ongoing -Nutrition following, TPN started with concentrated formula Dangerous meds include fentanyl drip and propofol. Disposition: Remains intubated sedated ICU status Patient is on PPO BID for GI prophylaxis. He is on Argatroban ggt for PE, which is therapeutic. GI Prophylaxis: Proton Pump Inhibitor VTE Prophylaxis: Other (Argatroban ggt) Resuscitation Status: DNR/DNI:Do Not Resuscitate/Intubate (max support but DNR) GI Prophylaxis: Proton Pump Inhibitor VTE Prophylaxis: Other (Argatroban ggt) Resuscitation Status: DNR/DNI:Do Not Resuscitate/Intubate (max support but DNR) Time spent 20 minutes Anna Marino MD Apr 14, 2017 12:51
--- NOTE | 2017-04-14 14:00 | NUR ---
Full CLRT rotation tolerated, plus q2h turn side to side.
[2017-04-14] MEDS: DEXTROSE 5% IV SCH (16:16)
[2017-04-14] MEDS: FLUOROURACIL IV SCH (16:16)
--- NOTE | 2017-04-14 16:30 | NUR ---
Desaturation episode w/ tachypnea RESP: RT, RN working together w/ lavage suctioning, oral care w/ oral suction q5 min for evidence of bile fluid. CV: max temp 102.3 po this shift. OGT not draining much; discontinued & replaced with 16Fr OGT. Placement verified per PCXR w/ verbal comfirmation per Straw Hat Washer Operator. ABD taut, distended though no more so than earlier. Current Abd pressure is 20, down from 24 this a.m. notified. SEDATION: increased Propofol gtt @ 50mcg/kg/min, Fentanyl gtt up to 300mcg/hr. Pt gradually less tachypneic, improvement in Oxygenation, Sats now 92-93, RR 18-22. Family updated frequently & thoroughly qhr plus prn their requests. RN, RT @ bedside q15min throughout shift; meticulous bedside care administered to pt; Repeated information dispersed to multiple family members numerous times this shift, pt's Mother expressing appreciation to staff. Continue full support/chemo infusion/deep sedation/pain management/safety priority.
--- NOTE | 2017-04-14 16:54 | NUR ---
Chemo: Pt picc line checked for blood return at 1200 and Bag 2 of fluorouracil started at approx 1600. Chemo orders and patient identification checked by 2 RN. No side effects noted by primary RN in last 24 hours of chemo admin. Family educated on stop time of chemo, and questions asked about further chemo administrations. Family referred to Dr Santos for further administration timelines. Primary RN given additional information on chemo precautions.
--- NOTE | 2017-04-14 17:07 | DRSVH ---
PROCEDURE: X-RAY CHEST ONE VIEW, PORTABLE ([id number]) INDICATIONS: hypoxemia TECHNIQUE: One view of the chest was acquired. COMPARISON: [facility], CT, CT ANGIO CHEST PE, 04/11/2017, 9:37. [facility], CR, XR CHEST 1VW (PORTABLE), 04/13/2017, 4:38. [facility], CR, XR CHEST 1VW (PORTABLE), 04/14/2017, 4:30. FINDINGS: Surgical changes and devices: In the trachea tube and nasogastric tube are in the expected position. Lungs and pleura: Bilateral perihilar infiltrates, right greater than left, consistent with asymmetr ic pulmonary edema. There is more confluent right basilar airspace infiltrate and left basilar consol idation suspicious for superimposed pneumonia. Small left pleural effusion. Overall, there is no sign ificant change. No pneumothorax. Mediastinum: Mediastinal contours appear normal. Heart size is normal. Bones and chest wall: No suspicious bony lesions. Overlying soft tissues appear unremarkable. IMPRESSION: 1. Asymmetric pulmonary edema with superimposed bibasilar pneumonia. Dictated by: Paul Nieves M.D. on 04/14/2017 at 17:03 Approved by: Paul Nieves M.D. on 04/14/2017 at 17:05
[2017-04-14] MEDS: Dexamethasone 4 mg/mL Inj IVPUSH SCH (20:42)
[2017-04-14] MEDS: TPN Per Pharmacist XX SCH (20:43)
[2017-04-14] MEDS: Total Parenteral Nutrition 1 BAG IV SCH (21:16)
[2017-04-15] VITALS (13 sets, daily range): BP systolic 108–127; BP diastolic 46–69; PULSE 76–79; RESP 15–28; O2SAT 90–99
--- NOTE | 2017-04-15 00:43 | NUR ---
Chemo infusing without problems. Line check and brisk blood return. Site clean dry, no erythemia.
[2017-04-15] MEDS: Propofol Inj 1,000,000 MCG in IV Premix 1 EACH IV PRN ×4 (01:12→22:23)
[2017-04-15] MEDS: Chlorhexidine 0.12% 15 mL Oral Solution MT SCH ×6 (01:12→20:30)
[2017-04-15] MEDS: Dexmedetomidine 400 mCg/100 mL 400 MCG in IV Premix 1 EACH IV PRN ×4 (03:14→21:07)
[2017-04-15 05:24] LABS: BASOPHILS % (AUTO) 0 % (0-3); EOSINOPHILS % (AUTO) 0 % (0-5); MONOCYTES % (AUTO) 0 % (4-12); Magnesium 2.7 mg/dL (1.6-2.6); Mean Corpuscular Volume 72.6 fL (81-100); NEUTROPHILS % (AUTO) 97 % (40-74); Phosphorus 4.3 mg/dL (2.5-4.9); Platelet Count 513 bil/L (150-400)
[2017-04-15] MEDS: fentaNYL 2,500 mCg/250 mL 2,500 MCG in IV Premix 1 EACH IV SCH ×3 (06:34→22:09)
--- NOTE | 2017-04-15 07:56 | NUR ---
Respiratory/Nutrition Continue on vent support with same settings, sp02 92-97%, on fentanyl, propofol and precedex gtt sedation, intermittent RASS +1, RR high 20's, given ativan 0.5 mg x 2 IVP. Started TPN around 2100 @ 67 ml/hr, dc'd D10W and NS IVF per MD order, BG stable. checked bmp @ 2050,0222 & 0448, resulted with K+ 5.6+, K+ 5.2, K+ 5.3. Hospitalist updated with labs. Father at bedside updated on plan care for the shift.
[2017-04-15] MEDS: Polyethylene Glycol (PEG) 17 Gm Powder PO SCH (08:30)
[2017-04-15] MEDS: OLANZapine Zydis ODT 5 mg Tablet PO SCH ×2 (08:30→20:29)
[2017-04-15] MEDS: Dexamethasone 4 mg/mL Inj IVPUSH SCH ×2 (08:30→20:29)
[2017-04-15] MEDS: [UNRECOGNIZED DRUG - REMARK] XX SCH (08:30)
--- NOTE | 2017-04-15 08:48 | DRSVH ---
PROCEDURE: X-RAY CHEST ONE VIEW, PORTABLE ([id number]) INDICATIONS: respiratory failure TECHNIQUE: One view of the chest was acquired. COMPARISON: [facility], CR, XR CHEST 1VW (PORTABLE), 04/14/2017, 15:40. [facility], CR, XR CHEST 1VW (PORTABLE), 04/14/2017, 4:30. [facility], CR, XR CHEST 1VW (PORT ABLE), 04/13/2017, 4:38. [facility], CR, XR CHEST 1VW (PORTABLE), 04/10/2017, 7:23. FINDINGS: Surgical changes and devices: Stable ET tube and enteric tube. Left PICC tip in the lower SVC. Postop erative change projects over the left upper chest. Lungs and pleura: No pleural effusions or pneumothorax. Stable right lung base infiltrates. Improvi ng left lower lobe volume loss. Mediastinum: Mediastinal contours appear normal. Heart size is normal. Bones and chest wall: No suspicious bony lesions. Overlying soft tissues appear unremarkable. IMPRESSION: 1. Stable right basilar infiltrates. Improving left lower lobe volume loss. 2. Stable support devices. Dictated by: New Powers M.D. on 04/15/2017 at 8:45 Approved by: New Powers M.D. on 04/15/2017 at 8:47
[2017-04-15] MEDS: Pantoprazole 4 mg/mL 10 mL Inj IVPUSH SCH ×2 (09:38→16:30)
[2017-04-15] MEDS: Ertapenem Inj 1,000 MG in 0.9% Sodium Chloride 50 ML IV SCH (09:39)
[2017-04-15] MEDS ORDERED: Dextrose 10% 250 ML IV PRN (10:00)
--- NOTE | 2017-04-15 11:22 | NUR ---
Chemo Patient with infusion of Fluorouracil at 12.6 mls/hr via picc line. Patient with brisk blood return when checked. Patients vitals being monitored by his primary CCU nurse. Infusion will be finished this early evening.
[2017-04-15] MEDS ORDERED: Lidocaine PF 2% 10 mL Inj MUC_MEMBRM ONE ×2 (12:25)
--- NOTE | 2017-04-15 15:08 | PCM.PNMED ---
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 Has had trial of EKOS 04/03 but repeat CTPA 04/05showed no resolution of his bilat PE's. Had repeat CTPA and CT of Abd/Pelvis 04/11 which was personally reviewed showed NO resolution of extensive thrombus in both main Pulmonary arteries and nearly all branches, especially those in the RLL and RML. In addition there appears to be progressive disease in his liver with near total replacement of the left lobe with masses. There was increased ascites and evidence for peritioneal carcinomatosis. On 04/11, I spoke at length with Curtis's mother, sister, and father about the results of the CT's and the events of the last 24 hours. We discussed possible options for going forward and I essentially presented 3 different paths. First, I offered that we could continue fully aggressive support, as we are currently, with the expectation that he will eventually of his rapidly growing tumor, possibly within days or a couple weeks. The next option centers on administration of chemotherapy directed at his disseminated tumor along with a jermaine description of the multiple catastrophic complications that could occur as a result and, for which, we would have no effective treatment. These include gastric rupture, hepatic failure, severe GI hemorrhage, tumor lysis, renal failure, ARDS, sepsis, etc. Finally, we discussed withdrawal of Curtis's ventilator and shifting focus to comfort care with the expectation that he would within hours to a few days. I've spoken with Curtis's oncologist, Dr. Suazo, who offered to meet with me and the family later today to give them a full understanding of the choices and likely outcomes. [facility] agreed to take part in the discussion as well. I also offered to seek transfer of Curtis to a tertiary center such as if the family wishes to explore that however I told them that I doubted that could offer any additional options that might alter the final outcome. On 04/12, we had another family meeting to discuss prognosis and formulate a plan. Dr. Suazo, Dr. Calvo, Dr. Bourgeois and I met with the family along with nursing staff. We again presented the above 3 options and answered all questions. In addition, we asked the family to consider whether it was appropriate for Curtis to continue on Full Code status. After several hours deliberation, the family reported to me, Dr. Calvo, Dr. Bourgeois and staff that they had decided that 1) they would like for Curtis to begin chemo and 2) his code status should change to DNAR. We repeated the large volume therapeutic paracentesis and removed 6 L thin bile stained ascitic fluid without complications. He began FOLFOX 04/13 and is receiving continuous infusion of 5-FU which should complete tomorrow for a total dose of 4,000 mg. Morning chemistries show new hyperkalemia and a decline in his serum bicarbonate. STAT repeat labs are pending. Interval History No critical events over night. Has maintained good UOP. SpO2 is 98% on FiO2 0.6. Progressive metabolic abnormalities likely reflect ongoing tumor lysis. Will complete 5-FU infusion later today. Exam Vital Signs Vital Sign - Last Date Time Temp Pulse Resp B/P Pulse Ox O2 Delivery O2 Flow Rate FiO2 04/15/17 08:30 38.0 78 22 118/55 98 Mechanical Ventilator 70 Intake and Output 04/14/17 04/14/17 04/15/17 Cumulative From/Thru 15:00 23:00 07:00 04/03/17 07:34 - 04/15/17 06:21 Intake Total 4485 ml 2508 ml 74182 ml Output Total 1060 ml 1140 ml 07086 ml Balance 3425 ml 1368 ml 64148 ml Intake Oral 0 ml IV Total 3660 ml 1922 ml 92120 ml Tube Feeding 1407 ml TPN/PPN 825 ml 586 ml 8419 ml Packed Cells 351 ml Tube Irrigant 480 ml Output Urine Total 800 ml 650 ml 47465 ml Gastric Drainage Total 10 ml 150 ml 1235 ml Drainage Total 6600 ml Other 250 ml 340 ml 840 ml # Bowel Movements 0 0 0 Exam Pale gaunt young man orally intubated on vent Lungs Decreased anteriorly, NO wheezes CV Distant HTs, no m/g/r Abd More tense today. NO BTs Ext Warm. pale, 2+ LE edema to knees IVs and Medications Medications Reviewed: Medications were reviewed in detail Lab and Diagnostics Labs reviewed in detail Result Diagram: 04/15/17 0450 04/15/17 0450 X-Rays, CTs and MRIs CT ANGIO CHEST PULMONARY EMBOLISM 1. Slight decrease in severe pulmonary embolic disease with resolution of the previously seen saddle embolus spanning the main pulmonary artery bifurcation. However, significant embolic burden remains bilaterally. 2. Improved aeration of the left lower lobe. Decreased right lower lobe pneumonia. 3. Moderate ascites and severe hepatic metastatic disease. 4. Healing left rib fractures. 5. Gastroesophageal reflux. Dictated by: Landon Noel M.D. on 04/11/2017 at 10:12 CT ABDOMEN AND PELVIS WITH CONTRAST 1. Interval increased amount of large abdominal and pelvic ascites, presumably from peritoneal carcinomatosis. 2. Numerous variably sized hepatic metastases again noted, most confluent in the left hepatic lobe. 3. 6.4 x 5.5 x 3.5 cm left pelvic cystic lesion appears to arise from the left seminal vesicle. 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 4. Small bibasilar mobile pleural effusions, with associated compressive atelectasis. Dictated by: Moisés Brasher M.D. on 04/11/2017 at 10:32 Chest x-ray Stable pulmonary venous engorgement and support devices. Dictated by: New Powers M.D. on 04/03/2017 at 11:01 CT angiogram 1. Multiple, bilateral large pulmonary emboli. 2. Flattening of the cardiac interventricular septum suggesting right heart strain. 3. Hepatic metastatic disease. 4. Findings telephoned to Dr. Nathan Paz on 04/03/17 at 0817 hrs. Dictated by: Louisa Jones MD, PhD on 04/03/2017 at 8:13 Chest x-ray 1. Endotracheal tube and nasogastric tube positioned as described. 2. Mild cardiomegaly and moderate vascular congestion. Dictated by: Tristin Mckenzie M.D. on 04/03/2017 at 9:55 Chest x-ray 1. Endotracheal tube is positioned at the thoracic inlet. 2. Mild cardiomegaly and vascular congestion is similar to the prior study. Dictated by: Tristin Mckenzie M.D. on 04/03/2017 at 10:03 US ABDOMEN IMPRESSION: 4 quadrant mild ascites noted, growing mass lesions throughout the liver parenchyma. Nonvisualization of the left kidney due to overlying bowel gas and inability of the patient to fully cooperate with positioning and breath holding. Dictated by: Donnie Harrington M.D. on 04/10/2017 CT ANGIO CHEST PULMONARY EMBOLISM IMPRESSION: 1. Slight decrease in severe pulmonary embolic disease with resolution of the previously seen saddle embolus spanning the main pulmonary artery bifurcation. However, significant embolic burden remains bilaterally. 2. Improved aeration of the left lower lobe. Decreased right lower lobe pneumonia. 3. Moderate ascites and severe hepatic metastatic disease. 4. Healing left rib fractures. 5. Gastroesophageal reflux. Dictated by: Landon Noel M.D. on 04/11/2017 CT ABDOMEN AND PELVIS WITH CONTRAST IMPRESSION: 1. Interval increased amount of large abdominal and pelvic ascites, presumably from peritoneal carcinomatosis. 2. Numerous variably sized hepatic metastases again noted, most confluent in the left hepatic lobe. 3. 6.4 x 5.5 x 3.5 cm left pelvic cystic lesion appears to arise from the left seminal vesicle. 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 4. Small bibasilar mobile pleural effusions, with associated compressive atelectasis. Dictated by: Moisés Brasher M.D. on 04/11/2017 Additional Diagnostics PROCEDURE: US ABDOMEN FINDINGS: Liver: Liver is enlarged in size and heterogeneous in echotexture with multiple hepatic mass lesions previously identified again seen, having enlarged in size from the comparison ultrasound 03/07/17 and the largest measures up to 5.5 x 5.0 x 4.3 cm. Gallbladder: The gallbladder watts just above the upper limits of normal at 3.1 mm, and appears to contain sludge. A small amount of adjacent free fluid can be seen. Biliary ducts: Intrahepatic bile ducts are non-dilated. Extrahepatic bile duct caliber measures 3.5 mm. Normal is 6-7 mm or less in diameter, or 10 mm or less post-cholecystectomy. Pancreas: Visualized portions of the pancreas are sonographically normal. Spleen: Spleen is normal in size and homogeneous in echotexture. Kidneys: The right kidney is normal in size and echotexture. Right kidney measures 16.3 cm long; left kidney could not be seen. No solid masses. Aorta: Visualized aorta is normal in caliber at less than 3 cm. Iliacs: Proximal common iliac arteries are normal in caliber at less than 2.5 cm. IVC: Intrahepatic inferior vena cava is patent. Miscellaneous: There is mild for quadrant abdominal free fluid. IMPRESSION: 4 quadrant mild ascites noted, growing mass lesions throughout the liver parenchyma. Nonvisualization of the left kidney due to overlying bowel gas and inability of the patient to fully cooperate with positioning and breath holding. Dictated by: Donnie Harrington M.D. 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 He is receiving Ertapenem for a MSSA pneumonia and as empiric coverage for intrabdominal sepsis. He began FOLFOX 04/13. IMP Resp failure Multifactorial with massive PE, LLL PNA and marked abdominal distension all contributing. There has been NO radiographic resolution of his extensive bilateral PE's despite EKOS and systemic anticoagulation with heparin and argatroban now. His tense ascites has been drained x2 but is reaccumulating as anticipated. His FiO2 has remained stable over night. I doubt he would survive more than a few hours if extubated today as he is so weak, septic, hypoxemic and would require large doses of opiates and probably benzodiazepines to maintain comfort. Will continue to reevaluate daily for vent liberation but not likely until he has completed chemo. Day #5 empiric ertapenem for LLL PNA. Following the removal of 6 L ascitic fluid 04/12, his O2 requirements decreased and he appears more comfortable. PE Bilat Massive PE. Had RV pressure overload on echo but no radiographic improvement after EKOS and anticoagulation on followup CTs. Possible this is not all thrombosis but instead some degree of tumor emboli given extent of hepatic involvement. He is undoubtably thrombophilic due to his advanced gastric cancer. Systemic thrombolysis, even at reduced dose not a safe option given his history of Gastric tumor and recent GI bleeds requiring transfusion. An attempt at catheter directed therapy with EKOS has failed and surgical thrombectomy is not a consideration given his primary diagnosis and exceeding grim prognosis based on that. Gastric CA HER 2 negative and he has started FOLFOX and will complete cycle #1 this afternoon. His new hyperkalemia, rising PO4 and uric acid as well as decline in HCO3 raise suspicion for early tumor lysis. Serial BMP, uric acid , K+, and ABG ordered. TPN has been adjusted. May need to hold lipids if PO4 continues to rise. No utility for gut PO4 binders as he has no gut function. His family decided to begin chemotherapy and have been fully and repeatedly informed of the significant risks for catastrophic complications for which there may be no effective treatment. In the event of a cardiac arrest, he is now DNAR. Ascites A reflection of his elevated RV pressure and hypoalbuminemia along with tumor involvement. Improved after 6 L removed 04/12. Given total 75 gms albumin following the last procedure. Will require repeat today. Hyperglycemia TPN, Decadron and stress all contribute. Adjusted SQ sliding scale, Can add insulin to TPN if daily requirement excessive. 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 For now renal fxn and UOP are adequate and there is no indication for renal replacement. Bang Mathis Documented family history and almost certainly the cause of his advanced gastric adenocarcinoma REC FOLFOX per Oncology, will complete 5-FU infusion 04/15 Filgrastim per Oncology once chemo completed STAT repeat K+, Uric acid, ABG, Serial labs, Aggressive hydration. Rasburicase if urate > 7.5 Abx per ID Repeat therapeutic large volume paracentesis repeated as needed Continuous sedation with fentanyl, precedex and propofol with daily awakening trial and SBT. Added Zydis 5 q 12 for additional sedation Decadron for antiemesis and adjunctive pain treatment TPN Argatroban GI prophylaxis DNAR Pain Evaluation: Adequate Pain Control GI Prophylaxis: Proton Pump Inhibitor VTE Prophylaxis: Other (Argatroban ggt) Resuscitation Status: DNR/DNI:Do Not Resuscitate/Intubate (max support but DNR) Time spent 55 minutes critical care exclusive of shared time and procedures Dony Vega MD Apr 15, 2017 09:59
[2017-04-15] MEDS ORDERED: ALBUMIN IV ONE (15:20)
[2017-04-15] MEDS: Insulin Human REGular 300 Unit/3 mL Inj SUBQ SCH ×2 (15:44→20:44)
--- NOTE | 2017-04-15 15:47 | PROCED ---
[address] [id number] PROCEDURE NOTE PATIENT: DREA PELAYO : 1990 MR#: [id number] ADMIT: 04/03/2017 JOB ID: [id number] DATE OF SERVICE: 04/15/2017 PROCEDURE: Therapeutic large-volume paracentesis. POSTOPERATIVE DIAGNOSIS(ES): Tense malignant ascites. PREOPERATIVE DIAGNOSIS(ES): Tense malignant ascites. SURGEON: Dony Vega MD. PROCEDURE SUMMARY: After written informed consent from the patient's [facility] power of pre sales systems engineer, ultrasound- guided therapeutic paracentesis was performed. An area in the right lower quadrant where prior paracenteses have been performed was examined with ultrasound and found to have a very large echo-free pocket of fluid. This area was heavily scrubbed with chlorhexidine solution for greater than 1 minute and then sterilely draped. Using sterile technique and full barrier precaution, a 5-Mongolian paracentesis catheter was advanced over needle through the abdominal wall under direct ultrasound guidance. Fluid aspirated easily. The catheter was advanced off the needle and secured. This was attached to a closed suction system and 6 L of thin, relatively clear light yellow fluid were removed under gentle regulated wall suction. The patient appeared to tolerate the procedure well. At completion of the procedure, the catheter was withdrawn and a sterile dressing applied. There was no apparent bleeding or ongoing fluid leak from the puncture site of the abdominal wall. SPECIMENS: None. PATIENT CONDITION FOLLOWING PROCEDURE: Critically ill, as before.
--- NOTE | 2017-04-15 16:00 | NUR ---
Paracentesis Procedure completed w/o complications w/ bedside US guidance. 6,000cc clear akin abd fluid obtained. VVS throughout; pt heavily sedated on Vent. No indications of pain or discomfort. Pt's family updated freq throughout day by MD/RN/RT.
--- NOTE | 2017-04-15 16:53 | PCM.PNMED ---
Subjective Date of Service Apr 15, 2017 Subjective Mr Malloy is a 27 yo male recently diagnosed with gastric and no carcinoma with metastases to the liver, presented to hospital with saddle pulmonary embolism and respiratory failure. FiO2 0.6, continuous 5-FU infusion therapy. No significant events reported Today received another therapeutic paracentesis with 6 L taken off Exam Vital Signs Vital Sign - Last Date Time Temp Pulse Resp B/P Pulse Ox O2 Delivery O2 Flow Rate FiO2 04/15/17 12:45 76 113/53 96 55 04/15/17 08:30 38.0 22 Mechanical Ventilator Intake and Output 04/14/17 04/14/17 04/15/17 Cumulative From/Thru 15:00 23:00 07:00 04/03/17 07:34 - 04/15/17 06:21 Intake Total 4485 ml 2508 ml 77398 ml Output Total 1060 ml 1140 ml 06576 ml Balance 3425 ml 1368 ml 04725 ml Intake Oral 0 ml IV Total 3660 ml 1922 ml 63010 ml Tube Feeding 1407 ml TPN/PPN 825 ml 586 ml 8419 ml Packed Cells 351 ml Tube Irrigant 480 ml Output Urine Total 800 ml 650 ml 84102 ml Gastric Drainage Total 10 ml 150 ml 1235 ml Drainage Total 6600 ml Other 250 ml 340 ml 840 ml # Bowel Movements 0 0 0 Exam General: Intubated and sedated. HEENT: Normocephalic, atraumatic Cardiovascular: Regular rate and rhythm Pulmonary: Bilateral inspiratory/expiratory crackles, lung sounds diminished Abdomen: Soft to palpation, no appreciable fluid wave. 6 L ascitic fluid taken off today Extremities: Lower extremity pitting edema to mid tibia. Bilateral upper extremity hand edema. Peripheral pulses intact Skin: Warm to palpation, normal turgor Neurological: Intubated and sedated Lab and Diagnostics Result Diagram: 04/15/17 0450 04/15/17 1030 X-Rays, CTs and MRIs CT ANGIO CHEST PULMONARY EMBOLISM 1. Slight decrease in severe pulmonary embolic disease with resolution of the previously seen saddle embolus spanning the main pulmonary artery bifurcation. However, significant embolic burden remains bilaterally. 2. Improved aeration of the left lower lobe. Decreased right lower lobe pneumonia. 3. Moderate ascites and severe hepatic metastatic disease. 4. Healing left rib fractures. 5. Gastroesophageal reflux. Dictated by: Landon Noel M.D. on 04/11/2017 at 10:12 CT ABDOMEN AND PELVIS WITH CONTRAST 1. Interval increased amount of large abdominal and pelvic ascites, presumably from peritoneal carcinomatosis. 2. Numerous variably sized hepatic metastases again noted, most confluent in the left hepatic lobe. 3. 6.4 x 5.5 x 3.5 cm left pelvic cystic lesion appears to arise from the left seminal vesicle. 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 4. Small bibasilar mobile pleural effusions, with associated compressive atelectasis. Dictated by: Moisés Brasher M.D. on 04/11/2017 at 10:32 Chest x-ray Stable pulmonary venous engorgement and support devices. Dictated by: New Powers M.D. on 04/03/2017 at 11:01 CT angiogram 1. Multiple, bilateral large pulmonary emboli. 2. Flattening of the cardiac interventricular septum suggesting right heart strain. 3. Hepatic metastatic disease. 4. Findings telephoned to Dr. Nathan Paz on 04/03/17 at 0817 hrs. Dictated by: Louisa Jones MD, PhD on 04/03/2017 at 8:13 Chest x-ray 1. Endotracheal tube and nasogastric tube positioned as described. 2. Mild cardiomegaly and moderate vascular congestion. Dictated by: Tristin Mckenzie M.D. on 04/03/2017 at 9:55 Chest x-ray 1. Endotracheal tube is positioned at the thoracic inlet. 2. Mild cardiomegaly and vascular congestion is similar to the prior study. Dictated by: Tristin Mckenzie M.D. on 04/03/2017 at 10:03 US ABDOMEN IMPRESSION: 4 quadrant mild ascites noted, growing mass lesions throughout the liver parenchyma. Nonvisualization of the left kidney due to overlying bowel gas and inability of the patient to fully cooperate with positioning and breath holding. Dictated by: Donnie Harrington M.D. on 04/10/2017 CT ANGIO CHEST PULMONARY EMBOLISM IMPRESSION: 1. Slight decrease in severe pulmonary embolic disease with resolution of the previously seen saddle embolus spanning the main pulmonary artery bifurcation. However, significant embolic burden remains bilaterally. 2. Improved aeration of the left lower lobe. Decreased right lower lobe pneumonia. 3. Moderate ascites and severe hepatic metastatic disease. 4. Healing left rib fractures. 5. Gastroesophageal reflux. Dictated by: Landon Noel M.D. on 04/11/2017 CT ABDOMEN AND PELVIS WITH CONTRAST IMPRESSION: 1. Interval increased amount of large abdominal and pelvic ascites, presumably from peritoneal carcinomatosis. 2. Numerous variably sized hepatic metastases again noted, most confluent in the left hepatic lobe. 3. 6.4 x 5.5 x 3.5 cm left pelvic cystic lesion appears to arise from the left seminal vesicle. 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 4. Small bibasilar mobile pleural effusions, with associated compressive atelectasis. Dictated by: Moisés Brasher M.D. on 04/11/2017 Additional Diagnostics PROCEDURE: US ABDOMEN FINDINGS: Liver: Liver is enlarged in size and heterogeneous in echotexture with multiple hepatic mass lesions previously identified again seen, having enlarged in size from the comparison ultrasound 03/07/17 and the largest measures up to 5.5 x 5.0 x 4.3 cm. Gallbladder: The gallbladder watts just above the upper limits of normal at 3.1 mm, and appears to contain sludge. A small amount of adjacent free fluid can be seen. Biliary ducts: Intrahepatic bile ducts are non-dilated. Extrahepatic bile duct caliber measures 3.5 mm. Normal is 6-7 mm or less in diameter, or 10 mm or less post-cholecystectomy. Pancreas: Visualized portions of the pancreas are sonographically normal. Spleen: Spleen is normal in size and homogeneous in echotexture. Kidneys: The right kidney is normal in size and echotexture. Right kidney measures 16.3 cm long; left kidney could not be seen. No solid masses. Aorta: Visualized aorta is normal in caliber at less than 3 cm. Iliacs: Proximal common iliac arteries are normal in caliber at less than 2.5 cm. IVC: Intrahepatic inferior vena cava is patent. Miscellaneous: There is mild for quadrant abdominal free fluid. IMPRESSION: 4 quadrant mild ascites noted, growing mass lesions throughout the liver parenchyma. Nonvisualization of the left kidney due to overlying bowel gas and inability of the patient to fully cooperate with positioning and breath holding. Dictated by: Donnie Harrington M.D. 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 Hospital Day 11. #. Massive bilateral pulmonary emboli with obstructive shock, acute. Slowly improving. -There has been no radiographic improvement with bilateral PEs which have been refractory to EKOS and systemic anticoagulation, possibly suspected PEs are in fact tumor emboli. -Confirmed home dose of Lovenox 80 mg daily, most likely missing intermittent dosing prior to admission -Repeat CT shows unchanged clot burden despite treatment with tPA and EKOS 3, possible this is secondary to tumor emboli -Probable lysis not an option secondary to primary diagnosis of gastric tumor and prognosis -Continue with Argatroban drip, monitor PTT level -Continue to attempt to wean FiO2 #. Acute hypoxic respiratory failure, POA ongoing. -ICU/pulmonology team following greatly appreciated recommendations and treatment direction. - Multiple possibilities including pneumonia, PE, tumor emboli, mucous plugging - Bronchoscopy 2 with removal of mucous plug - Continue pressure control mechanical ventilation. Continue to attempt to wean FiO2 - Continue with Precedex, - Sedation vacation successful, though became agitated after being intubated so sedation was increased again #. Gastric adenocarcinoma, has not on admission. Ongoing -ICU team continues [facility] management for patient and care plan. Their time and expertise is greatly appreciated -HER-2 negative -Chemotherapy initiated FOLFOX -Suspicion for tumor lysis syndrome with rising phosphate, uric acid and decrease in bicarbonate. -We will continue to monitor - overlaying grim prognosis #. Pneumonia, not present on admission, improving. -Bronchial washing showed staph aureus, resistant to erythromycin. The patient also has had evidence of left lower lobe collapse likely from secretions. -Discontinued Zosyn, switched to nafcillin - also discontinued -Pro calcitonin continues to trend up though in the setting of liver metastasis unreliable, we will stop following this value -WBC continues to trend down, remains afebrile -ID following, recommendations appreciated -Ertapenem started 04/10/2017 -Bronchoscopy as above -Continue to monitor #. Sepsis secondary to HCAP. Acute and improving. -Most likely MSSA pneumonia, confirmed by bronchoscopy and lavage -CT angio showed bilateral pleural effusions, worsening bibasilar pneumonia pattern, greater on the left than the right. -WBC trending down, afebrile -No longer following Pro calcitonin in the setting of hepatic metastases -Infectious disease following -Antibiotics as above -No vasopressor requirements #. Anasarca, new and active. The patient has significant volume overload from resuscitation. We will continue to monitor and diuresis as able. -1.5 L peritoneal fluid taken off 04/10/2017, additional paracentesis 2016 with 6.5 L taken off -Additional paracentesis today 04/15/2017 with additional 6 L taken off -Albumin replacement -Ascitic fluid shows exudate -Urinary output remains adequate -Continue to monitor #. Acute iron deficiency anemia. Stable. - Secondary to hemodilution from aggressive fluid resuscitation. Possibly secondary to GI bleed from malignant gastric ulcers, but no sign of acute bleed at this time. Hb has been stable, so will switch from PPI drip to BID. - PRBCs on hold. Transfuse for HB <8. - Check H&H daily - Protonix 40 mg IV BID - Monitor for signs of acute bleeding #. Bilateral popliteal DVT, POA and active. - Pt diagnosed with bilateral large DVTs 3 weeks ago, placed on Lovenox at home with possible missed doses - Currently therapeutic on Argatroban #. Hyperbilirubinemia, new and active. - Bilirubin and Alkaline phos trending up; scleral icterus on exam; likely secondary to hepatic metastases. - Abdominal and pelvis CT shows growing mass lesions throughout liver parenchyma #. Constipation. Present on admission Ongoing -Refractory to all multiple enemas including enema with with FMS -Refractory to suppository -Continue aggressive bowel regimen #. Malnutrition. Ongoing -Nutrition following, TPN started with concentrated formula Dangerous meds include fentanyl drip and propofol. Disposition: Remains intubated sedated ICU status Patient is on PPO BID for GI prophylaxis. He is on Argatroban ggt for PE, which is therapeutic. GI Prophylaxis: Proton Pump Inhibitor VTE Prophylaxis: Other (Argatroban ggt) Resuscitation Status: DNR/DNI:Do Not Resuscitate/Intubate (max support but DNR) GI Prophylaxis: Proton Pump Inhibitor VTE Prophylaxis: Other (Argatroban ggt) Resuscitation Status: DNR/DNI:Do Not Resuscitate/Intubate (max support but DNR) Time spent 30 minutes Attending Statement Patient has been seen and examined by myself with anesthesiology medical doctor and agree with above history, physical, assessment and plan. BRICE BROWN DO Apr 15, 2017 16:31 Anna Marino MD Apr 16, 2017 07:00
--- NOTE | 2017-04-15 18:25 | NUR ---
Chemo dc'd Chemo infusion finished at approximately 1800. Infusion taken down and discarded in appropriate storage bin. CCU nurse present and providing primary care.
[2017-04-15] MEDS: ARGATROBAN IV SCH ×2 (19:29)
[2017-04-15] MEDS: SODIUM CHLORIDE IV SCH ×2 (19:29)
[2017-04-15] MEDS: 0.9% Sodium Chloride 1,000 ML IV SCH (19:31)
[2017-04-15] MEDS: Total Parenteral Nutrition 1 BAG IV SCH (20:30)
[2017-04-15] MEDS: TPN Per Pharmacist XX SCH (20:30)
[2017-04-16] VITALS (18 sets, daily range): BP systolic 106–137; BP diastolic 55–71; PULSE 72–100; RESP 12–24; O2SAT 94–99
[2017-04-16] MEDS: 0.9% Sodium Chloride 1,000 ML IV SCH ×2 (00:14→12:25)
[2017-04-16] MEDS: Dexmedetomidine 400 mCg/100 mL 400 MCG in IV Premix 1 EACH IV PRN ×8 (00:14→22:56)
[2017-04-16] MEDS: Chlorhexidine 0.12% 15 mL Oral Solution MT SCH ×4 (01:07→13:11)
[2017-04-16] MEDS: Propofol Inj 1,000,000 MCG in IV Premix 1 EACH IV PRN ×3 (01:07→07:18)
--- NOTE | 2017-04-16 01:42 | NUR ---
respiratory/comfort .45 fio2 per vent, sats 95-97%, hob up, resp rate=14-18/12, ls-decreased, no desats noted tonight, pt tolerating turning better then last weekend, no sputum per ett, oral care done, 30-40mcg propofol bolus given with turning or stimulation with assessment, effective for comfort, propofol gtt at 50mcg/kg/min, fentanyl gtt at 300mcg/hr, precedex gtt at 1.4mcg/kg/hr (order on chart), pt calm and appears comfortable at rest, tolerating clrt well, pt opens eyes and gross arm motor movement seen when stimulated, does not follow commands, cvp=8, good akin uop per f/c, no bt's noted, abd still somewhat round and firm post paracentesis 04/15, no bm, ogt to lcs, sml amt brownish green output, placement of ogt wnl per auscultation, uap=8, tpn per orders, date on orders comfirmed with pharmacy, ostomy bag over right groin ekos site due to serous drainage, argatroban gtt per pharmcy dosage, see ptt, right a line intact, left picc intact, md aware of bmp results, ns rate decreased to 50ml/hr, full bed bath given, all linens changed, no desating during bath/turning, turn q2hrs, clrt, chemo precautions reviewed with family -expressed understanding per chemo nurse instructions, family updated on pt care, family did not express any concerns or complaints about pt care tonight, see ccu flow sheet, plan:continue chemo precautions for total of 48hrs post chemo dose, resp support, comfort, Addendum: 04/16/17 at 0620 by REESE DECKER RN paged this am with sodium/chloride/bicarb, no new orders,
[2017-04-16] MEDS: Insulin Human REGular 300 Unit/3 mL Inj SUBQ SCH ×4 (03:13→21:13)
[2017-04-16 03:25] LABS: BASOPHILS % (AUTO) 0.1 % (0-3); EOSINOPHILS % (AUTO) 0 % (0-5); MONOCYTES % (AUTO) 0.1 % (4-12); Mean Corpuscular Hemoglobin 23.3 pg (27.0-35.0); Mean Corpuscular Volume 72.9 fL (81-100); NEUTROPHILS % (AUTO) 97.3 % (40-74); Platelet Count 590 bil/L (150-400)
[2017-04-16 04:01] LABS: Magnesium 2.6 mg/dL (1.6-2.6); Phosphorus 3.4 mg/dL (2.5-4.9)
--- NOTE | 2017-04-16 05:08 | ABG ---
DateTimeAnalyzed 04:59:00 -_ pH ____7.310 - 7.350 7.450 pCO2 ___37.4__ -mmHg 35.0 45.0 pO2 ___84.7__ -mmHg 69.0 116 HCO3- ___18.3__ -mmol/L 22.0 26.0 ABE ___-6.8__ -mmol/L -2.0 2.0 tHb ____8.5__ -g/dL 12.0 18.0 O2Hb ___93.8__ -% COHb ____1.0__ -% 0.0 1.5 MetHb ____1.1__ -% 0.4 1.5 sO2 ___95.8__ -% 25.0 FIO2 ___45.0__ -% PEEP ___10.0__ -cmH2O Set_RR ___12.0__ -b/min Vt __730.0__ -L Drawn By MM - Oxygen Device 2 PRESSURE CONTROL -____ Date/Time Notified____ 05:07:00 -_ Spontaneous_RR ___14.0__ -b/min Oxygen Device 1 VENTILATOR - Notified By MM - Notified Whom kUNNY, HERLICKSON RN - B 756 -mmHg tO2 ___11.3__ -Vol% Yaakov test N/A -
[2017-04-16] MEDS: fentaNYL 2,500 mCg/250 mL 2,500 MCG in IV Premix 1 EACH IV SCH ×2 (05:59→17:40)
[2017-04-16] MEDS: Ertapenem Inj 1,000 MG in 0.9% Sodium Chloride 50 ML IV SCH (07:58)
[2017-04-16] MEDS: Pantoprazole 4 mg/mL 10 mL Inj IVPUSH SCH ×2 (07:58→16:18)
[2017-04-16] MEDS: Dexamethasone 4 mg/mL Inj IVPUSH SCH ×2 (07:59→21:06)
[2017-04-16] MEDS: [UNRECOGNIZED DRUG - REMARK] XX SCH (08:03)
[2017-04-16] MEDS ORDERED: HYDROmorphone PCA 0.2 mg/mL 30 mL Inj IV PRN (08:10)
[2017-04-16] MEDS: OLANZapine Zydis ODT 5 mg Tablet PO SCH ×2 (10:11→21:06)
--- NOTE | 2017-04-16 10:14 | PROG NOTE ---
[address] [address] PROGRESS NOTE PATIENT: DREA PELAYO : 1990 MR#: [id number] ADMIT: 04/03/2017 JOB ID: [id number] DATE: 04/16/2017 REASON FOR FOLLOWUP: Right-sided pulmonary infiltrate with MSSA colonization or infection in a patient with metastatic gastric carcinoma. INTERVAL HISTORY: Over the weekend, the patient completed a 48-hour FOLFOX chemotherapy infusion which he tolerated well. Today, he remains on the ventilator, but he is awake and able to respond somewhat. Pressure support trials are underway with the plan for weaning today or tomorrow. This case was discussed with the ICU team as well as the patient's family. The patient is lethargic enough that we cannot obtain any additional history from him, though he clearly can be can answer a few questions yes and no. PHYSICAL EXAMINATION: Reveals an afebrile gentleman, temperature 36.7, pulse 78, respiratory rate 12, blood pressure 123/55. He is saturating pretty well on 40% on the ventilator and is currently doing a pressure support trial and doing very well with that. His eyes reveal some conjunctival pallor. His oral endotracheal tube and orogastric tube are in good position. Neck without obvious abnormality. Lungs are surprisingly clear anteriorly. Cardiac tones without murmur. Abdomen is distended with what is malignant ascites, but the level of distention is much less than it was prior to his large volume paracentesis on Sunday. The extremities still with profound 4+ edema in the lower legs and ankles. No skin rash noted. LABORATORIES: Include white count more or less stable at 27,000. Diff is little change from prior. Platelets 590. Creatinine 0.7. LFTs notable for alk phos 446. Procalcitonin is 11. Note that his procalcitonins are consistently uninterpretable and have been somewhere around 10 since admission, and I think these are elevated on the basis of malignancy, and I would stop checking these. Peritoneal fluid from the is not consistent with bacterial peritonitis. Micro includes the two bronch washes from the and both of which grew Staph aureus which was MSSA. Because of concerns about aspiration we have continued with ertapenem. IMAGING: Includes chest x-rays. We looked at today's chest x-ray, it continues to show right basilar infiltrates as multiple films prior have also shown. IMPRESSION: This patient is doing reasonably well on the ventilator and actually seems to be moving gradually towards extubation. He has had a great deal of malignant peritoneal fluid removed which seems to have helped his ventilatory status and most importantly has now started his chemotherapy. At this point, I am comfortable with ertapenem as a sole antibiotic even though it lacks Pseudomonas coverage though that may change as his condition evolves. RECOMMENDATIONS: 1. Will continue with ertapenem for aspiration pneumonia and possible MSSA respiratory tract infection. 2. Will continue to closely watch this patient with you as efforts are made towards extubation over the next day or so.
--- NOTE | 2017-04-16 10:40 | NUR ---
NUTRITION FOLLOW-UP: ASSESS: 27 YO male with a recent diagnosis of metastatic gastric cancer with family history of Peutz-Jeghers syndrome admitted to CCU for bilateral DVTs and sudden onset shortness of breath. Pt remains intubated, with an apparent ileus, as evidenced by lack of any stool since admission x 13 days. Enteral feeding was discontinued due to high residuals. TPN was initiated 04/09, and rate is currently meeting macronutrient goals. Labs remain concerning, as Total Bili, AST, & ALT remain elevated, likely related to liver status. Paracentesis yesterday removed ~6600 ml malignant fluid. Pt received FOLFOX chemotherapy. PMHx: Metastatic gastric cancer, upper GI bleed, liver biopsy, Peutz-Jeghers syndrome, LE DVTs. DIET: NPO. ENTERAL FEEDING: OFF TPN: 300 g Dex, 120 g AA, 10 g lipids providing 1600 kcal (2242 kcal TPN+Propofol), 120 g protein; 100% estimated needs. LABS: Reviewed. Na 145, BUN 68, Cr 0.70, Glu 212, Ca 8.2, T.bili 4.8, AST 145, ALT 69, Alb 2.2 MEDICATIONS: Reviewed. Insulin, Fentanyl, Decadron. Propofol rate currently 24.3 ml/hr providing 642 lipid kcal. GI: No stool reported. SKIN: No issues reported. ANTHROPOMETRICS: Current Wt: 79.7 kg, BMI 19.8 kg/m2. Admit weight: 81.0, IBW: 100 kg (81% IBW) ESTIMATED NEEDS (CANCER/VENT): Calories: 1780-2425kcal/day (22-30kcal/kg BW) Protein: 120-145 g/day (1.5-1.8 g/kg BW) Fluid: Approx. 2425mL (30mL/kg BW) NUTRITION DIAGNOSIS: 1) Inadequate oral intake related to altered GI function, as evidenced by NPO/vent status, enteral feeding on hold - PERSISTS. 2) Increased nutrient needs related to cancer, as evidenced by new gastric cancer w/ liver mets, 81% IBW - PERSISTS. INTERVENTION: 1) Continue current TPN as ordered. MONITOR/EVALUATE: NPO/vent status, TPN tolerance, labs, weight, POC, GI/nutrition status. Follow per high nutrition risk guidelines.
[2017-04-16] MEDS: SODIUM CHLORIDE IV SCH ×4 (11:05→23:21)
[2017-04-16] MEDS: ARGATROBAN IV SCH ×4 (11:05→23:21)
--- NOTE | 2017-04-16 11:37 | PROG NOTE ---
[address] [address] PROGRESS NOTE PATIENT: DREA PELAYO : 1990 MR#: [id number] ADMIT: 04/03/2017 JOB ID: [id number] DATE: 04/16/2017 SUBJECTIVE: The patient is a 27-year-old gentleman with metastatic adenocarcinoma, likely gastric in origin, hospitalized since April 03 with massive pulmonary embolism and respiratory failure. He had heparin resistance and is now on Argatroban. CT imaging showed pulmonary emboli, but also severe hepatic metastatic disease, moderate ascites, and peritoneal carcinomatosis. He just completed his first course of FOLFOX chemotherapy in hospital. No identified nausea or vomiting. He remains intubated, now on 45% FiO2. He is awake this morning, and able to respond appropriately with hand signals. He is not in any pain. He does not feel short of breath. He has been afebrile. OBJECTIVE: Vitals: T 36.6, P 72, R 14, blood pressure 123/62, O2 saturation 97% on 45% FiO2 by mechanical ventilator. HEENT: Conjunctivae slightly pale. Mucous membranes moist. He is intubated. Nodes: No adenopathy in the neck or axilla. Chest: A few basilar crackles. Cardiac exam: Regular rate and rhythm with normal S1, S2. Abdomen: Soft, nontender. Active bowel tones. Extremities: 3+ bilateral lower extremity edema. 1+ distal pulses. LABORATORIES: WBC 27.1 with 97% neutrophils, hemoglobin 8.6, hematocrit 26.9%, platelets 590,000. , BUN 63, creatinine 0.63, glucose 196. Microbiology-bronchial washings positive for Staphylococcus aureus. ASSESSMENT AND PLAN: Metastatic HER-2 negative adenocarcinoma, likely gastric in origin: The patient received course one FOLFOX chemotherapy from April 13 through April 15, 2017. No acute toxicities identified. White cell count remains elevated. No indication for growth factor support or transfusions at this time, but continue to monitor. Given concerns for active Staphylococcus aureus infection, have a low threshold for initiating growth factor support. Continue antibiotic coverage per Dr. Goldberg and the Infectious Disease team. Dr. Suazo will return tomorrow to manage his oncologic care. Await results of Peutz-Jeghers syndrome testing. Monitor electrolytes closely and adjust TPN formula appropriately. I discussed findings with the patient and his parents. CC: Arvin Huizar DO
--- NOTE | 2017-04-16 11:51 | PCM.PNMED ---
Subjective Date of Service Apr 16, 2017 Subjective Pulmonary critical care consult requested by Dr. 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 He has been transitioned to Chemotherapy and extubated on 04/16 following 13 days of intubation. Overnight the patient underwent large volume paracentesis with resultant improvement in respiratory parameters. Today that patient was tolerating pressure support trials well, and was becoming quite agitated on the vent, following discussion with the family we proceeded to extubation with minimal difficulty. Exam Vital Signs Vital Sign - Last Date Time Temp Pulse Resp B/P Pulse Ox O2 Delivery O2 Flow Rate FiO2 04/16/17 10:25 91 124/58 94 45 04/16/17 08:00 36.7 12 Mechanical Ventilator Intake and Output 04/15/17 04/15/17 04/16/17 Cumulative From/Thru 15:00 23:00 07:00 04/03/17 07:34 - 04/16/17 06:14 Intake Total 3909 ml 2584 ml 60166 ml Output Total 550 ml 6700 ml 1975 ml 18928 ml Balance -550 ml -2791 ml 609 ml 43917 ml Intake Oral 0 ml IV Total 3422 ml 1911 ml 65794 ml Tube Feeding 1407 ml TPN/PPN 487 ml 673 ml 9579 ml Packed Cells 351 ml Tube Irrigant 480 ml Output Urine Total 550 ml 350 ml 1500 ml 52986 ml Gastric Drainage Total 50 ml 50 ml 1335 ml Drainage Total 6000 ml 02910 ml Other 300 ml 425 ml 1565 ml # Bowel Movements 0 0 0 Exam Gen: Alert but minimally oriented very tall slender young man in moderate acute distress secondary to anxiety and pain Neck: Supple, right IJ in place, no JVD, Full ROM HEENT: PERRL, EOMI, no scleral icterus, no conjunctival pallor CV: Tachycardia with regular rhythm, no murmurs rubs or gallops Resp: mild diffuse expiratory wheezing, coarse upper respiratory sounds Abd: Distended and slightly firm, diminished bowel sounds 4Q, diffusely painful to palpation Extr: Mild-moderate BL LE pitting edema, exceptionally long limbed, no clubbing or cyanosis Neuro: CN 2-12 grossly intact, no focal neurologic deficit Psych: Significant agitation and anxiety with visible pain response IVs and Medications Medications Reviewed: Medications were reviewed in detail Lab and Diagnostics Result Diagram: 04/16/17 0245 04/16/17 0830 Microbiology Bronchial washing grew MSSA 04/09 X-Rays, CTs and MRIs CT ANGIO CHEST PULMONARY EMBOLISM 1. Slight decrease in severe pulmonary embolic disease with resolution of the previously seen saddle embolus spanning the main pulmonary artery bifurcation. However, significant embolic burden remains bilaterally. 2. Improved aeration of the left lower lobe. Decreased right lower lobe pneumonia. 3. Moderate ascites and severe hepatic metastatic disease. 4. Healing left rib fractures. 5. Gastroesophageal reflux. Dictated by: Landon Noel M.D. on 04/11/2017 at 10:12 CT ABDOMEN AND PELVIS WITH CONTRAST 1. Interval increased amount of large abdominal and pelvic ascites, presumably from peritoneal carcinomatosis. 2. Numerous variably sized hepatic metastases again noted, most confluent in the left hepatic lobe. 3. 6.4 x 5.5 x 3.5 cm left pelvic cystic lesion appears to arise from the left seminal vesicle. 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 4. Small bibasilar mobile pleural effusions, with associated compressive atelectasis. Dictated by: Moisés Brasher M.D. on 04/11/2017 at 10:32 Chest x-ray Stable pulmonary venous engorgement and support devices. Dictated by: New Powers M.D. on 04/03/2017 at 11:01 CT angiogram 1. Multiple, bilateral large pulmonary emboli. 2. Flattening of the cardiac interventricular septum suggesting right heart strain. 3. Hepatic metastatic disease. 4. Findings telephoned to Dr. Nathan Paz on 04/03/17 at 0817 hrs. Dictated by: Louisa Jones MD, PhD on 04/03/2017 at 8:13 Chest x-ray 1. Endotracheal tube and nasogastric tube positioned as described. 2. Mild cardiomegaly and moderate vascular congestion. Dictated by: Tristin Mckenzie M.D. on 04/03/2017 at 9:55 Chest x-ray 1. Endotracheal tube is positioned at the thoracic inlet. 2. Mild cardiomegaly and vascular congestion is similar to the prior study. Dictated by: Tristin Mckenzie M.D. on 04/03/2017 at 10:03 US ABDOMEN IMPRESSION: 4 quadrant mild ascites noted, growing mass lesions throughout the liver parenchyma. Nonvisualization of the left kidney due to overlying bowel gas and inability of the patient to fully cooperate with positioning and breath holding. Dictated by: Donnie Harrington M.D. on 04/10/2017 CT ANGIO CHEST PULMONARY EMBOLISM IMPRESSION: 1. Slight decrease in severe pulmonary embolic disease with resolution of the previously seen saddle embolus spanning the main pulmonary artery bifurcation. However, significant embolic burden remains bilaterally. 2. Improved aeration of the left lower lobe. Decreased right lower lobe pneumonia. 3. Moderate ascites and severe hepatic metastatic disease. 4. Healing left rib fractures. 5. Gastroesophageal reflux. Dictated by: Landon Noel M.D. on 04/11/2017 CT ABDOMEN AND PELVIS WITH CONTRAST IMPRESSION: 1. Interval increased amount of large abdominal and pelvic ascites, presumably from peritoneal carcinomatosis. 2. Numerous variably sized hepatic metastases again noted, most confluent in the left hepatic lobe. 3. 6.4 x 5.5 x 3.5 cm left pelvic cystic lesion appears to arise from the left seminal vesicle. 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 4. Small bibasilar mobile pleural effusions, with associated compressive atelectasis. Dictated by: Moisés Brasher M.D. on 04/11/2017 Cardiac Echo Impressions Interpretation Summary Severely dilated right ventricle with moderate to severely reduced systolic function. Thrombus is visualized in the right ventricle. There is a catheter seen in the right atrium. Comparison is made with the echocardiogram of 04/03/2017, right ventricle size has decreased slightly. Electronically signed by: Karishma Morrow on Reading Physician:04/05/2017 02:03 PM . Additional Diagnostics PROCEDURE: US ABDOMEN FINDINGS: Liver: Liver is enlarged in size and heterogeneous in echotexture with multiple hepatic mass lesions previously identified again seen, having enlarged in size from the comparison ultrasound 03/07/17 and the largest measures up to 5.5 x 5.0 x 4.3 cm. Gallbladder: The gallbladder watts just above the upper limits of normal at 3.1 mm, and appears to contain sludge. A small amount of adjacent free fluid can be seen. Biliary ducts: Intrahepatic bile ducts are non-dilated. Extrahepatic bile duct caliber measures 3.5 mm. Normal is 6-7 mm or less in diameter, or 10 mm or less post-cholecystectomy. Pancreas: Visualized portions of the pancreas are sonographically normal. Spleen: Spleen is normal in size and homogeneous in echotexture. Kidneys: The right kidney is normal in size and echotexture. Right kidney measures 16.3 cm long; left kidney could not be seen. No solid masses. Aorta: Visualized aorta is normal in caliber at less than 3 cm. Iliacs: Proximal common iliac arteries are normal in caliber at less than 2.5 cm. IVC: Intrahepatic inferior vena cava is patent. Miscellaneous: There is mild for quadrant abdominal free fluid. IMPRESSION: 4 quadrant mild ascites noted, growing mass lesions throughout the liver parenchyma. Nonvisualization of the left kidney due to overlying bowel gas and inability of the patient to fully cooperate with positioning and breath holding. Dictated by: Donnie Harrington M.D. 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 Hospital Day 14 Acute Hypoxemic respiratory failure, POA. Improving - Likely is multifactorial with the pneumonia, pulmonary embolism, and mucous plugging. S/p bronchoscopy x2. - Patient extubated 04/16, will saturate well following active cough, but is somnolent and will desat when not actively reminded to cough - Will continue with Precedex to control anxiety Sepsis due to left lower lobe MSSA pneumonia, Improved. - Appears to be methicillin-sensitive Staphylococcus aureus, confirmed by bronchoscopy and lavage on 04/06. The bronch wash from the also grows Staph aureus, pending susceptibilities. - WBC consistently elevated - Appreciate Dr. Goldberg's input. Per ID, patient is clearly colonized in his airway with methicillin sensitive Staphylococcus aureus and there may be some degree of MSSA tracheal bronchitis, but not MSSA pneumonia at this time - Per Dr. Goldberg's recommendations, will continue with empirical antibiotic with Ertapenem, which has good activity against MSSA and provides some broader spectrum coverage for aspiration type pneumonia. Day 7 on Ertapenem. - No other apparent source of infection. The first ascitic fluid analysis showed 343 white cells in the peritoneal fluid, 50% were polys, so this does not meet the standard criteria for bacterial peritonitis. Culture shows no growth so far. - UA on 04/11/17 was negative for infection. Acute bilateral massive pulmonary embolism with obstructive shock, POA, active. - RV pressure overload on echo and no radiographic resolution of his extensive bilateral PE's despite EKOS and systemic anticoagulation with heparin and now argatroban. - Possible this is not all thrombosis but might have some degree of tumor emboli given extent of hepatic involvement. - Systemic thrombolysis not an option given his history of Gastric tumor and recent GI bleeds requiring transfusion. Surgical thrombectomy is also not a consideration given his grim primary diagnosis. - Continue with Argatroban drip and monitor PTT level. Abdominal ascites, POA, acute. Active - Likely a reflection of his elevated RV pressure and hypoalbuminemia along with his tumor involvement. - Large volume paracentesis x3 - Albumin replacement given today due large volume paracentesis. Continue to monitor BP. - Studies of the ascitic fluid from the first paracentesis on 04/10/17 showed that the SAAG is 0.8, consistent with an exudative type ascites. Hyperbilirubinemia, POA, acute. Active - Bilirubin and Alkaline phos are elevated but stable; likely secondary to hepatic metastases. - Abdominal U/S and abdominal/pelvis CT showed growing mass lesions throughout the liver parenchyma. Metastatic liver cancer due to poorly differentiated adenocarcinoma. - CT abd/pelvis on 04/11/17 revealed numerous variably sized hepatic metastases, most confluent in the left hepatic lobe. - Per discussion with family we have elected to proceed with Chemotherapy with FOLFOX per Heme/Onc - Associated risks of beginning CHEMO include: 1) bleeding into liver or gut due to tumor necrosis while anticoagulated, 2) severe sepsis in the face of underlying partially treated bacterial infection, 3) tumor lysis syndrome, 4) Perforated bowel/stomach - HER 2 negative - Actively monitoring K/Phos/Uric acid to track for potential tumor lysis syndrome - Multidisciplinary meeting with Oncology and Palliative Care to define goals of care and code status. Other medical issues will be managed by the primary care team: #. Constipation. #. Malnutrition. #. Anasarca, new and active. #. Acute iron deficiency anemia. #. Bilateral popliteal DVT, POA and active. Pain Evaluation: Adequate Pain Control GI Prophylaxis: Proton Pump Inhibitor VTE Prophylaxis: Other (Argatroban ggt) Resuscitation Status: DNR/DNI:Do Not Resuscitate/Intubate (max support but DNR) Ryan Michel DO Apr 16, 2017 11:51 Disposition: Remains intubated sedated ICU status Patient is on PPO BID for GI prophylaxis. He is on Argatroban ggt for PE, which is therapeutic. GI Prophylaxis: Proton Pump Inhibitor VTE Prophylaxis: Other (Argatroban ggt) Resuscitation Status: DNR/DNI:Do Not Resuscitate/Intubate (max support but DNR) GI Prophylaxis: Proton Pump Inhibitor VTE Prophylaxis: Other (Argatroban ggt) Resuscitation Status: DNR/DNI:Do Not Resuscitate/Intubate (max support but DNR) Ryan Michel DO Apr 16, 2017 11:51
--- NOTE | 2017-04-16 12:08 | DRSVH ---
PROCEDURE: X-RAY CHEST ONE VIEW, PORTABLE ([id number]) INDICATIONS: respiratory failure TECHNIQUE: One view of the chest was acquired. COMPARISON: [facility], CR, XR CHEST 1VW (PORTABLE), 04/10/2017, 7:23. [facility], CR, XR CHEST 1VW (PORTABLE), 04/15/2017, 4:43. FINDINGS: Surgical changes and devices: ETT tip projects 6.8 cm above the alen. Nasogastric tube and left PI CC. Lungs and pleura: No pleural effusions or pneumothorax. Mid right and bibasilar airspace opacities not significantly changed. No pneumothorax. Mediastinum: Mediastinal contours appear normal. Heart size is normal. Bones and chest wall: No suspicious bony lesions. Overlying soft tissues appear unremarkable. IMPRESSION: Bilateral pulmonary airspace opacities similar to prior examination suggesting bilateral aspiration versus pneumonia. Dictated by: Jak Ortiz RRA Interpreted: Paul Nieves MD on 04/16/2017 at 8:39 Approved by: Paul Nieves M.D. on 04/16/2017 at 12:07
--- NOTE | 2017-04-16 12:27 | PCM.PNMED ---
Subjective Date of Service Apr 16, 2017 Subjective Tolerated SBT of 5/5 on FiO2 0.45 for more than 30 minutes and was extubated, first to NC and now to high flow NC. Alert,garbled speech. somewhat anxious and frustrated, wanting something to drink Effective cough with coaching SpO2 93-94% on high flow NC 50 L/min, 0.6 Prior to extubation this morning I spoke with Curtis's family including mother, father, and sisters to request that they give us guidance whether to reintubate Curtis in the case of recurrent refractory respiratory failure. I emphasized that we have fully and aggressively treated all of his know diagnoses and use of a ventilator in this setting would not change his ultimate outcome in my opinion.. They have met as a family and all agree that Curtis should NOT be INTUBATED in the event of recurrent respiratory failure, If he develops air hunger and hypoxemia despite all measures, we will focus on maintaining comfort by beginning morphine infusion to control symptoms. Exam Vital Signs Vital Sign - Last Date Time Temp Pulse Resp B/P Pulse Ox O2 Delivery O2 Flow Rate FiO2 04/16/17 10:25 91 124/58 94 45 04/16/17 08:00 36.7 12 Mechanical Ventilator Intake and Output 04/15/17 04/15/17 04/16/17 Cumulative From/Thru 15:00 23:00 07:00 04/03/17 07:34 - 04/16/17 06:14 Intake Total 3909 ml 2584 ml 71293 ml Output Total 550 ml 6700 ml 1975 ml 59537 ml Balance -550 ml -2791 ml 609 ml 79926 ml Intake Oral 0 ml IV Total 3422 ml 1911 ml 76629 ml Tube Feeding 1407 ml TPN/PPN 487 ml 673 ml 9579 ml Packed Cells 351 ml Tube Irrigant 480 ml Output Urine Total 550 ml 350 ml 1500 ml 49027 ml Gastric Drainage Total 50 ml 50 ml 1335 ml Drainage Total 6000 ml 96779 ml Other 300 ml 425 ml 1565 ml # Bowel Movements 0 0 0 Lab and Diagnostics Result Diagram: 04/16/17 0245 04/16/17 0830 Microbiology Bronchial washing grew MSSA 04/09 X-Rays, CTs and MRIs CT ANGIO CHEST PULMONARY EMBOLISM 1. Slight decrease in severe pulmonary embolic disease with resolution of the previously seen saddle embolus spanning the main pulmonary artery bifurcation. However, significant embolic burden remains bilaterally. 2. Improved aeration of the left lower lobe. Decreased right lower lobe pneumonia. 3. Moderate ascites and severe hepatic metastatic disease. 4. Healing left rib fractures. 5. Gastroesophageal reflux. Dictated by: Landon Noel M.D. on 04/11/2017 at 10:12 CT ABDOMEN AND PELVIS WITH CONTRAST 1. Interval increased amount of large abdominal and pelvic ascites, presumably from peritoneal carcinomatosis. 2. Numerous variably sized hepatic metastases again noted, most confluent in the left hepatic lobe. 3. 6.4 x 5.5 x 3.5 cm left pelvic cystic lesion appears to arise from the left seminal vesicle. 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 4. Small bibasilar mobile pleural effusions, with associated compressive atelectasis. Dictated by: Moisés Brasher M.D. on 04/11/2017 at 10:32 Chest x-ray Stable pulmonary venous engorgement and support devices. Dictated by: New Powers M.D. on 04/03/2017 at 11:01 CT angiogram 1. Multiple, bilateral large pulmonary emboli. 2. Flattening of the cardiac interventricular septum suggesting right heart strain. 3. Hepatic metastatic disease. 4. Findings telephoned to Dr. Nathan Paz on 04/03/17 at 0817 hrs. Dictated by: Louisa Jones MD, PhD on 04/03/2017 at 8:13 Chest x-ray 1. Endotracheal tube and nasogastric tube positioned as described. 2. Mild cardiomegaly and moderate vascular congestion. Dictated by: Tristin Mckenzie M.D. on 04/03/2017 at 9:55 Chest x-ray 1. Endotracheal tube is positioned at the thoracic inlet. 2. Mild cardiomegaly and vascular congestion is similar to the prior study. Dictated by: Tristin Mckenzie M.D. on 04/03/2017 at 10:03 US ABDOMEN IMPRESSION: 4 quadrant mild ascites noted, growing mass lesions throughout the liver parenchyma. Nonvisualization of the left kidney due to overlying bowel gas and inability of the patient to fully cooperate with positioning and breath holding. Dictated by: Donnie Harrington M.D. on 04/10/2017 CT ANGIO CHEST PULMONARY EMBOLISM IMPRESSION: 1. Slight decrease in severe pulmonary embolic disease with resolution of the previously seen saddle embolus spanning the main pulmonary artery bifurcation. However, significant embolic burden remains bilaterally. 2. Improved aeration of the left lower lobe. Decreased right lower lobe pneumonia. 3. Moderate ascites and severe hepatic metastatic disease. 4. Healing left rib fractures. 5. Gastroesophageal reflux. Dictated by: Landon Noel M.D. on 04/11/2017 CT ABDOMEN AND PELVIS WITH CONTRAST IMPRESSION: 1. Interval increased amount of large abdominal and pelvic ascites, presumably from peritoneal carcinomatosis. 2. Numerous variably sized hepatic metastases again noted, most confluent in the left hepatic lobe. 3. 6.4 x 5.5 x 3.5 cm left pelvic cystic lesion appears to arise from the left seminal vesicle. 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 4. Small bibasilar mobile pleural effusions, with associated compressive atelectasis. Dictated by: Moisés Brasher M.D. on 04/11/2017 Cardiac Echo Impressions Interpretation Summary Severely dilated right ventricle with moderate to severely reduced systolic function. Thrombus is visualized in the right ventricle. There is a catheter seen in the right atrium. Comparison is made with the echocardiogram of 04/03/2017, right ventricle size has decreased slightly. Electronically signed by: Karishma Morrow on Reading Physician:04/05/2017 02:03 PM . Additional Diagnostics PROCEDURE: US ABDOMEN FINDINGS: Liver: Liver is enlarged in size and heterogeneous in echotexture with multiple hepatic mass lesions previously identified again seen, having enlarged in size from the comparison ultrasound 03/07/17 and the largest measures up to 5.5 x 5.0 x 4.3 cm. Gallbladder: The gallbladder watts just above the upper limits of normal at 3.1 mm, and appears to contain sludge. A small amount of adjacent free fluid can be seen. Biliary ducts: Intrahepatic bile ducts are non-dilated. Extrahepatic bile duct caliber measures 3.5 mm. Normal is 6-7 mm or less in diameter, or 10 mm or less post-cholecystectomy. Pancreas: Visualized portions of the pancreas are sonographically normal. Spleen: Spleen is normal in size and homogeneous in echotexture. Kidneys: The right kidney is normal in size and echotexture. Right kidney measures 16.3 cm long; left kidney could not be seen. No solid masses. Aorta: Visualized aorta is normal in caliber at less than 3 cm. Iliacs: Proximal common iliac arteries are normal in caliber at less than 2.5 cm. IVC: Intrahepatic inferior vena cava is patent. Miscellaneous: There is mild for quadrant abdominal free fluid. IMPRESSION: 4 quadrant mild ascites noted, growing mass lesions throughout the liver parenchyma. Nonvisualization of the left kidney due to overlying bowel gas and inability of the patient to fully cooperate with positioning and breath holding. Dictated by: Donnie Harrington M.D. 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 Hospital Day 14 Acute Hypoxemic respiratory failure, POA. Improving - Likely is multifactorial with the pneumonia, pulmonary embolism, and mucous plugging. S/p bronchoscopy x2. - Patient extubated 04/16, will saturate well following active cough, but is somnolent and will desat when not actively reminded to cough - Will continue with Precedex to control anxiety Sepsis due to left lower lobe MSSA pneumonia, Improved. - Appears to be methicillin-sensitive Staphylococcus aureus, confirmed by bronchoscopy and lavage on 04/06. The bronch wash from the also grows Staph aureus, pending susceptibilities. - WBC consistently elevated - Appreciate Dr. Goldberg's input. Per ID, patient is clearly colonized in his airway with methicillin sensitive Staphylococcus aureus and there may be some degree of MSSA tracheal bronchitis, but not MSSA pneumonia at this time - Per Dr. Goldberg's recommendations, will continue with empirical antibiotic with Ertapenem, which has good activity against MSSA and provides some broader spectrum coverage for aspiration type pneumonia. Day 7 on Ertapenem. - No other apparent source of infection. The first ascitic fluid analysis showed 343 white cells in the peritoneal fluid, 50% were polys, so this does not meet the standard criteria for bacterial peritonitis. Culture shows no growth so far. - UA on 04/11/17 was negative for infection. Acute bilateral massive pulmonary embolism with obstructive shock, POA, active. - RV pressure overload on echo and no radiographic resolution of his extensive bilateral PE's despite EKOS and systemic anticoagulation with heparin and now argatroban. - Possible this is not all thrombosis but might have some degree of tumor emboli given extent of hepatic involvement. - Systemic thrombolysis not an option given his history of Gastric tumor and recent GI bleeds requiring transfusion. Surgical thrombectomy is also not a consideration given his grim primary diagnosis. - Continue with Argatroban drip and monitor PTT level. Abdominal ascites, POA, acute. Active - Likely a reflection of his elevated RV pressure and hypoalbuminemia along with his tumor involvement. - Large volume paracentesis x3 - Albumin replacement given today due large volume paracentesis. Continue to monitor BP. - Studies of the ascitic fluid from the first paracentesis on 04/10/17 showed that the SAAG is 0.8, consistent with an exudative type ascites. Hyperbilirubinemia, POA, acute. Active - Bilirubin and Alkaline phos are elevated but stable; likely secondary to hepatic metastases. - Abdominal U/S and abdominal/pelvis CT showed growing mass lesions throughout the liver parenchyma. Metastatic liver cancer due to poorly differentiated adenocarcinoma. - CT abd/pelvis on 04/11/17 revealed numerous variably sized hepatic metastases, most confluent in the left hepatic lobe. - Per discussion with family we have elected to proceed with Chemotherapy with FOLFOX per Heme/Onc - Associated risks of beginning CHEMO include: 1) bleeding into liver or gut due to tumor necrosis while anticoagulated, 2) severe sepsis in the face of underlying partially treated bacterial infection, 3) tumor lysis syndrome, 4) Perforated bowel/stomach - HER 2 negative - Actively monitoring K/Phos/Uric acid to track for potential tumor lysis syndrome - Multidisciplinary meeting with Oncology and Palliative Care to define goals of care and code status. Other medical issues will be managed by the primary care team: #. Constipation. #. Malnutrition. #. Anasarca, new and active. #. Acute iron deficiency anemia. #. Bilateral popliteal DVT, POA and active. GI Prophylaxis: Proton Pump Inhibitor VTE Prophylaxis: Other (Argatroban ggt) Resuscitation Status: DNR/DNI:Do Not Resuscitate/Intubate (max support but DNR) Dony Vega MD Apr 16, 2017 12:27
--- NOTE | 2017-04-16 13:37 | PCM.PHAPRO ---
Progress TPN TPN#7 I. Fluids Functionally euvolemic, HD stable, 3rd spacing of fluids continues. II. Chem Lytes stable, out of risk window for tumor lysis. Anion gap met.ac. ? asst with hepatic dysfxn III. Glucose Hovering in 190-210 range after initiation of palliative dexamethasone. p/ Add conservative (6 units) to TPN IV. Macros, Misc Gut remains dysfunctional. PARENTERAL NUTRITION ORDERS 7 16-Apr-17 Standard Hang Time: 2100 Substrates Total kcal: 1600 AMINO ACIDS 120 g DEXTROSE 300 g Total Volume (mL): 1600 LIPIDS 10 g Sterile Water for Injection mL To Infuse Over (hrs): 24 Total Volume 1600 mL At at a rate of (mL/hr): 67 Additives Sodium Chloride 80 mEq "typical" daily requirements Sodium Acetate 60 mEq Sodium 50-120mEq Potassium Chloride 0 mEq Potassium 60-120mEq Potassium Phosphate 0 mEq Phosphate 20-40mEq Calcium Gluconate 9.3 mEq Magnesium 8-32mEq Magnesium Sulfate 12 mEq Calcium 9-22mEq Acetate* 80-120mEq Chloride* 80-120mEq Regular Insulin units *Depending on acid-base status Famotidine 6 mg Multivitamins 1 std dose Insulin Regimen Trace Elements 1 std dose none Thiamine mg Regular Low Intensity Subcut Folic Acid mg Regular Medium Intensity Subcut Ascorbic Acid mg Regular High Intensity Subcut Regular Insulin Infusion Other: Special Instructions: To be infused via central line only. For delay or inturruption of TPN contact the pharmacist for alternative replacement solution. Joshua Floyd Pharm D Apr 16, 2017 13:36
--- NOTE | 2017-04-16 14:22 | PCM.PNMED ---
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 Has had trial of EKOS 04/03 but repeat CTPA 04/05showed no resolution of his bilat PE's. Had repeat CTPA and CT of Abd/Pelvis 04/11 which was personally reviewed showed NO resolution of extensive thrombus in both main Pulmonary arteries and nearly all branches, especially those in the RLL and RML. In addition there appears to be progressive disease in his liver with near total replacement of the left lobe with masses. There was increased ascites and evidence for peritioneal carcinomatosis. On 04/11, I spoke at length with Curtis's mother, sister, and father about the results of the CT's and the events of the last 24 hours. We discussed possible options for going forward and I essentially presented 3 different paths. First, I offered that we could continue fully aggressive support, as we are currently, with the expectation that he will eventually of his rapidly growing tumor, possibly within days or a couple weeks. The next option centers on administration of chemotherapy directed at his disseminated tumor along with a jermaine description of the multiple catastrophic complications that could occur as a result and, for which, we would have no effective treatment. These include gastric rupture, hepatic failure, severe GI hemorrhage, tumor lysis, renal failure, ARDS, sepsis, etc. Finally, we discussed withdrawal of Curtis's ventilator and shifting focus to comfort care with the expectation that he would within hours to a few days. I've spoken with Curtis's oncologist, Dr. Suazo, who offered to meet with me and the family later today to give them a full understanding of the choices and likely outcomes. [facility] agreed to take part in the discussion as well. I also offered to seek transfer of Curtis to a tertiary center such as if the family wishes to explore that however I told them that I doubted that could offer any additional options that might alter the final outcome. On 04/12, we had another family meeting to discuss prognosis and formulate a plan. Dr. Suazo, Dr. Calvo, Dr. Bourgeois and I met with the family along with nursing staff. We again presented the above 3 options and answered all questions. In addition, we asked the family to consider whether it was appropriate for Curtis to continue on Full Code status. After several hours deliberation, the family reported to me, Dr. Calvo, Dr. Bourgeois and staff that they had decided that 1) they would like for Curtis to begin chemo and 2) his code status should change to DNAR. We repeated the large volume therapeutic paracentesis and removed 6 L thin bile stained ascitic fluid without complications. He completed the first cycle of FOLFOX 04/15 Interval History No critical events over night. Has maintained good UOP. SpO2 is 95% on FiO2 0.45. Metabolics improved. More alert. Has tolerated SBT and is now extubated to high flow NC with SpO2 95% on 0.50 Speaks in short sentences. Wants to drink water but unable to use a straw effectively. Tolerating ice chips. Family has decided that Curtis will NOT be reintubated in the event of recurrent respiratory failure Exam Vital Signs Vital Sign - Last Date Time Temp Pulse Resp B/P Pulse Ox O2 Delivery O2 Flow Rate FiO2 04/16/17 12:00 100 13 95 Nasal Cannula 50 60 04/16/17 12:00 36.7 128/64 Intake and Output 04/15/17 04/15/17 04/16/17 Cumulative From/Thru 15:00 23:00 07:00 04/03/17 07:34 - 04/16/17 06:14 Intake Total 3909 ml 2584 ml 55688 ml Output Total 550 ml 6700 ml 1975 ml 03962 ml Balance -550 ml -2791 ml 609 ml 11181 ml Intake Oral 0 ml IV Total 3422 ml 1911 ml 15226 ml Tube Feeding 1407 ml TPN/PPN 487 ml 673 ml 9579 ml Packed Cells 351 ml Tube Irrigant 480 ml Output Urine Total 550 ml 350 ml 1500 ml 45295 ml Gastric Drainage Total 50 ml 50 ml 1335 ml Drainage Total 6000 ml 80295 ml Other 300 ml 425 ml 1565 ml # Bowel Movements 0 0 0 Exam Pale, gaunt cachectic young man in mod resp distress with some accessory muscle use and speaking in short sentences. Lungs Good air movement anteriorly, rales at bases, NO wheezes CV RRR, II/ holosytolic m heard along entire Lt sternal border and at RUSB without radiation to carotids or apex. Abd firm, no BTs, hard mass in epigastrium Ext Warm, legs with 2+ edema to knees Neuro Moves all 4, very weak. IVs and Medications Medications Reviewed: Medications were reviewed in detail Lab and Diagnostics Personally reviewed in detail Result Diagram: 04/16/17 0245 04/16/17 0830 Microbiology Bronchial washing grew MSSA 04/09 X-Rays, CTs and MRIs CT ANGIO CHEST PULMONARY EMBOLISM 1. Slight decrease in severe pulmonary embolic disease with resolution of the previously seen saddle embolus spanning the main pulmonary artery bifurcation. However, significant embolic burden remains bilaterally. 2. Improved aeration of the left lower lobe. Decreased right lower lobe pneumonia. 3. Moderate ascites and severe hepatic metastatic disease. 4. Healing left rib fractures. 5. Gastroesophageal reflux. Dictated by: Landon Noel M.D. on 04/11/2017 at 10:12 CT ABDOMEN AND PELVIS WITH CONTRAST 1. Interval increased amount of large abdominal and pelvic ascites, presumably from peritoneal carcinomatosis. 2. Numerous variably sized hepatic metastases again noted, most confluent in the left hepatic lobe. 3. 6.4 x 5.5 x 3.5 cm left pelvic cystic lesion appears to arise from the left seminal vesicle. 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 4. Small bibasilar mobile pleural effusions, with associated compressive atelectasis. Dictated by: Moisés Brasher M.D. on 04/11/2017 at 10:32 Chest x-ray Stable pulmonary venous engorgement and support devices. Dictated by: New Powers M.D. on 04/03/2017 at 11:01 CT angiogram 1. Multiple, bilateral large pulmonary emboli. 2. Flattening of the cardiac interventricular septum suggesting right heart strain. 3. Hepatic metastatic disease. 4. Findings telephoned to Dr. Nathan Paz on 04/03/17 at 0817 hrs. Dictated by: Louisa Jones MD, PhD on 04/03/2017 at 8:13 Chest x-ray 1. Endotracheal tube and nasogastric tube positioned as described. 2. Mild cardiomegaly and moderate vascular congestion. Dictated by: Tristin Mckenzie M.D. on 04/03/2017 at 9:55 Chest x-ray 1. Endotracheal tube is positioned at the thoracic inlet. 2. Mild cardiomegaly and vascular congestion is similar to the prior study. Dictated by: Tristin Mckenzie M.D. on 04/03/2017 at 10:03 US ABDOMEN IMPRESSION: 4 quadrant mild ascites noted, growing mass lesions throughout the liver parenchyma. Nonvisualization of the left kidney due to overlying bowel gas and inability of the patient to fully cooperate with positioning and breath holding. Dictated by: Donnie Harrington M.D. on 04/10/2017 CT ANGIO CHEST PULMONARY EMBOLISM IMPRESSION: 1. Slight decrease in severe pulmonary embolic disease with resolution of the previously seen saddle embolus spanning the main pulmonary artery bifurcation. However, significant embolic burden remains bilaterally. 2. Improved aeration of the left lower lobe. Decreased right lower lobe pneumonia. 3. Moderate ascites and severe hepatic metastatic disease. 4. Healing left rib fractures. 5. Gastroesophageal reflux. Dictated by: Landon Noel M.D. on 04/11/2017 CT ABDOMEN AND PELVIS WITH CONTRAST IMPRESSION: 1. Interval increased amount of large abdominal and pelvic ascites, presumably from peritoneal carcinomatosis. 2. Numerous variably sized hepatic metastases again noted, most confluent in the left hepatic lobe. 3. 6.4 x 5.5 x 3.5 cm left pelvic cystic lesion appears to arise from the left seminal vesicle. 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 4. Small bibasilar mobile pleural effusions, with associated compressive atelectasis. Dictated by: Moisés Brasher M.D. on 04/11/2017 Cardiac Echo Impressions Interpretation Summary Severely dilated right ventricle with moderate to severely reduced systolic function. Thrombus is visualized in the right ventricle. There is a catheter seen in the right atrium. Comparison is made with the echocardiogram of 04/03/2017, right ventricle size has decreased slightly. Electronically signed by: Karishma Morrow on Reading Physician:04/05/2017 02:03 PM . Additional Diagnostics PROCEDURE: US ABDOMEN FINDINGS: Liver: Liver is enlarged in size and heterogeneous in echotexture with multiple hepatic mass lesions previously identified again seen, having enlarged in size from the comparison ultrasound 03/07/17 and the largest measures up to 5.5 x 5.0 x 4.3 cm. Gallbladder: The gallbladder watts just above the upper limits of normal at 3.1 mm, and appears to contain sludge. A small amount of adjacent free fluid can be seen. Biliary ducts: Intrahepatic bile ducts are non-dilated. Extrahepatic bile duct caliber measures 3.5 mm. Normal is 6-7 mm or less in diameter, or 10 mm or less post-cholecystectomy. Pancreas: Visualized portions of the pancreas are sonographically normal. Spleen: Spleen is normal in size and homogeneous in echotexture. Kidneys: The right kidney is normal in size and echotexture. Right kidney measures 16.3 cm long; left kidney could not be seen. No solid masses. Aorta: Visualized aorta is normal in caliber at less than 3 cm. Iliacs: Proximal common iliac arteries are normal in caliber at less than 2.5 cm. IVC: Intrahepatic inferior vena cava is patent. Miscellaneous: There is mild for quadrant abdominal free fluid. IMPRESSION: 4 quadrant mild ascites noted, growing mass lesions throughout the liver parenchyma. Nonvisualization of the left kidney due to overlying bowel gas and inability of the patient to fully cooperate with positioning and breath holding. Dictated by: Donnie Harrington M.D. 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 He is receiving Ertapenem for a MSSA pneumonia and as empiric coverage for intrabdominal sepsis. He began FOLFOX 04/13 and completed 1st cycle 04/15. IMP Resp failure Multifactorial with massive PE, LLL PNA and marked abdominal distension all contributing. There has been NO radiographic resolution of his extensive bilateral PE's despite EKOS and systemic anticoagulation with heparin and argatroban now. His tense ascites has been drained x2 but is reaccumulating as anticipated. His FiO2 has remained stable over night. He is now extubated but very weak and requiring high flow O2 to maintain SpO2. Day #7 empiric ertapenem for LLL PNA. Following the removal of 6 L ascitic fluid 04/12 and again on 04/15, his O2 requirements decreased and he appears more comfortable. PE Bilat Massive PE. Had RV pressure overload on echo but no radiographic improvement after EKOS and anticoagulation on followup CTs. Systolic murmur likely represents TR from elevated PA pressures. Possible that all material in pulmonary circulation is not thrombosis but instead some degree of tumor emboli given extent of hepatic involvement. He is undoubtably thrombophilic due to his advanced gastric cancer. Systemic thrombolysis, even at reduced dose not a safe option given his history of Gastric tumor and recent GI bleeds requiring transfusion. An attempt at catheter directed therapy with EKOS did not succeed and surgical thrombectomy is not a consideration given his primary diagnosis and exceeding grim prognosis based on that. Gastric CA HER 2 negative and he has completed cycle of FOLFOX with dose reduction. His potassium, uric acid and phosphorus are stable or improved. TPN has been adjusted. No utility for gut PO4 binders as he has no gut function. His family decided to begin chemotherapy and have been fully and repeatedly informed of the significant risks for catastrophic complications for which there may be no effective treatment. In the event of a cardiac arrest, he is now DNAR / DNI. Ascites A reflection of his elevated RV pressure and hypoalbuminemia along with direct tumor involvement. Improved after 6 L removed 04/12 and . Given total 50 gms albumin following the last procedure. Hyperglycemia TPN, Decadron and stress all contribute. Adjusted SQ sliding scale, Can add insulin to TPN if daily requirement excessive. 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 For now renal fxn and UOP are adequate and there is no indication for renal replacement. Bang Mathis Documented family history and almost certainly the cause of his advanced gastric adenocarcinoma REC FOLFOX per Oncology, Filgrastim per Oncology once chemo completed if WBC dips. serial metabolic labs. Rasburicase if urate > 7.5 Abx per ID Repeat therapeutic large volume paracentesis repeated as needed DC propofol. taper precedex and fentanyl. Continue Zydis for sedation. Decadron for adjunctive pain treatment TPN Argatroban GI prophylaxis DNAR Pain Evaluation: Adequate Pain Control GI Prophylaxis: Proton Pump Inhibitor VTE Prophylaxis: Other (Argatroban ggt) Resuscitation Status: DNR/DNI:Do Not Resuscitate/Intubate (max support but DNR) Time spent 1 hour 15 minutes critical care exclusive of shared time and procedures Dony Vega MD Apr 16, 2017 14:22 VTE Prophylaxis: Other (Argatroban ggt) Resuscitation Status: DNR/DNI:Do Not Resuscitate/Intubate (max support but DNR) Dony Vega MD Apr 16, 2017 14:22
--- NOTE | 2017-04-16 15:49 | PCM.PNMED ---
Subjective Date of Service Apr 16, 2017 Subjective Patient was successfully extubated today, responds appropriately to questions. Patient also had a large bowel movement today, the first in 2 weeks. Vital signs remained stable. Exam Vital Signs Vital Sign - Last Date Time Temp Pulse Resp B/P Pulse Ox O2 Delivery O2 Flow Rate FiO2 04/16/17 15:24 99 15 99 Nasal Cannula 30 30 04/16/17 12:00 36.7 128/64 Intake and Output 04/15/17 04/15/17 04/16/17 Cumulative From/Thru 14:59 22:59 06:59 04/03/17 07:34 - 04/16/17 06:14 Intake Total 3909 ml 2584 ml 30344 ml Output Total 550 ml 6700 ml 1975 ml 19253 ml Balance -550 ml -2791 ml 609 ml 13245 ml Intake Oral 0 ml IV Total 3422 ml 1911 ml 05749 ml Tube Feeding 1407 ml TPN/PPN 487 ml 673 ml 9579 ml Packed Cells 351 ml Tube Irrigant 480 ml Output Urine Total 550 ml 350 ml 1500 ml 60829 ml Gastric Drainage Total 50 ml 50 ml 1335 ml Drainage Total 6000 ml 72023 ml Other 300 ml 425 ml 1565 ml # Bowel Movements 0 0 0 Exam General: Awake and alert laying in the hospital bed, appropriately interactive HEENT: Normocephalic, atraumatic. Pupils equal, round, and reactive to light and accommodation. Scleral icterus, moist mucosa. Neck: No jugular venous distension. Cardiovascular: Regular rate and rhythm with 2/6 holosystolic murmur heard best at left sternal border. Pulmonary: Clear to auscultation bilaterally with no crackles, wheezes, or rhonchi. Normal respiratory effort with some accessory muscle usage. Speaking in short sentences. Abdomen: Soft, nontender, nondistended. Extremities: Lower extremity bilateral edema, good dorsalis pedis pulses appreciated. Skin: Normal temperature, turgor, and texture Neurological: Cranial nerves grossly intact. IVs and Medications Medications Reviewed: Medications were reviewed in detail Lab and Diagnostics Result Diagram: 04/16/17 0245 04/16/17 1440 Microbiology Bronchial washing grew MSSA 04/09 X-Rays, CTs and MRIs CT ANGIO CHEST PULMONARY EMBOLISM 1. Slight decrease in severe pulmonary embolic disease with resolution of the previously seen saddle embolus spanning the main pulmonary artery bifurcation. However, significant embolic burden remains bilaterally. 2. Improved aeration of the left lower lobe. Decreased right lower lobe pneumonia. 3. Moderate ascites and severe hepatic metastatic disease. 4. Healing left rib fractures. 5. Gastroesophageal reflux. Dictated by: Landon Noel M.D. on 04/11/2017 at 10:12 CT ABDOMEN AND PELVIS WITH CONTRAST 1. Interval increased amount of large abdominal and pelvic ascites, presumably from peritoneal carcinomatosis. 2. Numerous variably sized hepatic metastases again noted, most confluent in the left hepatic lobe. 3. 6.4 x 5.5 x 3.5 cm left pelvic cystic lesion appears to arise from the left seminal vesicle. 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 4. Small bibasilar mobile pleural effusions, with associated compressive atelectasis. Dictated by: Moisés Brasher M.D. on 04/11/2017 at 10:32 Chest x-ray Stable pulmonary venous engorgement and support devices. Dictated by: New Powers M.D. on 04/03/2017 at 11:01 CT angiogram 1. Multiple, bilateral large pulmonary emboli. 2. Flattening of the cardiac interventricular septum suggesting right heart strain. 3. Hepatic metastatic disease. 4. Findings telephoned to Dr. Nathan Paz on 04/03/17 at 0817 hrs. Dictated by: Louisa Jones MD, PhD on 04/03/2017 at 8:13 Chest x-ray 1. Endotracheal tube and nasogastric tube positioned as described. 2. Mild cardiomegaly and moderate vascular congestion. Dictated by: Tristin Mckenzie M.D. on 04/03/2017 at 9:55 Chest x-ray 1. Endotracheal tube is positioned at the thoracic inlet. 2. Mild cardiomegaly and vascular congestion is similar to the prior study. Dictated by: Tristin Mckenzie M.D. on 04/03/2017 at 10:03 US ABDOMEN IMPRESSION: 4 quadrant mild ascites noted, growing mass lesions throughout the liver parenchyma. Nonvisualization of the left kidney due to overlying bowel gas and inability of the patient to fully cooperate with positioning and breath holding. Dictated by: Donnie Harrington M.D. on 04/10/2017 CT ANGIO CHEST PULMONARY EMBOLISM IMPRESSION: 1. Slight decrease in severe pulmonary embolic disease with resolution of the previously seen saddle embolus spanning the main pulmonary artery bifurcation. However, significant embolic burden remains bilaterally. 2. Improved aeration of the left lower lobe. Decreased right lower lobe pneumonia. 3. Moderate ascites and severe hepatic metastatic disease. 4. Healing left rib fractures. 5. Gastroesophageal reflux. Dictated by: Landon Noel M.D. on 04/11/2017 CT ABDOMEN AND PELVIS WITH CONTRAST IMPRESSION: 1. Interval increased amount of large abdominal and pelvic ascites, presumably from peritoneal carcinomatosis. 2. Numerous variably sized hepatic metastases again noted, most confluent in the left hepatic lobe. 3. 6.4 x 5.5 x 3.5 cm left pelvic cystic lesion appears to arise from the left seminal vesicle. 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 4. Small bibasilar mobile pleural effusions, with associated compressive atelectasis. Dictated by: Moisés Brasher M.D. on 04/11/2017 X-RAY CHEST ONE VIEW, PORTABLE IMPRESSION: 1. Support tubes appear in place. PICC line appears to be in the atrium 2. Mild right lower lobe interstitial infiltrate. Persistent left lower lobe consolidation. Small left pleural effusion. Findings compatible with pneumonia/ aspiration. Dictated by: David Greer M.D. on 04/13/2017 X-RAY CHEST ONE VIEW, PORTABLE IMPRESSION: Stable chest. Dictated by: Paul Nieves M.D. on 04/14/2017 X-RAY CHEST ONE VIEW, PORTABLE IMPRESSION: 1. Asymmetric pulmonary edema with superimposed bibasilar pneumonia. Dictated by: Paul Nieves M.D. on 04/14/2017 X-RAY CHEST ONE VIEW, PORTABLE IMPRESSION: 1. Stable right basilar infiltrates. Improving left lower lobe volume loss. 2. Stable support devices. Dictated by: New Powers M.D. on 04/15/2017 X-RAY CHEST ONE VIEW, PORTABLE IMPRESSION: Bilateral pulmonary airspace opacities similar to prior examination suggesting bilateral aspiration versus pneumonia. Dictated by: Jak JOHNSON Interpreted: Paul Nieves MD on 04/16/2017 Cardiac Echo Impressions Interpretation Summary Severely dilated right ventricle with moderate to severely reduced systolic function. Thrombus is visualized in the right ventricle. There is a catheter seen in the right atrium. Comparison is made with the echocardiogram of 04/03/2017, right ventricle size has decreased slightly. Electronically signed by: Karishma Morrow on Reading Physician:04/05/2017 02:03 PM . Additional Diagnostics PROCEDURE: US ABDOMEN FINDINGS: Liver: Liver is enlarged in size and heterogeneous in echotexture with multiple hepatic mass lesions previously identified again seen, having enlarged in size from the comparison ultrasound 03/07/17 and the largest measures up to 5.5 x 5.0 x 4.3 cm. Gallbladder: The gallbladder watts just above the upper limits of normal at 3.1 mm, and appears to contain sludge. A small amount of adjacent free fluid can be seen. Biliary ducts: Intrahepatic bile ducts are non-dilated. Extrahepatic bile duct caliber measures 3.5 mm. Normal is 6-7 mm or less in diameter, or 10 mm or less post-cholecystectomy. Pancreas: Visualized portions of the pancreas are sonographically normal. Spleen: Spleen is normal in size and homogeneous in echotexture. Kidneys: The right kidney is normal in size and echotexture. Right kidney measures 16.3 cm long; left kidney could not be seen. No solid masses. Aorta: Visualized aorta is normal in caliber at less than 3 cm. Iliacs: Proximal common iliac arteries are normal in caliber at less than 2.5 cm. IVC: Intrahepatic inferior vena cava is patent. Miscellaneous: There is mild for quadrant abdominal free fluid. IMPRESSION: 4 quadrant mild ascites noted, growing mass lesions throughout the liver parenchyma. Nonvisualization of the left kidney due to overlying bowel gas and inability of the patient to fully cooperate with positioning and breath holding. Dictated by: Donnie Harrington M.D. 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 Hospital Day 15. #. Massive bilateral pulmonary emboli with obstructive shock, acute. Slowly improving. -There has been no radiographic improvement with bilateral PEs which have been refractory to EKOS and systemic anticoagulation, possibly suspected PEs are in fact tumor emboli. -Confirmed home dose of Lovenox 80 mg daily, most likely missing intermittent dosing prior to admission -Repeat CT shows unchanged clot burden despite treatment with tPA and EKOS 3, possible this is secondary to tumor emboli -Probable lysis not an option secondary to primary diagnosis of gastric tumor and prognosis -Continue with Argatroban drip, monitor PTT level -Patient extubated on 04/16/2017 #. Acute hypoxic respiratory failure, POA ongoing. -ICU/pulmonology team following greatly appreciated recommendations and treatment direction. - Multiple possibilities including pneumonia, PE, tumor emboli, mucous plugging - Bronchoscopy 2 with removal of mucous plug - Extubated 04/16/2017, maintains O2 saturation. - Continue with Precedex for anxiety - Sedation vacation successful, though became agitated after being intubated so sedation was increased again #. Gastric adenocarcinoma, present on admission. Ongoing -ICU team continues management for patient and care plan. Their time and expertise is greatly appreciated -HER-2 negative -Chemotherapy initiated FOLFOX per oncology -Suspicion for tumor lysis syndrome with rising phosphate, uric acid and decrease in bicarbonate. -We will continue to monitor - overlaying grim prognosis #. Pneumonia, not present on admission, improving. -Bronchial washing showed staph aureus, resistant to erythromycin. The patient also has had evidence of left lower lobe collapse likely from secretions. -Discontinued Zosyn, switched to nafcillin - also discontinued -Pro calcitonin continues to trend up though in the setting of liver metastasis unreliable, we will stop following this value -WBC continues to trend down, remains afebrile -ID following, recommendations appreciated -Ertapenem started 04/10/2017 -Bronchoscopy as above -Continue to monitor #. Sepsis secondary to HCAP. Acute and improving. -Most likely MSSA pneumonia, confirmed by bronchoscopy and lavage -CT angio showed bilateral pleural effusions, worsening bibasilar pneumonia pattern, greater on the left than the right. -WBC trending down, afebrile -No longer following Pro calcitonin in the setting of hepatic metastases -Infectious disease following -Antibiotics as above -No vasopressor requirements #. Anasarca, new and active. The patient has significant volume overload from resuscitation. We will continue to monitor and diuresis as able. -Large volume paracentesis 3 -Albumin replacement -Ascitic fluid shows exudate -Urinary output remains adequate -Continue to monitor #. Acute iron deficiency anemia. Stable. - Secondary to hemodilution from aggressive fluid resuscitation. Possibly secondary to GI bleed from malignant gastric ulcers, but no sign of acute bleed at this time. Hb has been stable, so will switch from PPI drip to BID. - PRBCs on hold. Transfuse for HB <8. - Check H&H daily - Protonix 40 mg IV BID - Monitor for signs of acute bleeding #. Bilateral popliteal DVT, POA and active. - Pt diagnosed with bilateral large DVTs 3 weeks ago, placed on Lovenox at home with possible missed doses - Currently therapeutic on Argatroban #. Hyperbilirubinemia, new and active. - Bilirubin and Alkaline phos trending up; scleral icterus on exam; likely secondary to hepatic metastases. - Abdominal and pelvis CT shows growing mass lesions throughout liver parenchyma #. Constipation. Present on admission Ongoing -Refractory to all multiple enemas including enema with with FMS -Refractory to suppository -Continue aggressive bowel regimen #. Malnutrition. Ongoing -Nutrition following, TPN started with concentrated formula Dangerous meds include fentanyl drip and propofol. Disposition: Extubated today, remains ICU status will continue treatment plan as above. Patient is on PPO BID for GI prophylaxis. He is on Argatroban ggt for PE, which is therapeutic. GI Prophylaxis: Proton Pump Inhibitor VTE Prophylaxis: Other (Argatroban ggt) Resuscitation Status: DNR/DNI:Do Not Resuscitate/Intubate (max support but DNR) GI Prophylaxis: Proton Pump Inhibitor VTE Prophylaxis: Other (Argatroban ggt) Resuscitation Status: DNR/DNI:Do Not Resuscitate/Intubate (max support but DNR) GI Prophylaxis: Proton Pump Inhibitor VTE Prophylaxis: Other (Argatroban ggt) Resuscitation Status: DNR/DNI:Do Not Resuscitate/Intubate (max support but DNR) Time spent 30 minutes Attending Statement Patient has been seen and examined by myself with medical physiologist and agree with above history, physical, assessment and plan. BRICE BROWN DO Apr 16, 2017 15:49 Anna Marino MD Apr 16, 2017 18:17
[2017-04-16] MEDS ORDERED: Ketorolac 15 mg/mL Inj IVPUSH ONE (16:10)
[2017-04-16] MEDS: Ondansetron 2 mg/mL 2 mL Inj IVPUSH PRN (16:47)
--- NOTE | 2017-04-16 17:29 | NUR ---
Extubated from vent support at 1110 this morning following several hours of pressure support and sedation vacation. Maintaining sats >92% and RR 20s on nasal high flow 02. Confused, impulsive. Speech weak and mumbled. Indicates that he is getting adequate pain medication with continued Fentanyl infusion. Arterial line discontinued, sight is bruised, dressing CDI. Sinus rhythm, intermittent tachycardia on tele, no ectopy noted. Brisk UOP 1700ml/12 hours via bowles cath. Large soft-formed BM today using bedpan. Abd distended and round, "growing rapidly" per family's observation. Per MD, taking ice and sips of water post-extubation until he developed nausea and emesis. Holding PO despite patient/family requests for more water. Teaching done regarding ileus. Mepilex foam dressing changed to coccyx. Small gluteal cleft "split", skin appearing macerated. Generalized pitting edema present. Moderately weak, congested cough productive of thick, yellow sputum. Initially refusing oral care, is allowing frequent swabs and care. Multiple supportive family members at bedside, involved in and assisting with ADLs; has not slept today despite MD coaxing family to take breaks and decrease stimulation. Right groin site continues to ooze moderate amounts of serous fluid; unable to keep ostomy/drainage bag in place. Family updated by MDs, including oncologist throughout the day.
[2017-04-16] MEDS: Total Parenteral Nutrition 1 BAG IV SCH (21:07)
[2017-04-16] MEDS: TPN Per Pharmacist XX SCH (21:07)
[2017-04-17] VITALS (10 sets, daily range): BP systolic 110–121; BP diastolic 48–72; PULSE 71–123; RESP 14–27; O2SAT 94–96
[2017-04-17] MEDS: Dexmedetomidine 400 mCg/100 mL 400 MCG in IV Premix 1 EACH IV PRN ×2 (02:12→05:21)
--- NOTE | 2017-04-17 02:29 | NUR ---
respiratory, restless pt alert, naomie, pleasant but impulsive and intermittently restless, pt knows he is in the hospital but does not completely comprehend his whole stay, pt not oriented to year, pt recognizes his family, pt and family expressing wanting pt to get some sleep, fentanyl gtt continued at 150mcg/hr, intermittent boluses-pt denied pain but then wanting ice packs for his shoulders, pt denied pain after using ice pack for approximately an hour, precedex gtt increased from 0.7mcg/kg/hr to 1.4mcg/kg/hr(order on chart), pt little more drowsy but not sleeping, md updated on pts meds and pt and family wanting pt to sleep, no new meds added to avoid over sedation since pt is dnr/dni, pt able to use call light, argatroban gtt infusing per orders-overseen by pharmacy, no bleeding noted, tpn per orders, no bt's, abd round/firm, uap=10, bm times one, flatus present, occasional ice chip given, frequent oral swabs done, lips moistened frequently also, family teaching done about pt being able to have occasional ice chip per md order not continual ice chips-- due to pt having no bt's and pt getting nauseated on day shift with ice chips, spoke about concerns of aspiration pneumonia if pt was to vomit, family expressed understanding and was more compliant with ice chips, ls- decreased t/o, sat on 30% fio2 and 30 liters high flow o2=94-97%, hob up, resp rate in teens to low 20's, sob with exertion, see ccu flow sheet, plan: continue resp support and comfort, strengthening, pt's dad spent night at bedside, no complaints, Addendum: 04/17/17 at 0650 by REESE DECKER RN checked with pt and his father to see if they had any questions or needs, no questions/concerns/needs expressed, Addendum: 04/17/17 at 0709 by REESE DECKER RN paged with sodium and chloride results, no new orders,
[2017-04-17] MEDS: Insulin Human REGular 300 Unit/3 mL Inj SUBQ SCH ×4 (03:23→21:09)
[2017-04-17 03:35] LABS: BASOPHILS % (AUTO) 0 % (0-3); EOSINOPHILS % (AUTO) 0 % (0-5); MONOCYTES % (AUTO) 0.1 % (4-12); Mean Corpuscular Hemoglobin 22.5 pg (27.0-35.0); Mean Corpuscular Volume 70.7 fL (81-100); NEUTROPHILS % (AUTO) 96.2 % (40-74); Platelet Count 631 bil/L (150-400)
[2017-04-17] MEDS: Ondansetron 2 mg/mL 2 mL Inj IVPUSH PRN (04:00)
[2017-04-17 04:45] LABS: Magnesium 2.4 mg/dL (1.6-2.6)
[2017-04-17] MEDS: Pantoprazole 4 mg/mL 10 mL Inj IVPUSH SCH ×2 (07:44→16:13)
[2017-04-17] MEDS: Ertapenem Inj 1,000 MG in 0.9% Sodium Chloride 50 ML IV SCH (07:44)
[2017-04-17] MEDS: [UNRECOGNIZED DRUG - REMARK] XX SCH (07:45)
[2017-04-17] MEDS: OLANZapine Zydis ODT 5 mg Tablet PO SCH ×2 (07:45→20:59)
[2017-04-17] MEDS: fentaNYL 2,500 mCg/250 mL 2,500 MCG in IV Premix 1 EACH IV SCH (07:45)
[2017-04-17] MEDS: Dexamethasone 4 mg/mL Inj IVPUSH SCH ×2 (07:45→20:58)
[2017-04-17] MEDS ORDERED: Potassium Phos (mEq) Inj 40 MEQ in Dextrose 5% 250 ML IV ONE (08:05)
--- NOTE | 2017-04-17 10:01 | PCM.PNMED ---
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 He was treated with EKOS catheter directed thrombolytic therapy x 3 with no change in massive clot burden on repeat CTs. Heparin gtt was ineffective and was switched to Argatroban ggt. CT abdomen/pelvis on 04/11/2017 showed progression of the liver tumors and family decided to start FOLFOX on 04/13/2017 and completed the 1st cycle on 04/15/17. He was successfully extubated yesterday 04/16/17 and is currently on high-flow Oxygen. Hospital Day 15. No acute event overnight. Patient has remained relatively stable with SpO2 in the 95% on 30 high flow. Per nursing report, he complained sleeping difficulty but no new medication was given to avoid over-sedation. One BM overnight, flatus present. Precedex increases to 1.4 mcg/kg/hr and Fentanyl continues at 150mcg/hr. Intra-abdominal pressure has been around 15. This morning, the patient is able to speak in short sentences and follow simple commands. He only oriented to self but is able to hold conversation with intermittent conversational dyspnea. He is tolerating ice chips and wants to have more. He denies any pain complaint. Neither the patient nor family has any concerns at this point. His family is pleased with his gradual progress. Exam Vital Signs Vital Sign - Last Date Time Temp Pulse Resp B/P Pulse Ox O2 Delivery O2 Flow Rate FiO2 04/17/17 04:05 70 14 95 Nasal Cannula 30 30 04/17/17 04:00 36.6 111/63 Intake and Output 04/16/17 04/16/17 04/17/17 Cumulative From/Thru 15:00 23:00 07:00 04/03/17 07:34 - 04/17/17 06:29 Intake Total 2255 ml 1586 ml 99166 ml Output Total 1700 ml 1000 ml 73487 ml Balance 555 ml 586 ml 27430 ml Intake Oral 0 ml IV Total 1455 ml 772 ml 34967 ml Tube Feeding 1407 ml TPN/PPN 800 ml 814 ml 06826 ml Packed Cells 351 ml Tube Irrigant 480 ml Output Urine Total 1700 ml 950 ml 99198 ml Gastric Drainage Total 1335 ml Drainage Total 06831 ml Other 50 ml 1615 ml # Bowel Movements 1 1 2 Exam Gen: pale, cachetic young gentleman, not in acute distress. HEENT: NCAT, mild conjunctival pallor, pink and dry mucosa. Cardio: Regular rate and rhythm with no murmurs rubs or gallops. Resp: clear to auscultation anteriorly with some rales in the bilateral bases. Abdomen: moderately distended and firm to palpation, normoactive bowel sound, no appreciable tenderness to palpation. Extremities: Warm to the touch, moderate pitting edema in the bilateral lower extremities up to mid tibia. Skin: pale, dry and intact. No skin rash noted. Neuro: Oriented to self only and recognizes family members. Sensation grossly intact to light touch. IVs and Medications Medications Reviewed: Medications were reviewed in detail Medications High-risk medications include Precedex and Fentanyl. Lab and Diagnostics Result Diagram: 04/17/1731404/17/17314 Microbiology Bronchial washing grew MSSA 04/09 X-Rays, CTs and MRIs CT ANGIO CHEST PULMONARY EMBOLISM 1. Slight decrease in severe pulmonary embolic disease with resolution of the previously seen saddle embolus spanning the main pulmonary artery bifurcation. However, significant embolic burden remains bilaterally. 2. Improved aeration of the left lower lobe. Decreased right lower lobe pneumonia. 3. Moderate ascites and severe hepatic metastatic disease. 4. Healing left rib fractures. 5. Gastroesophageal reflux. Dictated by: Landon Noel M.D. on 04/11/2017 at 10:12 CT ABDOMEN AND PELVIS WITH CONTRAST 1. Interval increased amount of large abdominal and pelvic ascites, presumably from peritoneal carcinomatosis. 2. Numerous variably sized hepatic metastases again noted, most confluent in the left hepatic lobe. 3. 6.4 x 5.5 x 3.5 cm left pelvic cystic lesion appears to arise from the left seminal vesicle. 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 4. Small bibasilar mobile pleural effusions, with associated compressive atelectasis. Dictated by: Moisés Brasher M.D. on 04/11/2017 at 10:32 Chest x-ray Stable pulmonary venous engorgement and support devices. Dictated by: New Powers M.D. on 04/03/2017 at 11:01 CT angiogram 1. Multiple, bilateral large pulmonary emboli. 2. Flattening of the cardiac interventricular septum suggesting right heart strain. 3. Hepatic metastatic disease. 4. Findings telephoned to Dr. Nathan Paz on 04/03/17 at 0817 hrs. Dictated by: Louisa Jones MD, PhD on 04/03/2017 at 8:13 Chest x-ray 1. Endotracheal tube and nasogastric tube positioned as described. 2. Mild cardiomegaly and moderate vascular congestion. Dictated by: Tristin Mckenzie M.D. on 04/03/2017 at 9:55 Chest x-ray 1. Endotracheal tube is positioned at the thoracic inlet. 2. Mild cardiomegaly and vascular congestion is similar to the prior study. Dictated by: Tristin Mckenzie M.D. on 04/03/2017 at 10:03 US ABDOMEN IMPRESSION: 4 quadrant mild ascites noted, growing mass lesions throughout the liver parenchyma. Nonvisualization of the left kidney due to overlying bowel gas and inability of the patient to fully cooperate with positioning and breath holding. Dictated by: Donnie Harrington M.D. on 04/10/2017 CT ANGIO CHEST PULMONARY EMBOLISM IMPRESSION: 1. Slight decrease in severe pulmonary embolic disease with resolution of the previously seen saddle embolus spanning the main pulmonary artery bifurcation. However, significant embolic burden remains bilaterally. 2. Improved aeration of the left lower lobe. Decreased right lower lobe pneumonia. 3. Moderate ascites and severe hepatic metastatic disease. 4. Healing left rib fractures. 5. Gastroesophageal reflux. Dictated by: Landon Noel M.D. on 04/11/2017 CT ABDOMEN AND PELVIS WITH CONTRAST IMPRESSION: 1. Interval increased amount of large abdominal and pelvic ascites, presumably from peritoneal carcinomatosis. 2. Numerous variably sized hepatic metastases again noted, most confluent in the left hepatic lobe. 3. 6.4 x 5.5 x 3.5 cm left pelvic cystic lesion appears to arise from the left seminal vesicle. 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 4. Small bibasilar mobile pleural effusions, with associated compressive atelectasis. Dictated by: Moisés Brasher M.D. on 04/11/2017 X-RAY CHEST ONE VIEW, PORTABLE IMPRESSION: 1. Support tubes appear in place. PICC line appears to be in the atrium 2. Mild right lower lobe interstitial infiltrate. Persistent left lower lobe consolidation. Small left pleural effusion. Findings compatible with pneumonia/ aspiration. Dictated by: David Greer M.D. on 04/13/2017 X-RAY CHEST ONE VIEW, PORTABLE IMPRESSION: Stable chest. Dictated by: Paul Nieves M.D. on 04/14/2017 X-RAY CHEST ONE VIEW, PORTABLE IMPRESSION: 1. Asymmetric pulmonary edema with superimposed bibasilar pneumonia. Dictated by: Paul Nieves M.D. on 04/14/2017 X-RAY CHEST ONE VIEW, PORTABLE IMPRESSION: 1. Stable right basilar infiltrates. Improving left lower lobe volume loss. 2. Stable support devices. Dictated by: New Powers M.D. on 04/15/2017 X-RAY CHEST ONE VIEW, PORTABLE IMPRESSION: Bilateral pulmonary airspace opacities similar to prior examination suggesting bilateral aspiration versus pneumonia. Dictated by: Jak Ortiz RRA Interpreted: Paul Nieves MD on 04/16/2017 Cardiac Echo Impressions Interpretation Summary Severely dilated right ventricle with moderate to severely reduced systolic function. Thrombus is visualized in the right ventricle. There is a catheter seen in the right atrium. Comparison is made with the echocardiogram of 04/03/2017, right ventricle size has decreased slightly. Electronically signed by: Karishma Morrow on Reading Physician:04/05/2017 02:03 PM . Additional Diagnostics PROCEDURE: US ABDOMEN FINDINGS: Liver: Liver is enlarged in size and heterogeneous in echotexture with multiple hepatic mass lesions previously identified again seen, having enlarged in size from the comparison ultrasound 03/07/17 and the largest measures up to 5.5 x 5.0 x 4.3 cm. Gallbladder: The gallbladder watts just above the upper limits of normal at 3.1 mm, and appears to contain sludge. A small amount of adjacent free fluid can be seen. Biliary ducts: Intrahepatic bile ducts are non-dilated. Extrahepatic bile duct caliber measures 3.5 mm. Normal is 6-7 mm or less in diameter, or 10 mm or less post-cholecystectomy. Pancreas: Visualized portions of the pancreas are sonographically normal. Spleen: Spleen is normal in size and homogeneous in echotexture. Kidneys: The right kidney is normal in size and echotexture. Right kidney measures 16.3 cm long; left kidney could not be seen. No solid masses. Aorta: Visualized aorta is normal in caliber at less than 3 cm. Iliacs: Proximal common iliac arteries are normal in caliber at less than 2.5 cm. IVC: Intrahepatic inferior vena cava is patent. Miscellaneous: There is mild for quadrant abdominal free fluid. IMPRESSION: 4 quadrant mild ascites noted, growing mass lesions throughout the liver parenchyma. Nonvisualization of the left kidney due to overlying bowel gas and inability of the patient to fully cooperate with positioning and breath holding. Dictated by: Donnie Harrington M.D. 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 He is receiving Ertapenem for a MSSA pneumonia and as empiric coverage for intrabdominal sepsis. He began FOLFOX 04/13 and completed 1st cycle 04/15. #. Acute Hypoxemic respiratory failure, on mechanical ventilation for 14 days, extubated day 2, improved. - Likely is multifactorial with the pneumonia, pulmonary embolism, and mucous plugging. S/p bronchoscopy x2. - Extubated 04/16/2017, maintains O2 saturation with hi-flow NC. Will continue to wean off the O2 as tolerated. - Taper off the precedex and decrease fentanyl. - Patient has been agitated and anxious after extubation, but this is likely due to delirium. Will continue with low dose of Zydis 2.5mg Q12H and PRN Lorazepam 0.25-0.5mg IV. - PT and Swallow Eval today. Will keep him NPO with ice chips until clear by Speech. - Family has decided not to re-intubate in the event of recurrent respiratory distress. #. Sepsis due to left lower lobe MSSA pneumonia, new and improved. - Appears to be methicillin-sensitive Staphylococcus aureus, confirmed by bronch washing x2. - WBC trending down and no fever. - Appreciate Dr. Goldberg's input. - Continue empirical antibiotic with Ertapenem, which has good activity against MSSA and provides some broader spectrum coverage for aspiration type pneumonia. Day #8 on Ertapenem. Will continue for a total of 10 days per ID team. - Will stop following Procalcitonin, which would be elevated due to hepatic metastases. - No other apparent source of infection. The first ascitic fluid analysis did not meet the standard criteria for bacterial peritonitis. Culture shows no growth. #. Acute bilateral massive pulmonary embolism with obstructive shock, POA, active. - RV pressure overload on echo but no radiographic resolution of his extensive bilateral PE's despite EKOS and systemic anticoagulation with heparin and now argatroba. - Possible this is not all thrombosis but might have some degree of tumor emboli given extent of hepatic involvement. - Systemic thrombolysis not an option given his history of Gastric tumor and recent GI bleeds requiring transfusion. Surgical thrombectomy is also not a consideration given his grim primary diagnosis. - Continue with Argatroban drip and monitor PTT level. #. Abdominal ascites, recurrent and active. - Likely a reflection of his elevated RV pressure and hypoalbuminemia along with his tumor involvement. - First paracentesis removed 1600ml on 04/10/17; subsequent paracenteses on 04/12 and 04/15 removed 6L of bile stained ascitic fluid . Intra-abdominal pressure is 15 today. - 50gms Albumin replacement given after the most recent paracentesis on 04/15. - Studies of the ascitic fluid from the first paracentesis on 04/10/17 showed that the SAAG is 0.8, consistent with an exudative type ascites. - Will consider repeating therapeutic large volume paracentesis as needed #. Electrolytes abnormalities, new and active. - Hypernatremia: Na level gradually trending up. Discussed with pharmacy about replacing the NS in his medications to D5W. Will also increase free water in his TPA - Hyperglycemia: multifactorial from TPN, Decadron and stress. Adjusted SQ sliding scale. Can add insulin to TPN if daily requirement excessive. #. Metastatic liver cancer due to poorly differentiated adenocarcinoma, active. - Metastatic HER-2 negative adenocarcinoma, likely gastric in origin. CT abd/ pelvis on 04/11/17 revealed numerous variably sized hepatic metastases, most confluent in the left hepatic lobe. - Chemotherapy per Oncology. The patient received one course of FOLFOX chemotherapy from April 13 through April 15, 2017. No acute toxicities identified. White cell count remains elevated. - Treatment would be largely palliative and fraught with multiple potential catastrophic complications. Family has been repeatedly informed of the significant risks for catastrophic complications for which there may be no effective treatment. In the event of a cardiac arrest, he is now DNAR and no reintubation. - Given concerns for active Staphylococcus aureus infection, have a low threshold for initiating growth factor support. - Await results of Peutz-Jeghers syndrome testing. - Continue pain management with Fentanyl and Decadron for adjunctive pain treatment. Will wean down the Fentanyl and consider PRN IV Hydromorphone for breakthrough pain. Patient is not a good candidate for Fentanyl patch give his cachetic state. #. Hyperbilirubinemia, acute and active. - LFTs continue to be elevated, likely secondary to hepatic metastases. - Abdominal U/S and abdominal/pelvis CT showed growing mass lesions throughout the liver parenchyma. #. Solitary kidney, chronic. 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 For now renal fxn and UOP are adequate. Will continue to monitor. Patient is on PPO BID for GI prophylaxis. He is on Argatroban ggt for PE, which is therapeutic. Pain Evaluation: Adequate Pain Control GI Prophylaxis: Proton Pump Inhibitor VTE Prophylaxis: Other (Argatroban ggt) Resuscitation Status: DNR/DNI:Do Not Resuscitate/Intubate (max support but DNR) Mary Bourgeois DO Apr 17, 2017 07:52
--- NOTE | 2017-04-17 10:07 | PROG NOTE ---
[address] [address] PROGRESS NOTE PATIENT: DREA PELAYO : 1990 MR#: [id number] ADMIT: 04/03/2017 JOB ID: [id number] DATE: 04/17/2017 REASON FOR FOLLOWUP: Profound leukocytosis in a patient with metastatic gastric adenocarcinoma whose sputum is at least colonized with MSSA. INTERVAL HISTORY: Over the past 24 hours the patient has been successfully extubated. This morning, he is able to discuss with us his situation in detail. He reports it was very frightening to be intubated and it is still frightening for him to be rolled to one side to the other for positioning purposes because apparently he gets short of breath and/or has increasing abdominal pain. He has little in the way of respiratory complaint today even though he is on high-flow nasal oxygen. He has minimal cough and no chest pain, but he does note increasing abdominal fullness as his ascites worsens once again. PHYSICAL EXAMINATION: Reveals an extubated gentleman on high-flow nasal oxygen saturating well. He is afebrile temp 36.6. He has been afebrile for 48 hours exactly, pulse 70, respiratory rate in the teens, blood pressure 111/63, no vasopressors are being used. He has obvious scleral icterus. Oral cavity without thrush or hairy leukoplakia. His lungs are scattered rhonchi bilaterally, but not impressive. Cardiac tones mildly tachycardic without murmur. His abdomen is quite distended and becoming increasingly firm day by day. Recall that he had a high-volume paracentesis three days ago. He still has scrotal edema and impressive lower extremity edema. LABORATORIES: Include a white count which is basically stable 22,000. His creatinine 0.64. His procalcitonin is 7, and I would stop checking it as it never changes and is not something we can reproducibly follow in someone with extensive liver mets. In terms of cultures we have the two bronch washes from the and that grew MSSA. Otherwise no new cultures are available. The ascitic fluid was culture negative. Today's chest radiograph when compared to one from a couple days ago is almost superimposable with a diffuse right middle and lower lobe interstitial type process. This is my reading as the radiologists have not yet officially read today's film. IMPRESSION: This patient continues to gradually improve, and he is now three days status post receipt of his initial chemotherapy for metastatic gastric carcinoma whether or not he has a significant pulmonary infection remains unclear. His white count and procalcitonin are undoubtedly elevated due to his malignancy rather than infection, and he has really no fever or significant sputum production at this time. Nonetheless, his sputum did reproducibly grow methicillin sensitive Staphylococcus aureus, and I think we must take seriously the possibility of methicillin sensitive Staphylococcus aureus tracheobronchitis or pneumonia and also the possibility of some degree of aspiration pneumonia. RECOMMENDATIONS: 1. Will continue with the ertapenem to complete at least a 10-day course. 2. Will continue to closely follow this complex patient with you.
--- NOTE | 2017-04-17 10:20 | NUR ---
NUTRITION FOLLOW-UP: ASSESS: 27 YO male with a recent diagnosis of metastatic gastric cancer with family history of Peutz-Jeghers syndrome admitted to CCU for bilateral DVT and sudden onset shortness of breath. Pt extubated 04/16. Pt now having bowel movements. TPN continues, phos low today. Enteral feeding was discontinued due to high residuals. Pt received FOLFOX chemotherapy. Plan for ST eval to hopefully allow more fluids/ice chips. PMHx: Metastatic gastric cancer, upper GI bleed, liver biopsy, Peutz-Jeghers syndrome, LE DVT. DIET: NPO. ENTERAL FEEDING: OFF TPN: 300 g Dex, 120 g AA, 10 g lipids providing 1600 kcal, 120 g protein; 80% calorie, 100% protein needs. LABS: Reviewed. Na 149, BUN 63, Cr 0.64, Glu 162, Phos 2.0 MEDICATIONS: Reviewed. Insulin, Fentanyl, Decadron, Precedex. GI: 1 BM 04/17. SKIN: No issues reported. ANTHROPOMETRICS: Current Wt: 79.9 kg, BMI 19.8 kg/m2. Admit weight: 81.0, IBW: 100 kg (81% IBW) ESTIMATED NEEDS (CANCER): Calories: 8836-9336 kcal/day (25-30 kcal/kg BW) Protein: 80-120 g/day (1.0-1.5 g/kg BW) Fluid: Approx. 2425 mL (30mL/kg BW) NUTRITION DIAGNOSIS: 1) Inadequate oral intake related to altered GI function, as evidenced by NPO/vent status, enteral feeding on hold - PERSISTS. 2) Increased nutrient needs related to cancer, as evidenced by new gastric cancer w/ liver mets, 81% IBW - PERSISTS. INTERVENTION: 1) Now that pt is no longer receiving Propofol, recommend increasing TPN to 120 g AA, 300 g Dex, 50 g lipids to provide 2000 kcal, 120 g protein; meeting 100% calorie/protein needs. Discussed with Pharmacy. 2) Once electrolytes WNL, recommend increasing TPN to goal of 120 g AA, 350 g Dex, 60 g lipids to provide 2270 kcal, 120 g protein; meeting 100% calorie/protein needs. 3) Once able, diet advancement per speech therapy. MONITOR/EVALUATE: NPO status, TPN tolerance/advance, labs, weight, POC, GI/nutrition status. Follow per high nutrition risk guidelines.
--- NOTE | 2017-04-17 10:52 | PCM.PNMED ---
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 Has had trial of EKOS 04/03 but repeat CTPA 04/05showed no resolution of his bilat PE's. Had repeat CTPA and CT of Abd/Pelvis 04/11 which was personally reviewed showed NO resolution of extensive thrombus in both main Pulmonary arteries and nearly all branches, especially those in the RLL and RML. In addition there appears to be progressive disease in his liver with near total replacement of the left lobe with masses. There was increased ascites and evidence for peritioneal carcinomatosis. On 04/11, I spoke at length with Curtis's mother, sister, and father about the results of the CT's and the events of the last 24 hours. We discussed possible options for going forward and I essentially presented 3 different paths. First, I offered that we could continue fully aggressive support, as we are currently, with the expectation that he will eventually of his rapidly growing tumor, possibly within days or a couple weeks. The next option centers on administration of chemotherapy directed at his disseminated tumor along with a jermaine description of the multiple catastrophic complications that could occur as a result and, for which, we would have no effective treatment. These include gastric rupture, hepatic failure, severe GI hemorrhage, tumor lysis, renal failure, ARDS, sepsis, etc. Finally, we discussed withdrawal of Curtis's ventilator and shifting focus to comfort care with the expectation that he would within hours to a few days. I've spoken with Curtis's oncologist, Dr. Suazo, who offered to meet with me and the family later today to give them a full understanding of the choices and likely outcomes. Palliative Care kindly agreed to take part in the discussion as well. I also offered to seek transfer of Curtis to a tertiary center such as if the family wishes to explore that however I told them that I doubted that could offer any additional options that might alter the final outcome. On 04/12, we had another family meeting to discuss prognosis and formulate a plan. Dr. Suazo, Dr. Calvo, Dr. Bourgeois and I met with the family along with nursing staff. We again presented the above 3 options and answered all questions. In addition, we asked the family to consider whether it was appropriate for Curtis to continue on Full Code status. After several hours deliberation, the family reported to me, Dr. Calvo, Dr. Bourgeois and staff that they had decided that 1) they would like for Curtis to begin chemo and 2) his code status should change to DNAR. We repeated the large volume therapeutic paracentesis and removed 6 L thin bile stained ascitic fluid without complications. He completed the first cycle of FOLFOX 04/15 Interval History Successfully extubated 04/16 and over night has tolerated weaning of his high flow O2 from FiO2 0.6 to currently 0.3 @ 30 L/min. More alert today and interactive, following simple commands. Denies pain, nausea. + Thirsty Exam Vital Signs Vital Sign - Last Date Time Temp Pulse Resp B/P Pulse Ox O2 Delivery O2 Flow Rate FiO2 04/17/17 08:00 36.7 82 20 115/57 96 high flow 30 04/17/17 04:05 30 Intake and Output 04/16/17 04/16/17 04/17/17 Cumulative From/Thru 15:00 23:00 07:00 04/03/17 07:34 - 04/17/17 06:29 Intake Total 2255 ml 1586 ml 71520 ml Output Total 1700 ml 1000 ml 86781 ml Balance 555 ml 586 ml 47179 ml Intake Oral 0 ml IV Total 1455 ml 772 ml 36847 ml Tube Feeding 1407 ml TPN/PPN 800 ml 814 ml 29414 ml Packed Cells 351 ml Tube Irrigant 480 ml Output Urine Total 1700 ml 950 ml 83400 ml Gastric Drainage Total 1335 ml Drainage Total 01083 ml Other 50 ml 1615 ml # Bowel Movements 1 1 2 Exam Pale, cachectic young man speaks in short sentences with soft voice. Afeb, SpO2 95% Lungs Decreased BS with crackles at both bases CV RRR, no murmur today. no g/r Abd Firm and distended, + BTs, Firm epigastric mass likely representing his Lt liver lobe Ext Warm, Pulses trace at both ankles. 3 + edema both LE's to knees Neuro Moves all 4 ext purposefully IVs and Medications Medications Reviewed: Medications were reviewed in detail Lab and Diagnostics Result Diagram: 04/17/1731404/17/17314 Microbiology Bronchial washing grew MSSA 04/09 X-Rays, CTs and MRIs CT ANGIO CHEST PULMONARY EMBOLISM 1. Slight decrease in severe pulmonary embolic disease with resolution of the previously seen saddle embolus spanning the main pulmonary artery bifurcation. However, significant embolic burden remains bilaterally. 2. Improved aeration of the left lower lobe. Decreased right lower lobe pneumonia. 3. Moderate ascites and severe hepatic metastatic disease. 4. Healing left rib fractures. 5. Gastroesophageal reflux. Dictated by: Landon Noel M.D. on 04/11/2017 at 10:12 CT ABDOMEN AND PELVIS WITH CONTRAST 1. Interval increased amount of large abdominal and pelvic ascites, presumably from peritoneal carcinomatosis. 2. Numerous variably sized hepatic metastases again noted, most confluent in the left hepatic lobe. 3. 6.4 x 5.5 x 3.5 cm left pelvic cystic lesion appears to arise from the left seminal vesicle. 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 4. Small bibasilar mobile pleural effusions, with associated compressive atelectasis. Dictated by: Moisés Brasher M.D. on 04/11/2017 at 10:32 Chest x-ray Stable pulmonary venous engorgement and support devices. Dictated by: New Powers M.D. on 04/03/2017 at 11:01 CT angiogram 1. Multiple, bilateral large pulmonary emboli. 2. Flattening of the cardiac interventricular septum suggesting right heart strain. 3. Hepatic metastatic disease. 4. Findings telephoned to Dr. Nathan Paz on 04/03/17 at 0817 hrs. Dictated by: Louisa Jones MD, PhD on 04/03/2017 at 8:13 Chest x-ray 1. Endotracheal tube and nasogastric tube positioned as described. 2. Mild cardiomegaly and moderate vascular congestion. Dictated by: Tristin Mckenzie M.D. on 04/03/2017 at 9:55 Chest x-ray 1. Endotracheal tube is positioned at the thoracic inlet. 2. Mild cardiomegaly and vascular congestion is similar to the prior study. Dictated by: Tristin Mckenzie M.D. on 04/03/2017 at 10:03 US ABDOMEN IMPRESSION: 4 quadrant mild ascites noted, growing mass lesions throughout the liver parenchyma. Nonvisualization of the left kidney due to overlying bowel gas and inability of the patient to fully cooperate with positioning and breath holding. Dictated by: Donnie Harrington M.D. on 04/10/2017 CT ANGIO CHEST PULMONARY EMBOLISM IMPRESSION: 1. Slight decrease in severe pulmonary embolic disease with resolution of the previously seen saddle embolus spanning the main pulmonary artery bifurcation. However, significant embolic burden remains bilaterally. 2. Improved aeration of the left lower lobe. Decreased right lower lobe pneumonia. 3. Moderate ascites and severe hepatic metastatic disease. 4. Healing left rib fractures. 5. Gastroesophageal reflux. Dictated by: Landon Noel M.D. on 04/11/2017 CT ABDOMEN AND PELVIS WITH CONTRAST IMPRESSION: 1. Interval increased amount of large abdominal and pelvic ascites, presumably from peritoneal carcinomatosis. 2. Numerous variably sized hepatic metastases again noted, most confluent in the left hepatic lobe. 3. 6.4 x 5.5 x 3.5 cm left pelvic cystic lesion appears to arise from the left seminal vesicle. 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 4. Small bibasilar mobile pleural effusions, with associated compressive atelectasis. Dictated by: Moisés Brasher M.D. on 04/11/2017 X-RAY CHEST ONE VIEW, PORTABLE IMPRESSION: 1. Support tubes appear in place. PICC line appears to be in the atrium 2. Mild right lower lobe interstitial infiltrate. Persistent left lower lobe consolidation. Small left pleural effusion. Findings compatible with pneumonia/ aspiration. Dictated by: Dvaid Greer M.D. on 04/13/2017 X-RAY CHEST ONE VIEW, PORTABLE IMPRESSION: Stable chest. Dictated by: Paul Nieves M.D. on 04/14/2017 X-RAY CHEST ONE VIEW, PORTABLE IMPRESSION: 1. Asymmetric pulmonary edema with superimposed bibasilar pneumonia. Dictated by: Paul Nieves M.D. on 04/14/2017 X-RAY CHEST ONE VIEW, PORTABLE IMPRESSION: 1. Stable right basilar infiltrates. Improving left lower lobe volume loss. 2. Stable support devices. Dictated by: New Powers M.D. on 04/15/2017 X-RAY CHEST ONE VIEW, PORTABLE IMPRESSION: Bilateral pulmonary airspace opacities similar to prior examination suggesting bilateral aspiration versus pneumonia. Dictated by: Jak JOHNSON Interpreted: Paul Nieves MD on 04/16/2017 Cardiac Echo Impressions Interpretation Summary Severely dilated right ventricle with moderate to severely reduced systolic function. Thrombus is visualized in the right ventricle. There is a catheter seen in the right atrium. Comparison is made with the echocardiogram of 04/03/2017, right ventricle size has decreased slightly. Electronically signed by: Karishma Morrow on Reading Physician:04/05/2017 02:03 PM . Additional Diagnostics PROCEDURE: US ABDOMEN FINDINGS: Liver: Liver is enlarged in size and heterogeneous in echotexture with multiple hepatic mass lesions previously identified again seen, having enlarged in size from the comparison ultrasound 03/07/17 and the largest measures up to 5.5 x 5.0 x 4.3 cm. Gallbladder: The gallbladder watts just above the upper limits of normal at 3.1 mm, and appears to contain sludge. A small amount of adjacent free fluid can be seen. Biliary ducts: Intrahepatic bile ducts are non-dilated. Extrahepatic bile duct caliber measures 3.5 mm. Normal is 6-7 mm or less in diameter, or 10 mm or less post-cholecystectomy. Pancreas: Visualized portions of the pancreas are sonographically normal. Spleen: Spleen is normal in size and homogeneous in echotexture. Kidneys: The right kidney is normal in size and echotexture. Right kidney measures 16.3 cm long; left kidney could not be seen. No solid masses. Aorta: Visualized aorta is normal in caliber at less than 3 cm. Iliacs: Proximal common iliac arteries are normal in caliber at less than 2.5 cm. IVC: Intrahepatic inferior vena cava is patent. Miscellaneous: There is mild for quadrant abdominal free fluid. IMPRESSION: 4 quadrant mild ascites noted, growing mass lesions throughout the liver parenchyma. Nonvisualization of the left kidney due to overlying bowel gas and inability of the patient to fully cooperate with positioning and breath holding. Dictated by: Donnie Harrington M.D. 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 He is receiving Ertapenem for a MSSA pneumonia and as empiric coverage for intrabdominal sepsis. He began FOLFOX 04/13 and completed 1st cycle 04/15. IMP Resp failure Multifactorial with massive PE, LLL PNA and marked abdominal distension all contributing. There has been NO radiographic resolution of his extensive bilateral PE's despite EKOS and systemic anticoagulation with heparin and argatroban now. His tense ascites has been drained x2 but is reaccumulating as anticipated. His FiO2 has remained stable over night. He is now extubated but very weak and requiring high flow O2 to maintain SpO2. Day #7 empiric ertapenem for LLL PNA. Following the removal of 6 L ascitic fluid 04/12 and again on 04/15, his O2 requirements decreased and he appears more comfortable. Will DC the dexmedetomidine and taper fentanyl gtt, using bolus dilaudid for pain control. PE Bilat Massive PE. Had RV pressure overload on echo but no radiographic improvement after EKOS and anticoagulation on followup CTs. Possible that all material in pulmonary circulation is not thrombosis but instead some degree of tumor emboli given extent of hepatic involvement. He is undoubtably thrombophilic due to his advanced gastric cancer. Systemic thrombolysis, even at reduced dose not a safe option given his history of Gastric tumor and recent GI bleeds requiring transfusion. An attempt at catheter directed therapy with EKOS did not succeed and surgical thrombectomy is not a consideration given his primary diagnosis and exceeding grim prognosis based on that. Remains therapeutic on Argatroban gtt. care home anticoagulation in patients with solid tumor can be difficult with high rate of failure for coumadin. Gastric CA HER 2 negative and he has completed cycle of FOLFOX with dose reduction. His potassium, uric acid and phosphorus are stable or improved. TPN has been adjusted. No utility for gut PO4 binders as he has no gut function. His family decided to begin chemotherapy and have been fully and repeatedly informed of the significant risks for catastrophic complications for which there may be no effective treatment. In the event of a cardiac arrest, he is now DNAR / DNI and this was reaffirmed with his family on 04/16. Will try to cautiously introduce oral intake now that he has had some BMs. Ascites A reflection of his elevated RV pressure and hypoalbuminemia along with direct tumor involvement. Improved after 6 L removed 04/12 and . Given total 50 gms albumin following the last procedure. Hyperglycemia TPN, Decadron and stress all contribute. Adjusted SQ sliding scale, Can add insulin to TPN if daily requirement excessive. 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 For now renal fxn and UOP are adequate and there is no indication for renal replacement. Peutz Delfina Documented family history and almost certainly the cause of his advanced gastric adenocarcinoma REC FOLFOX per Oncology, Filgrastim per Oncology once chemo completed if WBC dips. serial metabolic labs. Rasburicase if urate > 7.5 Abx per ID Repeat therapeutic large volume paracentesis repeated as needed DC propofol. taper precedex and fentanyl. Continue Zydis for sedation. Decadron for adjunctive pain treatment TPN Argatroban GI prophylaxis DNAR Pain Evaluation: Adequate Pain Control GI Prophylaxis: Proton Pump Inhibitor VTE Prophylaxis: Other (Argatroban ggt) Resuscitation Status: DNR/DNI:Do Not Resuscitate/Intubate (max support but DNR) Time spent 40 minutes critical care exclusive of shared time and procedures Dony Vega MD Apr 17, 2017 10:46
--- NOTE | 2017-04-17 11:41 | DRSVH ---
PROCEDURE: X-RAY CHEST ONE VIEW, PORTABLE ([id number]) INDICATIONS: fu post extubation TECHNIQUE: One view of the chest was acquired. COMPARISON: [facility], CR, XR CHEST 1VW (PORTABLE), 04/15/2017, 4:43. [facility], CR, XR CHEST 1VW (PORTABLE), 04/14/2017, 15:40. [facility], CR, XR CHEST 1VW (PORT ABLE), 04/14/2017, 4:30. [facility], CR, XR CHEST 1VW (PORTABLE), 04/16/2017, 5:25. FINDINGS: Surgical changes and devices: Stable positioning of left PICC. Lungs and pleura: Trace pleural effusions. No pneumothorax. Persistent mid lung and basilar patchy air space opacities. Mediastinum: Mediastinal contours appear normal. Heart size is normal. Bones and chest wall: No suspicious bony lesions. Overlying soft tissues appear unremarkable. IMPRESSION: Persistent mid/basilar patchy airspace opacities indicating bilateral pneumonia. Trace pleural effusions. Dictated by: Jak Ortiz [facility] Interpreted: Kenyon Spear MD on 04/17/2017 at 9:36 Approved by: Kenyon Spear M.D. on 04/17/2017 at 11:39
[2017-04-17] MEDS ORDERED: DEXTROSE 5% IV SCH (13:00)
[2017-04-17] MEDS ORDERED: ERTAPENEM IV SCH (13:00)
--- NOTE | 2017-04-17 13:09 | PCM.PHAPRO ---
Progress TPN tpn#8 PARENTERAL NUTRITION ORDERS 8 17-Apr-17 Standard Hang Time: 2100 Substrates Total kcal: 1600 AMINO ACIDS 120 g DEXTROSE 300 g Total Volume (mL): 2500 LIPIDS 10 g Sterile Water for Injection mL To Infuse Over (hrs): 24 Total Volume 2500 mL At at a rate of (mL/hr): 104 Additives Sodium Chloride 20 mEq "typical" daily requirements Sodium Acetate 10 mEq Sodium 50-120mEq Potassium Chloride 40 mEq Potassium 60-120mEq Potassium Phosphate 40 mEq Phosphate 20-40mEq Calcium Gluconate 9.3 mEq Magnesium 8-32mEq Magnesium Sulfate 12 mEq Calcium 9-22mEq Acetate* 80-120mEq Chloride* 80-120mEq Regular Insulin 10 units *Depending on acid-base status Famotidine mg Multivitamins 1 std dose Insulin Regimen Trace Elements 1 std dose none Thiamine mg Regular Low Intensity Subcut Folic Acid mg Regular Medium Intensity Subcut Ascorbic Acid mg Regular High Intensity Subcut Regular Insulin Infusion Other: Joshua Floyd Pharm D Apr 17, 2017 13:09
--- NOTE | 2017-04-17 17:07 | NUR ---
Respiratory/mentation/BM Pt continues to be on high flow O2 30L at 30% FIO2, sats in the mid 90s. After speech eval, pt was getting anxious, tachycardic, and tachypneic with restlessness. Gave total of 0.5mg ativan after precedex gtt weaned off. It didn't appear to change anxiety level in patient. Family at bedside assisting with positioning, oral care and companionship. Pt had two BMs (both large), new mepilex applied, skin under mepilex intact with blachable redness and small closed abrasion. Q2h turns continue however pt gets anxious and flings his legs around in bed as well as turns himself back on his back. Patient and family educated and reminded the importance of turning and repositioning to prevent further skin issues.
--- NOTE | 2017-04-17 17:30 | NUR ---
Evaluation completed. Please go to "Notes" then click on "Assessments and Notes" (bottom left corner of screen). Then select appropriate discipline tab on top of screen.
--- NOTE | 2017-04-17 18:10 | PCM.PNMED ---
Subjective Date of Service Apr 17, 2017 Subjective Mr Malloy is a 27 yo male recently diagnosed with gastric and no carcinoma with metastases to the liver, presented to hospital with saddle pulmonary embolism and respiratory failure. He was successfully extubated yesterday 04/16/2017 is now on high flow oxygen. No events reported overnight has remained hemodynamically stable maintaining good saturations on high flow O2. Continues to have bowel movements. Today on interview patient is able to speak in short sentences and follow commands, per mother patient is "L-O-O-P-Y" due to medications. He does not report any specific complaints aside from abdominal tightness. He has good urinary output and intra-abdominal pressures reported to be 15 by nurse also present at bedside during interview. Exam Vital Signs Vital Sign - Last Date Time Temp Pulse Resp B/P Pulse Ox O2 Delivery O2 Flow Rate FiO2 04/17/17 16:00 37.0 123 26 121/48 96 high flow 30 04/17/17 12:30 30 Intake and Output 04/16/17 04/16/17 04/17/17 Cumulative From/Thru 15:00 23:00 07:00 04/03/17 07:34 - 04/17/17 06:29 Intake Total 2255 ml 1586 ml 29835 ml Output Total 1700 ml 1000 ml 03787 ml Balance 555 ml 586 ml 37959 ml Intake Oral 0 ml IV Total 1455 ml 772 ml 05806 ml Tube Feeding 1407 ml TPN/PPN 800 ml 814 ml 40403 ml Packed Cells 351 ml Tube Irrigant 480 ml Output Urine Total 1700 ml 950 ml 60900 ml Gastric Drainage Total 1335 ml Drainage Total 24466 ml Other 50 ml 1615 ml # Bowel Movements 1 1 2 Exam General: Awake and alert laying in hospital bed in no acute distress, thin and frail appearing. High flow nasal cannula in place HEENT: Normocephalic, atraumatic. Neck: Supple with full range of motion. Cardiovascular: Regular rate and rhythm with no murmurs Pulmonary: Bilateral expiratory rales. Normal respiratory effort with no use of accessory muscles. Abdomen: Firm to palpation, distended. Nontender. Extremities: Bilateral lower extremity pitting edema to mid tibial area. Warm to palpation. Neurological: Cranial nerves grossly intact. Psychiatric: Alert and oriented 1 IVs and Medications Medications Reviewed: Medications were reviewed in detail Lab and Diagnostics Result Diagram: 04/17/17 0315 04/17/17 0315 Microbiology Bronchial washing grew MSSA 04/09 X-Rays, CTs and MRIs CT ANGIO CHEST PULMONARY EMBOLISM 1. Slight decrease in severe pulmonary embolic disease with resolution of the previously seen saddle embolus spanning the main pulmonary artery bifurcation. However, significant embolic burden remains bilaterally. 2. Improved aeration of the left lower lobe. Decreased right lower lobe pneumonia. 3. Moderate ascites and severe hepatic metastatic disease. 4. Healing left rib fractures. 5. Gastroesophageal reflux. Dictated by: Landon Noel M.D. on 04/11/2017 at 10:12 CT ABDOMEN AND PELVIS WITH CONTRAST 1. Interval increased amount of large abdominal and pelvic ascites, presumably from peritoneal carcinomatosis. 2. Numerous variably sized hepatic metastases again noted, most confluent in the left hepatic lobe. 3. 6.4 x 5.5 x 3.5 cm left pelvic cystic lesion appears to arise from the left seminal vesicle. 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 4. Small bibasilar mobile pleural effusions, with associated compressive atelectasis. Dictated by: Moisés Brasher M.D. on 04/11/2017 at 10:32 Chest x-ray Stable pulmonary venous engorgement and support devices. Dictated by: New Powers M.D. on 04/03/2017 at 11:01 CT angiogram 1. Multiple, bilateral large pulmonary emboli. 2. Flattening of the cardiac interventricular septum suggesting right heart strain. 3. Hepatic metastatic disease. 4. Findings telephoned to Dr. Nathan Paz on 04/03/17 at 0817 hrs. Dictated by: Louisa Jones MD, PhD on 04/03/2017 at 8:13 Chest x-ray 1. Endotracheal tube and nasogastric tube positioned as described. 2. Mild cardiomegaly and moderate vascular congestion. Dictated by: Tristin Mckenzie M.D. on 04/03/2017 at 9:55 Chest x-ray 1. Endotracheal tube is positioned at the thoracic inlet. 2. Mild cardiomegaly and vascular congestion is similar to the prior study. Dictated by: Tristin Mckenzie M.D. on 04/03/2017 at 10:03 US ABDOMEN IMPRESSION: 4 quadrant mild ascites noted, growing mass lesions throughout the liver parenchyma. Nonvisualization of the left kidney due to overlying bowel gas and inability of the patient to fully cooperate with positioning and breath holding. Dictated by: Donnie Harrington M.D. on 04/10/2017 CT ANGIO CHEST PULMONARY EMBOLISM IMPRESSION: 1. Slight decrease in severe pulmonary embolic disease with resolution of the previously seen saddle embolus spanning the main pulmonary artery bifurcation. However, significant embolic burden remains bilaterally. 2. Improved aeration of the left lower lobe. Decreased right lower lobe pneumonia. 3. Moderate ascites and severe hepatic metastatic disease. 4. Healing left rib fractures. 5. Gastroesophageal reflux. Dictated by: Landon Noel M.D. on 04/11/2017 CT ABDOMEN AND PELVIS WITH CONTRAST IMPRESSION: 1. Interval increased amount of large abdominal and pelvic ascites, presumably from peritoneal carcinomatosis. 2. Numerous variably sized hepatic metastases again noted, most confluent in the left hepatic lobe. 3. 6.4 x 5.5 x 3.5 cm left pelvic cystic lesion appears to arise from the left seminal vesicle. 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 4. Small bibasilar mobile pleural effusions, with associated compressive atelectasis. Dictated by: Moisés Brasher M.D. on 04/11/2017 X-RAY CHEST ONE VIEW, PORTABLE IMPRESSION: 1. Support tubes appear in place. PICC line appears to be in the atrium 2. Mild right lower lobe interstitial infiltrate. Persistent left lower lobe consolidation. Small left pleural effusion. Findings compatible with pneumonia/ aspiration. Dictated by: David Greer M.D. on 04/13/2017 X-RAY CHEST ONE VIEW, PORTABLE IMPRESSION: Stable chest. Dictated by: Paul Nieves M.D. on 04/14/2017 X-RAY CHEST ONE VIEW, PORTABLE IMPRESSION: 1. Asymmetric pulmonary edema with superimposed bibasilar pneumonia. Dictated by: Paul Nieves M.D. on 04/14/2017 X-RAY CHEST ONE VIEW, PORTABLE IMPRESSION: 1. Stable right basilar infiltrates. Improving left lower lobe volume loss. 2. Stable support devices. Dictated by: New Powers M.D. on 04/15/2017 X-RAY CHEST ONE VIEW, PORTABLE IMPRESSION: Bilateral pulmonary airspace opacities similar to prior examination suggesting bilateral aspiration versus pneumonia. Dictated by: Jak Ortiz A Interpreted: Paul Nieves MD on 04/16/2017 Cardiac Echo Impressions Interpretation Summary Severely dilated right ventricle with moderate to severely reduced systolic function. Thrombus is visualized in the right ventricle. There is a catheter seen in the right atrium. Comparison is made with the echocardiogram of 04/03/2017, right ventricle size has decreased slightly. Electronically signed by: Karishma Morrow on Reading Physician:04/05/2017 02:03 PM . Additional Diagnostics PROCEDURE: US ABDOMEN FINDINGS: Liver: Liver is enlarged in size and heterogeneous in echotexture with multiple hepatic mass lesions previously identified again seen, having enlarged in size from the comparison ultrasound 03/07/17 and the largest measures up to 5.5 x 5.0 x 4.3 cm. Gallbladder: The gallbladder watts just above the upper limits of normal at 3.1 mm, and appears to contain sludge. A small amount of adjacent free fluid can be seen. Biliary ducts: Intrahepatic bile ducts are non-dilated. Extrahepatic bile duct caliber measures 3.5 mm. Normal is 6-7 mm or less in diameter, or 10 mm or less post-cholecystectomy. Pancreas: Visualized portions of the pancreas are sonographically normal. Spleen: Spleen is normal in size and homogeneous in echotexture. Kidneys: The right kidney is normal in size and echotexture. Right kidney measures 16.3 cm long; left kidney could not be seen. No solid masses. Aorta: Visualized aorta is normal in caliber at less than 3 cm. Iliacs: Proximal common iliac arteries are normal in caliber at less than 2.5 cm. IVC: Intrahepatic inferior vena cava is patent. Miscellaneous: There is mild for quadrant abdominal free fluid. IMPRESSION: 4 quadrant mild ascites noted, growing mass lesions throughout the liver parenchyma. Nonvisualization of the left kidney due to overlying bowel gas and inability of the patient to fully cooperate with positioning and breath holding. Dictated by: Donnie Harrington M.D. 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 Extubated successfully now receiving chemotherapy and continue treatment. Massive bilateral pulmonary emboli with obstructive shock, acute. Slowly improving. -There has been no radiographic improvement with bilateral PEs which have been refractory to EKOS and systemic anticoagulation, possibly suspected PEs are in fact tumor emboli. -Confirmed home dose of Lovenox 80 mg daily, most likely missing intermittent dosing prior to admission -Repeat CT shows unchanged clot burden despite treatment with tPA and EKOS 3, possible this is secondary to tumor emboli -Probable lysis not an option secondary to primary diagnosis of gastric tumor and prognosis -Continue with Argatroban drip, monitor PTT level -Patient extubated on 04/16/2017 Acute hypoxic respiratory failure, POA, improving -ICU/pulmonology team following greatly appreciated recommendations and treatment direction. - Multiple possibilities including pneumonia, PE, tumor emboli, mucous plugging - Bronchoscopy 2 with removal of mucous plug - Extubated 04/16/2017, maintains O2 saturation with high flow O2 continue to wean as tolerated - Patient remained somewhat anxious current meds include olanzapine 2.5mg Q12H and PRN Lorazepam 0.25-0.5mg IV. - Continue to taper off Precedex and fentanyl - Continue chips and sips awaiting speech Gastric adenocarcinoma, present on admission. Ongoing -ICU team continues management for patient and care plan. Their time and expertise is greatly appreciated -Collagen following patient -HER-2 negative -Chemotherapy initiated FOLFOX per oncology -Suspicion for tumor lysis syndrome with rising phosphate, uric acid and decrease in bicarbonate. -We will continue to monitor - overlaying grim prognosis Pneumonia, not present on admission, improving. -Bronchial washing showed staph aureus, resistant to erythromycin. The patient also has had evidence of left lower lobe collapse likely from secretions. -Discontinued Zosyn, switched to nafcillin - also discontinued -Pro calcitonin continues to trend up though in the setting of liver metastasis unreliable, we will stop following this value -WBC continues to trend down, remains afebrile -ID following, recommendations appreciated -Ertapenem started 04/10/2017 -Bronchoscopy as above -Continue to monitor Sepsis secondary to HCAP. Acute and improving. -Most likely MSSA pneumonia, confirmed by bronchoscopy and lavage -CT angio showed bilateral pleural effusions, worsening bibasilar pneumonia pattern, greater on the left than the right. -WBC trending down, afebrile -No longer following Pro calcitonin in the setting of hepatic metastases -Infectious disease following -Antibiotics as above -No vasopressor requirements Anasarca, new and active. The patient has significant volume overload from resuscitation. We will continue to monitor and diuresis as able. -Large volume paracentesis 3 -Albumin replacement -Ascitic fluid shows exudate -Urinary output remains adequate -Continue to monitor, most likely repeat paracentesis Acute iron deficiency anemia. Stable. - Secondary to hemodilution from aggressive fluid resuscitation. Possibly secondary to GI bleed from malignant gastric ulcers, but no sign of acute bleed at this time. Hb has been stable, so will switch from PPI drip to BID. - PRBCs on hold. Transfuse for HB <8. - Check H&H daily - Protonix 40 mg IV BID - Monitor for signs of acute bleeding Bilateral popliteal DVT, POA and active. - Pt diagnosed with bilateral large DVTs 3 weeks ago, placed on Lovenox at home with possible missed doses - Currently therapeutic on Argatroban Hyperbilirubinemia, new and active. - Bilirubin and Alkaline phos trending up; scleral icterus on exam; likely secondary to hepatic metastases. - Abdominal and pelvis CT shows growing mass lesions throughout liver parenchyma Constipation. Present on admission, resolved -Currently having multiple bowel movements without difficulty Malnutrition. Ongoing -Nutrition following, TPN started with concentrated formula Electrolytes abnormalities, new and active. -Per ICU note: - Hypernatremia: Na level gradually trending up. Discussed with pharmacy about replacing the NS in his medications to D5W. Will also increase free water in his TPA - Hyperglycemia: multifactorial from TPN, Decadron and stress. Adjusted SQ sliding scale. Can add insulin to TPN if daily requirement excessive. Solitary kidney, chronic. 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 For now renal fxn and UOP are adequate. Will continue to monitor. Patient is on PPO BID for GI prophylaxis. He is on Argatroban ggt for PE, which is therapeutic. Patient Status: Patient remains in ICU. GI Prophylaxis: Proton Pump Inhibitor VTE Prophylaxis: Other (Argatroban ggt) Resuscitation Status: DNR/DNI:Do Not Resuscitate/Intubate (max support but DNR) Time spent 20 minutes Attending Statement I agree with above history, physical, assessment and plan. BRICE BROWN DO Apr 17, 2017 18:09 Anna Marino MD Apr 17, 2017 18:48 - Hypernatremia: Na level gradually trending up. Discussed with pharmacy about replacing the NS in his medications to D5W. Will also increase free water in his TPA - Hyperglycemia: multifactorial from TPN, Decadron and stress. Adjusted SQ sliding scale. Can add insulin to TPN if daily requirement excessive. #. Metastatic liver cancer due to poorly differentiated adenocarcinoma, active. - Metastatic HER-2 negative adenocarcinoma, likely gastric in origin. CT abd/ pelvis on 04/11/17 revealed numerous variably sized hepatic metastases, most confluent in the left hepatic lobe. - Chemotherapy per Oncology. The patient received one course of FOLFOX chemotherapy from April 13 through April 15, 2017. No acute toxicities identified. White cell count remains elevated. - Treatment would be largely palliative and fraught with multiple potential catastrophic complications. Family has been repeatedly informed of the significant risks for catastrophic complications for which there may be no effective treatment. In the event of a cardiac arrest, he is now DNAR and no reintubation. - Given concerns for active Staphylococcus aureus infection, have a low threshold for initiating growth factor support. - Await results of Peutz-Jeghers syndrome testing. - Continue pain management with Fentanyl and Decadron for adjunctive pain treatment. Will wean down the Fentanyl and consider PRN IV Hydromorphone for breakthrough pain. Patient is not a good candidate for Fentanyl patch give his cachetic state. #. Hyperbilirubinemia, acute and active. - LFTs continue to be elevated, likely secondary to hepatic metastases. - Abdominal U/S and abdominal/pelvis CT showed growing mass lesions throughout the liver parenchyma. #. Solitary kidney, chronic. 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 For now renal fxn and UOP are adequate. Will continue to monitor. Patient is on PPO BID for GI prophylaxis. He is on Argatroban ggt for PE, which is therapeutic. GI Prophylaxis: Proton Pump Inhibitor VTE Prophylaxis: Other (Argatroban ggt) Resuscitation Status: DNR/DNI:Do Not Resuscitate/Intubate (max support but DNR) BRICE BROWN DO Apr 17, 2017 18:09
[2017-04-17] MEDS: HYDROmorphone 0.5 mg/0.5 mL iSecure Syringe IVPUSH PRN (20:24)
[2017-04-17] MEDS: TPN Per Pharmacist XX SCH (21:43)
[2017-04-17] MEDS: Total Parenteral Nutrition 1 BAG IV SCH (21:43)
[2017-04-18] VITALS (10 sets, daily range): BP systolic 112–124; BP diastolic 58–78; PULSE 104–130; RESP 22–41; O2SAT 93–97
[2017-04-18] MEDS: fentaNYL 2,500 mCg/250 mL 2,500 MCG in IV Premix 1 EACH IV SCH (00:04)
[2017-04-18] MEDS: HYDROmorphone 0.5 mg/0.5 mL iSecure Syringe IVPUSH PRN (00:22)
--- NOTE | 2017-04-18 01:05 | PROG NOTE ---
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 He was hospitalized on April 03, 2017, with massive pulmonary emboli. This is now hospital day 15. This is day five after initiation of FOLFOX chemotherapy and this would be slated for every two weeks. The original concern was that he would deteriorate potentially rapidly after chemotherapy; he seems to have tolerated this reasonably well. He has been able to be extubated, although he is still very fragile; it is not certain that he will be able to get out of the hospital and eat and maintain on his own, although he does seem to be improving. Problem list currently defined by the team includes the followin. Massive pulmonary embolism with circulatory compromise, now modestly improved. 2. Respiratory failure secondary to pulmonary embolism and likely infection, now clearing infection. 3. Massive hepatic metastases with massive ascites, possible peritoneal carcinomatosis, although the latter not confirmed yet. 4. Sepsis improving. 5. Anasarca related to hepatic metastases and hypoalbuminemia. 6. Upper gastrointestinal bleed with iron deficiency. Stable. 7. Malnutrition, currently on TPN. 8. Other problems as defined in the hospitalist's notes. SUBJECTIVE: The patient has been extubated. He is still quite confused but does respond to questions and can express whether or not he is in pain or other discomfort. He appears to be reasonably comfortable at this time. He is with his father who is staying at his bedside tonight. OBJECTIVE: His vital signs show a temperature of 36.8, pulse 117, respiratory rate 27, blood pressure 121/70, pulse ox 95% on 30% O2 at 20:30. Head and neck: No icterus. Oral mucosa appears clean without lesions, the lung irwin are clear to auscultation anteriorly and laterally. Cardiac: Pulse rate 110 on exam with bounding precordium. Abdomen extremely distended, tympanitic, with also likely ascites. Extremities with 3 to 4+ edema. LABORATORY VALUES: After chemotherapy the patient was ordered Neupogen as needed. Currently, his white count is 22.7 with 96% neutrophils, hemoglobin 8.0, hematocrit 25.1, MCV 70, consistent with iron deficiency. Platelets 631 consistent with iron deficiency and inflammatory response. Sodium is somewhat elevated at 149, chloride 116, potassium 4.0, CO2 18. BUN 55 and creatinine 0.6. Most recent liver enzymes were checked on April 16. His AST was 145, somewhat lower than previous values up to 247, ALT 69 stable, alkaline phosphatase 446, somewhat lower than previous values up to 505, but not really substantially different. Bilirubin total 4.8, somewhat improved over previous values up to 5.9, the procalcitonin 6.93. ASSESSMENT AND RECOMMENDATIONS: From an Oncology standpoint, the patient did receive systemic chemotherapy. This was a difficult decision because of his tenuous status. He seems to have tolerated this somewhat better than expected. It is not expected that there would be any response measurable at this point in time. This is mainly time to see if he could even tolerate chemotherapy, which he has. The real question is whether he will stabilize clinically enough to be able to receive a meaningful amount of treatment for his cancer. Ideally, if he had not developed this critical illness he would have been placed on FOLFOX chemotherapy and would have been expected to show response over 1-3 months, but not sooner, and he may have been eligible for clinical trial with immune therapy if he had responded. Given his critical illness and his tenuous status, we will have to monitor him on a daily basis to see if he even shows enough stabilization to receive another dose of chemotherapy, which would be in another nine days. Regarding his anticoagulation, he is now on Argatroban having been shown to be heparin resistant. Hemodynamically, he is gradually improved by the assessment of critical care team and Dr. Vega; further attempts to mechanically or otherwise treat his clots beyond Argatroban are not considered appropriate. Dr. Goldberg is following him from an Infectious Disease standpoint and he is receiving full nutritional and palliative care support. Will continue to monitor on a daily basis.
[2017-04-18] MEDS: Insulin Human REGular 300 Unit/3 mL Inj SUBQ SCH ×4 (02:17→20:30)
[2017-04-18 03:59] LABS: Mean Corpuscular Hemoglobin 22.2 pg (27.0-35.0); Mean Corpuscular Volume 69.9 fL (81-100)
[2017-04-18 04:30] LABS: Magnesium 2.2 mg/dL (1.6-2.6); Phosphorus 2.4 mg/dL (2.5-4.9)
[2017-04-18] MEDS: OLANZapine Zydis ODT 5 mg Tablet PO SCH (07:39)
[2017-04-18] MEDS: [UNRECOGNIZED DRUG - REMARK] XX SCH (07:39)
[2017-04-18] MEDS: Dexamethasone 4 mg/mL Inj IVPUSH SCH ×2 (07:39→20:28)
[2017-04-18] MEDS: Pantoprazole 4 mg/mL 10 mL Inj IVPUSH SCH ×2 (07:39→16:50)
--- NOTE | 2017-04-18 09:04 | PROG NOTE ---
[address] [address] PROGRESS NOTE PATIENT: DREA PELAYO : 1990 MR#: [id number] ADMIT: 04/03/2017 JOB ID: [id number] DATE: 04/18/2017 REASON FOR FOLLOWUP: MSSA tracheal bronchitis and/or pneumonia in a patient with underlying metastatic gastric adenocarcinoma. INTERVAL HISTORY: Today, the patient is awake and oriented though at times seems unable to answer questions or slightly confused. He denies fevers, chills. Denies respiratory distress though he is obviously breathing very rapidly and does complain of abdominal distention. Additionally his parents are with him in the room. Note that he has not slept now in more than a day. PHYSICAL EXAMINATION: Reveals a wasted and somewhat uncomfortable gentleman sitting up in bed breathing high-flow nasal oxygen. Temperature is 36.7, blood pressure 112/78. His pulse is about 120 and regular, respiratory rate 28 or 30 at this point. He is saturating well but requiring high-flow nasal oxygen to do so. He has some temporal wasting. Oral cavity unremarkable. Lungs are essentially clear, no wheezing or rales are appreciated. His abdomen is increasingly distended and is now becoming quite tense though not apparently painful. He has no skin rash. LABORATORIES: Include white count 20,000 which is unchanged really since admission. His creatinine 0.47. Alk phos 444. Procalcitonin is consistently somewhere between 5 and 20 and I do not think there is any value in following this. It is likely all related to his liver METS as is his leukocytosis. Cultures include Staph which grew from two bronch washes on April 06 and . Otherwise we have negative cultures including negative cultures of his ascitic fluid. Our most recent chest x-ray was reviewed and it is from yesterday and it shows some if this persistent right-sided infiltrate of unknown significance. This is relatively unchanged. IMPRESSION: This patient continues to do surprisingly well considering the extreme circumstances under which he presented in which he required intubation. He is now a few days out from his initial cycle of chemotherapy, and we are hopeful that he will be able to receive additional chemo in the next eight days or so. Meanwhile he continues to be relatively stable and is receiving ertapenem for what may or may not have been a significant methicillin sensitive Staphylococcus aureus respiratory tract infection. RECOMMENDATIONS: 1. Will continue with ertapenem to complete a 10-day course. 2. Barring some additional developments will go ahead and stop the ertapenem at that time and observe off antibiotics.
[2017-04-18] MEDS ORDERED: Morphine ER 15 mg (MS Contin) Tablet PO SCH (09:25)
--- NOTE | 2017-04-18 09:36 | PCM.PNMED ---
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 He was treated with EKOS catheter directed thrombolytic therapy x 3 with no change in massive clot burden on repeat CTs. Heparin gtt was ineffective and was switched to Argatroban ggt. CT abdomen/pelvis on 04/11/2017 showed progression of the liver tumors and family decided to start FOLFOX on 04/13/2017 and completed the 1st cycle on 04/15/17. He was successfully extubated yesterday 04/16/17 and is currently on high-flow Oxygen. Hospital Day 15. No acute event overnight. Patient has remained relatively stable with SpO2 in the 95% on 30 high flow. Per nursing report, he continues to have issue with sleeping difficulty in spite of the Ativan and Dilaudid. Intra-abdominal pressure has increased to 25. This morning, the patient's father complains that the patient seems to be hallucinating and more confused than last night. He attributes this to medication reaction and would like to minimize the medication. Upon exam, patient mumbles incoherently, but is easily re-directed. He is able to speak in short sentences and follow simple commands. He is oriented to self, family, and place. He denies any pain complaint and is tolerating stim diet well. Exam Vital Signs Vital Sign - Last Date Time Temp Pulse Resp B/P Pulse Ox O2 Delivery O2 Flow Rate FiO2 04/18/17 08:00 36.7 111 28 124/73 95 high flow 30 04/18/17 04:39 30 Intake and Output 04/17/17 04/17/17 04/18/17 Cumulative From/Thru 15:00 23:00 07:00 04/03/17 07:34 - 04/18/17 05:59 Intake Total 1688 ml 1691 ml 38518 ml Output Total 1700 ml 1750 ml 73908 ml Balance -12 ml -59 ml 33632 ml Intake Oral 300 ml 280 ml 580 ml IV Total 590 ml 320 ml 01796 ml Tube Feeding 1407 ml TPN/PPN 798 ml 1091 ml 72468 ml Packed Cells 351 ml Tube Irrigant 480 ml Output Urine Total 1700 ml 1750 ml 63076 ml Gastric Drainage Total 1335 ml Drainage Total 61766 ml Other 1615 ml # Bowel Movements 2 0 4 Exam Gen: pale, cachetic young gentleman, lying comfortably in bed, mumbling incoherently, not in acute distress. HEENT: NCAT, mild conjunctival pallor, pink and dry mucosa. Cardio: Mild tachycardia, Regular rhythm with no murmurs rubs or gallops. Resp: tachypnea, lung is clear to auscultation anteriorly with some rales in the bilateral bases. Abdomen: moderately distended and firm to palpation, normoactive bowel sound, moderate tenderness to palpation. Extremities: Warm to the touch, mild pitting edema in the bilateral ankles, improved compared to prior exam. Skin: pale, dry and intact. No skin rash noted. Neuro: Slightly confused, but oriented to self and place. Sensation grossly intact to light touch. IVs and Medications Medications Reviewed: Medications were reviewed in detail Medications high risk medication include Fentanyl Lab and Diagnostics Result Diagram: 04/18/1734404/18/17344 Microbiology Bronchial washing grew MSSA 04/09 X-Rays, CTs and MRIs CT ANGIO CHEST PULMONARY EMBOLISM 1. Slight decrease in severe pulmonary embolic disease with resolution of the previously seen saddle embolus spanning the main pulmonary artery bifurcation. However, significant embolic burden remains bilaterally. 2. Improved aeration of the left lower lobe. Decreased right lower lobe pneumonia. 3. Moderate ascites and severe hepatic metastatic disease. 4. Healing left rib fractures. 5. Gastroesophageal reflux. Dictated by: Landon Noel M.D. on 04/11/2017 at 10:12 CT ABDOMEN AND PELVIS WITH CONTRAST 1. Interval increased amount of large abdominal and pelvic ascites, presumably from peritoneal carcinomatosis. 2. Numerous variably sized hepatic metastases again noted, most confluent in the left hepatic lobe. 3. 6.4 x 5.5 x 3.5 cm left pelvic cystic lesion appears to arise from the left seminal vesicle. 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 4. Small bibasilar mobile pleural effusions, with associated compressive atelectasis. Dictated by: Moisés Brasher M.D. on 04/11/2017 at 10:32 Chest x-ray Stable pulmonary venous engorgement and support devices. Dictated by: New Powers M.D. on 04/03/2017 at 11:01 CT angiogram 1. Multiple, bilateral large pulmonary emboli. 2. Flattening of the cardiac interventricular septum suggesting right heart strain. 3. Hepatic metastatic disease. 4. Findings telephoned to Dr. Nathan Paz on 04/03/17 at 0817 hrs. Dictated by: Louisa Jones MD, PhD on 04/03/2017 at 8:13 Chest x-ray 1. Endotracheal tube and nasogastric tube positioned as described. 2. Mild cardiomegaly and moderate vascular congestion. Dictated by: Tristin Mckenzie M.D. on 04/03/2017 at 9:55 Chest x-ray 1. Endotracheal tube is positioned at the thoracic inlet. 2. Mild cardiomegaly and vascular congestion is similar to the prior study. Dictated by: Tristin Mckenzie M.D. on 04/03/2017 at 10:03 US ABDOMEN IMPRESSION: 4 quadrant mild ascites noted, growing mass lesions throughout the liver parenchyma. Nonvisualization of the left kidney due to overlying bowel gas and inability of the patient to fully cooperate with positioning and breath holding. Dictated by: Donnie Harrington M.D. on 04/10/2017 CT ANGIO CHEST PULMONARY EMBOLISM IMPRESSION: 1. Slight decrease in severe pulmonary embolic disease with resolution of the previously seen saddle embolus spanning the main pulmonary artery bifurcation. However, significant embolic burden remains bilaterally. 2. Improved aeration of the left lower lobe. Decreased right lower lobe pneumonia. 3. Moderate ascites and severe hepatic metastatic disease. 4. Healing left rib fractures. 5. Gastroesophageal reflux. Dictated by: Landon Noel M.D. on 04/11/2017 CT ABDOMEN AND PELVIS WITH CONTRAST IMPRESSION: 1. Interval increased amount of large abdominal and pelvic ascites, presumably from peritoneal carcinomatosis. 2. Numerous variably sized hepatic metastases again noted, most confluent in the left hepatic lobe. 3. 6.4 x 5.5 x 3.5 cm left pelvic cystic lesion appears to arise from the left seminal vesicle. 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 4. Small bibasilar mobile pleural effusions, with associated compressive atelectasis. Dictated by: Moisés Brasher M.D. on 04/11/2017 X-RAY CHEST ONE VIEW, PORTABLE IMPRESSION: 1. Support tubes appear in place. PICC line appears to be in the atrium 2. Mild right lower lobe interstitial infiltrate. Persistent left lower lobe consolidation. Small left pleural effusion. Findings compatible with pneumonia/ aspiration. Dictated by: David Greer M.D. on 04/13/2017 X-RAY CHEST ONE VIEW, PORTABLE IMPRESSION: Stable chest. Dictated by: Paul Nieves M.D. on 04/14/2017 X-RAY CHEST ONE VIEW, PORTABLE IMPRESSION: 1. Asymmetric pulmonary edema with superimposed bibasilar pneumonia. Dictated by: Paul Nieves M.D. on 04/14/2017 X-RAY CHEST ONE VIEW, PORTABLE IMPRESSION: 1. Stable right basilar infiltrates. Improving left lower lobe volume loss. 2. Stable support devices. Dictated by: New Powers M.D. on 04/15/2017 X-RAY CHEST ONE VIEW, PORTABLE IMPRESSION: Bilateral pulmonary airspace opacities similar to prior examination suggesting bilateral aspiration versus pneumonia. Dictated by: Jak Ortiz RRA Interpreted: Paul Nieves MD on 04/16/2017 Cardiac Echo Impressions Interpretation Summary Severely dilated right ventricle with moderate to severely reduced systolic function. Thrombus is visualized in the right ventricle. There is a catheter seen in the right atrium. Comparison is made with the echocardiogram of 04/03/2017, right ventricle size has decreased slightly. Electronically signed by: Karishma Morrow on Reading Physician:04/05/2017 02:03 PM . Additional Diagnostics PROCEDURE: US ABDOMEN FINDINGS: Liver: Liver is enlarged in size and heterogeneous in echotexture with multiple hepatic mass lesions previously identified again seen, having enlarged in size from the comparison ultrasound 03/07/17 and the largest measures up to 5.5 x 5.0 x 4.3 cm. Gallbladder: The gallbladder watts just above the upper limits of normal at 3.1 mm, and appears to contain sludge. A small amount of adjacent free fluid can be seen. Biliary ducts: Intrahepatic bile ducts are non-dilated. Extrahepatic bile duct caliber measures 3.5 mm. Normal is 6-7 mm or less in diameter, or 10 mm or less post-cholecystectomy. Pancreas: Visualized portions of the pancreas are sonographically normal. Spleen: Spleen is normal in size and homogeneous in echotexture. Kidneys: The right kidney is normal in size and echotexture. Right kidney measures 16.3 cm long; left kidney could not be seen. No solid masses. Aorta: Visualized aorta is normal in caliber at less than 3 cm. Iliacs: Proximal common iliac arteries are normal in caliber at less than 2.5 cm. IVC: Intrahepatic inferior vena cava is patent. Miscellaneous: There is mild for quadrant abdominal free fluid. IMPRESSION: 4 quadrant mild ascites noted, growing mass lesions throughout the liver parenchyma. Nonvisualization of the left kidney due to overlying bowel gas and inability of the patient to fully cooperate with positioning and breath holding. Dictated by: Donnie Harrington M.D. 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 He is receiving Ertapenem for a MSSA pneumonia and as empiric coverage for intrabdominal sepsis. He began FOLFOX 04/13 and completed 1st cycle 04/15. #. Acute Delirium, new and active. - multifactorial, likely associated with mechanical ventilator and/or medications. - Will wean him off the Fentanyl and transition to MS contin 15mg PO BID for pain. He is otherwise not on any other sedation drips. - Switch the Olanzapine to Quetiapine 25mg BID. - No sign of new infection. Continue to follow clinically. #. Acute Hypoxemic respiratory failure, on mechanical ventilation for 14 days, extubated day 2, improved. - Likely is multifactorial with the pneumonia, pulmonary embolism, and mucous plugging. S/p bronchoscopy x2. - Extubated successfully on 04/16/2017, maintains O2 saturation with hi-flow NC. Will continue to wean off the O2 as tolerated. - Continue PT - Family has decided not to re-intubate in the event of recurrent respiratory distress. #. Sepsis due to left lower lobe MSSA pneumonia, new and improved. - Appears to be methicillin-sensitive Staphylococcus aureus, confirmed by bronch washing x2. - WBC trending down and no fever. - Appreciate Dr. Goldberg's input. - Continue empirical antibiotic with Ertapenem, which has good activity against MSSA and provides some broader spectrum coverage for aspiration type pneumonia. Day #9 on Ertapenem. Will continue for a total of 10 days per ID team. - Will stop following Procalcitonin, which would be elevated due to hepatic metastases. - No other apparent source of infection. The first ascitic fluid analysis did not meet the standard criteria for bacterial peritonitis. Culture shows no growth. #. Acute bilateral massive pulmonary embolism with obstructive shock, POA, active. - RV pressure overload on echo but no radiographic resolution of his extensive bilateral PE's despite EKOS and systemic anticoagulation with heparin and now argatroba. - Possible this is not all thrombosis but might have some degree of tumor emboli given extent of hepatic involvement. - Systemic thrombolysis not an option given his history of Gastric tumor and recent GI bleeds requiring transfusion. Surgical thrombectomy is also not a consideration given his grim primary diagnosis. - Continue with Argatroban drip and monitor PTT level. - The initial test ordered by Dr. Suazo showed that patient has antithrombin deficiency. Repeat Antithrombin III Antigen ordered. If it is positive, Pradaxa is likely the best anticoagulant as outpatient. #. Abdominal ascites, recurrent and active. - Likely a reflection of his elevated RV pressure and hypoalbuminemia along with his tumor involvement. - First paracentesis removed 1600ml on 04/10/17; subsequent paracenteses on 04/12 and 04/15 removed 6L of bile stained ascitic fluid . Intra-abdominal pressure is 25 today. - Studies of the ascitic fluid from the first paracentesis on 04/10/17 showed that the SAAG is 0.8, consistent with an exudative type ascites. - Will repeat paracentesis today with Albumin replacement. #. Electrolytes abnormalities, new and active. - Hypernatremia: Na level gradually trending up. Discussed with pharmacy about replacing the NS in his medications to D5W. Will also increase free water in his TPA - Hyperglycemia: multifactorial from TPN, Decadron and stress. Adjusted SQ sliding scale. Can add insulin to TPN if daily requirement excessive. #. Metastatic liver cancer due to poorly differentiated adenocarcinoma, active. - Metastatic HER-2 negative adenocarcinoma, likely gastric in origin. CT abd/ pelvis on 04/11/17 revealed numerous variably sized hepatic metastases, most confluent in the left hepatic lobe. - Chemotherapy per Oncology. The patient received one course of FOLFOX chemotherapy from April 13 through April 15, 2017. No acute toxicities identified. White cell count remains elevated. - Treatment would be largely palliative and fraught with multiple potential catastrophic complications. Family has been repeatedly informed of the significant risks for catastrophic complications for which there may be no effective treatment. In the event of a cardiac arrest, he is now DNAR and no reintubation. - Given concerns for active Staphylococcus aureus infection, have a low threshold for initiating growth factor support. - Await results of Peutz-Jeghers syndrome testing. - Taper off Fentanyl and start MS contin oral solution 15mg BID and Decadron for adjunctive pain treatment. Continue PRN IV Hydromorphone for breakthrough pain. Patient is not a good candidate for Fentanyl patch give his cachetic state. #. Liver failure, stable. - LFTs continue to be elevated, likely secondary to hepatic metastases. - Abdominal U/S and abdominal/pelvis CT showed growing mass lesions throughout the liver parenchyma. #. Solitary kidney, chronic. 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 For now renal fxn and UOP are adequate. Will continue to monitor. Patient is on PPO BID for GI prophylaxis. He is on Argatroban ggt for PE, which is therapeutic. Pain Evaluation: Adequate Pain Control GI Prophylaxis: Proton Pump Inhibitor VTE Prophylaxis: Other (Argatroban ggt) Resuscitation Status: DNR/DNI:Do Not Resuscitate/Intubate (max support but DNR) Attending Statement Patient was examined and discussed with Dr. Bourgeois. I have reviewed and agree with her assessment and plan. 50 minutes of critical care time exclusive of shared time and procedures. Mary Bourgeois DO Apr 18, 2017 09:36 Dony Vega MD Apr 21, 2017 07:17
--- NOTE | 2017-04-18 10:14 | NUR ---
NUTRITION FOLLOW-UP: ASSESS: 27 YO male with a recent diagnosis of metastatic gastric cancer with family history of Peutz-Jeghers syndrome admitted to CCU for bilateral DVT and sudden onset shortness of breath. Pt extubated 04/16. Pt now having bowel movements. TPN continues, phos low today but improved. Enteral feeding was discontinued due to high residuals. Pt received FOLFOX chemotherapy. Diet advanced to stimulation, no PO intake recorded yet. PMHx: Metastatic gastric cancer, upper GI bleed, liver biopsy, Peutz-Jeghers syndrome, LE DVT. DIET: Stimulation. No PO intake yet. ENTERAL FEEDING: OFF TPN: 300 g Dex, 120 g AA, 50 g lipids providing 2000 kcal, 120 g protein; 100% calorie, 100% protein needs. LABS: Reviewed. Na 152, BUN 50, Cr 0.47, Glu 167, Phos 2.4, T.bili 4.7, AST 114, ALT 84, Alk Phos 444, Alb 2.2 MEDICATIONS: Reviewed. Insulin, Fentanyl, Decadron. GI: 3 BM 04/17. SKIN: No issues reported. ANTHROPOMETRICS: Current Wt: 78.8 kg, BMI 19.6 kg/m2. Admit weight: 81.0, IBW: 100 kg (81% IBW) ESTIMATED NEEDS (CANCER): Calories: 7617-7352 kcal/day (25-30 kcal/kg BW) Protein: 80-120 g/day (1.0-1.5 g/kg BW) Fluid: Approx. 2425 mL (30mL/kg BW) NUTRITION DIAGNOSIS: 1) Inadequate oral intake related to altered GI function, as evidenced by NPO/vent status, enteral feeding on hold - PERSISTS. 2) Increased nutrient needs related to cancer, as evidenced by new gastric cancer w/ liver mets, 81% IBW - PERSISTS. INTERVENTION: 1) Continue current TPN as ordered. 2) If diet unable to advance past stimulation and electrolytes WNL, recommend increasing TPN to goal of 120 g AA, 350 g Dex, 60 g lipids to provide 2270 kcal, 120 g protein; meeting 100% calorie/protein needs. 3) Diet advancement per speech therapy. MONITOR/EVALUATE: PO intake, diet tolerance/advance, TPN tolerance/advance, labs, weight, POC, GI/nutrition status. Follow per high nutrition risk guidelines.
[2017-04-18] MEDS: ARGATROBAN IV SCH ×2 (10:31)
[2017-04-18] MEDS: SODIUM CHLORIDE IV SCH ×2 (10:31)
[2017-04-18] MEDS: Morphine 2 mg/mL 5 mL Oral Solution PO SCH ×3 (10:47→20:28)
[2017-04-18] MEDS ORDERED: Albumin 25% 50 GM in IV Premix 1 EACH IV ONE (12:30)
--- NOTE | 2017-04-18 12:34 | PCM.PROC ---
Procedure Note Date of Service: Apr 18, 2017 Pre Procedure Diagnosis: Tense malignant ascites. Post Procedure Diagnosis: Tense malignant ascites. Procedure: Therapeutic large-volume paracentesis. Provider and Robotic Welder: Maya Narvaez M.D. (Helen) Indication for Procedure: Abdominal distention and pain with elevated intra-abdominal pressure of 25. Procedural Analgesia: 1% Lidocaine Procedure Details: After verbal informed consent from the patient, ultrasound- guided therapeutic paracentesis was performed. An area in the right lower quadrant where prior paracenteses have been performed was examined with ultrasound and found to have a very large echo-free pocket of fluid. This area was heavily scrubbed with chlorhexidine solution for greater than 1 minute and then sterilely draped. Using sterile technique and full barrier precaution, a 5-Bahamian paracentesis catheter was advanced over needle through the abdominal wall under direct ultrasound guidance. Fluid aspirated easily. The catheter was advanced off the needle and secured. This was attached to a closed suction system and 5 L of thin, relatively clear light yellow fluid were removed under gentle regulated wall suction. The patient appeared to tolerate the procedure well. At completion of the procedure, the catheter was withdrawn and a sterile dressing applied. There was no apparent bleeding or ongoing fluid leak from the puncture site of the abdominal wall. Dr. Vega was present for the entire procedure. Specimen: None Post Procedure Plan: Will administer 50gms of 25% Albumin. Will continue to follow clinically and repeat therapeutic large-volume paracentesis as needed. Mary Bourgeois DO Apr 18, 2017 12:34
[2017-04-18] MEDS: ERTAPENEM IV SCH (13:09)
[2017-04-18] MEDS: DEXTROSE 5% IV SCH (13:09)
--- NOTE | 2017-04-18 13:55 | PCM.PHAPRO ---
Progress TPN TPN #9 I. Fluid/HD Weight, BP, stable, sinus tach likely associated with anxiety to some degree. I/O generally balanced however intermittent paracentesis confounds this picture. Hypernatremia with am Na 151, estimated FWD ~ 1.5 liters. p/ 2500mL/d TPN w/o Na (~ 100 ml/hr free water) II. Chem Lytes generally WNL, phosphate being repleted. Hepatic indices unchanged, perhaps shouldering. TG to be checked in AM III. Glucose Improving. Received 4 units SQ since last TPN hung. p/ Increase insulin in TPN to 14 units, hoping to avoid unnecessary interventions IV. Macronutrients At goal PARENTERAL NUTRITION ORDERS 05 19- Standard Hang Time: 2100 Substrates Total kcal: 2000 AMINO ACIDS 120 g DEXTROSE 300 g Total Volume (mL): 2500 LIPIDS 50 g Sterile Water for Injection mL To Infuse Over (hrs): 24 Total Volume 2500 mL At at a rate of (mL/hr): 104 Additives Sodium Chloride 0 mEq "typical" daily requirements Sodium Acetate 0 mEq Sodium 50-120mEq Potassium Chloride 40 mEq Potassium 60-120mEq Potassium Phosphate 40 mEq Phosphate 20-40mEq Calcium Gluconate 0 mEq Magnesium 8-32mEq Magnesium Sulfate 12 mEq Calcium 9-22mEq Acetate* 80-120mEq Chloride* 80-120mEq Regular Insulin 14 units *Depending on acid-base status Famotidine mg Multivitamins 1 std dose Insulin Regimen Trace Elements 1 std dose none Thiamine mg Regular Low Intensity Subcut Folic Acid mg Regular Medium Intensity Subcut Ascorbic Acid mg Regular High Intensity Subcut Regular Insulin Infusion Other: Special Instructions: To be infused via central line only. For delay or inturruption of TPN contact the pharmacist for alternative replacement solution. Signature Date: DREA PELAYO [address] S Pharm D Apr 18, 2017 13:55
--- NOTE | 2017-04-18 14:11 | ABG ---
DateTimeAnalyzed 13:59:00 -_ pH ____7.423 - 7.320 7.420 pCO2 ___31.0__ -mmHg 41.0 51.0 pO2 ___32.3__ -mmHg 24.0 40.0 HCO3- ___19.9__ -mmol/L ABE ___-3.5__ -mmol/L tHb ____7.9__ -g/dL 12.0 18.0 O2Hb ___57.6__ -% COHb ____1.4__ -% 0.0 1.5 MetHb ____0.8__ -% 0.4 1.5 sO2 ___58.9__ -% FIO2 ___45.0__ -% Drawn By NSG - Date/Time Notified____ 14:10:00 -_ Spontaneous_RR ___31.0__ -b/min Liter_Flow ____6.0__ -L/min Oxygen Device 1 __OXYMASK - Notified By RC - Notified Whom YOANNA FINE RN -___ B 758 -mmHg tO2 ____6.4__ -Vol% Yaakov test N/A -
--- NOTE | 2017-04-18 14:35 | PCM.PALLBR ---
Palliative Care Recommendation Summary: DISEASE PROGRESSION/EVIDENCE OF DECLINE: rapidly progressive gastric adenoCA SYMPTOM BURDEN: overwhelming-critically ill FAMILY GOALS: 1. Family wants to know all facts about his illness and prognosis to better guide their decisions. After detailed discussion with oncologist/pulmonary repossessor and [facility] on 04/12, family elected to proceed with chemotherapy now, rather than w/d of care. 2. Family describes pt as "fighter", "survivor" but also not likely to be comfortable with debility 3. Would comfort care be more important than being awake and alert? Family has a strong goal to get him off vent so he can verbalize his opinion and also so they can communicate their love. Family focused on getting him off vent/off sedation. PALLIATIVE CARE COUNSELIN. on 04/12 reviewed need for sedation on vent. 2. Mason of surrogacy/decision making 3. Challenges of prognostication--family with many questions re: "what if" 4. Recognizing terminal nature of his malignancy--Dr. Suazo and Dr. Vega reiterated this. 5. Prognosis: Dr. Suazo indicated treatment likely to buy some time but in matter of months DPOA/Advanced Directives/POLST: Reviewed code status and after conference family agreed to DNR but with maintenance of aggressive interventions up to that level. On 04/13, Pulmonary Team asked [facility] to advise on use of dexamethasone and/ or any other non-opiate medications that can be used to help pt with pain and being more awake as they get ready to try to extubate him. Recommendations: 1. Following chemotherapy, give 8mg dexamethasone IV q AM. Goal: to alleviate liver capsule tension, edema of throat/tracheal area. Help with wakefulness in preparation for extubation. Watch for increased agitation/hallucination due to steroids. 2. Consider ketamine, starting dose 5-10mg po QID. Monitor BPs, should be normal range before starting ketamine. Record baseline pain score, sedation rating, blood pressure, heart rate and respiratory rate before the first dose of ketamine is given. Record pain score, sedation rating, blood pressure, heart rate and respiratory rate one hour after the first dose (or any dose increase) of ketamine is given then every 2 hours x 2 and then every 4 hours until stable dose is achieved. Contact the prescriber if blood pressure increases to 30 mmHg above baseline, if pulse increases to 20 bpm above baseline or rises above 100 bpm, if respiratory rate decreases to less than 10 breaths per minute or if excessive drowsiness develops. Ketamine may restore a patients opioid sensitivity and lead to opioid toxicity (respiratory depression). The palliative care provider may choose to reduce the opioid dose and/or change from long-acting to short-acting dosage forms when ketamine is started. Common side effect is dysphoria/hallucinations. Use low dose haldol to manage. Additional Medical Diagnoses with primary management by Hospitalist team include : #. Acute Hypoxemic respiratory failure, on mechanical ventilation since April 03 active. - Continuous sedation with fentanyl, precedex and propofol with daily awakening trial and SBT. We need to keep him sedated so he can tolerate the ventilation. #. Sepsis due to left lower lobe MSSA pneumonia, new and improved. - Appears to be methicillin-sensitive Staphylococcus aureus, confirmed by bronch washing x2. - Per Dr. Goldberg's recommendations, will continue with empirical antibiotic with Ertapenem, which has good activity against MSSA and provides some broader spectrum coverage for aspiration type pneumonia. Day #4 on Ertapenem. - No other apparent source of infection. #. Acute bilateral massive pulmonary embolism with obstructive shock, POA, active. - Systemic thrombolysis not an option given his history of Gastric tumor and recent GI bleeds requiring transfusion. Surgical thrombectomy is also not a consideration given his grim primary diagnosis. - Continue with Argatroban drip and monitor PTT level. #. Abdominal ascites, new and active. - Likely a reflection of his elevated RV pressure and hypoalbuminemia along with his tumor involvement. - First paracentesis removed 1600ml on 04/10/17 and second one removed 6500ml on 04/12/17. Intra-abdominal pressure is 14 today. - 50gms Albumin replacement given yesterday and 25gms last night to support BP after large volume paracentesis. Continue to monitor BP. - Studies of the ascitic fluid from the first paracentesis on 04/10/17 showed that the SAAG is 0.8, consistent with an exudative type ascites. - Will consider repeating therapeutic large volume paracentesis repeated as needed #. Hyperbilirubinemia, new and active. - LFTs continue to be elevated, likely secondary to hepatic metastases. - Abdominal U/S and abdominal/pelvis CT showed growing mass lesions throughout the liver parenchyma. #. Metastatic liver cancer due to poorly differentiated adenocarcinoma, active. - CT abd/pelvis on 04/11/17 revealed numerous variably sized hepatic metastases, most confluent in the left hepatic lobe. - Given the rapid progression of his adenocarcinoma, it is reasonable to proceed with chemotherapy. His family has decided to begin chemotherapy and have been full and repeatedly informed of the significant risks for catastrophic complications for which there may be no effective treatment. In the event of a cardiac arrest, he is now DNAR. - Starting FOLFOX today per Oncology. Treatment would be largely palliative and fraught with multiple potential catastrophic complications. Will continue to monitor him closely on the ventilator. - We discussed with Palliative Care about adjunct pain medication to the opioids , including Decadron. Patient will get 10mg of Decadron as a part of his chemo antiemetics today and we will monitor his symptoms. Will consider daily doses of Decadron if he tolerates it well. Patient is on PPO BID for GI prophylaxis. He is on Argatroban ggt for PE, which is therapeutic. Problems: End of Life Preferences DNR-- based on discussion with family. --severity of illness Goals of Care Decision to give chemo a try/continue aggressive intervention Resuscitation Status Resuscitation Status: DNR/DNI:Do Not Resuscitate/Intubate (max support but DNR) Total time [ ] minutes; >50% face to face with patient and/or family, providing counselling regarding plans and recommendations, and in care coordination with his/her medical teams. I also spent an additional [ ] minutes counseling for advanced care planning with the patient/the patients family/the surrogate decision maker. Palliative Brief Note Date of Service Apr 18, 2017 . Course of care reviewed. Active medical/oncologic treatments continuing Palliative medicine will sign off at this time; please contact us if we may be of further assistance Ryan Simental MD Apr 18, 2017 14:35
--- NOTE | 2017-04-18 16:44 | NUR ---
Social Work: Continued Discharge Planning/Multidisciplinary Rounds D: Pt discussed in multidisciplinary rounds. The patient was able to be extubated and is improving more than was initially expected. The patient is still clinically unstable and being followed closely by oncology, infectious disease and the CCU team. The patient has completed his course of chemo therapy and oncology is following daily to determine pt's care plan for his gastric cancer. Per palliative care and oncology providers notes, chemo therapy is palliative in nature and patient appears to be comfortable at this point; further chemo plans are yet to be determined. Pt is DNR/DNI however family wishes to continue pursing aggressive treatment at this time. Case management continues to follow patient's progress daily and will be of support for discharge planning purposes if/when requested by providers. A: Pt who remains in CCU, extubated. P: Evolving; Case Management to continue to follow very closely to assess for needs. MILAGROS Magana
--- NOTE | 2017-04-18 16:59 | DRSVH ---
PROCEDURE: X-RAY CHEST ONE VIEW, PORTABLE ([id number]) INDICATIONS: Tachypnea TECHNIQUE: One view of the chest was acquired. COMPARISON: [facility], CR, XR CHEST 1VW (PORTABLE), 04/17/2017, 5:57. FINDINGS: Surgical changes and devices: Stable positioning of left PICC. Lungs and pleura: Trace pleural effusions. No pneumothorax. Persistent mid lung and basilar patchy air space opacities. Mediastinum: Mediastinal contours appear normal. Heart size is normal. Bones and chest wall: No suspicious bony lesions. Overlying soft tissues appear unremarkable. IMPRESSION: Bilateral pneumonia not significantly changed. Dictated by: Jak JOHNSON Interpreted: Donnie Harrington MD on 04/18/2017 at 14:44 Approved by: Donnie Harrington M.D. on 04/18/2017 at 16:56
--- NOTE | 2017-04-18 18:07 | PCM.PNMED ---
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 Has had trial of EKOS 04/03 but repeat CTPA 04/05showed no resolution of his bilat PE's. Had repeat CTPA and CT of Abd/Pelvis 04/11 which was personally reviewed showed NO resolution of extensive thrombus in both main Pulmonary arteries and nearly all branches, especially those in the RLL and RML. In addition there appears to be progressive disease in his liver with near total replacement of the left lobe with masses. There was increased ascites and evidence for peritioneal carcinomatosis. On 04/11, I spoke at length with Curtis's mother, sister, and father about the results of the CT's and the events of the last 24 hours. We discussed possible options for going forward and I essentially presented 3 different paths. First, I offered that we could continue fully aggressive support, as we are currently, with the expectation that he will eventually of his rapidly growing tumor, possibly within days or a couple weeks. The next option centers on administration of chemotherapy directed at his disseminated tumor along with a jermaine description of the multiple catastrophic complications that could occur as a result and, for which, we would have no effective treatment. These include gastric rupture, hepatic failure, severe GI hemorrhage, tumor lysis, renal failure, ARDS, sepsis, etc. Finally, we discussed withdrawal of Curtis's ventilator and shifting focus to comfort care with the expectation that he would within hours to a few days. I've spoken with Curtis's oncologist, Dr. Suazo, who offered to meet with me and the family later today to give them a full understanding of the choices and likely outcomes. Palliative Care kindly agreed to take part in the discussion as well. I also offered to seek transfer of Curtis to a tertiary center such as if the family wishes to explore that however I told them that I doubted that could offer any additional options that might alter the final outcome. On 04/12, we had another family meeting to discuss prognosis and formulate a plan. Dr. Suazo, Dr. Calvo, Dr. Bourgeois and I met with the family along with nursing staff. We again presented the above 3 options and answered all questions. In addition, we asked the family to consider whether it was appropriate for Curtis to continue on Full Code status. After several hours deliberation, the family reported to me, Dr. Calvo, Dr. Bourgeois and staff that they had decided that 1) they would like for Curtis to begin chemo and 2) his code status should change to DNAR. We repeated the large volume therapeutic paracentesis and removed 6 L thin bile stained ascitic fluid without complications. He completed the first cycle of FOLFOX 04/15 Interval History Successfully extubated 04/16 and over night has tolerated weaning of his high flow O2 from FiO2 0.6 to current simple nasal cannula. Had repeat large volume paracentesis to address his recurrent tense ascites Throughout the day he has become less vocal and interactive. He was less able to cooperate with PT and is not consistently following even simple commands. He appears calm, sitting with his eyes open and scanning the room but not speaking even when spoken to. Exam Vital Signs Vital Sign - Last Date Time Temp Pulse Resp B/P Pulse Ox O2 Delivery O2 Flow Rate FiO2 04/18/17 16:00 36.9 130 41 118/72 97 Nasal Cannula 6.00 04/18/17 10:15 30 Intake and Output 04/17/17 04/17/17 04/18/17 Cumulative From/Thru 15:00 23:00 07:00 04/03/17 07:34 - 04/18/17 05:59 Intake Total 1688 ml 1691 ml 66304 ml Output Total 1700 ml 1750 ml 71691 ml Balance -12 ml -59 ml 31090 ml Intake Oral 300 ml 280 ml 580 ml IV Total 590 ml 320 ml 00291 ml Tube Feeding 1407 ml TPN/PPN 798 ml 1091 ml 71011 ml Packed Cells 351 ml Tube Irrigant 480 ml Output Urine Total 1700 ml 1750 ml 39040 ml Gastric Drainage Total 1335 ml Drainage Total 11366 ml Other 1615 ml # Bowel Movements 2 0 4 Exam Pale cachectic young man who appears awake but is not interactive Neuro Generally weak, no tremors, clonus Gaze appears conjugate, Pupils dilated to 12 mm bilaterally with slow reactivity. Lungs Decreased breath sounds at both bases with crackles, NO wheezes CV RRR, no m/g/r Abd Softer after paracentesis, normal BTs, firm midepigastric mass Ext Decreased edema both feet, all extremities warm IVs and Medications Medications Reviewed: Medications were reviewed in detail Lab and Diagnostics Personally reviewed in detail Result Diagram: 04/18/17 0345 04/18/17 0345 Microbiology Bronchial washing grew MSSA 04/09 X-Rays, CTs and MRIs CT ANGIO CHEST PULMONARY EMBOLISM 1. Slight decrease in severe pulmonary embolic disease with resolution of the previously seen saddle embolus spanning the main pulmonary artery bifurcation. However, significant embolic burden remains bilaterally. 2. Improved aeration of the left lower lobe. Decreased right lower lobe pneumonia. 3. Moderate ascites and severe hepatic metastatic disease. 4. Healing left rib fractures. 5. Gastroesophageal reflux. Dictated by: Landon Noel M.D. on 04/11/2017 at 10:12 CT ABDOMEN AND PELVIS WITH CONTRAST 1. Interval increased amount of large abdominal and pelvic ascites, presumably from peritoneal carcinomatosis. 2. Numerous variably sized hepatic metastases again noted, most confluent in the left hepatic lobe. 3. 6.4 x 5.5 x 3.5 cm left pelvic cystic lesion appears to arise from the left seminal vesicle. 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 4. Small bibasilar mobile pleural effusions, with associated compressive atelectasis. Dictated by: Moisés Brasher M.D. on 04/11/2017 at 10:32 Chest x-ray Stable pulmonary venous engorgement and support devices. Dictated by: New Powers M.D. on 04/03/2017 at 11:01 CT angiogram 1. Multiple, bilateral large pulmonary emboli. 2. Flattening of the cardiac interventricular septum suggesting right heart strain. 3. Hepatic metastatic disease. 4. Findings telephoned to Dr. Nathan Paz on 04/03/17 at 0817 hrs. Dictated by: Louisa Jones MD, PhD on 04/03/2017 at 8:13 Chest x-ray 1. Endotracheal tube and nasogastric tube positioned as described. 2. Mild cardiomegaly and moderate vascular congestion. Dictated by: Tristin Mckenzie M.D. on 04/03/2017 at 9:55 Chest x-ray 1. Endotracheal tube is positioned at the thoracic inlet. 2. Mild cardiomegaly and vascular congestion is similar to the prior study. Dictated by: Tristin Mckenzie M.D. on 04/03/2017 at 10:03 US ABDOMEN IMPRESSION: 4 quadrant mild ascites noted, growing mass lesions throughout the liver parenchyma. Nonvisualization of the left kidney due to overlying bowel gas and inability of the patient to fully cooperate with positioning and breath holding. Dictated by: Donnie Harrington M.D. on 04/10/2017 CT ANGIO CHEST PULMONARY EMBOLISM IMPRESSION: 1. Slight decrease in severe pulmonary embolic disease with resolution of the previously seen saddle embolus spanning the main pulmonary artery bifurcation. However, significant embolic burden remains bilaterally. 2. Improved aeration of the left lower lobe. Decreased right lower lobe pneumonia. 3. Moderate ascites and severe hepatic metastatic disease. 4. Healing left rib fractures. 5. Gastroesophageal reflux. Dictated by: Landon Noel M.D. on 04/11/2017 CT ABDOMEN AND PELVIS WITH CONTRAST IMPRESSION: 1. Interval increased amount of large abdominal and pelvic ascites, presumably from peritoneal carcinomatosis. 2. Numerous variably sized hepatic metastases again noted, most confluent in the left hepatic lobe. 3. 6.4 x 5.5 x 3.5 cm left pelvic cystic lesion appears to arise from the left seminal vesicle. 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 4. Small bibasilar mobile pleural effusions, with associated compressive atelectasis. Dictated by: Moisés Brasher M.D. on 04/11/2017 X-RAY CHEST ONE VIEW, PORTABLE IMPRESSION: 1. Support tubes appear in place. PICC line appears to be in the atrium 2. Mild right lower lobe interstitial infiltrate. Persistent left lower lobe consolidation. Small left pleural effusion. Findings compatible with pneumonia/ aspiration. Dictated by: David Greer M.D. on 04/13/2017 X-RAY CHEST ONE VIEW, PORTABLE IMPRESSION: Stable chest. Dictated by: Paul Nieves M.D. on 04/14/2017 X-RAY CHEST ONE VIEW, PORTABLE IMPRESSION: 1. Asymmetric pulmonary edema with superimposed bibasilar pneumonia. Dictated by: Paul Nieves M.D. on 04/14/2017 X-RAY CHEST ONE VIEW, PORTABLE IMPRESSION: 1. Stable right basilar infiltrates. Improving left lower lobe volume loss. 2. Stable support devices. Dictated by: New Powers M.D. on 04/15/2017 X-RAY CHEST ONE VIEW, PORTABLE IMPRESSION: Bilateral pulmonary airspace opacities similar to prior examination suggesting bilateral aspiration versus pneumonia. Dictated by: Jak Ortiz RRA Interpreted: Paul Nieves MD on 04/16/2017 Cardiac Echo Impressions Interpretation Summary Severely dilated right ventricle with moderate to severely reduced systolic function. Thrombus is visualized in the right ventricle. There is a catheter seen in the right atrium. Comparison is made with the echocardiogram of 04/03/2017, right ventricle size has decreased slightly. Electronically signed by: Karishma Morrow on Reading Physician:04/05/2017 02:03 PM . Additional Diagnostics PROCEDURE: US ABDOMEN FINDINGS: Liver: Liver is enlarged in size and heterogeneous in echotexture with multiple hepatic mass lesions previously identified again seen, having enlarged in size from the comparison ultrasound 03/07/17 and the largest measures up to 5.5 x 5.0 x 4.3 cm. Gallbladder: The gallbladder watts just above the upper limits of normal at 3.1 mm, and appears to contain sludge. A small amount of adjacent free fluid can be seen. Biliary ducts: Intrahepatic bile ducts are non-dilated. Extrahepatic bile duct caliber measures 3.5 mm. Normal is 6-7 mm or less in diameter, or 10 mm or less post-cholecystectomy. Pancreas: Visualized portions of the pancreas are sonographically normal. Spleen: Spleen is normal in size and homogeneous in echotexture. Kidneys: The right kidney is normal in size and echotexture. Right kidney measures 16.3 cm long; left kidney could not be seen. No solid masses. Aorta: Visualized aorta is normal in caliber at less than 3 cm. Iliacs: Proximal common iliac arteries are normal in caliber at less than 2.5 cm. IVC: Intrahepatic inferior vena cava is patent. Miscellaneous: There is mild for quadrant abdominal free fluid. IMPRESSION: 4 quadrant mild ascites noted, growing mass lesions throughout the liver parenchyma. Nonvisualization of the left kidney due to overlying bowel gas and inability of the patient to fully cooperate with positioning and breath holding. Dictated by: Donnei Harrington M.D. 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 He is receiving Ertapenem for a MSSA pneumonia and as empiric coverage for intrabdominal sepsis. He began FOLFOX 04/13 and completed 1st cycle 04/15. IMP Resp failure Multifactorial with massive PE, LLL PNA and marked abdominal distension all contributing. There was NO radiographic resolution of his extensive bilateral PE's despite EKOS and systemic anticoagulation with heparin and argatroban now. His tense ascites has been drained x4 but is anticipated to reaccumulate, hopefully more slowly. His FiO2 has remained stable and he has tolerated transition to simple NC. He is now extubated but very weak. Day #9 empiric ertapenem for LLL PNA. CXR is table with retrocardiac air bronchograms and RLL streaky infiltrate. PE Bilat Massive PE. Had RV pressure overload on echo but no radiographic improvement after EKOS and anticoagulation on followup CTs. Possible that all material in pulmonary circulation is not thrombosis but instead some degree of tumor emboli given extent of hepatic involvement. He is undoubtably thrombophilic due to his advanced gastric cancer. Systemic thrombolysis, even at reduced dose not a safe option given his history of Gastric tumor and recent GI bleeds requiring transfusion. An attempt at catheter directed therapy with EKOS did not succeed and surgical thrombectomy is not a consideration given his primary diagnosis and exceeding grim prognosis based on that. Remains therapeutic on Argatroban gtt. detention anticoagulation in patients with solid tumor can be difficult with high rate of failure for coumadin. We are rechecking his ATIII level to see if LMWH might be an option but a NOAC such as dabigatran might be best. Confusion, lethargy He is not interactive and appears disassociated He has mydriasis but this might represent opiate withdrawal as he was on large doses of continuous infusion fentanyl for nearly 2 weeks. He seemed to worsen after receiving a dose of Seroguel which raises the possibility of serotonin syndrome which would explain his dilated pupils but he has no other findings we would expect such as rigidity and clonus. PRES has been reported a complication of many types of chemotherapy including oxiplatin but would require a MRI for diagnosis. With his liver disease he could be hyperammonemic and I will check his ammonia level. His neuro exam is entirely non focal and non-lateralizing but some has speculated about intracerebral bleeding in this patient on Argatroban. I think this is unlikely given his appearance and he would not tolerate cessation of anticoagulation or be a candidate for craniotomy even if he were proven to have ICH. Could have a new CVA due to paradoxical mechanism given his massive PE and elevated PA pressures. Gastric CA HER 2 negative and he has completed cycle of FOLFOX with dose reduction. His potassium, uric acid and phosphorus are stable or improved. TPN has been adjusted. His family decided to begin chemotherapy and have been fully and repeatedly informed of the significant risks for catastrophic complications for which there may be no effective treatment. In the event of a cardiac arrest , he is now DNAR / DNI and this was reaffirmed with his family on 04/16. Will try to cautiously introduce oral intake now that he has had some BMs. Ascites A reflection of his elevated RV pressure and hypoalbuminemia along with direct tumor involvement. Improved after 6 L removed 04/12 and 04/15 and today. Given total 50 gms albumin following the last procedure. Hyperglycemia TPN, Decadron and stress all contribute. Adjusted SQ sliding scale, Can add insulin to TPN if daily requirement excessive. 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 For now renal fxn and UOP are adequate and there is no indication for renal replacement. Bang Mathis Documented family history and almost certainly the cause of his advanced gastric adenocarcinoma REC FOLFOX per Oncology, Filgrastim per Oncology once chemo completed if WBC dips. serial metabolic labs Hold all psychoactive meds Ammonia level Neuroimaging if he continues to deteriorate Abx per ID Repeat therapeutic large volume paracentesis repeated as needed Decadron for adjunctive pain treatment TPN Argatroban GI prophylaxis DNAR / DNI Pain Evaluation: Adequate Pain Control GI Prophylaxis: Proton Pump Inhibitor VTE Prophylaxis: Other (Argatroban ggt) Resuscitation Status: DNR/DNI:Do Not Resuscitate/Intubate (max support but DNR) Time spent 55 minutes critical care exclusive of shared time and procedures Dony Vega MD Apr 18, 2017 18:07 - Apparently has unilateral renal agenesis on the left which may complicate his metabolic management. For now renal fxn and UOP are adequate. Will continue to monitor. Patient is on PPO BID for GI prophylaxis. He is on Argatroban ggt for PE, which is therapeutic. GI Prophylaxis: Proton Pump Inhibitor VTE Prophylaxis: Other (Argatroban ggt) Resuscitation Status: DNR/DNI:Do Not Resuscitate/Intubate (max support but DNR) Dony Vega MD Apr 18, 2017 18:07
--- NOTE | 2017-04-18 18:30 | PCM.PNMED ---
Subjective Date of Service Apr 18, 2017 Subjective Repeat large volume paracentesis today with 5 L taken off. Throughout the day today his level of consciousness has decreased her no longer able to follow simple commands or answer questions appropriately. He is sitting up in bed and able to focus on the speaker in the room though unable to participate in any meaningful manner conversation. Exam Vital Signs Vital Sign - Last Date Time Temp Pulse Resp B/P Pulse Ox O2 Delivery O2 Flow Rate FiO2 04/18/17 16:00 36.9 130 41 118/72 97 Nasal Cannula 6.00 04/18/17 10:15 30 Intake and Output 04/17/17 04/17/17 04/18/17 Cumulative From/Thru 15:00 23:00 07:00 04/03/17 07:34 - 04/18/17 05:59 Intake Total 1688 ml 1691 ml 71666 ml Output Total 1700 ml 1750 ml 01947 ml Balance -12 ml -59 ml 39689 ml Intake Oral 300 ml 280 ml 580 ml IV Total 590 ml 320 ml 38444 ml Tube Feeding 1407 ml TPN/PPN 798 ml 1091 ml 23159 ml Packed Cells 351 ml Tube Irrigant 480 ml Output Urine Total 1700 ml 1750 ml 15713 ml Gastric Drainage Total 1335 ml Drainage Total 85002 ml Other 1615 ml # Bowel Movements 2 0 4 Exam General: Awake, sitting up in hospital bed in no acute distress, thin and frail appearing. Not appropriately interactive HEENT: Normocephalic, atraumatic. Neck: Supple with full range of motion. Cardiovascular: Regular rate and rhythm with no murmurs Pulmonary: Bilateral expiratory rales. Normal respiratory effort with no use of accessory muscles. Abdomen: Firm to palpation, mildly distended. No grimace to palpation Extremities: Bilateral lower extremity pitting edema to mid tibial area. Warm to palpation. Neurological: Cranial nerves grossly intact. Psychiatric: A and O0 out of 4 though able to track movement and focus on speaker of. Lab and Diagnostics Result Diagram: 04/18/1734404/18/17344 Microbiology Bronchial washing grew MSSA 04/09 X-Rays, CTs and MRIs CT ANGIO CHEST PULMONARY EMBOLISM 1. Slight decrease in severe pulmonary embolic disease with resolution of the previously seen saddle embolus spanning the main pulmonary artery bifurcation. However, significant embolic burden remains bilaterally. 2. Improved aeration of the left lower lobe. Decreased right lower lobe pneumonia. 3. Moderate ascites and severe hepatic metastatic disease. 4. Healing left rib fractures. 5. Gastroesophageal reflux. Dictated by: Landon Noel M.D. on 04/11/2017 at 10:12 CT ABDOMEN AND PELVIS WITH CONTRAST 1. Interval increased amount of large abdominal and pelvic ascites, presumably from peritoneal carcinomatosis. 2. Numerous variably sized hepatic metastases again noted, most confluent in the left hepatic lobe. 3. 6.4 x 5.5 x 3.5 cm left pelvic cystic lesion appears to arise from the left seminal vesicle. 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 4. Small bibasilar mobile pleural effusions, with associated compressive atelectasis. Dictated by: Moisés Brasher M.D. on 04/11/2017 at 10:32 Chest x-ray Stable pulmonary venous engorgement and support devices. Dictated by: New Powers M.D. on 04/03/2017 at 11:01 CT angiogram 1. Multiple, bilateral large pulmonary emboli. 2. Flattening of the cardiac interventricular septum suggesting right heart strain. 3. Hepatic metastatic disease. 4. Findings telephoned to Dr. Nathan Paz on 04/03/17 at 0817 hrs. Dictated by: Louisa Jones MD, PhD on 04/03/2017 at 8:13 Chest x-ray 1. Endotracheal tube and nasogastric tube positioned as described. 2. Mild cardiomegaly and moderate vascular congestion. Dictated by: Tristin Mckenzie M.D. on 04/03/2017 at 9:55 Chest x-ray 1. Endotracheal tube is positioned at the thoracic inlet. 2. Mild cardiomegaly and vascular congestion is similar to the prior study. Dictated by: Tristin Mckenzie M.D. on 04/03/2017 at 10:03 US ABDOMEN IMPRESSION: 4 quadrant mild ascites noted, growing mass lesions throughout the liver parenchyma. Nonvisualization of the left kidney due to overlying bowel gas and inability of the patient to fully cooperate with positioning and breath holding. Dictated by: Donnie Harrington M.D. on 04/10/2017 CT ANGIO CHEST PULMONARY EMBOLISM IMPRESSION: 1. Slight decrease in severe pulmonary embolic disease with resolution of the previously seen saddle embolus spanning the main pulmonary artery bifurcation. However, significant embolic burden remains bilaterally. 2. Improved aeration of the left lower lobe. Decreased right lower lobe pneumonia. 3. Moderate ascites and severe hepatic metastatic disease. 4. Healing left rib fractures. 5. Gastroesophageal reflux. Dictated by: Landon Noel M.D. on 04/11/2017 CT ABDOMEN AND PELVIS WITH CONTRAST IMPRESSION: 1. Interval increased amount of large abdominal and pelvic ascites, presumably from peritoneal carcinomatosis. 2. Numerous variably sized hepatic metastases again noted, most confluent in the left hepatic lobe. 3. 6.4 x 5.5 x 3.5 cm left pelvic cystic lesion appears to arise from the left seminal vesicle. 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 4. Small bibasilar mobile pleural effusions, with associated compressive atelectasis. Dictated by: Moisés Brasher M.D. on 04/11/2017 X-RAY CHEST ONE VIEW, PORTABLE IMPRESSION: 1. Support tubes appear in place. PICC line appears to be in the atrium 2. Mild right lower lobe interstitial infiltrate. Persistent left lower lobe consolidation. Small left pleural effusion. Findings compatible with pneumonia/ aspiration. Dictated by: David Greer M.D. on 04/13/2017 X-RAY CHEST ONE VIEW, PORTABLE IMPRESSION: Stable chest. Dictated by: Paul Nieves M.D. on 04/14/2017 X-RAY CHEST ONE VIEW, PORTABLE IMPRESSION: 1. Asymmetric pulmonary edema with superimposed bibasilar pneumonia. Dictated by: Paul Nieves M.D. on 04/14/2017 X-RAY CHEST ONE VIEW, PORTABLE IMPRESSION: 1. Stable right basilar infiltrates. Improving left lower lobe volume loss. 2. Stable support devices. Dictated by: New Powers M.D. on 04/15/2017 X-RAY CHEST ONE VIEW, PORTABLE IMPRESSION: Bilateral pulmonary airspace opacities similar to prior examination suggesting bilateral aspiration versus pneumonia. Dictated by: Jak Ortiz Juan Interpreted: Paul Nieves MD on 04/16/2017 Cardiac Echo Impressions Interpretation Summary Severely dilated right ventricle with moderate to severely reduced systolic function. Thrombus is visualized in the right ventricle. There is a catheter seen in the right atrium. Comparison is made with the echocardiogram of 04/03/2017, right ventricle size has decreased slightly. Electronically signed by: Karishma Morrow on Reading Physician:04/05/2017 02:03 PM . Additional Diagnostics PROCEDURE: US ABDOMEN FINDINGS: Liver: Liver is enlarged in size and heterogeneous in echotexture with multiple hepatic mass lesions previously identified again seen, having enlarged in size from the comparison ultrasound 03/07/17 and the largest measures up to 5.5 x 5.0 x 4.3 cm. Gallbladder: The gallbladder watts just above the upper limits of normal at 3.1 mm, and appears to contain sludge. A small amount of adjacent free fluid can be seen. Biliary ducts: Intrahepatic bile ducts are non-dilated. Extrahepatic bile duct caliber measures 3.5 mm. Normal is 6-7 mm or less in diameter, or 10 mm or less post-cholecystectomy. Pancreas: Visualized portions of the pancreas are sonographically normal. Spleen: Spleen is normal in size and homogeneous in echotexture. Kidneys: The right kidney is normal in size and echotexture. Right kidney measures 16.3 cm long; left kidney could not be seen. No solid masses. Aorta: Visualized aorta is normal in caliber at less than 3 cm. Iliacs: Proximal common iliac arteries are normal in caliber at less than 2.5 cm. IVC: Intrahepatic inferior vena cava is patent. Miscellaneous: There is mild for quadrant abdominal free fluid. IMPRESSION: 4 quadrant mild ascites noted, growing mass lesions throughout the liver parenchyma. Nonvisualization of the left kidney due to overlying bowel gas and inability of the patient to fully cooperate with positioning and breath holding. Dictated by: Donnie Harrington M.D. 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 Extubated successfully now receiving chemotherapy and continued treatment. Acute Delirium, new and active - Post likely secondary to ongoing polypharmacy and interactions thereof. -Attempt to wean from Fentanyl and transition to MS contin. Concern for serotonin syndrome - Switch the Olanzapine to Quetiapine 25mg BID. Massive bilateral pulmonary emboli with obstructive shock, acute. Slowly improving. -There has been no radiographic improvement with bilateral PEs which have been refractory to EKOS and systemic anticoagulation, possibly suspected PEs are in fact tumor emboli. -Confirmed home dose of Lovenox 80 mg daily, most likely missing intermittent dosing prior to admission -Repeat CT shows unchanged clot burden despite treatment with tPA and EKOS 3, possible this is secondary to tumor emboli -Probable lysis not an option secondary to primary diagnosis of gastric tumor and prognosis -Continue with Argatroban drip, monitor PTT level -Patient extubated on 04/16/2017 -May switch anticoagulation to Pradaxa pending further testing Acute hypoxic respiratory failure, POA, improving -ICU/pulmonology team following greatly appreciated recommendations and treatment direction. - Multiple possibilities including pneumonia, PE, tumor emboli, mucous plugging - Bronchoscopy 2 with removal of mucous plug - Extubated 04/16/2017, maintains O2 saturation with high flow O2 continue to wean as tolerated - Patient remained somewhat anxious current meds include olanzapine 2.5mg Q12H and PRN Lorazepam 0.25-0.5mg IV. - Continue to taper off Precedex and fentanyl - Continue chips and sips awaiting speech - Family does not desire reintubation Gastric adenocarcinoma, present on admission. Ongoing -ICU team continues management for patient and care plan. Their time and expertise is greatly appreciated -Collagen following patient -HER-2 negative -Chemotherapy initiated FOLFOX per oncology -Suspicion for tumor lysis syndrome with rising phosphate, uric acid and decrease in bicarbonate. -We will continue to monitor - overlaying grim prognosis Pneumonia, not present on admission, improving. -Bronchial washing showed staph aureus, resistant to erythromycin. The patient also has had evidence of left lower lobe collapse likely from secretions. -Discontinued Zosyn, switched to nafcillin - also discontinued -Pro calcitonin continues to trend up though in the setting of liver metastasis unreliable, we will stop following this value -WBC continues to trend down, remains afebrile -ID following, recommendations appreciated -Ertapenem started 04/10/2017 -Bronchoscopy as above -Continue to monitor Sepsis secondary to HCAP. Acute and improving. -Most likely MSSA pneumonia, confirmed by bronchoscopy and lavage -CT angio showed bilateral pleural effusions, worsening bibasilar pneumonia pattern, greater on the left than the right. -WBC trending down, afebrile -No longer following Pro calcitonin in the setting of hepatic metastases -Infectious disease following -Antibiotics as above -No vasopressor requirements Anasarca, new and active. The patient has significant volume overload from resuscitation. We will continue to monitor and diuresis as able. -Large volume paracentesis 3 -Albumin replacement -Ascitic fluid shows exudate -Urinary output remains adequate -Continue to monitor, most likely repeat paracentesis Acute iron deficiency anemia. Stable. - Secondary to hemodilution from aggressive fluid resuscitation. Possibly secondary to GI bleed from malignant gastric ulcers, but no sign of acute bleed at this time. Hb has been stable, so will switch from PPI drip to BID. - PRBCs on hold. Transfuse for HB <8. - Check H&H daily - Protonix 40 mg IV BID - Monitor for signs of acute bleeding Bilateral popliteal DVT, POA and active. - Pt diagnosed with bilateral large DVTs 3 weeks ago, placed on Lovenox at home with possible missed doses - Currently therapeutic on Argatroban Hyperbilirubinemia, new and active. - Bilirubin and Alkaline phos trending up; scleral icterus on exam; likely secondary to hepatic metastases. - Abdominal and pelvis CT shows growing mass lesions throughout liver parenchyma Constipation. Present on admission, resolved -Currently having multiple bowel movements without difficulty Malnutrition. Ongoing -Nutrition following, TPN started with concentrated formula Electrolytes abnormalities, new and active. -Per ICU note: - Hypernatremia: Na level gradually trending up. Discussed with pharmacy about replacing the NS in his medications to D5W. Will also increase free water in his TPA - Hyperglycemia: multifactorial from TPN, Decadron and stress. Adjusted SQ sliding scale. Can add insulin to TPN if daily requirement excessive. Solitary kidney, chronic. 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 For now renal fxn and UOP are adequate. Will continue to monitor. Patient is on PPO BID for GI prophylaxis. He is on Argatroban ggt for PE, which is therapeutic. Patient Status: Patient remains in ICU. GI Prophylaxis: Proton Pump Inhibitor VTE Prophylaxis: Other (Argatroban ggt) Resuscitation Status: DNR/DNI:Do Not Resuscitate/Intubate (max support but DNR) Attending Statement The patient was seen and examined together with Dr. Huizar on April 18 and I agree with the history, exam findings, and plan as outlined in the note above. I did participate in all aspects of the services provided today, including documentation and the plan of care. We will continue to treat him for pulmonary embolism. The patient continues to be carious. He still has a persistent delirium from his septic encephalopathy. He will be finishing antibiotics for MSSA pneumonia today. BRICE HUIZAR DO Apr 18, 2017 18:30 Yaakov Fabian MD Apr 20, 2017 09:10
--- NOTE | 2017-04-18 18:32 | NUR ---
Mentation/HR/activity Throughout AM shift, pt alert and oriented to self, place and family but unable to say what year/month it was and cannot recall recent past events in his life. Asking questions about his medications, what is written on white board and also any type of nursing interventions. He would also come up with a sentence or phrase that was mumbled and did not make much sense. Gave PO seroquel and PO morphine as scheduled with no noticeable changes in restlessness or mentation. Pt denies any pain or nausea at this time. After around time of paracentesis pt started speaking less and RR and HR started to increase. RR in the high 30s and 40s for most of the time, ST in the 120-130s. He was also not moving his extremities as much and just sitting and staring with not much blinking, but not closing his eyes or sleeping. Notified MD of change in status, venous gas drawn (see ABGs). PT and ST attempted to work with patient but he was not reliably answering questions and his HR went to 170s with 56 PVCs an hour while trying to sit him on edge of bed, as well as RR up in the mid 40s. Continued to deny pain by a shake of his head after a delay. Unable to express if he was anxious or tired or any other feeling at that time. Repositioned pt in semi-fowlers with help from PT and let him rest. RR continued to stay in high 30s, O2 sats didn't drop during PT or patient care, maintained in the mid to high 90's. ST in the 120s after resting. Mentation changed continued throughout afternoon, spoke with Dr Vega as well as resident multiple times about changes, MD to bedside to reassess. Pt's pupils dilated, tongue midline, arms and legs drift after 3 seconds. He followed commands intermittently, but not reliably still. Weaker cough and not able to verbalize as well, delayed speech. Spoke with mom multiple times about taking breaks in between giving patient any ice or spoons of water. Explained risk of aspiration as well as when he is not following commands or seems confused, it is best not to try to give him anything by mouth. Frequent repositioning, oral care and rounding continues. Pt's mom at bedside throughout shift assisting with oral care, skin care and companionship.
[2017-04-18] MEDS: Total Parenteral Nutrition 1 BAG IV SCH (20:28)
[2017-04-18] MEDS: TPN Per Pharmacist XX SCH (20:29)
[2017-04-18 23:51] LABS: BASOPHILS % (AUTO) 0 % (0-3); EOSINOPHILS % (AUTO) 0.1 % (0-5); MONOCYTES % (AUTO) 0.9 % (4-12); Mean Corpuscular Hemoglobin 22.5 pg (27.0-35.0); Mean Corpuscular Volume 69.9 fL (81-100); NEUTROPHILS % (AUTO) 92.8 % (40-74); Platelet Count 558 bil/L (150-400)
[2017-04-19] VITALS (11 sets, daily range): BP systolic 109–125; BP diastolic 62–98; PULSE 121–152; RESP 32–44; O2SAT 90–100
--- NOTE | 2017-04-19 00:55 | PROG NOTE ---
[address] [address] PROGRESS NOTE PATIENT: DREA PELAYO : 1990 MR#: [id number] ADMIT: 04/03/2017 JOB ID: [id number] DATE: 04/18/2017 HOSPITAL ROUNDS: This is hospital day 16, day 6 after initiation of FOLFOX chemotherapy. The patient's neutrophil count is being watched. He will start filgrastim if any decline in neutrophil count warrants this. So far, he has not required filgrastim. This is a 27-year-old man who was hospitalized 16 days ago for massive pulmonary embolism. HISTORY OF PRESENT ILLNESS: 1. Massive PE with circulatory compromise and right ventricular failure. Failed EKOS therapy, resistant to heparin. Now on argatroban with gradual improvement. Now extubated and on nasal prong oxygen. 2. Being treated for pulmonary infection and sepsis, as well. 3. Massive hepatic metastases with ascites. Possible peritoneal carcinomatosis, although no cytology is back yet to confirm that. He requires frequent large-volume paracenteses. 4. Sepsis. 5. Anasarca. 6. Upper GI bleed. Creatinine is stable. 7. Malnutrition. Now on TPN. 8. The patient has become more confused as he starts to show improvement in other respects. In terms of systemic chemotherapy, he has tolerated this reasonably well. FOLFOX therapy is not prone to causing tumor lysis syndrome and he has not developed major metabolic abnormalities related to this. This is a q.2 week regimen. So, he would be up for another dose of FOLFOX a week from tomorrow. Whether he can receive this is entirely dependent on recovery from his other medical problems. Subjectively, the patient is awake and alert, but is delirious. He is saying a few words, but is mostly not tracking and not able to interact. He does respond that he is not in pain and is not in need of more oxygen. PHYSICAL EXAMINATION: His vital signs show a temp of 36.6 at 2030, pulse 104, respiratory rate 30, blood pressure 117/58, pulse ox 95% on 4 L. His I's and O's show a small amount of oral intake yesterday at 300 mL. He continues to receive TPN and received 1612 mL yesterday. His weight is 78.8 kg. Head and neck: The patient appears well cared for. Hie conjunctivae and eyes look well. He is not obviously jaundiced, although his bilirubin is elevated above 4. His oral mucosa looks clean. He has nasal prong O2 on. Lung irwin are clear, auscultated anteriorly and laterally. Cardiac: Rhythm is regular. Abdomen: He had a 5 L paracentesis, so his abdomen is fairly flat at this time. Bowel sounds are present. He has not had a bowel movement today, but did yesterday. Extremities: There is much less edema than yesterday. IMAGING: There has been a chest x-ray, on April 18, which shows bilateral pneumonia not significantly changed. LABORATORY VALUES: White count 20.6 with a high neutrophil count yesterday at 96%, hemoglobin currently is 7.8, hematocrit 24.6 and platelets 635. The BUN is 50 (down from 55), creatinine 0.47, glucose 167. Phosphorus is somewhat low at 2.4. Magnesium is normal. Bilirubin is down a little bit at 4.7. AST is down a little at 114, ALT is up a little bit at 84, alkaline phosphatase is stable at 444. Albumin is 2.2; the patient has been receiving albumin. ASSESSMENT AND RECOMMENDATIONS: From an oncology standpoint, the patient does appear to be improving with the very aggressive care of the critical care team and the hospitalist team. Dr. Vega has been able to wean him off the ventilator and get his O2 requirements down significantly. The patient continues to be followed by multiple specialties, including palliative care, which is appreciated. Whether or not he can receive another dose of chemotherapy depends entirely on tolerance at this point and stability as it would not be expected that any objective response would be seen this soon. The goal of chemotherapy is palliative, to shrink his liver tumors to afford him better liver function and a better quality of life. 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
[2017-04-19] MEDS: Insulin Human REGular 300 Unit/3 mL Inj SUBQ SCH ×4 (02:30→20:30)
[2017-04-19] MEDS: Morphine 2 mg/mL 5 mL Oral Solution PO SCH ×4 (02:56→20:30)
[2017-04-19 05:27] LABS: Mean Corpuscular Hemoglobin 21.9 pg (27.0-35.0); Mean Corpuscular Volume 69.8 fL (81-100)
--- NOTE | 2017-04-19 05:49 | NUR ---
Pt had episode of coughing and unable to catch breath. Pt coughed up moderate amt of blood from lungs. During this time pt became extremely SOB and oxygenation dropped to 84%. Pt was put on oxymask at [address] Tucker notified and a CBC was done. H/H came back at 7.7/23.9 which is where his labs have been running at baseline for a few days. No other new orders at this time. O2 saturations slowly improved and pt's o2 has been weaned back down to 4 lpm via oxymask. No other episodes of coughing up blood. Pt was suctioned well and oral care done. Oral care was done several times through the night and chapstick applied each time. Spoke with pt's father about giving pt a break from a full bath tonight second to pt becoming severely stressed out during the process. Pt had a full bath and linen change last night and linens are still clean at this point. Father agreed to no full bath and linen change being done tonight for pt's rest and comfort. Pt was a little more talkative tonight but this am is now more quiet but does nod head to questions. Pt's RR is still 30-40's and shallow. HR continues in a sinus tach.
[2017-04-19] MEDS: Pantoprazole 4 mg/mL 10 mL Inj IVPUSH SCH ×2 (08:01→16:54)
[2017-04-19] MEDS: Dexamethasone 4 mg/mL Inj IVPUSH SCH (08:01)
[2017-04-19] MEDS: HYDROmorphone 0.5 mg/0.5 mL iSecure Syringe IVPUSH PRN ×2 (08:29→12:43)
[2017-04-19] MEDS: [UNRECOGNIZED DRUG - REMARK] XX SCH (08:39)
[2017-04-19 09:26] LABS: Magnesium 2.1 mg/dL (1.6-2.6); Phosphorus 2.6 mg/dL (2.5-4.9)
[2017-04-19] MEDS ORDERED: TRANEXAMIC ACID IV ONE (09:35)
--- NOTE | 2017-04-19 09:47 | PCM.EDPN ---
ED Note Date of Service Apr 19, 2017 Called to bedside for evaluation of Mr. Malloy as there was concern for an uncontrolled ENT bleed. Upon my arrival at bedside, the patient appeared to be having a small amount of blood out of his mouth, however not coming from either of his nares. Dr. Vega was at bedside as well. We briefly discussed intubation with the family, however the patient is currently DNI - unclear source of his bleeding at this time, however he likely needs direct visualization to ensure that this is not a posterior bleed. After discussion with the family and with Dr. Vega, it was felt that they no longer needed my assistance and would continue to manage going forward. Dony Mayers MD Apr 19, 2017 09:47
--- NOTE | 2017-04-19 09:50 | DRSVH ---
PROCEDURE: X-RAY CHEST ONE VIEW, PORTABLE ([id number]) INDICATIONS: CHEST DISCOMFORT RISING HEART RATE TECHNIQUE: One view of the chest was acquired. COMPARISON: [facility], CR, XR CHEST 1VW (PORTABLE), 04/18/2017, 14:12. FINDINGS: Surgical changes and devices: None. Lungs and pleura: There are unchanged small bilateral pleural effusions. There is persistent left r etrocardiac consolidation or atelectasis. There is increased pulmonary vascular prominence compatibl e with increased edema. No pneumothorax. Mediastinum: Mediastinal contours appear normal. Heart size is normal. Bones and chest wall: No suspicious bony lesions. Overlying soft tissues appear unremarkable. IMPRESSION: 1. Persistent left cardiac consolidation or atelectasis. 2. Increased pulmonary edema. 3. Small bilateral pleural effusions redemonstrated. Dictated by: Wilfred Vargas M.D. on 04/19/2017 at 9:47 Approved by: Wilfred Vargas M.D. on 04/19/2017 at 9:49
--- NOTE | 2017-04-19 09:52 | PROG NOTE ---
[address] [address] PROGRESS NOTE PATIENT: DREA PELAYO : 1990 MR#: [id number] ADMIT: 04/03/2017 JOB ID: [id number] DATE: 04/19/2017 REASON FOR FOLLOWUP: Metastatic gastric adenocarcinoma of the liver with associated bilateral pulmonary emboli and probable MSSA respiratory tract infection. INTERVAL HISTORY: Earlier this morning the patient had a somewhat altered mental status, but was relatively stable from an overall point of view, just within the last few moments however he has started to cough or spit up large amounts of blood and his O2 sats have started to precipitously drop. At this point, he is very anxious. Earlier this morning he was short of breath, but was able to follow commands and shake his head yes and no appropriately, but was not speaking. He has had problems sleeping and ongoing delirium over the past two or three days. He stated he was having no fever and chills earlier this morning, but did report pain with inspiration. No additional history can be obtained. Right now, as the patient is in obvious severe respiratory distress. PHYSICAL EXAMINATION: Reveals a very short of breath young gentleman who is actively spitting up bright red blood. His temperature is 36.9, pulse is currently 100-120. His respiratory rate is currently 40-50, blood pressure 122/98. He was saturating well on 4 L supplemental oxygen, but now his O2 sats have dropped from the 90s a couple hours ago down to the 50s, and he is being switched to high-flow nasal oxygen at this moment. His mental status as noted earlier he was anxious, a bit confused perhaps, but able to answer some questions and follow some commands, though nonverbal. Right now he is profoundly anxious obviously as he is struggling to breathe. Oral cavity is notable for copious amounts of bright red blood now being expectorated. His lungs diffuse rales and rhonchi bilaterally with much decreased breath sounds over the past couple of hours. Cardiac tones notable for tachycardia. Abdomen less tense following a 5 L paracentesis yesterday, but still considerable fluid on board no doubt. No new skin rash. LABORATORIES: Include white count today 14,000 which is stable. Platelets 560 also stable. His chemistries are pending as they were canceled earlier. CEA 150 which is 30 times the upper limit of normal. Urinalysis without pyuria. No new cultures are available. We do have MSSA growing from the bronch wash on the and . IMAGING: Includes a chest x-ray yesterday which showed bilateral pulmonary infiltrates. We do not have a chest x-ray today, but one is being done emergently as we speak. Yesterday's film was reviewed and shows the persistent right lower lobe infiltrates, which have been present really throughout his hospital stay. IMPRESSION: Up until about an hour ago the patient appeared relatively stable though he was having ongoing delirium, which may have been at least in part due to various pain medications as well as complete absence of sleep. His breathing seemed to be better this morning following yesterday's large volume paracentesis and he seemed to be set for a relatively stable day, but now is having gross amounts of hemoptysis which must be related in some way to his pulmonary embolism and/or the anticoagulation for that process. RECOMMENDATIONS: 1. I would discontinue the ertapenem today as I think there is no longer any evidence for active infection and the ertapenem may predispose to mental status changes. 2. Should the patient suffer a significant aspiration event related to this morning's events we may be forced to restart antibiotics, but I might shy away from the use of ertapenem as it can occasionally be associated with delirium. 3. Will continue to follow this complex patient with you especially with respect to this acute process, which is ongoing.
[2017-04-19] MEDS: Ondansetron 2 mg/mL 2 mL Inj IVPUSH PRN (10:02)
[2017-04-19] MEDS ORDERED: HYDROmorphone 1 mg/mL Inj ONE (10:11)
[2017-04-19] MEDS ORDERED: Tranexamic Acid 100 mg/mL 10 mL Inj TOPICAL ONE (10:25)
[2017-04-19] MEDS: ARGATROBAN IV SCH ×2 (11:05)
[2017-04-19] MEDS: SODIUM CHLORIDE IV SCH ×2 (11:05)
--- NOTE | 2017-04-19 11:19 | PCM.PNMED ---
Subjective Date of Service Apr 19, 2017 Subjective When seeing the patient this morning I noted that his oxygen tubing to his face mask was disconnected and he was changed to a nasal cannula at 3 L/min and his SpO2 oscar from 90% to 95%. O2 was decreased to 2 L. He appeared more alert and interactive at one point complaining of an "upset stomach". Some 10-15 minutes later I was called back to his room urgently when the nursing staff noted jermaine blood from his mouth and some coughing and hypoxemia. He became unresponsive and hypoxemic. His high flow cannula was placed over his nose and set to FiO2 1.0 at 40 L/min. His SpO2 fell as low as 50% and he was ashen. I ordered the Argatroban to be stopped. Bright red blood continued to be suctioned from his mouth. His SpO2 slowly oscar to 80% his family had gathered at his bedside. I was able to perform fiberoptic exam of his nasopharynx and determine that this was NOT a posterior massive epistaxis. There was no bleeding withing the nasopharynx on either side seen. A CXR showed new diffuse alveolar infiltrates primarily in his Rt lung. I met with his family along with Dr. Calvo. I told them that I felt his bleeding was likely gastrointestinal in light of his complaint of abdominal pain just before his bleeding became evident, his known extensive involvement with gastric tumor and his recent receipt of cytotoxic chemotherapy as well as the fact that it was GI bleeding that had actually first lead to the diagnosis of his cancer. We had in fact discussed with them at length before beginning chemo that bleeding along with several other potentially catastrophic complications were possible and even likely to occur. While we discussing and agreeing on the need at this time to ensure Curtis's comfort his RN came to the conference room to tell us that Curtis was seizing. I went to his bedside and observed a generalized tonic-clonic seizure which stopped spontaneously after a minute. After this he became unresponsive and appeared to be post-ictal with slow regular respirations. He received 1 mg Ativan and 1 mg Dilaudid IV and appeared comfortable. His SpO2 slowly oscar while on the high flow system to 99% and I decreased the FiO2 to 0.9. Some 20-30 minutes after his witnessed seizure he opened his eyes and became interactive, recognizing family and even smiling at times. He continued to appear comfortable. There was no evidence of ongoing bleeding. I briefly spoke with his mother and sister at the bedside and told them that if he continued to stabilize, we should discuss whether to resume his Argatroban later today with the same risk/benefit calculation as we have previously discussed, i.e. bleeding versus leaving a massive near fatal pulmonary embolism untreated. I feel there is NO role for either endoscopic therapy for this bleeding or coil embolization to control his bleeding given that it is due to necrotic tumor heavily involving his stomach.He remains on BID PPI IV. As of 11:15 am, he is awake and surrounded by family, appearing comfortable. I feel his seizure was likely a result of his profound hypoxemia in the setting of drug withdrawal from both sedatives and opiates. While he could have a intracerebral mass lesion, such as a metastasis from his gastric CA, I don't plan to obtain a CT, at least for now, as there would be treatment for it given his overall grave condition. If he stabilizes and improves, imaging of is brain should be obtained. I will not start an anti-epileptic drug unless he has recurrent seizure outside of a hypoxic episode. Additional 55 minutes critical care as of this note. Exam Vital Signs Vital Sign - Last Date Time Temp Pulse Resp B/P Pulse Ox O2 Delivery O2 Flow Rate FiO2 04/19/17 04:30 Supplement Oxygen 04/19/17 04:30 36.9 121 40 122/98 96 4.00 04/18/17 10:15 30 Intake and Output 04/18/17 04/18/17 04/19/17 Cumulative From/Thru 15:00 23:00 07:00 04/03/17 07:34 - 04/19/17 05:45 Intake Total 1622 ml 1429 ml 02991 ml Output Total 1200 ml 1500 ml 80292 ml Balance 422 ml -71 ml 81831 ml Intake Oral 120 ml 700 ml IV Total 352 ml 141 ml 26920 ml Tube Feeding 1407 ml TPN/PPN 1270 ml 1168 ml 42027 ml Packed Cells 351 ml Tube Irrigant 480 ml Output Urine Total 1200 ml 1500 ml 13147 ml Gastric Drainage Total 1335 ml Drainage Total 46482 ml Other 1615 ml # Bowel Movements 0 4 Lab and Diagnostics Result Diagram: 04/19/1715 04/19/1715 Microbiology Bronchial washing grew MSSA 04/09 X-Rays, CTs and MRIs CT ANGIO CHEST PULMONARY EMBOLISM 1. Slight decrease in severe pulmonary embolic disease with resolution of the previously seen saddle embolus spanning the main pulmonary artery bifurcation. However, significant embolic burden remains bilaterally. 2. Improved aeration of the left lower lobe. Decreased right lower lobe pneumonia. 3. Moderate ascites and severe hepatic metastatic disease. 4. Healing left rib fractures. 5. Gastroesophageal reflux. Dictated by: Landon Noel M.D. on 04/11/2017 at 10:12 CT ABDOMEN AND PELVIS WITH CONTRAST 1. Interval increased amount of large abdominal and pelvic ascites, presumably from peritoneal carcinomatosis. 2. Numerous variably sized hepatic metastases again noted, most confluent in the left hepatic lobe. 3. 6.4 x 5.5 x 3.5 cm left pelvic cystic lesion appears to arise from the left seminal vesicle. 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 4. Small bibasilar mobile pleural effusions, with associated compressive atelectasis. Dictated by: Moisés Brasher M.D. on 04/11/2017 at 10:32 Chest x-ray Stable pulmonary venous engorgement and support devices. Dictated by: New Powers M.D. on 04/03/2017 at 11:01 CT angiogram 1. Multiple, bilateral large pulmonary emboli. 2. Flattening of the cardiac interventricular septum suggesting right heart strain. 3. Hepatic metastatic disease. 4. Findings telephoned to Dr. Nathan Paz on 04/03/17 at 0817 hrs. Dictated by: Louisa Jones MD, PhD on 04/03/2017 at 8:13 Chest x-ray 1. Endotracheal tube and nasogastric tube positioned as described. 2. Mild cardiomegaly and moderate vascular congestion. Dictated by: Tristin Mckenzie M.D. on 04/03/2017 at 9:55 Chest x-ray 1. Endotracheal tube is positioned at the thoracic inlet. 2. Mild cardiomegaly and vascular congestion is similar to the prior study. Dictated by: Tristin Mckenzie M.D. on 04/03/2017 at 10:03 US ABDOMEN IMPRESSION: 4 quadrant mild ascites noted, growing mass lesions throughout the liver parenchyma. Nonvisualization of the left kidney due to overlying bowel gas and inability of the patient to fully cooperate with positioning and breath holding. Dictated by: Donnie Harrington M.D. on 04/10/2017 CT ANGIO CHEST PULMONARY EMBOLISM IMPRESSION: 1. Slight decrease in severe pulmonary embolic disease with resolution of the previously seen saddle embolus spanning the main pulmonary artery bifurcation. However, significant embolic burden remains bilaterally. 2. Improved aeration of the left lower lobe. Decreased right lower lobe pneumonia. 3. Moderate ascites and severe hepatic metastatic disease. 4. Healing left rib fractures. 5. Gastroesophageal reflux. Dictated by: Landon Noel M.D. on 04/11/2017 CT ABDOMEN AND PELVIS WITH CONTRAST IMPRESSION: 1. Interval increased amount of large abdominal and pelvic ascites, presumably from peritoneal carcinomatosis. 2. Numerous variably sized hepatic metastases again noted, most confluent in the left hepatic lobe. 3. 6.4 x 5.5 x 3.5 cm left pelvic cystic lesion appears to arise from the left seminal vesicle. 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 4. Small bibasilar mobile pleural effusions, with associated compressive atelectasis. Dictated by: Moisés Brasher M.D. on 04/11/2017 X-RAY CHEST ONE VIEW, PORTABLE IMPRESSION: 1. Support tubes appear in place. PICC line appears to be in the atrium 2. Mild right lower lobe interstitial infiltrate. Persistent left lower lobe consolidation. Small left pleural effusion. Findings compatible with pneumonia/ aspiration. Dictated by: David Greer M.D. on 04/13/2017 X-RAY CHEST ONE VIEW, PORTABLE IMPRESSION: Stable chest. Dictated by: Paul Nieves M.D. on 04/14/2017 X-RAY CHEST ONE VIEW, PORTABLE IMPRESSION: 1. Asymmetric pulmonary edema with superimposed bibasilar pneumonia. Dictated by: Paul Nieves M.D. on 04/14/2017 X-RAY CHEST ONE VIEW, PORTABLE IMPRESSION: 1. Stable right basilar infiltrates. Improving left lower lobe volume loss. 2. Stable support devices. Dictated by: New Powers M.D. on 04/15/2017 X-RAY CHEST ONE VIEW, PORTABLE IMPRESSION: Bilateral pulmonary airspace opacities similar to prior examination suggesting bilateral aspiration versus pneumonia. Dictated by: Jak Ortiz RRA Interpreted: Paul Nieves MD on 04/16/2017 Cardiac Echo Impressions Interpretation Summary Severely dilated right ventricle with moderate to severely reduced systolic function. Thrombus is visualized in the right ventricle. There is a catheter seen in the right atrium. Comparison is made with the echocardiogram of 04/03/2017, right ventricle size has decreased slightly. Electronically signed by: Karishma Morrow on Reading Physician:04/05/2017 02:03 PM . Additional Diagnostics PROCEDURE: US ABDOMEN FINDINGS: Liver: Liver is enlarged in size and heterogeneous in echotexture with multiple hepatic mass lesions previously identified again seen, having enlarged in size from the comparison ultrasound 03/07/17 and the largest measures up to 5.5 x 5.0 x 4.3 cm. Gallbladder: The gallbladder watts just above the upper limits of normal at 3.1 mm, and appears to contain sludge. A small amount of adjacent free fluid can be seen. Biliary ducts: Intrahepatic bile ducts are non-dilated. Extrahepatic bile duct caliber measures 3.5 mm. Normal is 6-7 mm or less in diameter, or 10 mm or less post-cholecystectomy. Pancreas: Visualized portions of the pancreas are sonographically normal. Spleen: Spleen is normal in size and homogeneous in echotexture. Kidneys: The right kidney is normal in size and echotexture. Right kidney measures 16.3 cm long; left kidney could not be seen. No solid masses. Aorta: Visualized aorta is normal in caliber at less than 3 cm. Iliacs: Proximal common iliac arteries are normal in caliber at less than 2.5 cm. IVC: Intrahepatic inferior vena cava is patent. Miscellaneous: There is mild for quadrant abdominal free fluid. IMPRESSION: 4 quadrant mild ascites noted, growing mass lesions throughout the liver parenchyma. Nonvisualization of the left kidney due to overlying bowel gas and inability of the patient to fully cooperate with positioning and breath holding. Dictated by: Donnie Harrington M.D. 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 Extubated successfully now receiving chemotherapy and continued treatment. Acute Delirium, new and active - Post likely secondary to ongoing polypharmacy and interactions thereof. -Attempt to wean from Fentanyl and transition to MS contin. Concern for serotonin syndrome - Switch the Olanzapine to Quetiapine 25mg BID. Massive bilateral pulmonary emboli with obstructive shock, acute. Slowly improving. -There has been no radiographic improvement with bilateral PEs which have been refractory to EKOS and systemic anticoagulation, possibly suspected PEs are in fact tumor emboli. -Confirmed home dose of Lovenox 80 mg daily, most likely missing intermittent dosing prior to admission -Repeat CT shows unchanged clot burden despite treatment with tPA and EKOS 3, possible this is secondary to tumor emboli -Probable lysis not an option secondary to primary diagnosis of gastric tumor and prognosis -Continue with Argatroban drip, monitor PTT level -Patient extubated on 04/16/2017 -May switch anticoagulation to Pradaxa pending further testing Acute hypoxic respiratory failure, POA, improving -ICU/pulmonology team following greatly appreciated recommendations and treatment direction. - Multiple possibilities including pneumonia, PE, tumor emboli, mucous plugging - Bronchoscopy 2 with removal of mucous plug - Extubated 04/16/2017, maintains O2 saturation with high flow O2 continue to wean as tolerated - Patient remained somewhat anxious current meds include olanzapine 2.5mg Q12H and PRN Lorazepam 0.25-0.5mg IV. - Continue to taper off Precedex and fentanyl - Continue chips and sips awaiting speech - Family does not desire reintubation Gastric adenocarcinoma, present on admission. Ongoing -ICU team continues management for patient and care plan. Their time and expertise is greatly appreciated -Collagen following patient -HER-2 negative -Chemotherapy initiated FOLFOX per oncology -Suspicion for tumor lysis syndrome with rising phosphate, uric acid and decrease in bicarbonate. -We will continue to monitor - overlaying grim prognosis Pneumonia, not present on admission, improving. -Bronchial washing showed staph aureus, resistant to erythromycin. The patient also has had evidence of left lower lobe collapse likely from secretions. -Discontinued Zosyn, switched to nafcillin - also discontinued -Pro calcitonin continues to trend up though in the setting of liver metastasis unreliable, we will stop following this value -WBC continues to trend down, remains afebrile -ID following, recommendations appreciated -Ertapenem started 04/10/2017 -Bronchoscopy as above -Continue to monitor Sepsis secondary to HCAP. Acute and improving. -Most likely MSSA pneumonia, confirmed by bronchoscopy and lavage -CT angio showed bilateral pleural effusions, worsening bibasilar pneumonia pattern, greater on the left than the right. -WBC trending down, afebrile -No longer following Pro calcitonin in the setting of hepatic metastases -Infectious disease following -Antibiotics as above -No vasopressor requirements Anasarca, new and active. The patient has significant volume overload from resuscitation. We will continue to monitor and diuresis as able. -Large volume paracentesis 3 -Albumin replacement -Ascitic fluid shows exudate -Urinary output remains adequate -Continue to monitor, most likely repeat paracentesis Acute iron deficiency anemia. Stable. - Secondary to hemodilution from aggressive fluid resuscitation. Possibly secondary to GI bleed from malignant gastric ulcers, but no sign of acute bleed at this time. Hb has been stable, so will switch from PPI drip to BID. - PRBCs on hold. Transfuse for HB <8. - Check H&H daily - Protonix 40 mg IV BID - Monitor for signs of acute bleeding Bilateral popliteal DVT, POA and active. - Pt diagnosed with bilateral large DVTs 3 weeks ago, placed on Lovenox at home with possible missed doses - Currently therapeutic on Argatroban Hyperbilirubinemia, new and active. - Bilirubin and Alkaline phos trending up; scleral icterus on exam; likely secondary to hepatic metastases. - Abdominal and pelvis CT shows growing mass lesions throughout liver parenchyma Constipation. Present on admission, resolved -Currently having multiple bowel movements without difficulty Malnutrition. Ongoing -Nutrition following, TPN started with concentrated formula Electrolytes abnormalities, new and active. -Per ICU note: - Hypernatremia: Na level gradually trending up. Discussed with pharmacy about replacing the NS in his medications to D5W. Will also increase free water in his TPA - Hyperglycemia: multifactorial from TPN, Decadron and stress. Adjusted SQ sliding scale. Can add insulin to TPN if daily requirement excessive. Solitary kidney, chronic. 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 For now renal fxn and UOP are adequate. Will continue to monitor. Patient is on PPO BID for GI prophylaxis. He is on Argatroban ggt for PE, which is therapeutic. Patient Status: Patient remains in ICU. GI Prophylaxis: Proton Pump Inhibitor VTE Prophylaxis: Other (Argatroban ggt) Resuscitation Status: DNR/DNI:Do Not Resuscitate/Intubate (max support but DNR) Dony Vega MD Apr 19, 2017 11:19
--- NOTE | 2017-04-19 11:35 | PCM.PHAPRO ---
Progress TPN tpn#10 See yesterdays note. I. Fluid issues Paracentesis yesterday with removal of 6 liters. Sodium trend continues in spite of ~ 3.6 liters free water over the past 36 hrs. p/ Continue 2500ml/day sodium free solution. Pulmonology team to consider additional measures. II. Chem III. Glucose <140 IV. Macronutrients Advance to goal today 19-Apr-17 Standard Hang Time: 2100 Substrates Total kcal: 2270 AMINO ACIDS 120 g DEXTROSE 350 g Total Volume (mL): 2500 LIPIDS 60 g Sterile Water for Injection mL To Infuse Over (hrs): 24 Total Volume 2500 mL At at a rate of (mL/hr): 104 Additives Sodium Chloride 0 mEq "typical" daily requirements Sodium Acetate 0 mEq Sodium 50-120mEq Potassium Chloride 0 mEq Potassium 60-120mEq Potassium Phosphate 40 mEq Phosphate 20-40mEq Calcium Gluconate 0 mEq Magnesium 8-32mEq Magnesium Sulfate 12 mEq Calcium 9-22mEq POTASSIUM ACETATE 50 Acetate* 80-120mEq Chloride* 80-120mEq Regular Insulin 14 units *Depending on acid-base status Famotidine mg Multivitamins 1 std dose Insulin Regimen Trace Elements 1 std dose none Thiamine mg Regular Low Intensity Subcut Folic Acid mg Regular Medium Intensity Subcut Ascorbic Acid mg Regular High Intensity Subcut Regular Insulin Infusion Other: Special Instructions: To be infused via central line only. For delay or inturruption of TPN contact the pharmacist for alternative replacement solution. Joshua Floyd S Pharm D Apr 19, 2017 11:35
--- NOTE | 2017-04-19 11:59 | NUR ---
Resp Event 0930hrs Pt was stable on 2l NC, with sats 91 to 94%, RR which had been in the 30's continued to be in the low 30's. HR was in the low 100's ST. Lung sounds were clear, although decreased in bases and a little decreased in right lobes. At approx 0930hrs pt suddenly became dyspneic and spitting up jermaine blood. He was not actively coughing but was trying to clear his airway. [place] was used to suction his mouth and help him clear the blood. Sats dropped to a low of 54% MD was asked to come urgently to the room which he did immediately. NC was increased up to 6l until high flow O2 was placed onto pt, (high flow was still at the bedside). Sats increased with the high flow and at this time they are at 100%. MD used scope to check for post nasal bleed which was not seen. Bleeding abated by itself and pt condition improved. At approx 1010hrs pt had a seizure lasting approx 60sec's. ordered Ativan 1mg which was given IV. Pt's family was called back to the bedside from the conference room. Pt is now comfortable, denies pain, is interacting with his family, nodding and shaking his head. He denies pain. His HR is high though, in the 140's, it has been increasing since this morning. notified.
--- NOTE | 2017-04-19 14:11 | PCM.PNMED ---
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 He was treated with EKOS catheter directed thrombolytic therapy x 3 with no change in massive clot burden on repeat CTs. Heparin gtt was ineffective and was switched to Argatroban ggt. CT abdomen/pelvis on 04/11/2017 showed progression of the liver tumors and family decided to start FOLFOX on 04/13/2017 and completed the 1st cycle on 04/15/17. He was successfully extubated on 04/16/17 and is currently on Oxygen mask to maintain SpO2 in the mid 90s. Hospital Day 17. Extubation Day 4. Patient has remained relatively stable with SpO2 in the 95% on 4L Oxygen Mask overnight. He had an episode of desaturation to 84% after he coughed up a small a mount of blood. Per nursing report, he continues to have issue with sleeping difficulty and has not slept for a few days. Patient continues to have tachypnea in the 40s and tachycardia in the 130s. This morning, patient was nonverbal but appears comfortable initially. However, later in the morning, he had a significant hypoxemic event after he coughed up more bright red blood. Please see Dr. Vega's note below for the details of the event: When seeing the patient this morning I noted that his oxygen tubing to his face mask was disconnected and he was changed to a nasal cannula at 3 L/min and his SpO2 oscar from 90% to 95%. O2 was decreased to 2 L. He appeared more alert and interactive at one point complaining of an "upset stomach". Some 10-15 minutes later I was called back to his room urgently when the nursing staff noted jermaine blood from his mouth and some coughing and hypoxemia. He became unresponsive and hypoxemic. His high flow cannula was placed over his nose and set to FiO2 1.0 at 40 L/min. His SpO2 fell as low as 50% and he was ashen. I ordered the Argatroban to be stopped. Bright red blood continued to be suctioned from his mouth. His SpO2 slowly oscar to 80% his family had gathered at his bedside. I was able to perform fiberoptic exam of his nasopharynx and determine that this was NOT a posterior massive epistaxis. There was no bleeding withing the nasopharynx on either side seen. A CXR showed new diffuse alveolar infiltrates primarily in his Rt lung. I met with his family along with Dr. Calvo. I told them that I felt his bleeding was likely gastrointestinal in light of his complaint of abdominal pain just before his bleeding became evident, his known extensive involvement with gastric tumor and his recent receipt of cytotoxic chemotherapy as well as the fact that it was GI bleeding that had actually first lead to the diagnosis of his cancer. We had in fact discussed with them at length before beginning chemo that bleeding along with several other potentially catastrophic complications were possible and even likely to occur. While we discussing and agreeing on the need at this time to ensure Curtis's comfort his RN came to the conference room to tell us that Curtis was seizing. I went to his bedside and observed a generalized tonic-clonic seizure which stopped spontaneously after a minute. After this he became unresponsive and appeared to be post-ictal with slow regular respirations. He received 1 mg Ativan and 1 mg Dilaudid IV and appeared comfortable. His SpO2 slowly oscar while on the high flow system to 99% and I decreased the FiO2 to 0.9. Some 20-30 minutes after his witnessed seizure he opened his eyes and became interactive, recognizing family and even smiling at times. He continued to appear comfortable. There was no evidence of ongoing bleeding. I briefly spoke with his mother and sister at the bedside and told them that if he continued to stabilize, we should discuss whether to resume his Argatroban later today with the same risk/benefit calculation as we have previously discussed, i.e. bleeding versus leaving a massive near fatal pulmonary embolism untreated. I feel there is NO role for either endoscopic therapy for this bleeding or coil embolization to control his bleeding given that it is due to necrotic tumor heavily involving his stomach.He remains on BID PPI IV. As of 11:15 am, he is awake and surrounded by family, appearing comfortable. Exam Vital Signs Vital Sign - Last Date Time Temp Pulse Resp B/P Pulse Ox O2 Delivery O2 Flow Rate FiO2 04/19/17 04:30 Supplement Oxygen 04/19/17 04:30 36.9 121 40 122/98 96 4.00 04/18/17 10:15 30 Intake and Output 04/18/17 04/18/17 04/19/17 Cumulative From/Thru 15:00 23:00 07:00 04/03/17 07:34 - 04/19/17 05:45 Intake Total 1622 ml 1429 ml 95530 ml Output Total 1200 ml 1500 ml 09538 ml Balance 422 ml -71 ml 22418 ml Intake Oral 120 ml 700 ml IV Total 352 ml 141 ml 34442 ml Tube Feeding 1407 ml TPN/PPN 1270 ml 1168 ml 41198 ml Packed Cells 351 ml Tube Irrigant 480 ml Output Urine Total 1200 ml 1500 ml 02063 ml Gastric Drainage Total 1335 ml Drainage Total 17732 ml Other 1615 ml # Bowel Movements 0 4 Exam (Exam prior to hypoxemic incident) Gen: pale, cachetic young gentleman, inexpressive faces, blank looks, non-verbal , follows commands intermittently. HEENT: NCAT, mild conjunctival pallor, pink and dry mucosa. Cardio: Tachycardia, Regular rhythm with no murmurs rubs or gallops. Resp: Tachypnea, lung is clear to auscultation anteriorly with some rales in the bilateral bases. Abdomen: moderately distended and firm to palpation, normoactive bowel sound, moderate tenderness to palpation. Extremities: Warm to the touch, moderate pitting edema in the bilateral ankles, improved compared to prior exam. Skin: pale, dry and intact. No skin rash noted. Neuro: Patient follows commands intermittently. Sensation grossly intact to light touch. IVs and Medications Medications Reviewed: Medications were reviewed in detail Medications High risk medications include MS contin and Dilaudid Lab and Diagnostics Result Diagram: 04/19/17 0515 04/18/17 0345 Microbiology Bronchial washing grew MSSA 04/09 X-Rays, CTs and MRIs CT ANGIO CHEST PULMONARY EMBOLISM 1. Slight decrease in severe pulmonary embolic disease with resolution of the previously seen saddle embolus spanning the main pulmonary artery bifurcation. However, significant embolic burden remains bilaterally. 2. Improved aeration of the left lower lobe. Decreased right lower lobe pneumonia. 3. Moderate ascites and severe hepatic metastatic disease. 4. Healing left rib fractures. 5. Gastroesophageal reflux. Dictated by: Landon Noel M.D. on 04/11/2017 at 10:12 CT ABDOMEN AND PELVIS WITH CONTRAST 1. Interval increased amount of large abdominal and pelvic ascites, presumably from peritoneal carcinomatosis. 2. Numerous variably sized hepatic metastases again noted, most confluent in the left hepatic lobe. 3. 6.4 x 5.5 x 3.5 cm left pelvic cystic lesion appears to arise from the left seminal vesicle. 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 4. Small bibasilar mobile pleural effusions, with associated compressive atelectasis. Dictated by: Moisés Brasher M.D. on 04/11/2017 at 10:32 Chest x-ray Stable pulmonary venous engorgement and support devices. Dictated by: New Powers M.D. on 04/03/2017 at 11:01 CT angiogram 1. Multiple, bilateral large pulmonary emboli. 2. Flattening of the cardiac interventricular septum suggesting right heart strain. 3. Hepatic metastatic disease. 4. Findings telephoned to Dr. Nathan Paz on 04/03/17 at 0817 hrs. Dictated by: Louisa Jones MD, PhD on 04/03/2017 at 8:13 Chest x-ray 1. Endotracheal tube and nasogastric tube positioned as described. 2. Mild cardiomegaly and moderate vascular congestion. Dictated by: Tristin Mckenzie M.D. on 04/03/2017 at 9:55 Chest x-ray 1. Endotracheal tube is positioned at the thoracic inlet. 2. Mild cardiomegaly and vascular congestion is similar to the prior study. Dictated by: Tristin Mckenzie M.D. on 04/03/2017 at 10:03 US ABDOMEN IMPRESSION: 4 quadrant mild ascites noted, growing mass lesions throughout the liver parenchyma. Nonvisualization of the left kidney due to overlying bowel gas and inability of the patient to fully cooperate with positioning and breath holding. Dictated by: Donnie Harrington M.D. on 04/10/2017 CT ANGIO CHEST PULMONARY EMBOLISM IMPRESSION: 1. Slight decrease in severe pulmonary embolic disease with resolution of the previously seen saddle embolus spanning the main pulmonary artery bifurcation. However, significant embolic burden remains bilaterally. 2. Improved aeration of the left lower lobe. Decreased right lower lobe pneumonia. 3. Moderate ascites and severe hepatic metastatic disease. 4. Healing left rib fractures. 5. Gastroesophageal reflux. Dictated by: Landon Noel M.D. on 04/11/2017 CT ABDOMEN AND PELVIS WITH CONTRAST IMPRESSION: 1. Interval increased amount of large abdominal and pelvic ascites, presumably from peritoneal carcinomatosis. 2. Numerous variably sized hepatic metastases again noted, most confluent in the left hepatic lobe. 3. 6.4 x 5.5 x 3.5 cm left pelvic cystic lesion appears to arise from the left seminal vesicle. 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 4. Small bibasilar mobile pleural effusions, with associated compressive atelectasis. Dictated by: Moisés Brasher M.D. on 04/11/2017 X-RAY CHEST ONE VIEW, PORTABLE IMPRESSION: 1. Support tubes appear in place. PICC line appears to be in the atrium 2. Mild right lower lobe interstitial infiltrate. Persistent left lower lobe consolidation. Small left pleural effusion. Findings compatible with pneumonia/ aspiration. Dictated by: David Greer M.D. on 04/13/2017 X-RAY CHEST ONE VIEW, PORTABLE IMPRESSION: Stable chest. Dictated by: Paul Nieves M.D. on 04/14/2017 X-RAY CHEST ONE VIEW, PORTABLE IMPRESSION: 1. Asymmetric pulmonary edema with superimposed bibasilar pneumonia. Dictated by: Paul Nieves M.D. on 04/14/2017 X-RAY CHEST ONE VIEW, PORTABLE IMPRESSION: 1. Stable right basilar infiltrates. Improving left lower lobe volume loss. 2. Stable support devices. Dictated by: New Powers M.D. on 04/15/2017 X-RAY CHEST ONE VIEW, PORTABLE IMPRESSION: Bilateral pulmonary airspace opacities similar to prior examination suggesting bilateral aspiration versus pneumonia. Dictated by: Jak Ortiz RRA Interpreted: Paul Nieves MD on 04/16/2017 Cardiac Echo Impressions Interpretation Summary Severely dilated right ventricle with moderate to severely reduced systolic function. Thrombus is visualized in the right ventricle. There is a catheter seen in the right atrium. Comparison is made with the echocardiogram of 04/03/2017, right ventricle size has decreased slightly. Electronically signed by: Karishma Morrow on Reading Physician:04/05/2017 02:03 PM . Additional Diagnostics PROCEDURE: US ABDOMEN FINDINGS: Liver: Liver is enlarged in size and heterogeneous in echotexture with multiple hepatic mass lesions previously identified again seen, having enlarged in size from the comparison ultrasound 03/07/17 and the largest measures up to 5.5 x 5.0 x 4.3 cm. Gallbladder: The gallbladder watts just above the upper limits of normal at 3.1 mm, and appears to contain sludge. A small amount of adjacent free fluid can be seen. Biliary ducts: Intrahepatic bile ducts are non-dilated. Extrahepatic bile duct caliber measures 3.5 mm. Normal is 6-7 mm or less in diameter, or 10 mm or less post-cholecystectomy. Pancreas: Visualized portions of the pancreas are sonographically normal. Spleen: Spleen is normal in size and homogeneous in echotexture. Kidneys: The right kidney is normal in size and echotexture. Right kidney measures 16.3 cm long; left kidney could not be seen. No solid masses. Aorta: Visualized aorta is normal in caliber at less than 3 cm. Iliacs: Proximal common iliac arteries are normal in caliber at less than 2.5 cm. IVC: Intrahepatic inferior vena cava is patent. Miscellaneous: There is mild for quadrant abdominal free fluid. IMPRESSION: 4 quadrant mild ascites noted, growing mass lesions throughout the liver parenchyma. Nonvisualization of the left kidney due to overlying bowel gas and inability of the patient to fully cooperate with positioning and breath holding. Dictated by: Donnie Harrington M.D. 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 He is receiving Ertapenem for a MSSA pneumonia and as empiric coverage for intrabdominal sepsis. He began FOLFOX 04/13 and completed 1st cycle 04/15. # New- onset seizure, resolved. - Patient developed seizure that quickly resolved with Ativan 2mg IV. - Likely a result of his profound hypoxemia in the setting of drug withdrawal from both sedatives and opiates. - While he could have a intracerebral mass lesion, such as a metastasis from his gastric CA, we don't plan to obtain a CT, at least for now, as there would be treatment for it given his overall grave condition. If he stabilizes and improves, imaging of is brain should be obtained. - Will have Ativan 1-2mg IV available PRN seizure or anxiety #. Possible upper GI bleed, new and active. - Patient's H/H has been trending down, but overall stable. Hemoglobin this morning was 7.7. - He developed hemoptysis/hematemesis, but the definite bleeding source is unclear at this point. High suspicion for upper GI bleed from the gastric tumor and patient might aspirate the blood to the lungs. - Fiberoptic exam of his nasopharynx and determine that this was NOT a posterior massive epistaxis. - A CXR showed new diffuse alveolar infiltrates primarily in his Rt lung and was read as pulmonary edema per radiology. - Argatroban gtt stopped and his bleeding resolved. - Will check H/H and PTT. - Dr. Green (GI) was consulted per family's request for possible EGD. He did the EGD on the patient in February 2017 and kindly agrees to see the patient. - Will need to follow up with the family about the EGD as well as the decision to resume the Argatroban. - NPO diet. Patient is on Protoxin 40mg IV BID for GI prophylaxis and will continue at this point. Consider switching to PPI ggt if H/H continues to drop. #. Acute Delirium, new and active. - multifactorial, likely associated with mechanical ventilator, opioid withdrawal, and/or medications side effects. - Hold oral MS contin 7.5mg PO Q6H for pain due to NPO status. Dilaudid PRN available. Patient is no longer on any sedation drips. - Both Olanzapine and Quetiapine were discontinued yesterday due to worsening of his symptoms. - Continue to follow clinically. #. Acute Hypoxemic respiratory failure, on mechanical ventilation for 14 days, extubated day 3, improved. - Likely is multifactorial with the pneumonia, pulmonary embolism, and mucous plugging. S/p bronchoscopy x2. - Extubated successfully on 04/16/2017, maintains O2 saturation with hi-flow NC. Will continue to wean off the O2 as tolerated. - Family has decided not to re-intubate in the event of recurrent respiratory distress. #. Sepsis due to left lower lobe MSSA pneumonia, new and improved. - Appears to be methicillin-sensitive Staphylococcus aureus, confirmed by bronch washing x2. - WBC trending down and no fever. - Appreciate Dr. Goldberg's input. - Patient finished 10 days of Ertapenem today. Will observe him off antibiotics and will consider re-start antibiotics if he has signs and symptoms of infection. - No other apparent source of infection. The first ascitic fluid analysis did not meet the standard criteria for bacterial peritonitis. Culture shows no growth. #. Acute bilateral massive pulmonary embolism with obstructive shock, POA, active. - RV pressure overload on echo but no radiographic resolution of his extensive bilateral PE's despite EKOS and systemic anticoagulation with heparin and now argatroba. - Possible this is not all thrombosis but might have some degree of tumor emboli given extent of hepatic involvement. - Systemic thrombolysis not an option given his history of Gastric tumor and recent GI bleeds requiring transfusion. Surgical thrombectomy is also not a consideration given his grim primary diagnosis. - Hold Argatroban drip due to possible GI bleed. Will check with family before resuming it. - The initial test ordered by Dr. Suazo showed that patient has antithrombin deficiency. Repeat Antithrombin III Antigen is once again low. Therefore, Pradaxa is likely the best anticoagulant as outpatient. #. Abdominal ascites, recurrent and active. - Likely a reflection of his elevated RV pressure and hypoalbuminemia along with his tumor involvement. - Patient had 4 paracenteses thus far, the last one was yesterday 04/18/17 with 5L of bile-stained clear fluid removed. - Studies of the ascitic fluid from the first paracentesis on 04/10/17 showed that the SAAG is 0.8, consistent with an exudative type ascites. - Will repeat paracentesis as needed. #. Electrolytes abnormalities, new and active. - Hypernatremia: Na level gradually trending up. Discussed with pharmacy about replacing the NS in his medications to D5W. Will also increase free water in his TPA - Hyperglycemia: multifactorial from TPN, Decadron and stress. Adjusted SQ sliding scale. Can add insulin to TPN if daily requirement excessive. #. Metastatic liver cancer due to poorly differentiated adenocarcinoma, active. - Metastatic HER-2 negative adenocarcinoma, likely gastric in origin. CT abd/ pelvis on 04/11/17 revealed numerous variably sized hepatic metastases, most confluent in the left hepatic lobe. - Chemotherapy per Oncology. The patient received one course of FOLFOX chemotherapy from April 13 through April 15, 2017. No acute toxicities identified. White cell count remains elevated. - Treatment would be largely palliative and fraught with multiple potential catastrophic complications. Family has been repeatedly informed of the significant risks for catastrophic complications for which there may be no effective treatment. In the event of a cardiac arrest, he is now DNAR and no reintubation. - Given concerns for active Staphylococcus aureus infection, have a low threshold for initiating growth factor support. - Await results of Peutz-Jeghers syndrome testing. - Continue with Decadron for adjunctive pain management. Will have to hold MS contin oral solution due to NPO status. Continue PRN IV Hydromorphone for breakthrough pain. Patient is not a good candidate for Fentanyl patch give his cachetic state. #. Liver failure, stable. - LFTs continue to be elevated, likely secondary to hepatic metastases. - Abdominal U/S and abdominal/pelvis CT showed growing mass lesions throughout the liver parenchyma. #. Solitary kidney, chronic. 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 For now renal fxn and UOP are adequate. Will continue to monitor. Patient is on PPO BID for GI prophylaxis. He is on Argatroban ggt for PE, which is therapeutic. Pain Evaluation: Adequate Pain Control GI Prophylaxis: Proton Pump Inhibitor VTE Prophylaxis: Other (Argatroban ggt) Resuscitation Status: DNR/DNI:Do Not Resuscitate/Intubate (max support but DNR) Mary Bourgeois DO Apr 19, 2017 08:20
[2017-04-19] MEDS: ERTAPENEM IV SCH (15:03)
[2017-04-19] MEDS: DEXTROSE 5% IV SCH (15:03)
--- NOTE | 2017-04-19 15:25 | PCM.PNMED ---
Subjective Date of Service Apr 19, 2017 Subjective The patient had an episode of regurgitating blood this morning and probably aspirating. He was in transient respiratory arrest but now is improved considerably. This afternoon he was awake. He continues to be quite delirious. I met with him with mother and sister at the bedside. He is not able to articulate any specific complaints or answer questions. Exam Vital Signs Vital Sign - Last Date Time Temp Pulse Resp B/P Pulse Ox O2 Delivery O2 Flow Rate FiO2 04/19/17 14:30 97 32 90 Nasal Cannula 70 80 04/19/17 12:00 37.2 118/78 Intake and Output 04/18/17 04/18/17 04/19/17 Cumulative From/Thru 15:00 23:00 07:00 04/03/17 07:34 - 04/19/17 05:45 Intake Total 1622 ml 1429 ml 25107 ml Output Total 1200 ml 1500 ml 35908 ml Balance 422 ml -71 ml 62615 ml Intake Oral 120 ml 700 ml IV Total 352 ml 141 ml 34931 ml Tube Feeding 1407 ml TPN/PPN 1270 ml 1168 ml 02195 ml Packed Cells 351 ml Tube Irrigant 480 ml Output Urine Total 1200 ml 1500 ml 14080 ml Gastric Drainage Total 1335 ml Drainage Total 89297 ml Other 1615 ml # Bowel Movements 0 4 Exam He is awake and monitoring, not clearly oriented. He does appear fairly comfortable. Icteric sclera. Lungs are clear with normal rate and effort Heart is regular without murmur gallop or rub Abdomen distended but nontender. Extremities gross edema bilaterally. Skin is free of rash or lesions. He is mildly jaundiced. IVs and Medications Medications Reviewed: Medications were reviewed in detail Lab and Diagnostics Result Diagram: 04/19/17 1336 04/19/17 0515 Microbiology Bronchial washing grew MSSA 04/09 X-Rays, CTs and MRIs CT ANGIO CHEST PULMONARY EMBOLISM 1. Slight decrease in severe pulmonary embolic disease with resolution of the previously seen saddle embolus spanning the main pulmonary artery bifurcation. However, significant embolic burden remains bilaterally. 2. Improved aeration of the left lower lobe. Decreased right lower lobe pneumonia. 3. Moderate ascites and severe hepatic metastatic disease. 4. Healing left rib fractures. 5. Gastroesophageal reflux. Dictated by: Landon Noel M.D. on 04/11/2017 at 10:12 CT ABDOMEN AND PELVIS WITH CONTRAST 1. Interval increased amount of large abdominal and pelvic ascites, presumably from peritoneal carcinomatosis. 2. Numerous variably sized hepatic metastases again noted, most confluent in the left hepatic lobe. 3. 6.4 x 5.5 x 3.5 cm left pelvic cystic lesion appears to arise from the left seminal vesicle. 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 4. Small bibasilar mobile pleural effusions, with associated compressive atelectasis. Dictated by: Moisés Brasher M.D. on 04/11/2017 at 10:32 Chest x-ray Stable pulmonary venous engorgement and support devices. Dictated by: New Powers M.D. on 04/03/2017 at 11:01 CT angiogram 1. Multiple, bilateral large pulmonary emboli. 2. Flattening of the cardiac interventricular septum suggesting right heart strain. 3. Hepatic metastatic disease. 4. Findings telephoned to Dr. Nathan Paz on 04/03/17 at 0817 hrs. Dictated by: Louisa Jones MD, PhD on 04/03/2017 at 8:13 Chest x-ray 1. Endotracheal tube and nasogastric tube positioned as described. 2. Mild cardiomegaly and moderate vascular congestion. Dictated by: Tristin Mckenzie M.D. on 04/03/2017 at 9:55 Chest x-ray 1. Endotracheal tube is positioned at the thoracic inlet. 2. Mild cardiomegaly and vascular congestion is similar to the prior study. Dictated by: Tristin Mckenzie M.D. on 04/03/2017 at 10:03 US ABDOMEN IMPRESSION: 4 quadrant mild ascites noted, growing mass lesions throughout the liver parenchyma. Nonvisualization of the left kidney due to overlying bowel gas and inability of the patient to fully cooperate with positioning and breath holding. Dictated by: Donnie Harrington M.D. on 04/10/2017 CT ANGIO CHEST PULMONARY EMBOLISM IMPRESSION: 1. Slight decrease in severe pulmonary embolic disease with resolution of the previously seen saddle embolus spanning the main pulmonary artery bifurcation. However, significant embolic burden remains bilaterally. 2. Improved aeration of the left lower lobe. Decreased right lower lobe pneumonia. 3. Moderate ascites and severe hepatic metastatic disease. 4. Healing left rib fractures. 5. Gastroesophageal reflux. Dictated by: Landon Noel M.D. on 04/11/2017 CT ABDOMEN AND PELVIS WITH CONTRAST IMPRESSION: 1. Interval increased amount of large abdominal and pelvic ascites, presumably from peritoneal carcinomatosis. 2. Numerous variably sized hepatic metastases again noted, most confluent in the left hepatic lobe. 3. 6.4 x 5.5 x 3.5 cm left pelvic cystic lesion appears to arise from the left seminal vesicle. 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 4. Small bibasilar mobile pleural effusions, with associated compressive atelectasis. Dictated by: Moisés Brasher M.D. on 04/11/2017 X-RAY CHEST ONE VIEW, PORTABLE IMPRESSION: 1. Support tubes appear in place. PICC line appears to be in the atrium 2. Mild right lower lobe interstitial infiltrate. Persistent left lower lobe consolidation. Small left pleural effusion. Findings compatible with pneumonia/ aspiration. Dictated by: David Greer M.D. on 04/13/2017 X-RAY CHEST ONE VIEW, PORTABLE IMPRESSION: Stable chest. Dictated by: Paul Nieves M.D. on 04/14/2017 X-RAY CHEST ONE VIEW, PORTABLE IMPRESSION: 1. Asymmetric pulmonary edema with superimposed bibasilar pneumonia. Dictated by: Paul Nieves M.D. on 04/14/2017 X-RAY CHEST ONE VIEW, PORTABLE IMPRESSION: 1. Stable right basilar infiltrates. Improving left lower lobe volume loss. 2. Stable support devices. Dictated by: New Powers M.D. on 04/15/2017 X-RAY CHEST ONE VIEW, PORTABLE IMPRESSION: Bilateral pulmonary airspace opacities similar to prior examination suggesting bilateral aspiration versus pneumonia. Dictated by: Jak Ortiz RRA Interpreted: Paul Nieves MD on 04/16/2017 Cardiac Echo Impressions Interpretation Summary Severely dilated right ventricle with moderate to severely reduced systolic function. Thrombus is visualized in the right ventricle. There is a catheter seen in the right atrium. Comparison is made with the echocardiogram of 04/03/2017, right ventricle size has decreased slightly. Electronically signed by: Karishma Morrow on Reading Physician:04/05/2017 02:03 PM . Additional Diagnostics PROCEDURE: US ABDOMEN FINDINGS: Liver: Liver is enlarged in size and heterogeneous in echotexture with multiple hepatic mass lesions previously identified again seen, having enlarged in size from the comparison ultrasound 03/07/17 and the largest measures up to 5.5 x 5.0 x 4.3 cm. Gallbladder: The gallbladder watts just above the upper limits of normal at 3.1 mm, and appears to contain sludge. A small amount of adjacent free fluid can be seen. Biliary ducts: Intrahepatic bile ducts are non-dilated. Extrahepatic bile duct caliber measures 3.5 mm. Normal is 6-7 mm or less in diameter, or 10 mm or less post-cholecystectomy. Pancreas: Visualized portions of the pancreas are sonographically normal. Spleen: Spleen is normal in size and homogeneous in echotexture. Kidneys: The right kidney is normal in size and echotexture. Right kidney measures 16.3 cm long; left kidney could not be seen. No solid masses. Aorta: Visualized aorta is normal in caliber at less than 3 cm. Iliacs: Proximal common iliac arteries are normal in caliber at less than 2.5 cm. IVC: Intrahepatic inferior vena cava is patent. Miscellaneous: There is mild for quadrant abdominal free fluid. IMPRESSION: 4 quadrant mild ascites noted, growing mass lesions throughout the liver parenchyma. Nonvisualization of the left kidney due to overlying bowel gas and inability of the patient to fully cooperate with positioning and breath holding. Dictated by: Donnie Harrington M.D. 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 He is receiving Ertapenem for a MSSA pneumonia and as empiric coverage for intrabdominal sepsis. He began FOLFOX 04/13 and completed 1st cycle 04/15. Recurrent upper GI bleed with limited hematemesis. Improved. This appears to have stabilized. We will follow clinically and monitor his hematocrit. Probable recurrent blood aspiration. Improved. Titrate oxygen as needed and follow clinically. New seizure this morning, resolved. Patient was given lorazepam. Etiology of this remains unclear. We will continue to follow clinically. Septic encephalopathy, new and active. - Post likely secondary to ongoing polypharmacy and interactions thereof. -Fentanyl has been weaned, patient is now receiving MS Contin. The patient continues to have altered sleep cycles. We will consider at bedtime Haldol as recommended by positive care THIS morning. Massive bilateral pulmonary emboli with obstructive shock, acute. Slowly improving. -There has been no radiographic improvement with bilateral PEs which have been refractory to EKOS and systemic anticoagulation, possibly suspected PEs are in fact tumor emboli. -Confirmed home dose of Lovenox 80 mg daily, most likely missing intermittent dosing prior to admission -Repeat CT shows unchanged clot burden despite treatment with tPA and EKOS 3, possible this is secondary to tumor emboli -Probable lysis not an option secondary to primary diagnosis of gastric tumor and prognosis -Continue with Argatroban drip, monitor PTT level -Patient extubated on 04/16/2017 -May switch anticoagulation to Pradaxa pending further testing Acute hypoxic respiratory failure, POA, active and slightly worsened this morning with aspiration. -ICU/pulmonology team following greatly appreciated recommendations and treatment direction. - Multiple possibilities including pneumonia, PE, tumor emboli, mucous plugging - Bronchoscopy 2 with removal of mucous plug - Extubated 04/16/2017, maintains O2 saturation with high flow O2 continue to wean as tolerated - Patient remained somewhat anxious current meds include olanzapine 2.5mg Q12H and PRN Lorazepam 0.25-0.5mg IV. - Continue to taper off Precedex and fentanyl - Continue chips and sips awaiting speech - Family does not desire reintubation Gastric adenocarcinoma, present on admission. Ongoing, status post 1 cycle of chemotherapy. -ICU team continues management for patient and care plan. Their time and expertise is greatly appreciated -Collagen following patient -HER-2 negative -Chemotherapy initiated FOLFOX per oncology -Suspicion for tumor lysis syndrome with rising phosphate, uric acid and decrease in bicarbonate. -We will continue to monitor - overlaying grim prognosis Pneumonia (MSSA), not present on admission, improving. -Bronchial washing showed staph aureus, resistant to erythromycin. The patient also has had evidence of left lower lobe collapse likely from secretions. -Ertapenem through today. -Pro calcitonin continues to trend up though in the setting of liver metastasis unreliable, we will stop following this value -WBC continues to trend down, remains afebrile -ID following, recommendations appreciated -Ertapenem started 04/10/2017 -Bronchoscopy as above -Continue to monitor Sepsis secondary to HCAP. Acute and improving. -Most likely MSSA pneumonia, confirmed by bronchoscopy and lavage -CT angio showed bilateral pleural effusions, worsening bibasilar pneumonia pattern, greater on the left than the right. -WBC trending down, afebrile -No longer following Pro calcitonin in the setting of hepatic metastases -Infectious disease following -Antibiotics as above -No vasopressor requirements Anasarca, new and active. 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 The patient has significant volume overload from resuscitation. We will continue to monitor and diuresis as able. -Large volume paracentesis 3 -Albumin replacement -Ascitic fluid shows exudate -Urinary output remains adequate -Continue to monitor, most likely repeat paracentesis Acute iron deficiency anemia. Stable. - Secondary to hemodilution from aggressive fluid resuscitation. Possibly secondary to GI bleed from malignant gastric ulcers, but no sign of acute bleed at this time. Hb has been stable, so will switch from PPI drip to BID. - PRBCs on hold. Transfuse for HB <8. - Check H&H daily - Protonix 40 mg IV BID - Monitor for signs of acute bleeding Bilateral popliteal DVT, POA and active. - Pt diagnosed with bilateral large DVTs 3 weeks ago, placed on Lovenox at home with possible missed doses - Currently therapeutic on Argatroban Hyperbilirubinemia, new and active. - Bilirubin and Alkaline phos trending up; scleral icterus on exam; likely secondary to hepatic metastases. - Abdominal and pelvis CT shows growing mass lesions throughout liver parenchyma Constipation. Present on admission, resolved -Currently having multiple bowel movements without difficulty Malnutrition. Ongoing -Nutrition following, TPN started with concentrated formula Electrolytes abnormalities, new and active. -Per ICU note: - Hypernatremia: Na level gradually trending up. Discussed with pharmacy about replacing the NS in his medications to D5W. Will also increase free water in his TPA - Hyperglycemia: multifactorial from TPN, Decadron and stress. Adjusted SQ sliding scale. Can add insulin to TPN if daily requirement excessive. Solitary kidney, chronic. 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 For now renal fxn and UOP are adequate. Will continue to monitor. Patient is on PPO BID for GI prophylaxis. He is on Argatroban ggt for PE, which is therapeutic. Patient Status: Patient remains in ICU. GI Prophylaxis: Proton Pump Inhibitor VTE Prophylaxis: Other (Argatroban ggt) Resuscitation Status: DNR/DNI:Do Not Resuscitate/Intubate (max support but DNR) GI Prophylaxis: Proton Pump Inhibitor VTE Prophylaxis: Other (Argatroban ggt) Resuscitation Status: DNR/DNI:Do Not Resuscitate/Intubate (max support but DNR) Yaakov Fabian MD Apr 19, 2017 15:25
[2017-04-19] MEDS ORDERED: Dextrose 10% 250 ML IV PRN (16:01)
[2017-04-19] MEDS: Dextrose 5% 1,000 ML IV SCH (17:02)
--- NOTE | 2017-04-19 17:28 | NUR ---
O2 tubing Of note, the O2 tubing that was disconnected this am had only been like that briefly as the tubing was noticed by nursing to have become disconnect from wall (? from pt pulling at his mask and accidently causing strain at the connection), and the Nasal Cannula tubing had been re connected instead of the Oxy mask, which the pt was wearing. With this, the pt's O2 sats had not changed much and continued to be in the low 90's, 91-94% . Pt did respond to the O2 cannula at 4l and was saturating in the high 90's and O2 was titrated down to 2l prior to his resp event this am.
--- NOTE | 2017-04-19 17:32 | NUR ---
P: Resp, Hemodynamics, Neuro, Social I,E: Pt has done well with the high flow O2 on and has had sats 97-100% with this. We are currently titrating this down slowly while maintaining sats in the high 90's. Pt had coarse lung sounds at noon, and this has improved when I listened at 1600hrs to fine scattered rhonchi. Pt has been having a moist cough but I have not seen any secretions (? if pt is swallowing his secretions). No further episodes of bleeding noted, and no further resp distress like this am's episode. Pt is in ST and his HR remains elevated in the 130's to 140's, (MD aware). HR was up in the 150's briefly but for the past hour has remained 130-140's. UOP is adequate. BP has been mostly 90's to 100's systolic this shift. H&H essentially stable. Pt was restless and agitated this a.m. He complained of pain and Dilaudid seemed to help his agitation and his pain. He is confused, positive for delirium, but obeys simple commands such as hand squeezing. Pt did have a seizure this am and was post ictal for a short time. Since then he has been awake, calm, interacting with family. He has continued to receive Diludid for pain as needed, which works well. Pt's family are at the bedside and have been encouraged to be with pt and are very supportive. Argatroban remains off at this time until MD speaks with family to review this med and it's side effects.
--- NOTE | 2017-04-19 19:27 | NUR ---
Pt coughing and expectorating old bloody sputum Pt has started to cough up brownish old looking bloody sputum this evening. Sats are around 95% on high flow 60%. HR has increased to the 150's. Pt does have a lot of visitors at this time ? extra stimuli increasing HR, will continue to watch.
[2017-04-19] MEDS: Total Parenteral Nutrition 1 BAG IV SCH (20:43)
[2017-04-19] MEDS: TPN Per Pharmacist XX SCH (20:43)
--- NOTE | 2017-04-19 21:39 | PCM.PALLBR ---
Palliative Care Recommendation Summary: DISEASE PROGRESSION/EVIDENCE OF DECLINE: rapidly progressive gastric adenoCA SYMPTOM BURDEN: overwhelming-critically ill FAMILY GOALS: 1. Family wants to know all facts about his illness and prognosis to better guide their decisions. After detailed discussion with oncologist/pulmonary legal associate and [facility] on 04/12, family elected to proceed with chemotherapy now, rather than w/d of care. 2. Family describes pt as "fighter", "survivor" but also not likely to be comfortable with debility 3. Would comfort care be more important than being awake and alert? Family has a strong goal to get him off vent so he can verbalize his opinion and also so they can communicate their love. Family focused on getting him off vent/off sedation. PALLIATIVE CARE COUNSELIN. on 04/12 reviewed need for sedation on vent. 2. [place] of surrogacy/decision making 3. Challenges of prognostication--family with many questions re: "what if" 4. Recognizing terminal nature of his malignancy--Dr. Suazo and Dr. Vega reiterated this. 5. Prognosis: Dr. Suazo indicated treatment likely to buy some time but in matter of months DPOA/Advanced Directives/POLST: Reviewed code status and after conference family agreed to DNR but with maintenance of aggressive interventions up to that level. On 04/13, Pulmonary Team asked [facility] to advise on use of dexamethasone and/ or any other non-opiate medications that can be used to help pt with pain and being more awake as they get ready to try to extubate him. Recommendations: 1. Following chemotherapy, give 8mg dexamethasone IV q AM. Goal: to alleviate liver capsule tension, edema of throat/tracheal area. Help with wakefulness in preparation for extubation. Watch for increased agitation/hallucination due to steroids. 2. Consider ketamine, starting dose 5-10mg po QID. Monitor BPs, should be normal range before starting ketamine. Record baseline pain score, sedation rating, blood pressure, heart rate and respiratory rate before the first dose of ketamine is given. Record pain score, sedation rating, blood pressure, heart rate and respiratory rate one hour after the first dose (or any dose increase) of ketamine is given then every 2 hours x 2 and then every 4 hours until stable dose is achieved. Contact the prescriber if blood pressure increases to 30 mmHg above baseline, if pulse increases to 20 bpm above baseline or rises above 100 bpm, if respiratory rate decreases to less than 10 breaths per minute or if excessive drowsiness develops. Ketamine may restore a patients opioid sensitivity and lead to opioid toxicity (respiratory depression). The palliative care provider may choose to reduce the opioid dose and/or change from long-acting to short-acting dosage forms when ketamine is started. Common side effect is dysphoria/hallucinations. Use low dose haldol to manage. Additional Medical Diagnoses with primary management by Hospitalist team include : #. Acute Hypoxemic respiratory failure, on mechanical ventilation since April 03 active. - Continuous sedation with fentanyl, precedex and propofol with daily awakening trial and SBT. We need to keep him sedated so he can tolerate the ventilation. #. Sepsis due to left lower lobe MSSA pneumonia, new and improved. - Appears to be methicillin-sensitive Staphylococcus aureus, confirmed by bronch washing x2. - Per Dr. Goldberg's recommendations, will continue with empirical antibiotic with Ertapenem, which has good activity against MSSA and provides some broader spectrum coverage for aspiration type pneumonia. Day #4 on Ertapenem. - No other apparent source of infection. #. Acute bilateral massive pulmonary embolism with obstructive shock, POA, active. - Systemic thrombolysis not an option given his history of Gastric tumor and recent GI bleeds requiring transfusion. Surgical thrombectomy is also not a consideration given his grim primary diagnosis. - Continue with Argatroban drip and monitor PTT level. #. Abdominal ascites, new and active. - Likely a reflection of his elevated RV pressure and hypoalbuminemia along with his tumor involvement. - First paracentesis removed 1600ml on 04/10/17 and second one removed 6500ml on 04/12/17. Intra-abdominal pressure is 14 today. - 50gms Albumin replacement given yesterday and 25gms last night to support BP after large volume paracentesis. Continue to monitor BP. - Studies of the ascitic fluid from the first paracentesis on 04/10/17 showed that the SAAG is 0.8, consistent with an exudative type ascites. - Will consider repeating therapeutic large volume paracentesis repeated as needed #. Hyperbilirubinemia, new and active. - LFTs continue to be elevated, likely secondary to hepatic metastases. - Abdominal U/S and abdominal/pelvis CT showed growing mass lesions throughout the liver parenchyma. #. Metastatic liver cancer due to poorly differentiated adenocarcinoma, active. - CT abd/pelvis on 04/11/17 revealed numerous variably sized hepatic metastases, most confluent in the left hepatic lobe. - Given the rapid progression of his adenocarcinoma, it is reasonable to proceed with chemotherapy. His family has decided to begin chemotherapy and have been full and repeatedly informed of the significant risks for catastrophic complications for which there may be no effective treatment. In the event of a cardiac arrest, he is now DNAR. - Starting FOLFOX today per Oncology. Treatment would be largely palliative and fraught with multiple potential catastrophic complications. Will continue to monitor him closely on the ventilator. - We discussed with Palliative Care about adjunct pain medication to the opioids , including Decadron. Patient will get 10mg of Decadron as a part of his chemo antiemetics today and we will monitor his symptoms. Will consider daily doses of Decadron if he tolerates it well. Patient is on PPO BID for GI prophylaxis. He is on Argatroban ggt for PE, which is therapeutic. Problems: End of Life Preferences DNR-- based on discussion with family. --severity of illness Goals of Care Decision to give chemo a try/continue aggressive intervention Resuscitation Status Resuscitation Status: DNR/DNI:Do Not Resuscitate/Intubate (max support but DNR) Total time 20 minutes; >50% face to face with patient and/or family, providing counselling regarding plans and recommendations, and in care coordination with his/her medical teams. I also spent an additional [ ] minutes counseling for advanced care planning with the patient/the patients family/the surrogate decision maker. Palliative Brief Note Date of Service Apr 19, 2017 . Palliative follow up Patient seen and family conference held this AM. All family present and Dr. Vega and Christelle and Zeus as well as staffing rn Engaged in discussion with focus on critical illness and development of jermaine hematemesis and probable aspiration with desat and change in CXR. Dr. Vega reviewed potential catastrophic issue of bleeding (now with anticoag on hold) vs hyper coag state. Notified urgently during conference that he was seizing. Dr. Vega attended the emergency. Family again at pt bedside. SZ managed and pt awakened and able to interact again with his family. Reviewed with his mother later-- offered availability if that would be helpful. They plan for meeting/review with Dr. Vega this evening. Usha Calvo MD Apr 19, 2017 21:39
--- NOTE | 2017-04-19 22:49 | PROG NOTE ---
[address] [address] PROGRESS NOTE PATIENT: DREA PELAYO : 1990 MR#: [id number] ADMIT: 04/03/2017 JOB ID: [id number] DATE: SUBJECTIVE: I was asked by the team to evaluate the patient for possible urgent endoscopy. He had a moderate amount, perhaps 70 cc or so, of light red blood seen coming up out of his mouth. The etiology of this was a little unclear. He has been on Argatroban for massive pulmonary embolus. With all of the bleeding, it looks like he aspirated and his pulmonary function deteriorated quite considerably this morning. When I saw him earlier, he was on high-flow oxygen and maintained sats in the mid 90s and was tachycardic in the 150s with a systolic blood pressure about 99. He had not had any melena and since the anticoagulant was turned off, he has not had any further clinical bleeding. I requested a repeat stat H and H, to get a sense as to whether this was rapidly falling and it was stable. OBJECTIVE: Vitals as above. The patient appeared to be under mild distress. Many family members present in the room. LABORATORY DATA: H and H is stable, as above. ASSESSMENT AND PLAN: A 27-year-old middle with metastatic adenocarcinoma. Primary appears to most likely be in the stomach in spite of the initial biopsy results. He has clinically deteriorated following the initiation of chemotherapy and has a massive pulmonary embolus requiring anticoagulation. Unfortunately, his prognosis is quite poor at the moment. I discussed with his sister and his dad today the role of endoscopy and felt that it would be best to hold off for the moment in that he does not appear to have ongoing massive hemorrhage. I explained that endoscopy could cause a significant deterioration in his pulmonary status requiring endotracheal intubation and certainly from that point it could be difficult to even extubate the patient. I therefore recommended we hold off on EGD and continue to monitor closely. I think it would be reasonable to restart his anticoagulation at the discretion of his primary service at any time and simply monitor closely for any signs of rebleeding.
[2017-04-20] VITALS (13 sets, daily range): BP systolic 111–124; BP diastolic 62–87; PULSE 122–153; RESP 26–36; O2SAT 92–97
[2017-04-20] MEDS: HYDROmorphone 0.5 mg/0.5 mL iSecure Syringe IVPUSH PRN ×5 (00:19→23:34)
--- NOTE | 2017-04-20 01:47 | PROG NOTE ---
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 The patient has been in the hospital now 17 days since admission for massive pulmonary embolism, circulatory collapse and other complications, including pneumonia and sepsis and progressive liver disease with massive ascites. He was able to be extubated several days ago, but had a setback today with aspiration of bloody material and transient respiratory arrest. He is now on a higher FiO2 and is tachycardic and more hypoxemia. He was seen by Dr. Green, who recommended against further endoscopy in view of his multiple medical complications and tenuous condition. He does seem to be stable in terms of his hematocrit, which is in the low 20s. Argatroban was held because he coughed or vomited up blood and clots, but he will need to be back on argatroban. The patient's multiple medical problems are covered more thoroughly in Dr. Vega's and hospitalist's notes and in my note from April 18. Subjectively, he remains delirious. He is able to formulate one and two-word phrases. He is very aware of his surroundings. He has multiple family members and friends, at least 10, surrounding him at this point. He complains of no pain at this time and feels that he is getting enough oxygen. PHYSICAL EXAMINATION: His vital signs show a temperature of 37.1 and pulse 145, which has been the case today. Respiratory rate is 33 and pulse ox 97% on 60%. Previously, he had been on nasal prongs as low as 40%. Head and neck: Pupils equal, round and reactive. The patient shows good care of his eyes and mouth. He has no oral lesions. The lungs are surprisingly clear to auscultation anteriorly and laterally. Cardiac: Rhythm is regular at around 140-150. Abdomen: He has been tapped and his abdomen is now nondistended. Extremities: Edema is a little worse today. LABORATORY VALUES AND IMAGING: A chest x-ray today shows persistent left cardiac consolidation or atelectasis, increased pulmonary edema and bilateral pleural fluid collections. Laboratory values show a white count of 14.2, hemoglobin 7.7, hematocrit 24.5 (and later in the day 23.9), platelets 560. The BUN and creatinine are 42 and 0.42. Sodium is 154, chloride 122, potassium 4.5, CO2 17. The CA 19-9 has dropped from 71 to 56 between March 27 and April 18. CEA is 15; it was 9.3 on March 27. ASSESSMENT AND RECOMMENDATIONS: From an oncology standpoint, the patient has at least tolerated systemic chemotherapy. There is no way to determine if he is responding as the tumor markers are inconclusive and conflicting in their interpretation. Overall, clinically, until he had his aspiration episode, he seemed to be improving and on the way to leaving the ICU in better condition, but he has now had at least a several-day setback. I believe that his risk for worsening clotting and circulatory compromise outweighs the risk for bleeding at this time and that he should be back on argatroban at least in the morning when he can be watched more closely for evidence of bleeding. His tachycardia, hypertension may well be related to aspiration. His mental status changes, including delirium, are likely related to polypharmacy as has been explained by others. His ammonia was really not high enough to explain it. However, his liver function may explain a prolonged half-life of many of his medications. Regarding seizure, temporally from the reports that I have read, this seems likely related to a hypoxemic episode. He could, of course, have brain metastases and this has not been investigated because of the difficulty in obtaining an MRI. In summary then, from an Oncology standpoint, this is an extremely fragile patient with multiple comorbidities who mainly, by virtue of his young age, has been able to improve somewhat. Whether he can improve enough to get out of the hospital still remains a question. Whether he can be stable enough to receive any further chemotherapy is also a big question that will have to be answered within the next week providing he remains stable enough to make that an appropriate question. I do not think that he is dying of his cancer or his complications at this point and it is very appropriate to continue with the aggressive supportive care that he is receiving, in particular in view of his delirium, which I think will clear with time.
[2017-04-20] MEDS: Morphine 2 mg/mL 5 mL Oral Solution PO SCH ×4 (02:10→20:17)
[2017-04-20] MEDS ORDERED: DEXTROSE 5% IV ONE (02:40)
[2017-04-20] MEDS ORDERED: LEVETIRACETAM IV ONE (02:40)
[2017-04-20 03:03] LABS: Phosphorus 3.2 mg/dL (2.5-4.9)
[2017-04-20] MEDS: Insulin Human REGular 300 Unit/3 mL Inj SUBQ SCH ×5 (03:05→21:24)
[2017-04-20] MEDS: Dexamethasone 4 mg/mL Inj IVPUSH SCH ×2 (03:06→08:22)
[2017-04-20 06:51] LABS: Mean Corpuscular Hemoglobin 22.5 pg (27.0-35.0); Mean Corpuscular Volume 71.5 fL (81-100)
[2017-04-20 07:23] LABS: INR 1.55 ratio
--- NOTE | 2017-04-20 08:00 | NUR ---
Seizure activity Pt had witnessed grandmal seizures @ 2316 & 0203, and tonic-clonic @0311, given Ativan 2mg IV x 3, given decadron 4mg IV and started on keppra IV @0306. Dr. Tucker notified of seizure activity each time. Post-ictal for few minutes. Pain Pt c/o generalized body pain 7-8/10, given dilaudid 1mg slow IVP x2, feldt score 4 post meds Cardiac HR upto 147-152 ST at start of shift, tachypneic with RR 35-40 shallow and rapid on 60%/40L on high flow, Tmax 38.2C, given tepid sponge bath, placed ice packs, temp down to 37.2C. Nutrition: continued on TPN @ 104 mls/hr, fingerstick BG <180. Notified of K+ 5.5 last night down to 5.2 this AM, with no new order. Father @ bedside updated of pts' status.
[2017-04-20] MEDS: [UNRECOGNIZED DRUG - REMARK] XX SCH (08:22)
[2017-04-20] MEDS: Pantoprazole 4 mg/mL 10 mL Inj IVPUSH SCH ×2 (08:22→16:33)
[2017-04-20] MEDS ORDERED: [UNRECOGNIZED DRUG - REMARK] XX SCH (08:30)
[2017-04-20] MEDS ORDERED: Dexamethasone 4 mg/mL Inj IVPUSH SCH (08:30)
[2017-04-20 08:57] LABS: APPEARANCE,URINE CLEAR (CLEAR,HAZY); COLOR,URINE YELLOW (YELLOW); OCCULT BLOOD,URINE TRACE (NEGATIVE)
[2017-04-20 08:58] LABS: ICTOTEST,URINE POSITIVE (Negative)
--- NOTE | 2017-04-20 08:59 | PROG NOTE ---
[address] [address] PROGRESS NOTE PATIENT: DREA PELAYO : 1990 MR#: [id number] ADMIT: 04/03/2017 JOB ID: [id number] DATE: 04/20/2017 INFECTIOUS DISEASE FOLLOWUP NOTE: REASON FOR FOLLOWUP: Metastatic gastric adenocarcinoma with prolonged hospital stay, aspiration of blood from bleeding yesterday, as well as new fever and increasing leukocytosis. INTERVAL HISTORY: Yesterday morning, the patient had an episode of brisk GI bleeding with a tremendous amount of aspiration and difficult respiration secondary to this ongoing GI bleeding. Eventually, his bleeding slowed and stopped but he is left with more significant shortness of breath and he is somewhat less alert than he was yesterday, though he does respond a bit to commands or questions. Overnight, he has developed new fevers, as well as a profound increase in his white count triggering additional concerns about infection. Recall that yesterday we decided to stop his ertapenem after 10 days of empiric therapy aimed at possible aspiration pneumonia, as well as MSSA that was found in his airway shortly after admission. This morning the patient is awake and clearly interacting a bit but does not answer questions with any more than a nod or shake of the head. He does note that he is short of breath and has fever. Beyond that, we cannot tell much. We did discuss the case with the ICU team, as well as the patient's mother at the bedside. He has had issues with breathing throughout the night. His problems continue this morning, and he remains profoundly weak. PHYSICAL EXAMINATION: Reveals a gentleman who is febrile now to 38.3. Recall that when he first came in he had a single temperature to 39 and then remained afebrile through about April 15. From April 15 and until last night he was afebrile. So, 96 hours of no fevers, only to develop a fever last night and again this morning 38.3. His blood pressure 115/65, pulse remained steady at 150 and recall yesterday morning before the GI bleeding his pulse was around 90 or 100. His respiratory rate is in the mid 20s, sometimes higher. He is saturating fairly well but requiring high-flow nasal oxygen. He appears very weak and lethargic and obviously having respiratory difficulties. His eyes were with scleral icterus, which is obvious. His oral cavity shows no thrush or pharyngitis. His neck veins are not elevated. His lungs are diffusely rhonchorous, and his rhonchi can be heard even without a stethoscope. There are decreased breath sounds at the right base and the right lower lung field in general. Cardiac tones notable for extreme tachycardia. One cannot appreciate a murmur at this rate. His abdomen is again becoming more distended with what is believed to be malignant ascites. Lowery catheter is present. He has some darker brown urine this morning. No significant cellulitis involving the extremities. His PICC line appears benign. LABORATORIES: Include white count 26,000, which has doubled since yesterday, 425,000 platelets. His creatinine 0.52. AST is 196, ALT 150, alk phos 626. These are all relatively stable. Albumin 2.1. Urinalysis without white cells. The only positive cultures we have are the two sputa from April 06 and April 09, both of which came from BAL samples and grew Staph aureus. The ascitic fluid culture on the was negative. Today's chest x-ray was reviewed and compared to prior films. It shows increasing right-sided infiltrate. IMPRESSION: It is difficult to know if the recrudescent fevers, which started last night after a four-day hiatus are due to aspiration of blood products in and of itself or perhaps due to another cause of infection. Other potential causes of infections here would include bacterial aspiration pneumonia, Clostridium difficile, urinary tract infection or fungemia. Pancreatitis would also be remotely possible as a consequence of chemo or prior antibiotics. At this point, I think we are obligated to go ahead and re-culture and restart the patient on antibiotics given his tenuous status even though it is quite likely that his fevers are actually noninfectious. Another possible cause of infection would be peritonitis, as he has already had more than one paracentesis and would certainly be at risk. RECOMMENDATIONS: 1. Consider tapping peritoneal fluid and culturing it. 2. Blood cultures x2 have been ordered. These will be fungal blood cultures from the PICC and the skin. 3. Lipase will be added to his labs. 4. Stool for C. diff will be checked. 5. Urinalysis with reflux culture will be checked. 6. If the patient could cough up some sputum, this could be an invaluable part of his workup. He is obviously not a candidate for bronchoscopy at this point. 7. Will go ahead and restart antibiotics which were stopped yesterday and start this time with Zosyn in a dose of 3.375 g q.6 h., as well as micafungin. 8. This case discussed in detail with the patient's mother at the bedside.
[2017-04-20] MEDS: Micafungin Inj 150 MG in 0.9% Sodium Chloride 100 ML IV SCH (09:07)
[2017-04-20] MEDS: Piperacillin-Tazo 3.375 Gm Inj 3.375 GM in Dextrose 5% Minibag Plus 50 ML IV SCH ×3 (09:07→20:52)
--- NOTE | 2017-04-20 09:46 | PCM.PNMED ---
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 Has had trial of EKOS 04/03 but repeat CTPA 04/05showed minimal resolution of his bilat PE's. Had repeat CTPA and CT of Abd/Pelvis 04/11 which was personally reviewed showed NO resolution of extensive thrombus in both main Pulmonary arteries and nearly all branches, especially those in the RLL and RML. In addition there appears to be progressive disease in his liver with near total replacement of the left lobe with masses. There was increased ascites and evidence for peritioneal carcinomatosis. On 04/11, I spoke at length with Curtis's mother, sister, and father about the results of the CT's and the events of the last 24 hours. We discussed possible options for going forward and I essentially presented 3 different paths. First, I offered that we could continue fully aggressive support, as we are currently, with the expectation that he will eventually of his rapidly growing tumor, possibly within days or a couple weeks. The next option centers on administration of chemotherapy directed at his disseminated tumor along with a jermaine description of the multiple catastrophic complications that could occur as a result and, for which, we would have no effective treatment. These include gastric rupture, hepatic failure, severe GI hemorrhage, tumor lysis, renal failure, ARDS, sepsis, etc. Finally, we discussed withdrawal of Curtis's ventilator and shifting focus to comfort care with the expectation that he would within hours to a few days. I've spoken with Curtis's oncologist, Dr. Suazo, who offered to meet with me and the family later today to give them a full understanding of the choices and likely outcomes. Palliative Care kindly agreed to take part in the discussion as well. I also offered to seek transfer of Curtis to a tertiary center such as if the family wishes to explore that however I told them that I doubted that could offer any additional options that might alter the final outcome. On 04/12, we had another family meeting to discuss prognosis and formulate a plan. Dr. Suazo, Dr. Calvo, Dr. Bourgeois and I met with the family along with nursing staff. We again presented the above 3 options and answered all questions. In addition, we asked the family to consider whether it was appropriate for Curtis to continue on Full Code status. After several hours deliberation, the family reported to me, Dr. Calvo, Dr. Bourgeois and staff that they had decided that 1) they would like for Curtis to begin chemo and 2) his code status should change to DNAR. We repeated the large volume therapeutic paracentesis and removed 6 L thin bile stained ascitic fluid without complications. He completed the first cycle of FOLFOX 04/15 Interval History As of 9 am 04/19, Curtis had tolerated decrease in his O2 to 2L/min by NC when suddenly he had hematemesis and hemoptysis and became severely hypoxemic requiring high flow O2 at 100%. At one point he appeared near with agonal respirations, coma and cyanosis. His argatroban was held. Please see progress notes from 04/19 for full details. Miraculously, he rallied and his SpO2 oscar above 90%. Later in the morning he had a brief generalized tonic-clonic seizure but awoke after an approximate 20 minute post-ictal period. Dr. Green of GI reevaluated Curtis and felt that endoscopy was not appropriate in this case. Flexible rhinoscopy revealed no evidence for epistaxis to explain his bleeding. Over night, Curtis had 2 or 3 more seizures and was started on Keppra, The family has made an informed and thoughtful decision to resume Argatroban which both I and Dr. Suazo support. This morning, Curtis is very weak but awake and alert. He remains tachypneic and tachycardic with coarse respirations. He nods to some questions but does not speak to me. He has had no further seizures since being loaded with Keppra and there is no obvious ongoing bleeding. Exam Vital Signs Vital Sign - Last Date Time Temp Pulse Resp B/P Pulse Ox O2 Delivery O2 Flow Rate FiO2 04/20/17 08:07 146 34 95 Nasal Cannula 50 80 04/20/17 07:54 38.3 115/65 Intake and Output 04/19/17 04/19/17 04/20/17 Cumulative From/Thru 15:00 23:00 07:00 04/03/17 07:34 - 04/20/17 05:04 Intake Total 1563 ml 1752 ml 37439 ml Output Total 1250 ml 975 ml 46842 ml Balance 313 ml 777 ml 04127 ml Intake Oral 1076 ml 1776 ml IV Total 254 ml 676 ml 69535 ml Tube Feeding 1407 ml TPN/PPN 1309 ml 94323 ml Packed Cells 351 ml Tube Irrigant 480 ml Output Urine Total 1250 ml 975 ml 02957 ml Gastric Drainage Total 1335 ml Drainage Total 26614 ml Other 0 ml 1615 ml # Bowel Movements 2 6 Exam Pale gaunt young man who appears apprehensive and very weak Tm 100F, SpO2 94% on FiO2 0.8 Lungs Diffuse coarse crackles, NO wheezes, rhonchi CV RRR, no m/g/r Abd Firmer compared to yesterday, NO BTs today, Not obviously tender Ext Warm, pale, 2 + LE edema to the knees Neuro Pupils 8 mm and equal, gaze appears conjugate and face is symmetric. Moves upper extremities purposefully but has some dysmetria. No tremor or clonus. IVs and Medications Medications Reviewed: Medications were reviewed in detail Lab and Diagnostics Personally reviewed in detail Result Diagram: 04/20/1764404/20/17644 Microbiology Bronchial washing grew MSSA 04/09 X-Rays, CTs and MRIs CT ANGIO CHEST PULMONARY EMBOLISM 1. Slight decrease in severe pulmonary embolic disease with resolution of the previously seen saddle embolus spanning the main pulmonary artery bifurcation. However, significant embolic burden remains bilaterally. 2. Improved aeration of the left lower lobe. Decreased right lower lobe pneumonia. 3. Moderate ascites and severe hepatic metastatic disease. 4. Healing left rib fractures. 5. Gastroesophageal reflux. Dictated by: Landon Noel M.D. on 04/11/2017 at 10:12 CT ABDOMEN AND PELVIS WITH CONTRAST 1. Interval increased amount of large abdominal and pelvic ascites, presumably from peritoneal carcinomatosis. 2. Numerous variably sized hepatic metastases again noted, most confluent in the left hepatic lobe. 3. 6.4 x 5.5 x 3.5 cm left pelvic cystic lesion appears to arise from the left seminal vesicle. 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 4. Small bibasilar mobile pleural effusions, with associated compressive atelectasis. Dictated by: Moisés Brasher M.D. on 04/11/2017 at 10:32 Chest x-ray Stable pulmonary venous engorgement and support devices. Dictated by: New Powers M.D. on 04/03/2017 at 11:01 CT angiogram 1. Multiple, bilateral large pulmonary emboli. 2. Flattening of the cardiac interventricular septum suggesting right heart strain. 3. Hepatic metastatic disease. 4. Findings telephoned to Dr. Nathan Paz on 04/03/17 at 0817 hrs. Dictated by: Louisa Jones MD, PhD on 04/03/2017 at 8:13 Chest x-ray 1. Endotracheal tube and nasogastric tube positioned as described. 2. Mild cardiomegaly and moderate vascular congestion. Dictated by: Tristin Mckenzie M.D. on 04/03/2017 at 9:55 Chest x-ray 1. Endotracheal tube is positioned at the thoracic inlet. 2. Mild cardiomegaly and vascular congestion is similar to the prior study. Dictated by: Tristin Mckenzie M.D. on 04/03/2017 at 10:03 US ABDOMEN IMPRESSION: 4 quadrant mild ascites noted, growing mass lesions throughout the liver parenchyma. Nonvisualization of the left kidney due to overlying bowel gas and inability of the patient to fully cooperate with positioning and breath holding. Dictated by: Donnie Harrington M.D. on 04/10/2017 CT ANGIO CHEST PULMONARY EMBOLISM IMPRESSION: 1. Slight decrease in severe pulmonary embolic disease with resolution of the previously seen saddle embolus spanning the main pulmonary artery bifurcation. However, significant embolic burden remains bilaterally. 2. Improved aeration of the left lower lobe. Decreased right lower lobe pneumonia. 3. Moderate ascites and severe hepatic metastatic disease. 4. Healing left rib fractures. 5. Gastroesophageal reflux. Dictated by: Landon Noel M.D. on 04/11/2017 CT ABDOMEN AND PELVIS WITH CONTRAST IMPRESSION: 1. Interval increased amount of large abdominal and pelvic ascites, presumably from peritoneal carcinomatosis. 2. Numerous variably sized hepatic metastases again noted, most confluent in the left hepatic lobe. 3. 6.4 x 5.5 x 3.5 cm left pelvic cystic lesion appears to arise from the left seminal vesicle. 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 4. Small bibasilar mobile pleural effusions, with associated compressive atelectasis. Dictated by: Moisés Brasher M.D. on 04/11/2017 X-RAY CHEST ONE VIEW, PORTABLE IMPRESSION: 1. Support tubes appear in place. PICC line appears to be in the atrium 2. Mild right lower lobe interstitial infiltrate. Persistent left lower lobe consolidation. Small left pleural effusion. Findings compatible with pneumonia/ aspiration. Dictated by: David Greer M.D. on 04/13/2017 X-RAY CHEST ONE VIEW, PORTABLE IMPRESSION: Stable chest. Dictated by: Paul Nieves M.D. on 04/14/2017 X-RAY CHEST ONE VIEW, PORTABLE IMPRESSION: 1. Asymmetric pulmonary edema with superimposed bibasilar pneumonia. Dictated by: Paul Nieves M.D. on 04/14/2017 X-RAY CHEST ONE VIEW, PORTABLE IMPRESSION: 1. Stable right basilar infiltrates. Improving left lower lobe volume loss. 2. Stable support devices. Dictated by: New Powers M.D. on 04/15/2017 X-RAY CHEST ONE VIEW, PORTABLE IMPRESSION: Bilateral pulmonary airspace opacities similar to prior examination suggesting bilateral aspiration versus pneumonia. Dictated by: Jak Ortiz RRA Interpreted: Paul Nieves MD on 04/16/2017 Cardiac Echo Impressions Interpretation Summary Severely dilated right ventricle with moderate to severely reduced systolic function. Thrombus is visualized in the right ventricle. There is a catheter seen in the right atrium. Comparison is made with the echocardiogram of 04/03/2017, right ventricle size has decreased slightly. Electronically signed by: Karishma Morrow on Reading Physician:04/05/2017 02:03 PM . Additional Diagnostics PROCEDURE: US ABDOMEN FINDINGS: Liver: Liver is enlarged in size and heterogeneous in echotexture with multiple hepatic mass lesions previously identified again seen, having enlarged in size from the comparison ultrasound 03/07/17 and the largest measures up to 5.5 x 5.0 x 4.3 cm. Gallbladder: The gallbladder watts just above the upper limits of normal at 3.1 mm, and appears to contain sludge. A small amount of adjacent free fluid can be seen. Biliary ducts: Intrahepatic bile ducts are non-dilated. Extrahepatic bile duct caliber measures 3.5 mm. Normal is 6-7 mm or less in diameter, or 10 mm or less post-cholecystectomy. Pancreas: Visualized portions of the pancreas are sonographically normal. Spleen: Spleen is normal in size and homogeneous in echotexture. Kidneys: The right kidney is normal in size and echotexture. Right kidney measures 16.3 cm long; left kidney could not be seen. No solid masses. Aorta: Visualized aorta is normal in caliber at less than 3 cm. Iliacs: Proximal common iliac arteries are normal in caliber at less than 2.5 cm. IVC: Intrahepatic inferior vena cava is patent. Miscellaneous: There is mild for quadrant abdominal free fluid. IMPRESSION: 4 quadrant mild ascites noted, growing mass lesions throughout the liver parenchyma. Nonvisualization of the left kidney due to overlying bowel gas and inability of the patient to fully cooperate with positioning and breath holding. Dictated by: Donnie Harrington M.D. 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 He is receiving Ertapenem for a MSSA pneumonia and as empiric coverage for intrabdominal sepsis. He began FOLFOX 04/13 and completed 1st cycle 04/15. IMP Resp failure Multifactorial with massive PE, LLL PNA and marked abdominal distension all contributing. In addition, now he has aspirated blood from the nearly fatal event yesterday morning. There was NO radiographic resolution of his extensive bilateral PE's despite EKOS and systemic anticoagulation with heparin and argatroban now. His tense ascites has been drained x4 but is anticipated to reaccumulate, hopefully more slowly. His FiO2 has remained stable and he has tolerated transition to simple NC. He is now extubated but very weak. Completed 10 days ertapenem but he has a low grade fever today and his WBC has doubled His CXR shows worsening reticulonodular infiltrates in the RML and RLL with stable retrocardiac consolidation/atelectasis. . PE Bilat Massive PE. Had RV pressure overload on echo but no radiographic improvement after EKOS and anticoagulation on followup CTs. Possible that all material in pulmonary circulation is not thrombosis but instead some degree of tumor emboli given extent of hepatic involvement. He is undoubtably thrombophilic due to his advanced gastric cancer. Systemic thrombolysis, even at reduced dose not a safe option given his history of Gastric tumor and recent GI bleeds requiring transfusion. An attempt at catheter directed therapy with EKOS did not succeed and surgical thrombectomy is not a consideration given his primary diagnosis and exceeding grim prognosis based on that. Family has decided to resume the Argatroban gtt. 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 His repeat ATIII level was slightly low and LMWH might be an option but a NOAC such as dabigatran might be a better choice. Confusion, lethargy He is not interactive and appears withdrawn. He has mydriasis but this might represent opiate withdrawal as he was on large doses of continuous infusion fentanyl for nearly 2 weeks. He seemed to worsen after receiving a dose of Seroguel which raises the possibility of serotonin syndrome which would explain his dilated pupils but he has no other findings we would expect such as rigidity and clonus. PRES has been reported a complication of many types of chemotherapy including oxiplatin but would require a MRI for diagnosis. His ammonia level was normal. His neuro exam is entirely non focal and non-lateralizing. We have considered whether his altered neuro status and seizures might be due to intracerebral bleeding in this patient on Argatroban. I think this is unlikely given his exam and seizures would be an unusual presentation of intracerebral hemorrhage which I would expect to have stopped spontaneously. Furthermore, he will soon from thromboemboli if his anticoagulation is stopped for long and he is obviously not a candidate for craniotomy even if he were proven to have ICH. Could have a new CVA due to paradoxical mechanism given his massive PE and elevated PA pressures. Gastric CA HER 2 negative and he has completed cycle of FOLFOX with dose reduction. His uric acid and phosphorus are stable or improved while his potassium is elevated today. TPN will be adjusted. His family decided to begin chemotherapy and have been fully and repeatedly informed of the significant risks for catastrophic complications for which there may be no effective treatment. In the event of a cardiac arrest, he is now DNAR / DNI and this was reaffirmed with his family on 04/16. . Ascites A reflection of his elevated RV pressure and hypoalbuminemia along with direct tumor involvement. Improved after 6 L removed 04/12 and 04/15 and today. Given total 50 gms albumin following the last procedure. Hyperglycemia TPN, Decadron and stress all contribute. Adjusted SQ sliding scale, Can add insulin to TPN if daily requirement excessive. 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 For now renal fxn and UOP are adequate and there is no indication for renal replacement. New onset seizures No further seizures after starting Keppra. Possible causes include cerebral metastasis from his gastric CA, sedative drug withdrawal and altered seizure threshold from some of his medications. Too unstable now to undergo brain CT as he is requiring FiO2 of 80% and could not lie supine. Bang Mathis Documented family history and almost certainly the cause of his advanced gastric adenocarcinoma REC FOLFOX per Oncology, Filgrastim if WBC dips. serial metabolic labs Keppra Hold all psychoactive meds Ammonia level Neuroimaging if he could tolerate Panculture and empirica Abx per ID Repeat therapeutic large volume paracentesis repeated as needed Decadron for adjunctive pain treatment and for possibility of cerebral metastasis TPN Argatroban gtt to be resumed at family request GI prophylaxis with BID PPI IV. DNAR / DNI Pain Evaluation: Adequate Pain Control GI Prophylaxis: Proton Pump Inhibitor VTE Prophylaxis: Other (Argatroban ggt) Resuscitation Status: DNR/DNI:Do Not Resuscitate/Intubate (max support but DNR) Time spent One hour and 10 minutes critical care exclusive of shared time and procedures. Dony Vega MD Apr 20, 2017 09:46 Bilateral popliteal DVT, POA and active. - Pt diagnosed with bilateral large DVTs 3 weeks ago, placed on Lovenox at home with possible missed doses - Currently therapeutic on Argatroban Hyperbilirubinemia, new and active. - Bilirubin and Alkaline phos trending up; scleral icterus on exam; likely secondary to hepatic metastases. - Abdominal and pelvis CT shows growing mass lesions throughout liver parenchyma Constipation. Present on admission, resolved -Currently having multiple bowel movements without difficulty Malnutrition. Ongoing -Nutrition following, TPN started with concentrated formula Electrolytes abnormalities, new and active. -Per ICU note: - Hypernatremia: Na level gradually trending up. Discussed with pharmacy about replacing the NS in his medications to D5W. Will also increase free water in his TPA - Hyperglycemia: multifactorial from TPN, Decadron and stress. Adjusted SQ sliding scale. Can add insulin to TPN if daily requirement excessive. Solitary kidney, chronic. 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 For now renal fxn and UOP are adequate. Will continue to monitor. Patient is on PPO BID for GI prophylaxis. He is on Argatroban ggt for PE, which is therapeutic. Patient Status: Patient remains in ICU. GI Prophylaxis: Proton Pump Inhibitor VTE Prophylaxis: Other (Argatroban ggt) Resuscitation Status: DNR/DNI:Do Not Resuscitate/Intubate (max support but DNR) GI Prophylaxis: Proton Pump Inhibitor VTE Prophylaxis: Other (Argatroban ggt) Resuscitation Status: DNR/DNI:Do Not Resuscitate/Intubate (max support but DNR) Dony Vega MD Apr 20, 2017 09:46
[2017-04-20] MEDS: ARGATROBAN IV SCH ×2 (10:35)
[2017-04-20] MEDS: SODIUM CHLORIDE IV SCH ×2 (10:35)
--- NOTE | 2017-04-20 10:42 | NUR ---
NUTRITION FOLLOW-UP: ASSESS: 27 YO male with recent diagnosis of gastric adenocarcinoma with hepatic and peritoneal metastases admitted with massive PE and respiratory failure. Has had trial of EKOS 04/03 but repeat CTPA 04/05 showed minimal resolution of his bilateral PE's. Patient was extubated 04/16 but remains encephalopathic, now having recurrent seizure activity. He remains NPO after an episode of bloody emesis yesterday, during which he aspirated but is receiving TPN that is meeting approximately 85% of his nutrient needs. Received authorization today during CCU rounds to increase the macronutrients in the TPN to meet approx. 100% nutrient needs. PMHx: Metastatic gastric cancer, upper GI bleed, liver biopsy, Peutz-Jeghers syndrome, LE DVT. DIET: NPO x 17 D. ENTERAL FEEDING: OFF TPN: 300 g Dex, 120 g AA, 50 g lipids providing 2000 kcal, 120 g protein, meeting approx. 85% nutrient needs. LABS: Reviewed. Na 148, Chloride 119, BUN 48, Cr 0.52, Glu 172, A1c 5.5, Ca 8.3, Total Biili 5.2, AST 196, ALT 150, Alk Phos 626, Alb 2.1, Lipase 120. MEDICATIONS: Reviewed. Insulin, Decadron, MS Contin, Ativan, Keppra, Argatroban. GI: BM x 2 yesterday. SKIN: No issues reported. ANTHROPOMETRICS: Current Wt: 71.1 kg, BMI 17.0 kg/m2. Admit weight: 81.0, IBW: 100 kg (81% IBW) ESTIMATED NEEDS (CANCER): Calories: 9072-4046 kcal/day (25-30 kcal/kg BW) Protein: 80-120 g/day (1.0-1.5 g/kg BW) Fluid: Approx. 2425 mL (30mL/kg BW) NUTRITION DIAGNOSIS: 1) Inadequate oral intake related to altered GI function, as evidenced by NPO/vent status, enteral feeding on hold - IMPROVED WITH TPN ADVANCED TO GOAL MACRONUTRIENT PROVISION. 2) Increased nutrient needs related to cancer, as evidenced by new gastric cancer w/ liver mets, 81% IBW, with continued weight loss - PERSISTS. INTERVENTION: 1) TPN to advance today to goal of 120 g AA, 350 g Dex, 60 g lipids to provide 2270 kcal, 120 g protein; meeting 100% calorie/protein needs. 2) Diet advancement per speech therapy. MONITOR/EVALUATE: PO intake, diet tolerance/advance, TPN tolerance, labs, weight, POC, GI/nutrition status. Follow per high nutrition risk guidelines.
--- NOTE | 2017-04-20 11:33 | PCM.PHAPRO ---
Progress TPN TPN#11 I. Fluid balance/HD a/ Hypovolemic hypernatremia. p/ Continue free water TPN, vascular repletion per pulmonology II. Chem Trends of hepatic indices continues. Somewhat concerning TPN may play into this, particularly if excessive KCAL or Lipids p/ consider III. Glucose Generally < 150 p/ Continue 14 units in mix IV. Macronutrients At goal of 2270 kcal/day ~ 30kcal/kg PARENTERAL NUTRITION ORDERS 11 20-Apr-17 Standard Hang Time: 2100 Substrates Total kcal: 2270 AMINO ACIDS 120 g DEXTROSE 350 g Total Volume (mL): 2500 LIPIDS 60 g Sterile Water for Injection mL To Infuse Over (hrs): 24 Total Volume 2500 mL At at a rate of (mL/hr): 104 Additives Sodium Chloride 0 mEq "typical" daily requirements Sodium Acetate 0 mEq Sodium 50-120mEq Potassium Chloride 20 mEq Potassium 60-120mEq Potassium Phosphate 40 mEq Phosphate 20-40mEq Calcium Gluconate 9.3 mEq Magnesium 8-32mEq Magnesium Sulfate 12 mEq Calcium 9-22mEq POTASSIUM ACETATE 30 Acetate* 80-120mEq Chloride* 80-120mEq Regular Insulin 14 units *Depending on acid-base status Famotidine mg Multivitamins 1 std dose Insulin Regimen Trace Elements 1 std dose none Thiamine mg Regular Low Intensity Subcut Folic Acid mg Regular Medium Intensity Subcut Ascorbic Acid mg Regular High Intensity Subcut Regular Insulin Infusion Other: Special Instructions: To be infused via central line only. For delay or inturruption of TPN contact the pharmacist for alternative replacement solution. Signature Date: DREA PELAYO [address] [facility] Joshua Floyd Pharm D Apr 20, 2017 11:33
[2017-04-20] MEDS: Dextrose 5% 1,000 ML IV SCH ×2 (12:25→23:34)
--- NOTE | 2017-04-20 16:32 | NUR ---
spiritual care: staff caring visit--pt and family. mother and sister in room, pt awake, seemingly following tone of conversation. per family, pt is restoration, connected at a [facility], has expressed interest in other's felicia and family welcoming of prayer/support. will follow as needed.
--- NOTE | 2017-04-20 17:06 | DRSVH ---
PROCEDURE: X-RAY CHEST ONE VIEW, PORTABLE ([id number]) INDICATIONS: respiratory failure TECHNIQUE: One view of the chest was acquired. COMPARISON: [facility], CR, XR CHEST 1VW (PORTABLE), 04/19/2017, 9:26. FINDINGS: Surgical changes and devices: Stable position of left PICC. Lungs and pleura: Persistent mid lung and basilar air space opacity redemonstrated, more consolidated involving the left lung base which appears similar to prior examination. Small pleural effusions. No pneumothorax. Mediastinum: Mediastinal contours appear normal. Heart size is normal. Bones and chest wall: No suspicious bony lesions. Overlying soft tissues appear unremarkable. IMPRESSION: Persistent airspace opacity involving the mid lungs and the lung bases suspicious for lloyd ateral pneumonia. Dictated by: Jak Ortiz [facility] Interpreted: Mayela Chavez MD on 04/20/2017 at 9:16 Approved by: Mayela Chavez M.D. on 04/20/2017 at 17:04
--- NOTE | 2017-04-20 18:05 | NUR ---
Mentation/pain/respiratory Pt continues to be alert and oriented to self and family. Cannot verbally express words very well but can say "yes and no" clearly and indicate if he is in pain or uncomfortable. Pt denied any abd pain or N&V today, but at one point had some back discomfort which seemed to be relieved with repositioning and 1mg IV dilaudid. Pt febrile in AM but temp normothermic rest of the shift. HR ST 120s-140s, occ PVC. Pt coarse breath sounds throughout with weak cough, helping assist with oral suction and oral care. no ice chips given, but frequent oral swabs with ice water. Frequent rounding, q2h turns and oral care continue. Family at bedside assisting with care.
--- NOTE | 2017-04-20 18:52 | PCM.PNMED ---
Subjective Date of Service Apr 20, 2017 Subjective Yesterday patient had hematemesis and hemoptysis coming hypoxemia requiring increased O2. Today Gaucher. Restarted, no return of seizure-like activity since Keppra initiation. Exam Vital Signs Vital Sign - Last Date Time Temp Pulse Resp B/P Pulse Ox O2 Delivery O2 Flow Rate FiO2 04/20/17 16:00 37.0 127 31 121/67 95 high flow 70 04/20/17 15:24 50 Intake and Output 04/19/17 04/19/17 04/20/17 Cumulative From/Thru 15:00 23:00 07:00 04/03/17 07:34 - 04/20/17 05:04 Intake Total 1563 ml 1752 ml 50890 ml Output Total 1250 ml 975 ml 68106 ml Balance 313 ml 777 ml 66992 ml Intake Oral 1076 ml 1776 ml IV Total 254 ml 676 ml 15100 ml Tube Feeding 1407 ml TPN/PPN 1309 ml 85050 ml Packed Cells 351 ml Tube Irrigant 480 ml Output Urine Total 1250 ml 975 ml 21601 ml Gastric Drainage Total 1335 ml Drainage Total 40957 ml Other 0 ml 1615 ml # Bowel Movements 2 6 Exam General: Awake, sitting up in hospital bed in no acute distress, thin and frail appearing. Minimally interactive HEENT: Normocephalic, atraumatic. PERRL Neck: Supple with full range of motion. Cardiovascular: Regular rate and rhythm with no murmurs Pulmonary: Bilateral expiratory rales and rhonchi. Increased respiratory effort Abdomen: Firm to palpation, distended. Extremities: Bilateral lower extremity pitting edema to mid tibial area. Neurological: Cranial nerves grossly intact Lab and Diagnostics Result Diagram: 04/20/17 0645 04/20/17 0645 Microbiology Bronchial washing grew MSSA 04/09 X-Rays, CTs and MRIs CT ANGIO CHEST PULMONARY EMBOLISM 1. Slight decrease in severe pulmonary embolic disease with resolution of the previously seen saddle embolus spanning the main pulmonary artery bifurcation. However, significant embolic burden remains bilaterally. 2. Improved aeration of the left lower lobe. Decreased right lower lobe pneumonia. 3. Moderate ascites and severe hepatic metastatic disease. 4. Healing left rib fractures. 5. Gastroesophageal reflux. Dictated by: Landon Noel M.D. on 04/11/2017 at 10:12 CT ABDOMEN AND PELVIS WITH CONTRAST 1. Interval increased amount of large abdominal and pelvic ascites, presumably from peritoneal carcinomatosis. 2. Numerous variably sized hepatic metastases again noted, most confluent in the left hepatic lobe. 3. 6.4 x 5.5 x 3.5 cm left pelvic cystic lesion appears to arise from the left seminal vesicle. 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 4. Small bibasilar mobile pleural effusions, with associated compressive atelectasis. Dictated by: Moisés Brasher M.D. on 04/11/2017 at 10:32 Chest x-ray Stable pulmonary venous engorgement and support devices. Dictated by: New Powers M.D. on 04/03/2017 at 11:01 CT angiogram 1. Multiple, bilateral large pulmonary emboli. 2. Flattening of the cardiac interventricular septum suggesting right heart strain. 3. Hepatic metastatic disease. 4. Findings telephoned to Dr. Nathan Paz on 04/03/17 at 0817 hrs. Dictated by: Louisa Jones MD, PhD on 04/03/2017 at 8:13 Chest x-ray 1. Endotracheal tube and nasogastric tube positioned as described. 2. Mild cardiomegaly and moderate vascular congestion. Dictated by: Tristin Mckenzie M.D. on 04/03/2017 at 9:55 Chest x-ray 1. Endotracheal tube is positioned at the thoracic inlet. 2. Mild cardiomegaly and vascular congestion is similar to the prior study. Dictated by: Tristin Mckenzie M.D. on 04/03/2017 at 10:03 US ABDOMEN IMPRESSION: 4 quadrant mild ascites noted, growing mass lesions throughout the liver parenchyma. Nonvisualization of the left kidney due to overlying bowel gas and inability of the patient to fully cooperate with positioning and breath holding. Dictated by: Donnie Harrington M.D. on 04/10/2017 CT ANGIO CHEST PULMONARY EMBOLISM IMPRESSION: 1. Slight decrease in severe pulmonary embolic disease with resolution of the previously seen saddle embolus spanning the main pulmonary artery bifurcation. However, significant embolic burden remains bilaterally. 2. Improved aeration of the left lower lobe. Decreased right lower lobe pneumonia. 3. Moderate ascites and severe hepatic metastatic disease. 4. Healing left rib fractures. 5. Gastroesophageal reflux. Dictated by: Landon Noel M.D. on 04/11/2017 CT ABDOMEN AND PELVIS WITH CONTRAST IMPRESSION: 1. Interval increased amount of large abdominal and pelvic ascites, presumably from peritoneal carcinomatosis. 2. Numerous variably sized hepatic metastases again noted, most confluent in the left hepatic lobe. 3. 6.4 x 5.5 x 3.5 cm left pelvic cystic lesion appears to arise from the left seminal vesicle. 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 4. Small bibasilar mobile pleural effusions, with associated compressive atelectasis. Dictated by: Moisés Brasher M.D. on 04/11/2017 X-RAY CHEST ONE VIEW, PORTABLE IMPRESSION: 1. Support tubes appear in place. PICC line appears to be in the atrium 2. Mild right lower lobe interstitial infiltrate. Persistent left lower lobe consolidation. Small left pleural effusion. Findings compatible with pneumonia/ aspiration. Dictated by: David Greer M.D. on 04/13/2017 X-RAY CHEST ONE VIEW, PORTABLE IMPRESSION: Stable chest. Dictated by: Paul Nieves M.D. on 04/14/2017 X-RAY CHEST ONE VIEW, PORTABLE IMPRESSION: 1. Asymmetric pulmonary edema with superimposed bibasilar pneumonia. Dictated by: Paul Nieves M.D. on 04/14/2017 X-RAY CHEST ONE VIEW, PORTABLE IMPRESSION: 1. Stable right basilar infiltrates. Improving left lower lobe volume loss. 2. Stable support devices. Dictated by: New Powers M.D. on 04/15/2017 X-RAY CHEST ONE VIEW, PORTABLE IMPRESSION: Bilateral pulmonary airspace opacities similar to prior examination suggesting bilateral aspiration versus pneumonia. Dictated by: Jak Ortiz RRA Interpreted: Paul Nieves MD on 04/16/2017 Cardiac Echo Impressions Interpretation Summary Severely dilated right ventricle with moderate to severely reduced systolic function. Thrombus is visualized in the right ventricle. There is a catheter seen in the right atrium. Comparison is made with the echocardiogram of 04/03/2017, right ventricle size has decreased slightly. Electronically signed by: Karishma Morrow on Reading Physician:04/05/2017 02:03 PM . Additional Diagnostics PROCEDURE: US ABDOMEN FINDINGS: Liver: Liver is enlarged in size and heterogeneous in echotexture with multiple hepatic mass lesions previously identified again seen, having enlarged in size from the comparison ultrasound 03/07/17 and the largest measures up to 5.5 x 5.0 x 4.3 cm. Gallbladder: The gallbladder watts just above the upper limits of normal at 3.1 mm, and appears to contain sludge. A small amount of adjacent free fluid can be seen. Biliary ducts: Intrahepatic bile ducts are non-dilated. Extrahepatic bile duct caliber measures 3.5 mm. Normal is 6-7 mm or less in diameter, or 10 mm or less post-cholecystectomy. Pancreas: Visualized portions of the pancreas are sonographically normal. Spleen: Spleen is normal in size and homogeneous in echotexture. Kidneys: The right kidney is normal in size and echotexture. Right kidney measures 16.3 cm long; left kidney could not be seen. No solid masses. Aorta: Visualized aorta is normal in caliber at less than 3 cm. Iliacs: Proximal common iliac arteries are normal in caliber at less than 2.5 cm. IVC: Intrahepatic inferior vena cava is patent. Miscellaneous: There is mild for quadrant abdominal free fluid. IMPRESSION: 4 quadrant mild ascites noted, growing mass lesions throughout the liver parenchyma. Nonvisualization of the left kidney due to overlying bowel gas and inability of the patient to fully cooperate with positioning and breath holding. Dictated by: Donnie Harrington M.D. on 04/10/2017 at 11:07 Assessment & Plan Recurrent upper GI bleed with limited hematemesis. Improved. -No recurrence. -Continue to follow clinically with H&H -Anticoagulation restarted Probable recurrent blood aspiration. Improved. -Titrate oxygen as needed and follow clinically. New onset seizure, resolved Possible causes cerebral metastasis from gastric cancer, -No recurrence of seizure-like activity status post Keppra administration last night -Continue Keppra Septic encephalopathy, new and active. -Post likely secondary to ongoing polypharmacy and interactions thereof. -Fentanyl has been weaned, patient is now receiving MS Contin. The patient continues to have altered sleep cycles. Ongoing Massive bilateral pulmonary emboli with obstructive shock, acute. Slowly improving. -There has been no radiographic improvement with bilateral PEs which have been refractory to EKOS and systemic anticoagulation, possibly suspected PEs are in fact tumor emboli. -Confirmed home dose of Lovenox 80 mg daily, most likely missing intermittent dosing prior to admission -Repeat CT shows unchanged clot burden despite treatment with tPA and EKOS 3, possible this is secondary to tumor emboli -Probable lysis not an option secondary to primary diagnosis of gastric tumor and prognosis -Continue with Argatroban drip, monitor PTT level -Patient extubated on 04/16/2017 -Agatroban restarted today Acute hypoxic respiratory failure, POA, active and slightly worsened this morning with aspiration. -ICU/pulmonology team following greatly appreciated recommendations and treatment direction. - Multiple possibilities including pneumonia, PE, tumor emboli, mucous plugging - Bronchoscopy 2 with removal of mucous plug - Extubated 04/16/2017, maintains O2 saturation with high flow O2 continue to wean as tolerated - Patient remained somewhat anxious current meds include olanzapine 2.5mg Q12H and PRN Lorazepam 0.25-0.5mg IV. - Continue to taper off Precedex and fentanyl - Continue chips and sips awaiting speech - Family does not desire reintubation Gastric adenocarcinoma, present on admission. Ongoing, status post 1 cycle of chemotherapy. -ICU team continues management for patient and care plan. Their time and expertise is greatly appreciated -Collagen following patient -HER-2 negative -Chemotherapy initiated FOLFOX per oncology -Suspicion for tumor lysis syndrome with rising phosphate, uric acid and decrease in bicarbonate. -We will continue to monitor - overlaying grim prognosis Pneumonia (MSSA), not present on admission, improving. -Bronchial washing showed staph aureus, resistant to erythromycin. The patient also has had evidence of left lower lobe collapse likely from secretions. e -Pro calcitonin continues to trend up though in the setting of liver metastasis unreliable, we will stop following this value -WBC continues to trend down, remains afebrile -ID following, recommendations appreciated -Ertapenem started 04/10/2017, now completed 10 days with low-grade fever and increasing white count -Chest x-ray shows worsening reticulonodular infiltrates -Bronchoscopy as above -Continue to monitor Sepsis secondary to HCAP. Acute and improving. -Most likely MSSA pneumonia, confirmed by bronchoscopy and lavage -CT angio showed bilateral pleural effusions, worsening bibasilar pneumonia pattern, greater on the left than the right. -WBC trending down, afebrile -No longer following Pro calcitonin in the setting of hepatic metastases -Infectious disease following -Antibiotics as above -No vasopressor requirements Anasarca, new and active. 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 The patient has significant volume overload from resuscitation. We will continue to monitor and diuresis as able. -Large volume paracentesis 3 -Albumin replacement -Ascitic fluid shows exudate -Urinary output remains adequate -Continue to monitor, most likely repeat paracentesis Acute iron deficiency anemia. Stable. - Secondary to hemodilution from aggressive fluid resuscitation. Possibly secondary to GI bleed from malignant gastric ulcers, but no sign of acute bleed at this time. Hb has been stable, so will switch from PPI drip to BID. - PRBCs on hold. Transfuse for HB <8. - Check H&H daily - Protonix 40 mg IV BID - Monitor for signs of acute bleeding Bilateral popliteal DVT, POA and active. - Pt diagnosed with bilateral large DVTs 3 weeks ago, placed on Lovenox at home with possible missed doses - Currently therapeutic on Argatroban Hyperbilirubinemia, new and active. - Bilirubin and Alkaline phos trending up; scleral icterus on exam; likely secondary to hepatic metastases. - Abdominal and pelvis CT shows growing mass lesions throughout liver parenchyma Hyperglycemia -TPN, Decadron and stress all contribute. Adjusted SQ sliding scale, Can add insulin to TPN if daily requirement excessive. Constipation. Present on admission, resolved -Currently having multiple bowel movements without difficulty Malnutrition. Ongoing -Nutrition following, TPN started with concentrated formula Electrolytes abnormalities, new and active. -Per ICU note: - Hypernatremia: Na level gradually trending up. Discussed with pharmacy about replacing the NS in his medications to D5W. Will also increase free water in his TPA - Hyperglycemia: multifactorial from TPN, Decadron and stress. Adjusted SQ sliding scale. Can add insulin to TPN if daily requirement excessive. Solitary kidney, chronic. 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 For now renal fxn and UOP are adequate. Will continue to monitor. Patient is on PPO BID for GI prophylaxis. He is on Argatroban ggt for PE, which is therapeutic. Patient Status: Patient remains in ICU. GI Prophylaxis: Proton Pump Inhibitor VTE Prophylaxis: Other (Argatroban ggt) Resuscitation Status: DNR/DNI:Do Not Resuscitate/Intubate (max support but DNR) Attending Statement The patient was seen and examined together with Dr. Huizar on the first and I agree with the history, exam findings, and plan as outlined in the note above. I did participate in all aspects of the services provided today, including documentation and the plan of care. We will continue with anticoagulation for pulmonary embolism and support for his acute respiratory failure with hypoxia. The patient continues to be clinically very tenuous with a guarded prognosis. BRICE HUIZAR DO Apr 20, 2017 18:20 Yaakov Fabian MD Apr 21, 2017 07:25
[2017-04-20] MEDS: Total Parenteral Nutrition 1 BAG IV SCH (20:53)
[2017-04-20] MEDS: TPN Per Pharmacist XX SCH (20:54)
--- NOTE | 2017-04-20 21:58 | PCM.PHAPRO ---
Progress Requesting Provider: Rosa Mirza MD PTT=52 Continue current rate. Next PTT 2330. Renetta Eaton [facility] Apr 20, 2017 21:58
[2017-04-21] VITALS (10 sets, daily range): BP systolic 89–118; BP diastolic 60–71; PULSE 134–147; RESP 26–38; O2SAT 91–100
[2017-04-21] MEDS: Morphine 2 mg/mL 5 mL Oral Solution PO SCH ×4 (01:50→20:28)
[2017-04-21] MEDS: Piperacillin-Tazo 3.375 Gm Inj 3.375 GM in Dextrose 5% Minibag Plus 50 ML IV SCH ×4 (02:01→20:06)
[2017-04-21] MEDS: Insulin Human REGular 300 Unit/3 mL Inj SUBQ SCH ×4 (02:25→20:28)
--- NOTE | 2017-04-21 06:38 | NUR ---
PTT / rest / resp PTTs Q3 hours overnight. Pharmacists notified with results. Per Renetta goal range for pt is 42-84. No changes made over night. Next draw at 0830. Patient has small amount of dried blood beneath high flow cannula x1. No other signs of bleeding noted. Patient sleeps very little on seat joiner. Doses intermittently from 5947-5049, mostly awake. Ativan given for restlessness when patient would not stop pulling the high flow off of his nose. Ativan effective and he no longer pulls on cannula or other lines. No change to RR after dose. Patient medicated x2 with PRN Dilaudid for pain. Denies pain otherwise. Declines scheduled medication. Family reinforces they do not want him to receive scheduled pain meds if he is denying pain. RR mid 20s-30 overnight. Patient appears short of breath but denies it. High flow increased to 90% and 55L. Patient has a very weak cough, oral suction used when he is able, sputum sent to lab. Sputum is brown, sometimes creamy in color. Continue to encourage cough.
[2017-04-21] MEDS: Micafungin Inj 150 MG in 0.9% Sodium Chloride 100 ML IV SCH (08:00)
[2017-04-21] MEDS: Pantoprazole 4 mg/mL 10 mL Inj IVPUSH SCH ×2 (08:30→15:57)
[2017-04-21] MEDS: [UNRECOGNIZED DRUG - REMARK] XX SCH (08:30)
[2017-04-21 09:19] LABS: BASOPHILS % (AUTO) 0 % (0-3); EOSINOPHILS % (AUTO) 0.1 % (0-5); MONOCYTES % (AUTO) 2.3 % (4-12); Mean Corpuscular Hemoglobin 23.3 pg (27.0-35.0); Mean Corpuscular Volume 72.7 fL (81-100); NEUTROPHILS % (AUTO) 93.1 % (40-74); Platelet Count 369 bil/L (150-400)
[2017-04-21] MEDS: Dexamethasone 4 mg/mL Inj IVPUSH SCH (09:19)
--- NOTE | 2017-04-21 09:19 | PCM.PNMED ---
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 Has had trial of EKOS 04/03 but repeat CTPA 04/05showed minimal resolution of his bilat PE's. Had repeat CTPA and CT of Abd/Pelvis 04/11 which was personally reviewed showed NO resolution of extensive thrombus in both main Pulmonary arteries and nearly all branches, especially those in the RLL and RML. In addition there appears to be progressive disease in his liver with near total replacement of the left lobe with masses. There was increased ascites and evidence for peritioneal carcinomatosis. On 04/11, I spoke at length with Curtis's mother, sister, and father about the results of the CT's and the events of the last 24 hours. We discussed possible options for going forward and I essentially presented 3 different paths. First, I offered that we could continue fully aggressive support, as we are currently, with the expectation that he will eventually of his rapidly growing tumor, possibly within days or a couple weeks. The next option centers on administration of chemotherapy directed at his disseminated tumor along with a jermaine description of the multiple catastrophic complications that could occur as a result and, for which, we would have no effective treatment. These include gastric rupture, hepatic failure, severe GI hemorrhage, tumor lysis, renal failure, ARDS, sepsis, etc. Finally, we discussed withdrawal of Curtis's ventilator and shifting focus to comfort care with the expectation that he would within hours to a few days. I've spoken with Curtis's oncologist, Dr. Suazo, who offered to meet with me and the family later today to give them a full understanding of the choices and likely outcomes. Palliative Care kindly agreed to take part in the discussion as well. I also offered to seek transfer of Curtis to a tertiary center such as if the family wishes to explore that however I told them that I doubted that could offer any additional options that might alter the final outcome. On 04/12, we had another family meeting to discuss prognosis and formulate a plan. Dr. Suazo, Dr. Calvo, Dr. Bourgeois and I met with the family along with nursing staff. We again presented the above 3 options and answered all questions. In addition, we asked the family to consider whether it was appropriate for Curtis to continue on Full Code status. After several hours deliberation, the family reported to me, Dr. Calvo, Dr. Bourgeois and staff that they had decided that 1) they would like for Curtis to begin chemo and 2) his code status should change to DNAR. We repeated the large volume therapeutic paracentesis and removed 6 L thin bile stained ascitic fluid without complications. He completed the first cycle of FOLFOX 04/15 As of 9 am 04/19, Curtis had tolerated decrease in his O2 to 2L/min by NC when suddenly he had hematemesis and hemoptysis and became severely hypoxemic requiring high flow O2 at 100%. At one point he appeared near with agonal respirations, coma and cyanosis. His argatroban was held. Please see progress notes from 04/19 for full details. Miraculously, he rallied and his SpO2 oscar above 90%. Later in the morning he had a brief generalized tonic-clonic seizure but awoke after an approximate 20 minute post-ictal period. Dr. Green of GI reevaluated Curtis and felt that endoscopy was not appropriate in this case. Flexible rhinoscopy revealed no evidence for epistaxis to explain his bleeding. Over night on 04/19, Curtis had 2 or 3 more seizures and was started on Keppra, The family has made an informed and thoughtful decision to resume Argatroban which both I and Dr. Suazo support. Interval History This morning, Curtis is much weaker, falling asleep and not responding to questions. His respiratory rate and HR are variable and occasionally dip. He is using accessory muscles to breathe and has require increase in his FiO2 to maintain his SpO2. Exam Vital Signs Vital Sign - Last Date Time Temp Pulse Resp B/P Pulse Ox O2 Delivery O2 Flow Rate FiO2 04/21/17 03:20 Supplement Oxygen 04/21/17 03:12 37.2 134 28 117/70 92 04/21/17 01:59 50 70 Intake and Output 04/20/17 04/20/17 04/21/17 Cumulative From/Thru 15:00 23:00 07:00 04/03/17 07:34 - 04/21/17 06:17 Intake Total 2062 ml 2294 ml 46422 ml Output Total 1500 ml 1000 ml 86491 ml Balance 562 ml 1294 ml 65592 ml Intake Oral 1776 ml IV Total 834 ml 975 ml 65925 ml Tube Feeding 1407 ml TPN/PPN 1228 ml 1319 ml 60156 ml Packed Cells 351 ml Tube Irrigant 480 ml Output Urine Total 1500 ml 1000 ml 46768 ml Gastric Drainage Total 1335 ml Drainage Total 29673 ml Other 1615 ml # Bowel Movements 0 1 7 Exam Pale, gaunt young man using accessory muscles of respiration Lungs Coarse breath sounds throughout, NO wheezes CV Distant HTs, no audible m/g/r although difficult exam due to breath sounds Abd Distended, NO BT's, midepigastric mass Ext warm, 2 + LE edema IVs and Medications Medications Reviewed: Medications were reviewed in detail Lab and Diagnostics Result Diagram: 04/20/1764404/20/17644 Microbiology Bronchial washing grew MSSA 04/09 X-Rays, CTs and MRIs CT ANGIO CHEST PULMONARY EMBOLISM 1. Slight decrease in severe pulmonary embolic disease with resolution of the previously seen saddle embolus spanning the main pulmonary artery bifurcation. However, significant embolic burden remains bilaterally. 2. Improved aeration of the left lower lobe. Decreased right lower lobe pneumonia. 3. Moderate ascites and severe hepatic metastatic disease. 4. Healing left rib fractures. 5. Gastroesophageal reflux. Dictated by: Landon Noel M.D. on 04/11/2017 at 10:12 CT ABDOMEN AND PELVIS WITH CONTRAST 1. Interval increased amount of large abdominal and pelvic ascites, presumably from peritoneal carcinomatosis. 2. Numerous variably sized hepatic metastases again noted, most confluent in the left hepatic lobe. 3. 6.4 x 5.5 x 3.5 cm left pelvic cystic lesion appears to arise from the left seminal vesicle. 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 4. Small bibasilar mobile pleural effusions, with associated compressive atelectasis. Dictated by: Moisés Brasher M.D. on 04/11/2017 at 10:32 Chest x-ray Stable pulmonary venous engorgement and support devices. Dictated by: New Powers M.D. on 04/03/2017 at 11:01 CT angiogram 1. Multiple, bilateral large pulmonary emboli. 2. Flattening of the cardiac interventricular septum suggesting right heart strain. 3. Hepatic metastatic disease. 4. Findings telephoned to Dr. Nathan Paz on 04/03/17 at 0817 hrs. Dictated by: Louisa Jones MD, PhD on 04/03/2017 at 8:13 Chest x-ray 1. Endotracheal tube and nasogastric tube positioned as described. 2. Mild cardiomegaly and moderate vascular congestion. Dictated by: Tristin Mckenzie M.D. on 04/03/2017 at 9:55 Chest x-ray 1. Endotracheal tube is positioned at the thoracic inlet. 2. Mild cardiomegaly and vascular congestion is similar to the prior study. Dictated by: Tristin Mckenzie M.D. on 04/03/2017 at 10:03 US ABDOMEN IMPRESSION: 4 quadrant mild ascites noted, growing mass lesions throughout the liver parenchyma. Nonvisualization of the left kidney due to overlying bowel gas and inability of the patient to fully cooperate with positioning and breath holding. Dictated by: Donnie Harrington M.D. on 04/10/2017 CT ANGIO CHEST PULMONARY EMBOLISM IMPRESSION: 1. Slight decrease in severe pulmonary embolic disease with resolution of the previously seen saddle embolus spanning the main pulmonary artery bifurcation. However, significant embolic burden remains bilaterally. 2. Improved aeration of the left lower lobe. Decreased right lower lobe pneumonia. 3. Moderate ascites and severe hepatic metastatic disease. 4. Healing left rib fractures. 5. Gastroesophageal reflux. Dictated by: Landon Noel M.D. on 04/11/2017 CT ABDOMEN AND PELVIS WITH CONTRAST IMPRESSION: 1. Interval increased amount of large abdominal and pelvic ascites, presumably from peritoneal carcinomatosis. 2. Numerous variably sized hepatic metastases again noted, most confluent in the left hepatic lobe. 3. 6.4 x 5.5 x 3.5 cm left pelvic cystic lesion appears to arise from the left seminal vesicle. 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 4. Small bibasilar mobile pleural effusions, with associated compressive atelectasis. Dictated by: Moisés Brasher M.D. on 04/11/2017 X-RAY CHEST ONE VIEW, PORTABLE IMPRESSION: 1. Support tubes appear in place. PICC line appears to be in the atrium 2. Mild right lower lobe interstitial infiltrate. Persistent left lower lobe consolidation. Small left pleural effusion. Findings compatible with pneumonia/ aspiration. Dictated by: David Greer M.D. on 04/13/2017 X-RAY CHEST ONE VIEW, PORTABLE IMPRESSION: Stable chest. Dictated by: Paul Nieves M.D. on 04/14/2017 X-RAY CHEST ONE VIEW, PORTABLE IMPRESSION: 1. Asymmetric pulmonary edema with superimposed bibasilar pneumonia. Dictated by: Paul Nieves M.D. on 04/14/2017 X-RAY CHEST ONE VIEW, PORTABLE IMPRESSION: 1. Stable right basilar infiltrates. Improving left lower lobe volume loss. 2. Stable support devices. Dictated by: New Powers M.D. on 04/15/2017 X-RAY CHEST ONE VIEW, PORTABLE IMPRESSION: Bilateral pulmonary airspace opacities similar to prior examination suggesting bilateral aspiration versus pneumonia. Dictated by: Jak Ortiz [facility] Interpreted: Paul Nieves MD on 04/16/2017 Cardiac Echo Impressions Interpretation Summary Severely dilated right ventricle with moderate to severely reduced systolic function. Thrombus is visualized in the right ventricle. There is a catheter seen in the right atrium. Comparison is made with the echocardiogram of 04/03/2017, right ventricle size has decreased slightly. Electronically signed by: Karishma Morrow on Reading Physician:04/05/2017 02:03 PM . Additional Diagnostics PROCEDURE: US ABDOMEN FINDINGS: Liver: Liver is enlarged in size and heterogeneous in echotexture with multiple hepatic mass lesions previously identified again seen, having enlarged in size from the comparison ultrasound 03/07/17 and the largest measures up to 5.5 x 5.0 x 4.3 cm. Gallbladder: The gallbladder watts just above the upper limits of normal at 3.1 mm, and appears to contain sludge. A small amount of adjacent free fluid can be seen. Biliary ducts: Intrahepatic bile ducts are non-dilated. Extrahepatic bile duct caliber measures 3.5 mm. Normal is 6-7 mm or less in diameter, or 10 mm or less post-cholecystectomy. Pancreas: Visualized portions of the pancreas are sonographically normal. Spleen: Spleen is normal in size and homogeneous in echotexture. Kidneys: The right kidney is normal in size and echotexture. Right kidney measures 16.3 cm long; left kidney could not be seen. No solid masses. Aorta: Visualized aorta is normal in caliber at less than 3 cm. Iliacs: Proximal common iliac arteries are normal in caliber at less than 2.5 cm. IVC: Intrahepatic inferior vena cava is patent. Miscellaneous: There is mild for quadrant abdominal free fluid. IMPRESSION: 4 quadrant mild ascites noted, growing mass lesions throughout the liver parenchyma. Nonvisualization of the left kidney due to overlying bowel gas and inability of the patient to fully cooperate with positioning and breath holding. Dictated by: Donnie Harrington M.D. 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 He is receiving Ertapenem for a MSSA pneumonia and as empiric coverage for intrabdominal sepsis. He began FOLFOX 04/13 and completed 1st cycle 04/15. IMP Resp failure Multifactorial with massive PE, LLL PNA and marked abdominal distension all contributing. In addition, now he has aspirated blood from the nearly fatal event yesterday morning. There was NO radiographic resolution of his extensive bilateral PE's despite EKOS and systemic anticoagulation with heparin and argatroban now. His tense ascites has been drained x5 now but today' s paracentesis was more difficult, yielding only 500 ml. His oxygen requirement has significantly increased and he is using accessory muscles. He remains extubated but very weak and closer to dying than I have seen earlier in the week. Completed 10 days ertapenem but he has a low grade fever and his WBC has doubled His CXR shows worsening reticulonodular infiltrates in the RML and RLL with stable retrocardiac consolidation/atelectasis. Zosyn was started by his ID physician yesterday and cultures were obtained. With his changes in level of consciousness, and his vital signs, along with his requiring 100% O2, I am concerned that he may today and I've told his mother and asked her to notify family members of the decline in his condition. PE Bilat Massive PE. Had RV pressure overload on echo but no radiographic improvement after EKOS and anticoagulation on followup CTs. Possible that all material in pulmonary circulation is not thrombosis but instead some degree of tumor emboli given extent of hepatic involvement. He is undoubtably thrombophilic due to his advanced gastric cancer. Systemic thrombolysis, even at reduced dose not a safe option given his history of Gastric tumor and recent GI bleeds requiring transfusion. An attempt at catheter directed therapy with EKOS did not succeed and surgical thrombectomy is not a consideration given his primary diagnosis and exceeding grim prognosis based on that. Family has decided to resume the Argatroban gtt. 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 His repeat ATIII level was slightly low and LMWH might be an option but a NOAC such as dabigatran might be a better choice. Confusion, lethargy He is not interactive. He has mydriasis and this likely represents opiate withdrawal as he was on large doses of continuous infusion fentanyl for nearly 2 weeks. PRES has been reported a complication of many types of chemotherapy including oxiplatin but would require a MRI for diagnosis. His ammonia level was normal. His neuro exam is entirely non focal and non-lateralizing. We have considered whether his altered neuro status and seizures might be due to intracerebral bleeding in this patient on Argatroban. I think this is unlikely given his exam and seizures would be an unusual presentation of intracerebral hemorrhage which I would expect to have stopped spontaneously. Furthermore, he will soon from thromboemboli if his anticoagulation is stopped for long and he is obviously not a candidate for craniotomy even if he were proven to have ICH. Could have a new CVA due to paradoxical mechanism given his massive PE and elevated PA pressures. Gastric CA HER 2 negative and he has completed cycle of FOLFOX with dose reduction. His uric acid and phosphorus are stable or improved while labs today are pending. TPN will be adjusted. His family decided to begin chemotherapy and have been fully and repeatedly informed of the significant risks for catastrophic complications for which there may be no effective treatment. In the event of a cardiac arrest, he is now DNAR / DNI and this was reaffirmed with his family on 04/16. . Ascites A reflection of his elevated RV pressure and hypoalbuminemia along with direct tumor involvement. Improved after 6 L removed 04/12 and . today I was only able to remove 500 ml despite using a slightly larger needle and higher vacuum including manual aspiration. Hyperglycemia TPN, Decadron and stress all contribute. Adjusted SQ sliding scale, Can add insulin to TPN if daily requirement excessive. 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 For now renal fxn and UOP are adequate and there is no indication for renal replacement. New onset seizures No further seizures after starting Keppra. Possible causes include cerebral metastasis from his gastric CA, sedative drug withdrawal and altered seizure threshold from some of his medications. Too unstable now to undergo brain CT as he is requiring FiO2 of 80% and could not lie supine. Bang Mathis Documented family history and almost certainly the cause of his advanced gastric adenocarcinoma REC FOLFOX per Oncology, Filgrastim if WBC dips. serial metabolic labs Keppra Hold all psychoactive meds except those needed to maintain comfort. Neuroimaging if he could tolerate Panculture and empirica Abx per ID Repeat therapeutic large volume paracentesis repeated as needed Decadron for adjunctive pain treatment and for possibility of cerebral metastasis TPN Argatroban resumed at family request GI prophylaxis with BID PPI IV. DNAR / DNI Pain Evaluation: Adequate Pain Control GI Prophylaxis: Proton Pump Inhibitor VTE Prophylaxis: Other (Argatroban ggt) Resuscitation Status: DNR/DNI:Do Not Resuscitate/Intubate (max support but DNR) Time spent 35 minutes critical care exclusive of shared time and procedures Dony Vega MD Apr 21, 2017 09:08
--- NOTE | 2017-04-21 09:41 | NUR ---
Morning meds Morning meds were given using 5 point check and not scanned. MD was here right off the bat to do a paracentesis, so was unable to get to scanner to scan meds. Meds given safely and triple checked against emar.
[2017-04-21 09:49] LABS: Phosphorus 3.6 mg/dL (2.5-4.9)
--- NOTE | 2017-04-21 10:00 | NUR ---
Morning PTT Morning PTT results given to pharmacist. Addendum: 04/21/17 at 1015 by DAVID LABOY RN No change in Argatroban drip. PTTs checks now q 12 hours per MD.
--- NOTE | 2017-04-21 10:24 | NUR ---
NUTRITION FOLLOW-UP: ASSESS: 27 YO male with recent diagnosis of gastric adenocarcinoma with hepatic and peritoneal metastases admitted with massive PE and respiratory failure. He had trial of EKOS 04/03 but repeat CTPA 04/05 showed minimal resolution of his bilateral PE's. Patient was extubated 04/16, with worsening encephalopathy, status post seizure activity, resolved with Keppra loading. He remains NPO after an episode of bloody emesis yesterday, during which he aspirated but is receiving TPN that is currently meeting approximately 100% of his nutrient needs. He has a low grade fever and his WBC has doubled. His CXR shows worsening reticulonodular infiltrates in the RML and RLL with stable retrocardiac consolidation/atelectasis. With the changes in level of consciousness, and his vital signs, along with his requiring 100% O2, pulmonology concerned that he may today. Family notified. PMHx: Metastatic gastric cancer, upper GI bleed, liver biopsy, Peutz-Jeghers syndrome, LE DVT. DIET: NPO x 18 D. ENTERAL FEEDING: OFF TPN: 120 g AA, 350 g Dex, 60 g lipids to provide 2270 kcal, 120 g protein; meeting 100% calorie/protein needs. LABS: Reviewed. Na 145, Chloride 114, BUN 41, Cr 0.55, Glu 145, ca 8.2,Total Bili 5.7, AST 190, ALT 151, Alk Phos 617, BNP 723.3, Alb 2.3. MEDICATIONS: Reviewed. Insulin, Decadron, Dilaudid, Ativan, Keppra. GI: BM x 1 today. SKIN: No issues reported. ANTHROPOMETRICS: Current Wt: 71.6 kg, BMI 17.0 kg/m2. Admit weight: 81.0, IBW: 100 kg (81% IBW) ESTIMATED NEEDS (CANCER): Calories: 9836-7412 kcal/day (25-30 kcal/kg BW) Protein: 80-120 g/day (1.0-1.5 g/kg BW) Fluid: Approx. 2425 mL (30mL/kg BW) NUTRITION DIAGNOSIS: 1) Inadequate oral intake related to altered GI function, as evidenced by NPO/vent status, enteral feeding on hold - IMPROVED WITH TPN ADVANCED TO GOAL MACRONUTRIENT PROVISION. 2) Increased nutrient needs related to cancer, as evidenced by new gastric cancer w/ liver mets, 81% IBW, with continued weight loss - PERSISTS. INTERVENTION: 1) No further intervention at this time. MONITOR/EVALUATE: TPN tolerance, labs, weight, POC, GI/nutrition status. Follow per high nutrition risk guidelines.
[2017-04-21] MEDS: ARGATROBAN IV SCH ×2 (11:53)
[2017-04-21] MEDS: SODIUM CHLORIDE IV SCH ×2 (11:53)
--- NOTE | 2017-04-21 12:45 | PCM.PHAPRO ---
Progress PTT=52 Continue current rate. Next PTT 2330. TPN DOSING BAG #13 PARENTERAL NUTRITION ORDERS 13 - Standard Hang Time: 2100 Substrates Total kcal: 2270 AMINO ACIDS 120 g DEXTROSE 350 g Total Volume (mL): 2500 LIPIDS 60 g Sterile Water for Injection mL To Infuse Over (hrs): 24 Total Volume 2500 mL At at a rate of (mL/hr): 104 Additives Sodium Chloride 0 mEq "typical" daily requirements Sodium Acetate 0 mEq Sodium 50-120mEq Potassium Chloride 0 mEq Potassium 60-120mEq Potassium Phosphate 40 mEq Phosphate 20-40mEq Calcium Gluconate 4.65 mEq Magnesium 8-32mEq Magnesium Sulfate 12 mEq Calcium 9-22mEq POTASSIUM ACETATE 30 Acetate* 80-120mEq Chloride* 80-120mEq Regular Insulin 14 units *Depending on acid-base status Famotidine mg Multivitamins 1 std dose Insulin Regimen Trace Elements 1 std dose none Thiamine mg Regular Low Intensity Subcut Folic Acid mg Regular Medium Intensity Subcut Ascorbic Acid mg Regular High Intensity Subcut Regular Insulin Infusion Other: Special Instructions: To be infused via central line only. For delay or inturruption of TPN contact the pharmacist for alternative replacement solution. Signature Date: DREA PELAYO 2010 Ericka Quinteros.D Apr 21, 2017 12:44
--- NOTE | 2017-04-21 14:49 | PCM.PNMED ---
Subjective Date of Service Apr 21, 2017 Subjective The patient is unable to speak and has been really unable to speak or verbalize for several days. He is tachypneic. He does appear comfortable. Review of systems and subjective are not obtainable. Exam Vital Signs Vital Sign - Last Date Time Temp Pulse Resp B/P Pulse Ox O2 Delivery O2 Flow Rate FiO2 04/21/17 12:00 Supplement Oxygen 04/21/17 12:00 37.4 138 26 103/63 95 90 04/21/17 09:01 60 Intake and Output 04/20/17 04/20/17 04/21/17 Cumulative From/Thru 15:00 23:00 07:00 04/03/17 07:34 - 04/21/17 06:17 Intake Total 2062 ml 2294 ml 01574 ml Output Total 1500 ml 1000 ml 26565 ml Balance 562 ml 1294 ml 67134 ml Intake Oral 1776 ml IV Total 834 ml 975 ml 96336 ml Tube Feeding 1407 ml TPN/PPN 1228 ml 1319 ml 48080 ml Packed Cells 351 ml Tube Irrigant 480 ml Output Urine Total 1500 ml 1000 ml 21418 ml Gastric Drainage Total 1335 ml Drainage Total 44466 ml Other 1615 ml # Bowel Movements 0 1 7 Exam Patient appears comfortable, is not able to respond. Icteric sclera. Lungs rhonchorous, he is tachypneic. He has increased work of breathing. Heart is regular without murmur gallop or rub Abdomen distended, but no obvious tenderness or wincing to palpation. Extremities 3+ to 4+ edema bilaterally. Skin is jaundiced, multiple ecchymoses. IVs and Medications Medications Reviewed: Medications were reviewed in detail Lab and Diagnostics Result Diagram: 04/21/17 0904/21/17908 Microbiology Bronchial washing grew MSSA 04/09 X-Rays, CTs and MRIs CT ANGIO CHEST PULMONARY EMBOLISM 1. Slight decrease in severe pulmonary embolic disease with resolution of the previously seen saddle embolus spanning the main pulmonary artery bifurcation. However, significant embolic burden remains bilaterally. 2. Improved aeration of the left lower lobe. Decreased right lower lobe pneumonia. 3. Moderate ascites and severe hepatic metastatic disease. 4. Healing left rib fractures. 5. Gastroesophageal reflux. Dictated by: Landon Noel M.D. on 04/11/2017 at 10:12 CT ABDOMEN AND PELVIS WITH CONTRAST 1. Interval increased amount of large abdominal and pelvic ascites, presumably from peritoneal carcinomatosis. 2. Numerous variably sized hepatic metastases again noted, most confluent in the left hepatic lobe. 3. 6.4 x 5.5 x 3.5 cm left pelvic cystic lesion appears to arise from the left seminal vesicle. 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 4. Small bibasilar mobile pleural effusions, with associated compressive atelectasis. Dictated by: Moisés Brasher M.D. on 04/11/2017 at 10:32 Chest x-ray Stable pulmonary venous engorgement and support devices. Dictated by: New Powers M.D. on 04/03/2017 at 11:01 CT angiogram 1. Multiple, bilateral large pulmonary emboli. 2. Flattening of the cardiac interventricular septum suggesting right heart strain. 3. Hepatic metastatic disease. 4. Findings telephoned to Dr. Nathan Paz on 04/03/17 at 0817 hrs. Dictated by: Louisa Jones MD, PhD on 04/03/2017 at 8:13 Chest x-ray 1. Endotracheal tube and nasogastric tube positioned as described. 2. Mild cardiomegaly and moderate vascular congestion. Dictated by: Tristin Mckenzie M.D. on 04/03/2017 at 9:55 Chest x-ray 1. Endotracheal tube is positioned at the thoracic inlet. 2. Mild cardiomegaly and vascular congestion is similar to the prior study. Dictated by: Tristin Mckenzie M.D. on 04/03/2017 at 10:03 US ABDOMEN IMPRESSION: 4 quadrant mild ascites noted, growing mass lesions throughout the liver parenchyma. Nonvisualization of the left kidney due to overlying bowel gas and inability of the patient to fully cooperate with positioning and breath holding. Dictated by: Donnie Harrington M.D. on 04/10/2017 CT ANGIO CHEST PULMONARY EMBOLISM IMPRESSION: 1. Slight decrease in severe pulmonary embolic disease with resolution of the previously seen saddle embolus spanning the main pulmonary artery bifurcation. However, significant embolic burden remains bilaterally. 2. Improved aeration of the left lower lobe. Decreased right lower lobe pneumonia. 3. Moderate ascites and severe hepatic metastatic disease. 4. Healing left rib fractures. 5. Gastroesophageal reflux. Dictated by: Landon Noel M.D. on 04/11/2017 CT ABDOMEN AND PELVIS WITH CONTRAST IMPRESSION: 1. Interval increased amount of large abdominal and pelvic ascites, presumably from peritoneal carcinomatosis. 2. Numerous variably sized hepatic metastases again noted, most confluent in the left hepatic lobe. 3. 6.4 x 5.5 x 3.5 cm left pelvic cystic lesion appears to arise from the left seminal vesicle. 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 4. Small bibasilar mobile pleural effusions, with associated compressive atelectasis. Dictated by: Moisés Brasher M.D. on 04/11/2017 X-RAY CHEST ONE VIEW, PORTABLE IMPRESSION: 1. Support tubes appear in place. PICC line appears to be in the atrium 2. Mild right lower lobe interstitial infiltrate. Persistent left lower lobe consolidation. Small left pleural effusion. Findings compatible with pneumonia/ aspiration. Dictated by: David Greer M.D. on 04/13/2017 X-RAY CHEST ONE VIEW, PORTABLE IMPRESSION: Stable chest. Dictated by: Paul Nieves M.D. on 04/14/2017 X-RAY CHEST ONE VIEW, PORTABLE IMPRESSION: 1. Asymmetric pulmonary edema with superimposed bibasilar pneumonia. Dictated by: Paul Nieves M.D. on 04/14/2017 X-RAY CHEST ONE VIEW, PORTABLE IMPRESSION: 1. Stable right basilar infiltrates. Improving left lower lobe volume loss. 2. Stable support devices. Dictated by: New Powers M.D. on 04/15/2017 X-RAY CHEST ONE VIEW, PORTABLE IMPRESSION: Bilateral pulmonary airspace opacities similar to prior examination suggesting bilateral aspiration versus pneumonia. Dictated by: Jak Ortiz RRA Interpreted: Paul Nieves MD on 04/16/2017 Cardiac Echo Impressions Interpretation Summary Severely dilated right ventricle with moderate to severely reduced systolic function. Thrombus is visualized in the right ventricle. There is a catheter seen in the right atrium. Comparison is made with the echocardiogram of 04/03/2017, right ventricle size has decreased slightly. Electronically signed by: Karishma Morrow on Reading Physician:04/05/2017 02:03 PM . Additional Diagnostics PROCEDURE: US ABDOMEN FINDINGS: Liver: Liver is enlarged in size and heterogeneous in echotexture with multiple hepatic mass lesions previously identified again seen, having enlarged in size from the comparison ultrasound 03/07/17 and the largest measures up to 5.5 x 5.0 x 4.3 cm. Gallbladder: The gallbladder watts just above the upper limits of normal at 3.1 mm, and appears to contain sludge. A small amount of adjacent free fluid can be seen. Biliary ducts: Intrahepatic bile ducts are non-dilated. Extrahepatic bile duct caliber measures 3.5 mm. Normal is 6-7 mm or less in diameter, or 10 mm or less post-cholecystectomy. Pancreas: Visualized portions of the pancreas are sonographically normal. Spleen: Spleen is normal in size and homogeneous in echotexture. Kidneys: The right kidney is normal in size and echotexture. Right kidney measures 16.3 cm long; left kidney could not be seen. No solid masses. Aorta: Visualized aorta is normal in caliber at less than 3 cm. Iliacs: Proximal common iliac arteries are normal in caliber at less than 2.5 cm. IVC: Intrahepatic inferior vena cava is patent. Miscellaneous: There is mild for quadrant abdominal free fluid. IMPRESSION: 4 quadrant mild ascites noted, growing mass lesions throughout the liver parenchyma. Nonvisualization of the left kidney due to overlying bowel gas and inability of the patient to fully cooperate with positioning and breath holding. Dictated by: Donnie Harrington M.D. on 04/10/2017 at 11:07 Assessment & Plan Recurrent upper GI bleed with limited hematemesis. Stable for the last 48 hours. Probable recurrent blood aspiration. Worsening.. -The patient has required up titration of oxygen is now on an FiO2 of 100% on high flow oxygen. He is DO NOT INTUBATE. The family had decided this after his last extubation. New onset seizure, resolved no further seizure activity. Possible causes cerebral metastasis from gastric cancer, -No recurrence of seizure-like activity status post Keppra administration last night -Continue Keppra Septic encephalopathy, new and active. This is persistent. -Post likely secondary to ongoing polypharmacy and interactions thereof. -Fentanyl has been weaned, patient is now receiving MS Contin. The patient continues to have altered sleep cycles. Ongoing Massive bilateral pulmonary emboli with obstructive shock, acute. Difficult to assess progress. -There has been no radiographic improvement with bilateral PEs which have been refractory to EKOS and systemic anticoagulation, possibly suspected PEs are in fact tumor emboli. -Confirmed home dose of Lovenox 80 mg daily, most likely missing intermittent dosing prior to admission -Repeat CT shows unchanged clot burden despite treatment with tPA and EKOS 3, possible this is secondary to tumor emboli -Probable lysis not an option secondary to primary diagnosis of gastric tumor and prognosis -Continue with Argatroban drip, monitor PTT level -Patient extubated on 04/16/2017 -Agatroban continues Acute hypoxic respiratory failure, POA, active worsening. -ICU/pulmonology team following greatly appreciated recommendations and treatment direction. - Multiple possibilities including pneumonia, PE, tumor emboli, mucous plugging - Bronchoscopy 2 with removal of mucous plug - Extubated 04/16/2017, maintains O2 saturation with high flow O2 continue to wean as tolerated - Patient remained somewhat anxious current meds include olanzapine 2.5mg Q12H and PRN Lorazepam 0.25-0.5mg IV. - Continue to taper off Precedex and fentanyl - Continue chips and sips awaiting speech - Family does not desire reintubation , we will continue the patient on his current level of oxygen FiO2 100% high flow. Gastric adenocarcinoma, present on admission. Ongoing, status post 1 cycle of chemotherapy. -ICU team continues management for patient and care plan. Their time and expertise is greatly appreciated -Collagen following patient -HER-2 negative -Chemotherapy initiated FOLFOX per oncology Probable aspiration Pneumonia, not present on admission, active. -The patient was started on Zosyn after aspiration event 2 days ago. He was also having fevers at that time. We will continue empiric antibiotics. Sepsis secondary to aspiration pneumonia. Acute and active. The patient continues to run fevers, a profound leukocytosis which is worse at 30,000 as well as deteriorating respiratory status with tachypnea and hypoxia. Anasarca, new and active. 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 The patient has significant volume overload from resuscitation. We will continue to monitor and diuresis as able. -Large volume paracentesis, multiple times. -Albumin replacement -Ascitic fluid shows exudate -Urinary output remains adequate Acute iron deficiency anemia. Stable. - Secondary to hemodilution from aggressive fluid resuscitation. Possibly secondary to GI bleed from malignant gastric ulcers, but no sign of acute bleed at this time. Hb has been stable, so will switch from PPI drip to BID. - PRBCs on hold. Transfuse for HB <8. - Check H&H daily - Protonix 40 mg IV BID - Monitor for signs of acute bleeding Bilateral popliteal DVT, POA and active. - Pt diagnosed with bilateral large DVTs 3 weeks ago, placed on Lovenox at home with possible missed doses - Currently therapeutic on Argatroban Hyperbilirubinemia, new and active. - Bilirubin and Alkaline phos trending up; scleral icterus on exam; likely secondary to hepatic metastases. - Abdominal and pelvis CT shows growing mass lesions throughout liver parenchyma Hyperglycemia -TPN, Decadron and stress all contribute. Adjusted SQ sliding scale, Can add insulin to TPN if daily requirement excessive. Constipation. Present on admission, resolved -Currently having multiple bowel movements without difficulty Severe protein caloric Malnutrition. Active -Nutrition following, TPN started with concentrated formula Family was told by The patient appears to be likely to pass away in the next 1 or 2 days. I did reiterate the same message while discussing with 2 sisters and [id number] and the patient's mother. GI Prophylaxis: Proton Pump Inhibitor VTE Prophylaxis: Other (Argatroban ggt) Resuscitation Status: DNR/DNI:Do Not Resuscitate/Intubate (max support but DNR) Yaakov Fabian MD Apr 21, 2017 14:49
--- NOTE | 2017-04-21 15:02 | NUR ---
Tachypnia/Tachycardia RR 30s, HR 130-150s. MD aware. "No new orders".
--- NOTE | 2017-04-21 15:03 | NUR ---
Turn schedule Discussed expectations of turning patient due to tachypnea and tachycardia, and sleeping finally with mother first thing this morning. Mother and staff in agreement to continue to tilt patient side to side every 2 hours as would be normal turn schedule. Walked in to turn patient when father in room and staff was asked to "shush" and let him rest. Father was made aware of previous turning plan and that patient had been resting all morning, but he left seemingly unhappy with this plan. After another discussion with mom, we are continuing to turn patient about every 2.5 hours. Father is still out of room. Discussed with mom, that staff is here to do what is best for patient. Continuing with POC.
--- NOTE | 2017-04-21 16:40 | NUR ---
LOC/Resp/Tele/Blood sugars/GI-/Activity Patient sleeping, less responsive today. Does open eyes and occ nod. Denies pain with nod. Mumbles otherwise. High Flow O2 up to 100% FIO2 now at 60 L. Sats at 95%. RR, 30s most of shift. Patient is sucking air, using accessory muscles to breathe. Noted a coarse rattle with resps. Oral suctioning performed w/o much effect in secretions. MD aware and does not want staff to do NT suctioning. MD does not Scopolamine patch for secretions. lungs are coarse t/o. Cough is weak and ineffective. Tele has been ST, 130-150s--> MD aware, "no new orders". Morning blood sugar, 145 and covered by sliding scale. Mother declined staff to do afternoon blood sugar. Patient with dried blood around nose and mouth and note, cleaned. Frequent oral swabbing done. Mother does frequent oral swabbing to assist. Abdomen distended. No stool. UOP adequate, akin/orange in color. See previous note about turning patient in bed--> continuing to work with family to ensure comfort. Addendum: 04/22/17 at 1219 by DAVID LABOY RN Should read, "Patient with dried blood around nose and mouth, cleaned".
[2017-04-21] MEDS: HYDROmorphone 0.5 mg/0.5 mL iSecure Syringe IVPUSH PRN ×2 (17:21→22:25)
[2017-04-21] MEDS: Total Parenteral Nutrition 1 BAG IV SCH (20:28)
[2017-04-21] MEDS: TPN Per Pharmacist XX SCH (20:28)
[2017-04-21] MEDS: Dextrose 5% 1,000 ML IV SCH (20:35)
[2017-04-22 00:57] VITALS: RESP 32; O2SAT 92
[2017-04-22] MEDS: Piperacillin-Tazo 3.375 Gm Inj 3.375 GM in Dextrose 5% Minibag Plus 50 ML IV SCH ×2 (02:10→08:18)
[2017-04-22] MEDS: Morphine 2 mg/mL 5 mL Oral Solution PO SCH ×2 (02:11→08:18)
[2017-04-22 04:00] VITALS: BP 95/54; PULSE 133; RESP 31; O2SAT 98
[2017-04-22] MEDS: Insulin Human REGular 300 Unit/3 mL Inj SUBQ SCH ×2 (04:06→08:30)
[2017-04-22 04:14] LABS: BASOPHILS % (AUTO) 0 % (0-3); EOSINOPHILS % (AUTO) 0 % (0-5); Mean Corpuscular Hemoglobin 22.9 pg (27.0-35.0); Mean Corpuscular Volume 77.8 fL (81-100); Platelet Count 316 bil/L (150-400)
[2017-04-22 04:31] LABS: MONOCYTES % (AUTO) 1 % (4-12); NEUTROPHILS % (AUTO) 92 % (40-74)
[2017-04-22 04:34] LABS: Magnesium 2.3 mg/dL (1.6-2.6); Phosphorus 5.8 mg/dL (2.5-4.9)
[2017-04-22] MEDS ORDERED: Insulin Human REGular-Omnicell 100 Unit/mL IV ONE (06:35)
[2017-04-22] MEDS ORDERED: Dextrose 10% 250 ML IV ONE (06:50)
--- NOTE | 2017-04-22 07:13 | NUR ---
Hypoxia, hypotensive Patient turned at 0500, SpO2 did not recover after this, down to the high 80s and slowly trending down. Patient was already on full support on high flow. Patient repositioned on his back in case he just was not tolerating his left side, no improvement. Patient hypotensive, BP currently 70s/20s. MD updated on patient condition and notified of AM labs. MD came to bedside, discussed outlook with patient's father. More family members arrive. Patient appears comfortable. Family reminded he has pain medication ordered as needed and assured by MD there is more available for his comfort, family denies need for now.
[2017-04-22] MEDS ORDERED: Sodium Bicarb (50 mEq) 8.4% 1 mEq/mL 50 mL Syringe IVPUSH ONE (07:25)
[2017-04-22] MEDS ORDERED: Dextrose 10% 1,000 ML IV SCH (07:25)
--- NOTE | 2017-04-22 07:46 | PCM.PNMED ---
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 Has had trial of EKOS 04/03 but repeat CTPA 04/05showed minimal resolution of his bilat PE's. Had repeat CTPA and CT of Abd/Pelvis 04/11 which was personally reviewed showed NO resolution of extensive thrombus in both main Pulmonary arteries and nearly all branches, especially those in the RLL and RML. In addition there appears to be progressive disease in his liver with near total replacement of the left lobe with masses. There was increased ascites and evidence for peritioneal carcinomatosis. On 04/11, I spoke at length with Curtis's mother, sister, and father about the results of the CT's and the events of the last 24 hours. We discussed possible options for going forward and I essentially presented 3 different paths. First, I offered that we could continue fully aggressive support, as we are currently, with the expectation that he will eventually of his rapidly growing tumor, possibly within days or a couple weeks. The next option centers on administration of chemotherapy directed at his disseminated tumor along with a jermaine description of the multiple catastrophic complications that could occur as a result and, for which, we would have no effective treatment. These include gastric rupture, hepatic failure, severe GI hemorrhage, tumor lysis, renal failure, ARDS, sepsis, etc. Finally, we discussed withdrawal of Curtis's ventilator and shifting focus to comfort care with the expectation that he would within hours to a few days. I've spoken with [facility]'s oncologist, Dr. Suazo, who offered to meet with me and the family later today to give them a full understanding of the choices and likely outcomes. Palliative Care kindly agreed to take part in the discussion as well. I also offered to seek transfer of Curtis to a tertiary center such as if the family wishes to explore that however I told them that I doubted that could offer any additional options that might alter the final outcome. On 04/12, we had another family meeting to discuss prognosis and formulate a plan. Dr. Suazo, Dr. Calvo, Dr. Bourgeois and I met with the family along with nursing staff. We again presented the above 3 options and answered all questions. In addition, we asked the family to consider whether it was appropriate for Curtis to continue on Full Code status. After several hours deliberation, the family reported to me, Dr. Calvo, Dr. Bourgeois and staff that they had decided that 1) they would like for Curtis to begin chemo and 2) his code status should change to DNAR. We repeated the large volume therapeutic paracentesis and removed 6 L thin bile stained ascitic fluid without complications. He completed the first cycle of FOLFOX 04/15 As of 9 am 04/19, Curtis had tolerated decrease in his O2 to 2L/min by NC when suddenly he had hematemesis and hemoptysis and became severely hypoxemic requiring high flow O2 at 100%. At one point he appeared near with agonal respirations, coma and cyanosis. His argatroban was held. Please see progress notes from 04/19 for full details. Miraculously, he rallied and his SpO2 oscar above 90%. Later in the morning he had a brief generalized tonic-clonic seizure but awoke after an approximate 20 minute post-ictal period. Dr. Green of GI reevaluated Curtis and felt that endoscopy was not appropriate in this case. Flexible rhinoscopy revealed no evidence for epistaxis to explain his bleeding. Over night on 04/19, Curtis had 2 or 3 more seizures and was started on Keppra, The family has made an informed and thoughtful decision to resume Argatroban which both I and Dr. Suazo support. Interval History He slept much of yesterday but awoke in the afternoon and was more interactive with SpO2 95% on high flow at 90%. The family reports that he had a " good night ", resting mostly after visiting with family from out of town. Around 5 am this morning, he became hypoxemic and hypotensive around the time of his schedule turning and CXR. His SpO2 has not recovered. Morning labs have returned with numerous new metabolic problems including hyperkalemia of 6.6 and his creatinine has doubled. His HCO3 has not fallen but we don't have a blood gas and I don't feel its appropriate to subject him to an arterial puncture to obtain one. I will instead check a VBG later this morning along with other labs. His TPN was held by the night hospitalist. His respiratory rate and HR are variable and occasionally dip. He continues to use accessory muscles to breathe and FiO2 is 1.0 to maintain his SpO2 > 90% He appears comfortable. Exam Vital Signs Vital Sign - Last Date Time Temp Pulse Resp B/P Pulse Ox O2 Delivery O2 Flow Rate FiO2 04/22/17 04:21 Supplement Oxygen 04/22/17 04:00 37.6 133 31 95/54 98 04/22/17 00:57 60 100 Intake and Output 04/21/17 04/21/17 04/22/17 Cumulative From/Thru 15:00 23:00 07:00 04/03/17 07:34 - 04/22/17 06:15 Intake Total 2050 ml 2149 ml 20251 ml Output Total 600 ml 400 ml 33927 ml Balance 1450 ml 1749 ml 82073 ml Intake Oral 1776 ml IV Total 868 ml 901 ml 86335 ml Tube Feeding 1407 ml TPN/PPN 1182 ml 1248 ml 56804 ml Packed Cells 351 ml Tube Irrigant 480 ml Output Urine Total 600 ml 400 ml 93334 ml Gastric Drainage Total 1335 ml Drainage Total 40363 ml Other 1615 ml # Bowel Movements 7 Exam Pale gaunt young man who appears to be sleeping comfortably although using accessory muscles of respiration. Lungs coarse crackles throughout, NO wheezes CV RRR, no m/g/r Abd Distended, no BTs Ext slightly cool. Decreased pedal edema IVs and Medications Medications Reviewed: Medications were reviewed in detail Lab and Diagnostics Labs reviewed in detail Result Diagram: 04/22/17 0345 04/22/17 0545 Microbiology Bronchial washing grew MSSA 04/09 X-Rays, CTs and MRIs CT ANGIO CHEST PULMONARY EMBOLISM 1. Slight decrease in severe pulmonary embolic disease with resolution of the previously seen saddle embolus spanning the main pulmonary artery bifurcation. However, significant embolic burden remains bilaterally. 2. Improved aeration of the left lower lobe. Decreased right lower lobe pneumonia. 3. Moderate ascites and severe hepatic metastatic disease. 4. Healing left rib fractures. 5. Gastroesophageal reflux. Dictated by: Landon Noel M.D. on 04/11/2017 at 10:12 CT ABDOMEN AND PELVIS WITH CONTRAST 1. Interval increased amount of large abdominal and pelvic ascites, presumably from peritoneal carcinomatosis. 2. Numerous variably sized hepatic metastases again noted, most confluent in the left hepatic lobe. 3. 6.4 x 5.5 x 3.5 cm left pelvic cystic lesion appears to arise from the left seminal vesicle. 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 4. Small bibasilar mobile pleural effusions, with associated compressive atelectasis. Dictated by: Moisés Brasher M.D. on 04/11/2017 at 10:32 Chest x-ray Stable pulmonary venous engorgement and support devices. Dictated by: New Powers M.D. on 04/03/2017 at 11:01 CT angiogram 1. Multiple, bilateral large pulmonary emboli. 2. Flattening of the cardiac interventricular septum suggesting right heart strain. 3. Hepatic metastatic disease. 4. Findings telephoned to Dr. Nathan Paz on 04/03/17 at 0817 hrs. Dictated by: Louisa Jones MD, PhD on 04/03/2017 at 8:13 Chest x-ray 1. Endotracheal tube and nasogastric tube positioned as described. 2. Mild cardiomegaly and moderate vascular congestion. Dictated by: Tristin Mckenzie M.D. on 04/03/2017 at 9:55 Chest x-ray 1. Endotracheal tube is positioned at the thoracic inlet. 2. Mild cardiomegaly and vascular congestion is similar to the prior study. Dictated by: Tristin Mckenzie M.D. on 04/03/2017 at 10:03 US ABDOMEN IMPRESSION: 4 quadrant mild ascites noted, growing mass lesions throughout the liver parenchyma. Nonvisualization of the left kidney due to overlying bowel gas and inability of the patient to fully cooperate with positioning and breath holding. Dictated by: Donnie Harrington M.D. on 04/10/2017 CT ANGIO CHEST PULMONARY EMBOLISM IMPRESSION: 1. Slight decrease in severe pulmonary embolic disease with resolution of the previously seen saddle embolus spanning the main pulmonary artery bifurcation. However, significant embolic burden remains bilaterally. 2. Improved aeration of the left lower lobe. Decreased right lower lobe pneumonia. 3. Moderate ascites and severe hepatic metastatic disease. 4. Healing left rib fractures. 5. Gastroesophageal reflux. Dictated by: Landon Noel M.D. on 04/11/2017 CT ABDOMEN AND PELVIS WITH CONTRAST IMPRESSION: 1. Interval increased amount of large abdominal and pelvic ascites, presumably from peritoneal carcinomatosis. 2. Numerous variably sized hepatic metastases again noted, most confluent in the left hepatic lobe. 3. 6.4 x 5.5 x 3.5 cm left pelvic cystic lesion appears to arise from the left seminal vesicle. 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 4. Small bibasilar mobile pleural effusions, with associated compressive atelectasis. Dictated by: Moisés Brasher M.D. on 04/11/2017 X-RAY CHEST ONE VIEW, PORTABLE IMPRESSION: 1. Support tubes appear in place. PICC line appears to be in the atrium 2. Mild right lower lobe interstitial infiltrate. Persistent left lower lobe consolidation. Small left pleural effusion. Findings compatible with pneumonia/ aspiration. Dictated by: David Greer M.D. on 04/13/2017 X-RAY CHEST ONE VIEW, PORTABLE IMPRESSION: Stable chest. Dictated by: Paul Nieves M.D. on 04/14/2017 X-RAY CHEST ONE VIEW, PORTABLE IMPRESSION: 1. Asymmetric pulmonary edema with superimposed bibasilar pneumonia. Dictated by: Paul Nieves M.D. on 04/14/2017 X-RAY CHEST ONE VIEW, PORTABLE IMPRESSION: 1. Stable right basilar infiltrates. Improving left lower lobe volume loss. 2. Stable support devices. Dictated by: New Powers M.D. on 04/15/2017 X-RAY CHEST ONE VIEW, PORTABLE IMPRESSION: Bilateral pulmonary airspace opacities similar to prior examination suggesting bilateral aspiration versus pneumonia. Dictated by: Jak Ortiz RRA Interpreted: Paul Nieves MD on 04/16/2017 Cardiac Echo Impressions Interpretation Summary Severely dilated right ventricle with moderate to severely reduced systolic function. Thrombus is visualized in the right ventricle. There is a catheter seen in the right atrium. Comparison is made with the echocardiogram of 04/03/2017, right ventricle size has decreased slightly. Electronically signed by: Karsihma Morrow on Reading Physician:04/05/2017 02:03 PM . Additional Diagnostics PROCEDURE: US ABDOMEN FINDINGS: Liver: Liver is enlarged in size and heterogeneous in echotexture with multiple hepatic mass lesions previously identified again seen, having enlarged in size from the comparison ultrasound 03/07/17 and the largest measures up to 5.5 x 5.0 x 4.3 cm. Gallbladder: The gallbladder watts just above the upper limits of normal at 3.1 mm, and appears to contain sludge. A small amount of adjacent free fluid can be seen. Biliary ducts: Intrahepatic bile ducts are non-dilated. Extrahepatic bile duct caliber measures 3.5 mm. Normal is 6-7 mm or less in diameter, or 10 mm or less post-cholecystectomy. Pancreas: Visualized portions of the pancreas are sonographically normal. Spleen: Spleen is normal in size and homogeneous in echotexture. Kidneys: The right kidney is normal in size and echotexture. Right kidney measures 16.3 cm long; left kidney could not be seen. No solid masses. Aorta: Visualized aorta is normal in caliber at less than 3 cm. Iliacs: Proximal common iliac arteries are normal in caliber at less than 2.5 cm. IVC: Intrahepatic inferior vena cava is patent. Miscellaneous: There is mild for quadrant abdominal free fluid. IMPRESSION: 4 quadrant mild ascites noted, growing mass lesions throughout the liver parenchyma. Nonvisualization of the left kidney due to overlying bowel gas and inability of the patient to fully cooperate with positioning and breath holding. Dictated by: Donnie Harrington M.D. 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 He completed a course of ertapenem but is now on Zosyn and an azole antifungal after developing fever, increased WBC and worsening infiltrates on his CXR. He completed 1st cycle FOLFOX 04/15. IMP Resp failure Multifactorial with massive PE, LLL PNA and marked abdominal distension all contributing. In addition, now he aspirated blood several days. There was NO radiographic resolution of his extensive bilateral PE's despite EKOS and systemic anticoagulation with heparin and argatroban now. His tense ascites has been drained x5 now but today's paracentesis was more difficult, yielding only 500 ml. His oxygen requirement has significantly increased and he is using accessory muscles. He remains extubated but very weak and closer to dying than I have seen earlier in the week. Completed 10 days ertapenem but he has a low grade fever and his WBC has doubled His CXR shows worsening reticulonodular infiltrates in the RML and RLL with stable retrocardiac consolidation/atelectasis. Zosyn was started by his ID physician 04/20 and cultures were obtained. With his changes in level of consciousness, and his vital signs, along with his requiring 100% O2, I remain concerned that he may soon and I've expressed this to his family. PE Bilat Massive PE. Had RV pressure overload on echo but no radiographic improvement after EKOS and anticoagulation on followup CTs. Possible that all material in pulmonary circulation is not thrombosis but instead some degree of tumor emboli given extent of hepatic involvement. He is undoubtably thrombophilic due to his advanced gastric cancer. Systemic thrombolysis, even at reduced dose not a safe option given his history of Gastric tumor and recent GI bleeds requiring transfusion. An attempt at catheter directed therapy with EKOS did not succeed and surgical thrombectomy is not a consideration given his primary diagnosis and exceeding grim prognosis based on that. Family has decided to resume the Argatroban gtt. 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 His repeat ATIII level was slightly low and LMWH might be an option but a NOAC such as dabigatran might be a better choice. Confusion, lethargy He is not interactive. He has mydriasis and this likely represents opiate withdrawal as he was on large doses of continuous infusion fentanyl for nearly 2 weeks. PRES has been reported a complication of many types of chemotherapy including oxiplatin but would require a MRI for diagnosis. His ammonia level was normal. His neuro exam is entirely non focal and non-lateralizing. We have considered whether his altered neuro status and seizures might be due to intracerebral bleeding in this patient on Argatroban. I think this is unlikely given his exam and seizures would be an unusual presentation of intracerebral hemorrhage which I would expect to have stopped spontaneously. Furthermore, he will soon from thromboemboli if his anticoagulation is stopped for long and he is obviously not a candidate for craniotomy even if he were proven to have ICH. Could have a new CVA due to paradoxical mechanism given his massive PE and elevated PA pressures. Gastric CA HER 2 negative and he has completed cycle of FOLFOX with dose reduction. His uric acid and phosphorus had been stable or improved but his phosphorus and potassium are elevated today and he has Acute Kidney Injury. There may be a component of tumor lysis. His family decided to begin chemotherapy after being fully and repeatedly informed of the significant risks for catastrophic complications for which there may be no effective treatment. In the event of a cardiac arrest, he is now DNAR / DNI and this was reaffirmed with his family on 04/16. . Ascites A reflection of his elevated RV pressure and hypoalbuminemia along with direct tumor involvement. Improved after 6 L removed 04/12 and . However on 04/21, I was only able to remove 500 ml despite using a slightly larger needle and higher vacuum including manual aspiration. Seizures He developed seizures on 04/19 and had several more which were brief and generalized. No imaging has been done due to his cardiopulmonary instability and inability to be supine. No further seizures since starting Keppra. ULISSES Nonoliguric. His solitary kidney is a factor. Acute hemodialysis does not seem appropriate given his prognosis, grave condition, and the fact that it would require placement of temporary dialysis access which would be painful and associated with significant risk for bleeding as he is on Argatroban. His hyperkalemia is the primary concern this morning. His TPN has been held. He has received glucose, insulin, and sodium bicarbonate. With his elevated PO4, I am reluctant to give calcium salts and a sodium polystyrene resin enema would be the only short term means of removing potassium and is one that the family might refuse given its unpleasant nature. Hyperglycemia TPN, Decadron and stress all contribute. Adjusted SQ sliding scale, Can add insulin to TPN if daily requirement excessive. New onset seizures No further seizures after starting Keppra. Possible causes include cerebral metastasis from his gastric CA, sedative drug withdrawal and altered seizure threshold from some of his medications. Too unstable now to undergo brain CT as he is requiring FiO2 of 80% and could not lie supine. Bang Mathis Documented family history and almost certainly the cause of his advanced gastric adenocarcinoma REC FOLFOX per Oncology, Filgrastim if WBC dips NaHCO3, Discuss dialysis and Kayexalate with family, Hold TPN. VBG, Check uric acid serial metabolic labs [facility] Hold all psychoactive meds except those needed to maintain comfort. Panculture and empiric Abx per ID Repeat therapeutic large volume paracentesis repeated as needed Decadron for adjunctive pain treatment and for possibility of cerebral metastasis Argatroban resumed at family request GI prophylaxis with BID PPI IV. DNAR / DNI Pain Evaluation: Adequate Pain Control GI Prophylaxis: Proton Pump Inhibitor VTE Prophylaxis: Other (Argatroban ggt) Resuscitation Status: DNR/DNI:Do Not Resuscitate/Intubate (max support but DNR) Time spent 55 minutes critical care time exclusive of shared time and procedures Dony Vega MD Apr 22, 2017 07:46
[2017-04-22 08:00] VITALS: BP 60/15; PULSE 115; RESP 26; O2SAT 91
[2017-04-22] MEDS: Micafungin Inj 150 MG in 0.9% Sodium Chloride 100 ML IV SCH (08:17)
[2017-04-22] MEDS: Dexamethasone 4 mg/mL Inj IVPUSH SCH (08:18)
[2017-04-22] MEDS: Pantoprazole 4 mg/mL 10 mL Inj IVPUSH SCH (08:18)
--- NOTE | 2017-04-22 08:37 | NUR ---
BP/Resp/Hyperkalemia BP 63/27, 60/15, 49/13, since taking over shift. MD/family aware. Respiratory rate 30s, then 20s, then 18. Gave 1 amp sodium bicarb and started D10 at 50/hr per orders in hopes of shifting potassium and keeping blood sugars stable with TPN being dcd. Mom refused blood sugar this morning. Sats unattainable. Skin cold and clammy. HR dropping from 112 bianca to 70 suddenly. MD summoned to room. All family members summoned to room. RR 12 currently. Made family aware to call if they need anything. Family with patient. HR 67. Asystole at 0849.
[2017-04-22] MEDS: SODIUM CHLORIDE IV SCH ×2 (10:05)
[2017-04-22] MEDS: [UNRECOGNIZED DRUG - REMARK] XX SCH (10:05)
[2017-04-22] MEDS: ARGATROBAN IV SCH ×2 (10:05)
--- NOTE | 2017-04-22 11:26 | DRSVH ---
PROCEDURE: X-RAY CHEST ONE VIEW, PORTABLE ([id number]) INDICATIONS: pneumonia TECHNIQUE: One view of the chest was acquired. COMPARISON: [facility], CR, XR CHEST 1VW (PORTABLE), 04/20/2017, 5:26. FINDINGS: Surgical changes and devices: Left upper extremity PICC line appears unchanged in position. Lungs and pleura: There are persistent small bilateral pleural effusions, right greater than left, w ith interval increase on the right. There are increased bibasilar confluent airspace opacities consi stent with consolidation as well as possible atelectasis. Mild pulmonary edema also appears slightly increased. Mediastinum: Mediastinal contours appear unchanged. Heart size is normal. Bones and chest wall: No suspicious bony lesions. Overlying soft tissues appear unremarkable. IMPRESSION: 1. Interval increased right pleural effusion and right basilar confluent airspace opacities consiste nt with consolidation and likely representing pneumonia given clinical history. 2. Persistent left basilar consolidation or atelectasis and small left pleural effusion. 3. Slightly increased mild pulmonary edema. Dictated by: Wilfred Vargas M.D. on 04/22/2017 at 11:23 Approved by: Wilfred Vargas M.D. on 04/22/2017 at 11:25
--- NOTE | 2017-04-22 12:26 | NUR ---
Social Work- Multidisciplinary Rounds SW notified in multidisciplinary rounds that pt this morning. No d/c planning needs. SW is available for emotional support for the family. MILAGROS Jiménez
--- NOTE | 2017-04-22 13:49 | NUR ---
Patient Patient at 0849. Family at bedside. MDs notified. Family here with patient until 1300. Paperwork filled out and dispersed appropriately. All belongings taken home with parents and sister. Patient was prepped for morgue and taken out of room at 1354. Addendum: 04/22/17 at 1427 by DAVID LABOY RN Notified [facility] that the family chosen their services. Addendum: 04/22/17 at 1427 by DAVID LABOY RN had chosen
--- NOTE | 2017-04-22 19:21 | PCM.DC.MEX ---
Discharge Summary Date of Service Apr 22, 2017 Dates of Hospitalization Date of Hospital Admission Apr 03, 2017 at 10:29 Date of Expiration: Apr 22, 2017 Time of Expiration: 08:49 Providers: Admitting Physician: Corey Sheffield MD Primary Care Physician: Griselda Attending Physician: Yaakov Fabian MD Diagnosis at Time of Hypoxic respiratory failure Aspiration pneumonia Massive pulmonary embolism Gastrointestinal hemorrhage Gastric adenocarcinoma Sepsis Severe protein caloric malnutrition Septic encephalopathy Anasarca Acute renal failure with hyperkalemia. Liver failure Consultations Dr. watts, infectious disease Dr. Mirza and Dr. Vega, critical care medicine Dr Green, Gastroenterology. Oncology Procedures XRay, CTs & MRIs CT ANGIO CHEST PULMONARY EMBOLISM 1. Slight decrease in severe pulmonary embolic disease with resolution of the previously seen saddle embolus spanning the main pulmonary artery bifurcation. However, significant embolic burden remains bilaterally. 2. Improved aeration of the left lower lobe. Decreased right lower lobe pneumonia. 3. Moderate ascites and severe hepatic metastatic disease. 4. Healing left rib fractures. 5. Gastroesophageal reflux. Dictated by: Landon Noel M.D. on 04/11/2017 at 10:12 CT ABDOMEN AND PELVIS WITH CONTRAST 1. Interval increased amount of large abdominal and pelvic ascites, presumably from peritoneal carcinomatosis. 2. Numerous variably sized hepatic metastases again noted, most confluent in the left hepatic lobe. 3. 6.4 x 5.5 x 3.5 cm left pelvic cystic lesion appears to arise from the left seminal vesicle. 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 4. Small bibasilar mobile pleural effusions, with associated compressive atelectasis. Dictated by: Moisés Brasher M.D. on 04/11/2017 at 10:32 Chest x-ray Stable pulmonary venous engorgement and support devices. Dictated by: New Powers M.D. on 04/03/2017 at 11:01 CT angiogram 1. Multiple, bilateral large pulmonary emboli. 2. Flattening of the cardiac interventricular septum suggesting right heart strain. 3. Hepatic metastatic disease. 4. Findings telephoned to Dr. Nathan Paz on 04/03/17 at 0817 hrs. Dictated by: Louisa Jones MD, PhD on 04/03/2017 at 8:13 Chest x-ray 1. Endotracheal tube and nasogastric tube positioned as described. 2. Mild cardiomegaly and moderate vascular congestion. Dictated by: Tristin Mckenzie M.D. on 04/03/2017 at 9:55 Chest x-ray 1. Endotracheal tube is positioned at the thoracic inlet. 2. Mild cardiomegaly and vascular congestion is similar to the prior study. Dictated by: Tristin Mckenzie M.D. on 04/03/2017 at 10:03 US ABDOMEN IMPRESSION: 4 quadrant mild ascites noted, growing mass lesions throughout the liver parenchyma. Nonvisualization of the left kidney due to overlying bowel gas and inability of the patient to fully cooperate with positioning and breath holding. Dictated by: Donnie Harrington M.D. on 04/10/2017 CT ANGIO CHEST PULMONARY EMBOLISM IMPRESSION: 1. Slight decrease in severe pulmonary embolic disease with resolution of the previously seen saddle embolus spanning the main pulmonary artery bifurcation. However, significant embolic burden remains bilaterally. 2. Improved aeration of the left lower lobe. Decreased right lower lobe pneumonia. 3. Moderate ascites and severe hepatic metastatic disease. 4. Healing left rib fractures. 5. Gastroesophageal reflux. Dictated by: Landon Noel M.D. on 04/11/2017 CT ABDOMEN AND PELVIS WITH CONTRAST IMPRESSION: 1. Interval increased amount of large abdominal and pelvic ascites, presumably from peritoneal carcinomatosis. 2. Numerous variably sized hepatic metastases again noted, most confluent in the left hepatic lobe. 3. 6.4 x 5.5 x 3.5 cm left pelvic cystic lesion appears to arise from the left seminal vesicle. 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 4. Small bibasilar mobile pleural effusions, with associated compressive atelectasis. Dictated by: Moisés Brasher M.D. on 04/11/2017 X-RAY CHEST ONE VIEW, PORTABLE IMPRESSION: 1. Support tubes appear in place. PICC line appears to be in the atrium 2. Mild right lower lobe interstitial infiltrate. Persistent left lower lobe consolidation. Small left pleural effusion. Findings compatible with pneumonia/ aspiration. Dictated by: David Greer M.D. on 04/13/2017 X-RAY CHEST ONE VIEW, PORTABLE IMPRESSION: Stable chest. Dictated by: Paul Nieves M.D. on 04/14/2017 X-RAY CHEST ONE VIEW, PORTABLE IMPRESSION: 1. Asymmetric pulmonary edema with superimposed bibasilar pneumonia. Dictated by: Paul Nieves M.D. on 04/14/2017 X-RAY CHEST ONE VIEW, PORTABLE IMPRESSION: 1. Stable right basilar infiltrates. Improving left lower lobe volume loss. 2. Stable support devices. Dictated by: New Powers M.D. on 04/15/2017 X-RAY CHEST ONE VIEW, PORTABLE IMPRESSION: Bilateral pulmonary airspace opacities similar to prior examination suggesting bilateral aspiration versus pneumonia. Dictated by: Jak Ortiz RRA Interpreted: Paul Nieves MD on 04/16/2017 Cardiac Echo Impression Interpretation Summary Severely dilated right ventricle with moderate to severely reduced systolic function. Thrombus is visualized in the right ventricle. There is a catheter seen in the right atrium. Comparison is made with the echocardiogram of 04/03/2017, right ventricle size has decreased slightly. Electronically signed by: Karishma Morrow on Reading Physician:04/05/2017 02:03 PM . Invasive Procedures EKOS 3 Multiple paracentesis Intubation with mechanical ventilation Other Diagnostics PROCEDURE: US ABDOMEN FINDINGS: Liver: Liver is enlarged in size and heterogeneous in echotexture with multiple hepatic mass lesions previously identified again seen, having enlarged in size from the comparison ultrasound 03/07/17 and the largest measures up to 5.5 x 5.0 x 4.3 cm. Gallbladder: The gallbladder watts just above the upper limits of normal at 3.1 mm, and appears to contain sludge. A small amount of adjacent free fluid can be seen. Biliary ducts: Intrahepatic bile ducts are non-dilated. Extrahepatic bile duct caliber measures 3.5 mm. Normal is 6-7 mm or less in diameter, or 10 mm or less post-cholecystectomy. Pancreas: Visualized portions of the pancreas are sonographically normal. Spleen: Spleen is normal in size and homogeneous in echotexture. Kidneys: The right kidney is normal in size and echotexture. Right kidney measures 16.3 cm long; left kidney could not be seen. No solid masses. Aorta: Visualized aorta is normal in caliber at less than 3 cm. Iliacs: Proximal common iliac arteries are normal in caliber at less than 2.5 cm. IVC: Intrahepatic inferior vena cava is patent. Miscellaneous: There is mild for quadrant abdominal free fluid. IMPRESSION: 4 quadrant mild ascites noted, growing mass lesions throughout the liver parenchyma. Nonvisualization of the left kidney due to overlying bowel gas and inability of the patient to fully cooperate with positioning and breath holding. Dictated by: Donnie Harrington M.D. 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 He also reports palpitations and chest pain. He denies fever, cough, sputum production, N/V/D, hematemesis, orthopnea, or PND. He had been in his usual state of health until 6 weeks ago when he had a bleeding peptic ulcer. Endoscopy showed ulcerated polyps. A biopsy of the polyps showed hamartoma, and an ultrasound of his liver showed numerous metastases. During this time, he was placed on Lovenox due to bilateral DVTs. His Lovenox was held for 2 days for a liver biopsy about 2 weeks ago, and again yesterday for PICC line placement for chemotherapy. On admission, CT scan showed massive bilateral pulmonary emboli. A stat echocardiogram showed markedly dilated right ventricle with depressed right ventricular function. The patient was intubated for acute respiratory failure and all history was obtained from medical records. He was immediately taken for EKOS catheter directed thrombolytic therapy. PALLIATIVE CARE CONSULTATION Reason: discussion on goals of care Historians- family and review of chart, hospital team. 27 yo patient with massive PE with RHF, hypoxia intubated with driving cause of adenocarcinoma of the stomach metastatic to his liver. He has massive ascites, ileus and a hx of hematemesis.See above. Per family, his start of chemo was delayed by 3 weeks due to port placement etc and he had recurrence of PE with the resultant hospitalization and treatment for respiratory failure. He has been treated with EKOS cath thrombolysis and vent support. He has been evaluated by ID and is on antibiotics due to MSSA in bronch washings and leukocytosis. Complicating issues include massive tense ascites, RHF, ileus and he is on TPN for nutritional support. Repeat CT scan notes decrease in clot burden with resolution of saddle emboli but significant distal and continued massive ascites and extensive liver mets ds. Note of congenitally absent kidney. Prior to this illness he was an athletic healthy individual. His symptoms began around 6 months ago. He had mentioned increasing back pain in the few months prior to admission.He had also lost about 15-20#. His presenting sx was dyspnea. Hospital Course Hospital course. 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 The patient was admitted with massive pulmonary emboli related to his malignancy. The patient admitted to the ICU and intubated for hypoxic respiratory failure. He underwent EKOS was 3. 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 He was switched Argatroban. The patient had a pneumonia complicating his respiratory failure. Cultures grew out MSSA. He had a prolonged period of intubation for his respiratory failure. He also developed progressive anasarca. Ultimately the patient did improve to the point of being extubated several days prior to his . 2 days after extubation while remaining encephalopathic the patient had recurrent hematemesis with probable aspiration of blood. The patient then became febrile again and his oxygen demand increased. He was started on antibiotics again for possible aspiration pneumonia. The patient's encephalopathy worsened and his respiratory status worsened over the last several days in the hospital. His oxygen demand increased to 100% on high flow. After extubation the family had determined that they wanted to not reintubate him. The patient was noted to go into multiorgan failure over the last 2 days of his hospitalization with progressive renal failure and worsening liver functions as well as worsening mental status and Tory status. On the day of his the patient was hyperkalemic. The patient passed with the family at the bedside on the morning of April 22 Exam Test 04/03/17 07:45 04/04/17 05:45 04/06/17 02:15 04/07/17 08:14 D-Dimer 14.76mg/L FEU (<0.50) Hemoglobin A1c 5.5% (4.8-5.6) Troponin T 0.010ug/L (0.0-0.011) Thyroid Stimulating Hormone (TSH) 3.070uIU/mL (0.450-4.500) Prealbumin < 3.0mg/dL (20-40) Fibrinogen 348mg/dL (157-380) Test 04/07/17 12:30 04/10/17 11:25 04/12/17 04:45 04/14/17 09:10 Coagulation Factor VIII Activity 277% (.) Body Fluid Source Peritoneal fluid Body Fluid Color Yellow (Clear) Body Fluid Appearance Hazy Body Fluid WBC 343/mm3 Body Fluid RBC 664/mm3 Body Fluid Polynuclear WBCs 56% Body Fluid Lymphocytes 29% Body Fluid Monocytes 13% Body Fluid Eosinophils 0% Body Fluid Basophils 2% Body Fluid Albumin 1.5g/dL (.) Body Fluid Lactate Dehydrogenase 938U/L Peritoneal Fluid Glucose 145mg/dL Direct Bilirubin 4.0mg/dL (0.0-0.3) Hold Purple Top Tube Received (Received) Hold Blue Top Tube Received (Received) Lactate Dehydrogenase 808U/L (100-190) Hold Aldrich Top Tube Received (Received) Test 04/17/17 03:15 04/18/17 03:45 04/18/17 19:37 04/19/17 05:15 Anti-Thrombin III Antigen 63% (72-124) Procalcitonin 6.93ng/mL (0.00-0.08) Carcinoembryonic Antigen 15.0ng/mL (0.0-4.7) CA 19-9 Antigen 56U/mL (0-35) Ammonia 26ug/dL (18-53) Osmolality 327 (275-300) Triglycerides Level 181mg/dL (0-149) Test 04/20/17 02:00 04/20/17 06:45 04/20/17 08:07 04/21/17 09:09 Lactic Acid Level 2.1mmol/L (0.4-2.0) Prothrombin Time 16.7sec (8.1-12.5) Prothromb Time International Ratio 1.55ratio Lipase 120U/L (13-60) Urine Color Yellow (YELLOW) Urine Appearance Clear (CLEAR,HAZY) Urine pH 6.0 (5.0-8.0) Urine Specific [place] 1.020 (1.003-1.035) Urine Protein 30mg/dL (NEG,TRACE) Urine Glucose (UA) Negativemg/dL (NEGATIVE) Urine Ketones Negativemg/dL (NEGATIVE) Urine Occult Blood Trace (NEGATIVE) Urine Nitrite Negative (NEGATIVE) Urine Bilirubin Moderate (NEGATIVE) Urine Ictotest Positive (Negative) Urine Urobilinogen 1.0mg/dL (NORMAL) Urine Leukocyte Esterase Negative (NEGATIVE) Urine RBC 0-2/hpf (0-2) Urine WBC 0-5/hpf (0-5) Urine Epithelial Cells None/hpf (NONE-MOD) Urine Crystals None seen (NONE SEEN) Urine Bacteria None/hpf (NONE-FEW) Urine Hyaline Casts None/lpf (NONE) Urine Granular Casts None seen (NONE SEEN) Urine Waxy Casts None seen (NONE SEEN) Urine Red Blood Cell Casts None seen (NONE SEEN) Urine White Blood Cell Casts None seen (NONE SEEN) Urine Mucus None seen (None Seen) Urine Trichomonas None seen (NONE SEEN) Urine Yeast None (NONE SEEN) Urinalysis Comment None Urine Culture Reflexed Not indicated Urine Osmolality 741mOs/kH2O (250-1200) Urine Random Sodium 44mEq/L Pro-B-Type Natriuretic Peptide 732.3pg/mL (0-86) Test 04/22/17 03:45 04/22/17 05:45 White Blood Count 24.5th/mm3 (3.8-10.1) Red Blood Count 3.15mil/mm3 (4.40-5.80) Hemoglobin 7.2g/dL (13.8-17.2) Hematocrit 24.5% (41.0-50.0) Mean Corpuscular Volume 77.8fL (81-100) Mean Corpuscular Hemoglobin 22.9pg (27.0-35.0) Mean Corpuscular Hemoglobin Concent 29.4% (32.0-37.0) Red Cell Distribution Width 25.3% (12.3-15.4) Platelet Count 316bil/L (150-400) Neutrophils (%) (Auto) 92% (40-74) Lymphocytes (%) (Auto) 5% (14-46) Monocytes (%) (Auto) 1% (4-12) Eosinophils (%) (Auto) 0% (0-5) Basophils (%) (Auto) 0% (0-3) Band Neutrophils % 1% (1-5) Nucleated Red Blood Cells 2/100 WBC (0-24) Hematology Comments Activated Partial Thromboplast Time 75.8sec (22.8-33.0) Sodium Level 143mEq/L (134-144) Chloride Level 110mEq/L (97-108) Carbon Dioxide Level 19mmol/L (18-29) Blood Urea Nitrogen 67mg/dL (6-20) Creatinine 1.35mg/dL (0.76-1.27) Estimat Glomerular Filtration Rate 67mL/min (>59) Glucose Level 233mg/dL (60-99) Calcium Level 8.2mg/dL (8.5-10.1) Phosphorus Level 5.8mg/dL (2.5-4.9) Magnesium Level 2.3mg/dL (1.6-2.6) Total Bilirubin 7.7mg/dL (0.0-1.2) Aspartate Amino Transf (AST/SGOT) 229U/L (0-50) Alanine Aminotransferase (ALT/SGPT) 164U/L (0-44) Alkaline Phosphatase 563U/L (25-150) Total Protein 5.2g/dL (6.4-8.4) Albumin 2.3g/dL (3.4-5.0) Potassium Level 6.6mEq/L (3.5-5.2) Uric Acid 3.9mg/dL (2.6-7.2) Microbiology Results Bronchial washing grew MSSA 04/09 Time spent 40 minutes Yaakov Fabian MD Apr 22, 2017 19:21
--- NOTE | 2017-04-23 02:00 | PROG NOTE ---
[address] [address] PROGRESS NOTE PATIENT: DREA PELAYO : 1990 MR#: [id number] ADMIT: 04/03/2017 JOB ID: [id number] DATE: 04/05/2017 SUBJECTIVE: This is a 27-year-old man with metastatic cancer involving the liver, with presumed stomach primary due to Peutz-Jeghers disease. The liver biopsy confirmed likely of upper GI primary. He is in the hospital with multiple complications of his cancer, including bilateral large pulmonary emboli which have continued to cause respiratory and circulatory compromise, aspiration, tense ascites, liver failure, and other problems including malnutrition. His cancer has not yet been treated, but I had proposed FOLFOX chemotherapy, and that decision is pending. He is sedated and unable to communicate at this time. OBJECTIVE: His vital signs are relatively stable, with a temperature of 37.3, pulse 118, respiratory rate 20, blood pressure 94/49, pulse ox 96% on 100% FiO2. The remainder of the physical exam is deferred. This is a general evaluation and a conversation with the family lasting 20 minutes. LABORATORY VALUES: The white count is 13.8, with 82 segs, hemoglobin 10.0, hematocrit 31.1, MCV 74, platelets 212, lymphocytes . The BUN and creatinine are 16 and 0.62. Electrolytes normal except for sodium 133. Potassium is normal at 4.8. Calcium 7.7, bilirubin 2.5, alkaline phosphatase 434. The bilirubin has been gradually climbing. ASSESSMENT AND RECOMMENDATIONS: Metastatic cancer involving the liver. This patient has a very advanced cancer. This is extremely unusual for a person in this age range and is described in my previous notes. I have counseled the family as to the pros and cons of systemic chemotherapy, and I think in the next few days, it will be determined if he is stable enough to make that decision himself or have it made for him by his family.
== END 2017-04-22 08:49 | disposition expired | DRG 163 ==
LOC: SED 07:23 → CCU 10:29
PROVIDERS: ADMIT Internal Medicine; ATTEND Internal Medicine
PROC: 3E06317 Introduction of Other Thrombolytic into Central Artery, Percutaneous Approach (ICD-10-PCS; principal; 2017-04-03)
PROC: 5A1955Z Respiratory Ventilation, Greater than 96 Consecutive Hours (ICD-10-PCS; 2017-04-03)
PROC: 3E08317 Introduction of Other Thrombolytic into Heart, Percutaneous Approach (ICD-10-PCS; 2017-04-03)
PROC: 0BH Respiratory System, Insertion (ICD-10-PCS; 2017-04-03)
PROC: 0BH17EZ Insertion of Endotracheal Airway into Trachea, Via Natural or Artificial Opening (ICD-10-PCS; 2017-04-03)
PROC: 4A033R1 Measurement of Arterial Saturation, Peripheral, Percutaneous Approach (ICD-10-PCS; 2017-04-03)
PROC: 30233N1 Transfusion of Nonautologous Red Blood Cells into Peripheral Vein, Percutaneous Approach (ICD-10-PCS; 2017-04-03)
PROC: 02HQ33Z Insertion of Infusion Device into Right Pulmonary Artery, Percutaneous Approach (ICD-10-PCS; 2017-04-04)
PROC: 3E06317 Introduction of Other Thrombolytic into Central Artery, Percutaneous Approach (ICD-10-PCS; 2017-04-04)
PROC: 02H Heart and Great Vessels, Insertion (ICD-10-PCS; 2017-04-05)
PROC: 3E04317 Introduction of Other Thrombolytic into Central Vein, Percutaneous Approach (ICD-10-PCS; 2017-04-05)
PROC: B2141ZZ Fluoroscopy of Right Heart using Low Osmolar Contrast (ICD-10-PCS; 2017-04-05)
PROC: 03HY32Z Insertion of Monitoring Device into Upper Artery, Percutaneous Approach (ICD-10-PCS; 2017-04-05)
PROC: 0B9B8ZX Drainage of Left Lower Lobe Bronchus, Via Natural or Artificial Opening Endoscopic, Diagnostic (ICD-10-PCS; 2017-04-06)
PROC: 0B9B8ZZ Drainage of Left Lower Lobe Bronchus, Via Natural or Artificial Opening Endoscopic (ICD-10-PCS; 2017-04-09)
PROC: 3E0436Z Introduction of Nutritional Substance into Central Vein, Percutaneous Approach (ICD-10-PCS; 2017-04-09)
PROC: 0W9G3ZX Drainage of Peritoneal Cavity, Percutaneous Approach, Diagnostic (ICD-10-PCS; 2017-04-10)
PROC: 0W9G3ZZ Drainage of Peritoneal Cavity, Percutaneous Approach (ICD-10-PCS; 2017-04-12)
PROC: 3E04305 Introduction of Other Antineoplastic into Central Vein, Percutaneous Approach (ICD-10-PCS; 2017-04-13)
PROC: 0W9G3ZZ Drainage of Peritoneal Cavity, Percutaneous Approach (ICD-10-PCS; 2017-04-15)
PROC: 0W9G3ZZ Drainage of Peritoneal Cavity, Percutaneous Approach (ICD-10-PCS; 2017-04-18)
DX: I26.92 Saddle embolus of pulmonary artery without acute cor pulmonale (principal); J15.211 Pneumonia due to Methicillin susceptible Staphylococcus aureus; R57.0 Cardiogenic shock; J96.01 Acute respiratory failure with hypoxia; J69.0 Pneumonitis due to inhalation of food and vomit; A41.9 Sepsis, unspecified organism; G93.41 Metabolic encephalopathy; E43 Unspecified severe protein-calorie malnutrition; C16.9 Malignant neoplasm of stomach, unspecified; C78.7 Secondary malignant neoplasm of liver and intrahepatic bile duct; D62 Acute posthemorrhagic anemia; I24.0 Acute coronary thrombosis not resulting in myocardial infarction; J98.19 Other pulmonary collapse; Q85.8 Other phakomatoses, not elsewhere classified; I82.433 Acute embolism and thrombosis of popliteal vein, bilateral; T17.590A Other foreign object in bronchus causing asphyxiation, initial encounter; R18.8 Other ascites; Q60.0 Renal agenesis, unilateral; E87.0 Hyperosmolality and hypernatremia; K92.0 Hematemesis; Z86.718 Personal history of other venous thrombosis and embolism; Z79.02 Long term (current) use of antithrombotics/antiplatelets; F12.90 Cannabis use, unspecified, uncomplicated; D72.829 Elevated white blood cell count, unspecified; Y95 Nosocomial condition; E80.6 Other disorders of bilirubin metabolism; K59.00 Constipation, unspecified; D50.9 Iron deficiency anemia, unspecified; R73.9 Hyperglycemia, unspecified; R56.9 Unspecified convulsions; E87.5 Hyperkalemia